=== PATIENT | female | born 1935 | race Caucasian/White ===

== ENCOUNTER 2016-07-22 19:31 | Inpatient (IN) | payer OTHER, MEDICARE ==
[~2016-07-22] VITALS: Ht 160 cm; Wt 103.3 kg
[~2016-07-22 19:31] MED LIST: ALBU1AER9 INH; ALUM-30 PO; APIX1TAB PO; DICL1GEL28 TOP; DONE10TA12 PO; FAMO1CHW PO; FLUO40CA8 PO; LEVO88TA3 PO; LOSA100T65 PO; MULT-190 PO; MULT-513 PO; NEBI10TA2 PO; SIMV20TA2 PO; SYMIN/8045 INH; TRAZ1TAB16 PO
[2016-07-22] MEDS ORDERED: ONDANSETRON INJ 2 MG/ML 2 ML VIAL IV STA (19:53)
[2016-07-22] MEDS ORDERED: FENTANYL CITRATE INJ 50 MCG/1 ML 2 ML VIAL IV PRN (20:00)
--- NOTE | 2016-07-22 20:02 | EMERGENCY ROOM VISIT NOTE ---
History Report prepared by Phillip: Luis Friedman Under the Supervision of: Dr. Bang Martins D.O. First contact with patient: 19:35 Chief Complaint: HEADACHE Stated Complaint: HEADACHE History of Present Illness The patient is an 81 year old female who presents to the Emergency Room with complaints of an constant headache that began a few hours prior to arrival. She places the headache pain in her right eye and directly above the right eye. The patient's [id number] states that the patient has been having headaches and global weakness intermittently since she had a pulmonary embolism and a deep vein thrombosis roughly one year ago. Since these blood clots the patient has also been experiencing depression, and difficulty breathing, and difficulty balancing. She also complains of soreness in her joints and muscles. The patient has been experiencing these symptoms over the past year, but they were significantly worse today. The patient may have missed her dosage of daily medications today, but the family cannot be certain. She has not taken any pain medications for her headache. The family denies any falls recently, or nausea/ vomiting. Source of History: patient, family Onset: A few hours prior to arrival Position: head Timing: constant, other Associated Symptoms: + SOB, + fatigue, + weakness, No nausea, No vomiting Review of Systems See HPI for pertinent positives & negatives. A total of 10 systems reviewed and were otherwise negative. Past Medical & Surgical Medical Problems: (1) Asthma (2) Ataxia (3) Bronchitis (4) CKD (chronic kidney disease), stage III (5) Depression (6) Dyslipidemia (7) History of DVT (deep vein thrombosis) (8) History of pulmonary embolism (9) Hypertension (10) Hypothyroidism (11) Memory loss (12) Pneumonia (13) Type 2 diabetes mellitus Surgical Problems: (1) Status post appendectomy (2) Status post tonsillectomy Family History Heart disease Social History Smoking Status: Never Smoker Alcohol Use: none Drug Use: none Marital Status: Housing Status: lives alone Occupation Status: retired Current/Historical Medications Scheduled Apixaban (Eliquis), 2.5 MG PO BID Donepezil Hydrochloride (Aricept), 10 MG PO HS Fluoxetine (Prozac), 60 MG PO QAM Levothyroxine Sodium (Levothyroxine Sodium), 88 MCG PO QAM Losartan Potassium (Cozaar), 100 MG PO QAM Memantine (Namenda), 10 MG PO BID Nebivolol HCl (Bystolic), 5 MG PO HS Ocuvite Preservision (Ocuvite Preservision), 1 TAB PO DAILY Simvastatin (Zocor), 20 MG PO HS Trazodone Hcl (Desyrel), 50 MG PO UD Scheduled PRN Albuterol Hfa (Ventolin Hfa), 2 PUFFS INH QID PRN for SOB/Wheezing Alum & Mag Hydrox-Simethicone (Mylanta), 15 ML PO QID PRN for indigestion Budesonide/Formoterol Fumarate (Symbicort 80/4.5 Inhaler), 2 PUFFS INH BID PRN for asthma symptoms Allergies Coded Allergies: Codeine (Verified Allergy, Unknown, unk, 07/22/16) Fluticasone (Verified Allergy, Unknown, unk, 07/22/16) Macrolides and Ketolides (Verified Allergy, Unknown, PT UNSURE, 07/22/16) Milk Protein Extract (Verified Allergy, Unknown, unk, 07/22/16) Salmeterol (Verified Allergy, Unknown, unk, 07/22/16) Sulfa Antibiotics (Verified Allergy, Unknown, PT UNSURE, 07/22/16) Troleandomycin (Verified Allergy, Unknown, unk, 07/22/16) Physical Exam Vital Signs Date Time Temp Pulse Resp B/P Pulse Ox O2 Delivery O2 Flow Rate FiO2 07/23/16 02:00 50 20 149/67 96 Nasal Cannula 07/23/16 01:32 56 16 132/56 96 Room Air 2.0 07/23/16 01:00 53 07/23/16 00:25 87 Room Air 07/23/16 00:17 53 16 128/56 93 Room Air 07/22/16 23:01 59 20 147/60 98 Room Air 07/22/16 22:31 52 15 98 07/22/16 22:29 147/62 07/22/16 22:01 52 15 98 07/22/16 21:58 153/62 07/22/16 21:31 94 2.0 07/22/16 21:31 53 17 98 07/22/16 21:29 157/64 07/22/16 21:02 53 07/22/16 21:01 53 21 97 07/22/16 20:59 168/66 1/24/17 20:28 92 Room Air 07/22/16 19:38 36.7 58 18 174/91 95 Room Air Physical Exam GENERAL: Patient is awake, alert, and in no acute distress. Patient is resting comfortably and showing no signs of anxiety EYES: The conjunctivae are clear. The pupils are constricted but reactive. EARS, NOSE, MOUTH AND THROAT: The nose is without any evidence of any deformity. Mucous membranes are moist tongue is midline NECK: The neck is nontender and supple. RESPIRATORY: Normal respiratory effort is noted there is no evidence of wheezing rhonchi or rales CARDIOVASCULAR: Regular rate and rhythm noted there no murmurs rubs or gallops normal S1 normal S2 GASTROINTESTINAL: The abdomen is soft. Bowel sounds are present in all quadrants. Abdomen is nontender MUSCULOSKELETAL/EXTREMITIES: There is no evidence of gross deformity full range of motion is noted in the hips and shoulders SKIN: Trace pedal edema bilaterally. There is no obvious evidence of any rash. There are no petechiae, pallor or cyanosis noted. NEUROLOGIC: Patient is oriented to person place and time. Strength is diminished but equal. No drift noted. Medical Decision & Procedures ER Provider Diagnostic Interpretation: X ray results and stated below per my interpretation and radiology interpretation. Other radiology results per my review and radiologist interpretation: CHEST ONE VIEW PORTABLE CLINICAL HISTORY: Altered mental status. Weakness. COMPARISON STUDY: Chest radiograph April 16, 2016. FINDINGS: Lung volumes are normal. There is no pneumothorax or pleural effusion. Moderate cardiomegaly is unchanged. There is no evidence of pulmonary edema. Mild mediastinal widening is likely due to dilatation of the central pulmonary arteries. This is unchanged. The appearance of the chest is unchanged. IMPRESSION: No acute findings. Stable cardiomegaly. Electronically signed by: Tanner Zambrano M.D. 07/22/2016 8:11 PM Dictated Date/Time: 07/22/2016 8:[address] OF THE HEAD WITHOUT CONTRAST CLINICAL HISTORY: Altered mental status. Weakness. Headache. COMPARISON STUDY: Head CT September 26, 2013. CT DOSE: 537.48 mGy.cm TECHNIQUE: Helical axial images of the head were obtained without IV contrast. Automated exposure control was utilized for the study. FINDINGS: No acute intracranial hemorrhage, midline shift or mass effect is present. Ventricular system is stable. The basilar cisterns are patent. There are no extra-axial collections. Hu-white differentiation is maintained. White matter hypodensity suggests small vessel disease. There are no findings to suggest acute dural sinus thrombosis or acute territorial infarct. There are no significant calvarial abnormalities. There is minimal mucosal thickening of the sinuses. Mastoid air cells are clear. IMPRESSION: No acute intracranial findings. Electronically signed by: Tanner Zambrano M.D. 07/22/2016 8:56 PM Dictated Date/Time: 07/22/2016 8:54 PM Laboratory Results 07/22/16 19:00 Red Blood Count 4.18, Mean Corpuscular Volume 91.4, Mean Corpuscular Hemoglobin 30.6, Mean Corpuscular Hemoglobin Concent 33.5, Mean Platelet Volume 10.0, Neutrophils (%) (Auto) 75.0, Lymphocytes (%) (Auto) 16.8, Monocytes (%) (Auto) 6.3, Eosinophils (%) (Auto) 0.9, Basophils (%) (Auto) 0.3, Neutrophils # (Auto) 5.08, Lymphocytes # (Auto) 1.14, Monocytes # (Auto) 0.43, Eosinophils # (Auto) 0.06, Basophils # (Auto) 0.02 Test 07/22/16 19:00 White Blood Count 6.78 K/uL (4.8-10.8) Red Blood Count 4.18 M/uL (4.2-5.4) Hemoglobin 12.8 g/dL (12.0-16.0) Hematocrit 38.2 % (37-47) Mean Corpuscular Volume 91.4 fL (80-100) Mean Corpuscular Hemoglobin 30.6 pg (25-34) Mean Corpuscular Hemoglobin Concent 33.5 g/dl (32-36) Platelet Count 202 K/uL (130-400) Mean Platelet Volume 10.0 fL (7.4-10.4) Neutrophils (%) (Auto) 75.0 % Lymphocytes (%) (Auto) 16.8 % Monocytes (%) (Auto) 6.3 % Eosinophils (%) (Auto) 0.9 % Basophils (%) (Auto) 0.3 % Neutrophils # (Auto) 5.08 K/uL (1.4-6.5) Lymphocytes # (Auto) 1.14 K/uL (1.2-3.4) Monocytes # (Auto) 0.43 K/uL (0.11-0.59) Eosinophils # (Auto) 0.06 K/uL (0-0.5) Basophils # (Auto) 0.02 K/uL (0-0.2) RDW Standard Deviation 44.8 fL (36.4-46.3) RDW Coefficient of Variation 13.5 % (11.5-14.5) Immature Granulocyte % (Auto) 0.7 % Immature Granulocyte # (Auto) 0.05 K/uL (0.00-0.02) Prothrombin Time 11.8 SECONDS (9.0-12.0) Prothromb Time International Ratio 1.1 (0.9-1.1) Activated Partial Thromboplast Time 27.0 SECONDS (21.0-31.0) Partial Thromboplastin Ratio 1.0 Total Bilirubin 0.4 mg/dl (0.2-1) Direct Bilirubin < 0.1 mg/dl (0-0.2) Aspartate Amino Transf (AST/SGOT) 14 U/L (15-37) Alanine Aminotransferase (ALT/SGPT) 24 U/L (12-78) Alkaline Phosphatase 77 U/L (45-117) Total Creatine Kinase 27 U/L (26-192) Creatine Kinase MB 0.5 ng/ml (0.5-3.6) Creatine Kinase MB Ratio 1.9 (0-3.0) Troponin I < 0.015 ng/ml (0-0.045) Total Protein 6.5 gm/dl (6.4-8.2) Albumin 3.2 gm/dl (3.4-5.0) Lipase 395 U/L (73-393) Thyroid Stimulating Hormone (TSH) 2.240 uIu/ml (0.300-4.500) Free Thyroxine 1.17 ng/dl (0.80-1.60) Laboratory results per my review. Medications Administered Medications (Trade) Dose Ordered Sig/Conor Route Start Time Stop Time Status Last Admin Dose Admin Fentanyl Citrate (Fentanyl Inj) 50 mcg Q1H PRN IV 07/22/16 20:00 07/23/16 04:00 DC 07/22/16 20:39 50 MCG Ondansetron HCl (Zofran Inj) 4 mg NOW STAT IV 07/22/16 19:53 07/22/16 19:56 DC 07/22/16 20:36 4 MG Magnesium Sulfate (Magnesium Sulfate) 1 gm NOW STAT IV 07/22/16 20:56 07/22/16 20:57 DC 07/22/16 21:00 1 GM ECG Indication: weakness Rate (beats per minute): 54 Rhythm: sinus bradycardia Findings: no acute ischemic change, no ectopy Comparison ECG Date: 04/16/2016 Change: no significant change ED Course 1937: The patient was evaluated in room B2. A complete history and physical examination were performed. 1952: Ordered Zofran 4 mg IV. 1999: Ordered Fentanyl 50 mcg IV. 2055: Ordered Magnesium Sulfate 1 gm IV. 6: I reevaluated the patient at this time. She is doing well. 9: I reevaluated the patient at this time, she remains unchanged. 0050: I discussed the [facility], he will evaluate the patient for further treatment. Medical Decision The patient's history was concerning for headache. Differential diagnosis: Etiologies such as migraine headache, meningitis, sinusitis, CO exposure, ICH, SAH, infection, tumor, headache, sinus thrombosis, arterial dissection, as well as others were entertained. Additional history is obtained from the patient's family members. The patient is an 81-year-old female who presented to the emergency department with family members. The patient has been having a decline in her mentation and has been noticing generalized weakness which is been increasing over the last few months. The patient was diagnosed with a pulmonary embolism last year. She is on blood thinners. She's been having increasing weakness and fatigue and has not been as active according to the family members. She also complains of a headache. The patient was treated with IV pain medication IV antiemetics and IV magnesium because of a low magnesium level on laboratory testing and on subsequent reevaluation was feeling much better. I discussed the patient's laboratory and radiographic studies with her. She tried to ambulate with nursing staff but was very difficult with her ambulation. Her family was very concerned and did not feel she was safe to go home. For this reason I discussed her case with the on-call [facility] hospitalist group. They have agreed to evaluate the patient in the emergency department for further management and disposition. I discussed the patient's laboratory and radiographic studies with her and her family members. Consults Time Called: 40 Consulting Physician: Dr. Tiffanie Tierney Hospitalist Returned Call: [phone] I discussed the case with Dr. Tiffanie Tierney Hospitalist, he will evaluate the patient for further treatment. Impression Primary Impression: Headache Additional Impressions: Weakness Hypomagnesemia Memory difficulties Hypoxia Ataxia Scribe Attestation The scribe's documentation has been prepared under my direction and personally reviewed by me in its entirety. I confirm that the note above accurately reflects all work, treatment, procedures, and medical decision making performed by me. Departure Information Dispostion Being Evaluated By Hospitalist Referrals Gatito Monsalve M.D. (PCP) Patient Instructions My [facility] Problem Qualifiers Primary Impression: Headache Intractability: intractable
[2016-07-22 20:04] LABS: BASO % 0.3 %; BASO ABS # 0.02 K/uL (0-0.2); COMPLETE YES; EOS % 0.9 %; HEMATOCRIT 38.2 % (37-47); IG% 0.7 %; LYMPH % 16.8 %; LYMPH ABS # 1.14 K/uL (1.2-3.4); MEAN CELL VOLUME 91.4 fL (80-100); MEAN CORPUSCULAR HEMOGLOBIN 30.6 pg (25-34); MEAN CORPUSCULAR HGB CONC 33.5 g/dl (32-36); MONO % 6.3 %; PLATELET COUNT 202 K/uL (130-400); RED BLOOD COUNT 4.18 M/uL (4.2-5.4); WHITE BLOOD COUNT 6.78 K/uL (4.8-10.8)
--- NOTE | 2016-07-22 20:13 | DIAGNOSTIC IMAGING REPORT ---
CHEST ONE VIEW PORTABLE CLINICAL HISTORY: Altered mental status. Weakness. COMPARISON STUDY: Chest radiograph April 16, 2016. FINDINGS: Lung volumes are normal. There is no pneumothorax or pleural effusion. Moderate cardiomegaly is unchanged. There is no evidence of pulmonary edema. Mild mediastinal widening is likely due to dilatation of the central pulmonary arteries. This is unchanged. The appearance of the chest is unchanged. IMPRESSION: No acute findings. Stable cardiomegaly. Electronically signed by: Tanner Zambrano M.D. 07/22/2016 8:11 PM Dictated Date/Time: 07/22/2016 8:09 PM
[2016-07-22 20:15] LABS: ALT/SGPT 24 U/L (12-78); AST/SGOT 14 U/L (15-37); BLOOD UREA NITROGEN 22 mg/dl (7-18); BUN/CREATININE RATIO 13.9 (10-20); CALCIUM 9.4 mg/dl (8.5-10.1); CARBON DIOXIDE 33 mmol/L (21-32); CHLORIDE 103 mmol/L (98-107); GLUCOSE 173 mg/dl (70-99); MAGNESIUM 1.5 mg/dl (1.8-2.4); POTASSIUM 3.8 mmol/L (3.5-5.1); SODIUM 143 mmol/L (136-145)
[2016-07-22 20:22] LABS: INR 1.1 (0.9-1.1); PROTHROMBIN TIME (PATIENT) 11.8 SECONDS (9.0-12.0)
[2016-07-22 20:23] LABS: ALKALINE PHOSPHATASE 77 U/L (45-117); CKMB/CK RATIO 1.9 (0-3.0)
[2016-07-22] MEDS ORDERED: BYS5 PO (20:27)
[2016-07-22] MEDS ORDERED: VNTHFA/IN INH (20:27)
[2016-07-22] MEDS ORDERED: FLUO20CA35 PO (20:27)
[2016-07-22] MEDS ORDERED: NMN10 PO (20:27)
[2016-07-22] MEDS ORDERED: MAGNESIUM SULFATE 1GM / D5W 1 GM BAG IV STA (20:56)
--- NOTE | 2016-07-22 20:58 | DIAGNOSTIC IMAGING REPORT ---
CT OF THE HEAD WITHOUT CONTRAST CLINICAL HISTORY: Altered mental status. Weakness. Headache. COMPARISON STUDY: Head CT September 26, 2013. CT DOSE: 537.48 mGy.cm TECHNIQUE: Helical axial images of the head were obtained without IV contrast. Automated exposure control was utilized for the study. FINDINGS: No acute intracranial hemorrhage, midline shift or mass effect is present. Ventricular system is stable. The basilar cisterns are patent. There are no extra-axial collections. Hu-white differentiation is maintained. White matter hypodensity suggests small vessel disease. There are no findings to suggest acute dural sinus thrombosis or acute territorial infarct. There are no significant calvarial abnormalities. There is minimal mucosal thickening of the sinuses. Mastoid air cells are clear. IMPRESSION: No acute intracranial findings. Electronically signed by: Tanner Zambrano M.D. 07/22/2016 8:56 PM Dictated Date/Time: 07/22/2016 8:54 PM
[2016-07-22 23:35] LABS: URINE APPEARANCE CLEAR (CLEAR); URINE BILIRUBIN NEG (NEG); URINE COLOR YELLOW; URINE NITRITE NEG (NEG); URINE SPECIFIC GRAVITY 1.016 (1.000-1.030); UROBILINOGEN NEG (NEG)
[2016-07-22 23:45] LABS: MANUAL MICROSCOPIC REQUIRED? NO; REVIEW REQ? NO
[2016-07-23] VITALS (7 sets, daily range): BP systolic 97–130; BP diastolic 50–69; PULSE 51–60; TEMP 36.3–36.9; O2SAT 92–95; BMI 40.8
--- NOTE | 2016-07-23 02:29 | History and Physical ---
History & Physical Date & Time of Service: Jul 23, 2016 at 02:28 . Chief Complaint: headache, weakness, confusion . Primary Care Physician: Gatito Monsalve M.D. . History of Present Illness Source: patient, family, hospital records 81 [address]O female followed by Dr. Monsalve. History of hypertension, pulmonary embolism, and other problems noted below. She is a and lives by herself at [facility]. Family checks on her regularly and Home Health Nursing assists with her care. Admitted with DVT LLE + pulmonary emboli January 2015. Discharged on warfarin and eventually transitioned to apixaban which she continues to take. Has had problems with memory, unsteady gain, and depression since that hospitalization. Takes donepezil and memantine, but family doesn't feel that she has dementia. She was in her usual recent state of health until yesterday. Apparently her home health nurse had made some recommendations regarding her medication administration routine. There were no medications, but the nurse had recommended using a pill box. Her family checked on her yesterday afternoon (07/22) and found her to be confused and weaker / unsteadier than usual. No new specific focal neuro deficits. She complained of a headache. BP was noted to be 200/110. Family noted that she had not take her morning medications. Most of the above history was provided by the patient's family. She repeatedly stated that she did not feel well, but was not able to explain what symptoms she was experiencing. Family has been concerned that her appetite has declined and she has not been eating well. . Past Medical/Surgical History Chronic Medical Problems: (1) Asthma Status: Chronic (2) Ataxia Status: Chronic (3) Bronchitis Status: Resolved (4) CKD (chronic kidney disease), stage III Status: Chronic (5) Depression Status: Chronic (6) Dyslipidemia Status: Chronic (7) History of DVT (deep vein thrombosis) Permanent Comment: LLE 2014 Status: Chronic (8) History of pulmonary embolism Permanent Comment: 2014 Status: Chronic (9) Hypertension Status: Chronic (10) Hypothyroidism Status: Chronic (11) Memory loss Status: Chronic (12) Pneumonia Status: Resolved (13) Type 2 diabetes mellitus Permanent Comment: diet-controlled Status: Chronic Surgical Problems: (1) Status post appendectomy Status: Chronic (2) Status post tonsillectomy Status: Chronic . Family History Heart disease Social History Smoking Status: Never Smoker Alcohol Use: none Drug Use: none Marital Status: Housing status: lives alone Occupational Status: retired Allergies Coded Allergies: Codeine (Verified Allergy, Unknown, unk, 07/22/16) Fluticasone (Verified Allergy, Unknown, unk, 07/22/16) Macrolides and Ketolides (Verified Allergy, Unknown, PT UNSURE, 07/22/16) Milk Protein Extract (Verified Allergy, Unknown, unk, 07/22/16) Salmeterol (Verified Allergy, Unknown, unk, 07/22/16) Sulfa Antibiotics (Verified Allergy, Unknown, PT UNSURE, 07/22/16) Troleandomycin (Verified Allergy, Unknown, unk, 07/22/16) Home Medications Scheduled Apixaban (Eliquis), 2.5 MG PO BID Donepezil Hydrochloride (Aricept), 10 MG PO HS Fluoxetine (Prozac), 60 MG PO QAM Levothyroxine Sodium (Levothyroxine Sodium), 88 MCG PO QAM Losartan Potassium (Cozaar), 100 MG PO QAM Memantine (Namenda), 10 MG PO BID Nebivolol HCl (Bystolic), 5 MG PO HS Ocuvite Preservision (Ocuvite Preservision), 1 TAB PO DAILY Simvastatin (Zocor), 20 MG PO HS Trazodone Hcl (Desyrel), 50 MG PO UD Scheduled PRN Albuterol Hfa (Ventolin Hfa), 2 PUFFS INH QID PRN for SOB/Wheezing Alum & Mag Hydrox-Simethicone (Mylanta), 15 ML PO QID PRN for indigestion Budesonide/Formoterol Fumarate (Symbicort 80/4.5 Inhaler), 2 PUFFS INH BID PRN for asthma symptoms Review of Systems (reliability uncertain because of confusion) . Constitutional: + weakness, No fever, No weight loss Eyes: + worsening of vision (macular degen) ENT: No hearing loss, No sore throat Respiratory: + dyspnea on exertion, No cough, No wheezing Cardiovascular: No chest pain, No edema, No palpitations Abdomen: + constipation, + problem reported (anorexia), No GI bleeding, No diarrhea, No nausea, No pain, No vomiting Musculoskeletal: + joint pain Genitourinary - Female: No dysuria, No hematuria Neurologic: + balance problems, + memory loss, + weakness Psychiatric: + depression symptoms Endocrine: + fatigue, No excessive thirst, No excessive urination Hematologic / Lymphatic: + abnormal bleeding/bruising, No swollen lymph nodes Integumentary: No new/changing skin lesions, No rash Physical Exam Vital Signs Date Time Temp Pulse Resp B/P Pulse Ox O2 Delivery O2 Flow Rate FiO2 07/23/16 02:00 50 20 149/67 96 Nasal Cannula 07/23/16 01:32 56 16 132/56 96 Room Air 2.0 07/23/16 01:00 53 07/23/16 00:25 87 Room Air 07/23/16 00:17 53 16 128/56 93 Room Air 07/22/16 23:01 59 20 147/60 98 Room Air 07/22/16 22:31 52 15 98 07/22/16 22:29 147/62 07/22/16 22:01 52 15 98 07/22/16 21:58 153/62 07/22/16 21:31 94 2.0 07/22/16 21:31 53 17 98 07/22/16 21:29 157/64 07/22/16 21:02 53 07/22/16 21:01 53 21 97 07/22/16 20:59 168/66 07/22/16 20:28 92 Room Air 07/22/16 19:38 36.7 58 18 174/91 95 Room Air General Appearance: WD/WN, no apparent distress, + pertinent finding (upset) Head: normocephalic, atraumatic Eyes: normal inspection, PERRL, EOMI, sclerae normal, + pertinent finding ( conjunctivae pink) ENT: normal ENT inspection, hearing grossly normal, pharynx normal, + pertinent finding (upper and lower dentures) Neck: supple, no adenopathy, thyroid normal, no JVD, no carotid bruits, trachea midline Respiratory/Chest: lungs clear, normal breath sounds, no respiratory distress, no accessory muscle use Cardiovascular: regular rate, rhythm, no edema, no gallop, no JVD, no murmur, + gallop/S4 Abdomen/GI: normal bowel sounds, soft, no organomegaly, no pulsatile mass, + tenderness (?? 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 as tested (PERRL, EOMI, no facial palsy), no motor/sensory deficits, alert, + abnormal reflexes (patellar DTR's hyperreflexic ), + depressed affect, + disoriented (oriented to person, place, month, year, president) Skin: normal color, warm/dry, no rash Lymphatic: no adenopathy Diagnostics Laboratory Results Results Past 24 Hours Test 07/22/16 19:00 07/22/16 23:20 Range/Units White Blood Count 6.78 4.8-10.8 K/uL Red Blood Count 4.18 4.2-5.4 M/uL Hemoglobin 12.8 12.0-16.0 g/dL Hematocrit 38.2 37-47 % Mean Corpuscular Volume 91.4 80-100 fL Mean Corpuscular Hemoglobin 30.6 25-34 pg Mean Corpuscular Hemoglobin Concent 33.5 32-36 g/dl Platelet Count 202 130-400 K/uL Mean Platelet Volume 10.0 7.4-10.4 fL Neutrophils (%) (Auto) 75.0 % Lymphocytes (%) (Auto) 16.8 % Monocytes (%) (Auto) 6.3 % Eosinophils (%) (Auto) 0.9 % Basophils (%) (Auto) 0.3 % Neutrophils # (Auto) 5.08 1.4-6.5 K/uL Lymphocytes # (Auto) 1.14 1.2-3.4 K/uL Monocytes # (Auto) 0.43 0.11-0.59 K/uL Eosinophils # (Auto) 0.06 0-0.5 K/uL Basophils # (Auto) 0.02 0-0.2 K/uL RDW Standard Deviation 44.8 36.4-46.3 fL RDW Coefficient of Variation 13.5 11.5-14.5 % Immature Granulocyte % (Auto) 0.7 % Immature Granulocyte # (Auto) 0.05 0.00-0.02 K/uL Prothrombin Time 11.8 9.0-12.0 SECONDS Prothromb Time International Ratio 1.1 0.9-1.1 Activated Partial Thromboplast Time 27.0 21.0-31.0 SECONDS Partial Thromboplastin Ratio 1.0 Sodium Level 143 136-145 mmol/L Potassium Level 3.8 3.5-5.1 mmol/L Chloride Level 103 98-107 mmol/L Carbon Dioxide Level 33 21-32 mmol/L Anion Gap 7.0 3-11 mmol/L Blood Urea Nitrogen 22 7-18 mg/dl Creatinine 1.60 0.60-1.20 mg/dl Est Creatinine Clear Calc Drug Dose 31.4 ml/min Estimated GFR () 34.4 Estimated GFR (Non- 29.7 BUN/Creatinine Ratio 13.9 10-20 Random Glucose 173 70-99 mg/dl Calcium Level 9.4 8.5-10.1 mg/dl Magnesium Level 1.5 1.8-2.4 mg/dl Total Bilirubin 0.4 0.2-1 mg/dl Direct Bilirubin < 0.1 0-0.2 mg/dl Aspartate Amino Transf (AST/SGOT) 14 15-37 U/L Alanine Aminotransferase (ALT/SGPT) 24 12-78 U/L Alkaline Phosphatase 77 45-117 U/L Total Creatine Kinase 27 26-192 U/L Creatine Kinase MB 0.5 0.5-3.6 ng/ml Creatine Kinase MB Ratio 1.9 0-3.0 Troponin I < 0.015 0-0.045 ng/ml Total Protein 6.5 6.4-8.2 gm/dl Albumin 3.2 3.4-5.0 gm/dl Lipase 395 73-393 U/L Thyroid Stimulating Hormone (TSH) 2.240 0.300-4.500 uIu/ml Free Thyroxine 1.17 0.80-1.60 ng/dl Urine Color YELLOW Urine Appearance CLEAR CLEAR Urine pH 6.0 4.5-7.5 Urine Specific [place] 1.016 1.000-1.030 Urine Protein NEG NEG Urine Glucose (UA) NEG NEG Urine Ketones NEG NEG Urine Occult Blood NEG NEG Urine Nitrite NEG NEG Urine Bilirubin NEG NEG Urine Urobilinogen NEG NEG Urine Leukocyte Esterase TRACE NEG Urine WBC (Auto) 1-5 0-5 /hpf Urine RBC (Auto) 10-30 0-4 /hpf Urine Hyaline Casts (Auto) 1-5 0-5 /lpf Urine Epithelial Cells (Auto) 10-20 0-5 /lpf Urine Bacteria (Auto) NEG NEG Diagnostic Radiology CHEST ONE VIEW PORTABLE IMPRESSION: No acute findings. Stable cardiomegaly. Electronically signed by: Tanner Zambrano M.D. 07/22/2016 8:[address] OF THE HEAD WITHOUT CONTRAST FINDINGS: No acute intracranial hemorrhage, midline shift or mass effect is present. Ventricular system is stable. The basilar cisterns are patent. There are no extra-axial collections. Hu-white differentiation is maintained. White matter hypodensity suggests small vessel disease. There are no findings to suggest acute dural sinus thrombosis or acute territorial infarct. There are no significant calvarial abnormalities. There is minimal mucosal thickening of the sinuses. Mastoid air cells are clear. IMPRESSION: No acute intracranial findings. Electronically signed by: Tanner Zambrano M.D. 07/22/2016 8:56 PM . EKG EKG performed at 20:27 reviewed and demonstrated SB at 54 / minute, poor R-wave progression, inverted T-waves V1-V2, no acute ST changes. . Impression Assessment and Plan ALTERED MENTAL STATUS / ATAXIA Patient presented with worsening confusion and worsening generalized weakness / ataxia (present for more than 1 year, but acutely worse). Apparently did not take her morning meds. BP was significantly elevated. On apixaban for history of VTE. Head CT negative for bleed or other apparent acute event. Altered mental status may have been due to missing her meds or possibly due to elevated BP. Check MRI brain. Consult Neurology re: memory loss + ataxia. PT / OT evals. HYPERTENSION BP 200/110 at home. Continue losartan. Continue nebivolol with caution in light of bradycardia. Consider switching from nebivolol to amlodipine. BRADYCARDIA On nebivolol for hypertension. TSH normal. Monitor on Telemetry Unit. HYPOXIA / SPRAGUE Family has noted SPRAGUE. History of asthma, but appears to be stable. O2 sats noted to be in the 80's with ambulation in ED. Acute PE unlikely in light of chronic anticoagulation. Chest x-ray shows cardiomegaly. EKG - ? old septal infarct. Check echo. Consider CTA chest if creatinine improves with hydration. Consider PFT's. HISTORY PULMONARY EMBOLISM + DVT Continue apixaban. ASTHMA Uses Symbicort and albuterol PRN. Try Symbicort as scheduled med. Consider PFT's. HYPOMAGNESEMIA Mg 1.5. No diarrhea. Not taking diuretics. Probably due to inadequate dietary intake. Received IV replacement in ED. Follow. ANOREXIA / ? ABDOMINAL TENDERNESS / MICROSCOPIC HEMATURIA Family has noted declining appetite. CT 2014 showed small pancreatic lesion. Abdominal exam- ?? diffuse mild tenderness. UA today shows microscopic hematuria. Lipase slightly elevated. LFT's OK. Consider CT abdomen and pelvis, ideally with IV and oral contrast, if creatinine improves (could be done with CTA chest). Check urine cytology. CKD III Serum creatinine at recent baseline of ~ 1.6. Try IV fluids to see if they offer any improvement. DM TYPE 2 Diet controlled. Random blood sugar 173 in ED. Check hemoglobin A1C. Tight control not indicated given patient's advanced age and co-morbidities. Follow. HYPOTHYROIDISM TSH normal. Continue levothyroxine. DYSLIPIDEMIA Continue simvastatin. DEPRESSION Continue fluoxetine and trazodone. MEMORY DEFICITS Patient has been experiencing memory difficulties since her PE in 2014. CT demonstrates small vessel ischemic changes- may have vascular dementia. Mother had history of apparent Alzheimer's disease. ? pseudodementia due to depression. TSH normal on levothyroxine. Check vitamin B12. Continue donepezil and memantine. Consult Neuro. 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 Continue apixaban. RESUSCITATION STATUS Discussed with patient and her family. She has a living will. She would like resuscitation attempted in the event of a cardiopulmonary arrest if there is a reasonable chance of a meaningful recovery, but does not want prolonged extraordinary measures if prognosis is poor. Therefore, code status = "Level 1" (full resuscitation). DISPOSITION Admit to Telemetry Unit. Discharge disposition to be determined. Internal Medicine follow-up with Dr. Monsalve. . VTE Prophylaxis Given or contraindicated: Other Anticoagulation (apixaban) Additional Copies To Gatito Monsalve M.D.
[2016-07-23] MEDS ORDERED: ACETAMINOPHEN 325 MG TAB PO PRN (02:30)
[2016-07-23] MEDS ORDERED: TRAZODONE HCL 50 MG TAB PO SCH (03:00)
[2016-07-23] MEDS ORDERED: POTASSIUM CHLORIDE IV SCH (04:15)
[2016-07-23] MEDS ORDERED: MAG SULFATE IV SCH (04:15)
[2016-07-23] MEDS ORDERED: [UNRECOGNIZED DRUG - OTHER] IV SCH (04:15)
[2016-07-23] MEDS ORDERED: PNEUMOCOCCAL ADMINISTRATION CHARGE ONE (06:15)
[2016-07-23] MEDS ORDERED: PNEUMOCOCCAL POLYSACCHARIDES 25 MCG/0.5 ML VIAL/SYR IM. ONE (06:15)
[2016-07-23] MEDS ORDERED: INFLUENZA ADMINISTRATION CHARGE ONE (06:15)
[2016-07-23] MEDS ORDERED: INFLUENZA VIRUS QUAD VACCINE 0.5 ML SYR IM. ONE (06:15)
[2016-07-23] MEDS ORDERED: ALBUTEROL HFA 8 GM INHALER INH PRN (06:45)
[2016-07-23] MEDS ORDERED: ALUMINUM/MAGNESIUM/SIMETH (MAALOX MAX) 30 ML UDC PO PRN (06:45)
[2016-07-23] MEDS: CEROVITE ADV FORMULA TAB PO SCH (08:34)
[2016-07-23] MEDS: APIXABAN 2.5 MG TAB PO SCH ×2 (08:39→20:43)
[2016-07-23] MEDS: FLUOXETINE HCL 20 MG CAP PO SCH (08:39)
[2016-07-23] MEDS: MEMANTINE 10 MG TAB PO SCH ×2 (08:40→20:50)
[2016-07-23] MEDS ORDERED: LOSARTAN POTASSIUM 50 MG TAB PO SCH (09:00)
--- NOTE | 2016-07-23 09:39 | DIAGNOSTIC IMAGING REPORT ---
MRI OF THE BRAIN WITHOUT CONTRAST CLINICAL HISTORY: Headaches, confusion and ataxia. COMPARISON STUDY: Head CTs September 26, 2013 and July 22, 2016. TECHNIQUE: Utilizing a 1.5 Agata magnet and dedicated coil, multiplanar, multiecho imaging of the brain was performed without IV contrast. FINDINGS: There are no areas of restricted diffusion. No acute intracranial hemorrhage, midline shift or mass effect is present. Ventricular system is unremarkable. The basilar cisterns are patent. There are no extra-axial collections. Moderate white matter T2 hyperintense foci are subcortical and periventricular in distribution. There is minimal mucosal thickening of the sinuses. Calvarium is intact. No intracranial masses identified on this unenhanced exam. IMPRESSION: 1. No acute intracranial findings. 2. Moderate small vessel disease. Electronically signed by: Tanner Zambrano M.D. 07/23/2016 9:37 AM Dictated Date/Time: 07/23/2016 9:26 AM
[2016-07-23 11:48] LABS: BUN/CREATININE RATIO 13.7 (10-20); CALCIUM 8.8 mg/dl (8.5-10.1); CREATININE 1.8 mg/dl (0.60-1.20); MAGNESIUM 2.1 mg/dl (1.8-2.4); POTASSIUM 4.5 mmol/L (3.5-5.1)
[2016-07-23] MEDS ORDERED: BUDESONIDE/FORMOTEROL FUMARATE 80/4.5 60 PUFFS/INHALER INH PRN (12:15)
[2016-07-23] MEDS ORDERED: PERFLUTREN LIPID MICROSPHERE (DEFINITY) IV ONE (15:17)
--- NOTE | 2016-07-23 15:54 | Neurology Consultation ---
Neurology Consultation Date of Consultation: Jul 23, 2016. Attending Physician: Aditi Youssef MD Primary Care Physician: Gatito Monsalve M.D. Reason for Consultation: ataxia progressive History of Present Illness Source: patient Dana is a 81 year old female who has a PMH hypothyroid, depression, PE/DVT , memory loss, asthma. She is a and lives at [facility]. She states she has visiting nursing to help with medications but she takes them herself and not sure if she is taking them right. she is still on apixaban. She states she has had problems with memory, unsteady gain, and depression since that hospitalization for her PE. Unclear why she was started on donepezil and memantine. She denies falls, SOB, CP, one side weakness, numbness, tingling, N, V. She states she doesn't do anything anymore. She did read alot but her glasses need changed and she doesn't have the money to get a new pair. she knows she doesn't eat well because she doesn't cook anymore. Past Medical/Surgical History Medical Problems: (1) Asthma Status: Chronic (2) Ataxia Status: Acute (3) Ataxia Status: Chronic (4) Bradycardia Status: Acute (5) Bronchitis, acute Status: Acute (6) CKD (chronic kidney disease), stage III Status: Chronic (7) Depression Status: Chronic (8) Dyslipidemia Status: Chronic (9) Headache Status: Acute (10) History of DVT (deep vein thrombosis) Permanent Comment: LL2014 Status: Chronic (11) History of pulmonary embolism Permanent Comment: 2014 Status: Chronic (12) Hypertension Status: Chronic (13) Hypomagnesemia Status: Acute (14) Hypothyroidism Status: Chronic (15) Hypoxia Status: Acute (16) Memory loss Status: Chronic (17) Precordial chest pain Status: Acute (18) Type 2 diabetes mellitus Permanent Comment: diet-controlled Status: Chronic (19) Weakness Status: Acute Surgical Problems: (1) Status post appendectomy Status: Chronic (2) Status post tonsillectomy Status: Chronic Social History Smoking Status: Never smoker Alcohol Use: none Drug Use: none Marital Status: Housing Status: lives alone Occupation Status: retired Allergies Coded Allergies: Codeine (Verified Allergy, Unknown, unk, 07/22/16) Fluticasone (Verified Allergy, Unknown, unk, 07/22/16) Macrolides and Ketolides (Verified Allergy, Unknown, PT UNSURE, 07/22/16) Milk Protein Extract (Verified Allergy, Unknown, unk, 07/22/16) Salmeterol (Verified Allergy, Unknown, unk, 07/22/16) Sulfa Antibiotics (Verified Allergy, Unknown, PT UNSURE, 07/22/16) Troleandomycin (Verified Allergy, Unknown, unk, 07/22/16) Current Inpatient Medications Current Inpatient Medications Medications (Trade) Dose Ordered Sig/Conor Route Start Time Stop Time Status Last Admin Dose Admin Acetaminophen (Tylenol Tab) 650 mg Q4H PRN PO 07/23/16 02:30 08/22/16 02:29 Albuterol (Ventolin Hfa Inhaler) 2 puffs QID PRN INH 07/23/16 06:45 08/22/16 06:44 Apixaban (Eliquis Tab) 2.5 mg BID PO 07/23/16 09:00 08/22/16 08:59 07/23/16 08:39 2.5 MG Donepezil HCl (Aricept Tab) 10 mg HS PO 07/23/16 21:00 08/22/16 20:59 Fluoxetine HCl (Prozac Cap) 60 mg QAM PO 07/23/16 09:00 08/22/16 08:59 07/23/16 08:39 60 MG Levothyroxine Sodium (Synthroid Tab) 88 mcg DAILYBB PO 07/24/16 06:30 08/23/16 06:29 Losartan Potassium (coZAAR TAB) 100 mg QAM PO 07/23/16 09:00 08/22/16 08:59 Future Hold 07/23/16 08:38 100 MG Memantine (Namenda Tab) 10 mg BID PO 07/23/16 09:00 08/22/16 08:59 07/23/16 08:40 10 MG Multivitamins/ Minerals (Multivitamin W/ Minerals Tab) 1 tab DAILY PO 07/23/16 09:00 08/22/16 08:59 07/23/16 08:34 1 TAB Simvastatin (Zocor Tab) 20 mg HS PO 07/23/16 21:00 08/22/16 20:59 Trazodone HCl (Desyrel Tab) 50 mg BID@1700,2100 PO 07/23/16 17:00 08/22/16 16:59 Al Hydrox/Mg Hydrox/Simethicone (Maalox Max Susp) 15 ml QID PRN PO 07/23/16 06:45 08/22/16 06:44 Nebivolol (Bystolic Tab) 5 mg HS PO 07/23/16 21:00 08/22/16 20:59 Future Hold Budesonide/ Formoterol Fumarate (Symbicort 80/ 4.5 Inh) 2 puffs BID PRN INH 07/23/16 12:15 08/22/16 12:14 Physical Exam Vital Signs (Past 24 Hrs): Date Time Temp Pulse Resp B/P Pulse Ox O2 Delivery O2 Flow Rate FiO2 07/23/16 12:23 95 Room Air 07/23/16 11:19 36.6 58 18 97/61 95 Room Air 07/23/16 08:00 92 Room Air 07/23/16 07:22 36.5 51 18 103/50 92 Room Air 07/23/16 04:53 36.3 53 16 130/69 Room Air 07/23/16 03:02 51 18 137/59 99 07/23/16 02:00 50 20 149/67 96 Nasal Cannula 07/23/16 01:32 56 16 132/56 96 Room Air 2.0 07/23/16 01:00 53 07/23/16 00:25 87 Room Air 07/23/16 00:17 53 16 128/56 93 Room Air 07/22/16 23:01 59 20 147/60 98 Room Air 07/22/16 22:31 52 15 98 07/22/16 22:29 147/62 07/22/16 22:01 52 15 98 07/22/16 21:58 153/62 07/22/16 21:31 94 2.0 07/22/16 21:31 53 17 98 07/22/16 21:29 157/64 07/22/16 21:02 53 07/22/16 21:01 53 21 97 07/22/16 20:59 168/66 07/22/16 20:28 92 Room Air 07/22/16 19:38 36.7 58 18 174/91 95 Room Air Physical Exam: Constitutional: appearance nourished, healthy and obese Ears, Nose, Mouth and Throat: mucous membranes moist, no injection and skin normal, eyes normal Cardiovascular: normal S-1 and S-2 and regular rate and rhythm Respiratory: clear to auscultation (CTA) and no rales, rhonchi or wheeze Musculoskeletal: no peripheral edema and good distal pulses Skin: no stigmata of neurocutaneous disease noted and normal and intact Eyes: extraocular muscles intact (EOMI) and pupils equal, round and reactive to light (PERRL) NEUROLOGIC EXAMINATION: Mental status: Alert and interactive Oriented to full date and location, president, location, can follow close eye stick out tongue point right hand to ceiling Oriented to person Speech fluent with no evidence of aphasia Cranial Nerves smile eye brow raise symmetric, tongue midline Reflexes: Deep tendon reflexes were symmetrical and graded 2/5. Plantar responses were flexor. Sensory: GT proprioception in tact bilaterally, vibration in tact cool touch decrease mid walters down Coordination: finger to nose without bi pass, essential tremor L> R Gait/Stance: Posture normal. walked from wheel chair to bedside chair with minimal assistance Motor: Negative for pronator drift of out stretched arms with eyes closed. Strength: biceps triceps hand formula mixer 5/5 bilaterally hip flex plantar flex ext bilaterally 5 /5 Laboratory Results Past 24 Hours: 07/22/16 19:00 Red Blood Count 4.18, Mean Corpuscular Volume 91.4, Mean Corpuscular Hemoglobin 30.6, Mean Corpuscular Hemoglobin Concent 33.5, Mean Platelet Volume 10.0, Neutrophils (%) (Auto) 75.0, Lymphocytes (%) (Auto) 16.8, Monocytes (%) (Auto) 6.3, Eosinophils (%) (Auto) 0.9, Basophils (%) (Auto) 0.3, Neutrophils # (Auto) 5.08, Lymphocytes # (Auto) 1.14, Monocytes # (Auto) 0.43, Eosinophils # (Auto) 0.06, Basophils # (Auto) 0.02 07/23/16 11:10 Test 07/22/16 19:00 07/22/16 23:20 07/23/16 11:10 White Blood Count 6.78 K/uL (4.8-10.8) Red Blood Count 4.18 M/uL (4.2-5.4) Hemoglobin 12.8 g/dL (12.0-16.0) Hematocrit 38.2 % (37-47) Mean Corpuscular Volume 91.4 fL (80-100) Mean Corpuscular Hemoglobin 30.6 pg (25-34) Mean Corpuscular Hemoglobin Concent 33.5 g/dl (32-36) Platelet Count 202 K/uL (130-400) Mean Platelet Volume 10.0 fL (7.4-10.4) Neutrophils (%) (Auto) 75.0 % Lymphocytes (%) (Auto) 16.8 % Monocytes (%) (Auto) 6.3 % Eosinophils (%) (Auto) 0.9 % Basophils (%) (Auto) 0.3 % Neutrophils # (Auto) 5.08 K/uL (1.4-6.5) Lymphocytes # (Auto) 1.14 K/uL (1.2-3.4) Monocytes # (Auto) 0.43 K/uL (0.11-0.59) Eosinophils # (Auto) 0.06 K/uL (0-0.5) Basophils # (Auto) 0.02 K/uL (0-0.2) RDW Standard Deviation 44.8 fL (36.4-46.3) RDW Coefficient of Variation 13.5 % (11.5-14.5) Immature Granulocyte % (Auto) 0.7 % Immature Granulocyte # (Auto) 0.05 K/uL (0.00-0.02) Prothrombin Time 11.8 SECONDS (9.0-12.0) Prothromb Time International Ratio 1.1 (0.9-1.1) Activated Partial Thromboplast Time 27.0 SECONDS (21.0-31.0) Partial Thromboplastin Ratio 1.0 Total Bilirubin 0.4 mg/dl (0.2-1) Direct Bilirubin < 0.1 mg/dl (0-0.2) Aspartate Amino Transf (AST/SGOT) 14 U/L (15-37) Alanine Aminotransferase (ALT/SGPT) 24 U/L (12-78) Alkaline Phosphatase 77 U/L (45-117) Total Creatine Kinase 27 U/L (26-192) Creatine Kinase MB 0.5 ng/ml (0.5-3.6) Creatine Kinase MB Ratio 1.9 (0-3.0) Troponin I < 0.015 ng/ml (0-0.045) Total Protein 6.5 gm/dl (6.4-8.2) Albumin 3.2 gm/dl (3.4-5.0) Lipase 395 U/L (73-393) Thyroid Stimulating Hormone (TSH) 2.240 uIu/ml (0.300-4.500) Free Thyroxine 1.17 ng/dl (0.80-1.60) Urine Color YELLOW Urine Appearance CLEAR (CLEAR) Urine pH 6.0 (4.5-7.5) Urine Specific [place] 1.016 (1.000-1.030) Urine Protein NEG (NEG) Urine Glucose (UA) NEG (NEG) Urine Ketones NEG (NEG) Urine Occult Blood NEG (NEG) Urine Nitrite NEG (NEG) Urine Bilirubin NEG (NEG) Urine Urobilinogen NEG (NEG) Urine Leukocyte Esterase TRACE (NEG) Urine WBC (Auto) 1-5 /hpf (0-5) Urine RBC (Auto) 10-30 /hpf (0-4) Urine Hyaline Casts (Auto) 1-5 /lpf (0-5) Urine Epithelial Cells (Auto) 10-20 /lpf (0-5) Urine Bacteria (Auto) NEG (NEG) Anion Gap 7.0 mmol/L (3-11) Est Creatinine Clear Calc Drug Dose 27.9 ml/min Estimated GFR () 29.9 Estimated GFR (Non- 25.8 BUN/Creatinine Ratio 13.7 (10-20) Calcium Level 8.8 mg/dl (8.5-10.1) Magnesium Level 2.1 mg/dl (1.8-2.4) Vitamin B12 Level 382 pg/mL (211-911) Imaging MRI brain without-. No acute intracranial findings. Moderate small vessel disease. CT head- no hemorrhage or acute findings. Impression 81 year old female with progressive ataxia and memory issues Plan 1. PT/OT for discharge needs 2. chronic renal disease and lyte replacement 3. unclear when trazadone was started 4. may need higher level of care 5. not eating and drinking well -nutrition consult 6. as out patient neuropsych consult may be helpful to sort out if this is dementia issues or depression 7. psychiatry while in hospital I have seen and discussed above patient with Dr Mynor Soto, neurology Patient seen and interviewed case discussed with Brigitte Alberto and Aditi Youssef MD Story is vague and complaints are hared to pin down Exam is nonfocal and Imaging is not out of keeping for age I am not sure thet there is a significant dementia here and suspect a chronic depression with more of a pseudodemtia and wonder if aricept and nameda combination are indicated and whether they may be contributing to some of the symptoms ie malaise fatigue and imbalance Agree with above plans particularly the need for psychiatry input we will see tomorrow Mynor Soto MD
--- NOTE | 2016-07-23 17:10 | Progress Note ---
Medicine Progress Note Date & Time of Visit: Jul 23, 2016 at 17:03. Subjective Patient seen and examined. Family present at bedside and updated. Patient feels tired today. Objective Last 8 Hrs Date Time Temp Pulse Resp B/P Pulse Ox O2 Delivery O2 Flow Rate FiO2 07/23/16 12:23 95 Room Air 07/23/16 11:19 36.6 58 18 97/61 95 Room Air Physical Exam: General-awake; alert; NAD; sitting in chair Eyes-EOMI; no scleral icterus Neck-no stridor; trachea midline Lungs-CTA bilaterally; no wheezes/crackles Heart-RRR; no m/r/g Abdomen-soft; NTND; nBS Extremities-no c/c/e; no deformity Neuro-no gross focal deficits Laboratory Results: Last 24 Hours Test 07/22/16 19:00 07/22/16 23:20 07/23/16 11:10 White Blood Count 6.78 K/uL Red Blood Count 4.18 M/uL Hemoglobin 12.8 g/dL Hematocrit 38.2 % Mean Corpuscular Volume 91.4 fL Mean Corpuscular Hemoglobin 30.6 pg Mean Corpuscular Hemoglobin Concent 33.5 g/dl Platelet Count 202 K/uL Mean Platelet Volume 10.0 fL Neutrophils (%) (Auto) 75.0 % Lymphocytes (%) (Auto) 16.8 % Monocytes (%) (Auto) 6.3 % Eosinophils (%) (Auto) 0.9 % Basophils (%) (Auto) 0.3 % Neutrophils # (Auto) 5.08 K/uL Lymphocytes # (Auto) 1.14 K/uL Monocytes # (Auto) 0.43 K/uL Eosinophils # (Auto) 0.06 K/uL Basophils # (Auto) 0.02 K/uL RDW Standard Deviation 44.8 fL RDW Coefficient of Variation 13.5 % Immature Granulocyte % (Auto) 0.7 % Immature Granulocyte # (Auto) 0.05 K/uL Prothrombin Time 11.8 SECONDS Prothromb Time International Ratio 1.1 Activated Partial Thromboplast Time 27.0 SECONDS Partial Thromboplastin Ratio 1.0 Sodium Level 143 mmol/L 143 mmol/L Potassium Level 3.8 mmol/L 4.5 mmol/L Chloride Level 103 mmol/L 103 mmol/L Carbon Dioxide Level 33 mmol/L 33 mmol/L Anion Gap 7.0 mmol/L 7.0 mmol/L Blood Urea Nitrogen 22 mg/dl 25 mg/dl Creatinine 1.60 mg/dl 1.80 mg/dl Est Creatinine Clear Calc Drug Dose 31.4 ml/min 27.9 ml/min Estimated GFR () 34.4 29.9 Estimated GFR (Non- 29.7 25.8 BUN/Creatinine Ratio 13.9 13.7 Random Glucose 173 mg/dl 226 mg/dl Calcium Level 9.4 mg/dl 8.8 mg/dl Magnesium Level 1.5 mg/dl 2.1 mg/dl Total Bilirubin 0.4 mg/dl Direct Bilirubin < 0.1 mg/dl Aspartate Amino Transf (AST/SGOT) 14 U/L Alanine Aminotransferase (ALT/SGPT) 24 U/L Alkaline Phosphatase 77 U/L Total Creatine Kinase 27 U/L Creatine Kinase MB 0.5 ng/ml Creatine Kinase MB Ratio 1.9 Troponin I < 0.015 ng/ml Total Protein 6.5 gm/dl Albumin 3.2 gm/dl Lipase 395 U/L Thyroid Stimulating Hormone (TSH) 2.240 uIu/ml Free Thyroxine 1.17 ng/dl Urine Color YELLOW Urine Appearance CLEAR Urine pH 6.0 Urine Specific [place] 1.016 Urine Protein NEG Urine Glucose (UA) NEG Urine Ketones NEG Urine Occult Blood NEG Urine Nitrite NEG Urine Bilirubin NEG Urine Urobilinogen NEG Urine Leukocyte Esterase TRACE Urine WBC (Auto) 1-5 /hpf Urine RBC (Auto) 10-30 /hpf Urine Hyaline Casts (Auto) 1-5 /lpf Urine Epithelial Cells (Auto) 10-20 /lpf Urine Bacteria (Auto) NEG Vitamin B12 Level 382 pg/mL Assessment & Plan ALTERED MENTAL STATUS / ATAXIA Patient presented with worsening confusion and worsening generalized weakness / ataxia (present for more than 1 year, but acutely worse). BP was significantly elevated on admission. Head CT negative for bleed or other apparent acute event. Altered mental status may have been due to missing her meds or possibly due to elevated BP. MRI brain with moderate small vessel disease. Neurology consulted. PT / OT evals. HYPERTENSION BP 200/110 at home. Received losartan. Will hold losartan and nebivolol for now due to low-normal blood pressures. BRADYCARDIA On nebivolol for hypertension. On hold. TSH normal. Monitor on Telemetry Unit. HYPOXIA / SPRAGUE Family has noted SPRAGUE. History of asthma, but appears to be stable. O2 sats noted to be in the 80's with ambulation in ED. Acute PE unlikely in light of chronic anticoagulation. Chest x-ray shows cardiomegaly. EKG - ? old septal infarct. Echo pending. Two step prior to discharge. DEPRESSION Continue fluoxetine and trazodone. Psychiatry consulted. HISTORY PULMONARY EMBOLISM + DVT Continue apixaban. ASTHMA Uses Symbicort and albuterol PRN. Try Symbicort as scheduled med. Consider outpatient PFT's. HYPOMAGNESEMIA Replaced and resolved. MICROSCOPIC HEMATURIA UA with microscopic hematuria on admission. Will repeat. Patient asymptomatic. CKD III Serum creatinine at recent baseline of ~ 1.6 - 1.9. DM TYPE 2 Diet controlled. Check hemoglobin A1C. HYPOTHYROIDISM TSH normal. Continue levothyroxine. DYSLIPIDEMIA Continue simvastatin. MEMORY DEFICITS Patient has been experiencing memory difficulties since her PE in 2014. CT demonstrates small vessel ischemic changes- may have vascular dementia. Mother had history of apparent Alzheimer's disease. ? pseudodementia due to depression. TSH normal on levothyroxine. Vitamin B12 normal. Continue donepezil and memantine. Consulted Neuro. 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 Continue apixaban. Consultants: Neurology Psychiatry Current Inpatient Medications: Current Inpatient Medications Medications (Trade) Dose Ordered Sig/Conor Route Start Time Stop Time Status Last Admin Dose Admin Acetaminophen (Tylenol Tab) 650 mg Q4H PRN PO 07/23/16 02:30 08/22/16 02:29 Albuterol (Ventolin Hfa Inhaler) 2 puffs QID PRN INH 07/23/16 06:45 08/22/16 06:44 Apixaban (Eliquis Tab) 2.5 mg BID PO 07/23/16 09:00 08/22/16 08:59 07/23/16 08:39 2.5 MG Donepezil HCl (Aricept Tab) 10 mg HS PO 07/23/16 21:00 08/22/16 20:59 Fluoxetine HCl (Prozac Cap) 60 mg QAM PO 07/23/16 09:00 08/22/16 08:59 07/23/16 08:39 60 MG Levothyroxine Sodium (Synthroid Tab) 88 mcg DAILYBB PO 07/24/16 06:30 08/23/16 06:29 Losartan Potassium (coZAAR TAB) 100 mg QAM PO 07/23/16 09:00 08/22/16 08:59 Future Hold 07/23/16 08:38 100 MG Memantine (Namenda Tab) 10 mg BID PO 07/23/16 09:00 08/22/16 08:59 07/23/16 08:40 10 MG Multivitamins/ Minerals (Multivitamin W/ Minerals Tab) 1 tab DAILY PO 07/23/16 09:00 08/22/16 08:59 07/23/16 08:34 1 TAB Simvastatin (Zocor Tab) 20 mg HS PO 07/23/16 21:00 08/22/16 20:59 Trazodone HCl (Desyrel Tab) 50 mg BID@1700,2100 PO 07/23/16 17:00 08/22/16 16:59 Al Hydrox/Mg Hydrox/Simethicone (Maalox Max Susp) 15 ml QID PRN PO 07/23/16 06:45 08/22/16 06:44 Nebivolol (Bystolic Tab) 5 mg HS PO 07/23/16 21:00 08/22/16 20:59 Future Hold Budesonide/ Formoterol Fumarate (Symbicort 80/ 4.5 Inh) 2 puffs BID PRN INH 07/23/16 12:15 08/22/16 12:14
--- NOTE | 2016-07-23 17:12 | PSYCHIATRIC CONSULTATION ---
DATE OF CONSULTATION: 07/23/2016 DATE OF CONSULTATION: 07/23/2016. IDENTIFYING INFORMATION: Dana Ruvalcaba is an 81-year-old female from [place] who has a history of depression, dementia, PE, DVT, hypothyroidism and asthma. She presented to the Emergency Room last evening with headache, weakness and confusion and was admitted to the hospitalist service. Psychiatry was consulted for depression at the patient's request. CHIEF COMPLAINT: "I think I am nuts, its the only thing I can figure out." HISTORY OF PRESENT ILLNESS: According to review of records, the patient presented to the Emergency Room yesterday with a chief complaint of headache. Family reported that she had been having more frequent headaches and intermittent weakness since an episode of PE and DVT about 1 year ago. Since that time she has also developed depression, difficulty breathing and poor balance. She also complained of soreness in her joints and muscles. She is in assisted living and has home nursing to assist with medication, but is not sure if she takes her medications appropriately and reports memory problems. She had been in her usual state of health until the day prior to presentation. Her family saw her that afternoon and she appeared confused and more weak and unsteady than usual. She reported the headache and blood pressure was significantly elevated to 200/110. Her family noted that she had not taken her morning medications. She told them that she did not feel well, but could not explain what symptoms she was experiencing. Chest x-ray and head CT showed no acute findings. An MRI of the brain has been ordered and neurology consulted for memory loss and ataxia as well as PT and OT evaluations. Blood pressure is being monitored on telemetry. Echo has been ordered due to cardiomegaly and recent dyspnea on exertion. She was initially continued on her home doses of fluoxetine and trazodone, and today psychiatry was consulted at her request. Brigitte FRANCO of neurology saw her today as well and recommended PT, OT and nutrition consults, consideration for a higher level of care, and outpatient neuropsych consult to help clarify diagnosis depression versus dementia. On my assessment, the patient is seated in her bedside chair and is quite pleasant and engaged in the interview. She states that she has had multiple medical problems that started acutely after an episode of DVT and PE in January 2015. She states that she has been feeling more depressed recently, although she denies any clear exacerbating factors, and is upset that "I don't have a good reason" for being depressed. She denies that she had any mental health history prior to her medical problems in January 2015. She endorses poor memory and forgetfulness as well as difficulty describing her feelings, saying "I know something is wrong, but I cannot explain it." She does admit to feeling more down lately, stating she is having "more bad days". Motivation is low and she notes she used to be much more active. Energy is low and she is easily fatigued. Sleep is typically good but for the past 2 nights prior to admission, she slept very poorly, and noted a subsequent decrease in her mood. She denies changes in appetite or weight and denies ever having suicidal thoughts. She denies symptoms of christel, psychosis and anxiety, but states she does feel more easily overwhelmed recently than she has in the past. PAST PSYCHIATRIC HISTORY: The patient has never seen a psychiatrist and her psychotropic medications are prescribed by her PCP, Dr. Hallie Monsalve. She initially states she has never been in therapy but then says that she was recently referred to [facility] where she saw somebody named Jac and was placed into group therapy which initially she enjoyed, but then stopped going over the past several weeks as she was not feeling well. She denies ever having a suicide attempt, engaging in self-injurious behavior or violence towards others and denies any history of psychiatric hospitalizations. She does not know if she has ever been on psychotropic meds in the past or how long she has been on the trazodone or fluoxetine. ALLERGIES: CODEINE, FLUTICASONE, MACROLIDES, KETOLIDES, MILK PROTEIN EXTRACT, SALMETEROL, SULFA ANTIBIOTICS. HOME MEDICATIONS: Fluoxetine 60 mg daily, trazodone 50 mg b.i.d. at supper and at bedtime, Zocor 20 mg at bedtime, Ocuvite PreserVision 1 tablet daily, Bystolic 5 mg at bedtime, Namenda 10 mg b.i.d., Cozaar 100 mg q.a.m., levothyroxine 88 mcg q.a.m., Aricept 10 mg at bedtime, Symbicort 80/4.5 inhaler 2 puffs b.i.d. p.r.n. asthma, Eliquis 2.5 mg b.i.d., Mylanta 15 mL q.i.d. p.r.n. indigestion, Ventolin inhaler 2 puffs q.i.d. p.r.n. shortness of breath. PAST MEDICAL HISTORY: PCP is Dr. Hallie Monsalve. 1. Hypertension. 2. 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 3. Hyperlipidemia. 4. Asthma. 5. Chronic ataxia. 6. Chronic kidney disease stage III. 7. Hypothyroidism. 8. Overweight. 9. Diabetes type 2. FAMILY HISTORY: The patient states that a brother had a "nervous breakdown" but she does not know what he was ultimately diagnosed with. She denies any family history of substance abuse or suicides. Medically there is a history of heart disease. SUBSTANCE ABUSE HISTORY: The patient has never used tobacco products, alcohol, or illicit drugs. SOCIAL HISTORY: The patient [place] outside [facility]. She currently lives alone in [place]. She had one marriage and her 23 years ago. She has 4 adult children with whom she has good relationships, but notes she does not like to tell them too much about her stress and mental health issues. REVIEW OF SYSTEMS: Ten systems reviewed and are negative except as stated above. LABORATORY DATA: CBC shows low red blood cells 4.18. PT and INR normal. Metabolic panel shows elevated carbon dioxide of 33, elevated BUN of 22 and elevated creatinine of 1.6, glucose high at 173. Magnesium low at 1.5, AST low at 14, albumin low at 3.2 and lipase elevated at 395. TSH was normal and free T4 was normal. Urinalysis showed trace leukocyte esterase, 10-30 red cells and 10-20 epithelial cells. Drug screen was not performed. Brain MRI showed moderate small vessel disease and no acute intracranial findings. MENTAL STATUS EXAMINATION: This is an overweight white female appearing her stated age. She is seated in a chair next to her bed wearing a hospital gown. Hair is styled and grooming and hygiene are good. She is calm, cooperative and pleasant, making jokes frequently throughout the assessment. She has good eye contact and no abnormal movements. Mood is "okay" and affect is stable, reactive and euthymic. Speech is spontaneous, normal rate, volume and tone. Thoughts are goal directed. She denies suicidality, homicidality, hallucinations, paranoia and delusions. She is alert and oriented to self, place, and time. She reports memory impairment, is unable to give information about her medical and psychiatric history. Language is grossly intact per interview. Level of intelligence estimated to be average. Insight and judgment are fair. FORMULATION: Dana Ruvalcaba is an 81-year-old white female who lives alone in [place] and has a history of depression and dementia managed by her PCP, Dr. Monsalve, and presented with acute on chronic weakness and headaches and was admitted medically. We have been consulted to address her depression. She does report worsening depression recently in the context of poor sleep and multiple medical problems. She is not able to tell me much about her psychiatric history including whether she has been on other antidepressants in the past or how long she has been on Prozac at her current dose. She had recently been referred for therapy but did not like the group setting and is not sure if she will agree to return. She certainly could benefit from outpatient therapy and possibly medication adjustments although I would like to get her outpatient records first to determine how long she has been on her current medication and what her response has been thus far to treatment. DIAGNOSES: 1. Depression, not otherwise specified (rule out depression secondary to a medical condition, i.e., stroke or dementia). 2. Dementia, not otherwise specified. 3. Multiple medical problems as above. RECOMMENDATIONS: 1. Depression: Will request records from her PCP, Dr. Monsalve, in an attempt to determine if she has been on previous psychotropic medications, how long she has been on fluoxetine, and whether or not it has been effective. Agree with outpatient therapy. She is not sure if she is willing to return to group therapy at [facility] where she has only been in treatment very briefly. Will ask the psychiatric liaison nurse to get a release and speak with staff there to determine if there are other options such as individual therapy that might be more to her liking. 2. Dementia: Management per neurology. Thank you for the consult. Please call with questions. MTDD
[2016-07-23] MEDS: TRAZODONE HCL 50 MG TAB PO SCH ×2 (17:44→20:43)
[2016-07-23 19:23] LABS: URINE APPEARANCE CLEAR (CLEAR); URINE BILIRUBIN NEG (NEG); URINE COLOR YELLOW; URINE EPITHELIAL CELL AUTO >30 /lpf (0-5); URINE NITRITE NEG (NEG); URINE SPECIFIC GRAVITY 1.017 (1.000-1.030); UROBILINOGEN NEG (NEG)
[2016-07-23 19:25] LABS: MANUAL MICROSCOPIC REQUIRED? NO; REVIEW REQ? NO
[2016-07-23] MEDS: SIMVASTATIN 20 MG TAB PO SCH (20:50)
[2016-07-23] MEDS ORDERED: NEBIVOLOL HCL 5 MG TAB PO SCH (21:00)
[2016-07-23] MEDS ORDERED: DONEPEZIL HCL 10 MG TAB PO SCH (21:00)
[2016-07-24] VITALS (12 sets, daily range): BP systolic 94–162; BP diastolic 53–87; PULSE 58–84; TEMP 36.6–36.7; O2SAT 91–97; Ht 160 cm; Wt 103.3 kg
[2016-07-24] MEDS: LEVOTHYROXINE 88 MCG TAB PO SCH (06:48)
[2016-07-24 08:32] LABS: ESTIMATED AVERAGE GLUCOSE 194 mg/dl; HA1C FLAG Normal (Normal)
[2016-07-24 08:43] LABS: BUN/CREATININE RATIO 16.1 (10-20); CALCIUM 8.6 mg/dl (8.5-10.1); CREATININE 1.8 mg/dl (0.60-1.20); MAGNESIUM 1.8 mg/dl (1.8-2.4); POTASSIUM 4.3 mmol/L (3.5-5.1)
[2016-07-24] MEDS: MEMANTINE 10 MG TAB PO SCH (09:45)
[2016-07-24] MEDS: CEROVITE ADV FORMULA TAB PO SCH (09:45)
[2016-07-24] MEDS: APIXABAN 2.5 MG TAB PO SCH ×2 (09:46→21:51)
[2016-07-24] MEDS: FLUOXETINE HCL 20 MG CAP PO SCH (09:46)
--- NOTE | 2016-07-24 12:44 | Clinical Documentation Query ---
CLINICAL DOCUMENTATION QUERY Dr. NG, In your clinical opinion is this patient being managed for: ( ) Hypertensive encephalopathy, POA ( X ) Other explanation of clinical findings (Depression) ( ) Unable to determine (Please Define) ( ) Need to Discuss ( ) Not Agree The medical record reflects the following clinical findings, treatment, and risk factors. Clinical Indicators: 81 yo female presenting with constant severe headache and confusion. EMS found pt with BP of 200/110. Family administered dose of bystolic. BP 174/91 upon arrival in ER. Treatment: MRI brain, neuro consult, IV fluids, tele monitoring Risk Factors: age, hypertension, CKD What is it? Hypertensive encephalopathy is a complication of hypertension.; it is a diffuse dysfunction of the brain due to increased intracranial pressure from elevated blood pressure Who's at Risk? Individuals with hypertension; the hypertension may be essential or due to chronic renal disease, acute glomerulonephritis, acute toxemia of , pheochromocytoma, or other causes. What are the Clinical Indicators? In this acute syndrome, severe hypertension is associated with headache, nausea, vomiting, convulsions, confusion, stupor, and eventual coma. Other clinical indicators include vision disturbances, hyperventilation, and epistaxis. Retinal hemorrhages and papilledema may occur; MRI of the brain often reveals a pattern of (reversible) cerebral edema occurring in the occiput and frontal areas of the brain in late or untreated cases. What is the Treatment Regimen? Emergent treatment for the elevated blood pressure i.e.: IV antihypertensives, 02 support, telemetry, CT of the head, neuro checks; lowering the blood pressure reverses the process, but stroke can occur, especially if blood pressure is lowered too rapidly. Please clarify and document your clinical opinion in the progress notes and discharge summary. Terms such as "probable", "suspected", "likely", "questionable", "possible", or "still to be ruled out" are acceptable. IF IN AGREEMENT, YOU MUST DOCUMENT ABOVE DIAGNOSTIC STATEMENT IN DAILY PROGRESS NOTES AND DISCHARGE SUMMARY. This document is not part of the patient's record. Thank You, Laurie Hyatt, RN [phone]
--- NOTE | 2016-07-24 14:27 | ECHOCARDIOGRAM REPORT ---
*NOTICE TO RECEIVING [employer] This information is strictly Confidential and protected under [place] law. [place] law prohibits you from making any further disclosure of this information unless further disclosure is expressly permitted by the written consent of the person to whom it pertains or is authorized by law. A general authorization for the release of medical or other information is not sufficient for this purpose. Hospital accepts no responsibility if the information is made available to any other person, INCLUDING THE PATIENT. Interpretation Summary * Name: CARL HERRERA Study Date: 07/23/2016 02:10 PM BP: 97/61 mmHg * Patient Location: [facility]\S\N278\S\2 HR: 64 * : 1935 (M/d/yyy) Gender: Female Height: 63 in * Age: 81 yrs Ethnicity: CA Weight: 230 lb * Ordering Physician: Mynor Moreno * Referring Physician: Self, Referred * Performed By: Cynthia Goodson RCS * * Reason For Study: CARDIOMEGALY * BSA: 2.1 m2 * The study was technically limited. * Compared to prior study, changes are noted. * -- Conclusions -- * Left ventricular systolic function is normal. * Ejection Fraction = 60-65%. * Grade I diastolic dysfunction, (abnormal relaxation pattern). * There is trace tricuspid regurgitation. * The estimated systolic PAP is 48mmHg. Procedure Details * A complete two-dimensional transthoracic echocardiogram was performed (2D, M-mode, Doppler and color flow Doppler). * A contrast injection of Definity was performed to improve assessment of LV function. * Contrast was injected into an intravenous site in the left arm. * One vial of Definity ultrasound contrast was diluted in normal saline to a total volume of 10 ml. A total of '2' ml of solution was administered during imaging. * Lot # [id number] of Definity utilized for procedure. * Expiration date JUN 14. * The attending nurse who injected the contrast agent was MERVAT SOUSA CPL, RN. Left Ventricle * The left ventricle is normal in size. * There is normal left ventricular wall thickness. * Left ventricular systolic function is normal. * Ejection Fraction = 60-65%. * No regional wall motion abnormalities noted. Right Ventricle * The right ventricular cavity size is normal (basal dimension <4.2 cm in right ventricular apical 4-chamber view). * The right ventricular systolic function is normal as assessed by tricuspid annular plane systolic excursion (TAPSE) (normal >1.5 cm). Atria * The left atrial size is normal. * Right atrial size is normal. * There is no evidence of atrial septal defect, but resolution does not allow assessment for a patent foramen ovale. Mitral Valve * The mitral valve leaflets appear thickened, but open well. * There is no mitral valve stenosis. * Significant mitral regurgitation is absent. Tricuspid Valve * The tricuspid valve is normal. * There is no tricuspid stenosis. * There is trace tricuspid regurgitation. * The estimated systolic PAP is 48mmHg. Aortic Valve * The aortic valve is not well visualized. * Aortic stenosis is absent. * There is no significant aortic regurgitation. Pulmonic Valve * The pulmonary valve is inadequately visualized, but the Doppler data is adequate for interpretation. * There is no pulmonic valvular stenosis. * Trace pulmonic valvular regurgitation. Great Vessels * The aortic root and proximal ascending aorta are normal sized. Pericardium/Pleural * There is no pericardial effusion. Great Vessels * IVC not well visualized. Left Ventricular Diastolic Function * Grade I diastolic dysfunction, (abnormal relaxation pattern). MMode 2D Measurements and Calculations IVSd 1.2 cm IVSs 1.6 cm LVIDd 4.8 cm LVIDs 3.3 cm LVPWd 1.2 cm LVPWs 1.5 cm IVS/LVPW 1.0 FS 30.7 % EDV(Teich) 106.4 ml ESV(Teich) 44.4 ml EF(Teich) 58.2 % EDV(cubed) 109.1 ml ESV(cubed) 36.2 ml EF(cubed) 66.8 % % IVS thick 36.4 % % LVPW thick 25.6 % LV mass(C)d 213.1 grams LV mass(C)dI 103.8 grams/m\S\2 LV mass(C)s 189.7 grams LV mass(C)sI 92.4 grams/m\S\2 SV(Teich) 61.9 ml SI(Teich) 30.2 ml/m\S\2 SV(cubed) 72.8 ml SI(cubed) 35.5 ml/m\S\2 Ao root diam 3.4 cm Ao root area 8.9 cm\S\2 LA dimension 3.0 cm LA/Ao 0.90 LVOT diam 1.9 cm LVOT area 2.8 cm\S\2 LVAd ap4 28.7 cm\S\2 LVLd ap4 7.7 cm EDV(MOD-sp4) 87.2 ml EDV(sp4-el) 91.4 ml LVAs ap4 19.4 cm\S\2 LVLs ap4 6.9 cm ESV(MOD-sp4) 47.0 ml ESV(sp4-el) 46.5 ml EF(MOD-sp4) 46.1 % EF(sp4-el) 49.1 % LVAd ap2 23.2 cm\S\2 LVLd ap2 7.2 cm EDV(MOD-sp2) 61.1 ml EDV(sp2-el) 63.4 ml LVAs ap2 15.7 cm\S\2 LVLs ap2 6.7 cm ESV(MOD-sp2) 33.2 ml ESV(sp2-el) 31.4 ml EF(MOD-sp2) 45.7 % EF(sp2-el) 50.4 % LVLd %diff -6.65 % EDV(MOD-bp) 75.8 ml LVLs %diff -3.17 % ESV(MOD-bp) 39.8 ml EF(MOD-bp) 47.4 % SV(MOD-sp4) 40.2 ml SI(MOD-sp4) 19.6 ml/m\S\2 SV(MOD-sp2) 27.9 ml SI(MOD-sp2) 13.6 ml/m\S\2 SV(MOD-bp) 35.9 ml SI(MOD-bp) 17.5 ml/m\S\2 SV(sp4-el) 44.9 ml SI(sp4-el) 21.9 ml/m\S\2 SV(sp2-el) 32.0 ml SI(sp2-el) 15.6 ml/m\S\2 Doppler Measurements and Calculations MV E max saundra 58.2 cm/sec MV A max saundra 86.9 cm/sec MV E/A 0.67 MV P1/2t max saundra 91.6 cm/sec MV P1/2t 106.2 msec MVA(P1/2t) 2.1 cm\S\2 MV dec slope 252.6 cm/sec\S\2 MV dec time 0.20 sec Ao V2 max 120.1 cm/sec Ao max PG 5.8 mmHg Ao max PG (full) 1.7 mmHg ALONSO(V,A) 2.4 cm\S\2 ALONSO(V,D) 2.4 cm\S\2 LV V1 max PG 4.1 mmHg LV V1 max 100.7 cm/sec PA V2 max 98.9 cm/sec PA max PG 3.9 mmHg TR max saundra 336.6 cm/sec
[2016-07-24] MEDS: TRAZODONE HCL 50 MG TAB PO SCH ×2 (15:28→21:51)
--- NOTE | 2016-07-24 15:30 | Neurology Progress Notes ---
Neurology Progress Note Date of Service Jul 24, 2016. Brenda Cortez is a 81 year old female who has a PMH hypothyroid, depression, PE/DVT , memory loss, asthma. She is a and lives at [facility]. She states she has visiting nursing to help with medications but she takes them herself and not sure if she is taking them right. she is still on apixaban. She states she has had problems with memory, unsteady gain, and depression since that hospitalization for her PE. Unclear why she was started on donepezil and memantine. She denies falls, SOB, CP, one side weakness, numbness, tingling, N, V. She states she doesn't do anything anymore. She did read alot but her glasses need changed and she doesn't have the money to get a new pair. she knows she doesn't eat well because she doesn't cook anymore. Objective Date Time Temp Pulse Resp B/P Pulse Ox O2 Delivery O2 Flow Rate FiO2 07/24/16 15:10 36.7 84 18 103/62 94 Room Air 07/24/16 12:00 94 Room Air 07/24/16 11:34 36.6 70 18 114/64 97 Room Air 07/24/16 10:59 65 96 07/24/16 08:00 93 Room Air 07/24/16 07:09 36.7 78 20 141/84 93 Room Air 07/24/16 04:00 91 Room Air 07/24/16 04:00 36.7 70 18 133/87 91 Room Air 07/24/16 00:00 92 Room Air 07/23/16 23:19 36.9 60 20 120/56 92 Room Air 07/23/16 20:00 Room Air 07/23/16 19:59 36.7 57 20 109/64 95 Room Air 07/23/16 16:00 Room Air Last 24 Hours Test 07/23/16 18:45 07/24/16 07:51 Urine Color YELLOW Urine Appearance CLEAR Urine pH 5.0 Urine Specific [place] 1.017 Urine Protein NEG Urine Glucose (UA) NEG Urine Ketones NEG Urine Occult Blood NEG Urine Nitrite NEG Urine Bilirubin NEG Urine Urobilinogen NEG Urine Leukocyte Esterase SMALL Urine WBC (Auto) 10-30 /hpf Urine RBC (Auto) 0-4 /hpf Urine Hyaline Casts (Auto) 1-5 /lpf Urine Epithelial Cells (Auto) >30 /lpf Urine Bacteria (Auto) NEG Sodium Level 142 mmol/L Potassium Level 4.3 mmol/L Chloride Level 103 mmol/L Carbon Dioxide Level 31 mmol/L Anion Gap 8.0 mmol/L Blood Urea Nitrogen 29 mg/dl Creatinine 1.80 mg/dl Est Creatinine Clear Calc Drug Dose 27.8 ml/min Estimated GFR () 29.9 Estimated GFR (Non- 25.8 BUN/Creatinine Ratio 16.1 Random Glucose 134 mg/dl Estimated Average Glucose 194 mg/dl Hemoglobin A1c 8.4 % Calcium Level 8.6 mg/dl Magnesium Level 1.8 mg/dl Imaging: TTE- Left ventricular systolic function is normal. * Ejection Fraction = 60-65%. * Grade I diastolic dysfunction, (abnormal relaxation pattern). * There is trace tricuspid regurgitation. * The estimated systolic PAP is 48mmHg. no ASD MRI brain- no acute findings Current Inpatient Medications Medications (Trade) Dose Ordered Sig/Conor Route Start Time Stop Time Status Last Admin Dose Admin Acetaminophen (Tylenol Tab) 650 mg Q4H PRN PO 07/23/16 02:30 08/22/16 02:29 Albuterol (Ventolin Hfa Inhaler) 2 puffs QID PRN INH 07/23/16 06:45 08/22/16 06:44 Apixaban (Eliquis Tab) 2.5 mg BID PO 07/23/16 09:00 08/22/16 08:59 07/24/16 09:46 2.5 MG Donepezil HCl (Aricept Tab) 10 mg HS PO 07/23/16 21:00 08/22/16 20:59 07/23/16 20:52 10 MG Fluoxetine HCl (Prozac Cap) 60 mg QAM PO 07/23/16 09:00 08/22/16 08:59 07/24/16 09:46 60 MG Levothyroxine Sodium (Synthroid Tab) 88 mcg DAILYBB PO 07/24/16 06:30 08/23/16 06:29 07/24/16 06:48 88 MCG Losartan Potassium (coZAAR TAB) 100 mg QAM PO 07/23/16 09:00 08/22/16 08:59 Future Hold 07/23/16 08:38 100 MG Memantine (Namenda Tab) 10 mg BID PO 07/23/16 09:00 08/22/16 08:59 07/24/16 09:45 10 MG Multivitamins/ Minerals (Multivitamin W/ Minerals Tab) 1 tab DAILY PO 07/23/16 09:00 08/22/16 08:59 07/24/16 09:45 1 TAB Simvastatin (Zocor Tab) 20 mg HS PO 07/23/16 21:00 08/22/16 20:59 07/23/16 20:50 20 MG Trazodone HCl (Desyrel Tab) 50 mg BID@1700,2100 PO 07/23/16 17:00 08/22/16 16:59 07/23/16 20:43 50 MG Al Hydrox/Mg Hydrox/Simethicone (Maalox Max Susp) 15 ml QID PRN PO 07/23/16 06:45 08/22/16 06:44 Nebivolol (Bystolic Tab) 5 mg HS PO 07/23/16 21:00 08/22/16 20:59 Future Hold Budesonide/ Formoterol Fumarate (Symbicort 80/ 4.5 Inh) 2 puffs BID PRN INH 07/23/16 12:15 08/22/16 12:14 Impression 81 year old female with progressive ataxia and memory issues Plan 1. PT/OT for discharge needs 2. chronic renal disease and lyte replacement 3. unclear when trazadone was started 4. may need higher level of care 5. not eating and drinking well -nutrition consult 6. as out patient neuropsych consult may be helpful to sort out if this is dementia issues or depression 7. psychiatry while in hospital- for medication adjustments for depression 8. would recommend stopping Namenda and Aricept taper of Namenda over 5-6 days to see if some of patient symptoms are medication related 9. will be available for further questions concerns Can see her back in our clinic after discharge from rehab to further evaluate for dementia and medication adjustments or restart if stopped. primary team to discuss the medications with family for their input. I agree with the above the clinical history is difficult to obtain and the patient's demeanor and conversation lead me to suspect a very large component of depression with some pseudodementia and we would be happy to see her in follow up as above outlined Family and patient [facility] and if so referral to the [facility] affiliated Neurology may be geographically more acceptable At this point we will sign off as there are not acute neurological issues that need addressed on an inpatient basis Mynor Soto MD I have seen and discussed above patient with Dr Mynor Soto, neurology Seeabove note Mynor Soto MD
--- NOTE | 2016-07-24 19:24 | Progress Note ---
Medicine Progress Note Date & Time of Visit: Jul 24, 2016 at 19:02. Subjective Patient seen and examined. Patient still feeling depressed today. Objective Last 8 Hrs Date Time Temp Pulse Resp B/P Pulse Ox O2 Delivery O2 Flow Rate FiO2 07/24/16 15:10 36.7 84 18 103/62 94 Room Air 07/24/16 12:00 94 Room Air 07/24/16 11:34 36.6 70 18 114/64 97 Room Air Physical Exam: General-awake; alert; NAD; sitting in chair Eyes-EOMI; no scleral icterus Neck-no stridor; trachea midline Lungs-CTA bilaterally; no wheezes/crackles Heart-RRR; no m/r/g Abdomen-soft; NTND; nBS Extremities-no c/c/e; no deformity Neuro-no gross focal deficits Laboratory Results: Last 24 Hours Test 07/24/16 07:51 Sodium Level 142 mmol/L Potassium Level 4.3 mmol/L Chloride Level 103 mmol/L Carbon Dioxide Level 31 mmol/L Anion Gap 8.0 mmol/L Blood Urea Nitrogen 29 mg/dl Creatinine 1.80 mg/dl Est Creatinine Clear Calc Drug Dose 27.8 ml/min Estimated GFR () 29.9 Estimated GFR (Non- 25.8 BUN/Creatinine Ratio 16.1 Random Glucose 134 mg/dl Estimated Average Glucose 194 mg/dl Hemoglobin A1c 8.4 % Calcium Level 8.6 mg/dl Magnesium Level 1.8 mg/dl Assessment & Plan ALTERED MENTAL STATUS / ATAXIA Patient presented with worsening confusion and worsening generalized weakness / ataxia (present for more than 1 year, but acutely worse). BP was significantly elevated on admission. Head CT negative for bleed or other apparent acute event. Altered mental status may have been due to missing her meds or possibly due to elevated BP. MRI brain with moderate small vessel disease. Neurology consulted. Discontinue Donepezil and wean memantine given no clear diagnosis of dementia; patient may have pseudodementia from depression and may be experiencing more side effects than benefit from these medications. PT / OT evals. Recommending rehab. HYPERTENSION BP 200/110 at home. Received losartan. Will hold losartan and nebivolol for now due to low-normal blood pressures and relative bradycardia. Currently normotensive. BRADYCARDIA On nebivolol for hypertension. On hold. TSH normal. HYPOXIA / SPRAGUE Family has noted SPRAGUE. History of asthma, but appears to be stable. O2 sats noted to be in the 80's with ambulation in ED. Acute PE unlikely in light of chronic anticoagulation. Chest x-ray shows cardiomegaly. EKG - ? old septal infarct. Echo with diastolic dysfunction. Two step prior to discharge. Nocturnal oxygen saturation ordered. Patient's daughter notes that patient used to wear oxygen at nighttime. DEPRESSION Continue fluoxetine and trazodone. Psychiatry consulted. HISTORY PULMONARY EMBOLISM + DVT Continue apixaban. ASTHMA Uses Symbicort and albuterol PRN. Try Symbicort as scheduled med. Consider outpatient PFT's. HYPOMAGNESEMIA - resolved Replaced and resolved. MICROSCOPIC HEMATURIA - resolved UA with microscopic hematuria on admission. Repeat without hematuria. Patient asymptomatic. CKD III - stable Serum creatinine at recent baseline of ~ 1.6 - 1.9. DM TYPE 2 Diet controlled. hemoglobin A1C 8.4. HYPOTHYROIDISM TSH normal. Continue levothyroxine. DYSLIPIDEMIA Continue simvastatin. MEMORY DEFICITS Patient has been experiencing memory difficulties since her PE in 2014. CT demonstrates small vessel ischemic changes- may have vascular dementia. Mother had history of apparent Alzheimer's disease. ? pseudodementia due to depression. TSH normal on levothyroxine. Vitamin B12 normal. Discontinue donepezil and memantine as above. Consulted Neuro. 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 Continue apixaban. Consultants: Neurology Psychiatry Procedures: CT head No acute intracranial findings. MRI brain 1. No acute intracranial findings. 2. Moderate small vessel disease. TTE * Left ventricular systolic function is normal. * Ejection Fraction = 60-65%. * Grade I diastolic dysfunction, (abnormal relaxation pattern). * There is trace tricuspid regurgitation. * The estimated systolic PAP is 48mmHg. Current Inpatient Medications: Current Inpatient Medications Medications (Trade) Dose Ordered Sig/Conor Route Start Time Stop Time Status Last Admin Dose Admin Acetaminophen (Tylenol Tab) 650 mg Q4H PRN PO 07/23/16 02:30 08/22/16 02:29 Albuterol (Ventolin Hfa Inhaler) 2 puffs QID PRN INH 07/23/16 06:45 08/22/16 06:44 Apixaban (Eliquis Tab) 2.5 mg BID PO 07/23/16 09:00 08/22/16 08:59 07/24/16 09:46 2.5 MG Donepezil HCl (Aricept Tab) 10 mg HS PO 07/23/16 21:00 08/22/16 20:59 07/23/16 20:52 10 MG Fluoxetine HCl (Prozac Cap) 60 mg QAM PO 07/23/16 09:00 08/22/16 08:59 07/24/16 09:46 60 MG Levothyroxine Sodium (Synthroid Tab) 88 mcg DAILYBB PO 07/24/16 06:30 08/23/16 06:29 07/24/16 06:48 88 MCG Losartan Potassium (coZAAR TAB) 100 mg QAM PO 07/23/16 09:00 08/22/16 08:59 Future Hold 07/23/16 08:38 100 MG Memantine (Namenda Tab) 10 mg BID PO 07/23/16 09:00 08/22/16 08:59 07/24/16 09:45 10 MG Multivitamins/ Minerals (Multivitamin W/ Minerals Tab) 1 tab DAILY PO 07/23/16 09:00 08/22/16 08:59 07/24/16 09:45 1 TAB Simvastatin (Zocor Tab) 20 mg HS PO 07/23/16 21:00 08/22/16 20:59 07/23/16 20:50 20 MG Trazodone HCl (Desyrel Tab) 50 mg BID@1700,2100 PO 07/23/16 17:00 08/22/16 16:59 07/24/16 15:28 50 MG Al Hydrox/Mg Hydrox/Simethicone (Maalox Max Susp) 15 ml QID PRN PO 07/23/16 06:45 08/22/16 06:44 Nebivolol (Bystolic Tab) 5 mg HS PO 07/23/16 21:00 08/22/16 20:59 Future Hold Budesonide/ Formoterol Fumarate (Symbicort 80/ 4.5 Inh) 2 puffs BID PRN INH 07/23/16 12:15 08/22/16 12:14
[2016-07-24] MEDS: SIMVASTATIN 20 MG TAB PO SCH (21:51)
[2016-07-25] VITALS: O2SAT 92
[2016-07-25 02:55] VITALS: BP 102/55; PULSE 60; TEMP 36.6; O2SAT 93
[2016-07-25 04:00] VITALS: O2SAT 93
[2016-07-25] MEDS: LEVOTHYROXINE 88 MCG TAB PO SCH (05:27)
[2016-07-25 06:58] VITALS: BP 120/72; PULSE 55; TEMP 36.8; O2SAT 93
[2016-07-25] MEDS: CEROVITE ADV FORMULA TAB PO SCH (08:20)
[2016-07-25] MEDS: APIXABAN 2.5 MG TAB PO SCH ×2 (08:21→20:37)
[2016-07-25] MEDS: MEMANTINE 10 MG TAB PO SCH (08:21)
[2016-07-25] MEDS: FLUOXETINE HCL 20 MG CAP PO SCH (08:21)
--- NOTE | 2016-07-25 10:44 | Psychiatric Progress Notes ---
Psychiatric Progress Note Date of Service Jul 25, 2016. Notes ID: Patient reviewed with liaison nurse. Initial consult by Dr. Weir on 07/23, recommended obtaining records to confirm how long on current dose Prozac CC: "I wasn't taking care of myself", seen with granddaughter at bedside HPI: patient states she is physically feeling much better, seems somewhat preoccupied with gaining weight, thankful for her care at [facility]. Records reveal Prozac increased to 60 mg earlier this month ROS: sleep fine, ate breakfast well per her report MSE: alert, cooperative, well groomed sitting in chair, thoughts organized, no SI/HI/lieberman Imp: depression and dementia as per initial consult Plan: agree psychiatrically stable to appropriate level of nursing care would continue Prozac current dose for at least another 2 weeks before considering switch to lexapro or augmentation strategy.
[2016-07-25 15:02] VITALS: BP 118/53; PULSE 75; TEMP 36.9; O2SAT 95
--- NOTE | 2016-07-25 17:31 | Progress Note ---
Medicine Progress Note Date & Time of Visit: Jul 25, 2016 at 17:15. Subjective Patient seen and examined. Family present at bedside and updated. Patient is without complaints. Objective Last 8 Hrs Date Time Temp Pulse Resp B/P Pulse Ox O2 Delivery O2 Flow Rate FiO2 07/25/16 16:17 Room Air 07/25/16 15:02 36.9 75 20 118/53 95 Room Air Physical Exam: General-awake; alert; NAD; sitting in chair Eyes-EOMI; no scleral icterus Neck-no stridor; trachea midline Lungs-CTA bilaterally; no wheezes/crackles Heart-RRR; no m/r/g Abdomen-soft; NTND; nBS Extremities-no c/c/e; no deformity Neuro-no gross focal deficits Assessment & Plan ALTERED MENTAL STATUS / ATAXIA Patient presented with worsening confusion and worsening generalized weakness / ataxia (present for more than 1 year, but acutely worse). BP was significantly elevated on admission. Head CT negative for bleed or other apparent acute event. Altered mental status may have been due to missing her meds or possibly due to elevated BP. MRI brain with moderate small vessel disease. Neurology consulted. Discontinued Donepezil and wean memantine given no clear diagnosis of dementia; patient may have pseudodementia from depression and may be experiencing more side effects than benefit from these medications. PT / OT evals. Recommending rehab. HYPERTENSION BP 200/110 at home. Received losartan. Will hold losartan and nebivolol for now due to low-normal blood pressures and relative bradycardia. Currently normotensive. BRADYCARDIA On nebivolol for hypertension. On hold. TSH normal. Resolved. HYPOXIA / SPRAGUE Family has noted SPRAGUE. History of asthma, but appears to be stable. O2 sats noted to be in the 80's with ambulation in ED. Acute PE unlikely in light of chronic anticoagulation. Chest x-ray shows cardiomegaly. EKG - ? old septal infarct. Echo with diastolic dysfunction. Two step prior to discharge. Nocturnal oxygen saturation ordered - patient requires nighttime oxygen. DEPRESSION Continue fluoxetine and trazodone. Psychiatry consulted. Fluoxetine dose was increased earlier this month from 20mg to 60mg; therefore no additional changes to be made to medication regimen at this time. HISTORY PULMONARY EMBOLISM + DVT Continue apixaban. ASTHMA Uses Symbicort and albuterol PRN. Consider outpatient PFT's. HYPOMAGNESEMIA - resolved Replaced and resolved. MICROSCOPIC HEMATURIA - resolved UA with microscopic hematuria on admission. Repeat without hematuria. Patient asymptomatic. CKD III - stable Serum creatinine at recent baseline of ~ 1.6 - 1.9. DM TYPE 2 Hemoglobin A1C 8.4. Start low dose glimepiride. HYPOTHYROIDISM TSH normal. Continue levothyroxine. DYSLIPIDEMIA Continue simvastatin. MEMORY DEFICITS Patient has been experiencing memory difficulties since her PE in 2014. CT demonstrates small vessel ischemic changes- may have vascular dementia. Mother had history of apparent Alzheimer's disease. Possible pseudodementia due to depression. TSH normal on levothyroxine. Vitamin B12 normal. Discontinue donepezil and memantine as above. Consulted Neuro. 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 Continue apixaban. Consultants: Neurology Psychiatry Procedures: CT head No acute intracranial findings. MRI brain 1. No acute intracranial findings. 2. Moderate small vessel disease. TTE * Left ventricular systolic function is normal. * Ejection Fraction = 60-65%. * Grade I diastolic dysfunction, (abnormal relaxation pattern). * There is trace tricuspid regurgitation. * The estimated systolic PAP is 48mmHg. Current Inpatient Medications: Current Inpatient Medications Medications (Trade) Dose Ordered Sig/Conor Route Start Time Stop Time Status Last Admin Dose Admin Acetaminophen (Tylenol Tab) 650 mg Q4H PRN PO 07/23/16 02:30 08/22/16 02:29 Albuterol (Ventolin Hfa Inhaler) 2 puffs QID PRN INH 07/23/16 06:45 08/22/16 06:44 Apixaban (Eliquis Tab) 2.5 mg BID PO 07/23/16 09:00 08/22/16 08:59 07/25/16 08:21 2.5 MG Fluoxetine HCl (Prozac Cap) 60 mg QAM PO 07/23/16 09:00 08/22/16 08:59 07/25/16 08:21 60 MG Levothyroxine Sodium (Synthroid Tab) 88 mcg DAILYBB PO 07/24/16 06:30 08/23/16 06:29 07/25/16 05:27 88 MCG Losartan Potassium (coZAAR TAB) 100 mg QAM PO 07/23/16 09:00 08/22/16 08:59 Future Hold 07/23/16 08:38 100 MG Multivitamins/ Minerals (Multivitamin W/ Minerals Tab) 1 tab DAILY PO 07/23/16 09:00 08/22/16 08:59 07/25/16 08:20 1 TAB Simvastatin (Zocor Tab) 20 mg HS PO 07/23/16 21:00 08/22/16 20:59 07/24/16 21:51 20 MG Trazodone HCl (Desyrel Tab) 50 mg BID@1700,2100 PO 07/23/16 17:00 08/22/16 16:59 07/24/16 21:51 50 MG Al Hydrox/Mg Hydrox/Simethicone (Maalox Max Susp) 15 ml QID PRN PO 07/23/16 06:45 08/22/16 06:44 Nebivolol (Bystolic Tab) 5 mg HS PO 07/23/16 21:00 08/22/16 20:59 Future Hold Budesonide/ Formoterol Fumarate (Symbicort 80/ 4.5 Inh) 2 puffs BID PRN INH 07/23/16 12:15 08/22/16 12:14 Memantine (Namenda Tab) 10 mg DAILY PO 07/25/16 09:00 08/24/16 08:59 07/25/16 08:21 10 MG
[2016-07-25] MEDS: SIMVASTATIN 20 MG TAB PO SCH (20:37)
[2016-07-25] MEDS ORDERED: TRAZODONE HCL 50 MG TAB PO PRN (21:00)
[2016-07-25 23:52] VITALS: BP 121/76; PULSE 63; TEMP 36.8; O2SAT 97
[2016-07-26] VITALS (8 sets, daily range): BP systolic 93–132; BP diastolic 53–82; PULSE 61–68; TEMP 36.5–36.9; O2SAT 94–99
[2016-07-26] MEDS: LEVOTHYROXINE 88 MCG TAB PO SCH (06:00)
[2016-07-26] MEDS: MEMANTINE 10 MG TAB PO SCH (07:49)
[2016-07-26] MEDS: FLUOXETINE HCL 20 MG CAP PO SCH (07:49)
[2016-07-26] MEDS: CEROVITE ADV FORMULA TAB PO SCH (07:50)
[2016-07-26] MEDS: APIXABAN 2.5 MG TAB PO SCH ×2 (07:50→19:48)
[2016-07-26] MEDS: GLIMEPIRIDE 2 MG TAB PO SCH (07:50)
[2016-07-26] MEDS: SENNA 8.6 MG TAB PO SCH (10:30)
--- NOTE | 2016-07-26 17:17 | Progress Note ---
Medicine Progress Note Date & Time of Visit: Jul 26, 2016 at 17:15. Subjective Patient seen and examined. States that she has been having a very bad day, crying all day. Asking for something to calm her down. Objective Last 8 Hrs Date Time Temp Pulse Resp B/P Pulse Ox O2 Delivery O2 Flow Rate FiO2 07/26/16 16:00 98 Room Air 07/26/16 15:37 36.5 61 15 122/60 98 Room Air 07/26/16 09:51 98 Nasal Cannula 2.0 Physical Exam: General-awake; alert; NAD Eyes-EOMI; no scleral icterus Neck-no stridor; trachea midline Lungs-CTA bilaterally; no wheezes/crackles Heart-RRR; no m/r/g Abdomen-soft; NTND; nBS Extremities-no c/c/e; no deformity Neuro-no gross focal deficits Assessment & Plan ALTERED MENTAL STATUS / ATAXIA Patient presented with worsening confusion and worsening generalized weakness / ataxia (present for more than 1 year, but acutely worse). BP was significantly elevated on admission. Head CT negative for bleed or other apparent acute event. Altered mental status may have been due to missing her meds or possibly due to elevated BP. MRI brain with moderate small vessel disease. Neurology consulted. Discontinued Donepezil and wean memantine given no clear diagnosis of dementia; patient may have pseudodementia from depression and may be experiencing more side effects than benefit from these medications. PT / OT evals. Recommending rehab. HYPERTENSION BP 200/110 at home. Received losartan. Will hold losartan and nebivolol for now due to low-normal blood pressures and relative bradycardia. Currently normotensive. BRADYCARDIA On nebivolol for hypertension. On hold. TSH normal. Resolved. HYPOXIA / SPRAGUE Family has noted SPRAGUE. History of asthma, but appears to be stable. O2 sats noted to be in the 80's with ambulation in ED. Acute PE unlikely in light of chronic anticoagulation. Chest x-ray shows cardiomegaly. EKG - ? old septal infarct. Echo with diastolic dysfunction. Nocturnal oxygen saturation ordered - patient requires nighttime oxygen. DEPRESSION Continue fluoxetine and trazodone. Psychiatry consulted. Fluoxetine dose was increased earlier this month from 20mg to 60mg; therefore no additional changes to be made to medication regimen at this time. HISTORY PULMONARY EMBOLISM + DVT Continue apixaban. ASTHMA Uses Symbicort and albuterol PRN. Consider outpatient PFT's. HYPOMAGNESEMIA - resolved Replaced and resolved. MICROSCOPIC HEMATURIA - resolved UA with microscopic hematuria on admission. Repeat without hematuria. Patient asymptomatic. CKD III - stable Serum creatinine at recent baseline of ~ 1.6 - 1.9. DM TYPE 2 Hemoglobin A1C 8.4. Start low dose glimepiride. HYPOTHYROIDISM TSH normal. Continue levothyroxine. DYSLIPIDEMIA Continue simvastatin. MEMORY DEFICITS Patient has been experiencing memory difficulties since her PE in 2014. CT demonstrates small vessel ischemic changes- may have vascular dementia. Mother had history of apparent Alzheimer's disease. Possible pseudodementia due to depression. TSH normal on levothyroxine. Vitamin B12 normal. Discontinue donepezil and memantine as above. Consulted Neuro. 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 Continue apixaban. Dispo: Pending acceptance to [facility]. Consultants: Neurology Psychiatry Procedures: CT head No acute intracranial findings. MRI brain 1. No acute intracranial findings. 2. Moderate small vessel disease. TTE * Left ventricular systolic function is normal. * Ejection Fraction = 60-65%. * Grade I diastolic dysfunction, (abnormal relaxation pattern). * There is trace tricuspid regurgitation. * The estimated systolic PAP is 48mmHg. Current Inpatient Medications: Current Inpatient Medications Medications (Trade) Dose Ordered Sig/Conor Route Start Time Stop Time Status Last Admin Dose Admin Acetaminophen (Tylenol Tab) 650 mg Q4H PRN PO 07/23/16 02:30 08/22/16 02:29 Albuterol (Ventolin Hfa Inhaler) 2 puffs QID PRN INH 07/23/16 06:45 08/22/16 06:44 Apixaban (Eliquis Tab) 2.5 mg BID PO 07/23/16 09:00 08/22/16 08:59 07/26/16 07:50 2.5 MG Fluoxetine HCl (Prozac Cap) 60 mg QAM PO 07/23/16 09:00 08/22/16 08:59 07/26/16 07:49 60 MG Levothyroxine Sodium (Synthroid Tab) 88 mcg DAILYBB PO 07/24/16 06:30 08/23/16 06:29 07/26/16 06:00 88 MCG Losartan Potassium (coZAAR TAB) 100 mg QAM PO 07/23/16 09:00 08/22/16 08:59 Future Hold 07/23/16 08:38 100 MG Multivitamins/ Minerals (Multivitamin W/ Minerals Tab) 1 tab DAILY PO 07/23/16 09:00 08/22/16 08:59 07/26/16 07:50 1 TAB Simvastatin (Zocor Tab) 20 mg HS PO 07/23/16 21:00 08/22/16 20:59 07/25/16 20:37 20 MG Al Hydrox/Mg Hydrox/Simethicone (Maalox Max Susp) 15 ml QID PRN PO 07/23/16 06:45 08/22/16 06:44 Nebivolol (Bystolic Tab) 5 mg HS PO 07/23/16 21:00 08/22/16 20:59 Future Hold Budesonide/ Formoterol Fumarate (Symbicort 80/ 4.5 Inh) 2 puffs BID PRN INH 07/23/16 12:15 08/22/16 12:14 Memantine (Namenda Tab) 10 mg DAILY PO 07/25/16 09:00 07/28/16 23:55 07/26/16 07:49 10 MG Glimepiride (Amaryl Tab) 2 mg QAM PO 07/26/16 09:00 08/25/16 08:59 07/26/16 07:50 2 MG Trazodone HCl (Desyrel Tab) 50 mg QPM PRN PO 07/25/16 21:00 08/24/16 20:59 Senna (Senokot Tab) 8.6 mg QAM PO 07/26/16 10:30 08/25/16 10:29
[2016-07-26] MEDS: SIMVASTATIN 20 MG TAB PO SCH (19:47)
[2016-07-27] VITALS: O2SAT 98
[2016-07-27] MEDS: LEVOTHYROXINE 88 MCG TAB PO SCH (05:49)
[2016-07-27 07:25] VITALS: BP 139/66; PULSE 63; TEMP 36.6; O2SAT 93
[2016-07-27] MEDS: GLIMEPIRIDE 2 MG TAB PO SCH (07:51)
[2016-07-27] MEDS: SENNA 8.6 MG TAB PO SCH (07:51)
[2016-07-27] MEDS: APIXABAN 2.5 MG TAB PO SCH ×2 (07:52→19:22)
[2016-07-27] MEDS: MEMANTINE 10 MG TAB PO SCH (07:52)
[2016-07-27] MEDS: CEROVITE ADV FORMULA TAB PO SCH (07:52)
[2016-07-27] MEDS: FLUOXETINE HCL 20 MG CAP PO SCH (07:52)
--- NOTE | 2016-07-27 09:32 | Progress Note ---
Medicine Progress Note Date & Time of Visit: Jul 27, 2016 at 09:29. Subjective Patient seen and examined. Notes that she is having a much better day today. Objective Last 8 Hrs Date Time Temp Pulse Resp B/P Pulse Ox O2 Delivery O2 Flow Rate FiO2 07/27/16 07:25 36.6 63 18 139/66 93 Room Air Physical Exam: General-awake; alert; NAD Eyes-EOMI; no scleral icterus Neck-no stridor; trachea midline Lungs-CTA bilaterally; no wheezes/crackles Heart-RRR; no m/r/g Abdomen-soft; NTND; nBS Extremities-no c/c/e; no deformity Neuro-no gross focal deficits Laboratory Results: Last 24 Hours Test 07/26/16 17:22 07/26/16 20:16 07/27/16 07:39 Bedside Glucose 121 mg/dl 166 mg/dl 100 mg/dl Assessment & Plan ALTERED MENTAL STATUS / ATAXIA - improved Patient presented with worsening confusion and worsening generalized weakness / ataxia (present for more than 1 year, but acutely worse). BP was significantly elevated on admission. Head CT negative for bleed or other apparent acute event. MRI brain with moderate small vessel disease. Neurology consulted. Discontinued Donepezil and wean memantine given no clear diagnosis of dementia; patient may have pseudodementia from depression and may be experiencing more side effects than benefit from these medications. PT / OT evals. Recommending rehab. HYPERTENSION BP 200/110 at home. Received losartan. Hold losartan and nebivolol for now due to low-normal blood pressures. Currently normotensive. BRADYCARDIA - resolved On nebivolol for hypertension. On hold. TSH normal. Resolved. HYPOXIA / SPRAGUE - improved Family has noted SPRAGUE. History of asthma, but appears to be stable. O2 sats noted to be in the 80's with ambulation in ED. Acute PE unlikely in light of chronic anticoagulation. Chest x-ray shows cardiomegaly. EKG - ? old septal infarct. Echo with diastolic dysfunction. Appears euvolemic. Nocturnal oxygen saturation ordered - patient requires nighttime oxygen. DEPRESSION Continue fluoxetine and trazodone. Psychiatry consulted. Fluoxetine dose was increased earlier this month from 20mg to 60mg; therefore no additional changes to be made to medication regimen at this time. HISTORY PULMONARY EMBOLISM + DVT Continue apixaban. ASTHMA Uses Symbicort and albuterol PRN. Consider outpatient PFT's. HYPOMAGNESEMIA - resolved Replaced and resolved. MICROSCOPIC HEMATURIA - resolved UA with microscopic hematuria on admission. Repeat without hematuria. Patient asymptomatic. CKD III - stable Serum creatinine at recent baseline of ~ 1.6 - 1.9. DM TYPE 2 Hemoglobin A1C 8.4. Started low dose glimepiride. HYPOTHYROIDISM TSH normal. Continue levothyroxine. DYSLIPIDEMIA Continue simvastatin. MEMORY DEFICITS Patient has been experiencing memory difficulties since her PE in 2014. CT demonstrates small vessel ischemic changes- may have vascular dementia. Mother had history of apparent Alzheimer's disease. Possible pseudodementia due to depression. TSH normal on levothyroxine. Vitamin B12 normal. Discontinued donepezil and memantine as above. Consulted Neuro. 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 Continue apixaban. Dispo: Pending acceptance to [facility]. Consultants: Neurology Psychiatry Procedures: CT head No acute intracranial findings. MRI brain 1. No acute intracranial findings. 2. Moderate small vessel disease. TTE * Left ventricular systolic function is normal. * Ejection Fraction = 60-65%. * Grade I diastolic dysfunction, (abnormal relaxation pattern). * There is trace tricuspid regurgitation. * The estimated systolic PAP is 48mmHg. Current Inpatient Medications: Current Inpatient Medications Medications (Trade) Dose Ordered Sig/Conor Route Start Time Stop Time Status Last Admin Dose Admin Acetaminophen (Tylenol Tab) 650 mg Q4H PRN PO 07/23/16 02:30 08/22/16 02:29 Albuterol (Ventolin Hfa Inhaler) 2 puffs QID PRN INH 07/23/16 06:45 08/22/16 06:44 Apixaban (Eliquis Tab) 2.5 mg BID PO 07/23/16 09:00 08/22/16 08:59 07/27/16 07:52 2.5 MG Fluoxetine HCl (Prozac Cap) 60 mg QAM PO 07/23/16 09:00 08/22/16 08:59 07/27/16 07:52 60 MG Levothyroxine Sodium (Synthroid Tab) 88 mcg DAILYBB PO 07/24/16 06:30 08/23/16 06:29 07/27/16 05:49 88 MCG Losartan Potassium (coZAAR TAB) 100 mg QAM PO 07/23/16 09:00 08/22/16 08:59 Future Hold 07/23/16 08:38 100 MG Multivitamins/ Minerals (Multivitamin W/ Minerals Tab) 1 tab DAILY PO 07/23/16 09:00 08/22/16 08:59 07/27/16 07:52 1 TAB Simvastatin (Zocor Tab) 20 mg HS PO 07/23/16 21:00 08/22/16 20:59 07/26/16 19:47 20 MG Al Hydrox/Mg Hydrox/Simethicone (Maalox Max Susp) 15 ml QID PRN PO 07/23/16 06:45 08/22/16 06:44 Nebivolol (Bystolic Tab) 5 mg HS PO 07/23/16 21:00 08/22/16 20:59 Future Hold Budesonide/ Formoterol Fumarate (Symbicort 80/ 4.5 Inh) 2 puffs BID PRN INH 07/23/16 12:15 08/22/16 12:14 Memantine (Namenda Tab) 10 mg DAILY PO 07/25/16 09:00 07/28/16 23:55 07/27/16 07:52 10 MG Glimepiride (Amaryl Tab) 2 mg QAM PO 07/26/16 09:00 08/25/16 08:59 07/27/16 07:51 2 MG Trazodone HCl (Desyrel Tab) 50 mg QPM PRN PO 07/25/16 21:00 08/24/16 20:59 Senna (Senokot Tab) 8.6 mg QAM PO 07/26/16 10:30 08/25/16 10:29 07/27/16 07:51 8.6 MG
[2016-07-27 15:31] VITALS: BP 111/63; PULSE 77; TEMP 36.7; O2SAT 93
[2016-07-27] MEDS: SIMVASTATIN 20 MG TAB PO SCH (19:22)
[2016-07-27 20:00] VITALS: O2SAT 98
[2016-07-27 23:33] VITALS: BP 135/57; PULSE 63; TEMP 36.7; O2SAT 94
[2016-07-28] MEDS: LEVOTHYROXINE 88 MCG TAB PO SCH (06:08)
[2016-07-28 08:00] VITALS: O2SAT 93
[2016-07-28 08:09] VITALS: BP 101/69; PULSE 70; TEMP 36.6; O2SAT 93
[2016-07-28] MEDS: GLIMEPIRIDE 2 MG TAB PO SCH (08:10)
[2016-07-28] MEDS: CEROVITE ADV FORMULA TAB PO SCH (08:10)
[2016-07-28] MEDS: APIXABAN 2.5 MG TAB PO SCH (08:10)
[2016-07-28] MEDS: MEMANTINE 10 MG TAB PO SCH (08:10)
[2016-07-28] MEDS: FLUOXETINE HCL 20 MG CAP PO SCH (08:11)
[2016-07-28] MEDS: SENNA 8.6 MG TAB PO SCH (08:11)
--- NOTE | 2016-07-28 09:12 | Psychiatric Progress Notes ---
Psychiatric Progress Note Date of Service Jul 28, 2016. Notes ID: Patient reviewed with liaison nurse. Initial consult by Dr. Weir on 07/23, Prozac continued as only increased early Jun 2016. CC: "I have a screw loose", smiling HPI: states she felt some regression last pm, denies confusion but also tries to cover symptoms with humor, she denies anxiety stating "what do I have to worry about, I don't do anything" but clearly more emotional in evenings. ROS: slept poorly, didn't take prn. appetite improved. MSE: alert, cooperative, well groomed sitting in chair, thoughts organized, no SI/HI/lieberman Imp: depression and dementia as per initial consult Plan: patient agreeable to add Buspar 5 BID as a trial for anxiety about her condition though I suspect mild sundowning may be occurring would recommend trazodone as scheduled as patient unlikely to request as stoic. has therapy appt at [facility] per liaison
[2016-07-28 10:26] VITALS: BP 101/69; PULSE 70; TEMP 36.6; O2SAT 93
[2016-07-28] MEDS ORDERED: BSP5 PO (11:24)
[2016-07-28] MEDS ORDERED: AMR2 PO (11:24)
[2016-07-28] MEDS ORDERED: SNK PO (11:24)
--- NOTE | 2016-07-28 11:26 | Discharge Instructions ---
Discharge Instructions Admission Reason for Admission: Bradycardia, Hypoxia Discharge Discharge Diagnosis / Problem: Depression Discharge Goals Goal(s): Improve disease control Activity Recommendations Activity Limitations: resume your previous activity . Instructions / Follow-Up Instructions / Follow-Up Please follow up with Family Medicine Dr. Monsalve within one week of discharge from [facility]. Current Hospital Diet Patient's current hospital diet: AHA Diet (Heart Healthy) Discharge Diet Recommended Diet: AHA Diet (Heart Healthy), Diabetes Type 2 Diet Pending Studies Studies pending at discharge: no Laboratory Results Hemoglobin A1c Test 07/24/16 07:51 Range/Units Estimated Average Glucose 194 mg/dl Hemoglobin A1c 8.4 H 4.5-5.6 % Medical Emergencies . Who to Call and When: Medical Emergencies: If at any time you feel your situation is an emergency, please call 911 immediately. . Non-Emergent Contact Non-Emergency issues call your: Primary Care Provider . . "Provider Documentation" section prepared by Aditi Christian. VTE Core Measure Inpt VTE Proph given/why not?: Other Anticoagulation (apixaban)
[2016-07-28] MEDS ORDERED: OXGN (11:27)
[2016-07-28] MEDS ORDERED: TRAZODONE HCL 50 MG TAB PO SCH (17:00)
--- NOTE | 2016-07-28 19:31 | Discharge Summary ---
Discharge Summary Admission Date: Jul 23, 2016 at 02:32 Discharge Date: Jul 28, 2016 [facility] Principal Diagnosis: Depression Procedures: CT head No acute intracranial findings. MRI brain 1. No acute intracranial findings. 2. Moderate small vessel disease. TTE * Left ventricular systolic function is normal. * Ejection Fraction = 60-65%. * Grade I diastolic dysfunction, (abnormal relaxation pattern). * There is trace tricuspid regurgitation. * The estimated systolic PAP is 48mmHg. Consultations: Neurology Psychiatry Medication Reconciliation New Medications: Oxygen (Oxygen) Gas 2 LITERS NA nighttime for 30 Days Buspirone HCl (Buspirone HCl) 5 Mg Tab 5 MG PO BID17 for 30 Days, #60 TAB Glimepiride (Glimepiride) 2 Mg Tab 2 MG PO QAM for 30 Days, #30 TAB Senna (Senna Lax) 8.6 Mg Tab 8.6 MG PO QAM for 30 Days, #30 TAB Continued Medications: Albuterol Hfa (Ventolin Hfa) 200 Puffs/60436 Mcg Aers 2 PUFFS INH QID PRN for SOB/Wheezing, #1 INHALER Alum & Mag Hydrox-Simethicone (Mylanta) 1 Marta Marta 15 ML PO QID PRN for indigestion Apixaban (Eliquis) 2.5 Mg Tab 2.5 MG PO BID Budesonide/Formoterol Fumarate (Symbicort 80/4.5 Inhaler) Aero 2 PUFFS INH BID PRN for asthma symptoms, INHALER Fluoxetine (Prozac) 20 Mg Cap 60 MG PO QAM, CAP Levothyroxine Sodium (Levothyroxine Sodium) 88 Mcg Tab 88 MCG PO QAM for 90 Days, #90 TAB 3 Refills Ocuvite Preservision (Ocuvite Preservision) 1 Tab Tab 1 TAB PO DAILY, TAB Simvastatin (Zocor) 20 Mg Tab 20 MG PO HS, TAB Trazodone Hcl (Desyrel) 50 Mg Tab 50 MG PO UD, TAB TAKAE 1 TAB AT SUPPER AND 1 TAB AT BEDTIME Discontinued Medications: Donepezil Hydrochloride (Aricept) 10 Mg Tab 10 MG PO HS, TAB Losartan Potassium (Cozaar) 100 Mg Tab 100 MG PO QAM, TAB Memantine (Namenda) 10 Mg Tab 10 MG PO BID, TAB Nebivolol HCl (Bystolic) 5 Mg Tab 5 MG PO HS Admission Information HPI (per Admitting provider): 81 YO female followed by Dr. Monsalve. History of hypertension, pulmonary embolism, and other problems noted below. She is a and lives by herself at [facility]. Family checks on her regularly and Home Health Nursing assists with her care. Admitted with DVT LLE + pulmonary emboli January 2015. Discharged on warfarin and eventually transitioned to apixaban which she continues to take. Has had problems with memory, unsteady gain, and depression since that hospitalization. Takes donepezil and memantine, but family doesn't feel that she has dementia. She was in her usual recent state of health until yesterday. Apparently her home health nurse had made some recommendations regarding her medication administration routine. There were no medications, but the nurse had recommended using a pill box. Her family checked on her yesterday afternoon (07/22) and found her to be confused and weaker / unsteadier than usual. No new specific focal neuro deficits. She complained of a headache. BP was noted to be 200/110. Family noted that she had not take her morning medications. Most of the above history was provided by the patient's family. She repeatedly stated that she did not feel well, but was not able to explain what symptoms she was experiencing. Family has been concerned that her appetite has declined and she has not been eating well. . Physical Exam (per Admitting): General Appearance: WD/WN, no apparent distress, + pertinent finding (upset) Head: normocephalic, atraumatic Eyes: normal inspection, PERRL, EOMI, sclerae normal, + pertinent finding ( conjunctivae pink) ENT: normal ENT inspection, hearing grossly normal, pharynx normal, + pertinent finding (upper and lower dentures) Neck: supple, no adenopathy, thyroid normal, no JVD, no carotid bruits, trachea midline Respiratory/Chest: lungs clear, normal breath sounds, no respiratory distress, no accessory muscle use Cardiovascular: regular rate, rhythm, no edema, no gallop, no JVD, no murmur , + gallop/S4 Abdomen/GI: normal bowel sounds, soft, no organomegaly, no pulsatile mass, + tenderness (?? 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 Workup was unremarkable, with the exception of depression. Neurology was consulted. 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 CT head was negative and MRI showed moderate small vessel disease. Other than an elevated blood pressure on admission, patient remained normotensive off losartan and nebivolol and thus these medications were also not continued upon discharge. Patient was also bradycardic in the 50's on admission and this resolved with cessation of nebivolol. Psychiatry was consulted for patient's depression. She was continued on fluoxetine and trazodone. Buspirone was started for anxiety. She is to follow up with mental health as an outpatient. Patient was noted to have an A1c of 8.4 and was therefore started on glimepiride during this hospitalization. Nocturnal oxygen saturation did show that patient requires oxygen at nighttime. She was continued on her home medications with the exceptions noted above. PT/OT recommended rehab upon discharge and therefore patient was discharged to [facility] in stable condition. PE on discharge: General- awake; alert; NAD Eyes- EOMI; no scleral icterus Neck- no stridor; trachea midline Lungs- CTA bilaterally; no wheezes/crackles Heart- RRR; no m/r/g Abdomen- soft; NTND; nBS Back- no gross abnormalities Extremities- no c/c/e; no deformity Neuro- no gross focal deficits Skin- no appreciable rash . Total time spent on discharge = This includes examination of the patient, discharge planning, medication reconciliation, and communication with other providers. Discharge Instructions Discharge Instructions Admission Reason for Admission: Bradycardia, Hypoxia Discharge Discharge Diagnosis / Problem: Depression Discharge Goals Goal(s): Improve disease control Activity Recommendations Activity Limitations: resume your previous activity . Instructions / Follow-Up Instructions / Follow-Up Please follow up with Family Medicine Dr. Monsalve within one week of discharge from [facility]. Current Hospital Diet Patient's current hospital diet: AHA Diet (Heart Healthy) Discharge Diet Recommended Diet: AHA Diet (Heart Healthy), Diabetes Type 2 Diet Pending Studies Studies pending at discharge: no Laboratory Results Hemoglobin A1c Test 07/24/16 07:51 Range/Units Estimated Average Glucose 194 mg/dl Hemoglobin A1c 8.4 H 4.5-5.6 % Medical Emergencies . Who to Call and When: Medical Emergencies: If at any time you feel your situation is an emergency, please call 911 immediately. . Non-Emergent Contact Non-Emergency issues call your: Primary Care Provider . . "Provider Documentation" section prepared by Aditi Christian. VTE Core Measure Inpt VTE Proph given/why not?: Other Anticoagulation (apixaban) Additional Copies To Gatito Monsalve M.D.
[2016-11-25] MEDS ORDERED: PRED10TA PO (15:32)
[2016-11-25] MEDS ORDERED: DXY100 PO (15:32)
[2016-11-25] MEDS ORDERED: RBTUDL5 PO (15:32)
== END 2016-07-28 14:13 | DRG 948 ==
LOC: ENRESERVDT → ENRESERVTM → EDBD 19:31 → C.EDB 19:32 → C.MED 07-23 02:32
PROVIDERS: ADMIT Hospitalist; ATTEND Internal Medicine
DX: R41.82 Altered mental status, unspecified (principal); Z68.41 Body mass index [BMI] 40.0-44.9, adult; G44.89 Other headache syndrome; F32.9 Major depressive disorder, single episode, unspecified; R00.1 Bradycardia, unspecified; J45.909 Unspecified asthma, uncomplicated; E66.3 Overweight; E83.42 Hypomagnesemia; E78.5 Hyperlipidemia, unspecified; E03.9 Hypothyroidism, unspecified; N18.3 Chronic kidney disease, stage 3 (moderate); F03.90 Unspecified dementia, unspecified severity, without behavioral disturbance, psychotic disturbance, mood disturbance, and anxiety; I25.2 Old myocardial infarction; R09.02 Hypoxemia; F41.9 Anxiety disorder, unspecified; R27.0 Ataxia, unspecified; R41.3 Other amnesia; R06.09 Other forms of dyspnea; I12.9 Hypertensive chronic kidney disease with stage 1 through stage 4 chronic kidney disease, or unspecified chronic kidney disease; E11.22 Type 2 diabetes mellitus with diabetic chronic kidney disease; Z86.718 Personal history of other venous thrombosis and embolism; Z23 Encounter for immunization; Z86.711 Personal history of pulmonary embolism; R63.0 Anorexia; R10.819 Abdominal tenderness, unspecified site; R53.1 Weakness; R31.29 Other microscopic hematuria; Z79.01 Long term (current) use of anticoagulants; Z79.51 Long term (current) use of inhaled steroids; Z79.899 Other long term (current) drug therapy

== ENCOUNTER 2016-11-22 12:54 | Inpatient (IN) | payer OTHER, MEDICARE ==
[~2016-11-22] VITALS: Ht 160 cm; Wt 108.3 kg
[~2016-11-22 12:54] MED LIST changes: -ALBU1AER9 INH; +AMR2 PO; +BSP5 PO; -DICL1GEL28 TOP; -DONE10TA12 PO; -FAMO1CHW PO; +FLUO20CA35 PO; -FLUO40CA8 PO; -LOSA100T65 PO; -MULT-513 PO; -NEBI10TA2 PO; +OXGN; +SNK PO; +TRAZ-119 PO; -TRAZ1TAB16 PO; +VNTHFA/IN INH
[2016-11-22] MEDS ORDERED: ALBUT/IPRATROP 3MG/0.5MG NEB 3 ML VIAL INH STA (13:46)
[2016-11-22 13:58] LABS: BASO % 0.7 %; BASO ABS # 0.05 K/uL (0-0.2); COMPLETE YES; EOS % 6.1 %; HEMATOCRIT 40.2 % (37-47); IG% 0.4 %; LYMPH ABS # 0.92 K/uL (1.2-3.4); MEAN CELL VOLUME 91.4 fL (80-100); MEAN CORPUSCULAR HEMOGLOBIN 29.1 pg (25-34); MEAN CORPUSCULAR HGB CONC 31.8 g/dl (32-36); MEAN PLATELET VOLUME 9.7 fL (7.4-10.4); MONO % 9.9 %; NEUT % 69.9 %; PLATELET COUNT 199 K/uL (130-400); WHITE BLOOD COUNT 7.07 K/uL (4.8-10.8)
[2016-11-22 14:07] LABS: BUN/CREATININE RATIO 8.5 (10-20); CALCIUM 8.8 mg/dl (8.5-10.1); CREATININE 1.6 mg/dl (0.60-1.20); POTASSIUM 4.1 mmol/L (3.5-5.1)
[2016-11-22 14:11] LABS: ALB/GLOB RATIO 0.9 (0.9-2)
--- NOTE | 2016-11-22 14:15 | DIAGNOSTIC IMAGING REPORT ---
TWO VIEW CHEST CLINICAL HISTORY: Dyspnea. Cough. FINDINGS: PA and lateral chest radiographs are compared to study dated 07/22/2016 and correlated with chest CT dated 02/23/2015. The heart is enlarged and there is atherosclerotic calcification of the thoracic aorta. The pulmonary vasculature is noncongested. Chronic interstitial thickening is unchanged. No airspace consolidation or pleural effusion is identified. There is no pneumothorax. The skeletal structures are osteopenic. The bony thorax appears intact. Degenerative change is noted in the thoracic spine and shoulders. IMPRESSION: Cardiomegaly with no acute cardiopulmonary abnormality. Electronically signed by: Stevie Smith M.D. 11/22/2016 2:13 PM Dictated Date/Time: 11/22/2016 2:12 PM
[2016-11-22] MEDS ORDERED: SODIUM CHLORIDE 0.9% 1000ML 1,000 ML IV STA (14:19)
[2016-11-22] MEDS ORDERED: OPTIRAY 320 IV PRN (14:30)
--- NOTE | 2016-11-22 15:06 | DIAGNOSTIC IMAGING REPORT ---
CT ANGIOGRAM OF THE CHEST CLINICAL HISTORY: Dyspnea. COMPARISON STUDY: Chest x-ray dated 11/22/2016. Chest CT dated 02/23/2015. TECHNIQUE: Following the IV administration of 83 cc of Optiray 320, CT angiogram of the chest was performed from the upper abdomen to the thoracic inlet utilizing the pulmonary embolus protocol. Images are reviewed in the axial, sagittal, and coronal planes. 3-D MIPS images are created and assessed. IV contrast was administered without complication. CT DOSE: 532.15 mGy.cm FINDINGS: Thyroid: Atrophic versus surgically absent. Thoracic aorta: There is atherosclerotic calcification of the thoracic aorta, which is normal in caliber and demonstrates standard 3-vessel arch anatomy. No dissection is seen. Pulmonary vasculature: The main pulmonary arteries are mildly dilated suggesting pulmonary artery hypertension. There are no filling defects identified in main, lobar, or segmental pulmonary branches to suggest pulmonary embolus. Heart: The heart is top normal in size and without pericardial effusion. Lungs and pleural spaces: Evaluation of the lung parenchyma is modestly degraded by motion artifact. No airspace consolidation or pleural effusion is identified. There is dependent atelectasis. The trachea and central airways are clear. Mediastinum: There is no mediastinal lymphadenopathy. Nadia: Clear. Axillae: There is no axillary lymphadenopathy. Upper abdomen: There is a tiny hiatal hernia. Partially visualized upper abdominal viscera is otherwise within normal limits. Skeletal structures: The skeletal structures are osteopenic. Mild degenerative change is noted throughout the thoracic spine. No lytic or blastic bony lesions are seen. IMPRESSION: 1. There is no evidence of pulmonary embolus in the main, lobar, or segmental pulmonary arteries. 2. There is no airspace consolidation or pleural effusion. Electronically signed by: Stevie Smith M.D. 11/22/2016 3:05 PM Dictated Date/Time: 11/22/2016 2:58 PM
--- NOTE | 2016-11-22 16:20 | EMERGENCY ROOM VISIT NOTE ---
History Report prepared by Phillip: Antonio Snell Under the Supervision of: Dr. Claudia Escobedo D.O. First contact with patient: 13:03 Stated Complaint: RESPIRATORY DIFFICULTY History of Present Illness The patient is an 81 year old female who presents to the Emergency Room with complaints of constant shortness of breath beginning two days ago. The patient states that she has a productive cough and has lost energy. She reports that when she starts coughing, she cannot stop. The patient states the cannot move without her symptoms increasing. She reports that she was on a nebulizer but was taken off it. She denies having chills. The patient's daughter states the physical therapist read the patient's Pulsox, and it was too low for the patient to complete her therapy. She reports that when she was around the patient she could hear the patient wheezing. The daughter states that she called the patient's PCP and was told to give her Robitussin and Vicks. She reports that before calling the ambulance, the patient had a low-grade fever of 98.4. The daughter states that the patient took her medications this morning. She reports that the patient has a history of pneumonia and blood clots. The patient reports that she has never smoked. The daughter also notes that the patient has a history of depression and went to rehab. She states that she believes the patient's symptoms have improved. Source of History: patient, family Onset: 2 days ago Position: other (global) Quality: other (shortness of breath) Timing: constant Modifying Factors (Worsening): movement Associated Symptoms: + cough (productive), + fevers, No chills Review of Systems See HPI for pertinent positives & negatives. A total of 10 systems reviewed and were otherwise negative. Past Medical & Surgical Medical Problems: (1) Asthma (2) Asthma exacerbation (3) Ataxia (4) Bronchitis (5) CKD (chronic kidney disease), stage III (6) Depression (7) Dyslipidemia (8) History of DVT (deep vein thrombosis) (9) History of pulmonary embolism (10) Hypertension (11) Hypothyroidism (12) Memory loss (13) Pneumonia (14) Type 2 diabetes mellitus Surgical Problems: (1) Status post appendectomy (2) Status post tonsillectomy Family History Alzheimer's disease MOTHER Family history black lung FATHER Social History Smoking Status: Never Smoker Alcohol Use: none Drug Use: none Marital Status: Housing Status: lives alone Occupation Status: retired Current/Historical Medications Scheduled Apixaban (Eliquis), 2.5 MG PO BID Buspirone HCl (Buspirone HCl), 5 MG PO BID17 Fluoxetine (Prozac), 60 MG PO QAM Folic Acid (Folic Acid), 1 MG PO UD Glimepiride (Glimepiride), 2 MG PO QAM Levothyroxine Sodium (Levothyroxine Sodium), 88 MCG PO QAM Ocuvite Preservision (Ocuvite Preservision), 1 TAB PO DAILY Senna (Senna Lax), 8.6 MG PO QAM Simvastatin (Zocor), 20 MG PO HS Trazodone Hcl (Desyrel), 50 MG PO UD Scheduled PRN Albuterol (Ventolin Hfa), 2 PUFFS INH QID PRN for SOB/Wheezing Budesonide/Formoterol Fumarate (Symbicort 80/4.5 Inhaler), 2 PUFFS INH BID PRN for SOB/Wheezing Allergies Coded Allergies: Codeine (Verified Allergy, Unknown, unk, 11/22/16) Fluticasone (Verified Allergy, Unknown, unk, 11/22/16) Macrolides and Ketolides (Verified Allergy, Unknown, PT UNSURE, 11/22/16) Salmeterol (Verified Allergy, Unknown, unk, 11/22/16) Sulfa Antibiotics (Verified Allergy, Unknown, PT UNSURE, 11/22/16) Troleandomycin (Verified Allergy, Unknown, unk, 11/22/16) Physical Exam Vital Signs Date Time Temp Pulse Resp B/P Pulse Ox O2 Delivery O2 Flow Rate FiO2 11/22/16 16:34 96 Nasal Cannula 2.0 11/22/16 15:34 81 24 120/76 96 Nasal Cannula 2.0 11/22/16 15:33 89 Room Air 11/22/16 14:05 92 16 131/57 97 Room Air 11/22/16 13:15 95 Room Air 11/22/16 13:07 37.4 91 23 140/73 92 Room Air 11/22/16 13:07 92 Room Air Physical Exam GENERAL: alert, well appearing, well nourished, no distress, non-toxic EYE EXAM: normal conjunctiva, PERRL and EOM's grossly intact OROPHARYNX: no exudate, no erythema, lips, buccal mucosa, and tongue normal and mucous membranes are moist NECK: supple, no nuchal rigidity, no adenopathy, non-tender LUNGS: Normal chest wall mechanics. Slight bilateral expository wheezing, no strider. HEART: no murmurs, S1 normal and S2 normal ABDOMEN: abdomen soft, non-tender, normo-active bowel sounds, no masses, no rebound or guarding. BACK: Back is symmetrical on inspection and there is no deformity, no midline tenderness, no CVA tenderness. SKIN: no rashes and no bruising UPPER EXTREMITIES: upper extremities are grossly normal. LOWER EXTREMITIES: No pitting edema. NEURO EXAM: Normal sensorium, cranial nerves II-XII [grossly] intact, normal speech, no [gross] weakness of arms, no [gross] weakness of legs. [No drift. Finger to nose intact. Gross sensation intact.] Medical Decision & Procedures ER Provider Diagnostic Interpretation: Radiology results have been interpreted by the radiologist and reviewed by me. TWO VIEW CHEST CLINICAL HISTORY: Dyspnea. Cough. FINDINGS: PA and lateral chest radiographs are compared to study dated 07/22/2016 and correlated with chest CT dated 02/23/2015. The heart is enlarged and there is atherosclerotic calcification of the thoracic aorta. The pulmonary vasculature is noncongested. Chronic interstitial thickening is unchanged. No airspace consolidation or pleural effusion is identified. There is no pneumothorax. The skeletal structures are osteopenic. The bony thorax appears intact. Degenerative change is noted in the thoracic spine and shoulders. IMPRESSION: Cardiomegaly with no acute cardiopulmonary abnormality. Electronically signed by: Stevie Smith M.D. 11/22/2016 2:13 PM Dictated Date/Time: 11/22/2016 2:[address] ANGIOGRAM OF THE CHEST CLINICAL HISTORY: Dyspnea. COMPARISON STUDY: Chest x-ray dated 11/22/2016. Chest CT dated 02/23/2015. TECHNIQUE: Following the IV administration of 83 cc of Optiray 320, CT angiogram of the chest was performed from the upper abdomen to the thoracic inlet utilizing the pulmonary embolus protocol. Images are reviewed in the axial, sagittal, and coronal planes. 3-D MIPS images are created and assessed. IV contrast was administered without complication. CT DOSE: 532.15 mGy.cm FINDINGS: Thyroid: Atrophic versus surgically absent. Thoracic aorta: There is atherosclerotic calcification of the thoracic aorta, which is normal in caliber and demonstrates standard 3-vessel arch anatomy. No dissection is seen. Pulmonary vasculature: The main pulmonary arteries are mildly dilated suggesting pulmonary artery hypertension. There are no filling defects identified in main, lobar, or segmental pulmonary branches to suggest pulmonary embolus. Heart: The heart is top normal in size and without pericardial effusion. Lungs and pleural spaces: Evaluation of the lung parenchyma is modestly degraded by motion artifact. No airspace consolidation or pleural effusion is identified. There is dependent atelectasis. The trachea and central airways are clear. Mediastinum: There is no mediastinal lymphadenopathy. Nadia: Clear. Axillae: There is no axillary lymphadenopathy. Upper abdomen: There is a tiny hiatal hernia. Partially visualized upper abdominal viscera is otherwise within normal limits. Skeletal structures: The skeletal structures are osteopenic. Mild degenerative change is noted throughout the thoracic spine. No lytic or blastic bony lesions are seen. IMPRESSION: 1. There is no evidence of pulmonary embolus in the main, lobar, or segmental pulmonary arteries. 2. There is no airspace consolidation or pleural effusion. Electronically signed by: Stevie Smith M.D. 11/22/2016 3:05 PM Dictated Date/Time: 11/22/2016 2:58 PM Laboratory Results 11/22/16 13:00 Red Blood Count 4.40, Mean Corpuscular Volume 91.4, Mean Corpuscular Hemoglobin 29.1, Mean Corpuscular Hemoglobin Concent 31.8, Mean Platelet Volume 9.7, Neutrophils (%) (Auto) 69.9, Lymphocytes (%) (Auto) 13.0, Monocytes (%) (Auto) 9.9, Eosinophils (%) (Auto) 6.1, Basophils (%) (Auto) 0.7, Neutrophils # (Auto) 4.94, Lymphocytes # (Auto) 0.92, Monocytes # (Auto) 0.70, Eosinophils # (Auto) 0.43, Basophils # (Auto) 0.05 Test 11/22/16 13:00 White Blood Count 7.07 K/uL (4.8-10.8) Red Blood Count 4.40 M/uL (4.2-5.4) Hemoglobin 12.8 g/dL (12.0-16.0) Hematocrit 40.2 % (37-47) Mean Corpuscular Volume 91.4 fL (80-100) Mean Corpuscular Hemoglobin 29.1 pg (25-34) Mean Corpuscular Hemoglobin Concent 31.8 g/dl (32-36) Platelet Count 199 K/uL (130-400) Mean Platelet Volume 9.7 fL (7.4-10.4) Neutrophils (%) (Auto) 69.9 % Lymphocytes (%) (Auto) 13.0 % Monocytes (%) (Auto) 9.9 % Eosinophils (%) (Auto) 6.1 % Basophils (%) (Auto) 0.7 % Neutrophils # (Auto) 4.94 K/uL (1.4-6.5) Lymphocytes # (Auto) 0.92 K/uL (1.2-3.4) Monocytes # (Auto) 0.70 K/uL (0.11-0.59) Eosinophils # (Auto) 0.43 K/uL (0-0.5) Basophils # (Auto) 0.05 K/uL (0-0.2) RDW Standard Deviation 48.7 fL (36.4-46.3) RDW Coefficient of Variation 14.3 % (11.5-14.5) Immature Granulocyte % (Auto) 0.4 % Immature Granulocyte # (Auto) 0.03 K/uL (0.00-0.02) D-Dimer 610 ug/L FEU (0-500) Total Bilirubin 0.5 mg/dl (0.2-1) Aspartate Amino Transf (AST/SGOT) 18 U/L (15-37) Alanine Aminotransferase (ALT/SGPT) 26 U/L (12-78) Alkaline Phosphatase 71 U/L (45-117) Troponin I 0.020 ng/ml (0-0.045) Pro-B-Type Natriuretic Peptide 119 pg/ml (0-1800) Total Protein 6.5 gm/dl (6.4-8.2) Albumin 3.1 gm/dl (3.4-5.0) Globulin 3.4 gm/dl (2.5-4.0) Albumin/Globulin Ratio 0.9 (0.9-2) Laboratory results per my review. Medications Administered Medications (Trade) Dose Ordered Sig/Conor Route Start Time Stop Time Status Last Admin Dose Admin Albuterol/ Ipratropium 3 ml 3 ml NOW STAT INH 11/22/16 13:46 11/22/16 13:47 DC 11/22/16 14:05 3 ML Sodium Chloride (Nss 1000ml) 1,000 ml @ 250 mls/hr Q4H STAT IV 11/22/16 14:19 11/22/16 18:18 DC 11/22/16 14:19 250 MLS/HR ECG Indication: SOB/dyspnea Rate (beats per minute): 106 Rhythm: sinus tachycardia Findings: no acute ischemic change, left axis deviation, no ectopy ED Course 1336: The patient was evaluated in room C10. A complete history and physical exam was performed. 1346: Ordered Duoneb 3ml INH 1407: I reevaluated the patient, and she is resting easy. 1419: Ordered Sodium Chloride 1000 ml @ 250 mls/hr IV 1528: I reevaluated the patient, and she feels slightly better. I updated the patient about her current exam findings. She showed no breathing improvement after a nebulizer treatment. Her breathing showed slight improvement after being placed on Nasal [place] oxygen. The patient is going to try an ambulatory Pulsox. 1533: Per nursing staff, the patient experienced a drop in SaO2 to 89 a few steps into her ambulatory Pulsox. 1549: I updated the patient about her CT results. 1555: I discussed the patient's case with case management and paged Chandrika Marvin [facility] 1605: Upon reevaluation, the patient is resting easy. I discussed the findings and the treatment plan with the patient. She and her family express agreement and understanding. I discussed the patient's case with Chandrika Marvin [facility]. The patient will be evaluated for further management. Medical Decision Differential diagnosis: Etiologies such as infections, reactive airway disease, pneumonia, pneumothorax , COPD, CHF, cardiac ischemia, pulmonary embolism, musculoskeletal, gastrointestinal, as well as others were entertained. Medication Reconciliation: I attest that I have personally reviewed the patient' s current medication list. Blood pressure screening: Patient was found to have normal blood pressure on screening and does not require follow-up. No clear etiology of dyspnea found while in the ER however pt with hypoxia and increased WOB interfering with her ADL's. Pt admitted for additional evaluation. No evidence of chf, pe, doubt acs, no hx of tobacco abuse/copd. Pt denied hx of asthma, but listed in PMHx. No evidence of infection, anemia. Pt agreeable with plan. [place] symptomatically improved with oxygen on. Possible asthma exacerbation despite atypical presentation and lack of hx of asthma exacerbations per pt report. Pt doesn't wear home oxygen. CKD at baseline. Consults Time Called: 1555 Consulting Physician: Chandrika Marvin PA-C, [facility] Specialist Returned Call: [phone] I discussed the patient's case with Chandrika Marvin [facility]. The patient will be evaluated for further management. Impression Primary Impression: Dyspnea Additional Impressions: Hypoxia CKD (chronic kidney disease), stage III Scribe Attestation The scribe's documentation has been prepared under my direction and personally reviewed by me in its entirety. I confirm that the note above accurately reflects all work, treatment, procedures, and medical decision making performed by me. Departure Information Dispostion Being Evaluated By Hospitalist Referrals Gatito Monsalve M.D. (PCP) Problem Qualifiers Primary Impression: Dyspnea Dyspnea type: shortness of breath Qualified Codes: R06.02 - Shortness of breath
[2016-11-22 16:34] VITALS: O2SAT 96; BMI 42.3
[2016-11-22] MEDS ORDERED: BENZONATATE 100MG CAP PO PRN (17:15)
[2016-11-22] MEDS ORDERED: ACETAMINOPHEN 325 MG TAB PO PRN (17:15)
[2016-11-22] MEDS ORDERED: DOXYCYCLINE HYCLATE 100 MG CAP PO ONE (17:15)
[2016-11-22] MEDS ORDERED: ONDANSETRON INJ 2 MG/ML 2 ML VIAL IV PRN (17:15)
[2016-11-22] MEDS ORDERED: METHYLPREDNISOLONE IV 40 MG in SYRINGE 0 ML IV SCH ×2 (17:15→20:00)
[2016-11-22] MEDS ORDERED: DEXTROSE 50% 50 ML SYR IV PRN (17:30)
[2016-11-22] MEDS ORDERED: GLUCOSE 10 TABS/TUBE PO PRN (17:30)
[2016-11-22] MEDS ORDERED: GLUCOSE 40% GEL 15 GM TUBE PO PRN (17:30)
[2016-11-22] MEDS ORDERED: GLUCAGON FOR INJ 1 MG VIAL SQ PRN (17:30)
[2016-11-22] MEDS ORDERED: FLV1 PO (17:39)
[2016-11-22] MEDS ORDERED: PRVHFAIN INH (17:41)
[2016-11-22] MEDS ORDERED: SYMIN/8045 INH (17:41)
[2016-11-22] MEDS ORDERED: TRAZODONE HCL 50 MG TAB PO ONE (17:45)
[2016-11-22] MEDS ORDERED: APIXABAN 2.5 MG TAB PO ONE (17:45)
[2016-11-22 19:48] VITALS: BP 124/81; PULSE 85; TEMP 36.8; O2SAT 93
[2016-11-22] MEDS: ALBUT/IPRATROP 3MG/0.5MG NEB 3 ML VIAL INH SCH (20:00)
[2016-11-22] MEDS: SIMVASTATIN 20 MG TAB PO SCH (20:44)
[2016-11-22] MEDS: TRAZODONE HCL 50 MG TAB PO SCH (20:46)
[2016-11-22] MEDS: BUDESONIDE/FORMOTEROL FUMARATE 80/4.5 60 PUFFS/INHALER INH SCH (20:46)
[2016-11-22] MEDS: INSULIN ASPART 100 UNITS/ML 3 ML PEN SC SCH (20:48)
[2016-11-22] MEDS ORDERED: DOXYCYCLINE HYCLATE 100 MG CAP PO SCH (21:00)
[2016-11-22] MEDS ORDERED: APIXABAN 2.5 MG TAB PO SCH (21:00)
--- NOTE | 2016-11-22 21:05 | History and Physical ---
History & Physical Date & Time of Service: November 22, 2016 at 17:20 Chief Complaint: Respiratory Difficulty Primary Care Physician: Gatito Monsalve M.D. History of Present Illness Source: patient, hospital records This is an 81 y/o female with PMH of asthma, DM 2, HTN, HL, hx PE and DVT on Eliquis, depression, and other problems listed below who presents to the ED with productive cough and dyspnea on exertion. Per daughter at bedside, patient developed cough 3 days ago productive of yellow sputum. Daughter reports associated fatigue and dyspnea/ wheezing with minimal exertion. There is no dyspnea at rest. At baseline she can vacuum half a room before needing to rest. She is chronically cold, but not experiencing chills or fever. She denies itchy watery eyes, sneezing, rhinorrhea, sore throat, ear ache, chest samayoa, orthopnea, N/V/D, dysuria, frequency, increasing edema, weight gain. No sick contact. Not using her inhalers lately. She is not on home oxygen. Patient was hospitalized back in June 2016 for AMS, ataxia, memory deficits, [place] with hypoxia, with workup unremarkable except for depression. Pt was seen by neurology and donepezil and memantine were discontinued. Daughter states memory improved at that time but still has mild forgetfulness. Mood has been stable. Past Medical/Surgical History Medical Problems: (1) Asthma Status: Chronic (2) Ataxia Status: Chronic (3) Bronchitis Status: Resolved (4) CKD (chronic kidney disease), stage III Status: Chronic (5) Depression Status: Chronic (6) Dyslipidemia Status: Chronic (7) History of DVT (deep vein thrombosis) Permanent Comment: LLE 2014 Status: Chronic (8) History of pulmonary embolism Permanent Comment: 2014 Status: Chronic (9) Hypertension Status: Chronic (10) Hypothyroidism Status: Chronic (11) Memory loss Status: Chronic (12) Pneumonia Status: Resolved (13) Type 2 diabetes mellitus Permanent Comment: diet-controlled Status: Chronic Surgical Problems: (1) Status post appendectomy Status: Chronic (2) Status post tonsillectomy Status: Chronic Family History Alzheimer's disease MOTHER Family history black lung FATHER Social History Smoking Status: Never Smoker Alcohol Use: none Marital Status: Housing status: lives alone Occupational Status: retired Allergies Coded Allergies: Codeine (Verified Allergy, Unknown, unk, 11/22/16) Fluticasone (Verified Allergy, Unknown, unk, 11/22/16) Macrolides and Ketolides (Verified Allergy, Unknown, PT UNSURE, 11/22/16) Salmeterol (Verified Allergy, Unknown, unk, 11/22/16) Sulfa Antibiotics (Verified Allergy, Unknown, PT UNSURE, 11/22/16) Troleandomycin (Verified Allergy, Unknown, unk, 11/22/16) Home Medications Scheduled Apixaban (Eliquis), 2.5 MG PO BID Buspirone HCl (Buspirone HCl), 5 MG PO BID17 Fluoxetine (Prozac), 60 MG PO QAM Folic Acid (Folic Acid), 1 MG PO UD Glimepiride (Glimepiride), 2 MG PO QAM Levothyroxine Sodium (Levothyroxine Sodium), 88 MCG PO QAM Ocuvite Preservision (Ocuvite Preservision), 1 TAB PO DAILY Senna (Senna Lax), 8.6 MG PO QAM Simvastatin (Zocor), 20 MG PO HS Trazodone Hcl (Desyrel), 50 MG PO UD Scheduled PRN Albuterol (Ventolin Hfa), 2 PUFFS INH QID PRN for SOB/Wheezing Budesonide/Formoterol Fumarate (Symbicort 80/4.5 Inhaler), 2 PUFFS INH BID PRN for SOB/Wheezing Review of Systems Ten systems reviewed and negative except as noted in HPI. Physical Exam Vital Signs Date Time Temp Pulse Resp B/P Pulse Ox O2 Delivery O2 Flow Rate FiO2 11/22/16 15:34 81 24 120/76 96 Nasal Cannula 2.0 11/22/16 15:33 89 Room Air 11/22/16 14:05 92 16 131/57 97 Room Air 11/22/16 13:15 95 Room Air 11/22/16 13:07 37.4 91 23 140/73 92 Room Air 11/22/16 13:07 92 Room Air General Appearance: no apparent distress, + obese, + pertinent finding ( pleastant alert 81 y/o female, not in distress, daughter and son at bedside) Head: normocephalic, atraumatic Eyes: normal inspection, PERRL, EOMI ENT: normal ENT inspection, hearing grossly normal, TMs normal, pharynx normal , + pertinent finding (no sinus tenderness) Neck: supple, no JVD, trachea midline Respiratory/Chest: no respiratory distress, no accessory muscle use, + wheezing (moderate expiratory wheezing throughout), + pertinent finding (frequent cough. saturating well on 2 liters NC) Cardiovascular: regular rate, rhythm, no murmur Abdomen/GI: normal bowel sounds, non tender, soft Extremities/Musculoskelatal: normal inspection, no calf tenderness, no pedal edema Neurologic/Psych: alert, normal mood/affect, oriented x 3, + pertinent finding (no facial droop. no dysarthria. no focal deficit on gross examination) Skin: normal color, warm/dry Diagnostics Laboratory Results Results Past 24 Hours Test 11/22/16 13:00 Range/Units White Blood Count 7.07 4.8-10.8 K/uL Red Blood Count 4.40 4.2-5.4 M/uL Hemoglobin 12.8 12.0-16.0 g/dL Hematocrit 40.2 37-47 % Mean Corpuscular Volume 91.4 80-100 fL Mean Corpuscular Hemoglobin 29.1 25-34 pg Mean Corpuscular Hemoglobin Concent 31.8 32-36 g/dl Platelet Count 199 130-400 K/uL Mean Platelet Volume 9.7 7.4-10.4 fL Neutrophils (%) (Auto) 69.9 % Lymphocytes (%) (Auto) 13.0 % Monocytes (%) (Auto) 9.9 % Eosinophils (%) (Auto) 6.1 % Basophils (%) (Auto) 0.7 % Neutrophils # (Auto) 4.94 1.4-6.5 K/uL Lymphocytes # (Auto) 0.92 1.2-3.4 K/uL Monocytes # (Auto) 0.70 0.11-0.59 K/uL Eosinophils # (Auto) 0.43 0-0.5 K/uL Basophils # (Auto) 0.05 0-0.2 K/uL RDW Standard Deviation 48.7 36.4-46.3 fL RDW Coefficient of Variation 14.3 11.5-14.5 % Immature Granulocyte % (Auto) 0.4 % Immature Granulocyte # (Auto) 0.03 0.00-0.02 K/uL D-Dimer 610 0-500 ug/L FEU Sodium Level 143 136-145 mmol/L Potassium Level 4.1 3.5-5.1 mmol/L Chloride Level 103 98-107 mmol/L Carbon Dioxide Level 34 21-32 mmol/L Anion Gap 6.0 3-11 mmol/L Blood Urea Nitrogen 14 7-18 mg/dl Creatinine 1.60 0.60-1.20 mg/dl Est Creatinine Clear Calc Drug Dose 32.0 ml/min Estimated GFR () 34.4 Estimated GFR (Non- 29.7 BUN/Creatinine Ratio 8.5 10-20 Random Glucose 157 70-99 mg/dl Calcium Level 8.8 8.5-10.1 mg/dl Total Bilirubin 0.5 0.2-1 mg/dl Aspartate Amino Transf (AST/SGOT) 18 15-37 U/L Alanine Aminotransferase (ALT/SGPT) 26 12-78 U/L Alkaline Phosphatase 71 45-117 U/L Troponin I 0.020 0-0.045 ng/ml Pro-B-Type Natriuretic Peptide 119 0-1800 pg/ml Total Protein 6.5 6.4-8.2 gm/dl Albumin 3.1 3.4-5.0 gm/dl Globulin 3.4 2.5-4.0 gm/dl Albumin/Globulin Ratio 0.9 0.9-2 Diagnostic Radiology TWO VIEW CHEST IMPRESSION: Cardiomegaly with no acute cardiopulmonary abnormality. CT ANGIOGRAM OF THE CHEST IMPRESSION: 1. There is no evidence of pulmonary embolus in the main, lobar, or segmental pulmonary arteries. 2. There is no airspace consolidation or pleural effusion. EKG sinus tachycardia, rate 106, no ST or T wave abnormality Impression Assessment and Plan ASTHMA EXACERBATION Presents with dyspnea/ wheezing on minimal exertion, hypoxic to 89% on RA in ER ; not on home O2 Secondary to acute bronchitis CTA chest- negative for PE, no consolidation Will treat with PO doxycycline, IV Solu-medrol 40 mg q8, Duonebs Resume Symbicort; patient instructed to use scheduled rather than PRN Continue supplemental O2 per protocol HISTORY OF HYPERTENSION BP is controlled Not on antihypertensives HX DIASTOLIC DYSFUNCTION Clinically euvolemic DEPRESSION Stable; continue fluoxetine and trazodone HISTORY PE AND DVT Continue Eliquis CKD STAGE III Creat is 1.6; stable from baseline Monitor renal function Avoid nephrotoxins DM TYPE 2 Hold glimepiride during hospitalization Insulin sliding scale coverage Watch for rising blood sugar on IV steroids Check A1c in AM HYPOTHYROIDISM Continue levothyroxine DYSLIPIDEMIA Continue statin DVT PROPHYLAXIS Continue apixaban CODE STATUS Full code per my discussion with the patient. DISPOSITION Admission to med/ surg Follows with Dr. Monsalve for primary care Lives alone environmental services director consulted for discharge planning Patient seen in collaboration with Dr. Grossman. Please see his addendum. Attending Addendum: The patient was seen and examined Cough with sob worse for the last few days Associated with wheezing No fever,chills O/E No apparent distress HEENT-unremarkable Chest-decreased breath sound with moderate wheezing bilaterally Heart-regular,no murmur Abdomen-benign,no masses,bowel sound present Extremities-trace edema bilaterally Labs and Imaging studies were reviewed Has Asthma Exacerbation ,likely infective Agree with Assessment and plan. Dr Curt Grossman VTE Prophylaxis VTE Risk Assessment Done? Y/N: Yes Risk Level: High Given or contraindicated: Other Anticoagulation
[2016-11-22 23:41] VITALS: BP 145/82; PULSE 72; TEMP 36.5; O2SAT 96
[2016-11-23] MEDS: METHYLPREDNISOLONE IV 40 MG in SYRINGE 0 ML IV SCH ×3 (01:29→17:19)
[2016-11-23] MEDS: LEVOTHYROXINE 88 MCG TAB PO SCH (05:55)
[2016-11-23 06:24] LABS: BUN/CREATININE RATIO 12.8 (10-20); CALCIUM 8.5 mg/dl (8.5-10.1); CREATININE 1.5 mg/dl (0.60-1.20); POTASSIUM 4.6 mmol/L (3.5-5.1)
[2016-11-23 07:22] VITALS: BP 119/70; PULSE 71; TEMP 36.4; O2SAT 96
[2016-11-23] MEDS: ALBUT/IPRATROP 3MG/0.5MG NEB 3 ML VIAL INH SCH ×4 (07:33→18:51)
[2016-11-23 07:36] VITALS: PULSE 71; O2SAT 97
[2016-11-23] MEDS: CEROVITE ADV FORMULA TAB PO SCH (08:45)
[2016-11-23] MEDS: APIXABAN 2.5 MG TAB PO SCH ×2 (08:45→17:17)
[2016-11-23] MEDS: DOXYCYCLINE HYCLATE 100 MG CAP PO SCH ×2 (08:46→20:26)
[2016-11-23] MEDS: BUDESONIDE/FORMOTEROL FUMARATE 80/4.5 60 PUFFS/INHALER INH SCH ×2 (08:47→20:26)
[2016-11-23] MEDS: INSULIN ASPART 100 UNITS/ML 3 ML PEN SC SCH ×4 (08:50→21:25)
[2016-11-23] MEDS: FLUOXETINE HCL 20 MG CAP PO SCH (09:17)
[2016-11-23] MEDS: SENNA 8.6 MG TAB PO SCH (09:17)
[2016-11-23 14:25] VITALS: PULSE 73; O2SAT 96
--- NOTE | 2016-11-23 14:31 | Progress Note ---
Internal Med Progress Note Date of Service: November 23, 2016. Provider Documentation: SUBJECTIVE: The patient was seen and examined A little better today Denies any new symptoms OBJECTIVE: Vital Signs-as noted below Exam: General-No distress at rest Eyes-normal ENT-normal Neck-supple Lungs-Decreased breath sound bilaterally,no more wheezing No0 crackles Heart-Regular,no murmur Abdomen-Benign,no masses,bowel sound present Extremities-trace edema bilaterally Neuro-AAOx3 Lab data as noted below. ASSESSMENT & PLAN: ASTHMA EXACERBATION Likely infective Presents with dyspnea/ wheezing on minimal exertion, hypoxic to 89% on RA in ER ; not on home O2 Secondary to acute bronchitis CTA chest- negative for PE, no consolidation Started on PO doxycycline, IV Solu-medrol 40 mg q8, Duonebs Resume Symbicort; patient instructed to use scheduled rather than PRN Continue supplemental O2 per protocol Will need 2 steps before discharge HISTORY OF HYPERTENSION BP is controlled Not on antihypertensives HX DIASTOLIC DYSFUNCTION Clinically euvolemic ECHO in June 2016-grade 1 Diastolic dysfunction ,EF 60% DEPRESSION Stable; continue fluoxetine and trazodone HISTORY PE AND DVT Continue Eliquis CKD STAGE III Creat is 1.6; stable from baseline Monitor renal function Avoid nephrotoxins Renal function improving DM TYPE 2 Hold glimepiride during hospitalization Insulin sliding scale coverage Watch for rising blood sugar on IV steroids Check A1c in AM-pending HYPOTHYROIDISM Continue levothyroxine DYSLIPIDEMIA Continue statin DVT PROPHYLAXIS Continue apixaban CODE STATUS Full code per my discussion with the patient. DISPOSITION Admission to med/ surg Follows with Dr. Monsalve for primary care Lives alone manager administrative services consulted for discharge planning Vital Signs: Date Time Temp Pulse Resp B/P Pulse Ox O2 Delivery O2 Flow Rate FiO2 11/23/16 08:45 Nasal Cannula 2.0 11/23/16 07:36 71 16 97 Nasal Cannula 2.0 11/23/16 07:22 36.4 71 18 119/70 96 Nasal Cannula 2.0 11/23/16 00:00 Nasal Cannula 2.0 11/22/16 23:41 36.5 72 20 145/82 96 Room Air 11/22/16 19:48 36.8 85 18 124/81 93 Room Air 11/22/16 18:16 103 20 140/59 96 Nasal Cannula 2.0 11/22/16 17:24 75 22 128/68 96 Nasal Cannula 2.0 11/22/16 16:34 96 Nasal Cannula 2.0 11/22/16 15:34 81 24 120/76 96 Nasal Cannula 2.0 11/22/16 15:33 89 Room Air Lab Results: Results Past 24 Hours Test 11/22/16 20:02 11/23/16 05:19 11/23/16 07:31 11/23/16 11:13 Range/Units Bedside Glucose 111 243 285 70-90 mg/dl Sodium Level 141 136-145 mmol/L Potassium Level 4.6 3.5-5.1 mmol/L Chloride Level 104 98-107 mmol/L Carbon Dioxide Level 34 21-32 mmol/L Anion Gap 3.0 3-11 mmol/L Blood Urea Nitrogen 19 7-18 mg/dl Creatinine 1.50 0.60-1.20 mg/dl Est Creatinine Clear Calc Drug Dose 34.1 ml/min Estimated GFR () 37.2 Estimated GFR (Non- 32.1 BUN/Creatinine Ratio 12.8 10-20 Random Glucose 252 70-99 mg/dl Calcium Level 8.5 8.5-10.1 mg/dl
[2016-11-23 14:44] VITALS: BP 113/60; PULSE 80; TEMP 36.7; O2SAT 95
[2016-11-23] MEDS: TRAZODONE HCL 50 MG TAB PO SCH ×2 (17:17→20:26)
[2016-11-23 18:51] VITALS: PULSE 90; O2SAT 96
[2016-11-23] MEDS: SIMVASTATIN 20 MG TAB PO SCH (20:26)
[2016-11-24 00:19] VITALS: BP 124/71; PULSE 77; TEMP 36.5; O2SAT 93
[2016-11-24] MEDS: METHYLPREDNISOLONE IV 40 MG in SYRINGE 0 ML IV SCH ×3 (01:56→17:43)
[2016-11-24] MEDS: LEVOTHYROXINE 88 MCG TAB PO SCH (05:24)
[2016-11-24] MEDS: ALBUT/IPRATROP 3MG/0.5MG NEB 3 ML VIAL INH SCH (07:16)
[2016-11-24 07:31] LABS: ESTIMATED AVERAGE GLUCOSE 148 mg/dl; HA1C FLAG Normal (Normal)
[2016-11-24 07:50] VITALS: BP 127/70; PULSE 74; TEMP 36.5; O2SAT 91
[2016-11-24] MEDS: FLUOXETINE HCL 20 MG CAP PO SCH (08:12)
[2016-11-24] MEDS: CEROVITE ADV FORMULA TAB PO SCH (08:12)
[2016-11-24] MEDS: BUDESONIDE/FORMOTEROL FUMARATE 80/4.5 60 PUFFS/INHALER INH SCH ×2 (08:12→21:54)
[2016-11-24] MEDS: APIXABAN 2.5 MG TAB PO SCH ×2 (08:13→17:45)
[2016-11-24] MEDS: DOXYCYCLINE HYCLATE 100 MG CAP PO SCH ×2 (08:13→21:36)
[2016-11-24] MEDS: SENNA 8.6 MG TAB PO SCH (08:13)
[2016-11-24] MEDS: INSULIN ASPART 100 UNITS/ML 3 ML PEN SC SCH ×4 (08:23→21:54)
[2016-11-24 09:57] VITALS: PULSE 94; O2SAT 96
--- NOTE | 2016-11-24 13:08 | Progress Note ---
Internal Med Progress Note Date of Service: November 24, 2016. Provider Documentation: SUBJECTIVE: The patient was seen and examined Much better today Denies any new symptoms OBJECTIVE: Vital Signs-as noted below Exam: General-No distress at rest Eyes-normal ENT-normal Neck-supple Lungs-Decreased breath sound bilaterally,no more wheezing No crackles Heart-Regular,no murmur Abdomen-Benign,no masses,bowel sound present Extremities-trace edema bilaterally Neuro-AAOx3 Lab data as noted below. ASSESSMENT & PLAN: ASTHMA EXACERBATION Likely infective Presents with dyspnea/ wheezing on minimal exertion, hypoxic to 89% on RA in ER ; not on home O2 Secondary to acute bronchitis CTA chest- negative for PE, no consolidation Started on PO doxycycline, IV Solu-medrol 40 mg q8, Duonebs Resume Symbicort; patient instructed to use scheduled rather than PRN Continue supplemental O2 per protocol Will need 2 steps before discharge Nocturnal pulse Oximetry is negative Clinically much better Getting PT ,PRN cough medicine Likely home tomorrow HISTORY OF HYPERTENSION BP is controlled Not on antihypertensives HX DIASTOLIC DYSFUNCTION Clinically euvolemic ECHO in June 2016-grade 1 Diastolic dysfunction ,EF 60% DEPRESSION Stable; continue fluoxetine and trazodone HISTORY PE AND DVT Continue Eliquis CKD STAGE III Creat is 1.6; stable from baseline Monitor renal function Avoid nephrotoxins Renal function improving DM TYPE 2 Hold glimepiride during hospitalization Insulin sliding scale coverage Watch for rising blood sugar on IV steroids Check A1c in AM-6.8 HYPOTHYROIDISM Continue levothyroxine DYSLIPIDEMIA Continue statin DVT PROPHYLAXIS Continue apixaban CODE STATUS Full code per my discussion with the patient. DISPOSITION Admission to med/ surg Follows with Dr. Monsalve for primary care Lives alone guidance services coordinator consulted for discharge planning Vital Signs: Date Time Temp Pulse Resp B/P Pulse Ox O2 Delivery O2 Flow Rate FiO2 11/24/16 09:57 94 96 11/24/16 08:15 Room Air 11/24/16 07:50 36.5 74 18 127/70 91 Room Air 11/24/16 00:45 Room Air 11/24/16 00:19 36.5 77 18 124/71 93 Room Air 11/23/16 21:35 Room Air 11/23/16 18:51 90 16 96 Nasal Cannula 2.0 11/23/16 15:36 Nasal Cannula 2.0 11/23/16 14:44 36.7 80 18 113/60 95 Nasal Cannula 2.0 11/23/16 14:25 73 16 96 Nasal Cannula 2.0 Lab Results: Results Past 24 Hours Test 11/23/16 16:29 11/23/16 20:15 11/24/16 07:49 11/24/16 11:40 Range/Units Bedside Glucose 375 309 222 255 70-90 mg/dl
[2016-11-24] MEDS: IPRATROPIUM BROMIDE/ALBUTEROL respimat INH INH SCH ×3 (13:49→21:36)
[2016-11-24 14:14] VITALS: Ht 160 cm; Wt 108.3 kg
[2016-11-24 17:13] VITALS: BP 138/69; PULSE 81; TEMP 36.6; O2SAT 92
[2016-11-24] MEDS: TRAZODONE HCL 50 MG TAB PO SCH ×2 (17:44→21:37)
[2016-11-24] MEDS: SIMVASTATIN 20 MG TAB PO SCH (21:38)
[2016-11-25 00:18] VITALS: BP 142/76; PULSE 74; TEMP 36.5; O2SAT 90
[2016-11-25] MEDS: METHYLPREDNISOLONE IV 40 MG in SYRINGE 0 ML IV SCH ×2 (02:20→10:52)
[2016-11-25 05:41] LABS: HEMATOCRIT 36.7 % (37-47); MEAN CELL VOLUME 89.5 fL (80-100); MEAN CORPUSCULAR HEMOGLOBIN 28.5 pg (25-34); MEAN CORPUSCULAR HGB CONC 31.9 g/dl (32-36); MEAN PLATELET VOLUME 9.5 fL (7.4-10.4); PLATELET COUNT 209 K/uL (130-400); WHITE BLOOD COUNT 10.37 K/uL (4.8-10.8)
[2016-11-25 06:11] LABS: BUN/CREATININE RATIO 22.8 (10-20); CALCIUM 8.2 mg/dl (8.5-10.1); CREATININE 1.6 mg/dl (0.60-1.20); POTASSIUM 4.3 mmol/L (3.5-5.1)
[2016-11-25] MEDS: LEVOTHYROXINE 88 MCG TAB PO SCH (06:16)
[2016-11-25 07:23] VITALS: BP 153/78; PULSE 76; TEMP 36.5; O2SAT 94
[2016-11-25] MEDS: APIXABAN 2.5 MG TAB PO SCH (08:27)
[2016-11-25] MEDS: CEROVITE ADV FORMULA TAB PO SCH (08:27)
[2016-11-25] MEDS: FLUOXETINE HCL 20 MG CAP PO SCH (08:27)
[2016-11-25] MEDS: SENNA 8.6 MG TAB PO SCH (08:27)
[2016-11-25] MEDS: DOXYCYCLINE HYCLATE 100 MG CAP PO SCH (08:27)
[2016-11-25] MEDS: BUDESONIDE/FORMOTEROL FUMARATE 80/4.5 60 PUFFS/INHALER INH SCH (08:27)
[2016-11-25] MEDS: IPRATROPIUM BROMIDE/ALBUTEROL respimat INH INH SCH ×2 (08:28→12:35)
[2016-11-25] MEDS: INSULIN ASPART 100 UNITS/ML 3 ML PEN SC SCH ×2 (08:32→12:40)
[2016-11-25] MEDS ORDERED: GUAIFENESIN/CODEINE 200MG/20MG 10ML UDC PO PRN (11:15)
[2016-11-25] MEDS ORDERED: GUAIFENESIN SUGAR FREE 100 MG/5 ML UDC PO PRN (12:15)
--- NOTE | 2016-11-25 13:36 | Progress Note ---
Internal Med Progress Note Date of Service: November 25, 2016. Provider Documentation: SUBJECTIVE: The patient was seen and examined Denies any new symptoms Complains of some cough otherwise much better Ready to be discharged OBJECTIVE: Vital Signs-as noted below Exam: General-No distress at rest Eyes-normal ENT-normal Neck-supple Lungs-Decreased breath sound bilaterally,no more wheezing No crackles Heart-Regular,no murmur Abdomen-Benign,no masses,bowel sound present Extremities-trace edema bilaterally Neuro-AAOx3 Lab data as noted below. ASSESSMENT & PLAN: ASTHMA EXACERBATION Likely infective Presents with dyspnea/ wheezing on minimal exertion, hypoxic to 89% on RA in ER ; not on home O2 Secondary to acute bronchitis CTA chest- negative for PE, no consolidation Started on PO doxycycline, IV Solu-medrol 40 mg q8, Duonebs Resume Symbicort; patient instructed to use scheduled rather than PRN Continue supplemental O2 per protocol Will need 2 steps before discharge Nocturnal pulse Oximetry is negative Getting PT ,PRN cough medicine Will get 2 steps before discharge HISTORY OF HYPERTENSION BP is controlled Not on antihypertensives Minimally high Follow up as an OP to see if she requires any medication HX DIASTOLIC DYSFUNCTION Clinically euvolemic ECHO in June 2016-grade 1 Diastolic dysfunction ,EF 60% No acute issue DEPRESSION Stable; continue fluoxetine and trazodone HISTORY PE AND DVT Continue Eliquis CKD STAGE III Creat is 1.6; stable from baseline Monitor renal function Avoid nephrotoxins Renal function improving DM TYPE 2 Hold glimepiride during hospitalization Insulin sliding scale coverage Watch for rising blood sugar on IV steroids Check A1c in AM-6.8 HYPOTHYROIDISM Continue levothyroxine DYSLIPIDEMIA Continue statin DVT PROPHYLAXIS Continue apixaban CODE STATUS Full code per my discussion with the patient. DISPOSITION Admission to med/ surg Follows with Dr. Monsalve for primary care Lives alone social services analyst consulted for discharge planning Will make follow up appointment by herself Vital Signs: Date Time Temp Pulse Resp B/P Pulse Ox O2 Delivery O2 Flow Rate FiO2 11/25/16 08:30 Room Air 11/25/16 07:23 36.5 76 20 153/78 94 Room Air 11/25/16 00:18 36.5 74 20 142/76 90 Room Air 11/25/16 00:00 Room Air 11/24/16 20:00 Room Air 11/24/16 17:13 36.6 81 18 138/69 92 Room Air 11/24/16 15:33 Room Air Lab Results: Results Past 24 Hours Test 11/24/16 16:48 11/24/16 20:36 11/25/16 05:26 11/25/16 07:35 Range/Units Bedside Glucose 192 263 284 70-90 mg/dl White Blood Count 10.37 4.8-10.8 K/uL Red Blood Count 4.10 4.2-5.4 M/uL Hemoglobin 11.7 12.0-16.0 g/dL Hematocrit 36.7 37-47 % Mean Corpuscular Volume 89.5 80-100 fL Mean Corpuscular Hemoglobin 28.5 25-34 pg Mean Corpuscular Hemoglobin Concent 31.9 32-36 g/dl RDW Standard Deviation 46.5 36.4-46.3 fL RDW Coefficient of Variation 14.1 11.5-14.5 % Platelet Count 209 130-400 K/uL Mean Platelet Volume 9.5 7.4-10.4 fL Sodium Level 142 136-145 mmol/L Potassium Level 4.3 3.5-5.1 mmol/L Chloride Level 104 98-107 mmol/L Carbon Dioxide Level 32 21-32 mmol/L Anion Gap 6.0 3-11 mmol/L Blood Urea Nitrogen 36 7-18 mg/dl Creatinine 1.60 0.60-1.20 mg/dl Est Creatinine Clear Calc Drug Dose 32.0 ml/min Estimated GFR () 34.4 Estimated GFR (Non- 29.7 BUN/Creatinine Ratio 22.8 10-20 Random Glucose 279 70-99 mg/dl Calcium Level 8.2 8.5-10.1 mg/dl Test 11/25/16 11:25 Range/Units Bedside Glucose 296 70-90 mg/dl
[2016-11-25] MEDS ORDERED: PRED10TA PO (15:32)
[2016-11-25] MEDS ORDERED: DXY100 PO (15:32)
[2016-11-25] MEDS ORDERED: RBTUDL5 PO (15:32)
--- NOTE | 2016-11-25 15:34 | Discharge Instructions ---
Discharge Instructions Date of Service November 25, 2016. Admission Reason for Admission: Asthma Exacerbation, Hypoxia Discharge Discharge Diagnosis / Problem: Asthma Exacerbation Discharge Goals Goal(s): Prevent Disease Progression Activity Recommendations Activity Limitations: resume your previous activity . Instructions / Follow-Up Instructions / Follow-Up Please make an appointment with your PCP in 1 week. Current Hospital Diet Patient's current hospital diet: Diabetes Type 2 Diet, AHA Diet (Heart Healthy) Discharge Diet Recommended Diet: AHA Diet (Heart Healthy), Diabetes Type 2 Diet Pending Studies Studies pending at discharge: no Laboratory Results Hemoglobin A1c Test 11/23/16 05:19 Range/Units Estimated Average Glucose 148 mg/dl Hemoglobin A1c 6.8 H 4.5-5.6 % Medical Emergencies . Who to Call and When: Medical Emergencies: If at any time you feel your situation is an emergency, please call 911 immediately. . Non-Emergent Contact Non-Emergency issues call your: Primary Care Provider . Past History Medical & Surgical History: (1) Asthma exacerbation (2) Dyspnea (3) Hypoxia (4) Type 2 diabetes mellitus (5) Hypertension (6) CKD (chronic kidney disease), stage III (7) Hypothyroidism (8) History of pulmonary embolism (9) History of DVT (deep vein thrombosis) (10) Status post appendectomy (11) Status post tonsillectomy . "Provider Documentation" section prepared by Ceferino Grossman. . VTE Core Measure Inpt VTE Proph given/why not?: Other Anticoagulation
[2016-11-25 15:43] VITALS: BP 153/78; PULSE 76; TEMP 36.5; O2SAT 94
--- NOTE | 2016-11-26 07:38 | Discharge Summary ---
Discharge Summary Date of Service November 26, 2016. Discharge Summary Admission Date: November 22, 2016 at 17:02 Discharge Date: November 25, 2016 Discharge Disposition: Home Principal Diagnosis: Asthma Exacerbation Secondary Diagnoses/Problems: Please see H&P and Hospital Progress note Medication Reconciliation New Medications: Prednisone Tab (Prednisone) 10 Mg Tab 10 MG PO UD for 12 Days, #30 TAB 4 po daily for 3 dasy,3 po daily for 3 dasy,2 po daily for 3 days and then 1 po daily for 3 days Doxycycline Hyclate (Doxycycline Hyclate) 100 Mg Cap 100 MG PO BID for 4 Days, #8 CAP Guaifenesin (Robitussin) 100 Mg/5 Ml Sera 100 MG PO Q6H PRN for Cough for 10 Days, #200 ML Continued Medications: Albuterol (Ventolin Hfa) 60 Puffs/5400 Mcg Aers 2 PUFFS INH QID PRN for SOB/Wheezing Apixaban (Eliquis) 2.5 Mg Tab 2.5 MG PO BID Budesonide/Formoterol Fumarate (Symbicort 80/4.5 Inhaler) 120 Puffs/ Aero 2 PUFFS INH BID PRN for SOB/Wheezing, #10.2 GM 5 Refills Buspirone HCl (Buspirone HCl) 5 Mg Tab 5 MG PO BID17 for 30 Days, #60 TAB Fluoxetine (Prozac) 20 Mg Cap 60 MG PO QAM, CAP Folic Acid (Folic Acid) 1 Mg Tab 1 MG PO UD 1 mg by mouth daily at noon Glimepiride (Glimepiride) 2 Mg Tab 2 MG PO QAM for 30 Days, #30 TAB Levothyroxine Sodium (Levothyroxine Sodium) 88 Mcg Tab 88 MCG PO QAM for 90 Days, #90 TAB 3 Refills Ocuvite Preservision (Ocuvite Preservision) 1 Tab Tab 1 TAB PO DAILY, TAB Senna (Senna Lax) 8.6 Mg Tab 8.6 MG PO QAM for 30 Days, #30 TAB Simvastatin (Zocor) 20 Mg Tab 20 MG PO HS, TAB Trazodone Hcl (Desyrel) 50 Mg Tab 50 MG PO UD, TAB TAKE 1 TAB AT SUPPER AND 1 TAB AT BEDTIME Admission Information HPI (per Admitting provider): This is an 81 y/o female with PMH of asthma, DM 2, HTN, HL, hx PE and DVT on Eliquis, depression, and other problems listed below who presents to the ED with productive cough and dyspnea on exertion. Per daughter at bedside, patient developed cough 3 days ago productive of yellow sputum. Daughter reports associated fatigue and dyspnea/ wheezing with minimal exertion. There is no dyspnea at rest. At baseline she can vacuum half a room before needing to rest. She is chronically cold, but not experiencing chills or fever. She denies itchy watery eyes, sneezing, rhinorrhea, sore throat, ear ache, chest samayoa, orthopnea, N/V/D, dysuria, frequency, increasing edema, weight gain. No sick contact. Not using her inhalers lately. She is not on home oxygen. Patient was hospitalized back in June 2016 for AMS, ataxia, memory deficits, [place] with hypoxia, with workup unremarkable except for depression. Pt was seen by neurology and donepezil and memantine were discontinued. Daughter states memory improved at that time but still has mild forgetfulness. Mood has been stable. Past Medical/Surgical History Medical Problems: (1) Asthma Status: Chronic (2) Ataxia Status: Chronic (3) Bronchitis Status: Resolved (4) CKD (chronic kidney disease), stage III Status: Chronic (5) Depression Status: Chronic (6) Dyslipidemia Status: Chronic (7) History of DVT (deep vein thrombosis) Permanent Comment: LL2014 Status: Chronic (8) History of pulmonary embolism Permanent Comment: 2014 Status: Chronic (9) Hypertension Status: Chronic (10) Hypothyroidism Status: Chronic (11) Memory loss Status: Chronic (12) Pneumonia Status: Resolved (13) Type 2 diabetes mellitus Permanent Comment: diet-controlled Status: Chronic Surgical Problems: (1) Status post appendectomy Status: Chronic (2) Status post tonsillectomy Status: Chronic Family History Alzheimer's disease MOTHER Family history black lung FATHER Social History Smoking Status: Never Smoker Alcohol Use: none Marital Status: Housing status: lives alone Occupational Status: retired Allergies Coded Allergies: Codeine (Verified Allergy, Unknown, unk, 11/22/16) Fluticasone (Verified Allergy, Unknown, unk, 11/22/16) Macrolides and Ketolides (Verified Allergy, Unknown, PT UNSURE, 11/22/16) Salmeterol (Verified Allergy, Unknown, unk, 11/22/16) Sulfa Antibiotics (Verified Allergy, Unknown, PT UNSURE, 11/22/16) Troleandomycin (Verified Allergy, Unknown, unk, 11/22/16) Home Medications Scheduled Apixaban (Eliquis), 2.5 MG PO BID Buspirone HCl (Buspirone HCl), 5 MG PO BID17 Fluoxetine (Prozac), 60 MG PO QAM Folic Acid (Folic Acid), 1 MG PO UD Glimepiride (Glimepiride), 2 MG PO QAM Levothyroxine Sodium (Levothyroxine Sodium), 88 MCG PO QAM Ocuvite Preservision (Ocuvite Preservision), 1 TAB PO DAILY Senna (Senna Lax), 8.6 MG PO QAM Simvastatin (Zocor), 20 MG PO HS Trazodone Hcl (Desyrel), 50 MG PO UD Scheduled PRN Albuterol (Ventolin Hfa), 2 PUFFS INH QID PRN for SOB/Wheezing Budesonide/Formoterol Fumarate (Symbicort 80/4.5 Inhaler), 2 PUFFS INH BID PRN for SOB/Wheezing Review of Systems Ten systems reviewed and negative except as noted in HPI. Physical Ex - H&P Physical Exam Vital Signs Date Time Temp Pulse Resp B/P Pulse Ox O2 Delivery O2 Flow Rate FiO2 11/22/16 15:34 81 24 120/76 96 Nasal Cannula 2.0 11/22/16 15:33 89 Room Air 11/22/16 14:05 92 16 131/57 97 Room Air 11/22/16 13:15 95 Room Air 11/22/16 13:07 37.4 91 23 140/73 92 Room Air 11/22/16 13:07 92 Room Air General Appearance: no apparent distress, + obese, + pertinent finding ( pleastant alert 81 y/o female, not in distress, daughter and son at bedside) Head: normocephalic, atraumatic Eyes: normal inspection, PERRL, EOMI ENT: normal ENT inspection, hearing grossly normal, TMs normal, pharynx normal , + pertinent finding (no sinus tenderness) Neck: supple, no JVD, trachea midline Respiratory/Chest: no respiratory distress, no accessory muscle use, + wheezing (moderate expiratory wheezing throughout), + pertinent finding (frequent cough. saturating well on 2 liters NC) Cardiovascular: regular rate, rhythm, no murmur Abdomen/GI: normal bowel sounds, non tender, soft Extremities/Musculoskelatal: normal inspection, no calf tenderness, no pedal edema Neurologic/Psych: alert, normal mood/affect, oriented x 3, + pertinent finding (no facial droop. no dysarthria. no focal deficit on gross examination) Skin: normal color, warm/dry Diagnostics - H&P Diagnostics Laboratory Results Results Past 24 Hours Test 11/22/16 13:00 Range/Units White Blood Count 7.07 4.8-10.8 K/uL Red Blood Count 4.40 4.2-5.4 M/uL Hemoglobin 12.8 12.0-16.0 g/dL Hematocrit 40.2 37-47 % Mean Corpuscular Volume 91.4 80-100 fL Mean Corpuscular Hemoglobin 29.1 25-34 pg Mean Corpuscular Hemoglobin Concent 31.8 32-36 g/dl Platelet Count 199 130-400 K/uL Mean Platelet Volume 9.7 7.4-10.4 fL Neutrophils (%) (Auto) 69.9 % Lymphocytes (%) (Auto) 13.0 % Monocytes (%) (Auto) 9.9 % Eosinophils (%) (Auto) 6.1 % Basophils (%) (Auto) 0.7 % Neutrophils # (Auto) 4.94 1.4-6.5 K/uL Lymphocytes # (Auto) 0.92 1.2-3.4 K/uL Monocytes # (Auto) 0.70 0.11-0.59 K/uL Eosinophils # (Auto) 0.43 0-0.5 K/uL Basophils # (Auto) 0.05 0-0.2 K/uL RDW Standard Deviation 48.7 36.4-46.3 fL RDW Coefficient of Variation 14.3 11.5-14.5 % Immature Granulocyte % (Auto) 0.4 % Immature Granulocyte # (Auto) 0.03 0.00-0.02 K/uL D-Dimer 610 0-500 ug/L FEU Sodium Level 143 136-145 mmol/L Potassium Level 4.1 3.5-5.1 mmol/L Chloride Level 103 98-107 mmol/L Carbon Dioxide Level 34 21-32 mmol/L Anion Gap 6.0 3-11 mmol/L Blood Urea Nitrogen 14 7-18 mg/dl Creatinine 1.60 0.60-1.20 mg/dl Est Creatinine Clear Calc Drug Dose 32.0 ml/min Estimated GFR () 34.4 Estimated GFR (Non- 29.7 BUN/Creatinine Ratio 8.5 10-20 Random Glucose 157 70-99 mg/dl Calcium Level 8.8 8.5-10.1 mg/dl Total Bilirubin 0.5 0.2-1 mg/dl Aspartate Amino Transf (AST/SGOT) 18 15-37 U/L Alanine Aminotransferase (ALT/SGPT) 26 12-78 U/L Alkaline Phosphatase 71 45-117 U/L Troponin I 0.020 0-0.045 ng/ml Pro-B-Type Natriuretic Peptide 119 0-1800 pg/ml Total Protein 6.5 6.4-8.2 gm/dl Albumin 3.1 3.4-5.0 gm/dl Globulin 3.4 2.5-4.0 gm/dl Albumin/Globulin Ratio 0.9 0.9-2 Diagnostic Radiology TWO VIEW CHEST IMPRESSION: Cardiomegaly with no acute cardiopulmonary abnormality. CT ANGIOGRAM OF THE CHEST IMPRESSION: 1. There is no evidence of pulmonary embolus in the main, lobar, or segmental pulmonary arteries. 2. There is no airspace consolidation or pleural effusion. EKG sinus tachycardia, rate 106, no ST or T wave abnormality Impression - H&P Impression Assessment and Plan ASTHMA EXACERBATION Presents with dyspnea/ wheezing on minimal exertion, hypoxic to 89% on RA in ER ; not on home O2 Secondary to acute bronchitis CTA chest- negative for PE, no consolidation Will treat with PO doxycycline, IV Solu-medrol 40 mg q8, Duonebs Resume Symbicort; patient instructed to use scheduled rather than PRN Continue supplemental O2 per protocol HISTORY OF HYPERTENSION BP is controlled Not on antihypertensives HX DIASTOLIC DYSFUNCTION Clinically euvolemic DEPRESSION Stable; continue fluoxetine and trazodone HISTORY PE AND DVT Continue Eliquis CKD STAGE III Creat is 1.6; stable from baseline Monitor renal function Avoid nephrotoxins DM TYPE 2 Hold glimepiride during hospitalization Insulin sliding scale coverage Watch for rising blood sugar on IV steroids Check A1c in AM HYPOTHYROIDISM Continue levothyroxine DYSLIPIDEMIA Continue statin DVT PROPHYLAXIS Continue apixaban CODE STATUS Full code per my discussion with the patient. DISPOSITION Admission to med/ surg Follows with Dr. Monsalve for primary care Lives alone procurement services manager consulted for discharge planning Patient seen in collaboration with Dr. Grossman. Please see his addendum. Attending Addendum: The patient was seen and examined Cough with sob worse for the last few days Associated with wheezing No fever,chills O/E No apparent distress HEENT-unremarkable Chest-decreased breath sound with moderate wheezing bilaterally Heart-regular,no murmur Abdomen-benign,no masses,bowel sound present Extremities-trace edema bilaterally Labs and Imaging studies were reviewed Has Asthma Exacerbation ,likely infective Agree with Assessment and plan. Dr Curt Grossman VTE Prophylaxis VTE Risk Assessment Done? Y/N: Yes Risk Level: High Given or contraindicated: Other Anticoagulation Physical Exam (per Admitting): General Appearance: no apparent distress, + obese, + pertinent finding ( pleastant alert 81 y/o female, not in distress, daughter and son at bedside) Head: normocephalic, atraumatic Eyes: normal inspection, PERRL, EOMI ENT: normal ENT inspection, hearing grossly normal, TMs normal, pharynx normal, + pertinent finding (no sinus tenderness) Neck: supple, no JVD, trachea midline Respiratory/Chest: no respiratory distress, no accessory muscle use, + wheezing (moderate expiratory wheezing throughout), + pertinent finding ( frequent cough. saturating well on 2 liters NC) Cardiovascular: regular rate, rhythm, no murmur Abdomen/GI: normal bowel sounds, non tender, soft Extremities/Musculoskelatal: normal inspection, no calf tenderness, no pedal edema Neurologic/Psych: alert, normal mood/affect, oriented x 3, + pertinent finding (no facial droop. no dysarthria. no focal deficit on gross examination) Skin: normal color, warm/dry Hospital Course ASTHMA EXACERBATION Likely infective Presents with dyspnea/ wheezing on minimal exertion, hypoxic to 89% on RA in ER ; not on home O2 Secondary to acute bronchitis CTA chest- negative for PE, no consolidation Started on PO doxycycline, IV Solu-medrol 40 mg q8, Duonebs Resume Symbicort; patient instructed to use scheduled rather than PRN Continue supplemental O2 per protocol Will need 2 steps before discharge Nocturnal pulse Oximetry is negative Getting PT ,PRN cough medicine Will get 2 steps before discharge HISTORY OF HYPERTENSION BP is controlled Not on antihypertensives Minimally high Follow up as an OP to see if she requires any medication HX DIASTOLIC DYSFUNCTION Clinically euvolemic ECHO in June 2016-grade 1 Diastolic dysfunction ,EF 60% No acute issue DEPRESSION Stable; continue fluoxetine and trazodone HISTORY PE AND DVT Continue Eliquis CKD STAGE III Creat is 1.6; stable from baseline Monitor renal function Avoid nephrotoxins Renal function improving DM TYPE 2 Hold glimepiride during hospitalization Insulin sliding scale coverage Watch for rising blood sugar on IV steroids Check A1c in AM-6.8 HYPOTHYROIDISM Continue levothyroxine DYSLIPIDEMIA Continue statin DVT PROPHYLAXIS Continue apixaban CODE STATUS Full code per my discussion with the patient. DISPOSITION Admission to med/ surg Follows with Dr. Monsalve for primary care Lives alone procurement services manager consulted for discharge planning Will make follow up appointment by herself Total time spent on discharge = 35 minutes This includes examination of the patient, discharge planning, medication reconciliation, and communication with other providers. Discharge Instructions Date of Service November 25, 2016. Admission Reason for Admission: Asthma Exacerbation, Hypoxia Discharge Discharge Diagnosis / Problem: Asthma Exacerbation Discharge Goals Goal(s): Prevent Disease Progression Activity Recommendations Activity Limitations: resume your previous activity . Instructions / Follow-Up Instructions / Follow-Up Please make an appointment with your PCP in 1 week. Current Hospital Diet Patient's current hospital diet: Diabetes Type 2 Diet, AHA Diet (Heart Healthy) Discharge Diet Recommended Diet: AHA Diet (Heart Healthy), Diabetes Type 2 Diet Pending Studies Studies pending at discharge: no Laboratory Results Hemoglobin A1c Test 11/23/16 05:19 Range/Units Estimated Average Glucose 148 mg/dl Hemoglobin A1c 6.8 H 4.5-5.6 % Medical Emergencies . Who to Call and When: Medical Emergencies: If at any time you feel your situation is an emergency, please call 911 immediately. . Non-Emergent Contact Non-Emergency issues call your: Primary Care Provider . Past History Medical & Surgical History: (1) Asthma exacerbation (2) Dyspnea (3) Hypoxia (4) Type 2 diabetes mellitus (5) Hypertension (6) CKD (chronic kidney disease), stage III (7) Hypothyroidism (8) History of pulmonary embolism (9) History of DVT (deep vein thrombosis) (10) Status post appendectomy (11) Status post tonsillectomy . "Provider Documentation" section prepared by Ceferino Grossman. . VTE Core Measure Inpt VTE Proph given/why not?: Other Anticoagulation <Electronically signed by Ceferino Grossman M.D.> Additional Copies To Gatito Monsalve M.D.
== END 2016-11-25 16:25 | disposition home or self-care (01) | DRG 202 ==
LOC: ENRESERVDT → ENRESERVTM → EDBD 12:54 → C.EDC 12:55 → C.4E 17:02
PROVIDERS: ADMIT Internal Medicine; ATTEND Internal Medicine
DX: J20.9 Acute bronchitis, unspecified (principal); J45.901 Unspecified asthma with (acute) exacerbation; N18.3 Chronic kidney disease, stage 3 (moderate); F32.9 Major depressive disorder, single episode, unspecified; E78.5 Hyperlipidemia, unspecified; I12.9 Hypertensive chronic kidney disease with stage 1 through stage 4 chronic kidney disease, or unspecified chronic kidney disease; E03.9 Hypothyroidism, unspecified; E11.9 Type 2 diabetes mellitus without complications; R09.02 Hypoxemia; Z86.711 Personal history of pulmonary embolism; Z87.01 Personal history of pneumonia (recurrent)

== ENCOUNTER → 2016-11-27 | Outpatient (CLI) | payer OTHER, MEDICARE ==
[~2016-11-27] MED LIST changes: -ALUM-30 PO; +DXY100 PO; +FLV1 PO; -OXGN; +PRED10TA PO; +PRVHFAIN INH; +RBTUDL5 PO; -VNTHFA/IN INH
[2016-11-27 17:37] LABS: BLOOD UREA NITROGEN 27 mg/dl (7-18); GLUCOSE 181 mg/dl (70-99)
[2016-11-27 17:38] LABS: ALT/SGPT 53 U/L (12-78); AST/SGOT 39 U/L (15-37); BUN/CREATININE RATIO 17.9 (10-20); CALCIUM 8.5 mg/dl (8.5-10.1); CARBON DIOXIDE 32 mmol/L (21-32); CHLORIDE 104 mmol/L (98-107); POTASSIUM 3.7 mmol/L (3.5-5.1); SODIUM 143 mmol/L (136-145)
[2016-11-27 17:49] LABS: ALKALINE PHOSPHATASE 60 U/L (45-117); CHOLESTEROL 173 mg/dl (0-200); CHOLESTEROL/HDL RATIO 2.4; HDL CHOLESTEROL 71 mg/dl; LDL CHOLESTEROL CALCULATED 74 mg/dl; THYROID STIMULATING HORMONE 0.643 uIu/ml (0.300-4.500); TRIGLYCERIDES 142 mg/dl (0-150); VERY LOW DENSITY LIPOPROT CALC 28 mg/dl
--- NOTE | 2016-12-01 14:07 | CODING QUERY MEDICAL NECESSITY ---
SUPPORTING DIAGNOSIS NEEDED Deven MCCLURE, A supporting diagnosis is required for the test/procedure performed on this patient in order for us to be reimbursed by the patient's insurance. Please provide a supporting diagnosis for the following test/procedure listed below next to the test name along with your signature. *If there is no additional diagnosis for this patient that would support the following test/procedure please document that below next to the test/procedure. Test(s)/Procedure(s) that require a supporting diagnosis: * ([id number]) B12 VITAMIN LEVEL DIAGNOSIS: DATE OF SERVICE: 11/27/16 Provider Signature: Date: Thank you [address] [facility] Information Management Once completed, please kindly fax back to [phone] For questions please call [phone]
== END | disposition home or self-care (01) ==
LOC: C.LABPBG 12:59
PROVIDERS: ATTEND Physician Assistant
DX: Z00.00 Encounter for general adult medical examination without abnormal findings (principal); G31.84 Mild cognitive impairment of uncertain or unknown etiology; I10 Essential (primary) hypertension; Z13.21 Encounter for screening for nutritional disorder

== ENCOUNTER → 2016-12-04 | Outpatient (CLI) | payer OTHER, MEDICARE ==
--- NOTE | 2016-12-04 11:21 | DIAGNOSTIC IMAGING REPORT ---
CHEST 2 VIEWS ROUTINE CLINICAL HISTORY: Shortness of breath and cough. Chronic kidney disease. COMPARISON STUDY: Chest radiograph and chest CT November 22, 2016. FINDINGS: Lung volumes are normal. No consolidation to suggest pneumonia. Mild cardiomegaly is unchanged. There is no evidence of pulmonary edema. The appearance of the chest is unchanged. Left basilar opacity favors atelectasis. IMPRESSION: No acute cardiopulmonary findings. Electronically signed by: Tanner Zambrano M.D. 12/04/2016 11:20 AM Dictated Date/Time: 12/04/2016 11:19 AM
--- NOTE | 2016-12-04 11:34 | DIAGNOSTIC IMAGING REPORT ---
CT SCAN OF THE BRAIN WITHOUT IV CONTRAST CLINICAL HISTORY: Cognitive impairment and memory loss. COMPARISON STUDY: CT of the brain dated 07/22/2016. MRI of the brain dated 07/23/2016. TECHNIQUE: Unenhanced axial CT scan of the brain is performed from the vertex to the skull base. CT DOSE: 580.48 mGy.cm FINDINGS: Brain parenchyma: There are age-related involutional changes noting moderate patchy subcortical and periventricular microangiopathic change. There is no hemorrhage, mass effect, or evidence of acute territorial ischemia by CT criteria. Hu-white matter is preserved. No extra-axial fluid collection is seen. There is mineralization present in the basal ganglia. Ventricles, sulci, cisterns: Prominent secondary to involutional change. Intracranial vasculature: There is atherosclerotic calcification of the cavernous carotid and vertebral arteries. Calvarium: Unremarkable. Sinuses and mastoids: Trace mucosal thickening is seen in the maxillary antra. The remaining visualized paranasal sinuses are clear. The mastoid air cells are well pneumatized. Orbits: The bony orbits are grossly intact. IMPRESSION: Senescent changes as above with no hemorrhage, mass effect, or evidence of acute territorial ischemia by CT criteria. No significant change from studies performed in June of 2016. Electronically signed by: Stevie Smith M.D. 12/04/2016 11:33 AM Dictated Date/Time: 12/04/2016 11:29 AM
== END | disposition home or self-care (01) ==
LOC: C.CTS 10:55
PROVIDERS: ATTEND Physician Assistant
DX: R07.89 Other chest pain (principal); G31.84 Mild cognitive impairment of uncertain or unknown etiology

== ENCOUNTER → 2016-12-12 | Outpatient (CLI) | payer OTHER, MEDICARE ==
[~2016-12-12] MED LIST changes: -PRED10TA PO
[2016-12-12 16:42] LABS: BASO % 0.5 %; BASO ABS # 0.04 K/uL (0-0.2); COMPLETE YES; EOS % 3.6 %; HEMATOCRIT 41.5 % (37-47); IG% 0.5 %; LYMPH % 12.6 %; LYMPH ABS # 0.99 K/uL (1.2-3.4); MEAN CELL VOLUME 90.6 fL (80-100); MEAN CORPUSCULAR HEMOGLOBIN 28.6 pg (25-34); MEAN CORPUSCULAR HGB CONC 31.6 g/dl (32-36); MEAN PLATELET VOLUME 9.6 fL (7.4-10.4); MONO % 9.8 %; PLATELET COUNT 202 K/uL (130-400); RED BLOOD COUNT 4.58 M/uL (4.2-5.4); WHITE BLOOD COUNT 7.83 K/uL (4.8-10.8)
[2016-12-12 16:56] LABS: BLOOD UREA NITROGEN 16 mg/dl (7-18); BUN/CREATININE RATIO 9.9 (10-20); CARBON DIOXIDE 33 mmol/L (21-32); CHLORIDE 104 mmol/L (98-107); GLUCOSE 131 mg/dl (70-99); SODIUM 143 mmol/L (136-145)
[2016-12-12 17:08] LABS: ALKALINE PHOSPHATASE 54 U/L (45-117); ALT/SGPT 36 U/L (12-78); AST/SGOT 21 U/L (15-37)
[2016-12-12 18:06] LABS: CALCIUM 8.9 mg/dl (8.5-10.1)
--- NOTE | 2016-12-17 11:27 | CODING QUERY MEDICAL NECESSITY ---
SUPPORTING DIAGNOSIS NEEDED A supporting diagnosis is required for the test/procedure performed on this patient in order for us to be reimbursed by the patient's insurance. Please provide a supporting diagnosis for the following test/procedure listed below next to the test name along with your signature. *If there is no additional diagnosis for this patient that would support the following test/procedure please document that below next to the test/procedure. Test(s)/Procedure(s) that require a supporting diagnosis: * VITAMIN D, 25-HYDROXY DIAGNOSIS: Provider Signature: Date: Thank you [facility] [employer] Information Management Once completed, please kindly fax back to [phone] For questions please call [phone]
== END | disposition home or self-care (01) ==
LOC: C.LABPBG 12:16
PROVIDERS: ATTEND Physician Assistant
DX: R07.9 Chest pain, unspecified (principal); Z13.21 Encounter for screening for nutritional disorder; R53.83 Other fatigue

== ENCOUNTER → 2017-01-01 | Outpatient (CLI) | payer OTHER, MEDICARE ==
[~2017-01-01] MED LIST changes: +REGADENOSON 0.4 MG/5 ML SYR ONE; -TRAZ-119 PO; +TRAZ1TAB16 PO
--- NOTE | 2017-01-01 18:08 | Myocardial Perfusion Study ---
Myocardial Perfusion Study Rpt Myocardial Perfusion Study Rpt Date of Service 01/01/2017 Myocardial Perfusion Study Rpt ONE DAY NUCLEAR MEDICINE LEXISCAN TECHNETIUM 99M MYOCARDIAL PERFUSION SCAN Indication: Chest Pain, Shortness of breath Baseline ECG: Normal sinus rhythm, no ST abnormalities. Ventricular rate 72. Stress ECG: No Lexiscan induced ST changes. No arrhythmias. HR hayley from 72 to 114 representing 82% MPHR. SBP 134/64 - 140/53 Technique: For the stress portion of the study 32 mCi of Technetium 99m Cardiolite IV was injected at 11:30 am on 01/01/2017. 30 minutes following the injection, imaging of the heart was performed in multiple projections. For the rest portion of the study, 11.3 mCi of Technetium 99m Cardiolite was injected IV at 09:35 am. One hour following the injection, imaging of the hear was performed in the same projections. Findings: Rotating raw images were reviewed in detail. Patient unable to raise arms and imaging performed with arms at her sides. Other potential sources of attenuation include a lateral breast shadow more prominent on stress than rest, and minimal gut uptake impacting the inferior imaging border of the heart. No significant extracardiac pathologic uptake. Short axis, vertical long axis and horizontal long axis images were reviewed in detail. No visual TID. Small, mild, reversible perfusion defect involving the apex, apical lateral and apical anterior sellers. SDS 4. Potentially secondary to more prominent breast attenuation on stress. Small LV cavity. EDV 47 ml. Calculated EF 84%. No regional wall motion abnormalities. SUMMARY: 1. Small, mild reversible perfusion defect involving apex, apical anterior and lateral sellers. Suspect defect represents artifact but less likely could represent a small amount of distal LAD distribution ischemia. No high risk stress test findings for adverse cardiac events. 2. Small LV cavity with normal LV function. LVEF 84% with no regional wall motion abnormalities. 3. Non-diagnostic stress ECG due to inability to reach target HR with Lexiscan.
== END | disposition home or self-care (01) ==
LOC: C.NUCL 08:52
PROVIDERS: ATTEND Physician Assistant
DX: I42.9 Cardiomyopathy, unspecified (principal); R06.02 Shortness of breath; R07.9 Chest pain, unspecified

== ENCOUNTER → 2017-01-20 | Outpatient (CLI) | payer OTHER, MEDICARE ==
[~2017-01-20] MED LIST changes: -REGADENOSON 0.4 MG/5 ML SYR ONE
[2017-01-20 17:41] LABS: BLOOD UREA NITROGEN 19 mg/dl (7-18); BUN/CREATININE RATIO 12.3 (10-20); CALCIUM 9.7 mg/dl (8.5-10.1); CARBON DIOXIDE 32 mmol/L (21-32); CHLORIDE 103 mmol/L (98-107); GLUCOSE 146 mg/dl (70-99); PHOSPHORUS 3.1 mg/dl (2.5-4.9); POTASSIUM 4.3 mmol/L (3.5-5.1); SODIUM 140 mmol/L (136-145)
[2017-01-20 17:44] LABS: URINE APPEARANCE TURBID (CLEAR); URINE BILIRUBIN NEG (NEG); URINE COLOR DK YELLOW; URINE EPITHELIAL CELL AUTO >30 /lpf (0-5); URINE NITRITE NEG (NEG); URINE PH 5.5 (4.5-7.5); URINE SPECIFIC GRAVITY 1.026 (1.000-1.030); UROBILINOGEN NEG (NEG)
[2017-01-20 17:47] LABS: MANUAL MICROSCOPIC REQUIRED? NO; REVIEW REQ? YES
[2017-01-20 18:15] LABS: URINE PROTIEN/CREAT RATIO 0.1 (0-0.2)
== END | disposition home or self-care (01) ==
LOC: C.LABPBG 12:22
PROVIDERS: ATTEND Internal Medicine Nephrology
DX: N18.9 Chronic kidney disease, unspecified (principal); E55.9 Vitamin D deficiency, unspecified

== ENCOUNTER → 2017-01-27 | Outpatient (CLI) | payer OTHER, MEDICARE ==
[2017-01-27 12:33] LABS: ESTIMATED AVERAGE GLUCOSE 148 mg/dl; HA1C FLAG Normal (Normal)
== END | disposition home or self-care (01) ==
LOC: C.LABPBG 11:03
PROVIDERS: ATTEND Nurse Practitioner Family
DX: E11.9 Type 2 diabetes mellitus without complications (principal)

== ENCOUNTER → 2017-05-19 | Outpatient (CLI) | payer OTHER, MEDICARE ==
[~2017-05-19] MED LIST changes: +TRAZ-119 PO; -TRAZ1TAB16 PO
[2017-05-19 12:12] LABS: ESTIMATED AVERAGE GLUCOSE 143 mg/dl; HA1C FLAG Normal (Normal)
[2017-05-19 12:21] LABS: HEMATOCRIT 41.9 % (37-47); MEAN CELL VOLUME 92.5 fL (80-100); MEAN CORPUSCULAR HEMOGLOBIN 29.6 pg (25-34); MEAN PLATELET VOLUME 10.3 fL (7.4-10.4); PLATELET COUNT 288 K/uL (130-400); RED BLOOD COUNT 4.53 M/uL (4.2-5.4); WHITE BLOOD COUNT 10.76 K/uL (4.8-10.8)
[2017-05-19 12:29] LABS: ALT/SGPT 50 U/L (12-78); AST/SGOT 40 U/L (15-37); BLOOD UREA NITROGEN 17 mg/dl (7-18); BUN/CREATININE RATIO 10.6 (10-20); CALCIUM 8.9 mg/dl (8.5-10.1); CARBON DIOXIDE 31 mmol/L (21-32); CHLORIDE 101 mmol/L (98-107); GLUCOSE,FASTING 215 mg/dl (70-99); POTASSIUM 4.1 mmol/L (3.5-5.1); SODIUM 140 mmol/L (136-145)
[2017-05-19 12:41] LABS: ALB/GLOB RATIO 0.9 (0.9-2); ALKALINE PHOSPHATASE 79 U/L (45-117)
== END | disposition home or self-care (01) ==
LOC: C.LABPBG 10:32
PROVIDERS: ATTEND Nurse Practitioner Family
DX: E11.9 Type 2 diabetes mellitus without complications (principal); R77.0 Abnormality of albumin; R53.83 Other fatigue; N18.9 Chronic kidney disease, unspecified; E78.5 Hyperlipidemia, unspecified

== ENCOUNTER → 2017-07-21 | Outpatient (CLI) | payer OTHER, MEDICARE ==
[2017-07-21 19:22] LABS: ALBUMIN 3.2 gm/dl (3.4-5.0); BLOOD UREA NITROGEN 14 mg/dl (7-18); CALCIUM 9.4 mg/dl (8.5-10.1); CARBON DIOXIDE 30 mmol/L (21-32); GLUCOSE 109 mg/dl (70-99); PHOSPHORUS 3.3 mg/dl (2.5-4.9); POTASSIUM 4.3 mmol/L (3.5-5.1); SODIUM 140 mmol/L (136-145)
== END | disposition home or self-care (01) ==
LOC: C.LABPBG 14:36
PROVIDERS: ATTEND Internal Medicine Nephrology
DX: N18.9 Chronic kidney disease, unspecified (principal)

== ENCOUNTER 2017-08-15 15:01 | Inpatient (IN) | payer OTHER, MEDICARE ==
[~2017-08-15] VITALS: Ht 160 cm; Wt 102.5 kg
[2017-08-15] MEDS ORDERED: FENTANYL CITRATE INJ 50 MCG/1 ML 2 ML VIAL IV STA ×2 (15:23→17:13)
--- NOTE | 2017-08-15 15:27 | EMERGENCY ROOM VISIT NOTE ---
History Report prepared by Phillip: Bre Jasmine Under the Supervision of: Dr. Aldair Aguillon M.D. 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 HPI limited by baseline cognitive/memory impairment. The patient notes she was trying to get up using her cane but missed it somehow and fell. She denies any LOC, but does not remember hitting the floor because she reports she has been having trouble with her memory lately. She currently lives alone and came into the ED via EMS. She denies lying down on the floor for hours. 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 HPI limited by baseline cognitive/memory impairment. A total of ten systems were reviewed and were otherwise negative. Past Medical & Surgical Medical Problems: (1) Asthma (2) Asthma exacerbation (3) Ataxia (4) Bronchitis (5) CKD (chronic kidney disease), stage III (6) Depression (7) Dyslipidemia (8) History of DVT (deep vein thrombosis) (9) History of pulmonary embolism (10) Humeral fracture (11) Hypertension (12) Hypothyroidism (13) Left humeral fracture (14) Memory loss (15) Pneumonia (16) Type 2 diabetes mellitus Surgical Problems: (1) Status post appendectomy (2) Status post tonsillectomy Family History Alzheimer's disease MOTHER Family history black lung FATHER Social History Smoking Status: Never Smoker Alcohol Use: none Marital Status: Housing Status: lives alone Occupation Status: retired Current/Historical Medications Scheduled Apixaban (Eliquis), 2.5 MG PO BID Buspirone Hcl (Buspirone Hcl), 10 MG PO BID Fluoxetine (Prozac), 4 CAP PO DAILY Folic Acid (Folvite), 1 MG PO DAILY Glimepiride (Glimepiride), 1 TAB PO DAILY Levothyroxine Sodium (Levothyroxine Sodium), 1 TAB PO DAILY Multiple Vitamins W/ Minerals (Ocuvite Lutein), 1 CAP PO DAILY Simvastatin (Zocor), 20 MG PO QPM Trazodone Hcl (Trazodone), 50 MG PO HS Allergies Coded Allergies: Codeine (Verified Allergy, Unknown, unk, 08/15/17) Fluticasone (Verified Allergy, Unknown, unk, 08/15/17) Macrolides and Ketolides (Verified Allergy, Unknown, PT UNSURE, 08/15/17) Salmeterol (Verified Allergy, Unknown, unk, 08/15/17) Sulfa Antibiotics (Verified Allergy, Unknown, PT UNSURE, 08/15/17) Troleandomycin (Verified Allergy, Unknown, unk, 08/15/17) Physical Exam Vital Signs Date Time Temp Pulse Resp B/P (MAP) Pulse Ox O2 Delivery O2 Flow Rate FiO2 08/15/17 18:25 105 20 158/100 97 Nasal Cannula 2.0 08/15/17 17:24 114 08/15/17 17:02 108 20 188/95 95 Room Air 08/15/17 15:12 36.7 76 20 199/102 97 Room Air Physical Exam GENERAL: Awake, alert, uncomfortable-appearing, in no distress HENT: Normocephalic. Oropharynx unremarkable. Dry mucous membranes. Contusion to the left chin. No hematoma, no malocclusion. EYES: Normal conjunctiva. Sclera non-icteric. NECK: Supple. No nuchal rigidity. FROM. No JVD. RESPIRATORY: Clear to auscultation. CARDIAC: Regular rate, normal rhythm. Extremities warm and well perfused. Pulses equal. ABDOMEN: Soft, non-distended. No tenderness to palpation. No rebound or guarding. No masses. RECTAL: Deferred. MUSCULOSKELETAL: Tenderness to the proximal left lateral aspect of the humerus , pain with passive and active range of motion, axillary nerve intact, distal PMS intact, left anterior chest wall tenderness, no crepitus. LOWER EXTREMITIES: Calves are equal size bilaterally and non-tender. No edema. No discoloration. NEURO: Normal sensorium. No sensory or motor deficits noted. SKIN: No rash or jaundice noted. Medical Decision & Procedures ER Provider Diagnostic Interpretation: Radiology results as stated below per my review and radiologist interpretation: L SHOULDER MIN 2 VIEWS ROUTINE CLINICAL HISTORY: Left shoulder pain following fall. COMPARISON: None FINDINGS: There is an acute impacted left humeral neck fracture. Alignment of the left acromioclavicular and glenohumeral joints is anatomic. Severe arthritis of the left glenohumeral joint is noted. IMPRESSION: Acute impacted left humeral neck fracture. Electronically signed by: Tanner Zambrano M.D. 08/15/2017 4:22 PM Dictated Date/Time: 08/15/2017 4:21 PM L HUMERUS MIN 2 VIEWS ROUTINE CLINICAL HISTORY: Left shoulder pain following fall. COMPARISON: None FINDINGS: There is an acute impacted left humeral neck fracture. Alignment of the left glenohumeral and acromioclavicular joints is anatomic. 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 Alignment of the left elbow is anatomic. IMPRESSION: Acute impacted left humeral neck fracture. Electronically signed by: Tanner Zambrano M.D. 08/15/2017 4:23 PM Dictated Date/Time: 08/15/2017 4:[address] OF THE HEAD WITHOUT CONTRAST CLINICAL HISTORY: Headache following fall. Anticoagulation. COMPARISON STUDY: MRI of the brain July 23, [address] December 04, 2016. TECHNIQUE: Helical axial images of the head were obtained without IV contrast. Automated exposure control was utilized for the study. A dose lowering technique was utilized adhering to the principles of ALARA. FINDINGS: No acute intracranial hemorrhage, midline shift or mass effect is present. Ventricular system is stable. Basilar cisterns are patent. There are no extra-axial collections. White matter hypodensity suggests small vessel disease. Exam is mildly compromised by motion artifact but is diagnostic. There is mild bilateral basal ganglia calcification. There is no calvarial fracture. IMPRESSION: 1. No acute intracranial findings. 2. No calvarial fracture. Electronically signed by: Tanner Zambrano M.D. 08/15/2017 5:20 PM Dictated Date/Time: 08/15/2017 5:18 PM CHEST ONE VIEW PORTABLE CLINICAL HISTORY: Fall. COMPARISON STUDY: Chest CT November 22, 2016 and chest radiograph December 04, 2016. FINDINGS: No pneumothorax or pleural effusion is noted. There is mild left basilar opacity which may reflect epicardial fat pad. Cardiomegaly is unchanged. There is no evidence for pulmonary edema. There is an acute impacted left humeral neck fracture which is better depicted on the left shoulder radiographs. IMPRESSION: 1. No acute cardiopulmonary findings. 2. Acute impacted left humeral neck fracture. Electronically signed by: Tanner Zambrano M.D. 08/15/2017 4:21 PM Dictated Date/Time: 08/15/2017 4:[address] OF THE CHEST WITHOUT IV CONTRAST CLINICAL HISTORY: Left chest wall pain following fall. COMPARISON STUDY: Chest CT November 22, 2016 and chest radiograph performed earlier today. TECHNIQUE: Axial images of the chest were obtained without IV contrast. Images were reviewed in the axial, sagittal, and coronal planes. IV contrast was not administered for this examination. A dose lowering technique was utilized adhering to the principles of ALARA. FINDINGS: Note is made of an impacted acute moderately displaced left humeral neck fracture that extends into the left humeral head. There is anterior subluxation of the left humeral head without dislocation. No pneumothorax or pulmonary contusion is noted although lungs are suboptimally assessed due to respiratory motion. Moderate cardiomegaly is noted. There is no pericardial effusion. Thoracic aorta is suboptimally assessed on this exam but there is no mediastinal hematoma. There is no indirect evidence for traumatic thoracic aortic injury. The abdomen and pelvis will be reported separately. No acute rib or thoracic spine fracture is identified. There is no thoracic lymphadenopathy. IMPRESSION: 1. Acute impacted moderately displaced left humeral neck fracture which extends into the humeral head. Anterior subluxation of the left humeral head without dislocation. 2. No additional traumatic findings within the chest. 3. Moderate cardiomegaly. Electronically signed by: Tanner Zambrano M.D. 08/15/2017 5:30 PM Dictated Date/Time: 08/15/2017 5:[address] OF THE CERVICAL SPINE WITHOUT CONTRAST CLINICAL HISTORY: Neck pain following fall. COMPARISON STUDY: No previous studies for comparison. TECHNIQUE: Helical axial images of the cervical spine were obtained without IV contrast. Sagittal and coronal reconstructions were viewed. A dose lowering technique was utilized adhering to the principles of ALARA. FINDINGS: Alignment of the cervical spine is anatomic. The craniocervical junction is intact. There is no acute cervical spine fracture. There is moderate multilevel degenerative disc disease and facet arthrosis. There is no prevertebral edema. IMPRESSION: No acute cervical spine fracture or subluxation. Electronically signed by: Tanner Zambrano M.D. 08/15/2017 5:23 PM Dictated Date/Time: 08/15/2017 5:[address] OF THE ABDOMEN AND PELVIS WITHOUT CONTRAST CLINICAL HISTORY: Left flank pain following fall. COMPARISON STUDY: CT of the abdomen and pelvis February 23, 2015. TECHNIQUE: Axial images of the abdomen and pelvis were obtained without IV contrast. Images were reviewed in the axial, sagittal, and coronal planes. A dose lowering technique was utilized adhering to the principles of ALARA. FINDINGS: Evaluation of the abdomen and pelvis is suboptimal as unenhanced exam. There is no evidence for traumatic injury to the liver, spleen, adrenal glands, kidneys or pancreas on this unenhanced exam. There are gallstones within the gallbladder. No pericholecystic infiltration. No hemoperitoneum or pneumoperitoneum is present. No acute lumbar spine or pelvic fractures identified on this exam. There is no lymphadenopathy. There is no ascites. IMPRESSION: 1. No acute traumatic findings within the abdomen or pelvis on unenhanced exam. 2. Cholelithiasis. Electronically signed by: Tanner Zambrano M.D. 08/15/2017 5:36 PM Dictated Date/Time: 08/15/2017 5:31 PM Laboratory Results 08/15/17 14:27 Red Blood Count 4.51, Mean Corpuscular Volume 91.1, Mean Corpuscular Hemoglobin 30.4, Mean Corpuscular Hemoglobin Concent 33.3, Mean Platelet Volume 9.8, Neutrophils (%) (Auto) 76.2, Lymphocytes (%) (Auto) 10.2, Monocytes (%) (Auto) 10.1, Eosinophils (%) (Auto) 2.4, Basophils (%) (Auto) 0.4, Neutrophils # (Auto ) 5.66, Lymphocytes # (Auto) 0.76, Monocytes # (Auto) 0.75, Eosinophils # (Auto ) 0.18, Basophils # (Auto) 0.03 08/15/17 14:27 Test 08/15/17 14:27 08/15/17 18:30 White Blood Count 7.43 K/uL (4.8-10.8) Red Blood Count 4.51 M/uL (4.2-5.4) Hemoglobin 13.7 g/dL (12.0-16.0) Hematocrit 41.1 % (37-47) Mean Corpuscular Volume 91.1 fL (80-100) Mean Corpuscular Hemoglobin 30.4 pg (25-34) Mean Corpuscular Hemoglobin Concent 33.3 g/dl (32-36) Platelet Count 253 K/uL (130-400) Mean Platelet Volume 9.8 fL (7.4-10.4) Neutrophils (%) (Auto) 76.2 % Lymphocytes (%) (Auto) 10.2 % Monocytes (%) (Auto) 10.1 % Eosinophils (%) (Auto) 2.4 % Basophils (%) (Auto) 0.4 % Neutrophils # (Auto) 5.66 K/uL (1.4-6.5) Lymphocytes # (Auto) 0.76 K/uL (1.2-3.4) Monocytes # (Auto) 0.75 K/uL (0.11-0.59) Eosinophils # (Auto) 0.18 K/uL (0-0.5) Basophils # (Auto) 0.03 K/uL (0-0.2) RDW Standard Deviation 47.4 fL (36.4-46.3) RDW Coefficient of Variation 14.2 % (11.5-14.5) Immature Granulocyte % (Auto) 0.7 % Immature Granulocyte # (Auto) 0.05 K/uL (0.00-0.02) Prothrombin Time 10.7 SECONDS (9.0-12.0) Prothromb Time International Ratio 1.0 (0.9-1.1) Activated Partial Thromboplast Time 24.5 SECONDS (21.0-31.0) Partial Thromboplastin Ratio 0.9 Anion Gap 7.0 mmol/L (3-11) Est Creatinine Clear Calc Drug Dose 34.8 ml/min Estimated GFR () 40.2 Estimated GFR (Non- 34.7 BUN/Creatinine Ratio 13.0 (10-20) Calcium Level 8.9 mg/dl (8.5-10.1) Total Bilirubin 0.5 mg/dl (0.2-1) Direct Bilirubin 0.1 mg/dl (0-0.2) Aspartate Amino Transf (AST/SGOT) 50 U/L (15-37) Alanine Aminotransferase (ALT/SGPT) 58 U/L (12-78) Alkaline Phosphatase 82 U/L (45-117) Troponin I < 0.015 ng/ml (0-0.045) Pro-B-Type Natriuretic Peptide 150 pg/ml (0-1800) Total Protein 6.7 gm/dl (6.4-8.2) Albumin 3.1 gm/dl (3.4-5.0) Lipase 176 U/L (73-393) Influenza Type A Antigen Neg for Influ A (NEG) Influenza Type B Antigen Neg for Influ B (NEG) Laboratory results reviewed by me Medications Administered Medications (Trade) Dose Ordered Sig/Conor Route Start Time Stop Time Status Last Admin Dose Admin Fentanyl Citrate (Fentanyl Inj) 50 mcg NOW STAT IV 08/15/17 15:23 08/15/17 15:33 DC 08/15/17 16:12 50 MCG Fentanyl Citrate (Fentanyl Inj) 50 mcg NOW STAT IV 08/15/17 17:13 08/15/17 17:14 DC 08/15/17 17:21 50 MCG ECG Per My Interpretation Indication: syncope Rate (beats per minute): 86 Rhythm: normal sinus Findings: no acute ischemic change, left axis deviation ED Course 1512: The patient was evaluated in room B9. A complete history and physical exam was performed. 1829: I discussed the patient with Dr. Fong [facility]. He will evaluate the patient for further treatment. Medical Decision I reviewed the patient's past medical history, medications, and the nursing notes as described above. Differential diagnosis: Etiologies such as fracture, dislocation, intra-abdominal, pneumothorax, intrathoracic , intracranial, neurologic, as well as other traumatic pathologies were entertained. The patient is an 82-year-old woman with a past medical history of cognitive/ memory impairment, CKD, DVT on Eliquis since emergency department after a fall out of her recliner the cause of which the patient cannot remember however she is sure she did not hit her head or pass out per hpi. On arrival, the patient is uncomfortable but no acute distress, afebrile stable vital signs. Patient's main complaint is her left shoulder pain. CT head, cervical spine, CT of the chest and abdomen and pelvis negative for acute findings. Plain films of the left shoulder and humerus demonstrate an impacted proximal humerus fracture with extension into the humeral head. Sling ordered. Labs otherwise unremarkable with WBC wnl. Cr at baseline. Given the proximal humerus fracture , while her only traumatic finding and typically non-operative, it impairs the patient's functional status significantly in this elderly patient with memory impairment. Both the patient and her daughter do not feel she would be safe or able to function at home. We attempted to place the patient directly into rehabilitation however there are no beds available at [facility]. Thus the patient will require admission for pain control and PT evaluation and likely placement. Case was d/w Dr. Wilson, [facility] admitting resident, who will admit the patient for further management. Medication Reconcilliation Current Medication List: was personally reviewed by me Blood Pressure Screening Patient's blood pressure: Elevated blood pressure Blood pressure disposition: Referred to PCP Consults Time Called: 1829 Consulting Physician: Dr. Fong, [facility] Returned Call: [phone] We discussed the patients results. He will further evaluate the patient. Impression Primary Impression: Proximal humerus fracture Scribe Attestation The scribe's documentation has been prepared under my direction and personally reviewed by me in its entirety. I confirm that the note above accurately reflects all work, treatment, procedures, and medical decision making performed by me. Departure Information Dispostion Being Evaluated By Hospitalist Referrals Eve Weaver DO (PCP) Patient Instructions [facility]
[2017-08-15] MEDS ORDERED: TRAZ50TA35 PO (15:40)
[2017-08-15] MEDS ORDERED: APIX1TAB PO (15:40)
[2017-08-15] MEDS ORDERED: BUSP-8 PO (15:40)
[2017-08-15] MEDS ORDERED: MULTCAP31 PO (15:40)
[2017-08-15] MEDS ORDERED: FLUO20CA35 PO (15:40)
[2017-08-15] MEDS ORDERED: GLIM2TAB2 PO (15:40)
[2017-08-15] MEDS ORDERED: LEVO88TA3 PO (15:40)
[2017-08-15] MEDS ORDERED: SIMV20TA2 PO (15:40)
[2017-08-15] MEDS ORDERED: FOLI1TAB8 PO (15:40)
[2017-08-15 15:41] LABS: PTT PATIENT 24.5 SECONDS (21.0-31.0)
[2017-08-15 15:46] LABS: BASO % 0.4 %; BASO ABS # 0.03 K/uL (0-0.2); EOS % 2.4 %; EOS ABS # 0.18 K/uL (0-0.5); HEMATOCRIT 41.1 % (37-47); HEMOGLOBIN 13.7 g/dL (12.0-16.0); IG# 0.05 K/uL (0.00-0.02); LYMPH % 10.2 %; LYMPH ABS # 0.76 K/uL (1.2-3.4); MEAN CELL VOLUME 91.1 fL (80-100); MEAN CORPUSCULAR HEMOGLOBIN 30.4 pg (25-34); MEAN CORPUSCULAR HGB CONC 33.3 g/dl (32-36); MEAN PLATELET VOLUME 9.8 fL (7.4-10.4); MONO % 10.1 %; MONO ABS # 0.75 K/uL (0.11-0.59); NEUT % 76.2 %; NEUT ABS # 5.66 K/uL (1.4-6.5); PLATELET COUNT 253 K/uL (130-400); RED CELL DISTRIBUTION WIDTH CV 14.2 % (11.5-14.5); RED CELL DISTRIBUTION WIDTH SD 47.4 fL (36.4-46.3); WHITE BLOOD COUNT 7.43 K/uL (4.8-10.8)
[2017-08-15 15:58] LABS: ALBUMIN 3.1 gm/dl (3.4-5.0); ALT/SGPT 58 U/L (12-78); AST/SGOT 50 U/L (15-37); BLOOD UREA NITROGEN 18 mg/dl (7-18); CALCIUM 8.9 mg/dl (8.5-10.1); CARBON DIOXIDE 30 mmol/L (21-32); GLUCOSE 169 mg/dl (70-99); LIPASE 176 U/L (73-393); POTASSIUM 4.1 mmol/L (3.5-5.1); SODIUM 139 mmol/L (136-145)
[2017-08-15 16:03] LABS: ALKALINE PHOSPHATASE 82 U/L (45-117); TOTAL PROTEIN 6.7 gm/dl (6.4-8.2)
--- NOTE | 2017-08-15 16:22 | DIAGNOSTIC IMAGING REPORT ---
CHEST ONE VIEW PORTABLE CLINICAL HISTORY: Fall. COMPARISON STUDY: Chest CT November 22, 2016 and chest radiograph December 04, 2016. FINDINGS: No pneumothorax or pleural effusion is noted. There is mild left basilar opacity which may reflect epicardial fat pad. Cardiomegaly is unchanged. There is no evidence for pulmonary edema. There is an acute impacted left humeral neck fracture which is better depicted on the left shoulder radiographs. IMPRESSION: 1. No acute cardiopulmonary findings. 2. Acute impacted left humeral neck fracture. Electronically signed by: Tanner Zambrano M.D. 08/15/2017 4:21 PM Dictated Date/Time: 08/15/2017 4:18 PM
--- NOTE | 2017-08-15 16:23 | DIAGNOSTIC IMAGING REPORT ---
L SHOULDER MIN 2 VIEWS ROUTINE CLINICAL HISTORY: Left shoulder pain following fall. COMPARISON: None FINDINGS: There is an acute impacted left humeral neck fracture. Alignment of the left acromioclavicular and glenohumeral joints is anatomic. Severe arthritis of the left glenohumeral joint is noted. IMPRESSION: Acute impacted left humeral neck fracture. Electronically signed by: Tanner Zambrano M.D. 08/15/2017 4:22 PM Dictated Date/Time: 08/15/2017 4:21 PM
--- NOTE | 2017-08-15 16:24 | DIAGNOSTIC IMAGING REPORT ---
L HUMERUS MIN 2 VIEWS ROUTINE CLINICAL HISTORY: Left shoulder pain following fall. COMPARISON: None FINDINGS: There is an acute impacted left humeral neck fracture. Alignment of the left glenohumeral and acromioclavicular joints is anatomic. 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 Alignment of the left elbow is anatomic. IMPRESSION: Acute impacted left humeral neck fracture. Electronically signed by: Tanner Zambrano M.D. 08/15/2017 4:23 PM Dictated Date/Time: 08/15/2017 4:22 PM
--- NOTE | 2017-08-15 17:21 | DIAGNOSTIC IMAGING REPORT ---
CT OF THE HEAD WITHOUT CONTRAST CLINICAL HISTORY: Headache following fall. Anticoagulation. COMPARISON STUDY: MRI of the brain July 23, [address] December 04, 2016. TECHNIQUE: Helical axial images of the head were obtained without IV contrast. Automated exposure control was utilized for the study. A dose lowering technique was utilized adhering to the principles of ALARA. FINDINGS: No acute intracranial hemorrhage, midline shift or mass effect is present. Ventricular system is stable. Basilar cisterns are patent. There are no extra-axial collections. White matter hypodensity suggests small vessel disease. Exam is mildly compromised by motion artifact but is diagnostic. There is mild bilateral basal ganglia calcification. There is no calvarial fracture. IMPRESSION: 1. No acute intracranial findings. 2. No calvarial fracture. Electronically signed by: Tanner Zambrano M.D. 08/15/2017 5:20 PM Dictated Date/Time: 08/15/2017 5:18 PM
--- NOTE | 2017-08-15 17:24 | DIAGNOSTIC IMAGING REPORT ---
CT OF THE CERVICAL SPINE WITHOUT CONTRAST CLINICAL HISTORY: Neck pain following fall. COMPARISON STUDY: No previous studies for comparison. TECHNIQUE: Helical axial images of the cervical spine were obtained without IV contrast. Sagittal and coronal reconstructions were viewed. A dose lowering technique was utilized adhering to the principles of ALARA. FINDINGS: Alignment of the cervical spine is anatomic. The craniocervical junction is intact. There is no acute cervical spine fracture. There is moderate multilevel degenerative disc disease and facet arthrosis. There is no prevertebral edema. IMPRESSION: No acute cervical spine fracture or subluxation. Electronically signed by: Tanner Zambrano M.D. 08/15/2017 5:23 PM Dictated Date/Time: 08/15/2017 5:21 PM
--- NOTE | 2017-08-15 17:31 | DIAGNOSTIC IMAGING REPORT ---
CT OF THE CHEST WITHOUT IV CONTRAST CLINICAL HISTORY: Left chest wall pain following fall. COMPARISON STUDY: Chest CT November 22, 2016 and chest radiograph performed earlier today. TECHNIQUE: Axial images of the chest were obtained without IV contrast. Images were reviewed in the axial, sagittal, and coronal planes. IV contrast was not administered for this examination. A dose lowering technique was utilized adhering to the principles of ALARA. FINDINGS: Note is made of an impacted acute moderately displaced left humeral neck fracture that extends into the left humeral head. There is anterior subluxation of the left humeral head without dislocation. No pneumothorax or pulmonary contusion is noted although lungs are suboptimally assessed due to respiratory motion. Moderate cardiomegaly is noted. There is no pericardial effusion. Thoracic aorta is suboptimally assessed on this exam but there is no mediastinal hematoma. There is no indirect evidence for traumatic thoracic aortic injury. The abdomen and pelvis will be reported separately. No acute rib or thoracic spine fracture is identified. There is no thoracic lymphadenopathy. IMPRESSION: 1. Acute impacted moderately displaced left humeral neck fracture which extends into the humeral head. Anterior subluxation of the left humeral head without dislocation. 2. No additional traumatic findings within the chest. 3. Moderate cardiomegaly. Electronically signed by: Tanner Zambrano M.D. 08/15/2017 5:30 PM Dictated Date/Time: 08/15/2017 5:23 PM
--- NOTE | 2017-08-15 17:38 | DIAGNOSTIC IMAGING REPORT ---
CT OF THE ABDOMEN AND PELVIS WITHOUT CONTRAST CLINICAL HISTORY: Left flank pain following fall. COMPARISON STUDY: CT of the abdomen and pelvis February 23, 2015. TECHNIQUE: Axial images of the abdomen and pelvis were obtained without IV contrast. Images were reviewed in the axial, sagittal, and coronal planes. A dose lowering technique was utilized adhering to the principles of ALARA. FINDINGS: Evaluation of the abdomen and pelvis is suboptimal as unenhanced exam. There is no evidence for traumatic injury to the liver, spleen, adrenal glands, kidneys or pancreas on this unenhanced exam. There are gallstones within the gallbladder. No pericholecystic infiltration. No hemoperitoneum or pneumoperitoneum is present. No acute lumbar spine or pelvic fractures identified on this exam. There is no lymphadenopathy. There is no ascites. IMPRESSION: 1. No acute traumatic findings within the abdomen or pelvis on unenhanced exam. 2. Cholelithiasis. Electronically signed by: Tanner Zambrano M.D. 08/15/2017 5:36 PM Dictated Date/Time: 08/15/2017 5:31 PM
[2017-08-15 19:26] LABS: INFLUENZA B ANTIGEN Neg for Influ B (NEG)
[2017-08-15] MEDS ORDERED: ALUMINUM/MAGNESIUM/SIMETH (MAALOX MAX) 30 ML UDC PO PRN (20:00)
[2017-08-15] MEDS ORDERED: MAGNESIUM HYDROXIDE SUSP 30 ML UDC PO PRN (20:00)
[2017-08-15] MEDS ORDERED: POLYETHYLENE (MIRALAX) 17 GM PACK PO PRN (20:00)
[2017-08-15] MEDS ORDERED: ONDANSETRON INJ 2 MG/ML 2 ML VIAL IV PRN (20:00)
[2017-08-15] MEDS ORDERED: GLUCOSE 10 TABS/TUBE PO PRN (20:15)
[2017-08-15] MEDS ORDERED: GLUCAGON FOR INJ 1 MG VIAL SQ PRN (20:15)
[2017-08-15] MEDS ORDERED: DEXTROSE 50% 50 ML SYR IV PRN (20:15)
[2017-08-15] MEDS ORDERED: GLUCOSE 40% GEL 15 GM TUBE PO PRN (20:15)
[2017-08-15 20:30] VITALS: BP 154/81; PULSE 92; TEMP 37.6; O2SAT 96
--- NOTE | 2017-08-15 20:33 | History and Physical ---
History & Physical Date & Time of Service: Aug 15, 2017 at 20:17 Chief Complaint: Fall/R-Shoulder Pain Primary Care Physician: Eve Weaver DO History of Present Illness Source: patient, family (daughter) [id number] female, resident of [facility], with a past medical history of type 2 diabetes, CKD 3b, hypothyroidism, depression, DVT/PE on chronic anticoagulation, who presents to the emergency room after a fall earlier today. The patient states that she was getting up from her chair to go to the bathroom , and fell because she felt generally weak. Her daughter who accompanies her today states that she seems to be more weak in general for the past 2-3 days. She states that her her mother is been much more active this past week and wonders if she is warm herself out. The patient denies losing consciousness but did hit her chin and has sustained a small contusion. She denies any chest pain, palpitations, lightheadedness or dizziness prior to falling. She's not had any fevers, chills or sweats. She states that she is been eating and drinking at her baseline. She's not had any voiding issues including dysuria, urinary frequency, diarrhea, melena, or GI bleeding. In the emergency room multiple radiographs were done which did show a minimally displaced fractured left humeral neck with impaction. Given that the patient's baseline is fairly independent living and the degree of limitation but humeral fracture and poses, the decision was made to admit the patient for orthopedic recommendations and determine disposition plan for her. Past Medical/Surgical History Medical Problems: (1) Asthma Status: Chronic (2) Ataxia Status: Chronic (3) Bronchitis Status: Resolved (4) CKD (chronic kidney disease), stage III Status: Chronic (5) Depression Status: Chronic (6) Dyslipidemia Status: Chronic (7) History of DVT (deep vein thrombosis) Permanent Comment: LLE 2014 Status: Chronic (8) History of pulmonary embolism Permanent Comment: 2014 Status: Chronic (9) Hypertension Status: Chronic (10) Hypothyroidism Status: Chronic (11) Memory loss Status: Chronic (12) Pneumonia Status: Resolved (13) Type 2 diabetes mellitus Permanent Comment: diet-controlled Status: Chronic Surgical Problems: (1) Status post appendectomy Status: Chronic (2) Status post tonsillectomy Status: Chronic Family History Alzheimer's disease MOTHER Family history black lung FATHER Coronary artery disease Social History Smoking Status: Never Smoker Smokeless Tobacco Use: No Alcohol Use: none Drug Use: none Marital Status: Housing status: lives alone Occupational Status: retired Allergies Coded Allergies: Codeine (Verified Allergy, Unknown, unk, 08/15/17) Fluticasone (Verified Allergy, Unknown, unk, 08/15/17) Macrolides and Ketolides (Verified Allergy, Unknown, PT UNSURE, 08/15/17) Salmeterol (Verified Allergy, Unknown, unk, 08/15/17) Sulfa Antibiotics (Verified Allergy, Unknown, PT UNSURE, 08/15/17) Troleandomycin (Verified Allergy, Unknown, unk, 08/15/17) Home Medications Scheduled Apixaban (Eliquis), 2.5 MG PO BID Buspirone Hcl (Buspirone Hcl), 10 MG PO BID Fluoxetine (Prozac), 4 CAP PO DAILY Folic Acid (Folvite), 1 MG PO DAILY Glimepiride (Glimepiride), 1 TAB PO DAILY Levothyroxine Sodium (Levothyroxine Sodium), 1 TAB PO DAILY Multiple Vitamins W/ Minerals (Ocuvite Lutein), 1 CAP PO DAILY Simvastatin (Zocor), 20 MG PO QPM Trazodone Hcl (Trazodone), 50 MG PO HS Review of Systems A 10 point review of systems was negative unless stated above. Physical Exam Vital Signs Date Time Temp Pulse Resp B/P (MAP) Pulse Ox O2 Delivery O2 Flow Rate FiO2 08/15/17 20:07 80 20 166/71 99 Room Air 3.0 08/15/17 18:25 105 20 158/100 97 Nasal Cannula 2.0 08/15/17 17:24 114 08/15/17 17:02 108 20 188/95 95 Room Air 08/15/17 15:12 36.7 76 20 199/102 97 Room Air General Appearance: WD/WN, no apparent distress Head: normocephalic, + pertinent finding (contusion with small abrasion on the underside of left chin) ENT: pharynx normal, + pertinent finding (mucous members are moist) Neck: supple, no adenopathy, no JVD Respiratory/Chest: chest non-tender, lungs clear, normal breath sounds Cardiovascular: regular rate, rhythm, no gallop, no murmur Abdomen/GI: normal bowel sounds, non tender, soft Back: no CVA tenderness Extremities/Musculoskelatal: no calf tenderness, no pedal edema Neurologic/Psych: alert, normal mood/affect, oriented x 3 Skin: normal color, warm/dry, no rash Lymphatic: no adenopathy Diagnostics Laboratory Results Results Past 24 Hours Test 08/15/17 14:27 08/15/17 18:30 08/15/17 20:02 Range/Units White Blood Count 7.43 4.8-10.8 K/uL Red Blood Count 4.51 4.2-5.4 M/uL Hemoglobin 13.7 12.0-16.0 g/dL Hematocrit 41.1 37-47 % Mean Corpuscular Volume 91.1 80-100 fL Mean Corpuscular Hemoglobin 30.4 25-34 pg Mean Corpuscular Hemoglobin Concent 33.3 32-36 g/dl Platelet Count 253 130-400 K/uL Mean Platelet Volume 9.8 7.4-10.4 fL Neutrophils (%) (Auto) 76.2 % Lymphocytes (%) (Auto) 10.2 % Monocytes (%) (Auto) 10.1 % Eosinophils (%) (Auto) 2.4 % Basophils (%) (Auto) 0.4 % Neutrophils # (Auto) 5.66 1.4-6.5 K/uL Lymphocytes # (Auto) 0.76 1.2-3.4 K/uL Monocytes # (Auto) 0.75 0.11-0.59 K/uL Eosinophils # (Auto) 0.18 0-0.5 K/uL Basophils # (Auto) 0.03 0-0.2 K/uL RDW Standard Deviation 47.4 36.4-46.3 fL RDW Coefficient of Variation 14.2 11.5-14.5 % Immature Granulocyte % (Auto) 0.7 % Immature Granulocyte # (Auto) 0.05 0.00-0.02 K/uL Prothrombin Time 10.7 9.0-12.0 SECONDS Prothromb Time International Ratio 1.0 0.9-1.1 Activated Partial Thromboplast Time 24.5 21.0-31.0 SECONDS Partial Thromboplastin Ratio 0.9 Sodium Level 139 136-145 mmol/L Potassium Level 4.1 3.5-5.1 mmol/L Chloride Level 102 98-107 mmol/L Carbon Dioxide Level 30 21-32 mmol/L Anion Gap 7.0 3-11 mmol/L Blood Urea Nitrogen 18 7-18 mg/dl Creatinine 1.40 0.60-1.20 mg/dl Est Creatinine Clear Calc Drug Dose 34.8 ml/min Estimated GFR () 40.2 Estimated GFR (Non- 34.7 BUN/Creatinine Ratio 13.0 10-20 Random Glucose 169 70-99 mg/dl Calcium Level 8.9 8.5-10.1 mg/dl Total Bilirubin 0.5 0.2-1 mg/dl Direct Bilirubin 0.1 0-0.2 mg/dl Aspartate Amino Transf (AST/SGOT) 50 15-37 U/L Alanine Aminotransferase (ALT/SGPT) 58 12-78 U/L Alkaline Phosphatase 82 45-117 U/L Troponin I < 0.015 0-0.045 ng/ml Pro-B-Type Natriuretic Peptide 150 0-1800 pg/ml Total Protein 6.7 6.4-8.2 gm/dl Albumin 3.1 3.4-5.0 gm/dl Lipase 176 73-393 U/L Influenza Type A Antigen Neg for Influ A NEG Influenza Type B Antigen Neg for Influ B NEG Diagnostic Radiology L SHOULDER MIN 2 VIEWS ROUTINE CLINICAL HISTORY: Left shoulder pain following fall. COMPARISON: None FINDINGS: There is an acute impacted left humeral neck fracture. Alignment of the left acromioclavicular and glenohumeral joints is anatomic. Severe arthritis of the left glenohumeral joint is noted. IMPRESSION: Acute impacted left humeral neck fracture. Electronically signed by: Tanner Zambrano M.D. 08/15/2017 4:22 PM Dictated Date/Time: 08/15/2017 4:[address] OF THE CHEST WITHOUT IV CONTRAST CLINICAL HISTORY: Left chest wall pain following fall. COMPARISON STUDY: Chest CT November 22, 2016 and chest radiograph performed earlier today. TECHNIQUE: Axial images of the chest were obtained without IV contrast. Images were reviewed in the axial, sagittal, and coronal planes. IV contrast was not administered for this examination. A dose lowering technique was utilized adhering to the principles of ALARA. FINDINGS: Note is made of an impacted acute moderately displaced left humeral neck fracture that extends into the left humeral head. There is anterior subluxation of the left humeral head without dislocation. No pneumothorax or pulmonary contusion is noted although lungs are suboptimally assessed due to respiratory motion. Moderate cardiomegaly is noted. There is no pericardial effusion. Thoracic aorta is suboptimally assessed on this exam but there is no mediastinal hematoma. There is no indirect evidence for traumatic thoracic aortic injury. The abdomen and pelvis will be reported separately. No acute rib or thoracic spine fracture is identified. There is no thoracic lymphadenopathy. IMPRESSION: 1. Acute impacted moderately displaced left humeral neck fracture which extends into the humeral head. Anterior subluxation of the left humeral head without dislocation. 2. No additional traumatic findings within the chest. 3. Moderate cardiomegaly. Electronically signed by: Tanner Zambrano M.D. 08/15/2017 5:30 PM Dictated Date/Time: 08/15/2017 5:23 PM The status of this report is Signed. Draft = Not yet reviewed or approved by Radiologist. Signed = Reviewed and approved by Radiologist. EKG Normal sinus rhythm Impression Assessment and Plan 82-year-old female, with type 2 diabetes, hypothyroidism, depression, CKD 3b, and history of DVT/PE, presents with mechanical fall secondary to weakness resulting in a impacted left humeral fracture. The plan for her is as follows: Left impacted humeral fracture - Given fall from level height this is considered fragility fracture. Will be started on Vit D 800 IU daily + Calcium 1200 mg daily Recommend day to evaluate need for DEXA scanning for osteoporosis - Orthopedic surgery consulted: I spoke with Dr. Sarkis Owens from the [facility] group, who reviewed the images with me. He will evaluate her tomorrow. Until then we will pursue conservative management - Apply shoulder sling -Morphine 4 mg every 4 hours for pain Fall Secondary to Weakness - Rule out infective etiology: Check UA; chest x-ray appears normal - Based on history, the suspicion for cardiogenic etiology for fall. Therefore we will manage her without telemetry monitoring at this time - No evidence of anemia - No evidence of worsening renal function - Will check B12, folate, Vit D, TSH and Mg levels in addition to routine electrolytes with AM labs - OT and PT evaluations pending CKD 3b - Baseline creatinine 1.5-1.7; baseline eGFR 30s - Patient current at baseline - Monitor hydration status; avoid nephrotoxins Type 2 diabetes mellitus hold - Hold glyburide - Before meals and at bedtime Accu-Cheks - Insulin aspart - We'll check a hemoglobin A1c level Hypothyroidism - Continue levothyroxine Depression - Continue buspirone - Continue fluoxetine Insomnia - Continue trazodone History of DVT PE - On a course chronically - At this point there is no plan for operative management; will continue DVT Prophylaxis - SCD Knee, RUSSELL Martinez - Eliquis Code Status - Level I Full Code Disposition - Med/Surg - OT and PT evaluations Resident Physician Supervision Note: Pt evaluated independently. I discussed the case with the resident and agree with the findings and plan as documented in the note. Any exceptions or clarifications are listed here: 82 y/o F Hx DM II, hypothyroidism, depression, CKD III, Hx DVT/PE - suffered a mechanical fall onto her L side sustaining a humeral fracture. Per ortho she is not likely to require surgery. OE AAO x 3 S1,2 R CTAB NT, ND No CCE R arm in sling P: Pt will require rehab as she is unlikely to be able to manage indpendently with her current fracture - ortho, PT/OT to evaluate - agree with Vut D and eventual Dexa Will cont her Eliquis as surgery is not likely Placed on SS insulin coverage Cont Synthroid Documented By: Mal Barr Level of Care Med/Surg Resuscitation Status FULL RESUSCITATION VTE Prophylaxis VTE Risk Assessment Done? Y/N: Yes Risk Level: Moderate Given or contraindicated: Other Anticoagulation (Eliquis)
[2017-08-15] MEDS: INSULIN ASPART 100 UNITS/ML 3 ML PEN SC SCH (21:00)
[2017-08-15] MEDS ORDERED: IV FLUIDS COMPLETED PRN (21:15)
[2017-08-15 21:17] VITALS: BP 128/79; PULSE 78; TEMP 37.8; O2SAT 95
[2017-08-15 21:19] VITALS: BP 128/79; PULSE 78; TEMP 37.8; Ht 160 cm; Wt 102.5 kg
[2017-08-15] MEDS: MoRPHine SULFATE 4 MG/ML 1 ML CARP\\VIAL IV PRN (21:31)
[2017-08-15] MEDS: SIMVASTATIN 20 MG TAB PO SCH (21:56)
[2017-08-15] MEDS: APIXABAN 2.5 MG TAB PO SCH (21:56)
[2017-08-15] MEDS: TRAZODONE HCL 50 MG TAB PO SCH (21:56)
[2017-08-15 23:23] VITALS: BP 112/71; PULSE 86; TEMP 37.7; O2SAT 95
[2017-08-16 00:01] VITALS: TEMP 36.8
[2017-08-16] MEDS: MoRPHine SULFATE 4 MG/ML 1 ML CARP\\VIAL IV PRN ×2 (05:06→11:17)
[2017-08-16 05:42] LABS: HEMATOCRIT 38.3 % (37-47); HEMOGLOBIN 12.5 g/dL (12.0-16.0); MEAN CELL VOLUME 92.7 fL (80-100); MEAN CORPUSCULAR HEMOGLOBIN 30.3 pg (25-34); MEAN CORPUSCULAR HGB CONC 32.6 g/dl (32-36); MEAN PLATELET VOLUME 9.2 fL (7.4-10.4); PLATELET COUNT 218 K/uL (130-400); RED CELL DISTRIBUTION WIDTH CV 14.2 % (11.5-14.5); RED CELL DISTRIBUTION WIDTH SD 48.2 fL (36.4-46.3)
[2017-08-16] MEDS: LEVOTHYROXINE 88 MCG TAB PO SCH (05:53)
[2017-08-16 05:54] LABS: CALCIUM 8.6 mg/dl (8.5-10.1); CREATININE 1.37 mg/dl (0.60-1.20); POTASSIUM 3.9 mmol/L (3.5-5.1)
[2017-08-16 07:13] VITALS: BP 108/69; PULSE 76; TEMP 37.5; O2SAT 95
[2017-08-16] MEDS: APIXABAN 2.5 MG TAB PO SCH ×2 (08:59→21:05)
[2017-08-16] MEDS: CEROVITE ADV FORMULA TAB PO SCH (08:59)
[2017-08-16] MEDS: CALCIUM 600MG + VIT D 400 IU TAB PO SCH ×2 (08:59→21:06)
[2017-08-16] MEDS: FLUOXETINE HCL 20 MG CAP PO SCH (09:00)
[2017-08-16] MEDS: INSULIN ASPART 100 UNITS/ML 3 ML PEN SC SCH ×4 (09:01→21:00)
[2017-08-16] MEDS ORDERED: MAGNESIUM SULFATE 1GM / D5W 1 GM in PREMIXED IN D5W 100 ML IV SCH (09:30)
[2017-08-16] MEDS: ACETAMINOPHEN 325 MG TAB PO PRN (09:50)
--- NOTE | 2017-08-16 10:01 | Family Medicine Progress Note ---
Progress Note Date of Service Aug 16, 2017. Subjective Pt evaluation today including: conversation w/ patient Pain: left arm pain Voiding: no voiding problems Reports pain in the left arm Otherwise doing okay. Fatigued Constitutional: No fever, No chills Eyes: No worsening of vision ENT: No hearing loss Respiratory: No cough, No sputum, No wheezing, No shortness of breath, No dyspnea on exertion Cardiovascular: No chest pain Abdomen: No pain, No nausea, No vomiting, No diarrhea Medications Medications (Trade) Dose Ordered Sig/Conor Route Start Time Stop Time Status Last Admin Dose Admin Fentanyl Citrate (Fentanyl Inj) 50 mcg NOW STAT IV 08/15/17 15:23 08/15/17 15:33 DC 08/15/17 16:12 50 MCG Fentanyl Citrate (Fentanyl Inj) 50 mcg NOW STAT IV 08/15/17 17:13 08/15/17 17:14 DC 08/15/17 17:21 50 MCG Acetaminophen (Tylenol Tab) 650 mg Q4H PRN PO 08/15/17 20:00 09/14/17 19:59 08/16/17 09:50 650 MG Morphine Sulfate (MoRPHine SULFATE INJ) 4 mg Q4H PRN IV 08/15/17 20:00 08/29/17 19:59 08/16/17 05:06 4 MG Apixaban (Eliquis Tab) 2.5 mg BID PO 08/15/17 21:00 09/14/17 20:59 Future Hold 08/16/17 08:59 2.5 MG Fluoxetine HCl (Prozac Cap) 80 mg DAILY PO 08/16/17 09:00 09/15/17 08:59 08/16/17 09:00 80 MG Folic Acid (Folvite Tab) 1 mg DAILY PO 08/16/17 09:00 09/15/17 08:59 08/16/17 08:59 1 MG Levothyroxine Sodium (Synthroid Tab) 88 mcg DAILYBB PO 08/16/17 06:00 09/15/17 06:59 08/16/17 05:53 88 MCG Simvastatin (Zocor Tab) 20 mg QPM PO 08/15/17 21:00 09/14/17 20:59 08/15/17 21:56 20 MG Trazodone HCl (Desyrel Tab) 50 mg HS PO 08/15/17 21:00 09/14/17 20:59 08/15/17 21:56 50 MG Buspirone HCl (Buspar Tab) 10 mg BID PO 08/15/17 21:00 09/14/17 20:59 08/16/17 08:59 10 MG Multivitamins/ Minerals (Multivitamin W/ Minerals Tab) 1 tab QAM PO 08/16/17 09:00 09/15/17 08:59 08/16/17 08:59 1 TAB Insulin Aspart (novoLOG ASPART) SLIDING SCALE G... ACHS SC 08/15/17 21:00 09/14/17 20:59 08/16/17 09:01 3 UNITS Calcium/Vitamin D (Caltrate Plus Tab) 1 tab BID PO 08/16/17 09:00 09/15/17 08:59 08/16/17 08:59 1 TAB Objective Vital Signs Vital Signs Past 12 Hours Date Time Temp Pulse Resp B/P (MAP) Pulse Ox O2 Delivery O2 Flow Rate FiO2 08/16/17 08:27 Nasal Cannula 1.0 08/16/17 07:13 37.5 76 19 108/69 (82) 95 Nasal Cannula 2.0 08/16/17 00:01 36.8 08/15/17 23:45 Room Air 08/15/17 23:23 37.7 86 16 112/71 (85) 95 Nasal Cannula 2.0 Physical Exam General Appearance: no apparent distress, + pertinent finding (bruising noted on chin and under chin) Eyes: PERRL, EOMI ENT: hearing grossly normal Neck: supple, no JVD Respiratory/Chest: lungs clear, normal breath sounds, no respiratory distress, no accessory muscle use Cardiovascular: regular rate, rhythm, no edema Abdomen: normal bowel sounds, non tender, soft Extremities: + pertinent finding (left arm in a sling, limited ROM) Neurologic/Psychiatric: alert, normal mood/affect, oriented x 3, + motor weakness (left arm) Laboratory Results Last 24 Hours Test 08/15/17 14:27 08/15/17 18:30 08/15/17 20:02 08/15/17 21:43 White Blood Count 7.43 K/uL Red Blood Count 4.51 M/uL Hemoglobin 13.7 g/dL Hematocrit 41.1 % Mean Corpuscular Volume 91.1 fL Mean Corpuscular Hemoglobin 30.4 pg Mean Corpuscular Hemoglobin Concent 33.3 g/dl Platelet Count 253 K/uL Mean Platelet Volume 9.8 fL Neutrophils (%) (Auto) 76.2 % Lymphocytes (%) (Auto) 10.2 % Monocytes (%) (Auto) 10.1 % Eosinophils (%) (Auto) 2.4 % Basophils (%) (Auto) 0.4 % Neutrophils # (Auto) 5.66 K/uL Lymphocytes # (Auto) 0.76 K/uL Monocytes # (Auto) 0.75 K/uL Eosinophils # (Auto) 0.18 K/uL Basophils # (Auto) 0.03 K/uL RDW Standard Deviation 47.4 fL RDW Coefficient of Variation 14.2 % Immature Granulocyte % (Auto) 0.7 % Immature Granulocyte # (Auto) 0.05 K/uL Prothrombin Time 10.7 SECONDS Prothromb Time International Ratio 1.0 Activated Partial Thromboplast Time 24.5 SECONDS Partial Thromboplastin Ratio 0.9 Sodium Level 139 mmol/L Potassium Level 4.1 mmol/L Chloride Level 102 mmol/L Carbon Dioxide Level 30 mmol/L Anion Gap 7.0 mmol/L Blood Urea Nitrogen 18 mg/dl Creatinine 1.40 mg/dl Est Creatinine Clear Calc Drug Dose 34.8 ml/min Estimated GFR () 40.2 Estimated GFR (Non- 34.7 BUN/Creatinine Ratio 13.0 Random Glucose 169 mg/dl Calcium Level 8.9 mg/dl Total Bilirubin 0.5 mg/dl Direct Bilirubin 0.1 mg/dl Aspartate Amino Transf (AST/SGOT) 50 U/L Alanine Aminotransferase (ALT/SGPT) 58 U/L Alkaline Phosphatase 82 U/L Troponin I < 0.015 ng/ml Pro-B-Type Natriuretic Peptide 150 pg/ml Total Protein 6.7 gm/dl Albumin 3.1 gm/dl Lipase 176 U/L Influenza Type A Antigen Neg for Influ A Influenza Type B Antigen Neg for Influ B Urine Color YELLOW Urine Appearance CLEAR Urine pH 7.0 Urine Specific [place] 1.018 Urine Protein NEG Urine Glucose (UA) NEG Urine Ketones NEG Urine Occult Blood NEG Urine Nitrite NEG Urine Bilirubin NEG Urine Urobilinogen NEG Urine Leukocyte Esterase NEG Bedside Glucose 172 mg/dl Test 08/16/17 05:20 08/16/17 07:59 White Blood Count 9.50 K/uL Red Blood Count 4.13 M/uL Hemoglobin 12.5 g/dL Hematocrit 38.3 % Mean Corpuscular Volume 92.7 fL Mean Corpuscular Hemoglobin 30.3 pg Mean Corpuscular Hemoglobin Concent 32.6 g/dl RDW Standard Deviation 48.2 fL RDW Coefficient of Variation 14.2 % Platelet Count 218 K/uL Mean Platelet Volume 9.2 fL Sodium Level 138 mmol/L Potassium Level 3.9 mmol/L Chloride Level 103 mmol/L Carbon Dioxide Level 29 mmol/L Anion Gap 6.0 mmol/L Blood Urea Nitrogen 20 mg/dl Creatinine 1.37 mg/dl Est Creatinine Clear Calc Drug Dose 35.6 ml/min Estimated GFR () 41.2 Estimated GFR (Non- 35.6 BUN/Creatinine Ratio 14.3 Random Glucose 176 mg/dl Calcium Level 8.6 mg/dl Magnesium Level 1.6 mg/dl Vitamin B12 Level 475 pg/mL 25-Hydroxy Vitamin D Total 28.8 ng/ml Folate 20.51 ng/mL Thyroid Stimulating Hormone (TSH) 1.120 uIu/ml Bedside Glucose 149 mg/dl Assessment and Plan 82-year-old female, with type 2 diabetes, hypothyroidism, depression, CKD 3b, and history of DVT/PE, presents with mechanical fall secondary to weakness resulting in a impacted left humeral fracture. The plan for her is as follows: Left impacted humeral fracture - Given fall from level height this is considered fragility fracture. Will be started on Vit D 800 IU daily + Calcium 1200 mg daily DEXA scan outpatient - Orthopedic surgery consulted: - Conservative management until further reccs from ortho - Apply shoulder sling -Morphine 4 mg every 4 hours for pain, tylenol Fall Secondary to Weakness - No evidence of infectious etiology - Based on history, the suspicion is low for cardiogenic etiology for fall. - No evidence of anemia - No evidence of worsening renal function - Low Vitamin D, Normal B12/folate and tsh - Hypomag- replaced - OT and PT evaluations pending CKD 3b - Baseline creatinine 1.5-1.7; baseline eGFR 30s - Patient current at baseline - Slightly dehydrated- will start maintenance IV fluids Type 2 diabetes mellitus - Hold glyburide - Before meals and at bedtime Accu-Cheks - Insulin aspart - We'll check a hemoglobin A1c level Hypothyroidism - Continue levothyroxine Depression - Continue buspirone - Continue fluoxetine Insomnia - Continue trazodone History of DVT PE - On elaquis chronically- hold DVT Prophylaxis - SCD Knee, RUSSELL Martinez - Eliquis held Code Status - Level I Full Code Disposition - Med/Surg - OT and PT evaluations - will need placement at SNF
--- NOTE | 2017-08-16 11:14 | Medical Consult ---
Consultation Note Date of Service Aug 16, 2017. Consultation Note Consult called by: Dr. Wilson & Dr. Pérez. CHIEF COMPLAINT: Left proximal humerus fracture. HISTORY OF PRESENT ILLNESS: The patient is a pleasant 82-year-old female, right- hand-dominant, from within the [facility] independently living who presented to the emergency room last evening after a fall. She is a poor historian due to previous blood clots. Much of her information is gathered from the medical record. She is having pain in the left shoulder that will radiate down the arm and up her neck. She has been placed in a sling. Past medical history: Hypothyroidism, type 2 diabetes, depression, DVT/PE on chronic anticoagulation, CKD IIIB, asthma, ataxia, HTN, dyslipidemia, pneumonia , memory loss. Past surgical history: Appendectomy and tonsillectomy. MEDICATIONS: Obtained from her H&P. Scheduled Apixaban (Eliquis), 2.5 MG PO BID Buspirone Hcl (Buspirone Hcl), 10 MG PO BID Fluoxetine (Prozac), 4 CAP PO DAILY Folic Acid (Folvite), 1 MG PO DAILY Glimepiride (Glimepiride), 1 TAB PO DAILY Levothyroxine Sodium (Levothyroxine Sodium), 1 TAB PO DAILY Multiple Vitamins W/ Minerals (Ocuvite Lutein), 1 CAP PO DAILY Simvastatin (Zocor), 20 MG PO QPM Trazodone Hcl (Trazodone), 50 MG PO HS. ALLERGIES: Obtained from her H&P Codeine (Verified Allergy, Unknown, unk, 08/15/17) Fluticasone (Verified Allergy, Unknown, unk, 08/15/17) Macrolides and Ketolides (Verified Allergy, Unknown, PT UNSURE, 08/15/17) Salmeterol (Verified Allergy, Unknown, unk, 08/15/17) Sulfa Antibiotics (Verified Allergy, Unknown, PT UNSURE, 08/15/17) Troleandomycin (Verified Allergy, Unknown, unk, 08/15/17). FAMILY HISTORY: Alzheimer's, black long, CAD. SOCIAL HISTORY: Denies smoking, alcohol, and chemical dependency. She lives alone. She is and is retired. REVIEW OF SYSTEMS: A 10-point review of systems is noted in the shared emergency room medical record. PHYSICAL EXAM: Patient is in no acute distress breathing easily at 20 breaths per minute in her hospital bed. They have an appropriate mood and affect. She admits to having difficulty recalling many facts. They weigh 102.5 kg and are 160 cm tall. Focusing on her left upper extremity: She has 2+ radial pulse. Her sensation to light touch is intact distally. Her motor to her median, radial, ulnar, AIN , and PIN are intact. She does have swelling about the shoulder. She is tender to palpation about the proximal humerus. RADIOGRAPHS: Nondisplaced fracture of the proximal humerus. Evidence of mild degenerative changes in the glenohumeral and AC joint's. CT chest: Focusing on the left proximal humerus, there is only a few cuts, shows a valgus impacted fracture. IMPRESSION: Nondisplaced left proximal humerus fracture, closed, initial visit in the hospital. PLAN: After lengthy discussion with the patient today regarding my above clinical findings, as well as reviewing her imaging, she will be treated conservatively with a sling while out of bed. Pain control will utilize pain medicine and ice. She may work on range of motion of her elbow forearm and wrist. In 2 weeks, gradual work on range of motion of the shoulder with pendulums will be started. She will need to be evaluated by occupational therapy and physical therapy to determine a safe disposition. She will follow- up as an outpatient with Dr. Sarkis Owens at [facility] medicine in 2 weeks. Please call [phone] to schedule an appointment. Thank you for allowing me to participate in this patient's care.
[2017-08-16] MEDS: SODIUM CHLORIDE 0.9% 1000ML 1,000 ML IV SCH ×2 (11:16→23:42)
[2017-08-16 15:14] VITALS: BP 102/66; PULSE 62; TEMP 36.9; O2SAT 92
[2017-08-16] MEDS ORDERED: PNEUMOCOCCAL ADMINISTRATION CHARGE ONE (16:45)
[2017-08-16] MEDS ORDERED: PNEUMOCOCCAL POLYSACCHARIDES 25 MCG/0.5 ML VIAL/SYR IM. ONE (16:45)
[2017-08-16] MEDS ORDERED: INFLUENZA ADMINISTRATION CHARGE ONE (17:00)
[2017-08-16] MEDS ORDERED: INFLUENZA VIRUS QUAD VACCINE 0.5 ML SYR IM. ONE (17:00)
[2017-08-16] MEDS ORDERED: OXYCODONE/ACETAMINOPHEN 5-325 TAB PO PRN (19:00)
[2017-08-16] MEDS: DOCUSATE SODIUM 100 MG CAP PO SCH (21:04)
[2017-08-16] MEDS: TRAZODONE HCL 50 MG TAB PO SCH (21:05)
[2017-08-16] MEDS: SIMVASTATIN 20 MG TAB PO SCH (21:07)
[2017-08-17 00:01] VITALS: BP 126/73; PULSE 70; TEMP 36.8; O2SAT 96
[2017-08-17] MEDS: LEVOTHYROXINE 88 MCG TAB PO SCH (05:42)
[2017-08-17 06:47] LABS: HEMATOCRIT 33.7 % (37-47); HEMOGLOBIN 11.1 g/dL (12.0-16.0); MEAN CELL VOLUME 93.4 fL (80-100); MEAN CORPUSCULAR HEMOGLOBIN 30.7 pg (25-34); MEAN CORPUSCULAR HGB CONC 32.9 g/dl (32-36); PLATELET COUNT 157 K/uL (130-400); WHITE BLOOD COUNT 7.19 K/uL (4.8-10.8)
[2017-08-17 07:19] LABS: CALCIUM 8.6 mg/dl (8.5-10.1); CREATININE 1.42 mg/dl (0.60-1.20); POTASSIUM 3.9 mmol/L (3.5-5.1)
[2017-08-17 07:20] VITALS: BP 128/53; PULSE 63; TEMP 37; O2SAT 98
[2017-08-17 08:00] LABS: HEMOGLOBIN A1C 6.5 % (4.5-5.6)
--- NOTE | 2017-08-17 08:38 | Orthopedic Progress Note ---
Orthopedic Progress Note Date of Service Aug 17, 2017. Subjective Additional Notes: Doing okay, sitting out of bed in chair. Sling on left arm. Objective A&O x3 Sling on left arm. No distal edema, tolerates gentle ROM of left hand, fingers , wrist and forearm. Distal pulses 1+, distal sensation normal Date Time Temp Pulse Resp B/P (MAP) Pulse Ox O2 Delivery O2 Flow Rate FiO2 08/17/17 07:20 98 Nasal Cannula 2.0 08/17/17 07:20 37.0 63 19 128/53 (78) 98 Nasal Cannula 2.0 08/17/17 00:01 36.8 70 16 126/73 (90) 96 Nasal Cannula 1.0 08/17/17 00:00 Nasal Cannula 1.0 08/16/17 16:00 Nasal Cannula 1.0 08/16/17 15:14 36.9 62 18 102/66 (78) 92 Nasal Cannula 1.0 Laboratory Results 24 Hours: Test 08/17/17 06:31 Hematocrit 33.7 % Hemoglobin 11.1 g/dL Assessment & Plan Assessment: nondisplaced left humerus fracture - closed Plan: Treat fracture conservatively. Treat in sling. Keep on when out of bed. NWB LUE Gentle ROM left hand, fingers, wrist as tolerated. Sleep in upright position for comfort. Ice to left shoulder as needed for pain/swelling. Findings discussed with Dr. Owens. Will sign off. Follow up with Dr. Owens in 2 weeks as scheduled.
[2017-08-17] MEDS: FLUOXETINE HCL 20 MG CAP PO SCH (08:41)
[2017-08-17] MEDS: APIXABAN 2.5 MG TAB PO SCH ×2 (08:41→21:23)
[2017-08-17] MEDS: CEROVITE ADV FORMULA TAB PO SCH (08:42)
[2017-08-17] MEDS: CALCIUM 600MG + VIT D 400 IU TAB PO SCH ×2 (08:42→21:22)
[2017-08-17] MEDS: DOCUSATE SODIUM 100 MG CAP PO SCH ×2 (08:42→21:23)
[2017-08-17] MEDS: INSULIN ASPART 100 UNITS/ML 3 ML PEN SC SCH ×4 (08:46→21:39)
[2017-08-17 09:43] VITALS: BP 134/63; PULSE 76; O2SAT 91
--- NOTE | 2017-08-17 10:53 | Consultant Recommendations ---
Training Officer Recommendations Date of Service Aug 17, 2017. Training Officer Recommendations Ice to left shoulder as needed for pain and swelling Sling left arm when out of bed/ambulating. May remove when in bed and sitting in chair for comfort. May do range of motion left hand, fingers, wrist and forearm as tolerated to prevent stiffness. Non weight bearing left shoulder No movement of left shoulder, can work on elbow, forearm, wrist, and hand range of motion. No lifting more than cup of coffee. Elevate head of bed/sleep upright for comfort. Follow up with Dr. Owens/Chandrika Li on 08/31/17 at 11:00 AM. Please call [phone] with any questions, concerns or need to reschedule appointment.
[2017-08-17] MEDS: ACETAMINOPHEN 325 MG TAB PO PRN ×3 (11:07→19:40)
--- NOTE | 2017-08-17 11:45 | Hospitalist Progress Note ---
Hospitalist Progress Note Date of Service Aug 17, 2017. (Blanca Haley PA-C) Subjective Pt evaluation today including: conversation w/ patient, physical exam, chart review, lab review, review of studies, review of inpatient medication list Patient seen and evaluated. No acute events overnight. Is a little forgetful. States pain is largely controlled but does flair up with movement. No numbness or tingling. Can wiggle fingers. States she has been eating and drinking ok. Awaiting rehab. Constitutional: No fever, No chills Respiratory: No cough Cardiovascular: No chest pain Abdomen: No pain, No nausea, No vomiting, No diarrhea, No constipation Musculoskeletal: + joint pain (L shoulder), No swelling, No calf pain Neurologic: No numbness/tingling Heme: No abnormal bleeding/bruising Skin: + problem reported (chin/neck ecchymosis), No rash (Blanca Haley , CHRISTIANC) Medications Current Inpatient Medications Medications (Trade) Dose Ordered Sig/Conor Route Start Time Stop Time Status Last Admin Dose Admin Acetaminophen (Tylenol Tab) 650 mg Q4H PRN PO 08/15/17 20:00 09/14/17 19:59 08/17/17 11:07 650 MG Al Hydrox/Mg Hydrox/Simethicone (Maalox Max Susp) 15 ml Q4H PRN PO 08/15/17 20:00 09/14/17 19:59 Magnesium Hydroxide (Milk Of Magnesia Susp) 30 ml Q6H PRN PO 08/15/17 20:00 09/14/17 19:59 Polyethylene (Miralax Powder Packet) 17 gm DAILY PRN PO 08/15/17 20:00 09/14/17 19:59 Ondansetron HCl (Zofran Inj) 4 mg Q6H PRN IV 08/15/17 20:00 09/14/17 19:59 Morphine Sulfate (MoRPHine SULFATE INJ) 4 mg Q4H PRN IV 08/15/17 20:00 08/29/17 19:59 08/16/17 11:17 4 MG Apixaban (Eliquis Tab) 2.5 mg BID PO 08/15/17 21:00 09/14/17 20:59 Future hold 08/17/17 08:41 2.5 MG Fluoxetine HCl (Prozac Cap) 80 mg DAILY PO 08/16/17 09:00 09/15/17 08:59 08/17/17 08:41 80 MG Folic Acid (Folvite Tab) 1 mg DAILY PO 08/16/17 09:00 09/15/17 08:59 08/17/17 08:42 1 MG Levothyroxine Sodium (Synthroid Tab) 88 mcg DAILYBB PO 08/16/17 06:00 09/15/17 06:59 08/17/17 05:42 88 MCG Simvastatin (Zocor Tab) 20 mg QPM PO 08/15/17 21:00 09/14/17 20:59 08/16/17 21:07 20 MG Trazodone HCl (Desyrel Tab) 50 mg HS PO 08/15/17 21:00 09/14/17 20:59 08/16/17 21:05 50 MG Buspirone HCl (Buspar Tab) 10 mg BID PO 08/15/17 21:00 09/14/17 20:59 08/17/17 08:42 10 MG Multivitamins/ Minerals (Multivitamin W/ Minerals Tab) 1 tab QAM PO 08/16/17 09:00 09/15/17 08:59 08/17/17 08:42 1 TAB Insulin Aspart (novoLOG ASPART) SLIDING SCALE G... ACHS SC 08/15/17 21:00 09/14/17 20:59 08/17/17 08:46 4 UNITS Glucose (Glucose 40% Gel) 15-30 GRAMS 15 GRAMS... UD PRN PO 08/15/17 20:15 09/14/17 20:14 Glucose (Glucose Chew Tab) 4-8 Tablets 4 Tabl... UD PRN PO 08/15/17 20:15 09/14/17 20:14 Dextrose (Dextrose 50% 50ML Syringe) 25-50ML OF 50% DW IV FOR... UD PRN IV 08/15/17 20:15 09/14/17 20:14 Glucagon (Glucagon Inj) 1 mg UD PRN SQ 08/15/17 20:15 09/14/17 20:14 Calcium/Vitamin D (Caltrate Plus Tab) 1 tab BID PO 08/16/17 09:00 09/15/17 08:59 08/17/17 08:42 1 TAB Miscellaneous (Iv Fluids Completed) 1 ea PRN PRN N/A 08/15/17 21:15 08/15/18 21:14 Sodium Chloride 1,000 ml @ 75 mls/hr [id number] IV 08/16/17 09:30 09/15/17 09:29 08/16/17 23:42 75 MLS/HR Oxycodone/ Acetaminophen (Percocet 5-325mg Tab) 1 tab Q6H PRN PO 08/16/17 19:00 08/30/17 18:59 08/16/17 21:12 1 TAB Docusate Sodium (coLACE CAP) 100 mg BID PO 08/16/17 21:00 09/15/17 20:59 08/17/17 08:42 100 MG (Blanca Haley, SALVADOR-C) Objective Vital Signs Date Time Temp Pulse Resp B/P (MAP) Pulse Ox O2 Delivery O2 Flow Rate FiO2 08/17/17 07:20 98 Nasal Cannula 2.0 08/17/17 07:20 37.0 63 19 128/53 (78) 98 Nasal Cannula 2.0 08/17/17 00:01 36.8 70 16 126/73 (90) 96 Nasal Cannula 1.0 08/17/17 00:00 Nasal Cannula 1.0 08/16/17 16:00 Nasal Cannula 1.0 08/16/17 15:14 36.9 62 18 102/66 (78) 92 Nasal Cannula 1.0 (Blanca Haley, PA-C) Physical Exam General Appearance: WD/WN, no apparent distress Eyes: sclerae normal ENT: hearing grossly normal Neck: supple, no JVD, trachea midline Respiratory/Chest: lungs clear, normal breath sounds, no respiratory distress, no accessory muscle use Cardiovascular: regular rate, rhythm, no gallop, no murmur Abdomen: normal bowel sounds, non tender, soft Extremities: + pertinent finding (immediate cap refill of LUE; no ecchymosis of shoulder; LUE in sling) Neurologic/Psychiatric: alert Skin: normal color, + pertinent finding (ecchymosis of chin and neck) (Blanca Haley, PA-C) Laboratory Results Last 24 Hours Test 08/16/17 11:54 08/16/17 16:45 08/16/17 20:11 2/19/18 06:31 Bedside Glucose 173 mg/dl 130 mg/dl 122 mg/dl White Blood Count 7.19 K/uL Red Blood Count 3.61 M/uL Hemoglobin 11.1 g/dL Hematocrit 33.7 % Mean Corpuscular Volume 93.4 fL Mean Corpuscular Hemoglobin 30.7 pg Mean Corpuscular Hemoglobin Concent 32.9 g/dl RDW Standard Deviation 48.0 fL RDW Coefficient of Variation 14.0 % Platelet Count 157 K/uL Mean Platelet Volume 9.0 fL Sodium Level 138 mmol/L Potassium Level 3.9 mmol/L Chloride Level 102 mmol/L Carbon Dioxide Level 30 mmol/L Anion Gap 6.0 mmol/L Blood Urea Nitrogen 22 mg/dl Creatinine 1.42 mg/dl Est Creatinine Clear Calc Drug Dose 34.3 ml/min Estimated GFR () 39.5 Estimated GFR (Non- 34.1 BUN/Creatinine Ratio 15.4 Random Glucose 111 mg/dl Calcium Level 8.6 mg/dl Test 08/17/17 07:54 Bedside Glucose 123 mg/dl (Blanca Haley, PA-C) Assessment and Plan 82-year-old female, with type 2 diabetes, hypothyroidism, depression, CKD 3b, and history of DVT/PE, presents with mechanical fall secondary to weakness resulting in a impacted left humeral fracture. L Impacted Humeral Fracture with Suspicion of Osteopenia/Osteoporosis - Fall from height level - recommend outpatient DEXA - Vitamin D and Calcium supplementation - Lidocaine patch, Percocet and Morphine - recommend oral medications - Orthopedics following - recommending conservative measures; utilize sling Fall 2/2 Generalized Weakness: - Recommendations for SNF on D/C - no infectious/cardiogenic sources found CKD Stage III: STABLE - Baseline around 1.6 - currently at 1.42 - continue to monitor and avoid nephrotoxins T2DM: A1c 6.5 - Holding Glyburide and covering with SSI Hypothyroidism - Levothyroxine 88 mcg daily H/O DVT/PE - Chronic Eliquis - continue at 2.5 mg BID Depression: STABLE - Buspar 10 mg BID and Prozac 80 mg daily DVT Prophylaxis: Eliquis Code Status: FULL RESUSCITATION Disposition: - SNF at [facility] needs two more midnights - F/U with Dr. Owens in 2 weeks Continued [facility] stay due to: ambulation difficulties Discharge planning: correction facility (Blanca Haley, KAMI) Reviewed: Pt Seen/Exam by Me (Yue Keller MD) History Physician Emergency Services Director supervision Note: I interviewed and examined the patient. Discussed with SALVADOR Haley and agree with findings and plan as documented in the note. Any exceptions or clarifications are listed here: Patient is confused and does not know where she is or how she got here. When I reminded her, then she remembers. Nursing reports she has been intermittently confused during the day and tends to sundown in the evenings. I asked the patient if she feels confused, she says yes. She is able to tell me the correct month, date, day of the week, and year. Vitals reviewed Gen: AAOx3, NAD, but confused HEENT: anicteric sclerae, EOMI CV: RRR no mgr nl S1S2 Pulm: CTAB no wcr Abd: +BS soft NT ND no masses or hernias Ext: no edema, or tenderness to palpation over left proximal humerus Skin: no rashes, warm/dry Patient is an 82-year-old female with a history of type 2 diabetes, hypothyroidism, depression, CKD 3b, and history of DVT/PE on Eliquis, presents with mechanical fall secondary to weakness resulting in an impacted left humeral fracture. Acute hospital and opioid induced delirium most likely -Awaiting placement at SNF after 3 midnight stay -Would avoid all opioids which we are now doing, redirection and supportive care -expect delirium to resolve by tomorrow as far as the opioid induced portion -Renal function is pretty much at her baseline -Eliquis for DVT prevention and is appropriately renally dosed Documented By: Yue Keller (Yue Keller MD)
[2017-08-17] MEDS ORDERED: LIDODERM (LIDOCAINE) PATCH 5% TD ONE (12:15)
[2017-08-17] MEDS ORDERED: OXYCODONE HCL IR 5 MG TAB (IMMEDIATE RELEASE) PO PRN (14:00)
[2017-08-17] MEDS ORDERED: NURSING DECISION MEDICATION ORDER SCH (15:15)
[2017-08-17] MEDS ORDERED: MICONAZOLE NITRATE POWDER 43 GM EXT PRN (15:15)
[2017-08-17 15:24] VITALS: BP 139/78; PULSE 65; TEMP 36.9; O2SAT 95
[2017-08-17] MEDS: TRAZODONE HCL 50 MG TAB PO SCH (21:23)
[2017-08-17] MEDS: SIMVASTATIN 20 MG TAB PO SCH (21:23)
[2017-08-17 23:19] VITALS: BP 172/80; PULSE 72; TEMP 36.9; O2SAT 94
[2017-08-17 23:39] VITALS: BP 155/72
[2017-08-18] MEDS: LEVOTHYROXINE 88 MCG TAB PO SCH (05:18)
[2017-08-18 07:02] LABS: HEMATOCRIT 36.3 % (37-47); HEMOGLOBIN 11.9 g/dL (12.0-16.0); MEAN CORPUSCULAR HEMOGLOBIN 29.8 pg (25-34); MEAN CORPUSCULAR HGB CONC 32.8 g/dl (32-36); MEAN PLATELET VOLUME 9.4 fL (7.4-10.4); PLATELET COUNT 200 K/uL (130-400); RED CELL DISTRIBUTION WIDTH CV 13.4 % (11.5-14.5); RED CELL DISTRIBUTION WIDTH SD 44.6 fL (36.4-46.3); WHITE BLOOD COUNT 8.49 K/uL (4.8-10.8)
[2017-08-18 07:34] LABS: CALCIUM 9.2 mg/dl (8.5-10.1); CREATININE 1.41 mg/dl (0.60-1.20); POTASSIUM 3.6 mmol/L (3.5-5.1)
[2017-08-18 07:45] VITALS: BP 170/88; PULSE 93; TEMP 37.3; O2SAT 92
[2017-08-18] MEDS: CALCIUM 600MG + VIT D 400 IU TAB PO SCH ×2 (08:57→21:23)
[2017-08-18] MEDS: DOCUSATE SODIUM 100 MG CAP PO SCH ×2 (08:57→21:23)
[2017-08-18] MEDS: CEROVITE ADV FORMULA TAB PO SCH (08:57)
[2017-08-18] MEDS: APIXABAN 2.5 MG TAB PO SCH ×2 (08:57→21:23)
[2017-08-18] MEDS: FLUOXETINE HCL 20 MG CAP PO SCH (08:58)
[2017-08-18] MEDS: LIDODERM (LIDOCAINE) PATCH 5% TD SCH (09:01)
[2017-08-18] MEDS: INSULIN ASPART 100 UNITS/ML 3 ML PEN SC SCH ×4 (09:04→21:39)
--- NOTE | 2017-08-18 14:04 | Hospitalist Progress Note ---
Hospitalist Progress Note Date of Service Aug 18, 2017. (Blanca Haley PA-C) Subjective Pt evaluation today including: conversation w/ patient, physical exam, chart review Patient seen and evaluated. No acute events. Is intermittently confused. Seems to continue to forget she has a broken arm but seems to remember she needs a 3 midnight stay Spoke with son who states she had underlying forgetfulness so this is likely some hospital delirium. Does report some incontinence but no other urinary symptoms but will R/O UTI Constitutional: No fever, No chills Respiratory: No cough, No shortness of breath Cardiovascular: No chest pain Abdomen: No pain, No nausea, No vomiting, No diarrhea, No constipation Musculoskeletal: + joint pain (L shoulder with movement) Neurologic: No numbness/tingling Heme: No abnormal bleeding/bruising Skin: No rash (Blanca Haley, CHRISTIANC) Medications Current Inpatient Medications Medications (Trade) Dose Ordered Sig/Conor Route Start Time Stop Time Status Last Admin Dose Admin Acetaminophen (Tylenol Tab) 650 mg Q4H PRN PO 08/15/17 20:00 09/14/17 19:59 08/17/17 19:40 650 MG Al Hydrox/Mg Hydrox/Simethicone (Maalox Max Susp) 15 ml Q4H PRN PO 08/15/17 20:00 09/14/17 19:59 Magnesium Hydroxide (Milk Of Magnesia Susp) 30 ml Q6H PRN PO 08/15/17 20:00 09/14/17 19:59 Polyethylene (Miralax Powder Packet) 17 gm DAILY PRN PO 08/15/17 20:00 09/14/17 19:59 Ondansetron HCl (Zofran Inj) 4 mg Q6H PRN IV 08/15/17 20:00 09/14/17 19:59 Apixaban (Eliquis Tab) 2.5 mg BID PO 08/15/17 21:00 09/14/17 20:59 Future hold 08/18/17 08:57 2.5 MG Fluoxetine HCl (Prozac Cap) 80 mg DAILY PO 08/16/17 09:00 09/15/17 08:59 08/18/17 08:58 80 MG Folic Acid (Folvite Tab) 1 mg DAILY PO 08/16/17 09:00 09/15/17 08:59 2/20/18 08:57 1 MG Levothyroxine Sodium (Synthroid Tab) 88 mcg DAILYBB PO 08/16/17 06:00 09/15/17 06:59 08/18/17 05:18 88 MCG Simvastatin (Zocor Tab) 20 mg QPM PO 08/15/17 21:00 09/14/17 20:59 08/17/17 21:23 20 MG Trazodone HCl (Desyrel Tab) 50 mg HS PO 08/15/17 21:00 09/14/17 20:59 08/17/17 21:23 50 MG Buspirone HCl (Buspar Tab) 10 mg BID PO 08/15/17 21:00 09/14/17 20:59 08/18/17 08:57 10 MG Multivitamins/ Minerals (Multivitamin W/ Minerals Tab) 1 tab QAM PO 08/16/17 09:00 09/15/17 08:59 08/18/17 08:57 1 TAB Insulin Aspart (novoLOG ASPART) SLIDING SCALE G... ACHS SC 08/15/17 21:00 09/14/17 20:59 08/18/17 12:55 4 UNITS Glucose (Glucose 40% Gel) 15-30 GRAMS 15 GRAMS... UD PRN PO 08/15/17 20:15 09/14/17 20:14 Glucose (Glucose Chew Tab) 4-8 Tablets 4 Tabl... UD PRN PO 08/15/17 20:15 09/14/17 20:14 Dextrose (Dextrose 50% 50ML Syringe) 25-50ML OF 50% DW IV FOR... UD PRN IV 08/15/17 20:15 09/14/17 20:14 Glucagon (Glucagon Inj) 1 mg UD PRN SQ 08/15/17 20:15 09/14/17 20:14 Calcium/Vitamin D (Caltrate Plus Tab) 1 tab BID PO 08/16/17 09:00 09/15/17 08:59 08/18/17 08:57 1 TAB Miscellaneous (Iv Fluids Completed) 1 ea PRN PRN N/A 08/15/17 21:15 08/15/18 21:14 Docusate Sodium (coLACE CAP) 100 mg BID PO 08/16/17 21:00 09/15/17 20:59 08/18/17 08:57 100 MG Lidocaine (Lidoderm Patch 5%) 1 patch QAM TD 08/18/17 09:00 09/17/17 08:59 08/18/17 09:01 1 PATCH Miscellaneous (Remove Lidoderm Patch) 1 ea DAILY@21 N/A 08/17/17 21:00 09/16/17 20:59 08/17/17 21:22 1 EA Miconazole Nitrate (Desenex Powder) 1 appln PRN PRN EXT 08/17/17 15:15 09/16/17 15:14 08/17/17 21:29 1 APPLN (Blanca Haley PA-C) Objective Vital Signs Date Time Temp Pulse Resp B/P (MAP) Pulse Ox O2 Delivery O2 Flow Rate FiO2 08/18/17 08:21 Room Air 08/18/17 07:45 37.3 93 17 170/88 (115) 92 Room Air 08/17/17 23:39 155/72 (99) 08/17/17 23:25 Room Air 08/17/17 23:19 36.9 72 18 172/80 (110) 94 Room Air 08/17/17 15:45 Room Air 08/17/17 15:24 36.9 65 18 139/78 (98) 95 Room Air (Blanca Haley PA-C) Physical Exam General Appearance: WD/WN, no apparent distress Eyes: sclerae normal Neck: supple, no JVD, trachea midline Respiratory/Chest: lungs clear, normal breath sounds, no respiratory distress, no accessory muscle use Cardiovascular: regular rate, rhythm, no gallop, no murmur Abdomen: normal bowel sounds, non tender, soft Extremities: no pedal edema Neurologic/Psychiatric: alert, + pertinent finding (intermittently forgetful) Skin: normal color, + pertinent finding (ecchymosis improving on chin and neck) (Blanca Haley PA-C) Laboratory Results Last 24 Hours Test 08/17/17 16:53 08/17/17 20:28 08/18/17 06:47 08/18/17 08:16 Bedside Glucose 150 mg/dl 220 mg/dl 155 mg/dl White Blood Count 8.49 K/uL Red Blood Count 3.99 M/uL Hemoglobin 11.9 g/dL Hematocrit 36.3 % Mean Corpuscular Volume 91.0 fL Mean Corpuscular Hemoglobin 29.8 pg Mean Corpuscular Hemoglobin Concent 32.8 g/dl RDW Standard Deviation 44.6 fL RDW Coefficient of Variation 13.4 % Platelet Count 200 K/uL Mean Platelet Volume 9.4 fL Sodium Level 138 mmol/L Potassium Level 3.6 mmol/L Chloride Level 102 mmol/L Carbon Dioxide Level 30 mmol/L Anion Gap 6.0 mmol/L Blood Urea Nitrogen 22 mg/dl Creatinine 1.41 mg/dl Est Creatinine Clear Calc Drug Dose 34.6 ml/min Estimated GFR () 39.8 Estimated GFR (Non- 34.4 BUN/Creatinine Ratio 15.9 Random Glucose 142 mg/dl Calcium Level 9.2 mg/dl Test 08/18/17 12:04 Bedside Glucose 183 mg/dl (Blanca Haley, PA-C) Assessment and Plan 82-year-old female, with type 2 diabetes, hypothyroidism, depression, CKD 3b, and history of DVT/PE, presents with mechanical fall secondary to weakness resulting in a impacted left humeral fracture. L Impacted Humeral Fracture with Suspicion of Osteopenia/Osteoporosis - Fall from height level - recommend outpatient DEXA - Vitamin D and Calcium supplementation - Lidocaine patch and Tylenol - will try to avoid opiates due to confusion - Orthopedics following - recommending conservative measures; utilize sling Fall 2/2 Generalized Weakness: - Recommendations for SNF on D/C - no infectious/cardiogenic sources found Delirium superimposed on Chronic Forgetfulness: - Per son, she is more confused than baseline but forgetfulness is chronically progressive - Will obtain UA to R/O UTI CKD Stage III: STABLE - Baseline around 1.6 - currently at 1.41 - continue to monitor and avoid nephrotoxins T2DM: A1c 6.5 - Holding Glyburide and covering with SSI Hypothyroidism - Levothyroxine 88 mcg daily H/O DVT/PE - Chronic Eliquis - continue at 2.5 mg BID Depression: STABLE - Buspar 10 mg BID and Prozac 80 mg daily DVT Prophylaxis: Eliquis Code Status: FULL RESUSCITATION Disposition: - SNF at [facility] - if clinical course remains the same she should be optimal for D/C tomorrow - F/U with Dr. Owens in 2 weeks Continued [facility] stay due to: ambulation difficulties Discharge planning: long term facility (Blanca Haley, KAMI) Reviewed: Pt Seen/Exam by Me (Yue Keller MD) History Physician Outcomes Manager supervision Note: I interviewed and examined the patient. Discussed with SALVADOR Haley and agree with findings and plan as documented in the note. Any exceptions or clarifications are listed here: Patient does remember me from yesterday by saying "oh you're back!"However, then she is asking when the kids are coming back into night and saying that she is in [facility]. She recognizes that she is confused. She has some pain in the left shoulder, but no other complaints. Vitals reviewed Gen: AAOx2, NAD, but confused HEENT: anicteric sclerae, EOMI CV: RRR no mgr nl S1S2 Pulm: CTAB no wcr Abd: +BS soft NT ND no masses or hernias Ext: no edema, positive tenderness to palpation over left proximal humerus Skin: no rashes, warm/dry, ecchymosis on chin and anterior neck Patient is an 82-year-old female with a history of type 2 diabetes, hypothyroidism, depression, CKD 3b, and history of DVT/PE on Eliquis, presents with mechanical fall secondary to weakness resulting in an impacted left humeral fracture. Acute hospital delirium most likely superimposed on possible pre-existing MCI- perhaps slightly improved today -Awaiting placement at SNF after 3 midnight stay-placement for tomorrow -Would avoid all opioids which we are now doing, redirection and supportive care -expect delirium to resolve after discharge -Renal function is pretty much at her baseline -Eliquis for DVT prevention and is appropriately renally dosed Documented By: Yue Keller (Yue Keller MD)
[2017-08-18 15:09] VITALS: BP 169/82; PULSE 86; TEMP 37.1; O2SAT 94
[2017-08-18] MEDS: SIMVASTATIN 20 MG TAB PO SCH (21:23)
[2017-08-18] MEDS: TRAZODONE HCL 50 MG TAB PO SCH (21:23)
[2017-08-18] MEDS: ACETAMINOPHEN 325 MG TAB PO PRN (23:03)
[2017-08-18 23:21] VITALS: BP 156/71; PULSE 83; TEMP 37.2; O2SAT 95
[2017-08-19] MEDS: LEVOTHYROXINE 88 MCG TAB PO SCH (05:39)
[2017-08-19 08:11] VITALS: BP 149/86; PULSE 80; TEMP 37; O2SAT 93
[2017-08-19 08:26] VITALS: O2SAT 93
[2017-08-19] MEDS: CALCIUM 600MG + VIT D 400 IU TAB PO SCH (08:47)
[2017-08-19] MEDS: DOCUSATE SODIUM 100 MG CAP PO SCH (08:48)
[2017-08-19] MEDS: APIXABAN 2.5 MG TAB PO SCH (08:49)
[2017-08-19] MEDS: CEROVITE ADV FORMULA TAB PO SCH (08:50)
[2017-08-19] MEDS: FLUOXETINE HCL 20 MG CAP PO SCH (08:51)
[2017-08-19] MEDS: LIDODERM (LIDOCAINE) PATCH 5% TD SCH (08:53)
[2017-08-19] MEDS: INSULIN ASPART 100 UNITS/ML 3 ML PEN SC SCH ×2 (09:17→13:29)
[2017-08-19 09:52] VITALS: BP 149/86; PULSE 80; TEMP 37; O2SAT 93
[2017-08-19] MEDS ORDERED: LDDP5 TD (10:59)
[2017-08-19] MEDS ORDERED: CLC100 PO (10:59)
[2017-08-19] MEDS ORDERED: ACET-1047 PO (10:59)
[2017-08-19] MEDS ORDERED: MCTP EXT (10:59)
[2017-08-19] MEDS ORDERED: CALCTAB7 PO (10:59)
[2017-08-19] MEDS ORDERED: CEPHALEXIN MONOHYDRATE 250 MG CAP PO ONE (11:05)
--- NOTE | 2017-08-19 11:05 | Discharge Instructions ---
Discharge Instructions Date of Service Aug 19, 2017. Admission Reason for Admission: L Humeral Fracture Discharge Discharge Diagnosis / Problem: L Humeral Fx Discharge Goals Goal(s): Decrease discomfort, Improve function, Increase independence Activity Recommendations Activity Level: Assistance Required Therapies: Physical Therapy, Occupational Therapy . Additional Information Patient informed of condition: Yes Advance Directives: No DNR: No Level of Care: Skilled Communicable Disease: No Prognosis: Stable Instructions / Follow-Up Instructions / Follow-Up 82-year-old female, with type 2 diabetes, hypothyroidism, depression, CKD 3b, and history of DVT/PE, presents with mechanical fall secondary to weakness resulting in a impacted left humeral fracture. L Impacted Humeral Fracture with Suspicion of Osteopenia/Osteoporosis - Fall from height level - recommend outpatient DEXA - Vitamin D and Calcium supplementation - Lidocaine patch and Tylenol - has had good pain control with this alone - had a lot of confusion with opiates but can consider low dose addition if pain does not stay controlled with therapy - Orthopedics Recommendations Ice to left shoulder as needed for pain and swelling Sling left arm when out of bed/ambulating. May remove when in bed and sitting in chair for comfort. May do range of motion left hand, fingers, wrist and forearm as tolerated to prevent stiffness. Non weight bearing left shoulder No movement of left shoulder, can work on elbow, forearm, wrist, and hand range of motion. No lifting more than cup of coffee. Elevate head of bed/sleep upright for comfort. Follow up with Dr. Owens/Chandrika Li on 08/31/17 at 11:00 AM. Please call [phone] with any questions, concerns or need to reschedule appointment. Delirium superimposed on Chronic Forgetfulness: - Per son, she is more confused than baseline but forgetfulness is chronically progressive - Gram neg bacilli growing on culture - will treat with Keflex 250 mg BID ( renal dosing) to complete 7 day course. Had dose this AM and only needs the evening dose on 08/19 then resume twice a day CKD Stage III: STABLE - Baseline around 1.6 - currently at 1.41 - continue to monitor and avoid nephrotoxins T2DM: A1c 6.5 - Continue oral anti-diabetics Hypothyroidism - Levothyroxine 88 mcg daily H/O DVT/PE - Chronic Eliquis - continue at 2.5 mg BID for renal dosing Depression: STABLE - Buspar 10 mg BID and Prozac 80 mg daily DVT Prophylaxis: Eliquis Code Status: FULL RESUSCITATION Disposition: - F/U with Dr. Owens in 2 weeks Current Hospital Diet Patient's current hospital diet: Diabetes Type 2 Diet Discharge Diet Recommended Diet: Diabetes Type 2 Diet Pending Studies Studies pending at discharge: yes List of pending studies: Urine Cx - will follow and call if Keflex would not be a suitable option - patient is afebrile, without leukocytosis, and asymptomatic Physician Orders On Transfer POLST Discussion: Not Applicable Laboratory Results Hemoglobin A1c Test 08/16/17 05:20 Range/Units Estimated Average Glucose 140 mg/dl Hemoglobin A1c 6.5 H 4.5-5.6 % Medical Emergencies . Who to Call and When: Medical Emergencies: If at any time you feel your situation is an emergency, please call 911 immediately. . Non-Emergent Contact Non-Emergency issues call your: Primary Care Provider Call Non-Emergent contact if: you have a fever, your pain is concerning you, you have any medication questions . . "Provider Documentation" section prepared by Blanca Haley. . Mixed Crop Farmer Recommendations Mixed Crop Farmer Recommendations: Ice to left shoulder as needed for pain and swelling Sling left arm when out of bed/ambulating. May remove when in bed and sitting in chair for comfort. May do range of motion left hand, fingers, wrist and forearm as tolerated to prevent stiffness. Non weight bearing left shoulder No movement of left shoulder, can work on elbow, forearm, wrist, and hand range of motion. No lifting more than cup of coffee. Elevate head of bed/sleep upright for comfort. Follow up with Dr. Owens/Chandrika Li on 08/31/17 at 11:00 AM. Please call [phone] with any questions, concerns or need to reschedule appointment. Core Measure Problem Core Measures: None
[2017-08-19] MEDS ORDERED: CEPH-571 PO (11:07)
[2017-08-19] MEDS ORDERED: CEPHALEXIN MONOHYDRATE 250 MG CAP PO SCH (21:00)
--- NOTE | 2017-08-19 22:16 | Discharge Summary ---
Discharge Summary Date of Service Aug 19, 2017. Discharge Summary Admission Date: Aug 16, 2017 at 09:55 Discharge Date: Aug 19, 2017 [facility] Principal Diagnosis: L Humerus Fx Problems/Secondary Diagnoses: Medical Problems: (1) Asthma (2) Asthma exacerbation (3) Ataxia (4) Bronchitis (5) CKD (chronic kidney disease), stage III (6) Depression (7) Dyslipidemia (8) History of DVT (deep vein thrombosis) (9) History of pulmonary embolism (10) Humeral fracture (11) Hypertension (12) Hypothyroidism (13) Left humeral fracture (14) Memory loss (15) Pneumonia (16) Type 2 diabetes mellitus Surgical Problems: (1) Status post appendectomy (2) Status post tonsillectomy Procedures: L HUMERUS MIN 2 VIEWS ROUTINE FINDINGS: There is an acute impacted left humeral neck fracture. Alignment of the left glenohumeral and acromioclavicular joints is anatomic. 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 Alignment of the left elbow is anatomic. IMPRESSION: Acute impacted left humeral neck fracture. Consultations: 1. Orthopedics 2. PT/OT Medication Reconciliation New Medications: Cephalexin (Keflex) 500 Mg Cap 250 MG PO BID, #13 CAP take one dose evening of 08/19 then resume twice a day on 08/20 Acetaminophen (Mapap) 325 Mg Tab 650 MG PO Q4H PRN for Pain or Fever for 30 Days, #240 TAB Calcium Carbonate-Vitamin D W/ (Caltrate 600 Plus) 1 Tab Tab 1 TAB PO BID for 30 Days, #60 TAB Docusate Sodium (Docusate Sodium) 100 Mg Cap 100 MG PO BID for 30 Days, #60 CAP Lidocaine (Lidocaine) 1 Patch Tdsy 1 PATCH TD QAM for 14 Days, #14 PATCH Miconazole Nitrate (Desenex Shake Powder) 43 Appln/43 Gm Powd 1 APPLN EXT PRN PRN for Affected Skin Folds for 14 Days, #1 BTL Continued Medications: Apixaban (Eliquis) 2.5 Mg Tab 2.5 MG PO BID, TAB Buspirone Hcl (Buspirone Hcl) 10 Mg Tab 10 MG PO BID, TAB Fluoxetine (Prozac) 20 Mg Cap 4 CAP PO DAILY, CAP Folic Acid (Folvite) 1 Mg Tab 1 MG PO DAILY, TAB Glimepiride (Glimepiride) 2 Mg Tab 1 TAB PO DAILY, TAB Levothyroxine Sodium (Levothyroxine Sodium) 88 Mcg Tab 1 TAB PO DAILY, TAB Multiple Vitamins W/ Minerals (Ocuvite Lutein) 1 Cap Cap 1 CAP PO DAILY Simvastatin (Zocor) 20 Mg Tab 20 MG PO QPM, TAB Trazodone Hcl (Trazodone) 50 Mg Tab 50 MG PO HS, TAB Discharge Exam Review of Systems: Constitutional: No fever, No chills ENT: No nasal symptoms, No sore throat Respiratory: No cough, No shortness of breath Cardiovascular: No chest pain Abdomen: No pain, No nausea, No vomiting, No diarrhea, No constipation Musculoskeletal: + joint pain (L shoulder with movement), No swelling, No calf pain Genitourinary - Female: No dysuria Neurologic: No numbness/tingling Hematologic / Lymphatic: No abnormal bleeding/bruising Physical Exam: General Appearance: WD/WN, no apparent distress Eyes: sclerae normal Neck: supple, no JVD, trachea midline Respiratory/Chest: lungs clear, normal breath sounds, no respiratory distress, no accessory muscle use Cardiovascular: regular rate, rhythm Abdomen / GI: normal bowel sounds, non tender, soft Extremities: no calf tenderness, no pedal edema, + pertinent finding (sling placed to LUE with immediate cap refill and motor function intact to fingers; no edema or cyanosis) Neurologic/Psychiatric: alert, oriented x 3, + pertinent finding ( intermittently forgetful) Skin: normal color Hospital Course ADMISSION: 82-year-old female, resident of [facility], with a past medical history of type 2 diabetes, CKD 3b, hypothyroidism, depression, DVT/PE on chronic anticoagulation, who presents to the emergency room after a fall earlier today. The patient states that she was getting up from her chair to go to the bathroom , and fell because she felt generally weak. Her daughter who accompanies her today states that she seems to be more weak in general for the past 2-3 days. She states that her her mother is been much more active this past week and wonders if she is warm herself out. The patient denies losing consciousness but did hit her chin and has sustained a small contusion. She denies any chest pain, palpitations, lightheadedness or dizziness prior to falling. She's not had any fevers, chills or sweats. She states that she is been eating and drinking at her baseline. She's not had any voiding issues including dysuria, urinary frequency, diarrhea, melena, or GI bleeding. In the emergency room multiple radiographs were done which did show a minimally displaced fractured left humeral neck with impaction. Given that the patient's baseline is fairly independent living and the degree of limitation but humeral fracture and poses, the decision was made to admit the patient for orthopedic recommendations and determine disposition plan for her. HOSPITAL COURSE: Ms. Ruvalcaba was admitted for a L Impacted Humeral Fx with non- surgical management. Returned to [facility]. L Impacted Humeral Fracture with Suspicion of Osteopenia/Osteoporosis - Fall from height level - recommend outpatient DEXA - Vitamin D and Calcium supplementation prescribed - Lidocaine patch and Tylenol - has had good pain control with this alone - had a lot of confusion with opiates but can consider low dose addition if pain does not stay controlled - Orthopedics Recommendations Ice to left shoulder as needed for pain and swelling Sling left arm when out of bed/ambulating. May remove when in bed and sitting in chair for comfort. May do range of motion left hand, fingers, wrist and forearm as tolerated to prevent stiffness. Non weight bearing left shoulder No movement of left shoulder, can work on elbow, forearm, wrist, and hand range of motion. No lifting more than cup of coffee. Elevate head of bed/sleep upright for comfort. Follow up with Dr. Owens/Chandrika Li on 08/31/17 at 11:00 AM. Please call [phone] with any questions, concerns or need to reschedule appointment. Delirium superimposed on Chronic Forgetfulness: - Per son, she is more confused than baseline but forgetfulness is chronically progressive - could be element of hospital delirium vs UTI - Gram neg bacilli growing on culture - will treat with Keflex 250 mg BID ( renal dosing) to complete 7 day course. Will follow cx in case Keflex would not be a good choice - asymptomatic from a urinary standpoint CKD Stage III: STABLE - Baseline around 1.6 - currently at 1.41 H/O DVT/PE - Chronic Eliquis - continue at 2.5 mg BID for renal dosing Disposition: - F/U with Dr. Owens in 2 weeks Attending Attestation & Discharge Note - Pt seen/examined, chart reviewed, and discharge care plan d/w SALVADOR Haley. I agree w/ the meyers components of her discharge summary. 82yo female with h/o asthma, CKD stage 3, prior DVT/PE, T2DM - presented with a left humerus fracture after suffering a fall. She was treated nonoperatively. She was seen in consult by orthopedics who recommended a sling and close follow- up in the orthopedic office in early August. During her stay the patient was mildly confused. This was felt to be due to either hospital psychosis or from toxic effects of narcotics. Family reported that at baseline she has cognitive dysfunction suggestive of mild cognitive impairment. There was a questionable UTI during her stay and she was d/c to the SNF with several more days of keflex. All other medical problems remained stable while here. Discharge exam - gen - NAD, obese heart - RRR lungs - CTA b/l abd - soft, NT, ND, BS+ ext - no edema musculo - left shoulder in a sling; mild-moderate swelling about the left shoulder neuro - strength handgrip on left 10/31 vascular - cap refill <2 sec - left hand Stephane Arizmendi MD Total Time Spent: Greater than 30 minutes This includes examination of the patient, discharge planning, medication reconciliation, and communication with other providers. Discharge Instructions Please refer to the electronic Patient Visit Report (Discharge Instructions) for additional information. Follow-Up Dr. Owens/Chandrika Li on 08/31/17 at 11:00 AM. Additional Copies To Sarkis Owens MD; Eve Weaver DO
--- NOTE | 2017-08-24 05:58 | EDITING REQUIRED CODING QUERY ---
CODING QUERY To promote full compliance with coding requirements relating to patient care, provider participation is requested in all cases of him director uncertainty. Please assist us with the question(s) below: Coding Question(s): There is documentation on the H&P of fragility fracture and there is documentation in the Progress Notes and Discharge Summary of L Impacted Humeral Fracture with Suspicion of Osteopenia/Osteoporosis and a Fall from height level. Please clarify below, in your clinical opinion. ( x ) Left Humeral Fracture is Osteoporotic Fracture ( ) Left Humeral Fracture is a Traumatic Fracture Physician's Response(s): Thank you Cecilia Hendricks Principal Diagnosis: "_that condition established after study, to be chiefly responsible for occasioning the admission of the patient to the hospital for care." Co-Existing Principal Diagnosis: "_when two or more diagnoses equally meet the criteria for principal diagnosis as determined by the circumstances of admission, diagnostic work up, and/or therapy provided, and the Alphabetic Index, Tabular List, or another coding guideline does not provide sequencing direction, any one of the diagnoses may be sequenced first." "When the physician has documented what appears to be a current diagnosis in the body of the record, but has not included the diagnosis in the final diagnostic statement, the physician should be asked whether the diagnosis should be added." (Source Coding [facility] 2 QTR90. p3-4)
== END 2017-08-19 14:22 | DRG 543 ==
LOC: EDBD 15:01 → C.EDB 15:02 → C.3E 19:59 → ENRESERV 20:21 → CANRESERV 20:21 → ENRESERV 20:33 → OBSVTOIN 08-16 09:55
PROVIDERS: ADMIT Student in an Organized Health Care Education/Training Program; ATTEND Internal Medicine
DX: M80.022A Age-related osteoporosis with current pathological fracture, left humerus, initial encounter for fracture (principal); N39.0 Urinary tract infection, site not specified; B96.89 Other specified bacterial agents as the cause of diseases classified elsewhere; R41.0 Disorientation, unspecified; T40.2X5A Adverse effect of other opioids, initial encounter; G31.84 Mild cognitive impairment of uncertain or unknown etiology; N18.3 Chronic kidney disease, stage 3 (moderate); E11.22 Type 2 diabetes mellitus with diabetic chronic kidney disease; I12.9 Hypertensive chronic kidney disease with stage 1 through stage 4 chronic kidney disease, or unspecified chronic kidney disease; E03.9 Hypothyroidism, unspecified; E78.5 Hyperlipidemia, unspecified; F32.9 Major depressive disorder, single episode, unspecified; G47.00 Insomnia, unspecified; Z79.899 Other long term (current) drug therapy; Z79.01 Long term (current) use of anticoagulants; Z79.84 Long term (current) use of oral hypoglycemic drugs; J45.909 Unspecified asthma, uncomplicated; Z86.718 Personal history of other venous thrombosis and embolism; Z86.711 Personal history of pulmonary embolism; Z88.5 Allergy status to narcotic agent; Z88.8 Allergy status to other drugs, medicaments and biological substances; Z88.1 Allergy status to other antibiotic agents; Z88.2 Allergy status to sulfonamides; Z83.6 Family history of other diseases of the respiratory system; Z82.0 Family history of epilepsy and other diseases of the nervous system; Z82.49 Family history of ischemic heart disease and other diseases of the circulatory system; W07.XXXA Fall from chair, initial encounter; Y92.199 Unspecified place in other specified residential institution as the place of occurrence of the external cause; Y99.8 Other external cause status

== ENCOUNTER → 2017-08-31 | Outpatient (CLI) | payer OTHER, MEDICARE ==
[~2017-08-31] MED LIST changes: +ACET-1047 PO; -AMR2 PO; -BSP5 PO; +BUSP-8 PO; +CALCTAB7 PO; +CEPH-571 PO; +CLC100 PO; -DXY100 PO; -FLV1 PO; +FOLI1TAB8 PO; +GLIM2TAB2 PO; +LDDP5 TD; +MCTP EXT; -MULT-190 PO; +MULTCAP31 PO; -PRVHFAIN INH; -RBTUDL5 PO; -SNK PO; -SYMIN/8045 INH; -TRAZ-119 PO; +TRAZ50TA35 PO
--- NOTE | 2017-08-31 11:56 | DIAGNOSTIC IMAGING REPORT ---
L SHOULDER MIN 2 VIEWS CLINICAL HISTORY: 82 years-old Female presenting with CLOSED FX OF LEFT PROXIMAL HUMERUS. TECHNIQUE: Frontal and transscapular Y views of the left shoulder were obtained. COMPARISON: 08/15/2017. FINDINGS: Redemonstration of the now subacute impacted fracture of the surgical neck of the left humerus. Impaction has increased from prior exam. Partial bridging callus formation noted. The humeral head remains congruent with the glenoid. Slight increased anterior displacement of the distal fracture fragment relative to the humeral head may also be present in comparison to prior. Osteopenia. IMPRESSION: Slight increased impaction and anterior displacement of the distal fracture fragment at the now subacute surgical neck fracture of the left humerus. Electronically signed by: Carlos Foy M.D. 08/31/2017 11:54 AM Dictated Date/Time: 08/31/2017 11:52 AM
== END | disposition home or self-care (01) ==
LOC: C.RDSM 17:08
PROVIDERS: ATTEND Physician Assistant
DX: S42.202A Unspecified fracture of upper end of left humerus, initial encounter for closed fracture (principal); X58.XXXA Exposure to other specified factors, initial encounter

== ENCOUNTER → 2017-09-22 | Outpatient (CLI) | payer OTHER, MEDICARE | END | disposition home or self-care (01) | LOC: C.RDSM 15:03 | PROVIDERS: ATTEND Orthopaedic Surgery Sports Medicine | DX: S42.209A Unspecified fracture of upper end of unspecified humerus, initial encounter for closed fracture (principal); X58.XXXA Exposure to other specified factors, initial encounter ==

== ENCOUNTER → 2017-10-21 | Outpatient (CLI) | payer OTHER, MEDICARE | END | disposition home or self-care (01) | LOC: C.RDSM 14:30 | PROVIDERS: ATTEND Orthopaedic Surgery Sports Medicine | DX: S42.209A Unspecified fracture of upper end of unspecified humerus, initial encounter for closed fracture (principal); X58.XXXA Exposure to other specified factors, initial encounter ==

== ENCOUNTER → 2018-02-18 | Outpatient (CLI) | payer OTHER, MEDICARE ==
[2018-02-18 16:51] LABS: BLOOD UREA NITROGEN 24 mg/dl (7-18); CALCIUM 9.7 mg/dl (8.5-10.1); CARBON DIOXIDE 33 mmol/L (21-32); CREATININE 1.54 mg/dl (0.60-1.20); GLUCOSE 135 mg/dl (70-99); PHOSPHORUS 2.9 mg/dl (2.5-4.9); SODIUM 139 mmol/L (136-145)
== END | disposition home or self-care (01) ==
LOC: C.LABPBG 15:28
PROVIDERS: ATTEND Internal Medicine Nephrology
DX: N18.9 Chronic kidney disease, unspecified (principal); R03.0 Elevated blood-pressure reading, without diagnosis of hypertension; I12.9 Hypertensive chronic kidney disease with stage 1 through stage 4 chronic kidney disease, or unspecified chronic kidney disease

== ENCOUNTER 2019-06-03 21:53 | Inpatient (IN) ==
[2019-06-03] MEDS ORDERED: SODIUM CHLORIDE 0.9% 500 ML IV SCH (22:45)
--- NOTE | 2019-06-03 22:47 | Emergency Department Note ---
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 The patient states she thinks she was trying to get into her bed but states she does not really remember. She notes she was laying on the floor yelling for help. She states she thinks she did not pass out. She notes she fell and hit the back of her head. The patient states she feels tired. The patient's daughter notes the patient does not wear oxygen at home. The patient states she coughs once in a while. The daughter states the patient gets treated for a bad cough and this has been getting managed. The daughter notes the patient was put on doxycycline previously and after that the patient started to get a rash. The daughter states the patient's physician thinks the rash is from an allergic reaction and so the patient was started on a steroid and Benadryl. The patient denies headaches, leg pain, hip pain, chest pain, and trouble breathing. The daughter notes the patient is on blood thinners because the patient had blood clots in her legs and lungs. Home Medications Home Medications Medication Instructions Recorded Confirmed Type escitalopram oxalate 10 mg PO QAM 08/04/18 06/04/19 History folic acid 1 mg PO QAM 08/04/18 06/04/19 History latanoprost [Xalatan] 1 drp OPHTHALMIC (EYE) 08/04/18 06/04/19 History levothyroxine 88 mcg PO QAM 08/04/18 06/04/19 History losartan 25 mg PO QAM 08/04/18 06/04/19 History simvastatin 20 mg PO HS 08/04/18 06/04/19 History trazodone 50 mg PO HS 08/04/18 06/04/19 History buspirone 30 mg PO BID 12/12/18 06/03/19 History ipratropium-albuterol 3 ml INHALATION Q4H PRN 12/12/18 06/04/19 History acetaminophen 500 mg tablet 500 mg PO TID 12/16/18 06/03/19 History calcium 600 mg-D3 800 unit-mag11 1 tab PO BID tab 02/10/19 06/03/19 History 50 cz-gcwo-bmfqke-cristofer-s.borat tablet insulin lispro 100) 100 unit/mL 1 sliding scale dose SUBCUT AC ml 02/10/19 06/04/19 History subcutaneous solution apixaban [Eliquis] 2.5 mg PO BID 03/13/19 06/03/19 History cetirizine 5 mg tablet 2.5 mg PO QAM PRN tab 03/23/19 06/03/19 History insulin glargine 100) 100 unit/mL 28 units SUBCUT QAM ml 03/23/19 06/04/19 History subcutaneous solution nystatin 100,000 unit/gram topical 1 appln TOP BID 03/23/19 06/04/19 History powder benzonatate 100 mg capsule 100 mg PO TID PRN #30 cap 05/09/19 06/03/19 Rx methylprednisolone 4 mg tablets in See Rx Instructions .ROUTE 06/02/19 06/04/19 Rx a dose pack .COMPLEX #21 ea acetaminophen [Tylenol] 650 mg PO Q4H PRN MDD 3G 06/04/19 06/04/19 History carboxymethylcellulose sodium 1 drp OPHTHALMIC (EYE) QID 06/04/19 06/04/19 History [Artificial Tears ([facility])] diphenhydramine HCl 25 mg PO Q8H PRN 06/04/19 06/04/19 History ipratropium-albuterol 3 ml INHALATION TID 06/04/19 06/04/19 History Allergies Allergy/AdvReac Type Severity Reaction Status Date / Time codeine Allergy Unknown CAN'T Verified 06/02/19 14:03 REMEMBER fluticasone Allergy Unknown CAN'T Verified 06/02/19 14:03 REMEMBER Macrolide Antibiotics Allergy Unknown PT UNSURE Verified 06/02/19 14:03 salmeterol Allergy Unknown CAN'T Verified 06/02/19 14:03 REMEMBER Sulfa (Sulfonamide Allergy Unknown PT UNSURE Verified 06/02/19 14:03 Antibiotics) troleandomycin Allergy Unknown CAN'T Verified 06/02/19 14:03 REMEMBER Past Med/Surg History Medical History Allergic rhinitis Anxiety and depression Arthritis Asthma Cardiomyopathy (Chronic) CKD (chronic kidney disease), stage III Dementia Dyslipidemia Endometrioid adenocarcinoma of uterus History of DVT (deep vein thrombosis) "LLE 2014" History of pulmonary embolism (2014) "2014" Hypertension Hypothyroidism Hypothyroidism Type 2 diabetes mellitus (Chronic) Urinary incontinence Vertigo Vitamin D deficiency Surgical History History of robot-assisted laparoscopic hysterectomy (Resolved 10/2018) 11/10/18 - with BSO with B/L SLN Biopsy and Right pelvic lymph node dissection and cystoscopy (Dr. Buffy Mayo in [place]) S/P appendectomy as a child S/P tonsillectomy as a child Family History Mother , Passed in 80s/90's of old age No problems noted. Father , Passed in 70's of black lung complications ([place]) No problems noted. Sister , Passed in 80's of unknown No problems noted. Sister , Passed in 60's of unknown No problems noted. Brother , Passed in 60's of unknown (alcoholic) No problems noted. Brother , Passed in late 70's of unknown No problems noted. Daughter No problems noted. Son No problems noted. Son No problems noted. Son No problems noted. 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 Other Information That Helps Us Care for You: No Feels Safe at Home: Yes Safety Concerns: Feels Safe At This Time Smoking Status: Never smoker Do You Dip or Chew Tobacco: No ; Second Hand Exposure: Yes ( smoked) ; Tobacco Cessation Education Requested by Patient: No Hx Alcohol Use: No Hx Substance Use: No Childhood Exposure to Second-Hand Smoke: No Other Diet Comment: well balanced diet caffeine: No during the past year weight has: increased > 10 lbs Dental Care, Regularly: No Physical Activity Frequency: Does not Exercise Seatbelt Use: always Sunscreen Use: No Review of Systems See HPI for pertinent positives & negatives. and A total of 10 systems reviewed and were otherwise negative Physical Exam Vital Signs Vital Signs - 24 hr 06/03/19 21:55 06/03/19 22:19 06/03/19 22:39 Temperature 36.9 C Temperature Source Oral Pulse Rate 87 Pulse Rate [Finger] Respiratory Rate 22 Respiratory Effort / Characteristics Non-Labored Spontaneous Respiratory Depth Normal Blood Pressure 129/73 Blood Pressure [Right Arm] Blood Pressure Mean 91 Blood Pressure Mean [Right Arm] Pulse Oximetry 88 L 88 L 96 Oxygen Delivery Method Room Air Nasal Cannula Oxygen Flow Rate 2 Sepsis Action Taken by Nursing No Action Required Oxygen Flow Rate - Titration 2 Pulse Oximetry Post Tiitration 95 06/03/19 23:30 06/04/19 00:55 Temperature Temperature Source Pulse Rate Pulse Rate [Finger] 76 75 Respiratory Rate 18 18 Respiratory Effort / Characteristics Respiratory Depth Blood Pressure Blood Pressure [Right Arm] 130/59 L 133/58 L Blood Pressure Mean Blood Pressure Mean [Right Arm] 82 83 Pulse Oximetry 92 97 Oxygen Delivery Method Nasal Cannula Nasal Cannula Oxygen Flow Rate 2 2 Sepsis Action Taken by Nursing Oxygen Flow Rate - Titration Pulse Oximetry Post Tiitration GENERAL: Patient is awake alert in no acute distress patient is resting comfortably and showing no signs of anxiety EYES: The conjunctivae are clear. The pupils are round and reactive. EARS, NOSE, MOUTH AND THROAT: The nose is without any evidence of any deformity. Mucous membranes are moist. Tongue is midline. NECK: The neck is nontender and supple. RESPIRATORY: Normal respiratory effort is noted there is no evidence of wheezing rhonchi or rales CARDIOVASCULAR: Regular rate and rhythm noted there no murmurs rubs or gallops normal S1 normal S2. GASTROINTESTINAL: The abdomen is soft. Abdomen is nontender. BACK: No midline tenderness or or step-off noted range of motion in flexion extension as well as rotation no signs of muscle spasm noted MUSCULOSKELETAL/EXTREMITIES: There is no evidence of gross deformity full range of motion is noted in the hips and shoulders. SKIN: Diffuse urticarial rash was noted. There is pedal edema bilaterally. NEUROLOGIC: Patient is awake alert and oriented x3. Strength was symmetric. Course Course 2232: The patient was evaluated in room C4, and a complete history and physical examination were performed. 2356: I discussed the patient's case with Dr. Schulte - [facility] Hospitalist. He will evaluate the patient for further management Administered Medications Albuterol (Duoneb) 3 ml INH TIDR LAYO Stop: 07/04/19 06:59 Last Admin: 06/04/19 13:15 Dose: 3 ml Documented by: [id number] Admin: 06/04/19 07:31 Dose: 3 ml Documented by: [id number] Apixaban (Eliquis) 2.5 mg PO BID LAYO Stop: 07/04/19 08:59 Last Admin: 06/04/19 08:08 Dose: 2.5 mg Documented by: [id number] Artificial Tears (Artificial Tears) 1 drops OP QID LAYO Stop: 07/04/19 08:59 Last Admin: 06/04/19 14:31 Dose: 1 ea Documented by: [id number] Admin: 06/04/19 08:37 Dose: Not Given Documented by: [id number] Buspirone HCl (Buspar) 30 mg PO BID LAYO Stop: 07/04/19 08:59 Last Admin: 06/04/19 08:07 Dose: 30 mg Documented by: [id number] Diphenhydramine HCl (Benadryl) 25 mg IV QID [facility] Stop: 06/05/19 08:59 Last Admin: 06/04/19 14:30 Dose: 25 mg Documented by: [id number] Admin: 06/04/19 08:02 Dose: 25 mg Documented by: [id number] Escitalopram Oxalate (Lexapro Tab) 10 mg PO QAM LAYO Stop: 07/04/19 08:59 Last Admin: 06/04/19 08:07 Dose: 10 mg Documented by: [id number] Famotidine (Pepcid) 20 mg PO BID LAYO Stop: 07/04/19 08:59 Last Admin: 06/04/19 08:07 Dose: 20 mg Documented by: [id number] Methylprednisolone 40 mg/ (Syringe) 0.64 mls @ 1.5 mls/min IV Q8H LAYO Stop: 07/04/19 05:59 Last Admin: 06/04/19 14:32 Dose: 1.5 mls/min Documented by: [id number] Admin: 06/04/19 05:50 Dose: 1.5 mls/min Documented by: [id number] Insulin Aspart (Novolog Flexpen) 0 units SC ACHS [facility] Stop: 07/04/19 07:29 Last Admin: 06/04/19 12:30 Dose: 15 units Documented by: [id number] Cosigned by: [id number] Admin: 06/04/19 08:04 Dose: 8 units Documented by: [id number] Cosigned by: [id number] Insulin Glargine (Lantus Solostar Pen) 28 units SC QAM LAYO Stop: 07/04/19 08:59 Last Admin: 06/04/19 08:05 Dose: 28 units Documented by: [id number] Cosigned by: [id number] Levothyroxine Sodium (Synthroid) 88 mcg PO DAILYBB [facility] Stop: 07/04/19 06:29 Last Admin: 06/04/19 05:50 Dose: 88 mcg Documented by: [id number] Multivitamins/Minerals (Caltrate Plus) 1 tab PO BID [facility] Stop: 07/04/19 08:59 Last Admin: 06/04/19 08:07 Dose: 1 tab Documented by: [id number] Nystatin (Mycostatin) 1 appln EXT BID [facility] Stop: 07/04/19 08:59 Last Admin: 06/04/19 08:07 Dose: 1 appln Documented by: [id number] Trazodone HCl (Desyrel) 50 mg PO HS [facility] Stop: 07/04/19 02:18 Last Admin: 06/04/19 03:09 Dose: 50 mg Documented by: [id number] Discontinued Medications Sodium Chloride (Nss) 500 mls @ 999 mls/hr IV .Q31M LAYO Stop: 06/03/19 23:15 Last Infusion: 06/03/19 23:23 Dose: 0 mls/hr Documented by: [id number] Admin: 06/03/19 22:45 Dose: 999 mls/hr Documented by: [id number] Magnesium Sulfate/Dextrose (Magnesium Sulfate / D5w) 1 gm in 100 mls @ 100 mls/hr IV Q1H [facility]AYO Stop: 06/04/19 01:14 Last Infusion: 06/04/19 01:57 Dose: 0 mls/hr Documented by: [id number] Admin: 06/04/19 00:54 Dose: 100 mls/hr Documented by: [id number] Infusion: 06/04/19 00:53 Dose: 0 mls/hr Documented by: [id number] Admin: 06/03/19 23:25 Dose: 100 mls/hr Documented by: [id number] Sodium Chloride (Nss 1000ml) 500 mls @ 999 mls/hr IV .Q31M ONE Stop: 06/04/19 00:29 Last Infusion: 06/04/19 00:53 Dose: 0 mls/hr Documented by: [id number] Admin: 06/04/19 00:11 Dose: 999 mls/hr Documented by: [id number] Levofloxacin/Dextrose (Levaquin/D5w) 500 mg in 100 mls @ 100 mls/hr IV ONE ONE Stop: 06/04/19 03:44 Last Infusion: 06/04/19 04:08 Dose: 0 mls/hr Documented by: [id number] Admin: 06/04/19 03:08 Dose: 100 mls/hr Documented by: [id number] Magnesium Sulfate/Dextrose (Magnesium Sulfate / D5w) 1 gm in 100 mls @ 100 mls/hr IV Q1H LAYO Stop: 06/04/19 12:59 Last Infusion: 06/04/19 14:10 Dose: 0 mls/hr Documented by: [id number] Admin: 06/04/19 12:59 Dose: 100 mls/hr Documented by: [id number] Infusion: 06/04/19 12:59 Dose: 100 mls/hr Documented by: [id number] Admin: 06/04/19 12:04 Dose: 100 mls/hr Documented by: [id number] Medical Decision Making Differential Diagnosis Differential diagnosis includes etiologies such as vasovagal event, infection, hypoglycemia, electrolyte abnormalities, cardiac sources, intracerebral event, toxicologic, neurologic, as well as others were entertained. Medical Records Attestation: I reviewed the patient's medical records. Home Medications Current Medication List: was personally reviewed by me Laboratory Data Attestation: I reviewed the patient's lab results. Result diagrams: 06/03/19 22:12 06/04/19 07:38 Lab Results 06/03/19 06/03/19 06/03/19 Range/Units 22:12 22:12 22:12 WBC 7.92 (4.8-10.8) K/uL RBC 4.22 (4.2-5.4) M/uL Hgb 12.4 (12.0-16.0) g/dL Hct 39.1 (37-47) % MCV 92.7 (80-100) fL MCH 29.4 (25-34) pg MCHC 31.7 L (32-36) g/dL RDW Std Deviation 47.2 H (36.4-46.3) fL RDW Coeff of Beverley 14.1 (11.5-14.5) % Plt Count 208 (130-400) K/uL MPV 10.1 (7.4-10.4) fL Immature Gran % (Auto) 1.1 % Neut % (Auto) 73.9 % Lymph % (Auto) 10.9 % [place] % (Auto) 7.2 % Eos % (Auto) 6.8 % Baso % (Auto) 0.1 % Immature Gran # (Auto) 0.09 H (0.00-0.02) K/uL Neut # (Auto) 5.85 (1.4-6.5) K/uL Lymph # (Auto) 0.86 L (1.2-3.4) K/uL [place] # (Auto) 0.57 (0.11-0.59) K/uL Eos # (Auto) 0.54 H (0-0.5) K/uL Baso # (Auto) 0.01 (0-0.2) K/uL PT 11.2 (9.0-12.0) Seconds INR 1.1 (0.9-1.1) APTT 25.6 (21.0-31.0) Seconds PTT Ratio 0.9 Sodium 139 (136-145) mmol/L Potassium 4.2 (3.5-5.1) mmol/L Chloride 102 (98-107) mmol/L Carbon Dioxide 33 H (21-32) mmol/L Anion Gap 4.0 (3-11) BUN 25 H (7-18) mg/dl Creatinine 1.89 H (0.6-1.2) mg/dl Est Cr Clr Drug Dosing 26.5 ml/min Est GFR ( Amer) 27.8 Est GFR (Non-Af Amer) 23.9 BUN/Creatinine Ratio 13.3 (10-20) Glucose 205 H (70-99) mg/dl Calcium 9.9 (8.5-10.1) mg/dl Magnesium 1.2 L (1.8-2.4) mg/dl Total Bilirubin 0.4 (0.2-1) mg/dl AST 17 (15-37) U/L ALT 25 (12-78) U/L Alkaline Phosphatase 60 (45-117) U/L Troponin I < 0.015 (0-0.045) ng/ml Total Protein 6.0 L (6.4-8.2) gm/dl Albumin 2.7 L (3.4-5.0) gm/dl Globulin 3.3 (2.5-4.0) gm/dl Albumin/Globulin Ratio 0.8 L (0.9-2) TSH 1.700 (0.300-4.500) uIu/ml Urine Color Urine Appearance (Clear) Urine pH (4.5-7.5) Ur Specific [place] (1.000-1.030) Urine Protein (Negative) Urine Glucose (UA) (Negative) Urine Ketones (Negative) Urine Blood (Negative) Urine Nitrite (Negative) Urine Bilirubin (Negative) Urine Urobilinogen (Negative) Ur Leukocyte Esterase (Negative) 06/04/19 Range/Units 00:04 WBC (4.8-10.8) K/uL RBC (4.2-5.4) M/uL Hgb (12.0-16.0) g/dL Hct (37-47) % MCV (80-100) fL MCH (25-34) pg MCHC (32-36) g/dL RDW Std Deviation (36.4-46.3) fL RDW Coeff of Beverley (11.5-14.5) % Plt Count (130-400) K/uL MPV (7.4-10.4) fL Immature Gran % (Auto) % Neut % (Auto) % Lymph % (Auto) % [place] % (Auto) % Eos % (Auto) % Baso % (Auto) % Immature Gran # (Auto) (0.00-0.02) K/uL Neut # (Auto) (1.4-6.5) K/uL Lymph # (Auto) (1.2-3.4) K/uL [place] # (Auto) (0.11-0.59) K/uL Eos # (Auto) (0-0.5) K/uL Baso # (Auto) (0-0.2) K/uL PT (9.0-12.0) Seconds INR (0.9-1.1) APTT (21.0-31.0) Seconds PTT Ratio Sodium (136-145) mmol/L Potassium (3.5-5.1) mmol/L Chloride (98-107) mmol/L Carbon Dioxide (21-32) mmol/L Anion Gap (3-11) BUN (7-18) mg/dl Creatinine (0.6-1.2) mg/dl Est Cr Clr Drug Dosing ml/min Est GFR ( Amer) Est GFR (Non-Af Amer) BUN/Creatinine Ratio (10-20) Glucose (70-99) mg/dl Calcium (8.5-10.1) mg/dl Magnesium (1.8-2.4) mg/dl Total Bilirubin (0.2-1) mg/dl AST (15-37) U/L ALT (12-78) U/L Alkaline Phosphatase (45-117) U/L Troponin I (0-0.045) ng/ml Total Protein (6.4-8.2) gm/dl Albumin (3.4-5.0) gm/dl Globulin (2.5-4.0) gm/dl Albumin/Globulin Ratio (0.9-2) TSH (0.300-4.500) uIu/ml Urine Color Yellow Urine Appearance Clear (Clear) Urine pH 6.0 (4.5-7.5) Ur Specific [place] 1.013 (1.000-1.030) Urine Protein Negative (Negative) Urine Glucose (UA) Negative (Negative) Urine Ketones Negative (Negative) Urine Blood Negative (Negative) Urine Nitrite Negative (Negative) Urine Bilirubin Negative (Negative) Urine Urobilinogen Negative (Negative) Ur Leukocyte Esterase Negative (Negative) Imaging Data Radiologist's Impression: Radiology results as stated below per my review and the radiologist's interpretation: XR chest 1V portable HISTORY: weakness COMPARISON: Chest 03/13/2019. FINDINGS: There are low lung volumes. The heart is enlarged. Patchy bibasilar densities. No evidence for pulmonary edema. No pneumothorax. No pleural effusions. Emphysema. Advanced degenerative changes within the left shoulder. IMPRESSION: 1. Patchy bibasilar densities. This may represent atelectasis or pneumonia. 2. Stable mild cardiomegaly. Electronically signed by: Ciro Lopze M.D. 06/03/2019 11:00 PM Preliminary Findings Only See Final Report For Complete Findings CT C SPINE: FINDINGS: No fracture or subluxations are noted. The vertebral body heights and alignment are preserved. No prevertebral soft tissue swelling. Note is made of multilevel cervical spondylosis with varying degrees of central canal and foramina stenoses. Straightening of the normal cervical lordosis with disc space narrowing at C4-5, C5-6 and C6-7. Right greater than left uncovertebral joint space narrowing noted on the frontal view C4-5, bilaterally at C5-6. Lung apices are normal. IMPRESSION: 1. No cervical fractures. 2. Cervical spondylosis with varying degrees of central canal and foramina stenoses. Radiologist: Kareem Bingham MD Study ready at 23:10 and initial results transmitted at 23:33 Preliminary Findings Only See Final Report For Complete Findings CT HEAD: Comparison: 03/13/2019 FINDINGS: No intracranial hemorrhage, abnormal intra- or extra-axial collections or parenchymal lesions are seen. There are involutional changes with prominence of the sulci, basal cisterns and ventricles. Scattered white matter hypoattenuations are present, likely from small vessel disease. The carlos-white differentiation is preserved. No evidence of mass effect, midline shift, or edema. The osseous structures are unremarkable. The visualized portions of the paranasa l sinuses are clear. IMPRESSION: 1. No acute intracranial process. 2. Involutional changes with small vessel disease. Radiologist: Kareem Bingham MD Study ready at 23:10 and initial results transmitted at 23:29 Blood Pressure Blood Pressure Findings: Elevated blood pressure Blood Pressure Disposition: Referred to patients primary care provider MDM Narrative The patient is an 83-year-old female who presented to the emergency department after a fall. The patient had a syncopal episode. She has had problems with cough as well as a rash recently. She has diffuse urticaria and I wonder if this is part of the cause of the patient's syncope. She is also been taking Benadryl for this rash. I discussed patient's laboratory and radiographic studies with her and her daughter. She was found to have signs of pneumonia. I was very concerned about the patient's overall condition given that she lives in a personal residential. For this reason I discussed her case with the on-call [facility] hospitalist group. They have agreed to evaluate the patient in the emergency department for further management disposition. Impression & Plan Syncope, Head injury, Urticaria, Hypomagnesemia, Hypoxia, Pneumonia Discharge Plan Visit Data *Final* Discharge Date/Time: 06/04/19 02:02 Chief Complaint: Fall Stated Complaint: FALL, HIT HEAD, PAINFUL RASH POSS ALLERGIC REACTIO ED Provider: Bang Martins Discharge Problem: Syncope, Head injury, Urticaria, Hypomagnesemia, Hypoxia, Pneumonia Patient Disposition: Admitted As Inpatient Discharge Instructions Interventions: ED Discharge Assessment Last Done: 06/04/19 02:02 Discharge Problem: Syncope Qualifiers: Syncope type: unspecified Qualified Code(s): R55 - Syncope and collapse Head injury Qualifiers: Encounter type: initial encounter Qualified Code(s): S09.90XA - Unspecified injury of head, initial encounter Pneumonia Qualifiers: Pneumonia type: due to unspecified organism Laterality: unspecified laterality Lung location: unspecified part of lung Qualified Code(s): J18.9 - Pneumonia, unspecified organism The scribe's documentation has been prepared under my direction and personally reviewed by me in its entirety. I confirm that the note above accurately reflects all work, treatment, procedures, and medical decision making performed by me.
[2019-06-03 22:53] LABS: Basophils # (auto) 0.01 K/uL (0-0.2); Basophils % (auto) 0.1 %; Eosinophils # (auto) 0.54 K/uL (0-0.5); Eosinophils % (auto) 6.8 %; Hematocrit (blood only) 39.1 % (37-47); Hemoglobin 12.4 g/dL (12.0-16.0); Immature Granulocytes # (auto) 0.09 K/uL (0.00-0.02); Immature Granulocytes % (auto) 1.1 %; Lymphocytes # (auto) 0.86 K/uL (1.2-3.4); Lymphocytes % (auto) 10.9 %; Mean Corpuscular Hemoglobin 29.4 pg (25-34); Mean Corpuscular Hgb Conc 31.7 g/dL (32-36); Mean Corpuscular Volume 92.7 fL (80-100); Mean Platelet Volume 10.1 fL (7.4-10.4); Monocytes # (auto) 0.57 K/uL (0.11-0.59); Monocytes % (auto) 7.2 %; Neutrophils # (auto) 5.85 K/uL (1.4-6.5); Neutrophils % (auto) 73.9 %; Platelet Count 208 K/uL (130-400); RDW Coefficient of Variation 14.1 % (11.5-14.5); RDW Standard Deviation 47.2 fL (36.4-46.3); Red Blood Count 4.22 M/uL (4.2-5.4); White Blood Count 7.92 K/uL (4.8-10.8)
[2019-06-03 22:57] LABS: INR 1.1 (0.9-1.1); Partial Thromboplastin Ratio 0.9; Partial Thromboplastin Time 25.6 Seconds (21.0-31.0); Prothrombin Time 11.2 Seconds (9.0-12.0)
[2019-06-03 22:59] LABS: Alanine Aminotransferase 25 U/L (12-78); Albumin Level 2.7 gm/dl (3.4-5.0); Aspartate Aminotransferase 17 U/L (15-37); BUN Creatinine Ratio 13.3 (10-20); Blood Urea Nitrogen 25 mg/dl (7-18); Calcium 9.9 mg/dl (8.5-10.1); Carbon Dioxide 33 mmol/L (21-32); Chloride 102 mmol/L (98-107); Creatinine Clr Calc Pharmacy 26.5 ml/min; Est GFR (African American) 27.8; Est GFR (Non-African American) 23.9; Glucose 205 mg/dl (70-99); Magnesium 1.2 mg/dl (1.8-2.4); Potassium 4.2 mmol/L (3.5-5.1); Sodium 139 mmol/L (136-145)
--- NOTE | 2019-06-03 23:01 | XRay Report ---
XR chest 1V portable HISTORY: weakness COMPARISON: Chest 03/13/2019. FINDINGS: There are low lung volumes. The heart is enlarged. Patchy bibasilar densities. No evidence for pulmonary edema. No pneumothorax. No pleural effusions. Emphysema. Advanced degenerative changes within the left shoulder. IMPRESSION: 1. Patchy bibasilar densities. This may represent atelectasis or pneumonia. 2. Stable mild cardiomegaly. Electronically signed by: Ciro Lopez M.D. 06/03/2019 11:00 PM
[2019-06-03 23:10] LABS: Albumin Globulin Ratio 0.8 (0.9-2); Alkaline Phosphatase 60 U/L (45-117); Bilirubin,Total 0.4 mg/dl (0.2-1); Globulin 3.3 gm/dl (2.5-4.0); Troponin I < 0.015 ng/ml (0-0.045)
[2019-06-03] MEDS: MAGNESIUM SULFATE / D5W 1 GM/100 ML BAG IV SCH (23:25)
[2019-06-03] MEDS ORDERED: SODIUM CHLORIDE 0.9% 1000ML 500 ML IV ONE (23:59)
--- NOTE | 2019-06-04 00:20 | History & Physical Report ---
Date of Service June 04, 2019 Assessment & Plan (1) Hypoxia: This is an 83 yo F who presents from [facility] with daughter who provides most of history - with cough x 1 week, treated initially with doxycycline x 4 days. At that same PCP visit had been started on oxybutinin due to inconti nence. Pt developed diffuse rash and pruritus. Doxycycline as well as the oxybutinin was stopped, and benadryl and medrol dose mari was begun. Then pt fell in her room at , does not have good recollection of the event and was sent to ED for evaluation. Fall at [facility] -appears to be a mechanical fall - no focal findings on exam or imaging -Labs significant for moderate increase in her creatinine to 1.89, mildly low magnesium and this was replaced, no fever, no leukocytosis. no anemia. Urinalysis within normal limits. -mentation is at baseline acc to daughter -CT head/neck normal -recent use of benadryl could be contributory to risk of fall. -fall precautions ordered, pt/ot as well. Acute hypoxic respiratory failure -In ED - Pt was found to be hypoxic to high 80s and begun on 2L NC. CXR suggests possible pneumonia. -Pt reportedly has history of recurrent bronchitis/pneumonia. -with recent adverse reaction to doxycycline and oxybutinin (pt's daughter states she has had doxy before, so she doesn't think that is the culprit) nonetheless will treat with levaquin. Pt did actually receive about 4 days worth of doxycycline so clinically to assess for improvement, perhaps only needs 2-3 days more of levaquin -levaquin renally dosed. 500mg x 1, then 250mg daily. -duonebs sched and prn -O2 as needed, wean as tolerated Uritcaria -appears to be 2/2 adv drug reaction - possibly due to oxybutinin, +/- doxycycline -IV benadryl -- discussed at length the risks of antihistamines in the elderly and demented - is a risk pt and family willing to take given the extent of her rash -add PO H2 miah for added antihistamine effect -cont IV steroids -add calamine/cold compress/supportive care Elev creatinine -pt has known CKD III, baseline 1.4 - 1.6 -may be due to acute illness vs po steroids -will add maintenance fluids to run for 24 hours -follow bmp -renally dose all meds -HOLD losartan temporarily Other ongoing medical problems: 1. Atopy - takes cetirizine PRN. Will hold while on benadryl so as not to compound sedative/delirium side effects. 2. Anxiety and depression - cont home escitalopram, buspar, trazadone 3. Arthritis - tylenol prn 4. Cardiomyopathy (Chronic) 5. CKD (chronic kidney disease), stage III -- with mild elev in creatinine on labs here. As above. 6. Dementia - redirection. One to one as needed. 7. 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 - no acute issues 9. History of DVT (deep vein thrombosis) - cont home eliquis 10. Hypertension - normally on losartan - HELD in setting of elev creatinine. Ok to resume once resolves. 11. Hypothyroidism - cont home levothyroxine 12. Type 2 diabetes mellitus (Chronic) - insulin dependent - on ISS and T2DM diet here. FEN/GI: T2DM diet. Received 1.5 L NSS bolus in ED. Will hold off on further fluids at this time. DVT ppx: on home eliquis CODE STATUS: FULL as d/w pt and daughter, but pt would not want prolonged intubation. DISPO: med/tele. PT/OT ordered, CM to help with discharge back to [facility] when appropriate. (2) Urticaria: (3) Pneumonia: (4) Type 2 diabetes mellitus: (5) Anxiety and depression: (6) Arthritis: (7) Allergic rhinitis: (8) Dementia: (9) Hypertension: (10) CKD (chronic kidney disease), stage III: History of Present Illness Chief Complaint: cough, hypoxia, severe dermatitis Primary Care Provider: Eve Weaver DO This is an 83 yo F who presents from [facility] with daughter who provides most of history - with cough x 1 week, treated initially with doxycycline x 4 days. At that same PCP visit had been started on oxybutinin due to incontinence. Pt developed diffuse rash and pruritus. Doxycycline as well as the oxybutinin was stopped, and benadryl and medrol dose mari was begun. Then pt fell in her room at , does not have good recollection of the event and was sent to ED for evalu ation. In the ED, CT head and cervical spine with no acute changes. Pt was found to be hypoxic to high 80s and begun on 2L NC. CXR suggests possible pneumonia. Pt reportedly has history of recurrent bronchitis/pneumonia. Labs significant for moderate increase in her creatinine to 1.89, mildly low magnesium and this was replaced, no fever, no leukocytosis. no anemia. Urinalysis within normal limits. PMH 1. Atopy - takes cetirizine PRN. Asthma, frequent bronchitis/PNAs. 2. Anxiety and depression - on escitalopram, buspar, trazadone 3. Arthritis - tylenol prn 4. Cardiomyopathy (Chronic) 5. CKD (chronic kidney disease), stage III 6. Dementia 7. 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 9. History of DVT (deep vein thrombosis) - on eliquis 10. Hypertension - controlled on losartan 11. Hypothyroidism - controlled on levothyroxine 12. 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 H/o BSO with B/L SLN Biopsy and Right pelvic lymph node dissection and cystoscopy (Dr. Buffy Mayo in [place]) 2. S/P appendectomy 3. S/P tonsillectomy SH: lives at [facility]. Daughter is involved in her care and advocates for her. Allergies Allergy/AdvReac Type Severity Reaction Status Date / Time codeine Allergy Unknown CAN'T Verified 06/02/19 14:03 REMEMBER fluticasone Allergy Unknown CAN'T Verified 06/02/19 14:03 REMEMBER Macrolide Antibiotics Allergy Unknown PT UNSURE Verified 06/02/19 14:03 salmeterol Allergy Unknown CAN'T Verified 06/02/19 14:03 REMEMBER Sulfa (Sulfonamide Allergy Unknown PT UNSURE Verified 06/02/19 14:03 Antibiotics) troleandomycin Allergy Unknown CAN'T Verified 06/02/19 14:03 REMEMBER Home Medications Home Medications Medication Instructions Recorded Confirmed Type escitalopram oxalate 10 mg PO QAM 08/04/18 06/04/19 History folic acid 1 mg PO QAM 08/04/18 06/04/19 History latanoprost [Xalatan] 1 drp OPHTHALMIC (EYE) HS 08/04/18 06/04/19 History levothyroxine 88 mcg PO QAM 08/04/18 06/04/19 History losartan 25 mg PO QAM 08/04/18 06/04/19 History simvastatin 20 mg PO HS 08/04/18 06/04/19 History trazodone 50 mg PO HS 08/04/18 06/04/19 History buspirone 30 mg PO BID 12/12/18 06/03/19 History ipratropium-albuterol 3 ml INHALATION Q4H PRN 12/12/18 06/04/19 History acetaminophen 500 mg tablet 500 mg PO TID 12/16/18 06/03/19 History calcium 600 mg-D3 800 unit-mag11 1 tab PO BID tab 02/10/19 06/03/19 History 50 oo-ovjk-nulknq-cristofer-s.borat tablet insulin lispro 100) 100 unit/mL 1 sliding scale dose SUBCUT AC ml 02/10/19 06/04/19 History subcutaneous solution apixaban [Eliquis] 2.5 mg PO BID 03/13/19 06/03/19 History cetirizine 5 mg tablet 2.5 mg PO QAM PRN tab 03/23/19 06/03/19 History insulin glargine 100) 100 unit/mL 28 units SUBCUT QAM ml 03/23/19 06/04/19 History subcutaneous solution nystatin 100,000 unit/gram topical 1 appln TOP BID 03/23/19 06/04/19 History powder benzonatate 100 mg capsule 100 mg PO TID PRN #30 cap 05/09/19 06/03/19 Rx methylprednisolone 4 mg tablets in See Rx Instructions .ROUTE 06/02/19 06/04/19 Rx a dose pack .COMPLEX #21 ea acetaminophen [Tylenol] 650 mg PO Q4H PRN MDD 3G 06/04/19 06/04/19 History carboxymethylcellulose sodium 1 drp OPHTHALMIC (EYE) QID 06/04/19 06/04/19 History [Artificial Tears ([facility])] diphenhydramine HCl 25 mg PO Q8H PRN 06/04/19 06/04/19 History ipratropium-albuterol 3 ml INHALATION TID 06/04/19 06/04/19 History Past Med/Surg History Medical History Allergic rhinitis Anxiety and depression Arthritis Asthma Cardiomyopathy (Chronic) CKD (chronic kidney disease), stage III Dementia Dyslipidemia Endometrioid adenocarcinoma of uterus History of DVT (deep vein thrombosis) "LLE 2014" History of pulmonary embolism (2015) "2014" Hypertension Hypothyroidism Hypothyroidism Type 2 diabetes mellitus (Chronic) Urinary incontinence Vertigo Vitamin D deficiency Surgical History History of robot-assisted laparoscopic hysterectomy (Resolved 10/2018) 11/10/18 - with BSO with B/L SLN Biopsy and Right pelvic lymph node dissection and cystoscopy (Dr. Buffy Mayo in [place]) S/P appendectomy as a child S/P tonsillectomy as a child Family History Mother , Passed in 80s/90's of old age No problems noted. Father , Passed in 70's of black lung complications ([place]) No problems noted. Sister , Passed in 80's of unknown No problems noted. Sister , Passed in 60's of unknown No problems noted. Brother , Passed in 60's of unknown (alcoholic) No problems noted. Brother , Passed in late 70's of unknown No problems noted. Daughter No problems noted. Son No problems noted. Son No problems noted. Son No problems noted. 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 Other Information That Helps Us Care for You: No Feels Safe at Home: Yes Safety Concerns: Feels Safe At This Time Smoking Status: Never smoker Do You Dip or Chew Tobacco: No ; Second Hand Exposure: Yes ( smoked) ; Tobacco Cessation Education Requested by Patient: No Hx Alcohol Use: No Hx Substance Use: No Childhood Exposure to Second-Hand Smoke: No Other Diet Comment: well balanced diet caffeine: No during the past year weight has: increased > 10 lbs Dental Care, Regularly: No Physical Activity Frequency: Does not Exercise Seatbelt Use: always Sunscreen Use: No Physical Exam Physical Exam: Vitals noted and within normal limits GENERAL: Awake, alert to person, place, and time, nontoxic-appearing, in no distress. Long and short term memory appear to be impaired. HENT: Normocephalic, atraumatic. Nasal cannula in place. Mucus membranes appear moist. EYES: Normal conjunctiva. Sclera non-icteric. EOMI. NECK: Supple. Full range of motion. No JVD. RESPIRATORY: Faint wheeze bilaterally, slightly diminished. No rhonchi or rales. Normal work of breathing. CARDIAC: Regular rate, normal rhythm. Extremities warm and well perfused, 2+ radial pulses bilaterally; ABDOMEN: Soft, non-distended. No tenderness to palpation in all four quadrants. No rebound or guarding. No masses. Bowel sounds are normal. LOWER EXTREMITIES: Inspection of calves reveal equal size bilaterally. They are non-tender. No edema. NEURO: No gross focal motor deficits noted. Sensation in tact. CN II-XII grossly in tact. . SKIN: Diffuse lacy rash and pruritus present on trunk and extremities. No signs of cellulitis, small area of scab on left forearm. No jaundice noted. PSYCH: Appropriate mood and affect. Cooperative. Pt's daughter is present at the bedside for my exam. Exam as done by Celia Daugherty MD, [facility]. Results & Data Vital Signs (Past 12 Hours) Vital Signs Temp Pulse Pulse Resp BP BP Pulse Ox 06/03/19 23:30 76 18 130/59 L 92 06/03/19 22:39 96 06/03/19 22:19 88 L 06/03/19 21:55 36.9 C 87 22 129/73 88 L Laboratory Results 06/04/19 06/03/19 06/03/19 Range/Units 00:04 22:12 22:12 WBC (4.8-10.8) K/uL RBC (4.2-5.4) M/uL Hgb (12.0-16.0) g/dL Hct (37-47) % MCV (80-100) fL MCH (25-34) pg MCHC (32-36) g/dL RDW Std Deviation (36.4-46.3) fL RDW Coeff of Beverley (11.5-14.5) % Plt Count (130-400) K/uL MPV (7.4-10.4) fL Immature Gran % (Auto) % Neut % (Auto) % Lymph % (Auto) % [place] % (Auto) % Eos % (Auto) % Baso % (Auto) % Immature Gran # (Auto) (0.00-0.02) K/uL Neut # (Auto) (1.4-6.5) K/uL Lymph # (Auto) (1.2-3.4) K/uL [place] # (Auto) (0.11-0.59) K/uL Eos # (Auto) (0-0.5) K/uL Baso # (Auto) (0-0.2) K/uL PT 11.2 (9.0-12.0) Seconds INR 1.1 (0.9-1.1) APTT 25.6 (21.0-31.0) Seconds PTT Ratio 0.9 Sodium 139 (136-145) mmol/L Potassium 4.2 (3.5-5.1) mmol/L Chloride 102 (98-107) mmol/L Carbon Dioxide 33 H (21-32) mmol/L Anion Gap 4.0 (3-11) BUN 25 H (7-18) mg/dl Creatinine 1.89 H (0.6-1.2) mg/dl Est Cr Clr Drug Dosing 26.5 ml/min Est GFR ( Amer) 27.8 Est GFR (Non-Af Amer) 23.9 BUN/Creatinine Ratio 13.3 (10-20) Glucose 205 H (70-99) mg/dl Calcium 9.9 (8.5-10.1) mg/dl Magnesium 1.2 L (1.8-2.4) mg/dl Total Bilirubin 0.4 (0.2-1) mg/dl AST 17 (15-37) U/L ALT 25 (12-78) U/L Alkaline Phosphatase 60 (45-117) U/L Troponin I < 0.015 (0-0.045) ng/ml Total Protein 6.0 L (6.4-8.2) gm/dl Albumin 2.7 L (3.4-5.0) gm/dl Globulin 3.3 (2.5-4.0) gm/dl Albumin/Globulin Ratio 0.8 L (0.9-2) TSH 1.700 (0.300-4.500) uIu/ml Urine Color Yellow Urine Appearance Clear (Clear) Urine pH 6.0 (4.5-7.5) Ur Specific [place] 1.013 (1.000-1.030) Urine Protein Negative (Negative) Urine Glucose (UA) Negative (Negative) Urine Ketones Negative (Negative) Urine Blood Negative (Negative) Urine Nitrite Negative (Negative) Urine Bilirubin Negative (Negative) Urine Urobilinogen Negative (Negative) Ur Leukocyte Esterase Negative (Negative) 06/03/19 Range/Units 22:12 WBC 7.92 (4.8-10.8) K/uL RBC 4.22 (4.2-5.4) M/uL Hgb 12.4 (12.0-16.0) g/dL Hct 39.1 (37-47) % MCV 92.7 (80-100) fL MCH 29.4 (25-34) pg MCHC 31.7 L (32-36) g/dL RDW Std Deviation 47.2 H (36.4-46.3) fL RDW Coeff of Beverley 14.1 (11.5-14.5) % Plt Count 208 (130-400) K/uL MPV 10.1 (7.4-10.4) fL Immature Gran % (Auto) 1.1 % Neut % (Auto) 73.9 % Lymph % (Auto) 10.9 % [place] % (Auto) 7.2 % Eos % (Auto) 6.8 % Baso % (Auto) 0.1 % Immature Gran # (Auto) 0.09 H (0.00-0.02) K/uL Neut # (Auto) 5.85 (1.4-6.5) K/uL Lymph # (Auto) 0.86 L (1.2-3.4) K/uL [place] # (Auto) 0.57 (0.11-0.59) K/uL Eos # (Auto) 0.54 H (0-0.5) K/uL Baso # (Auto) 0.01 (0-0.2) K/uL PT (9.0-12.0) Seconds INR (0.9-1.1) APTT (21.0-31.0) Seconds PTT Ratio Sodium (136-145) mmol/L Potassium (3.5-5.1) mmol/L Chloride (98-107) mmol/L Carbon Dioxide (21-32) mmol/L Anion Gap (3-11) BUN (7-18) mg/dl Creatinine (0.6-1.2) mg/dl Est Cr Clr Drug Dosing ml/min Est GFR ( Amer) Est GFR (Non-Af Amer) BUN/Creatinine Ratio (10-20) Glucose (70-99) mg/dl Calcium (8.5-10.1) mg/dl Magnesium (1.8-2.4) mg/dl Total Bilirubin (0.2-1) mg/dl AST (15-37) U/L ALT (12-78) U/L Alkaline Phosphatase (45-117) U/L Troponin I (0-0.045) ng/ml Total Protein (6.4-8.2) gm/dl Albumin (3.4-5.0) gm/dl Globulin (2.5-4.0) gm/dl Albumin/Globulin Ratio (0.9-2) TSH (0.300-4.500) uIu/ml Urine Color Urine Appearance (Clear) Urine pH (4.5-7.5) Ur Specific [place] (1.000-1.030) Urine Protein (Negative) Urine Glucose (UA) (Negative) Urine Ketones (Negative) Urine Blood (Negative) Urine Nitrite (Negative) Urine Bilirubin (Negative) Urine Urobilinogen (Negative) Ur Leukocyte Esterase (Negative) Supervising Physician Co-Signing Physician Notes Patient was seen and examined by me personally. I reviewed the chart, the orders and discussed the case in detail with Dr. Celia Daugherty MD . I read this H&P and agree with its contents to entirety. Resident Activity Tracking Resident Involvement: Resident Care Provided Care Provided: Adult Hospital Medicine (1) Pneumonia Laterality: unspecified laterality Lung location: unspecified part of lung Pneumonia type: due to unspecified organism Qualified Code(s): J18.9 - Pneumonia, unspecified organism
[2019-06-04 00:22] LABS: Appearance Urine Clear (Clear); Bilirubin Urine Negative (Negative); Blood Urine Negative (Negative); Color Urine Yellow; Glucose Urine UA Negative (Negative); Ketones Urine Negative (Negative); Leukocyte Esterase Urine Negative (Negative); Nitrite Urine Negative (Negative); Protein Urine Negative (Negative); Specific Gravity Urine 1.013 (1.000-1.030); Urobilinogen Urine Negative (Negative)
[2019-06-04] MEDS: MAGNESIUM SULFATE / D5W 1 GM/100 ML BAG IV SCH ×3 (00:54→12:59)
[2019-06-04] MEDS ORDERED: ALUMINUM/MAGNESIUM SUSP 30 ML UDC PO PRN (02:19)
[2019-06-04] MEDS ORDERED: ONDANSETRON INJ 2 MG/ML 2 ML VIAL IV PRN (02:19)
[2019-06-04] MEDS ORDERED: ALBUT/IPRATROP 3MG/0.5MG NEB 3 ML VIAL INH PRN (02:19)
[2019-06-04] MEDS ORDERED: ZOLPIDEM TARTRATE 5 MG TAB PO PRN (02:19)
[2019-06-04] MEDS ORDERED: GLUCOSE 10 TABS/TUBE PO PRN (02:19)
[2019-06-04] MEDS ORDERED: ACETAMINOPHEN 325 MG TAB PO PRN (02:19)
[2019-06-04] MEDS ORDERED: DEXTROSE 50% 50 ML SYRINGE IV PRN (02:19)
[2019-06-04] MEDS ORDERED: CARBOHYDRATES FOR HYPOGLYCEMIA PO PRN (02:19)
[2019-06-04] MEDS ORDERED: GLUCAGON FOR INJ 1 MG VIAL SQ PRN (02:19)
[2019-06-04] MEDS ORDERED: GLUCOSE 40% GEL 15 GM TUBE PO PRN (02:19)
[2019-06-04] MEDS ORDERED: MAGNESIUM HYDROXIDE SUSP 30 ML UDC PO PRN (02:19)
[2019-06-04] MEDS ORDERED: CALAMINE/PRAMOXINE LOTION 180 APPLN/180 ML BTL EXT PRN (02:19)
[2019-06-04] MEDS ORDERED: BENZONATATE 100 MG CAPSULE PO PRN (02:19)
[2019-06-04] MEDS ORDERED: POLYETHYLENE (MIRALAX) 17 GM PACK PO PRN (02:19)
[2019-06-04] MEDS ORDERED: LEVOFLOXACIN/D5W 500 MG/100 ML BAG IV ONE (02:45)
[2019-06-04] MEDS: TRAZODONE HCL 50 MG TAB PO SCH ×2 (03:09→21:19)
--- NOTE | 2019-06-04 03:41 | Billing Data ---
Coding Level of Care Code 31016 Initial Inpt Care Lvl 3
[2019-06-04] MEDS: methylPREDNISolone 40 MG in SYRINGE 0 ML IV SCH ×3 (05:50→21:10)
[2019-06-04] MEDS: LEVOTHYROXINE SODIUM 88 MCG TABLET PO SCH (05:50)
--- NOTE | 2019-06-04 06:53 | CT Scan Report ---
HEAD CT NONCONTRAST CT DOSE: 1004.30 mGy.cm HISTORY: fall TECHNIQUE: Multiaxial CT images of the head were performed without the use of intravenous contrast. A utomated exposure control was utilized for this study. A dose lowering technique was utilized adheri ng to the principles of ALARA. Comparison: Head CT 03/13/2019. Findings: The paranasal sinuses and mastoid air cells are clear. The calvarium and skull base are int act. There is no mass, hematoma, midline shift, acute infarct. White matter hypodensity is nonspecifi c but suggestive of microvascular ischemic change. The ventricles and sulci demonstrate mild age-rela antonio involutional changes. Impression: No acute intracranial abnormality. Atrophy and microvascular ischemic changes. Electronically signed by: Ciro Lopez M.D. 06/04/2019 6:52 AM
[2019-06-04] MEDS: ALBUT/IPRATROP 3MG/0.5MG NEB 3 ML VIAL INH SCH ×3 (07:31→18:56)
--- NOTE | 2019-06-04 07:32 | CT Scan Report ---
CERVICAL SPINE CT CT DOSE: HISTORY: fall TECHNIQUE: Multiaxial CT images of the cervical spine were performed and reformatted in the sagittal and coronal plane without the use of contrast. A dose lowering technique was utilized adhering to th e principles of ALARA. COMPARISON: None. FINDINGS: No fractures. No subluxation. Prevertebral soft tissues and the C1-C2 interval are intact. No pneumothorax. Straightening of the cervical spine. Moderate disc space narrowing at C4-C5, C5-C6, and C6-C7. IMPRESSION: No fractures within the cervical spine. Electronically signed by: Ciro Lopez M.D. 06/04/2019 7:31 AM
[2019-06-04] MEDS: DiphenhydrAMINE HCL 50 MG/ML VIAL IV SCH ×4 (08:02→21:11)
[2019-06-04] MEDS: INSULIN ASPART 100 UNITS/ML 3 ML PEN SC SCH ×4 (08:04→21:15)
[2019-06-04] MEDS: INSULIN GLARGINE SOLOSTAR 100 UNITS/ML 3 ML PEN SC SCH (08:05)
[2019-06-04] MEDS: BusPIRone 15 MG TAB PO SCH ×2 (08:07→21:13)
[2019-06-04] MEDS: NYSTATIN POWDER 15GM BTL EXT SCH ×2 (08:07→21:13)
[2019-06-04] MEDS: ESCITALOPRAM OXALATE 10 MG TAB PO SCH (08:07)
[2019-06-04] MEDS: FAMOTIDINE 20 MG TAB PO SCH ×2 (08:07→21:14)
[2019-06-04] MEDS: CALCIUM 600MG + VIT D 400 IU TAB PO SCH ×2 (08:07→21:13)
[2019-06-04] MEDS: APIXABAN 2.5 MG TAB PO SCH ×2 (08:08→21:13)
[2019-06-04 08:30] LABS: BUN Creatinine Ratio 13.2 (10-20); Calcium 9.8 mg/dl (8.5-10.1); Creatinine Clr Calc Pharmacy 30.8 ml/min; Est GFR (African American) 34.7; Potassium 4.1 mmol/L (3.5-5.1)
[2019-06-04 08:35] LABS: Estimated Average Glucose 203 mg/dl; Hemoglobin A1C 8.7 % (4.5-5.6)
[2019-06-04] MEDS: ARTIFICIAL TEARS OP SCH ×4 (08:37→21:11)
--- NOTE | 2019-06-04 18:38 | Hospitalist Progress Note ---
Date of Service June 04, 2019 Assessment & Plan (1) Fall: * mechanical fall - no focal findings on exam or imaging * Labs significant for moderate increase in her creatinine to 1.89, mildly low magnesium and this was replaced, no fever, no leukocytosis. no anemia. Urinalysis within normal limits. * mentation is at baseline acc to daughter on admission * CT head/neck normal * recent use of benadryl could be contributory to risk of fall as well as oxybuytnin * fall precautions ordered, pt/ot as well. (2) Acute and chronic respiratory failure with hypoxia: * In ED - Pt was found to be hypoxic to high 80s and begun on 2L NC. CXR suggests possible pneumonia. * Pt reportedly has history of recurrent bronchitis/pneumonia. * with recent adverse reaction to doxycycline and oxybutinin (pt's daughter states she has had doxy before, so she doesn't think that is the culprit) nonetheless will treat with levaquin. Pt did actually receive about 4 days worth of doxycycline so clinically to assess for improvement, perhaps only needs 2-3 days more of levaquin * levaquin renally dosed. 500mg x 1, then 250mg daily. * duonebs sched and prn * O2 as needed, wean as tolerated (3) Urticaria: * appears to be 2/2 adv drug reaction - possibly due to oxybutinin, +/- doxycycline * IV benadryl -- discussed at length the risks of antihistamines in the elderly and demented - is a risk pt and family willing to take given the extent of her rash * add PO H2 miah for added antihistamine effect * cont IV steroids * add calamine/cold compress/supportive care (4) Pneumonia: * As above * Levaquin (5) Type 2 diabetes mellitus: * Insulin dependent - on ISS and T2DM diet here. (6) Anxiety and depression: * cont home escitalopram, buspar, trazadone (7) Arthritis: * tylenol prn (8) Allergic rhinitis: * Hx atopy * takes cetirizine PRN. * Will hold while on benadryl so as not to compound sedative/delirium side effects. (9) Dementia: * redirection. One to one as needed. (10) Hypertension: * normally on losartan - HELD in setting of elev creatinine. Ok to resume once resolves. (11) CKD (chronic kidney disease), stage III: * pt has known CKD III, baseline 1.4 - 1.6 * may be due to acute illness vs po steroids * will add maintenance fluids to run for 24 hours * follow bmp * renally dose all meds * HOLD losartan temporarily (12) Dyslipidemia: * cont home simvastatin (13) Hypothyroidism: * Stable. TSH 1.7 * Continue home levothyroxine (14) History of pulmonary embolism: * In 2014. Also, DVT. 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 October 2018 and completed 5 rounds of radiation on 01/03/19 * In remission - no acute issues (16) Hypomagnesemia: * Mag 1.2 on admission. Given 1gm IV * Mag on repeat 1.6 -- supplemented with IV mag * Will repeat lab in AM (17) DVT prophylaxis: * Continue home eliquis Dispo: possible discharge Thursday Subjective Bridge Note: Patient admitted this morning. Upon re-evaluation, patient's main complaint is that of continued pruritic rash that has been present for several days and occurred after starting doxycycline and oxybutunin. She states her breathing isn't bad unless she exerts herself. She states she does not chronically use oxygen at home. Continues to have congestion, productive of yellow sputum. States she is prone to chest infections and coughed up "a chunk of darkened yellow/brownish" sputum. She states she does feel like she has some abdominal fullness but denies any pain or conspitation. She admits to falling yesterday while attempting to get into bed and states she lost her balance. She believes she did hit her head, but states that she is unable to remember a lot of things, especially which medications she takes. She states her daughter Connie knows her medications and the patient lives at [facility]. Physical Exam Respiratory: able to speak in complete sentences; no respiratory distress and no labored breathing Auscultation: + diminished lung sounds and + crackles Cardiovascular: RRR, no murmur, no edema Gastrointestinal (Abdomen): normal bowel sounds, soft, nontender, no hepatosplenomegaly Skin: diffuse -- erythematous maculopapular rash across abdomen, back, bilateral thighs to knees as well as bilateral upper arms Results & Data Vital Signs (Past 12 Hours) Vital Signs Temp Pulse Pulse Resp BP Pulse Ox 06/04/19 16:52 70 06/04/19 14:53 36.7 C 88 20 123/70 93 06/04/19 13:17 72 16 91 06/04/19 11:00 36.8 C 74 20 130/74 91 06/04/19 08:15 71 06/04/19 08:00 36.8 C 75 20 101/55 L 92 06/04/19 07:32 92 H 16 94 Laboratory Results 06/04/19 06/04/19 06/04/19 Range/Units 16:41 11:48 07:41 WBC (4.8-10.8) K/uL RBC (4.2-5.4) M/uL Hgb (12.0-16.0) g/dL Hct (37-47) % MCV (80-100) fL MCH (25-34) pg MCHC (32-36) g/dL RDW Std Deviation (36.4-46.3) fL RDW Coeff of [place] (11.5-14.5) % Plt Count (130-400) K/uL MPV (7.4-10.4) fL Immature Gran % (Auto) % Neut % (Auto) % Lymph % (Auto) % [place] % (Auto) % Eos % (Auto) % Baso % (Auto) % Immature Gran # (Auto) (0.00-0.02) K/uL Neut # (Auto) (1.4-6.5) K/uL Lymph # (Auto) (1.2-3.4) K/uL [place] # (Auto) (0.11-0.59) K/uL Eos # (Auto) (0-0.5) K/uL Baso # (Auto) (0-0.2) K/uL PT (9.0-12.0) Seconds INR (0.9-1.1) APTT (21.0-31.0) Seconds PTT Ratio Sodium (136-145) mmol/L Potassium (3.5-5.1) mmol/L Chloride (98-107) mmol/L Carbon Dioxide (21-32) mmol/L Anion Gap (3-11) BUN (7-18) mg/dl Creatinine (0.6-1.2) mg/dl Est Cr Clr Drug Dosing ml/min Est GFR ( Amer) Est GFR (Non-Af Amer) BUN/Creatinine Ratio (10-20) Glucose (70-99) mg/dl POC Glucose 255 H 282 H 200 H (70-99) Estimat Average Glucose mg/dl Hemoglobin A1c (4.5-5.6) % Calcium (8.5-10.1) mg/dl Magnesium (1.8-2.4) mg/dl Total Bilirubin (0.2-1) mg/dl AST (15-37) U/L ALT (12-78) U/L Alkaline Phosphatase (45-117) U/L Troponin I (0-0.045) ng/ml Total Protein (6.4-8.2) gm/dl Albumin (3.4-5.0) gm/dl Globulin (2.5-4.0) gm/dl Albumin/Globulin Ratio (0.9-2) TSH (0.300-4.500) uIu/ml Urine Color Urine Appearance (Clear) Urine pH (4.5-7.5) Ur Specific [place] (1.000-1.030) Urine Protein (Negative) Urine Glucose (UA) (Negative) Urine Ketones (Negative) Urine Blood (Negative) Urine Nitrite (Negative) Urine Bilirubin (Negative) Urine Urobilinogen (Negative) Ur Leukocyte Esterase (Negative) Nasal Screen MRSA (PCR) (Negative) 06/04/19 06/04/19 06/04/19 Range/Units 07:38 07:38 07:38 WBC (4.8-10.8) K/uL RBC (4.2-5.4) M/uL Hgb (12.0-16.0) g/dL Hct (37-47) % MCV (80-100) fL MCH (25-34) pg MCHC (32-36) g/dL RDW Std Deviation (36.4-46.3) fL RDW Coeff of Beverley (11.5-14.5) % Plt Count (130-400) K/uL MPV (7.4-10.4) fL Immature Gran % (Auto) % Neut % (Auto) % Lymph % (Auto) % [place] % (Auto) % Eos % (Auto) % Baso % (Auto) % Immature Gran # (Auto) (0.00-0.02) K/uL Neut # (Auto) (1.4-6.5) K/uL Lymph # (Auto) (1.2-3.4) K/uL [place] # (Auto) (0.11-0.59) K/uL Eos # (Auto) (0-0.5) K/uL Baso # (Auto) (0-0.2) K/uL PT (9.0-12.0) Seconds INR (0.9-1.1) APTT (21.0-31.0) Seconds PTT Ratio Sodium 141 (136-145) mmol/L Potassium 4.1 (3.5-5.1) mmol/L Chloride 105 (98-107) mmol/L Carbon Dioxide 31 (21-32) mmol/L Anion Gap 5.0 (3-11) BUN 21 H (7-18) mg/dl Creatinine 1.57 H D (0.6-1.2) mg/dl Est Cr Clr Drug Dosing 30.8 ml/min Est GFR ( Amer) 34.7 Est GFR (Non-Af Amer) 30.0 BUN/Creatinine Ratio 13.2 (10-20) Glucose 193 H (70-99) mg/dl POC Glucose (70-99) Estimat Average Glucose 203 mg/dl Hemoglobin A1c 8.7 H (4.5-5.6) % Calcium 9.8 (8.5-10.1) mg/dl Magnesium 1.6 L (1.8-2.4) mg/dl Total Bilirubin (0.2-1) mg/dl AST (15-37) U/L ALT (12-78) U/L Alkaline Phosphatase (45-117) U/L Troponin I (0-0.045) ng/ml Total Protein (6.4-8.2) gm/dl Albumin (3.4-5.0) gm/dl Globulin (2.5-4.0) gm/dl Albumin/Globulin Ratio (0.9-2) TSH (0.300-4.500) uIu/ml Urine Color Urine Appearance (Clear) Urine pH (4.5-7.5) Ur Specific [place] (1.000-1.030) Urine Protein (Negative) Urine Glucose (UA) (Negative) Urine Ketones (Negative) Urine Blood (Negative) Urine Nitrite (Negative) Urine Bilirubin (Negative) Urine Urobilinogen (Negative) Ur Leukocyte Esterase (Negative) Nasal Screen MRSA (PCR) (Negative) 06/04/19 06/04/19 06/04/19 Range/Units 05:45 02:32 00:04 WBC (4.8-10.8) K/uL RBC (4.2-5.4) M/uL Hgb (12.0-16.0) g/dL Hct (37-47) % MCV (80-100) fL MCH (25-34) pg MCHC (32-36) g/dL RDW Std Deviation (36.4-46.3) fL RDW Coeff of Beverley (11.5-14.5) % Plt Count (130-400) K/uL MPV (7.4-10.4) fL Immature Gran % (Auto) % Neut % (Auto) % Lymph % (Auto) % [place] % (Auto) % Eos % (Auto) % Baso % (Auto) % Immature Gran # (Auto) (0.00-0.02) K/uL Neut # (Auto) (1.4-6.5) K/uL Lymph # (Auto) (1.2-3.4) K/uL [place] # (Auto) (0.11-0.59) K/uL Eos # (Auto) (0-0.5) K/uL Baso # (Auto) (0-0.2) K/uL PT (9.0-12.0) Seconds INR (0.9-1.1) APTT (21.0-31.0) Seconds PTT Ratio Sodium (136-145) mmol/L Potassium (3.5-5.1) mmol/L Chloride (98-107) mmol/L Carbon Dioxide (21-32) mmol/L Anion Gap (3-11) BUN (7-18) mg/dl Creatinine (0.6-1.2) mg/dl Est Cr Clr Drug Dosing ml/min Est GFR ( Amer) Est GFR (Non-Af Amer) BUN/Creatinine Ratio (10-20) Glucose (70-99) mg/dl POC Glucose 192 H (70-99) Estimat Average Glucose mg/dl Hemoglobin A1c (4.5-5.6) % Calcium (8.5-10.1) mg/dl Magnesium (1.8-2.4) mg/dl Total Bilirubin (0.2-1) mg/dl AST (15-37) U/L ALT (12-78) U/L Alkaline Phosphatase (45-117) U/L Troponin I (0-0.045) ng/ml Total Protein (6.4-8.2) gm/dl Albumin (3.4-5.0) gm/dl Globulin (2.5-4.0) gm/dl Albumin/Globulin Ratio (0.9-2) TSH (0.300-4.500) uIu/ml Urine Color Yellow Urine Appearance Clear (Clear) Urine pH 6.0 (4.5-7.5) Ur Specific [place] 1.013 (1.000-1.030) Urine Protein Negative (Negative) Urine Glucose (UA) Negative (Negative) Urine Ketones Negative (Negative) Urine Blood Negative (Negative) Urine Nitrite Negative (Negative) Urine Bilirubin Negative (Negative) Urine Urobilinogen Negative (Negative) Ur Leukocyte Esterase Negative (Negative) Nasal Screen MRSA (PCR) Negative (Negative) 06/03/19 06/03/19 06/03/19 Range/Units 22:12 22:12 22:12 WBC 7.92 (4.8-10.8) K/uL RBC 4.22 (4.2-5.4) M/uL Hgb 12.4 (12.0-16.0) g/dL Hct 39.1 (37-47) % MCV 92.7 (80-100) fL MCH 29.4 (25-34) pg MCHC 31.7 L (32-36) g/dL RDW Std Deviation 47.2 H (36.4-46.3) fL RDW Coeff of Beverley 14.1 (11.5-14.5) % Plt Count 208 (130-400) K/uL MPV 10.1 (7.4-10.4) fL Immature Gran % (Auto) 1.1 % Neut % (Auto) 73.9 % Lymph % (Auto) 10.9 % [place] % (Auto) 7.2 % Eos % (Auto) 6.8 % Baso % (Auto) 0.1 % Immature Gran # (Auto) 0.09 H (0.00-0.02) K/uL Neut # (Auto) 5.85 (1.4-6.5) K/uL Lymph # (Auto) 0.86 L (1.2-3.4) K/uL [place] # (Auto) 0.57 (0.11-0.59) K/uL Eos # (Auto) 0.54 H (0-0.5) K/uL Baso # (Auto) 0.01 (0-0.2) K/uL PT 11.2 (9.0-12.0) Seconds INR 1.1 (0.9-1.1) APTT 25.6 (21.0-31.0) Seconds PTT Ratio 0.9 Sodium 139 (136-145) mmol/L Potassium 4.2 (3.5-5.1) mmol/L Chloride 102 (98-107) mmol/L Carbon Dioxide 33 H (21-32) mmol/L Anion Gap 4.0 (3-11) BUN 25 H (7-18) mg/dl Creatinine 1.89 H (0.6-1.2) mg/dl Est Cr Clr Drug Dosing 26.5 ml/min Est GFR ( Amer) 27.8 Est GFR (Non-Af Amer) 23.9 BUN/Creatinine Ratio 13.3 (10-20) Glucose 205 H (70-99) mg/dl POC Glucose (70-99) Estimat Average Glucose mg/dl Hemoglobin A1c (4.5-5.6) % Calcium 9.9 (8.5-10.1) mg/dl Magnesium 1.2 L (1.8-2.4) mg/dl Total Bilirubin 0.4 (0.2-1) mg/dl AST 17 (15-37) U/L ALT 25 (12-78) U/L Alkaline Phosphatase 60 (45-117) U/L Troponin I < 0.015 (0-0.045) ng/ml Total Protein 6.0 L (6.4-8.2) gm/dl Albumin 2.7 L (3.4-5.0) gm/dl Globulin 3.3 (2.5-4.0) gm/dl Albumin/Globulin Ratio 0.8 L (0.9-2) TSH 1.700 (0.300-4.500) uIu/ml Urine Color Urine Appearance (Clear) Urine pH (4.5-7.5) Ur Specific [place] (1.000-1.030) Urine Protein (Negative) Urine Glucose (UA) (Negative) Urine Ketones (Negative) Urine Blood (Negative) Urine Nitrite (Negative) Urine Bilirubin (Negative) Urine Urobilinogen (Negative) Ur Leukocyte Esterase (Negative) Nasal Screen MRSA (PCR) (Negative) PG Care Time/CCT Total # of Minutes Spent Total Time Spent with Patient: Total time spent is greater than 50% in coordination of care (as documented) at patient's floor/unit and/or counseling patient: (1) Pneumonia Laterality: unspecified laterality Lung location: unspecified part of lung Pneumonia type: due to unspecified organism Qualified Code(s): J18.9 - Pneumonia, unspecified organism
[2019-06-04] MEDS: SIMVASTATIN 20 MG TAB PO SCH (21:14)
[2019-06-04] MEDS: LATANOPROST 0.005% OP SOLN 2.5 ML BTL OP SCH (21:14)
[2019-06-05] MEDS: methylPREDNISolone 40 MG in SYRINGE 0 ML IV SCH ×4 (05:51→21:29)
[2019-06-05] MEDS: LEVOTHYROXINE SODIUM 88 MCG TABLET PO SCH (05:51)
[2019-06-05 07:17] LABS: Hematocrit (blood only) 35.2 % (37-47); Hemoglobin 11.2 g/dL (12.0-16.0); Mean Corpuscular Hemoglobin 29.6 pg (25-34); Mean Corpuscular Hgb Conc 31.8 g/dL (32-36); Mean Corpuscular Volume 93.1 fL (80-100); Mean Platelet Volume 10.1 fL (7.4-10.4); Platelet Count 136 K/uL (130-400); RDW Coefficient of Variation 13.8 % (11.5-14.5); RDW Standard Deviation 46.7 fL (36.4-46.3); Red Blood Count 3.78 M/uL (4.2-5.4); White Blood Count 9.09 K/uL (4.8-10.8)
[2019-06-05] MEDS: ALBUT/IPRATROP 3MG/0.5MG NEB 3 ML VIAL INH SCH ×3 (07:37→18:55)
[2019-06-05 07:44] LABS: BUN Creatinine Ratio 15.9 (10-20); Calcium 9.1 mg/dl (8.5-10.1); Creatinine Clr Calc Pharmacy 29.7 ml/min; Est GFR (African American) 33.2; Est GFR (Non-African American) 28.6; Magnesium 1.8 mg/dl (1.8-2.4); Potassium 4.5 mmol/L (3.5-5.1)
[2019-06-05] MEDS: FAMOTIDINE 20 MG TAB PO SCH ×2 (08:00→20:09)
[2019-06-05] MEDS: BusPIRone 15 MG TAB PO SCH ×2 (08:00→20:07)
[2019-06-05] MEDS: ESCITALOPRAM OXALATE 10 MG TAB PO SCH (08:00)
[2019-06-05] MEDS: APIXABAN 2.5 MG TAB PO SCH ×2 (08:01→20:08)
[2019-06-05] MEDS: CALCIUM 600MG + VIT D 400 IU TAB PO SCH ×2 (08:01→20:09)
[2019-06-05] MEDS: NYSTATIN POWDER 15GM BTL EXT SCH ×2 (08:01→20:08)
[2019-06-05] MEDS: ARTIFICIAL TEARS OP SCH ×4 (08:02→20:12)
[2019-06-05] MEDS: INSULIN GLARGINE SOLOSTAR 100 UNITS/ML 3 ML PEN SC SCH (08:03)
[2019-06-05] MEDS: INSULIN ASPART 100 UNITS/ML 3 ML PEN SC SCH ×4 (08:04→20:12)
[2019-06-05] MEDS ORDERED: COUGH DROP (SUGAR FREE) LOZ 24 LOZ/1 BOX BUCCAL PRN (11:14)
[2019-06-05] MEDS: levoFLOXacin 250 MG TABLET PO SCH (12:19)
--- NOTE | 2019-06-05 13:11 | Hospitalist Progress Note ---
Date of Service June 05, 2019 Assessment & Plan (1) Fall: * mechanical fall - no focal findings on exam or imaging * Labs significant for moderate increase in her creatinine to 1.89, mildly low magnesium and this was replaced, no fever, no leukocytosis. no anemia. Urinalysis within normal limits. * mentation is at baseline acc to daughter on admission * CT head/neck normal * recent use of benadryl could be contributory to risk of fall as well as oxybuytnin * fall precautions ordered, pt/ot as well. * B1 level pending * Thiamine supplementation (2) Acute and chronic respiratory failure with hypoxia: * STABLE -- currently 97% on RA * In ED - Pt was found to be hypoxic to high 80s and begun on 2L NC. CXR suggests possible pneumonia. * Pt reportedly has history of recurrent bronchitis/pneumonia. * with recent adverse reaction to doxycycline and oxybutinin (pt's daughter states she has had doxy before, so she doesn't think that is the culprit) nonetheless will treat with levaquin --> Pt did actually receive about 4 days worth of doxycycline so clinically to assess for improvement, given 500mg Levaquin, then 250mg daily to be completed 06/07 * Duonebs sched and prn * O2 as needed, wean as tolerated (3) Urticaria: * Improving * Appears to be 2/2 adv drug reaction - possibly due to oxybutinin, +/- doxycycline * IV Benadryl -- discussed at length the risks of antihistamines in the elderly and demented - is a risk pt and family willing to take given the extent of her rash * Pepcid added for H2 antihistamine effect * Cont IV steroids * add calamine/cold compress/supportive care (4) Pneumonia: * As above- Levaquin (5) Type 2 diabetes mellitus: * Insulin dependent - on ISS and T2DM diet here. * Adjustments to CR/CF due to elevated sugars * Continue to monitor (6) Anxiety and depression: * cont home escitalopram, buspar, trazadone (7) Arthritis: * tylenol prn (8) Allergic rhinitis: * Hx atopy * takes cetirizine PRN. * Will hold while on benadryl so as not to compound sedative/delirium side effects. (9) Dementia: * Redirection. One to one as needed. (10) Hypertension: * STABLE * BP currently 132/77 * Normally on losartan - HELD in setting of elev creatinine * As Creat 1.63 today, will continue to hold -- restart when improved (11) CKD (chronic kidney disease), stage III: * Pt has known CKD III, baseline 1.4 - 1.6. Creat 1.89 on admission. * Initially given maintenance fluids, with improvement to 1.57. * Currently slightly elevated from baseline, but stable -- > 1.63 -- losartan on hold, however BP stable as above. Will given additional IVF @ 80mL for 500mL total * Renally dose medications when appropriate * BMP in AM (12) Dyslipidemia: * cont home simvastatin (13) Hypothyroidism: * Stable. TSH 1.7 * Continue home levothyroxine (14) History of pulmonary embolism: * In 2014. Also, DVT. 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 Given 1gm IV and PO. Mag 1.6 yesterday and given 2gm IV * Stable at 1.8 today (17) DVT prophylaxis: * Continue home eliquis Dispo: possible discharge Thursday Subjective Patient evaluated this morning. She was resting peacefully without oxygen when I entered the room. O2 saturation 90% on RA. Upon awakening, patient states she had a nice nap, had slept well through the night. She states her itchiness has improved and she hasn't noticed it bothering her as much. Only complaint currently is that of dry mouth. She states she had cough drops in her pocket but she doesn't know where they went. She states her cough is improved. Denies history of sleep apnea. Review of Systems Review of Systems: All systems reviewed & are unremarkable except as noted in HPI & below Constitutional: no fever and no chills generalized malaise, but improved from yesterday Ear, Nose, Mouth, Throat: no sore throat dry mouth Respiratory: + cough and + dyspnea on exertion; no wheezing Cardiovascular: no chest pain, no palpitations and no edema Gastrointestinal: no abdominal pain, no nausea, no vomiting and no constipation Genitourinary: + urinary incontinence; no dysuria Neurologic: + memory loss Physical Exam Eyes: + anicteric sclerae and PERRL Neck: trachea midline, no thyromegaly Respiratory: able to speak in complete sentences; no respiratory distress and no labored breathing Auscultation: + diminished lung sounds and + crackles Cardiovascular: RRR, no murmur, no edema Gastrointestinal (Abdomen): normal bowel sounds, soft, nontender, no hepatosplenomegaly Skin: diffuse, but improved -- erythematous maculopapular rash across abdomen, back, bilateral thighs to knees as well as bilateral upper arms and around neck Results & Data Vital Signs (Past 12 Hours) Vital Signs Temp Pulse Resp BP BP Pulse Ox Pulse Ox 06/05/19 12:00 36.7 C 71 20 132/77 93 06/05/19 10:36 95 06/05/19 07:37 65 16 90 06/05/19 07:00 36.6 C 77 20 143/74 H 90 06/05/19 02:40 36.3 C L 89 18 162/71 H 92 Laboratory Results 06/05/19 06/05/19 06/05/19 Range/Units 11:54 11:53 07:53 WBC (4.8-10.8) K/uL RBC (4.2-5.4) M/uL Hgb (12.0-16.0) g/dL Hct (37-47) % MCV (80-100) fL MCH (25-34) pg MCHC (32-36) g/dL RDW Std Deviation (36.4-46.3) fL RDW Coeff of [place] (11.5-14.5) % Plt Count (130-400) K/uL MPV (7.4-10.4) fL Sodium (136-145) mmol/L Potassium (3.5-5.1) mmol/L Chloride (98-107) mmol/L Carbon Dioxide (21-32) mmol/L Anion Gap (3-11) BUN (7-18) mg/dl Creatinine (0.6-1.2) mg/dl Est Cr Clr Drug Dosing ml/min Est GFR ( Amer) Est GFR (Non-Af Amer) BUN/Creatinine Ratio (10-20) Glucose (70-99) mg/dl POC Glucose 311 H* 324 H* 257 H (70-99) Calcium (8.5-10.1) mg/dl Magnesium (1.8-2.4) mg/dl 06/05/19 06/05/19 06/04/19 Range/Units 06:51 06:51 20:12 WBC 9.09 (4.8-10.8) K/uL RBC 3.78 L (4.2-5.4) M/uL Hgb 11.2 L (12.0-16.0) g/dL Hct 35.2 L (37-47) % MCV 93.1 (80-100) fL MCH 29.6 (25-34) pg MCHC 31.8 L (32-36) g/dL RDW Std Deviation 46.7 H (36.4-46.3) fL RDW Coeff of [place] 13.8 (11.5-14.5) % Plt Count 136 (130-400) K/uL MPV 10.1 (7.4-10.4) fL Sodium 140 (136-145) mmol/L Potassium 4.5 (3.5-5.1) mmol/L Chloride 106 (98-107) mmol/L Carbon Dioxide 30 (21-32) mmol/L Anion Gap 4.0 (3-11) BUN 26 H (7-18) mg/dl Creatinine 1.63 H (0.6-1.2) mg/dl Est Cr Clr Drug Dosing 29.7 ml/min Est GFR ( Amer) 33.2 Est GFR (Non-Af Amer) 28.6 BUN/Creatinine Ratio 15.9 (10-20) Glucose 300 H (70-99) mg/dl POC Glucose 265 H (70-99) Calcium 9.1 (8.5-10.1) mg/dl Magnesium 1.8 (1.8-2.4) mg/dl 06/04/19 Range/Units 16:41 WBC (4.8-10.8) K/uL RBC (4.2-5.4) M/uL Hgb (12.0-16.0) g/dL Hct (37-47) % MCV (80-100) fL MCH (25-34) pg MCHC (32-36) g/dL RDW Std Deviation (36.4-46.3) fL RDW Coeff of [place] (11.5-14.5) % Plt Count (130-400) K/uL MPV (7.4-10.4) fL Sodium (136-145) mmol/L Potassium (3.5-5.1) mmol/L Chloride (98-107) mmol/L Carbon Dioxide (21-32) mmol/L Anion Gap (3-11) BUN (7-18) mg/dl Creatinine (0.6-1.2) mg/dl Est Cr Clr Drug Dosing ml/min Est GFR ( Amer) Est GFR (Non-Af Amer) BUN/Creatinine Ratio (10-20) Glucose (70-99) mg/dl POC Glucose 255 H (70-99) Calcium (8.5-10.1) mg/dl Magnesium (1.8-2.4) mg/dl PG Care Time/CCT Total # of Minutes Spent Total Time Spent with Patient: Total time spent is greater than 50% in coordination of care (as documented) at patient's floor/unit and/or counseling patient: (1) Pneumonia Laterality: unspecified laterality Lung location: unspecified part of lung Pneumonia type: due to unspecified organism Qualified Code(s): J18.9 - Pneumonia, unspecified organism
[2019-06-05] MEDS: THIAMINE HCL 50 MG TABLET PO SCH (13:54)
[2019-06-05] MEDS: SODIUM CHLORIDE 0.9% 1000ML 1,000 ML IV SCH (13:54)
[2019-06-05] MEDS ORDERED: INSULIN ASPART 100 UNITS/ML 3 ML PEN SC ONE (16:52)
[2019-06-05] MEDS: SIMVASTATIN 20 MG TAB PO SCH (20:06)
[2019-06-05] MEDS: LATANOPROST 0.005% OP SOLN 2.5 ML BTL OP SCH (20:07)
[2019-06-05] MEDS: TRAZODONE HCL 50 MG TAB PO SCH (20:09)
[2019-06-06] MEDS: SODIUM CHLORIDE 0.9% 1000ML 1,000 ML IV SCH ×2 (05:13→16:46)
[2019-06-06] MEDS: methylPREDNISolone 40 MG in SYRINGE 0 ML IV SCH (05:14)
[2019-06-06] MEDS: LEVOTHYROXINE SODIUM 88 MCG TABLET PO SCH (05:16)
[2019-06-06] MEDS: ALBUT/IPRATROP 3MG/0.5MG NEB 3 ML VIAL INH SCH ×3 (07:08→19:22)
[2019-06-06] MEDS: FAMOTIDINE 20 MG TAB PO SCH ×2 (07:34→21:19)
[2019-06-06] MEDS: CALCIUM 600MG + VIT D 400 IU TAB PO SCH ×2 (07:34→21:17)
[2019-06-06] MEDS: THIAMINE HCL 50 MG TABLET PO SCH (07:34)
[2019-06-06] MEDS: APIXABAN 2.5 MG TAB PO SCH ×2 (07:35→21:18)
[2019-06-06] MEDS: ESCITALOPRAM OXALATE 10 MG TAB PO SCH (07:35)
[2019-06-06] MEDS: NYSTATIN POWDER 15GM BTL EXT SCH ×2 (07:36→21:18)
[2019-06-06] MEDS: BusPIRone 15 MG TAB PO SCH ×2 (07:36→21:17)
[2019-06-06] MEDS: ARTIFICIAL TEARS OP SCH ×4 (07:37→21:17)
[2019-06-06] MEDS: INSULIN GLARGINE SOLOSTAR 100 UNITS/ML 3 ML PEN SC SCH (09:02)
[2019-06-06] MEDS: INSULIN ASPART 100 UNITS/ML 3 ML PEN SC SCH ×4 (09:03→21:19)
[2019-06-06] MEDS: levoFLOXacin 250 MG TABLET PO SCH (12:17)
[2019-06-06] MEDS ORDERED: HALOPERIDOL LACTATE 5 MG/ML 1 ML VIAL IM STA (14:49)
[2019-06-06] MEDS ORDERED: HALOPERIDOL LACTATE 5 MG/ML 1 ML VIAL ONE (18:33)
--- NOTE | 2019-06-06 19:43 | Hospitalist Progress Note ---
Date of Service June 06, 2019 Assessment & Plan (1) Fall: -Mechanical fall -no acute focal findings -reports chronic issues with dizziness especially with position changes -PT/OT -consideration for SNF prior to return to personal care; resides at [facility] (2) Acute and chronic respiratory failure with hypoxia: -Has remained on room air throughout the day -earlier in the day denied shortness of breath and even in confused states respiratory status remained stable without distress -In ED patient noted to be hypoxic in high 80s; CXR with possible pneumonia versus atelectasis; has history of recurrent bronchitis/pneumonia --Recently started on doxycycline and received approximately 4 days of dosing -Started on Levaquin during admission however due to confusion this could possibly contribute and therefore will convert to Cefdinir with renal adjustments -Continue nebulizers; Tessalon Perles as needed; supplemental oxygen as needed -Overnight pulse oximetry testing reveals no significant desaturations that would qualify for nighttime oxygen use (3) Pneumonia: -Treatment as above (4) Urticaria: -Improving and denies pruritus -Possibility of relation to drug reaction whether oxybutynin versus doxycycline -Initially given Benadryl and IV steroids -due to increasing confusion and hyperglycemia these have been removed -Continue supportive measures with calamine/cold compress (5) Type 2 diabetes mellitus: -Currently with hyperglycemia -this is likely secondary to IV steroids -Continue Lantus 32 units daily and will slightly loosen range of sliding scale due to cessation of steroids and continue to monitor for further adjustments - did discuss with pharmacy today (6) Encephalopathy: -Suspect this could be related to multiple medications known to cause confusion in elderly population superimposed on known memory deficits -Patient was a code oconnor on 06/06 around 1800 as she wanted to leave the hospital and stated she would walk home and she was difficult to redirect and reorient -Utilized Haldol x2 dosing this afternoon due to significant agitation and concern for safety due to quickly ambulating with known history of falls -Suspect possibility of hyperglycemia, IV steroids, Benadryl, and possibly even Levaquin as all contributors to causing confusion in elderly patients -will hold further steroids and will continue to manage hyperglycemia, will convert Levaquin to Cefdinir -Continue one-on-one observation; Ativan IV as needed for further agitation -we will try to avoid use as this can increase confusion however will try to avoid further Haldol usage through the night (7) Dementia: -Baseline dementia and was baseline in AM on 06/06 but developed further confusion throughout the afternoon as managed above (8) Hypertension: -Stable -Losartan on hold due to creatinine (9) CKD (chronic kidney disease), stage III: -Baseline creatinine 1.4-1.6 -slightly elevated at 1.89 on admission but currently at 1.63 -Continue to monitor with labs (10) Dyslipidemia: -Simvastatin 20 mg nightly (11) Hypothyroidism: -Stable -TSH 1.7 -Continue levothyroxine 88 mcg daily (12) History of pulmonary embolism: -2014; history of DVT -Continue Eliquis 2.5 mg twice a day for renal adjustment (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 Subjective Patient assessed on multiple occasions today. In the a.m. patient was slightly confused but pleasant and cooperative. She stated today she felt better than she had. She denied any breathing issues and saturating appropriately on room air. Overnight and into the a.m. her BSGs are noted to be elevated. She began getting more confused. She could not remember me visiting her this morning. She kept reiterating that she came here for testing and has yet to get results. She also fixated on concerns that she would get her granddaughters in trouble. She continue to get up from her chair and walk within the room without her walker. She states she did have some dizziness on a couple of these occasions. She would easily directed back to the chair. However then fixated on the fact that her clothes were locked away. Due to increasing agitation and continuously getting out of bed and further difficulty redirecting Haldol 2.5 mg IM given which did seem to calm her down. Around 1800, patient was a code oconnor as she exited her room and was heading towards the elevators. Upon entering the floor, patient was seated in the second floor waiting room. She reports that she wants to go home and she plans to walk home. She occasionally thinks she is in [facility] but then thought she was in [place]. Earlier in the day, she did call the [facility] police due to being kept here against her will. She states she feels she is being locked-in like her close that have been locked away. She was given her nightgown which was in a bag she had with her. She did not want to return to her room. She stated she just wanted to go home. Tried to talk to her that it is cold outside and we cannot let her walk to [place]. This did cause some further verbal agitation. Myself and a security operations manager sat with her to discuss her concerns. She would intermittently joke with us and laugh. However quickly would return to wanting to walk home. She continued to refuse to return to her assigned room. She accused visitors passing by of insulting her. Ultimately had to place her in a wheelchair and take her to her room. An additional Haldol IM given. One-on-one at bedside who was conversing with patient earlier in the day seem to help calm her further down this evening. Spoke to daughter and granddaughter Blanca earlier in the day. Did attempt to call Blanca to let her know of room change as she plans to visit with patient tomorrow morning. Updated daughter Margret about the repeat episode of confusion this evening and room change. Review of Systems Constitutional: no fever and no chills Respiratory: + cough; no dyspnea Cardiovascular: + lightheadedness (Intermittently while walking); no chest pain Gastrointestinal: no abdominal pain, no nausea and no vomiting Integumentary: + rash; no pruritus Neurologic: + falls Psychiatric: + confusion Physical Exam Constitutional: well developed and well nourished; no acute distress Eyes: + anicteric sclerae Neck: trachea midline Respiratory: normal respiratory effort Auscultation: + diminished lung sounds Cardiovascular: RRR, no murmur, no edema Gastrointestinal (Abdomen): Inspection/Auscultation: normal bowel sounds Percussion/Palpation: abdomen soft; abdomen nontender Musculoskeletal: Head/Neck/Chest: normocephalic and head atraumatic Skin: + rash Neurologic: moves all extremities and + confused Psychiatric: Orientation: alert and oriented to person; + not oriented to place, + not oriented to time and + uncooperative Affect: + labile affect Mood: + anxious mood and + irritable mood Thought Content: + preoccupation Insight: + limited insight Judgement: + poor judgement Results & Data Vital Signs (Past 12 Hours) Vital Signs Temp Pulse Pulse Resp BP Pulse Ox 06/06/19 15:47 95 H 20 154/84 H 94 06/06/19 13:25 84 18 94 06/06/19 11:08 36.8 C 74 16 123/74 94 06/06/19 10:57 93 PG Care Time/CCT Total # of Minutes Spent Total Time Spent with Patient: Total time spent is greater than 50% in coordination of care (as documented) at patient's floor/unit and/or counseling patient: (1) Pneumonia Laterality: unspecified laterality Lung location: unspecified part of lung Pneumonia type: due to unspecified organism Qualified Code(s): J18.9 - Pneumonia, unspecified organism
[2019-06-06] MEDS ORDERED: LORazepam 0.5 MG/1 ML VIAL IV PRN (20:05)
[2019-06-06] MEDS: TRAZODONE HCL 50 MG TAB PO SCH (21:17)
[2019-06-06] MEDS: LATANOPROST 0.005% OP SOLN 2.5 ML BTL OP SCH (21:19)
[2019-06-06] MEDS: SIMVASTATIN 20 MG TAB PO SCH (21:19)
[2019-06-07] MEDS: LEVOTHYROXINE SODIUM 88 MCG TABLET PO SCH (06:39)
[2019-06-07] MEDS: ALBUT/IPRATROP 3MG/0.5MG NEB 3 ML VIAL INH SCH ×3 (07:35→19:54)
[2019-06-07 07:37] LABS: Creatinine Clr Calc Pharmacy 31.1 ml/min; Est GFR (African American) 34.7
[2019-06-07] MEDS: INSULIN ASPART 100 UNITS/ML 3 ML PEN SC SCH ×4 (08:30→21:15)
[2019-06-07] MEDS: CEFDINIR 300 MG CAP PO SCH ×2 (08:35→20:20)
[2019-06-07] MEDS: FAMOTIDINE 20 MG TAB PO SCH ×2 (08:38→20:21)
[2019-06-07] MEDS: THIAMINE HCL 50 MG TABLET PO SCH (08:38)
[2019-06-07] MEDS: BusPIRone 15 MG TAB PO SCH ×2 (08:39→20:17)
[2019-06-07] MEDS: APIXABAN 2.5 MG TAB PO SCH ×2 (08:39→20:19)
[2019-06-07] MEDS: CALCIUM 600MG + VIT D 400 IU TAB PO SCH ×2 (08:39→20:17)
[2019-06-07] MEDS: ESCITALOPRAM OXALATE 10 MG TAB PO SCH (08:39)
[2019-06-07] MEDS: NYSTATIN POWDER 15GM BTL EXT SCH ×2 (08:40→20:19)
[2019-06-07] MEDS: INSULIN GLARGINE SOLOSTAR 100 UNITS/ML 3 ML PEN SC SCH (08:40)
[2019-06-07] MEDS ORDERED: predniSONE 20 MG TAB PO SCH (09:00)
[2019-06-07] MEDS: ARTIFICIAL TEARS OP SCH ×4 (09:00→21:14)
[2019-06-07] MEDS: TRAZODONE HCL 50 MG TAB PO SCH (20:17)
[2019-06-07] MEDS: LATANOPROST 0.005% OP SOLN 2.5 ML BTL OP SCH (20:21)
[2019-06-07] MEDS: SIMVASTATIN 20 MG TAB PO SCH (20:22)
--- NOTE | 2019-06-07 21:48 | Hospitalist Progress Note ---
Date of Service June 07, 2019 Assessment & Plan (1) Fall: -Mechanical fall -no acute focal findings -reports chronic issues with dizziness especially with position changes but not occurring today per patient report -PT/OT -consideration for SNF prior to return to personal care; resides at [facility] (2) Acute and chronic respiratory failure with hypoxia: -Has remained on room air -In ED patient noted to be hypoxic in high 80s; CXR with possible pneumonia versus atelectasis; has history of recurrent bronchitis/pneumonia --Recently started on doxycycline and received approximately 4 days of dosing -Started on Levaquin during admission however due to confusion this could possibly contribute and therefore will convert to Cefdinir to complete course -Continue nebulizers; Tessalon Perles as needed; supplemental oxygen as needed -Overnight pulse oximetry testing reveals no significant desaturations that would qualify for nighttime oxygen use (3) Pneumonia: -Treatment as above (4) Urticaria: -Improving and denies pruritus -Possibility of relation to drug reaction whether oxybutynin versus doxycycline -Initially given Benadryl and IV steroids -due to increasing confusion and hyperglycemia these have been removed -Continue supportive measures with calamine/cold compress (5) Type 2 diabetes mellitus: -Hyperglycemia resolved and this was likely secondary to IV steroids -Continue Lantus 32 units daily and will slightly loosen range of sliding scale due to cessation of steroids and continue to monitor for further adjustments - did discuss with pharmacy today (6) Encephalopathy: -Suspect this could be related to multiple medications known to cause co nfusion in elderly population superimposed on known memory deficits -Patient was a code oconnor on 06/06 around 1800 as she wanted to leave the hospital and stated she would walk home and she was difficult to redirect and reorient -Utilized Haldol x2 dosings due to significant agitation and concern for safety due to quickly ambulating with known history of falls -Suspect possibility of hyperglycemia, IV steroids, Benadryl, and possibly even Levaquin as all contributors to causing confusion in elderly patients -will hold further steroids and will continue to manage hyperglycemia, will convert Leva margarita to Cefdinir -No need for one-on-one today; Ativan IV as needed for further agitation if it would be needed but would avoid given this could increase confusion (7) Dementia: -Baseline dementia - appears to be at baseline today (8) Hypertension: -Stable -Resume Losartan 25 mg daily (9) CKD (chronic kidney disease), stage III: -Baseline creatinine 1.4-1.6 -slightly elevated at 1.89 on admission but currently at baseline -Continue to monitor with labs (10) Dyslipidemia: -Simvastatin 20 mg nightly (11) Hypothyroidism: -Stable -TSH 1.7 -Continue levothyroxine 88 mcg daily (12) History of pulmonary embolism: -2014; history of DVT -Continue Eliquis 2.5 mg twice a day for renal adjustment (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 Visited her on multiple occasions today. This AM her granddaughter Blanca was present and we assisted patient to bathroom. Patient states on multiple walks she has not had any dizziness. She does have intermittent confusion/forgetfulness but mentation is much improved from yesterday's code carlos. BSGs are improving and removed agents that could be contributing to confusion. Breathing remains stable and remaining on RA. Planning on returning to SNF at [facility] prior to personal care Review of Systems Constitutional: no fever and no chills Respiratory: + cough; no dyspnea Cardiovascular: no chest pain and no lightheadedness Gastrointestinal: no abdominal pain, no nausea, no vomiting, no constipation and no diarrhea/loose stools Genitourinary: no dysuria Integumentary: + rash (improving); no pruritus Neurologic: + falls Psychiatric: + confusion (intermittent - more forgetful then anything) Physical Exam Constitutional: well developed and well nourished; no acute distress Eyes: + anicteric sclerae Neck: trachea midline Respiratory: normal respiratory effort Auscultation: + diminished lung sounds Cardiovascular: RRR, no murmur, no edema Gastrointestinal (Abdomen): Inspection/Auscultation: normal bowel sounds Percussion/Palpation: abdomen soft; abdomen nontender Musculoskeletal: Head/Neck/Chest: normocephalic and head atraumatic Skin: mild rash pale pink but still present on back/arms Neurologic: moves all extremities Psychiatric: Orientation: alert, oriented to person and cooperative; + not oriented to place and + not oriented to time Eye Contact: good eye contact Affect: euthymic affect Results & Data Vital Signs (Past 12 Hours) Vital Signs Temp Pulse Resp BP Pulse Ox 06/07/19 19:54 78 16 96 06/07/19 19:00 36.7 C 76 18 121/70 94 06/07/19 15:37 36.8 C 73 20 131/67 96 06/07/19 11:00 36.8 C 70 20 145/71 H 96 PG Care Time/CCT Total # of Minutes Spent Total Time Spent with Patient: Total time spent is greater than 50% in coordination of care (as documented) at patient's floor/unit and/or counseling patient: (1) Pneumonia Laterality: unspecified laterality Lung location: unspecified part of lung Pneumonia type: due to unspecified organism Qualified Code(s): J18.9 - Pneumonia, unspecified organism
[2019-06-08] MEDS: LEVOTHYROXINE SODIUM 88 MCG TABLET PO SCH (06:39)
[2019-06-08] MEDS: ALBUT/IPRATROP 3MG/0.5MG NEB 3 ML VIAL INH SCH ×2 (06:53→13:30)
[2019-06-08] MEDS: THIAMINE HCL 50 MG TABLET PO SCH (08:36)
[2019-06-08] MEDS: INSULIN ASPART 100 UNITS/ML 3 ML PEN SC SCH ×2 (08:36→12:34)
[2019-06-08] MEDS: ARTIFICIAL TEARS OP SCH ×2 (08:36→12:34)
[2019-06-08] MEDS: CEFDINIR 300 MG CAP PO SCH (08:36)
[2019-06-08] MEDS: CALCIUM 600MG + VIT D 400 IU TAB PO SCH (08:37)
[2019-06-08] MEDS: BusPIRone 15 MG TAB PO SCH (08:37)
[2019-06-08] MEDS: APIXABAN 2.5 MG TAB PO SCH (08:37)
[2019-06-08] MEDS: FAMOTIDINE 20 MG TAB PO SCH (08:37)
[2019-06-08] MEDS: ESCITALOPRAM OXALATE 10 MG TAB PO SCH (08:37)
[2019-06-08] MEDS: NYSTATIN POWDER 15GM BTL EXT SCH (08:38)
[2019-06-08] MEDS ORDERED: INSULIN GLARGINE SOLOSTAR 100 UNITS/ML 3 ML PEN SC SCH (09:00)
[2019-06-08] MEDS ORDERED: LOSARTAN POTASSIUM 25 MG TAB PO SCH (09:00)
[2019-06-08 11:27] VITALS: BP 137/72; PULSE 88; TEMP 98.4; O2SAT 94
--- NOTE | 2019-06-08 13:55 | Discharge Summary ---
Date of Service June 08, 2019 Admission HPI Per Admitting Provider This is an 83 yo F who presents from [facility] with daughter who provides most of history - with cough x 1 week, treated initially with doxycycline x 4 days. At that same PCP visit had been started on oxybutinin due to incontinence. Pt developed diffuse rash and pruritus. Doxycycline as well as the oxybutinin was stopped, and benadryl and medrol dose raheem was begun. Then pt fell in her room at , does not have good recollection of the event and was sent to ED for evaluation. In the ED, CT head and cervical spine with no acute changes. Pt was found to be hypoxic to high 80s and begun on 2L NC. CXR suggests possible pneumonia. Pt reportedly has history of recurrent bronchitis/pneumonia. Labs significant for moderate increase in her creatinine to 1.89, mildly low magnesium and this was replaced, no fever, no leukocytosis. no anemia. Urinalysis within normal limits. PMH 1. Atopy - takes cetirizine PRN. Asthma, frequent bronchitis/PNAs. 2. Anxiety and depression - on escitalopram, buspar, trazadone 3. Arthritis - tylenol prn 4. Cardiomyopathy (Chronic) 5. CKD (chronic kidney disease), stage III 6. Dementia 7. 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 9. History of DVT (deep vein thrombosis) - on eliquis 10. Hypertension - controlled on losartan 11. Hypothyroidism - controlled on levothyroxine 12. 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 H/o BSO with B/L SLN Biopsy and Right pelvic lymph node dissection and cystoscopy (Dr. Buffy Mayo in [place]) 2. S/P appendectomy 3. S/P tonsillectomy SH: lives at [facility]. Daughter is involved in her care and advocates for her. Principal Diagnosis Community Acquired Pneumonia Discharge Exam Constitutional well developed and well nourished; no acute distress Eyes + anicteric sclerae Neck trachea midline Respiratory normal respiratory effort Auscultation: + diminished lung sounds Cardiovascular RRR, no murmur, no edema Gastrointestinal (Abdomen) Inspection/Auscultation: normal bowel sounds Percussion/Palpation: abdomen soft; abdomen nontender Musculoskeletal Head/Neck/Chest: normocephalic and head atraumatic Skin + rash (minimal) Neurologic moves all extremities Psychiatric Orientation: alert, oriented to person and cooperative; + not oriented to place and + not oriented to time Eye Contact: good eye contact Affect: euthymic affect Discharge Data Allergies Allergy/AdvReac Type Severity Reaction Status Date / Time codeine Allergy Unknown CAN'T Verified 06/02/19 14:03 REMEMBER fluticasone Allergy Unknown CAN'T Verified 06/02/19 14:03 REMEMBER Macrolide Antibiotics Allergy Unknown PT UNSURE Verified 06/02/19 14:03 salmeterol Allergy Unknown CAN'T Verified 06/02/19 14:03 REMEMBER Sulfa (Sulfonamide Allergy Unknown PT UNSURE Verified 06/02/19 14:03 Antibiotics) troleandomycin Allergy Unknown CAN'T Verified 06/02/19 14:03 REMEMBER Consultations 06/03/19 23:51 ED Decision to Admit Stat 06/04/19 02:19 Consult Case Management - Discharge Planning Routine Ordered Studies 06/03/19 22:36 CT cervical spine wo con Urgent CT head/brain wo con Urgent Hospital Course (1) Fall: -Mechanical fall -no acute focal findings -reports chronic issues with dizziness especially with position changes but not occurring x 2 days per patient -PT/OT -consideration for SNF prior to return to personal care; resides at [facility] (2) Acute and chronic respiratory failure with hypoxia: -Has remained on room air -In ED patient noted to be hypoxic in high 80s; CXR with possible pneumonia versus atelectasis; has history of recurrent bronchitis/pneumonia --Recently started on doxycycline and received approximately 4 days of dosing -Started on Levaquin during admission however due to confusion this could possibly contribute and therefore will convert to Cefdinir to complete course - needs one dose evening of 06/08 to complete -Continue nebulizers/inhalers -Overnight pulse oximetry testing reveals no significant desaturations that would qualify for nighttime oxygen use (3) Pneumonia: -Treatment as above (4) Urticaria: -Improving and denies pruritus -Possibility of relation to drug reaction whether oxybutynin versus doxycycline -Initially given Benadryl and IV steroids -due to increasing confusion and hyperglycemia these have been removed -Continue supportive measures with calamine/cold compress (5) Type 2 diabetes mellitus: -Hyperglycemia resolved and this was likely secondary to IV steroids -Continue home dosing of Lantus and SSI (6) Encephalopathy: -Suspect this could be related to multiple medications known to cause confusion in elderly population superimposed on known memory deficits -Patient was a code oconnor on 06/06 around 1800 as she wanted to leave the hospital and stated she would walk home and she was difficult to redirect and reorient -Utilized Haldol x2 dosings due to significant agitation and concern for safety due to quickly ambulating with known history of falls -Suspect possibility of hyperglycemia, IV steroids, Benadryl, and possibly even Levaquin as all contributors to causing confusion in elderly patients -held further steroids and will continue to manage hyperglycemia, converted Levaquin to Cefdinir -No need for one-on-one x 2 days (7) Dementia: -Baseline dementia - appears to be at baseline today (8) Hypertension: -Stable -Resume Losartan 25 mg daily (9) CKD (chronic kidney disease), stage III: -Baseline creatinine 1.4-1.6 -slightly elevated at 1.89 on admission but currently at baseline (10) Dyslipidemia: -Simvastatin 20 mg nightly (11) Hypothyroidism: -Stable -TSH 1.7 -Continue levothyroxine 88 mcg daily (12) History of pulmonary embolism: -2014; history of DVT -Continue Eliquis 2.5 mg twice a day for renal adjustment (13) Endometrioid adenocarcinoma of uterus: - S/P resection October 2018 -performed at [facility] -completed radiation x5 rounds on 01/03/2019 -Currently in remission-no acute issues (14) Anxiety and depression: -Continue BuSpar 30 mg twice daily, escitalopram 10 mg daily, and trazodone nightly (15) DVT prophylaxis: - Eliquis Disposition: Mentation drastically improved and appearing at baseline; plan for SNF prior to returning to [facility] care at [facility] Total Time Total Time Spent Total Time Spent (In Minutes): Greater than 30 minutes Discharge Plan Discharge Items Patient Disposition: Transfer Snf Fac Reason For Visit: CAP Discharge Diagnosis: Pneumonia Activity: Resume your previous activity Non-emergency contact: Primary Care Provider Call non-emergency contact if: you have any medication questions, your symptoms worsen and you have a fever Follow-up/Referrals: Eve Weaver DO [Primary Care Provider] - Diet: Carb Consistent or DM2 Addtl Attending Provider Instructions: Fall: -Mechanical fall -no acute focal findings -reports chronic issues with dizziness especially with position changes but not occurring yesterday or today per patient report -PT/OT -consideration for SNF prior to return to personal care - B1 level pending and this can be low in older individuals. The lab is still pending since it is a send out lab. Did use Thiamine supplementation which is safe to continue Hypoxia: -Has remained on room air -In ED patient noted to be hypoxic in high 80s; CXR with possible pneumonia versus atelectasis; has history of recurrent bronchitis/pneumonia --Recently started on doxycycline and received approximately 4 days of dosing prior to admission -Started on Levaquin during admission however due to confusion ( this could possibly contributed) and therefore converted to Cefdinir and course would finish today with one more pill -Overnight pulse oximetry testing reveals no significant desaturations that would qualify for nighttime oxygen use Pneumonia: -Treatment as above Urticaria: -Improving and denies pruritus -Possibility of relation to drug reaction whether oxybutynin versus doxycycline -Initially given Benadryl and IV steroids -due to increasing confusion and hyperglycemia these have been removed -Continue supportive measures with calamine/cold compress Type 2 diabetes mellitus: -Hyperglycemia resolved and this was likely secondary to IV steroids -Continue home dosing of insulins and monitor for needs for adjustments - Lantus 28 units daily in AM and Insulin Lispro sliding scale as used by personal care side. Our records state this is the scale they use. If needed please coordinate with personal care side for further adjustments SLIDING SCALE: BLOOD SUGAR <150 NO ADDITIONAL INSULIN, 150-190 = 1 UNITS 191-230 = 2 UNITS 231-270 = 3 UNITS 271-310 = 4 UNITS 311-350 = 5 UNITS 351-390 = 6 UNITS 391-430 = 7 UNITS 431-470 = 8 UNITS >470 = 9 UNITS GIVE 15 MINS PRIOR TO EACH MEAL Encephalopathy/Confusion: -Suspect this could be related to multiple medications known to cause confusion in elderly superimposed on known forgetfulness -Patient was a code oconnor on 06/06 around 1800 as she wanted to leave the hospital and stated she would walk home and she was difficult to redirect and reorient -Utilized Haldol x2 dosing due to significant agitation and concern for safety due to quickly ambulating with known history of falls -Suspect possibility of hyperglycemia, IV steroids, Benadryl, and possibly even Levaquin as all contributors to causing confusion in her - since removing these medications she has been pleasant and at baseline mentation -She uses Benadryl as outpatient and this could be used if necessary but be mindful it can increase confusion in the aging population but if she does commonly use this at home this confusion was likely a multifactorial cause Dementia: -Baseline dementia - appears to be at baseline today Hypertension: -Stable -Resume Losartan 25 mg daily CKD (chronic kidney disease), stage III: -Baseline creatinine 1.4-1.6 -slightly elevated at 1.89 on admission but currently at baseline Dyslipidemia: -Simvastatin 20 mg nightly Hypothyroidism: -Stable -TSH 1.7 -Continue levothyroxine 88 mcg daily History of pulmonary embolism: -2014; history of DVT -Continue Eliquis 2.5 mg twice a day for renal adjustment Endometrioid adenocarcinoma of uterus: - S/P resection October 2018 -performed at [facility] -completed radiation x5 rounds on 01/03/2019 -Currently in remission-no acute issues Anxiety and depression: -Continue BuSpar 30 mg twice daily, escitalopram 10 mg daily, and trazodone nightly Pending Studies at Discharge: No Stand-Alone Forms: My [facility] Skilled Items Patient informed of condition?: Yes DNR: No Discharge Level of Care: Skilled Communicable Disease: No Discharge Prognosis: Stable Lines: None Urinary Catheter: No Medications and DC Order Prescriptions: New cefdinir 300 mg Capsule 300 mg PO BID Qty: 1 RF: 0 thiamine HCl (vitamin B1) [Vitamin B-1] 50 mg Tablet 50 mg PO QAM 30 Days Qty: 30 RF: 0 Continued Lantus U-100 Insulin 100 unit/mL solution 28 units subcut QAM RF: 0 benzonatate [Tessalon Perles] 100 mg capsule 100 mg PO TID PRN (Reason: cough) Qty: 30 RF: 0 Caltrate 600-D Plus Minerals 600 mg calcium- 800 unit-50 mg tablet 1 tab PO BID RF: 0 cetirizine 5 mg tablet 2.5 mg PO QAM PRN (Reason: Allergic Symptoms) RF: 0 nystatin 100,000 unit/gram powder 1 appln TOP BID RF: 0 latanoprost [Xalatan] 0.005 % Drops 1 drp OPHTHALMIC (EYE) HS RF: 0 trazodone 50 mg Tablet 50 mg PO HS RF: 0 levothyroxine 88 mcg Tablet 88 mcg PO QAM RF: 0 simvastatin 20 mg Tablet 20 mg PO HS RF: 0 losartan 25 mg Tablet 25 mg PO QAM RF: 0 folic acid 1 mg Tablet 1 mg PO QAM RF: 0 escitalopram oxalate 10 mg Tablet 10 mg PO QAM RF: 0 acetaminophen [Tylenol Extra Strength] 500 mg tablet 500 mg PO TID RF: 0 Eliquis 2.5 mg Tablet 2.5 mg PO BID RF: 0 ipratropium-albuterol 0.5 mg-3 mg(2.5 mg base)/3 mL Solution For Nebulization 3 ml INHALATION TID RF: 0 Artificial Tears (cmc) 1 % Drops 1 drp OPHTHALMIC (EYE) QID RF: 0 diphenhydramine HCl 25 mg Capsule 25 mg PO Q8H PRN (Reason: Itching) RF: 0 acetaminophen [Tylenol] 325 mg Tablet 650 mg PO Q4H MDD 3G PRN (Reason: .MILD PAIN) RF: 0 buspirone 30 mg tablet 30 mg PO BID RF: 0 ipratropium-albuterol 0.5 mg-3 mg(2.5 mg base)/3 mL solution for nebulization 3 ml inhalation Q4H PRN (Reason: Shortness Of Breath Or Wheezing) RF: 0 insulin lispro [Humalog U-100 Insulin] 100 unit/mL solution 1 sliding scale dose subcut AC RF: 0 Discontinued methylprednisolone [Medrol (Raheem)] 4 mg tablets,dose pack See Rx Instructions .Route .COMPLEX Qty: 21 RF: 0 Discharge Orders: Discharge Order (Routine); Ordered 06/08/19 Ordered By: Blanca Haley Admission Data Admit Date/Time: 06/04/19 01:23 Attending Provider: Clyde Donnelly Admit Provider: Celia Daugherty Primary Care Provider: Eve Weaver Other Providers: Humphrey Schulte ; Shruthi [place] Other Interventions: Discharge Summary Assessment (RN) Last Done: 06/08/19 12:10 DC Date/Time DO NOT enter until pt leaves facility: 06/08/19 13:40 Supervising Physician Co-Signing Physician Notes Attending note: patient seen and examined with Blanca Haley PA-C. I agree with her discharge summary. I personally reviewed the labs and imaging findings. patient doing better today, breathing comfortably, mentation appears to be at baseline eating her meals - Fall and weakness: improving slowly with therapy but needs SNF rehab prior to returning to personal care - Pneumonia: complete full course of antibiotics on 06/08, no fever/chills, WBC normal - Metabolic encephalopathy: multi-factorial, improved with treatment of infection and frequent re-orientation stable for d/c at this time
== END 2019-06-08 13:40 | DRG 193 ==
LOC: ED 21:53 → 2W 06-04 01:23 → SUATTDRO 06-04 01:23 → 2W 06-04 02:02

== ENCOUNTER 2019-10-25 19:32 | Inpatient (IN) ==
--- NOTE | 2019-10-25 19:51 | Emergency Department Note ---
History of Present Illness General Chief complaint: Altered Mental Status Stated complaint: AMS, CONFUSION Time Seen by Provider: 10/25/19 19:34 Source: patient and EMS Mode of arrival: EMS Limitations: altered mental status History of Present Illness Provider complaint: Confusion Onset (ago): hour(s) Location: head Severity: moderate Quality: + other (Cannot think straight) Relieved By: + none Associated symptoms: + cough; no chest pain, no fever/chills, no headaches, no nausea/vomiting and no shortness of breath This is a 89-year-old female with a history of dementia presenting with increased confusion starting this morning. The patient states that she slipped out of bed this morning. She did not fall hard or hit her head but she states that she slid down on her side. She denies any headache, chest pain, shortness of breath, abdominal pain, hip pain, recent travel or known exposure to COVID- 19. She does state that she has some low back pain. She has had a nonp roductive cough today but states she is not coughing now. She feels like she cannot think straight and is confused. She is on Eliquis for history of DVT. Home Medications Home Medications Medication Instructions Recorded Confirmed Type escitalopram oxalate 10 mg PO QAM 08/04/18 10/25/19 History folic acid 1 mg PO QAM 08/04/18 10/25/19 History latanoprost [Xalatan] 1 drp OPB HS 08/04/18 10/25/19 History levothyroxine 88 mcg PO QAM 08/04/18 10/25/19 History simvastatin 20 mg PO HS 08/04/18 10/25/19 History trazodone 50 mg PO HS 08/04/18 10/25/19 History buspirone 30 mg PO BID 12/12/18 10/25/19 History acetaminophen 500 mg tablet 500 mg PO TID 12/16/18 10/25/19 History calcium 600 mg-D3 800 unit-mag11 1 tab PO BID tab 02/10/19 10/25/19 History 50 jf-fywg-qnokrc-cristofer-s.borat tablet insulin lispro 100 unit/mL 1 sliding scale dose SUBCUT AC ml 02/10/19 10/25/19 History subcutaneous solution Eliquis 2.5 mg PO BID 03/13/19 10/25/19 History insulin glargine 100 unit/mL 28 units SUBCUT QAM ml 03/23/19 10/25/19 History subcutaneous solution Artificial Tears (cmc) 1 drp OPB QID 06/04/19 10/25/19 History ipratropium-albuterol 3 ml INHALATION TID 06/04/19 10/25/19 History thiamine HCl (vitamin B1) 50 mg 50 mg PO QAM 08/03/19 10/25/19 History tablet losartan 25 mg tablet 25 mg PO QAM 08/10/19 10/25/19 History benzonatate [Tessalon Perles] 100 mg PO TID PRN 10/25/19 10/25/19 History cetirizine 5 mg PO DAILY 10/25/19 10/25/19 History diphenhydramine HCl 25 mg PO Q6H PRN 10/25/19 10/25/19 History Allergies Allergy/AdvReac Type Severity Reaction Status Date / Time doxycycline Allergy Mild Rash Verified 10/25/19 20:45 oxybutynin Allergy Mild Rash Verified 08/10/19 10:16 codeine Allergy Unknown Unknown Verified 10/25/19 20:42 fluticasone Allergy Unknown Unknown Verified 10/25/19 20:42 Macrolide Antibiotics Allergy Unknown Unknown Verified 10/25/19 20:42 salmeterol Allergy Unknown Unknown Verified 10/25/19 20:42 Sulfa (Sulfonamide Allergy Unknown Unknown Verified 10/25/19 20:42 Antibiotics) troleandomycin Allergy Unknown Unknown Verified 10/25/19 20:42 Past Med/Surg History Medical History Allergic rhinitis Anxiety and depression Arthritis Asthma Cardiomyopathy (Chronic) CKD (chronic kidney disease), stage III Dementia Dyslipidemia Endometrioid adenocarcinoma of uterus (Chronic) History of DVT (deep vein thrombosis) (2014) "LLE 2014" History of pulmonary embolism (2014) "2014" Hypertension Hypothyroidism Hypothyroidism Type 2 diabetes mellitus (Chronic) Urinary incontinence Vertigo Vitamin D deficiency Surgical History H/O cataract extraction History of robot-assisted laparoscopic hysterectomy (Resolved 10/2018) 11/10/18 - with BSO with B/L SLN Biopsy and Right pelvic lymph node dissection and cystoscopy (Dr. Buffy Mayo in [place]) S/P appendectomy as a child S/P foot surgery (2004) S/P tonsillectomy and adenoidectomy Family History Mother , Passed in 80s/90's of old age No problems noted. Father , Passed in 70's of black lung complications ([facility]bert [facility]) Lung disease Sister , Passed in 80's of unknown No problems noted. Sister , Passed in 60's of unknown No problems noted. Brother , Passed in 60's of unknown (alcoholic) Hypertension Brother , Passed in late 70's of unknown Lung disease Daughter No problems noted. Son No problems noted. Son No problems noted. Son No problems noted. 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 and A total of 10 systems reviewed and were otherwise negative Physical Exam Vital Signs Vital Signs - 24 hr 10/25/19 19:32 10/25/19 19:47 10/25/19 20:40 Temperature 37.6 C H Temperature Source Rectal Pulse Rate 86 78 Pulse Rate [Finger] Respiratory Rate 20 23 Respiratory Effort / Characteristics Non-Labored Spontaneous Respiratory Depth Normal Blood Pressure 172/82 H 167/82 H Blood Pressure [Right Arm] Blood Pressure Mean 112 116 Blood Pressure Mean [Right Arm] Pulse Oximetry 94 95 93 Oxygen Delivery Method Room Air Room Air Sepsis Action Taken by Nursing No Action Required 10/25/19 21:00 10/25/19 21:39 Temperature Temperature Source Pulse Rate Pulse Rate [Finger] 74 89 Respiratory Rate 20 22 Respiratory Effort / Characteristics Non-Labored Spontaneous Non-Labored Spontaneous Respiratory Depth Normal Normal Blood Pressure Blood Pressure [Right Arm] 168/94 H 145/72 H Blood Pressure Mean Blood Pressure Mean [Right Arm] 118 96 Pulse Oximetry 93 95 Oxygen Delivery Method Room Air Room Air Sepsis Action Taken by Nursing Constitutional: Vital signs reviewed. Eyes: Pupils are equal round reactive to light. Conjunctiva are noninjected. ENT: Pharynx is clear without erythema or exudate. Mucous membranes are moist. Neck supple without meningeal signs. No midline tenderness to the cervical spi ne. Respiratory: Clear to auscultation bilaterally. Breath sounds are equal bilaterally. Cardiovascular: Regular rate and rhythm. No rubs or gallops. GI: Soft, nondistended and nontender. Bowel sounds are present. Musculoskeletal: No peripheral edema. No lower extremity tenderness. No hip tenderness. Integumentary: No cyanosis. or jaundice. Neurological: The patient is awake and alert. No focal deficits. Easily conversant. Psychiatric: Slightly anxious. Course Administered Medications Discontinued Medications Ceftriaxone Sodium (Rocephin) 2,000 mg in 70 mls @ 140 mls/hr IV NOW STA Stop: 10/25/19 21:51 Last Infusion: 10/25/19 22:12 Dose: 0 mls/hr Documented by: [id number] Admin: 10/25/19 21:37 Dose: 140 mls/hr Documented by: [id number] Medical Decision Making Differential Diagnosis Infection, UTI, pneumonia, ICH, metabolic derangement, dementia Medical Records Attestation: I reviewed the patient's medical records. I did perform a limited focused review of portions of the patient's old chart on the electronic medical record. The patient was admitted to the hospital in May of last year for community-acquired pneumonia. Home Medications Current Medication List: was personally reviewed by me Laboratory Data Attestation: I reviewed the patient's lab results. Result diagrams: 10/25/19 19:54 10/25/19 19:54 Lab Results 10/25/19 10/25/19 10/25/19 Range/Units 19:50 19:50 19:51 WBC (4.8-10.8) K/uL RBC (4.2-5.4) M/uL Hgb (12.0-16.0) g/dL Hct (37-47) % MCV (80-100) fL MCH (25-34) pg MCHC (32-36) g/dL RDW Std Deviation (36.4-46.3) fL RDW Coeff of Beverley (11.5-14.5) % Plt Count (130-400) K/uL MPV (7.4-10.4) fL Immature Gran % (Auto) % Neut % (Auto) % Lymph % (Auto) % Wagoner % (Auto) % Eos % (Auto) % Baso % (Auto) % Immature Gran # (Auto) (0.00-0.02) K/uL Neut # (Auto) (1.4-6.5) K/uL Lymph # (Auto) (1.2-3.4) K/uL Wagoner # (Auto) (0.11-0.59) K/uL Eos # (Auto) (0-0.5) K/uL Baso # (Auto) (0-0.2) K/uL PT (9.0-12.0) Seconds INR (0.9-1.1) APTT (21.0-31.0) Seconds PTT Ratio Sodium (136-145) mmol/L Potassium (3.5-5.1) mmol/L Chloride (98-107) mmol/L Carbon Dioxide (21-32) mmol/L Anion Gap (3-11) BUN (7-18) mg/dl Creatinine (0.6-1.2) mg/dl Est Cr Clr Drug Dosing ml/min Est GFR ( Amer) Est GFR (Non-Af Amer) BUN/Creatinine Ratio (10-20) Glucose (70-99) mg/dl POC Glucose 186 H (70-99) mg/dl Lactate (0.4-2.0) mmol/L Calcium (8.5-10.1) mg/dl Magnesium (1.8-2.4) mg/dl Total Bilirubin (0.2-1) mg/dl AST (15-37) U/L ALT (12-78) U/L Alkaline Phosphatase (45-117) U/L Troponin I (0-0.045) ng/ml Total Protein (6.4-8.2) gm/dl Albumin (3.4-5.0) gm/dl Globulin (2.5-4.0) gm/dl Albumin/Globulin Ratio (0.9-2) Urine Color Yellow Urine Appearance Clear (Clear) Urine pH 6.0 (4.5-7.5) Ur Specific [place] 1.026 (1.000-1.030) Urine Protein Trace H (Negative) Urine Glucose (UA) 1+ H (Negative) Urine Ketones Negative (Negative) Urine Blood Negative (Negative) Urine Nitrite Positive A (Negative) Urine Bilirubin Negative (Negative) Urine Urobilinogen Negative (Negative) Ur Leukocyte Esterase Trace H (Negative) Urine WBC (Auto) 5-10 H (0-5) /hpf Urine RBC (Auto) 0-4 (0-4) /hpf U Hyaline Cast (Auto) 1-5 (0-5) /lpf U Epithel Cells (Auto) 5-10 H (0-5) /lpf Urine Bacteria (Auto) 4+ H (Negative) Influenza Type A (PCR) Neg for Influ A (Neg) Influenza Type B (PCR) Neg for Influ B (Neg) 10/25/19 10/25/19 10/25/19 Range/Units 19:54 19:54 19:54 WBC 7.32 (4.8-10.8) K/uL RBC 4.22 (4.2-5.4) M/uL Hgb 12.0 (12.0-16.0) g/dL Hct 37.7 (37-47) % MCV 89.3 (80-100) fL MCH 28.4 (25-34) pg MCHC 31.8 L (32-36) g/dL RDW Std Deviation 45.4 (36.4-46.3) fL RDW Coeff of Beverley 13.9 (11.5-14.5) % Plt Count 231 (130-400) K/uL MPV 10.1 (7.4-10.4) fL Immature Gran % (Auto) 0.4 % Neut % (Auto) 75.9 % Lymph % (Auto) 10.1 % Wagoner % (Auto) 10.7 % Eos % (Auto) 2.6 % Baso % (Auto) 0.3 % Immature Gran # (Auto) 0.03 H (0.00-0.02) K/uL Neut # (Auto) 5.56 (1.4-6.5) K/uL Lymph # (Auto) 0.74 L (1.2-3.4) K/uL Wagoner # (Auto) 0.78 H (0.11-0.59) K/uL Eos # (Auto) 0.19 (0-0.5) K/uL Baso # (Auto) 0.02 (0-0.2) K/uL PT (9.0-12.0) Seconds INR (0.9-1.1) APTT (21.0-31.0) Seconds PTT Ratio Sodium 139 (136-145) mmol/L Potassium 3.8 (3.5-5.1) mmol/L Chloride 101 (98-107) mmol/L Carbon Dioxide 32 (21-32) mmol/L Anion Gap 7.0 (3-11) BUN 24 H (7-18) mg/dl Creatinine 1.65 H (0.6-1.2) mg/dl Est Cr Clr Drug Dosing 30.3 ml/min Est GFR ( Amer) 32.5 Est GFR (Non-Af Amer) 28.0 BUN/Creatinine Ratio 14.3 (10-20) Glucose 207 H (70-99) mg/dl POC Glucose (70-99) mg/dl Lactate 2.5 H* (0.4-2.0) mmol/L Calcium 9.3 (8.5-10.1) mg/dl Magnesium (1.8-2.4) mg/dl Total Bilirubin 0.3 (0.2-1) mg/dl AST 14 L (15-37) U/L ALT 20 (12-78) U/L Alkaline Phosphatase 79 (45-117) U/L Troponin I (0-0.045) ng/ml Total Protein 6.5 (6.4-8.2) gm/dl Albumin 3.1 L (3.4-5.0) gm/dl Globulin 3.4 (2.5-4.0) gm/dl Albumin/Globulin Ratio 0.9 (0.9-2) Urine Color Urine Appearance (Clear) Urine pH (4.5-7.5) Ur Specific [place] (1.000-1.030) Urine Protein (Negative) Urine Glucose (UA) (Negative) Urine Ketones (Negative) Urine Blood (Negative) Urine Nitrite (Negative) Urine Bilirubin (Negative) Urine Urobilinogen (Negative) Ur Leukocyte Esterase (Negative) Urine WBC (Auto) (0-5) /hpf Urine RBC (Auto) (0-4) /hpf U Hyaline Cast (Auto) (0-5) /lpf U Epithel Cells (Auto) (0-5) /lpf Urine Bacteria (Auto) (Negative) Influenza Type A (PCR) (Neg) Influenza Type B (PCR) (Neg) 10/25/19 10/25/19 Range/Units 19:54 19:54 WBC (4.8-10.8) K/uL RBC (4.2-5.4) M/uL Hgb (12.0-16.0) g/dL Hct (37-47) % MCV (80-100) fL MCH (25-34) pg MCHC (32-36) g/dL RDW Std Deviation (36.4-46.3) fL RDW Coeff of Beverley (11.5-14.5) % Plt Count (130-400) K/uL MPV (7.4-10.4) fL Immature Gran % (Auto) % Neut % (Auto) % Lymph % (Auto) % Wagoner % (Auto) % Eos % (Auto) % Baso % (Auto) % Immature Gran # (Auto) (0.00-0.02) K/uL Neut # (Auto) (1.4-6.5) K/uL Lymph # (Auto) (1.2-3.4) K/uL Wagoner # (Auto) (0.11-0.59) K/uL Eos # (Auto) (0-0.5) K/uL Baso # (Auto) (0-0.2) K/uL PT 11.9 (9.0-12.0) Seconds INR 1.1 (0.9-1.1) APTT 27.3 (21.0-31.0) Seconds PTT Ratio 1.0 Sodium (136-145) mmol/L Potassium (3.5-5.1) mmol/L Chloride (98-107) mmol/L Carbon Dioxide (21-32) mmol/L Anion Gap (3-11) BUN (7-18) mg/dl Creatinine (0.6-1.2) mg/dl Est Cr Clr Drug Dosing ml/min Est GFR ( Amer) Est GFR (Non-Af Amer) BUN/Creatinine Ratio (10-20) Glucose (70-99) mg/dl POC Glucose (70-99) mg/dl Lactate (0.4-2.0) mmol/L Calcium (8.5-10.1) mg/dl Magnesium 1.4 L (1.8-2.4) mg/dl Total Bilirubin (0.2-1) mg/dl AST (15-37) U/L ALT (12-78) U/L Alkaline Phosphatase (45-117) U/L Troponin I < 0.015 (0-0.045) ng/ml Total Protein (6.4-8.2) gm/dl Albumin (3.4-5.0) gm/dl Globulin (2.5-4.0) gm/dl Albumin/Globulin Ratio (0.9-2) Urine Color Urine Appearance (Clear) Urine pH (4.5-7.5) Ur Specific [place] (1.000-1.030) Urine Protein (Negative) Urine Glucose (UA) (Negative) Urine Ketones (Negative) Urine Blood (Negative) Urine Nitrite (Negative) Urine Bilirubin (Negative) Urine Urobilinogen (Negative) Ur Leukocyte Esterase (Negative) Urine WBC (Auto) (0-5) /hpf Urine RBC (Auto) (0-4) /hpf U Hyaline Cast (Auto) (0-5) /lpf U Epithel Cells (Auto) (0-5) /lpf Urine Bacteria (Auto) (Negative) Influenza Type A (PCR) (Neg) Influenza Type B (PCR) (Neg) Imaging Data Radiologist's Impression: XR pelvis 1-2V routine CLINICAL HISTORY: fall eval for injury trauma COMPARISON: None. DISCUSSION: The bones and joint spaces appear intact. There is no evidence of fracture, dislocation or bony disease. There is no evidence for soft tissue swelling. Moderate degenerative change of the hips as well as degenerative change of the low lumbar spine IMPRESSION: Degenerative change. No acute process. ACT 112: Negative or not required by law. The above report was generated using voice recognition software. It may contain grammatical, syntax or spelling errors. Electronically signed by: North Easton M.D. 10/25/2019 8:37 PM R lumbar spine 2-3V CLINICAL HISTORY: fall eval for injury trauma COMPARISON STUDY: No previous studies for comparison. FINDINGS: Considerable degenerative disc change at the entire lumbar region. Vertebral body stature is normal. No evidence for compression deformity. Osteopenia. Probable gallstones. IMPRESSION: Severe degenerative disc changes at the entire lumbar region. No acute process. Osteopenia. ACT 112: Negative or not required by law. The above report was generated using voice recognition software. It may contain grammatical, syntax or spelling errors. Electronically signed by: North Easton M.D. 10/25/2019 8:[address] head/brain wo con CT DOSE: 638.56 mGycm HISTORY: Mental status change fall eval for bleed TECHNIQUE: Multiaxial CT images of the head were performed without the use of intravenous contrast. A dose lowering technique was utilized adhering to the principles of ALARA. Comparison: 06/03/2018 Findings: The paranasal sinuses and mastoid air cells are clear. The calvarium and skull base are intact. The ventricles and sulci are within normal limits. There is no mass, hematoma, midline shift, or acute infarct. Impression: No acute intracranial abnormality. Age-related atrophy and chronic small vessel change. ACT 112: Negative or not required by law. The above report was generated using voice recognition software. It may contain grammatical, syntax or spelling errors. Electronically signed by: North Easton M.D. 10/25/2019 8:23 PM XR chest 1V portable CLINICAL HISTORY: SEPSIS dyspnea COMPARISON STUDY: 06/03/2019 FINDINGS: Moderate cardiomegaly. Slight fullness of the pulmonary vasculature. Minimal infiltrate left base. IMPRESSION: Small parenchymal infiltrate left base. Cardiomegaly. ACT 112: Negative or not required by law. The above report was generated using voice recognition software. It may contain grammatical, syntax or spelling errors. Electronically signed by: North Easton M.D. 10/25/2019 8:36 PM ECG Data Attestation: I personally reviewed and interpreted this ECG as follows: Indication: + other (Altered mental status) Rate (beats per minute): 91 Rhythm: + normal sinus ECG Intervals/blocks: + Normal QRS ECG ST segments: no ST elevation ECG Findings: no PVCs Blood Pressure Blood Pressure Findings: Elevated blood pressure Blood Pressure Disposition: Referred to patients primary care provider MDM Narrative I did evaluate the patient as noted above. The patient is presenting with confusion. I did obtain history from the patient as well as EMS who brought her in. She does have a low-grade temperature here. IV access was established. I did order and personally review the patient's 12-lead EKG as described above. I did order and personally reviewed the images of the patient's chest, pelvis and lumbar spine x-rays as described above. Patient has no signs of fracture or dislocation. She does have a left lower lobe infiltrate. I did order a catheterized urine analysis. She does have a UTI. Blood cultures were ordered. I did order and review the patient's blood work as noted in the electronic med ical record. CBC does not show leukocytosis or anemia. Her lactic acid is elevated but she does not appear septic. Creatinine is at baseline. I did order a CT of the head. I did review the images myself as well as the radiology report as described above. There is no evidence of acute abnormality. I did discuss the test results with the patient and her daughter who is now at the bedside. Patient's daughter states that the patient lives at [facility] and there have been no cases of COVID-19 there. She also mentions that when she was given antibiotics in May she developed a rash and itching and so they had to give her steroids which made her very confused and agitated. L mjoking at the old chart she was given Levaquin and so I avoided Levaquin and gave her ceftriaxone 2 g IV. The patient has a curb 65 score of 3 and will require hospitalization. I did discuss the case with the hospitalist and classification case manager. Impression & Plan Left lower lobe pneumonia, Acute UTI, Acute alteration in mental status, Fall, Anticoagulated Discharge Plan Visit Data Chief Complaint: Altered Mental Status Stated Complaint: AMS, CONFUSION ED Provider: Andrzej Mueller Discharge Problem: Left lower lobe pneumonia, Acute UTI, Acute alteration in mental status, Fall, Anticoagulated Patient Disposition: Being Evaluated by Hospitalist Condition: Good Forms Stand Alone Forms: My [employer] Prescriptions Prescriptions: No Action thiamine HCl (vitamin B1) [Vitamin B-1] 50 mg tablet 50 mg PO QAM RF: 0 Lantus U-100 Insulin 100 unit/mL solution 28 units subcut QAM RF: 0 losartan 25 mg tablet 25 mg PO QAM RF: 0 Caltrate 600-D Plus Minerals 600 mg calcium- 800 unit-50 mg tablet 1 tab PO BID RF: 0 latanoprost [Xalatan] 0.005 % Drops 1 drp OPB HS RF: 0 trazodone 50 mg Tablet 50 mg PO HS RF: 0 levothyroxine 88 mcg Tablet 88 mcg PO QAM RF: 0 simvastatin 20 mg Tablet 20 mg PO HS RF: 0 folic acid 1 mg Tablet 1 mg PO QAM RF: 0 escitalopram oxalate 10 mg Tablet 10 mg PO QAM RF: 0 acetaminophen [Tylenol Extra Strength] 500 mg tablet 500 mg PO TID RF: 0 Eliquis 2.5 mg Tablet 2.5 mg PO BID RF: 0 ipratropium-albuterol 0.5 mg-3 mg(2.5 mg base)/3 mL Solution For Nebulization 3 ml INHALATION TID RF: 0 Artificial Tears (cmc) 1 % Drops 1 drp OPB QID RF: 0 buspirone 30 mg tablet 30 mg PO BID RF: 0 insulin lispro [Humalog U-100 Insulin] 100 unit/mL solution 1 sliding scale dose subcut AC RF: 0 cetirizine 10 mg Tablet 5 mg PO DAILY RF: 0 diphenhydramine HCl 25 mg Tablet 25 mg PO Q6H PRN (Reason: Itching) RF: 0 benzonatate [Tessalon Perles] 100 mg capsule 100 mg PO TID PRN (Reason: Cough) RF: 0 Referrals Referrals: Eve Weaver DO [Primary Care Provider] - Discharge Problem: Left lower lobe pneumonia Qualifiers: Pneumonia type: due to unspecified organism Qualified Code(s): J18.9 - Pneumonia, unspecified organism Fall Qualifiers: Encounter type: initial encounter Qualified Code(s): W19.XXXA - Unspecified fall, initial encounter
[2019-10-25 20:23] LABS: Basophils # (auto) 0.02 K/uL (0-0.2); Basophils % (auto) 0.3 %; Eosinophils # (auto) 0.19 K/uL (0-0.5); Eosinophils % (auto) 2.6 %; Hematocrit (blood only) 37.7 % (37-47); Immature Granulocytes # (auto) 0.03 K/uL (0.00-0.02); Immature Granulocytes % (auto) 0.4 %; Lymphocytes # (auto) 0.74 K/uL (1.2-3.4); Lymphocytes % (auto) 10.1 %; Mean Corpuscular Hemoglobin 28.4 pg (25-34); Mean Corpuscular Hgb Conc 31.8 g/dL (32-36); Mean Corpuscular Volume 89.3 fL (80-100); Mean Platelet Volume 10.1 fL (7.4-10.4); Monocytes # (auto) 0.78 K/uL (0.11-0.59); Monocytes % (auto) 10.7 %; Neutrophils # (auto) 5.56 K/uL (1.4-6.5); Neutrophils % (auto) 75.9 %; Platelet Count 231 K/uL (130-400); RDW Coefficient of Variation 13.9 % (11.5-14.5); RDW Standard Deviation 45.4 fL (36.4-46.3); Red Blood Count 4.22 M/uL (4.2-5.4); White Blood Count 7.32 K/uL (4.8-10.8)
--- NOTE | 2019-10-25 20:24 | CT Scan Report ---
CT head/brain wo con CT DOSE: 638.56 mGycm HISTORY: Mental status change fall eval for bleed TECHNIQUE: Multiaxial CT images of the head were performed without the use of intravenous contrast. A dose lowering technique was utilized adhering to the principles of ALARA. Comparison: 06/03/2018 Findings: The paranasal sinuses and mastoid air cells are clear. The calvarium and skull base are int act. The ventricles and sulci are within normal limits. There is no mass, hematoma, midline shift, or acute infarct. Impression: No acute intracranial abnormality. Age-related atrophy and chronic small vessel change. ACT 112: Negative or not required by law. The above report was generated using voice recognition software. It may contain grammatical, syntax or spelling errors. Electronically signed by: North Easton M.D. 10/25/2019 8:23 PM
--- NOTE | 2019-10-25 20:37 | XRay Report ---
XR chest 1V portable CLINICAL HISTORY: SEPSIS dyspnea COMPARISON STUDY: 06/03/2019 FINDINGS: Moderate cardiomegaly. Slight fullness of the pulmonary vasculature. Minimal infiltrate left base. IMPRESSION: Small parenchymal infiltrate left base. Cardiomegaly. ACT 112: Negative or not required by law. The above report was generated using voice recognition software. It may contain grammatical, syntax or spelling errors. Electronically signed by: North Easton M.D. 10/25/2019 8:36 PM
--- NOTE | 2019-10-25 20:38 | XRay Report ---
XR pelvis 1-2V routine CLINICAL HISTORY: fall eval for injury trauma COMPARISON: None. DISCUSSION: The bones and joint spaces appear intact. There is no evidence of fracture, dislocation o r bony disease. There is no evidence for soft tissue swelling. Moderate degenerative change of the hi ps as well as degenerative change of the low lumbar spine IMPRESSION: Degenerative change. No acute process. ACT 112: Negative or not required by law. The above report was generated using voice recognition software. It may contain grammatical, syntax or spelling errors. Electronically signed by: North Easton M.D. 10/25/2019 8:37 PM
--- NOTE | 2019-10-25 20:39 | XRay Report ---
XR lumbar spine 2-3V CLINICAL HISTORY: fall eval for injury trauma COMPARISON STUDY: No previous studies for comparison. FINDINGS: Considerable degenerative disc change at the entire lumbar region. Vertebral body stature i s normal. No evidence for compression deformity. Osteopenia. Probable gallstones. IMPRESSION: Severe degenerative disc changes at the entire lumbar region. No acute process. Osteopen ia. ACT 112: Negative or not required by law. The above report was generated using voice recognition software. It may contain grammatical, syntax or spelling errors. Electronically signed by: North Easton M.D. 10/25/2019 8:38 PM
[2019-10-25 20:40] LABS: INR 1.1 (0.9-1.1); Partial Thromboplastin Time 27.3 Seconds (21.0-31.0); Prothrombin Time 11.9 Seconds (9.0-12.0)
[2019-10-25 20:44] LABS: Magnesium 1.4 mg/dl (1.8-2.4); Troponin I < 0.015 ng/ml (0-0.045)
[2019-10-25 20:45] LABS: Albumin Level 3.1 gm/dl (3.4-5.0); BUN Creatinine Ratio 14.3 (10-20); Calcium 9.3 mg/dl (8.5-10.1); Creatinine Clr Calc Pharmacy 30.3 ml/min; Est GFR (African American) 32.5; Potassium 3.8 mmol/L (3.5-5.1)
[2019-10-25 20:48] LABS: Albumin Globulin Ratio 0.9 (0.9-2); Bilirubin,Total 0.3 mg/dl (0.2-1); Globulin 3.4 gm/dl (2.5-4.0); Total Protein 6.5 gm/dl (6.4-8.2)
[2019-10-25 20:54] LABS: Appearance Urine Clear (Clear); Bacteria Urine Automated 4+ (Negative); Bilirubin Urine Negative (Negative); Blood Urine Negative (Negative); Color Urine Yellow; Glucose Urine UA 1+ (Negative); Influenza A virus by PCR Neg for Influ A (Neg); Influenza B virus by PCR Neg for Influ B (Neg); Ketones Urine Negative (Negative); Leukocyte Esterase Urine Trace (Negative); Nitrite Urine Positive (Negative); Protein Urine Trace (Negative); RBC Urine Automated 0-4 /hpf (0-4); Specific Gravity Urine 1.026 (1.000-1.030); Urobilinogen Urine Negative (Negative)
[2019-10-25] MEDS ORDERED: cefTRIAXone SODIUM 2,000 MG/70 ML BAG IV STA (21:22)
--- NOTE | 2019-10-25 23:32 | History & Physical Report ---
Date of Service October 25, 2019 Assessment & Plan (1) Left lower lobe pneumonia: Dana is an 84-year-old female with a past medical history of type 2 diabetes, anxiety and depression, hypothyroidism, arthritis, dementia, asthma, hypertension, CKD 3, and DVT with PE in 2014 on chronic Eliquis therapy who presents with increased confusion and concerns for acute weakness while getting out of bed for 1 day. Increased weakness with fall and confusion 2/2 suspected pneumonia On admission lactate of 2.5, chest x-ray shows left parenchymal infiltrate and slight cardiomegaly CThead with no acute findings, signs of small vessel disease - X-ray pelvis: No acute findings X-ray lumbar: Degenerative joint disease, no acute findings Repeat lactate normalized Continue Rocephin 1 g daily BC pending. UA as below NAN on CKD versus prerenal azotemia Creatinine acutely elevated to 1.65 from baseline of 1.31.57 IV FM as below, BMP daily Hold losartan UTI versus asymptomatic bacteriuria UA infected appearing, but patient without urinary symptoms Rocephin as above will also cover for UTI Follow for culture CBC daily Type II DM Patient on Lantus 28 units every morning and sliding scale Humalog prior to admission Convert to Lantus/SSI during admission, adjust for decreased kidney function - Lantus 10u BID + CF 30, Ratio 1:10 Glucose checks AC at bedtime Bilateral lower leg swelling Patient reports chronic, although bilaterally mildly increased On anticoagulation for DVT as below No history of heart failure, no echo available. Patient denies positional dyspnea BNP added to a.m. labs History of DVT with PE in 2004 Continue Eliquis 2.5 mg p.o. twice daily Hypothyroidism Continue Synthroid 88 mcg daily COPD Continue duo nebs 3 times daily as needed Patient without increased shortness of breath Anxiety/depression Continue escitalopram 10 mg daily Continue trazodone 50 mg nightly as needed Continue buspirone 30 mg twice daily DVT prophylaxis: On Eliquis as above IV FM: NSS 100 cc/h Disposition: Medical surgical (2) Acute UTI: (3) Acute alteration in mental status: (4) Fall: (5) Anticoagulated: (6) Vertigo: (7) Type 2 diabetes mellitus: (8) Anxiety and depression: (9) Arthritis: (10) Dementia: (11) CKD (chronic kidney disease), stage III: (12) History of pulmonary embolism: History of Present Illness Chief Complaint: Increased confusion Primary Care Provider: Eve Weaver DO Dana is an 84-year-old female with a past medical history of type 2 diabetes, anxiety and depression, arthritis, dementia, asthma, hypertension, CKD 3, and DVT with PE in 2015 on chronic Eliquis therapy who presents with increased confusion and concerns for acute weakness while getting out of bed for 1 day. Dana is a resident of [facility]. She seen at the bedside with her daughter. She reportedly was going to get out of bed this morning when she was very weak and slipped, falling to the floor. She does not remember her fall, but reports she did not hit her head. Her daughter reports that she seems to have increased confusion, her dementia is acutely worse, and she was confused trying to leave the facility. [facility] has been under quarantine with no visitors, Dana has not been around any sick contacts and has not had any recent travel. She endorses that she gets an intermittent cough productive for clear mucus the size of her pinky tip, but denies acute chest pain, chest pressure, shortness of breath, syncope, presyncope, fever, chills, nausea, vomiting, diarrhea, constipation. She reports her appetite is good. She denies urinary symptoms including polyuria, dysuria, and increased urgency. She denies belly pain. She has had UTIs and pneumonia in the past, notes that she has several antibiotic allergies but does not remember what happens. Review shows allergies to macrolides, sulfa, Doxy, oxybutynin, codeine, Flonase, salmeterol, troleandomycin Medical history: Reviewed in EMR Medications: Reviewed in EMR and on transfer paperwork. Medications include buspirone 30 mg twice daily, Caltrate twice daily, cetirizine 5 mg daily, Eliquis 2.5 mg twice daily, escitalopram 10 mg daily, folic acid daily, Humalog sliding scale, duo nebs, Lantus 28 units in the morning, Synthroid 88 mcg daily, losartan 25 mg daily, simvastatin 20 mg nightly, trazodone 50 mg nightly as needed Surgical history: Reviewed in EMR, patient a poor historian Allergies: As noted above, reviewed in EMR Social: [facility]. Denies alcohol, tobacco, and recreational drug use CODE STATUS: Full code, discussed with patient and her daughter present Allergies Allergy/AdvReac Type Severity Reaction Status Date / Time doxycycline Allergy Mild Rash Verified 10/25/19 20:45 oxybutynin Allergy Mild Rash Verified 08/10/19 10:16 codeine Allergy Unknown Unknown Verified 10/25/19 20:42 fluticasone Allergy Unknown Unknown Verified 10/25/19 20:42 Macrolide Antibiotics Allergy Unknown Unknown Verified 10/25/19 20:42 salmeterol Allergy Unknown Unknown Verified 10/25/19 20:42 Sulfa (Sulfonamide Allergy Unknown Unknown Verified 10/25/19 20:42 Antibiotics) troleandomycin Allergy Unknown Unknown Verified 10/25/19 20:42 Home Medications Home Medications Medication Instructions Recorded Confirmed Type escitalopram oxalate 10 mg PO QAM 08/04/18 10/25/19 History folic acid 1 mg PO QAM 08/04/18 10/25/19 History latanoprost [Xalatan] 1 drp OPB HS 08/04/18 10/25/19 History levothyroxine 88 mcg PO QAM 08/04/18 10/25/19 History simvastatin 20 mg PO HS 08/04/18 10/25/19 History trazodone 50 mg PO HS 08/04/18 10/25/19 History buspirone 30 mg PO BID 12/12/18 10/25/19 History acetaminophen 500 mg tablet 500 mg PO TID 12/16/18 10/25/19 History calcium 600 mg-D3 800 unit-mag11 1 tab PO BID tab 02/10/19 10/25/19 History 50 tn-ekag-tsttjh-cristofer-s.borat tablet insulin lispro 100 unit/mL 1 sliding scale dose SUBCUT AC ml 02/10/19 10/25/19 History subcutaneous solution Eliquis 2.5 mg PO BID 03/13/19 10/25/19 History insulin glargine 100 unit/mL 28 units SUBCUT QAM ml 03/23/19 10/25/19 History subcutaneous solution Artificial Tears (cmc) 1 drp OPB QID 06/04/19 10/25/19 History ipratropium-albuterol 3 ml INHALATION TID 06/04/19 10/25/19 History thiamine HCl (vitamin B1) 50 mg 50 mg PO QAM 08/03/19 10/25/19 History tablet losartan 25 mg tablet 25 mg PO QAM 08/10/19 10/25/19 History benzonatate [Tessalon Perles] 100 mg PO TID PRN 10/25/19 10/25/19 History cetirizine 5 mg PO DAILY 10/25/19 10/25/19 History diphenhydramine HCl 25 mg PO Q6H PRN 10/25/19 10/25/19 History Past Med/Surg History Medical History Allergic rhinitis Anxiety and depression Arthritis Asthma Cardiomyopathy (Chronic) CKD (chronic kidney disease), stage III Dementia Dyslipidemia Endometrioid adenocarcinoma of uterus (Chronic) History of DVT (deep vein thrombosis) (2014) "LLE 2014" History of pulmonary embolism (2014) "2014" Hypertension Hypothyroidism Hypothyroidism Type 2 diabetes mellitus (Chronic) Urinary incontinence Vertigo Vitamin D deficiency Surgical History H/O cataract extraction History of robot-assisted laparoscopic hysterectomy (Resolved 10/2018) 11/10/18 - with BSO with B/L SLN Biopsy and Right pelvic lymph node dissection and cystoscopy (Dr. Buffy Mayo in [place]) S/P appendectomy as a child S/P foot surgery (2004) S/P tonsillectomy and adenoidectomy Family History Mother , Passed in 80s/90's of old age No problems noted. Father , Passed in 70's of black lung complications ([place]) Lung disease Sister , Passed in 80's of unknown No problems noted. Sister , Passed in 60's of unknown No problems noted. Brother , Passed in 60's of unknown (alcoholic) Hypertension Brother , Passed in late 70's of unknown Lung disease Daughter No problems noted. Son No problems noted. Son No problems noted. Son No problems noted. 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 Other Information That Helps Us Care for You: No Feels Safe at Home: Yes Safety Concerns: Feels Safe At This Time Smoking Status: Never smoker Do You Dip or Chew Tobacco: No ; Second Hand Exposure: No ; Hx Alcohol Use: No Hx Substance Use: No Childhood Exposure to Second-Hand Smoke: No Diet Comment: well balanced diet caffeine: No during the past year weight has: increased > 10 lbs Dental Care, Regularly: No Physical Activity Frequency: Does not Exercise Seatbelt Use: always Sunscreen Use: No Review of Systems Review of Systems: Constitutional: Denies fever, chills, malaise, weight change Eyes: Denies double vision, vision change, eye pain ENT: Denies ear pain, sore throat, sinus pain Cardiovascular: Denies Chest pain, chest pressure, palpitations, extremity swelling Respiratory: Denies shortness of breath, difficulty breathing. Intermittent baseline cough/sputum production as noted in HPI Gastrointestinal: Denies abdominal pain, nausea, vomiting, constipation, diarrhea Genitourinary: Denies pain with urination, urinary urgency, urinary frequency Musculoskeletal: Denies new muscle aches/pain, joint aches/pain. Endorses mild global weakness. Integumentary:Denies rash, lesions, bruising Neurological: Denies headache, numbness, tingling, focal weakness Physical Exam Physical Exam: General: Alert and oriented to name and place. NAD. Cooperative. HEENT: Atraumatic, normocephalic. Peoples equal and reactive to light and accommodation. Phonation normal. No facial asymmetry. Pulm: High-pitched and expiratory wheeze in left midlung field posteriorly. Symmetrical chest rise, no increase work of breathing. No respiratory distress. Cardiac: RRR, -mrg. Radial pulses intact and symmetrical. Abdominal: softly distended, nontender. BS present. Extremities: Moving all extremities equally. Sensation intact in fingertips and toes bilaterally without asymmetry. Radial pulse and PT pulse intact bilaterally and symmetrical. Trace edema of the legs bilaterally. Results & Data Results [facility] Data ([facility]) Vital Signs (Past 12 Hours) Vital Signs Temp Pulse Pulse Resp BP BP Pulse Ox 10/25/19 22:53 94 H 20 150/91 H 93 10/25/19 22:30 78 20 162/76 H 94 10/25/19 21:39 89 22 145/72 H 95 10/25/19 21:00 74 20 168/94 H 93 10/25/19 20:40 78 23 167/82 H 93 10/25/19 19:47 95 10/25/19 19:32 37.6 C H 86 20 172/82 H 94 Supervising Physician Co-Signing Physician Notes Attending addendum: I have physically seen this patient, have supervised the medical residents activities, and agree with the H&P unless as otherwise noted. Assessment and Plan: Left lower lobe/retrocardiac pneumonia/COPD- Ceftriaxone 1 g IV daily. Avoiding levofloxacin due to history of atypical reaction Guaifenesin extended release 600 mg p.o. twice daily. Duonebs every 4 hours while awake and every 2 hours when necessary. Follow sputum Gram stain and culture. UTI- Follow urine culture and sensitivities. Ceftriaxone IV as noted above. Pulmonary embolism/DVT history- Continue chronic Eliquis 2.5 mg p.o. twice daily Remainder of orders and notations as noted. Resident Activity Tracking Resident Involvement: Resident Care Provided Care Provided: Adult Hospital Medicine (1) Left lower lobe pneumonia Pneumonia type: due to unspecified organism Qualified Code(s): J18.9 - Pneumonia, unspecified organism (2) Fall Encounter type: initial encounter Qualified Code(s): W19.XXXA - Unspecified fall, initial encounter
[2019-10-26] MEDS ORDERED: GLUCOSE 10 TABS/TUBE PO PRN (00:57)
[2019-10-26] MEDS ORDERED: CARBOHYDRATES FOR HYPOGLYCEMIA PO PRN (00:57)
[2019-10-26] MEDS ORDERED: ALBUT/IPRATROP 3MG/0.5MG NEB 3 ML VIAL INH PRN (00:57)
[2019-10-26] MEDS ORDERED: GLUCOSE 40% GEL 15 GM TUBE PO PRN (00:57)
[2019-10-26] MEDS ORDERED: DEXTROSE 50% 50 ML SYRINGE IV PRN (00:57)
[2019-10-26] MEDS ORDERED: GLUCAGON FOR INJ 1 MG VIAL SQ PRN (00:57)
[2019-10-26] MEDS: SODIUM CHLORIDE 0.9% 1000ML 1,000 ML IV SCH ×2 (01:30→11:00)
[2019-10-26] MEDS ORDERED: PNEUMOCOCCAL ADMINISTRATION CHARGE ONE (02:17)
[2019-10-26] MEDS ORDERED: INFLUENZA ADMINISTRATION CHARGE ONE (02:17)
[2019-10-26] MEDS ORDERED: PNEUMOCOCCAL POLYSACCHARIDES 25 MCG/0.5 ML VIAL/SYR IM ONE (02:17)
[2019-10-26] MEDS ORDERED: INFLUENZA VACCINE HIGH DOSE 65+ 0.5 ML SYR IM ONE (02:17)
[2019-10-26] MEDS ORDERED: MAGNESIUM OXIDE 400 MG TAB PO ONE (05:09)
[2019-10-26] MEDS: LEVOTHYROXINE SODIUM 88 MCG TABLET PO SCH (06:21)
[2019-10-26 07:19] LABS: Basophils # (auto) 0.02 K/uL (0-0.2); Basophils % (auto) 0.3 %; Eosinophils # (auto) 0.35 K/uL (0-0.5); Eosinophils % (auto) 5.1 %; Hematocrit (blood only) 35.8 % (37-47); Hemoglobin 11.3 g/dL (12.0-16.0); Immature Granulocytes # (auto) 0.03 K/uL (0.00-0.02); Immature Granulocytes % (auto) 0.4 %; Lymphocytes # (auto) 1.14 K/uL (1.2-3.4); Lymphocytes % (auto) 16.6 %; Mean Corpuscular Hgb Conc 31.6 g/dL (32-36); Mean Corpuscular Volume 88.6 fL (80-100); Monocytes # (auto) 0.57 K/uL (0.11-0.59); Monocytes % (auto) 8.3 %; Neutrophils # (auto) 4.75 K/uL (1.4-6.5); Neutrophils % (auto) 69.3 %; Platelet Count 180 K/uL (130-400); RDW Coefficient of Variation 13.8 % (11.5-14.5); Red Blood Count 4.04 M/uL (4.2-5.4); White Blood Count 6.86 K/uL (4.8-10.8)
[2019-10-26 07:48] LABS: BUN Creatinine Ratio 13.7 (10-20); Calcium 8.4 mg/dl (8.5-10.1); Est GFR (African American) 40.3; Est GFR (Non-African American) 34.8; Potassium 3.5 mmol/L (3.5-5.1)
[2019-10-26] MEDS: BusPIRone 15 MG TAB PO SCH ×2 (08:30→20:14)
[2019-10-26] MEDS: MAGNESIUM OXIDE 400 MG TAB PO SCH ×2 (08:30→20:15)
[2019-10-26] MEDS: CETIRIZINE HCL 10 MG TABLET PO SCH (08:30)
[2019-10-26] MEDS: CALCIUM 600MG + VIT D 400 IU TAB PO SCH ×2 (08:30→20:15)
[2019-10-26] MEDS: ESCITALOPRAM OXALATE 10 MG TAB PO SCH (08:31)
[2019-10-26] MEDS: FOLIC ACID 1 MG TAB PO SCH (08:31)
[2019-10-26] MEDS: APIXABAN 2.5 MG TAB PO SCH ×2 (08:32→20:16)
[2019-10-26] MEDS: INSULIN ASPART 100 UNITS/ML 3 ML PEN SC SCH ×4 (08:33→20:13)
[2019-10-26] MEDS: INSULIN GLARGINE SOLOSTAR 100 UNITS/ML 3 ML PEN SC SCH ×2 (08:33→20:13)
[2019-10-26] MEDS ORDERED: MICONAZOLE NITRATE POWDER 43 GM EXT PRN (12:57)
--- NOTE | 2019-10-26 13:10 | Hospitalist Progress Note ---
Date of Service October 26, 2019 Assessment & Plan (1) Acute alteration in mental status: Per daughter, was just lethargic and had worsening responsiveness. Presently appears near baseline with pleasant conversation, AAOx1 (unclear on year and where she was). - Continue abx for possible pneumonia vs. UTI - Asked daughter to call in and see how her mother's mentation was (2) Left lower lobe pneumonia: CXR on 10/24 showed small parenchymal infiltrate left base. - Continue ceftriaxone for CAP - No present symptoms (3) Acute UTI: Urine culture growing Gram(-) bacilli. Unclear if this is an active UTI v s. asymptomatic bacteruria. - Continue ceftriaxone as above - Follow culture (4) Type 2 diabetes mellitus: A1c was 8.7% in 05/2019. - Continue Lantus 10 units SQ BID - Sliding scale insulin - Will consult glycemic pharmacist if sugars going too high - Repeat A1c (5) Hypertension: BP presently 140/80 which is fine for age and comorbidities. - Continue to monitor; not on any home meds (6) CKD (chronic kidney disease), stage III: Baseline Cr. 1.4, eGFR ~35. - At baseline presently. - Avoid nephrotoxic meds as able (7) Anxiety and depression: Per prior neurology note, she has a history of depression. - Continue home buspirone, escitalopram, & trazodone (8) Dementia: Possibly Alzheimer's-type dementia, though neuropsychiatric testing was ordered in July and unsure if it was completed given coronavirus. - Had adverse reaction to steroids during the prior admission. Avoid if possible. - Monitor (9) Hypothyroidism: TSH was 1.7 in 05/2019. - Continue home Synthroid 88 mcg - Repeat TSH (10) History of pulmonary embolism: In 2014 with DVT as well. - Continue apixaban Admission and Anticipated Discharge Date Admission Date: October 25, 2019 Subjective Doing well. Overall denies any shortness of breath. No cough. Reports no fevers/chills, chest pain, shortness of breath, abdominal pain, nausea, or vomiting. Physical Exam Constitutional: WD/WN, vitals as above Eyes: EOM intact bilaterally; no conjunctival abnormality ENMT: external ear and nose normal, oropharynx normal Neck: trachea midline, no thyromegaly normal visual inspection Respiratory: normal respiratory effort, lungs clear to auscultation no respiratory distress Cardiovascular: RRR, no murmur, no edema Gastrointestinal (Abdomen): Inspection/Auscultation: abdomen normal to inspection; abdomen not distended Musculoskeletal: no cyanosis or clubbing, extremities motor strength 5/5 Skin: no rashes, warm and dry Neurologic: moves all extremities and awake Psychiatric: Orientation: alert, oriented to person and cooperative; + not oriented to place Results & Data Results & Data ([facility]) Vital Signs (Past 12 Hours) Vital Signs Temp Pulse Resp BP Pulse Ox 10/26/19 07:19 36.7 C 91 H 18 142/79 H 94 10/26/19 03:56 86 10/26/19 03:54 36.6 C 120 H 18 136/82 95 10/26/19 01:00 37.0 C 97 H 18 167/80 H 96 PG Care Time/CCT Total # of Minutes Spent Total Time Spent with Patient: Total time spent is greater than 50% in coordination of care (as documented) at patient's floor/unit and/or counseling patient: Coding Level of Care Code 95901 Subseq Hosp Care Lvl 3 Diagnoses Acute alteration in mental status R41.82 Left lower lobe pneumonia J18.9 Pneumonia type: due to unspecified organism Acute UTI N39.0 Type 2 diabetes mellitus E11.9 Hypertension I10 CKD (chronic kidney disease), stage III N18.3 Anxiety and depression F41.9; F32.9 Dementia F03.90 Hypothyroidism E03.9 History of pulmonary embolism Z86.711 (1) Left lower lobe pneumonia Pneumonia type: due to unspecified organism Qualified Code(s): J18.9 - Pneumonia, unspecified organism
--- NOTE | 2019-10-26 13:22 | Electrocardiogram Report ---
Test Reason : Blood Pressure : / mmHG Vent. Rate : 091 BPM Atrial Rate : 091 BPM P-R Int : 178 ms QRS Dur : 090 ms QT Int : 376 ms P-R-T Axes : 043 -52 060 degrees QTc Int : 462 ms Normal sinus rhythm with sinus arrhythmia Left axis deviation Poor R wave progression, consider anterior DE vs. lead placement vs. LVH Abnormal ECG When compared with ECG of 03-JUN-2019 22:01, No significant change was found Confirmed by Bang Chahal ([id number]) on 10/26/2019 1:21:48 PM Referred By: [facility] Confirmed By:Bang Chahal
[2019-10-26] MEDS: TRAZODONE HCL 50 MG TAB PO SCH (20:14)
[2019-10-26] MEDS: LATANOPROST 0.005% OP SOLN 2.5 ML BTL OPB SCH (20:15)
[2019-10-26] MEDS: SIMVASTATIN 20 MG TAB PO SCH (20:16)
[2019-10-26] MEDS: cefTRIAXone SODIUM 2,000 MG in DEXTROSE 5% 50 ML IV SCH (20:20)
--- NOTE | 2019-10-27 00:06 | Billing Data ---
Date of Service October 27, 2019 Coding Level of Care Code 76827 Initial Inpt Care Lvl 3
[2019-10-27] MEDS: LEVOTHYROXINE SODIUM 88 MCG TABLET PO SCH (05:10)
[2019-10-27 06:31] LABS: Hematocrit (blood only) 35.3 % (37-47); Hemoglobin 11.1 g/dL (12.0-16.0); Mean Corpuscular Hgb Conc 31.4 g/dL (32-36); Mean Corpuscular Volume 88.9 fL (80-100); Platelet Count 201 K/uL (130-400); RDW Standard Deviation 45.8 fL (36.4-46.3); Red Blood Count 3.97 M/uL (4.2-5.4); White Blood Count 6.31 K/uL (4.8-10.8)
[2019-10-27 07:00] LABS: BUN Creatinine Ratio 15.7 (10-20); Calcium 8.4 mg/dl (8.5-10.1); Creatinine Clr Calc Pharmacy 35.3 ml/min; Est GFR (African American) 40.7; Est GFR (Non-African American) 35.1; Potassium 3.8 mmol/L (3.5-5.1)
[2019-10-27 07:10] LABS: Thyroid Stimulating Hormone 3.92 uIu/ml (0.300-4.500)
[2019-10-27] MEDS: INSULIN ASPART 100 UNITS/ML 3 ML PEN SC SCH ×4 (08:36→21:36)
[2019-10-27] MEDS: INSULIN GLARGINE SOLOSTAR 100 UNITS/ML 3 ML PEN SC SCH ×2 (08:36→21:35)
[2019-10-27] MEDS: APIXABAN 2.5 MG TAB PO SCH ×2 (08:37→21:34)
[2019-10-27] MEDS: CALCIUM 600MG + VIT D 400 IU TAB PO SCH ×2 (08:37→21:33)
[2019-10-27] MEDS: BusPIRone 15 MG TAB PO SCH ×2 (08:37→21:33)
[2019-10-27] MEDS: FOLIC ACID 1 MG TAB PO SCH (08:38)
[2019-10-27] MEDS: ESCITALOPRAM OXALATE 10 MG TAB PO SCH (08:38)
[2019-10-27] MEDS: CETIRIZINE HCL 10 MG TABLET PO SCH (08:39)
[2019-10-27] MEDS: MAGNESIUM OXIDE 400 MG TAB PO SCH ×2 (08:39→21:35)
[2019-10-27 08:46] LABS: Estimated Average Glucose 206 mg/dl; Hemoglobin A1C 8.8 % (4.5-5.6)
--- NOTE | 2019-10-27 14:53 | Hospitalist Progress Note ---
Date of Service October 27, 2019 Assessment & Plan (1) Acute alteration in mental status: Per daughter, was just lethargic and had worsening responsiveness. Presently appears near baseline with pleasant conversation, AAOx1 (unclear on year and where she was). - Continue abx for possible pneumonia - Asked daughter to call in and see how her mother's mentation was -> Daughter feels mother is clearing, but not quite at baseline. (2) Left lower lobe pneumonia: CXR on 10/24 showed small parenchymal infiltrate left base. - Continue ceftriaxone for CAP - Mild cough, but otherwise no shortness of breath today. (3) Asymptomatic bacteriuria: Urine culture growing ESBL E. coli. Given her improvement with no coverage of this bug, likely asymptomatic bacteruria. - No further needs (4) Type 2 diabetes mellitus: A1c was 8.7% in 05/2019 & 8.8% this admission. - Continue Lantus 10 units SQ BID - Sliding scale insulin - Sugars acceptable today. Highest has been 230. (5) Hypertension: BP presently 120/60 which is great for age and comorbidities. - Continue to monitor; not on any home meds (6) CKD (chronic kidney disease), stage III: Baseline Cr. 1.4, eGFR ~35. - At baseline presently. - Avoid nephrotoxic meds as able (7) Anxiety and depression: Per prior neurology note, she has a history of depression. - Continue home buspirone, escitalopram, & trazodone (8) Dementia: Possibly Alzheimer's-type dementia, though neuropsychiatric testing was ordered in July and unsure if it was completed given coronavirus. - Had adverse reaction to steroids during the prior admission. Avoid if possible. - Monitor (9) Hypothyroidism: TSH was 3.9 this admission. - Continue home Synthroid 88 mcg (10) History of pulmonary embolism: In 2014 with DVT as well. - Continue apixaban Admission and Anticipated Discharge Date Admission Date: October 25, 2019 Subjective Pleasant, alert. Reports memory issues. Reports no fevers/chills, chest pain, shortness of breath, abdominal pain, nausea, or vomiting. Physical Exam Constitutional: WD/WN, vitals as above Eyes: EOM intact bilaterally; no conjunctival abnormality ENMT: external ear and nose normal, oropharynx normal Neck: trachea midline, no thyromegaly normal visual inspection Respiratory: normal respiratory effort, lungs clear to auscultation no respiratory distress Cardiovascular: RRR, no murmur, no edema Gastrointestinal (Abdomen): Inspection/Auscultation: abdomen normal to inspection; abdomen not distended Musculoskeletal: no cyanosis or clubbing, extremities motor strength 5/5 Skin: no rashes, warm and dry Neurologic: moves all extremities and awake Psychiatric: Orientation: alert, oriented to person and cooperative; + not oriented to place Results & Data Results [facility] ([facility]) Vital Signs (Past 12 Hours) Vital Signs Temp Pulse Resp BP Pulse Ox 10/27/19 06:46 36.7 C 87 18 121/60 94 PG Care Time/CCT Total # of Minutes Spent Total Time Spent with Patient: Total time spent is greater than 50% in coordination of care (as documented) at patient's floor/unit and/or counseling patient: Coding Level of Care Code 49799 Subseq Hosp Care Lvl 3 Diagnoses Acute alteration in mental status R41.82 Left lower lobe pneumonia J18.9 Pneumonia type: due to unspecified organism Asymptomatic bacteriuria R82.71 Type 2 diabetes mellitus E11.9 Hypertension I10 CKD (chronic kidney disease), stage III N18.3 Anxiety and depression F41.9; F32.9 Dementia F03.90 Hypothyroidism E03.9 History of pulmonary embolism Z86.711 (1) Left lower lobe pneumonia Pneumonia type: due to unspecified organism Qualified Code(s): J18.9 - Pneumonia, unspecified organism
[2019-10-27] MEDS: cefTRIAXone SODIUM 2,000 MG in DEXTROSE 5% 50 ML IV SCH (21:32)
[2019-10-27] MEDS: TRAZODONE HCL 50 MG TAB PO SCH (21:34)
[2019-10-27] MEDS: SIMVASTATIN 20 MG TAB PO SCH (21:37)
[2019-10-27] MEDS: LATANOPROST 0.005% OP SOLN 2.5 ML BTL OPB SCH (21:37)
[2019-10-28 05:51] LABS: Hematocrit (blood only) 35.4 % (37-47); Hemoglobin 11.1 g/dL (12.0-16.0); Mean Corpuscular Hemoglobin 28.2 pg (25-34); Mean Corpuscular Hgb Conc 31.4 g/dL (32-36); Mean Corpuscular Volume 89.8 fL (80-100); Mean Platelet Volume 9.9 fL (7.4-10.4); Platelet Count 196 K/uL (130-400); RDW Coefficient of Variation 13.8 % (11.5-14.5); RDW Standard Deviation 45.6 fL (36.4-46.3); Red Blood Count 3.94 M/uL (4.2-5.4); White Blood Count 6.53 K/uL (4.8-10.8)
[2019-10-28] MEDS: LEVOTHYROXINE SODIUM 88 MCG TABLET PO SCH (05:57)
[2019-10-28 06:20] LABS: BUN Creatinine Ratio 14.9 (10-20); Calcium 8.7 mg/dl (8.5-10.1); Creatinine Clr Calc Pharmacy 30.8 ml/min; Est GFR (African American) 34.5; Est GFR (Non-African American) 29.8; Magnesium 1.7 mg/dl (1.8-2.4); Potassium 3.9 mmol/L (3.5-5.1)
[2019-10-28] MEDS: ESCITALOPRAM OXALATE 10 MG TAB PO SCH (07:38)
[2019-10-28] MEDS: CETIRIZINE HCL 10 MG TABLET PO SCH (07:38)
[2019-10-28] MEDS: FOLIC ACID 1 MG TAB PO SCH (07:38)
[2019-10-28] MEDS: CALCIUM 600MG + VIT D 400 IU TAB PO SCH ×2 (07:39→22:28)
[2019-10-28] MEDS: MAGNESIUM OXIDE 400 MG TAB PO SCH ×2 (07:39→22:28)
[2019-10-28] MEDS: BusPIRone 15 MG TAB PO SCH ×2 (07:40→22:25)
[2019-10-28] MEDS: APIXABAN 2.5 MG TAB PO SCH ×2 (07:40→22:21)
[2019-10-28] MEDS: INSULIN ASPART 100 UNITS/ML 3 ML PEN SC SCH ×4 (08:30→21:35)
[2019-10-28] MEDS: INSULIN GLARGINE SOLOSTAR 100 UNITS/ML 3 ML PEN SC SCH ×2 (08:30→22:37)
--- NOTE | 2019-10-28 12:24 | XRay Report ---
XR chest 2V PA/lateral HISTORY: 84 years-old Female Pneumonia acute shortness of breath with pneumonia COMPARISON: Chest radiograph 10/25/2019 TECHNIQUE: PA and lateral views of the chest FINDINGS: Cardiac silhouette is enlarged, unchanged. Calcific plaque of the thoracic aorta arch. Mild pulmonary vascular congestion. No overt pulmonary edema. There is suggestion of a trace left pleural effusion. No pneumothorax. Mildly progressed right infrahilar and medial right lung base opacities. Additional ill-defined opacities are noted within the right midlung and left lung base. Degenerative changes of the shoulders and spine. IMPRESSION: 1. Mildly worsened opacities of the right infrahilar distribution and medial right lung base with add itional ill-defined densities of the right midlung and left lung base. Findings are suspicious for an infectious or inflammatory pneumonitis. 2. Cardiomegaly without overt pulmonary edema. 3. Probable trace left pleural effusion. ACT 112: Negative or not required by law. The above report was generated using voice recognition software. It may contain grammatical, syntax o r spelling errors. Electronically signed by: Edilberto Youngblood M.D. 10/28/2019 12:22 PM
[2019-10-28] MEDS ORDERED: AZITHROMYCIN 250 MG TAB PO STA (13:32)
[2019-10-28 15:02] LABS: Adenovirus PCR Not Detected (NotDetected); Bordetella parapertussis PCR Not Detected (NotDetected); Bordetella pertussis PCR Not Detected (NotDetected); Chlamydia pneumoniae PCR Not Detected (NotDetected); Coronavirus 229E PCR Not Detected (NotDetected); Coronavirus HKU1 PCR Not Detected (NotDetected); Coronavirus NL63 PCR Not Detected (NotDetected); Coronavirus OC43PCR Not Detected (NotDetected); Human Metapneumovirus PCR Not Detected (NotDetected); Influenza A PCR Not Detected (NotDetected); Influenza B PCR Not Detected (NotDetected); Mycoplasma pneumoniae PCR Not Detected (NotDetected); Parainfluenza Virus 1 PCR Not Detected (NotDetected); Parainfluenza Virus 2 PCR Not Detected (NotDetected); Parainfluenza Virus 3 PCR Not Detected (NotDetected); Parainfluenza Virus 4 PCR Not Detected (NotDetected); Respiratory Syncytial VirusPCR Not Detected (NotDetected); Rhinovirus/Enterovirus PCR Not Detected (NotDetected)
--- NOTE | 2019-10-28 16:02 | Hospitalist Progress Note ---
Date of Service October 28, 2019 Assessment & Plan (1) Left lower lobe pneumonia: CXR on 10/24 showed small parenchymal infiltrate left base. - Continue ceftriaxone for CAP - Worse CXR today. Will add azithromycin after confirming with daughter that she is not really allergic. BioFire negative. MRSA swab negative. Covid testing sent. - Would consider broadening to Unasyn for more anaerobic coverage if she decompensates. (2) Acute alteration in mental status: Per daughter, was just lethargic and had worsening responsiveness. Presently appears near baseline with pleasant conversation, AAOx1 (unclear on year and where she was). - Continue abx for possible pneumonia (3) Asymptomatic bacteriuria: Urine culture growing ESBL E. coli. Given her improvement with no coverage of this bug, likely asymptomatic bacteruria. - No further needs (4) Type 2 diabetes mellitus: A1c was 8.7% in 05/2019 & 8.8% this admission. - Continue Lantus 10 units SQ BID - Sliding scale insulin - Sugars a bit high today; highest has been 290. Tighten coverage ratio. (5) Hypertension: BP presently 115/80 which is great for age and comorbidities. - Continue to monitor; not on any home meds (6) CKD (chronic kidney disease), stage III: Baseline Cr. 1.4, eGFR ~35. - At baseline presently. - Avoid nephrotoxic meds as able (7) Anxiety and depression: Per prior neurology note, she has a history of depression. - Continue home buspirone, escitalopram, & trazodone (8) Dementia: Possibly Alzheimer's-type dementia, though neuropsychiatric testing was ordered in July and unsure if it was completed given coronavirus. - Had adverse reaction to steroids during the prior admission. Avoid if possible. - Monitor (9) Hypothyroidism: TSH was 3.9 this admission. - Continue home Synthroid 88 mcg (10) History of pulmonary embolism: In 2014 with DVT as well. - Continue apixaban Admission and Anticipated Discharge Date Admission Date: October 25, 2019 Subjective Stable today. Somewhat more cough. Reports no fevers/chills, chest pain, shortness of breath, abdominal pain, nausea, or vomiting. Physical Exam Constitutional: WD/WN, vitals as above Eyes: EOM intact bilaterally; no conjunctival abnormality ENMT: external ear and nose normal, oropharynx normal Neck: trachea midline, no thyromegaly normal visual inspection Respiratory: normal respiratory effort, lungs clear to auscultation no respiratory distress Cardiovascular: RRR, no murmur, no edema Gastrointestinal (Abdomen): Inspection/Auscultation: abdomen normal to inspection; abdomen not distended Musculoskeletal: no cyanosis or clubbing, extremities motor strength 5/5 Skin: no rashes, warm and dry Neurologic: moves all extremities and awake Psychiatric: Orientation: alert, oriented to person and cooperative; + not oriented to place Results & Data Results & Data ([facility]) Vital Signs (Past 12 Hours) Vital Signs Temp Pulse Resp BP BP Pulse Ox 10/28/19 14:20 36.8 C 83 18 114/78 96 10/28/19 07:10 37.1 C 98 H 18 142/84 H 91 PG Care Time/CCT Total # of Minutes Spent Total Time Spent with Patient: Total time spent is greater than 50% in coordination of care (as documented) at patient's floor/unit and/or counseling patient: Coding Level of Care Code 09197 Subseq Hosp Care Lvl 3 Diagnoses Left lower lobe pneumonia J18.9 Pneumonia type: due to unspecified organism Acute alteration in mental status R41.82 Asymptomatic bacteriuria R82.71 Type 2 diabetes mellitus E11.9 Hypertension I10 CKD (chronic kidney disease), stage III N18.3 Anxiety and depression F41.9; F32.9 Dementia F03.90 Hypothyroidism E03.9 History of pulmonary embolism Z86.711 (1) Left lower lobe pneumonia Pneumonia type: due to unspecified organism Qualified Code(s): J18.9 - Pneumonia, unspecified organism
[2019-10-28] MEDS ORDERED: LORazepam 1 MG/2 ML VIAL IV STA (19:43)
[2019-10-28] MEDS ORDERED: LORazepam 2 MG/4 ML VIAL ONE (19:48)
[2019-10-28] MEDS: cefTRIAXone SODIUM 2,000 MG in DEXTROSE 5% 50 ML IV SCH (21:48)
[2019-10-28] MEDS: LATANOPROST 0.005% OP SOLN 2.5 ML BTL OPB SCH (22:15)
[2019-10-28] MEDS: TRAZODONE HCL 50 MG TAB PO SCH (22:22)
[2019-10-28] MEDS: SIMVASTATIN 20 MG TAB PO SCH (22:28)
[2019-10-29] MEDS: MAGNESIUM OXIDE 400 MG TAB PO SCH ×2 (07:50→19:08)
[2019-10-29] MEDS: CETIRIZINE HCL 10 MG TABLET PO SCH (07:51)
[2019-10-29] MEDS: CALCIUM 600MG + VIT D 400 IU TAB PO SCH ×2 (07:51→19:05)
[2019-10-29] MEDS: APIXABAN 2.5 MG TAB PO SCH ×2 (07:51→19:07)
--- NOTE | 2019-10-29 07:51 | Electrocardiogram Report ---
Test Reason : Blood Pressure : / mmHG Vent. Rate : 072 BPM Atrial Rate : 072 BPM P-R Int : 184 ms QRS Dur : 084 ms QT Int : 402 ms P-R-T Axes : 052 -58 069 degrees QTc Int : 440 ms Normal sinus rhythm with sinus arrhythmia Left axis deviation Abnormal ECG When compared with ECG of 25-OCT-2019 19:35, No significant change was found Confirmed by Demetrio Motley ([id number]) on 10/29/2019 7:50:58 AM Referred By: Shiv Sarabia Confirmed By:Demetrio Motley
[2019-10-29] MEDS: BusPIRone 15 MG TAB PO SCH ×2 (07:53→19:05)
[2019-10-29] MEDS: LEVOTHYROXINE SODIUM 88 MCG TABLET PO SCH (07:53)
[2019-10-29] MEDS: ESCITALOPRAM OXALATE 10 MG TAB PO SCH (07:53)
[2019-10-29] MEDS: FOLIC ACID 1 MG TAB PO SCH (07:54)
[2019-10-29 08:05] LABS: BUN Creatinine Ratio 14.3 (10-20); Calcium 8.6 mg/dl (8.5-10.1); Creatinine Clr Calc Pharmacy 32.6 ml/min; Est GFR (African American) 36.7; Est GFR (Non-African American) 31.7; Magnesium 1.8 mg/dl (1.8-2.4); Potassium 4.3 mmol/L (3.5-5.1)
[2019-10-29] MEDS: INSULIN ASPART 100 UNITS/ML 3 ML PEN SC SCH ×3 (08:24→17:49)
[2019-10-29] MEDS: INSULIN GLARGINE SOLOSTAR 100 UNITS/ML 3 ML PEN SC SCH (08:25)
[2019-10-29] MEDS: AZITHROMYCIN 500 MG in DEXTROSE 5% 250 ML IV SCH (13:43)
--- NOTE | 2019-10-29 14:32 | Hospitalist Progress Note ---
Date of Service October 29, 2019 Assessment & Plan (1) Left lower lobe pneumonia: CXR on 10/24 showed small parenchymal infiltrate left base. - Continue ceftriaxone for CAP - Worse CXR on 10/27. Added azithromycin after confirming with daughter that she is not really allergic. BioFire negative. MRSA swab negative. Covid testing sent. - Given her worsening status, will broaden to Unasyn to better cover anaerobic bacteria. Unsure of cause of decline, but will get VBG, BNP, blood cultures, and lactate. (2) Acute alteration in mental status: Per daughter, was just lethargic and had worsening responsiveness. Presently appears near baseline with pleasant conversation, AAOx1 (unclear on year and where she was). - Continue abx for possible pneumonia (3) Asymptomatic bacteriuria: Urine culture growing ESBL E. coli. Given her improvement with no coverage of this bug, likely asymptomatic bacteruria. - No further needs (4) Type 2 diabetes mellitus: A1c was 8.7% in 05/2019 & 8.8% this admission. - Continue Lantus 10 units SQ BID - Sliding scale insulin - Sugars better today with highest of 240. (5) Hypertension: BP presently 115/80 which is great for age and comorbidities. - Continue to monitor; not on any home meds (6) CKD (chronic kidney disease), stage III: Baseline Cr. 1.4, eGFR ~35. - At baseline presently. - Avoid nephrotoxic meds as able (7) Anxiety and depression: Per prior neurology note, she has a history of depression. - Continue home buspirone & escitalopram - Will hold trazodone for now given her fatigue. (8) Dementia: Possibly Alzheimer's-type dementia, though neuropsychiatric testing was ordered in July and unsure if it was completed given coronavirus. - Had adverse reaction to steroids during the prior admission. Avoid if possible. - Monitor (9) Hypothyroidism: TSH was 3.9 this admission. - Continue home Synthroid 88 mcg (10) History of pulmonary embolism: In 2014 with DVT as well. - Continue apixaban Admission and Anticipated Discharge Date Admission Date: October 25, 2019 Subjective More sleepy today. She does wake up to answer a few questions, but keeps her eyes closed. Reports no fevers/chills, chest pain, shortness of breath, abdominal pain, nausea, or vomiting. Physical Exam Constitutional: WD/WN, vitals as above Eyes: EOM intact bilaterally; no conjunctival abnormality ENMT: external ear and nose normal, oropharynx normal Neck: trachea midline, no thyromegaly normal visual inspection Respiratory: normal respiratory effort, lungs clear to auscultation no respiratory distress Cardiovascular: RRR, no murmur, no edema Gastrointestinal (Abdomen): Inspection/Auscultation: abdomen normal to inspection; abdomen not distended Musculoskeletal: no cyanosis or clubbing, extremities motor strength 5/5 Skin: no rashes, warm and dry Neurologic: moves all extremities and + confused Psychiatric: Orientation: oriented to person and cooperative; + not alert and + not oriented to place Results & Data Results & Data ([facility]) Vital Signs (Past 12 Hours) Vital Signs Temp Pulse Resp BP Pulse Ox 10/29/19 08:02 36.6 C 100 H 20 166/76 H 96 PG Care Time/CCT Total # of Minutes Spent Total Time Spent with Patient: Total time spent is greater than 50% in coordination of care (as documented) at patient's floor/unit and/or counseling patient: Coding Level of Care Code 57076 Subseq Hosp Care Lvl 3 Diagnoses Left lower lobe pneumonia J18.9 Pneumonia type: due to unspecified organism Acute alteration in mental status R41.82 Asymptomatic bacteriuria R82.71 Type 2 diabetes mellitus E11.9 Hypertension I10 CKD (chronic kidney disease), stage III N18.3 Anxiety and depression F41.9; F32.9 Dementia F03.90 Hypothyroidism E03.9 History of pulmonary embolism Z86.711 (1) Left lower lobe pneumonia Pneumonia type: due to unspecified organism Qualified Code(s): J18.9 - Pneumonia, unspecified organism
[2019-10-29 15:09] LABS: Base Excess VBG 8.7 mEq/L; Oxygen Saturation VBG 72.1 %; pH VBG 7.42 (7.36-7.41)
--- NOTE | 2019-10-29 16:13 | XRay Report ---
XR chest 1V portable CLINICAL HISTORY: Pneumonia. Difficulty breathing. COMPARISON STUDY: October 28, 2019 FINDINGS: The heart is mildly enlarged. There is stable hilar prominence likely vascular. There is no lobar consolidation. There is basilar interstitial thickening, atelectatic versus pneumonia.[There a re no significant pleural effusions. IMPRESSION: Persistent basilar opacities, atelectatic versus infectious/inflammatory. ACT 112: Negative or not required by law. Electronically signed by: Deuce Hanson M.D. 10/29/2019 4:12 PM
[2019-10-29] MEDS: AMPICILLIN/SULBACTAM SOD 3,000 MG in 0.9 % SODIUM CHLORIDE 100 ML IV SCH (16:39)
[2019-10-29] MEDS: SIMVASTATIN 20 MG TAB PO SCH (19:08)
[2019-10-29] MEDS ORDERED: LORazepam 2 MG/4 ML VIAL IV PRN (20:47)
[2019-10-29] MEDS: HALOPERIDOL LACTATE 5 MG/ML 1 ML VIAL IM PRN (20:50)
[2019-10-29] MEDS ORDERED: LORazepam 2 MG/4 ML VIAL ONE (20:52)
[2019-10-29] MEDS: LATANOPROST 0.005% OP SOLN 2.5 ML BTL OPB SCH (21:06)
[2019-10-30] MEDS: TRAZODONE HCL 50 MG TAB PO SCH ×2 (00:20→21:54)
[2019-10-30] MEDS: INSULIN ASPART 100 UNITS/ML 3 ML PEN SC SCH ×5 (00:21→22:01)
[2019-10-30] MEDS: INSULIN GLARGINE SOLOSTAR 100 UNITS/ML 3 ML PEN SC SCH ×3 (00:21→20:36)
[2019-10-30] MEDS: AMPICILLIN/SULBACTAM SOD 3,000 MG in 0.9 % SODIUM CHLORIDE 100 ML IV SCH ×3 (00:22→08:58)
[2019-10-30] MEDS: BusPIRone 15 MG TAB PO SCH ×3 (00:24→21:54)
[2019-10-30] MEDS: APIXABAN 2.5 MG TAB PO SCH ×3 (00:27→21:54)
[2019-10-30] MEDS: SIMVASTATIN 20 MG TAB PO SCH ×2 (00:27→21:55)
[2019-10-30] MEDS: CALCIUM 600MG + VIT D 400 IU TAB PO SCH ×3 (00:27→21:55)
[2019-10-30] MEDS: MAGNESIUM OXIDE 400 MG TAB PO SCH ×3 (00:27→21:56)
[2019-10-30] MEDS: ESCITALOPRAM OXALATE 10 MG TAB PO SCH (08:54)
[2019-10-30] MEDS: CETIRIZINE HCL 10 MG TABLET PO SCH (08:54)
[2019-10-30] MEDS: LEVOTHYROXINE SODIUM 88 MCG TABLET PO SCH (08:54)
[2019-10-30] MEDS: FOLIC ACID 1 MG TAB PO SCH (08:56)
[2019-10-30] MEDS: AZITHROMYCIN 500 MG in DEXTROSE 5% 250 ML IV SCH (09:47)
--- NOTE | 2019-10-30 13:22 | Hospitalist Progress Note ---
Date of Service October 30, 2019 Assessment & Plan (1) Left lower lobe pneumonia: CXR on 10/24 showed small parenchymal infiltrate left base. - Worse CXR on 10/27. Added azithromycin after confirming with daughter that she is not really allergic. BioFire negative. MRSA swab negative. Covid testing sent. - On 10/28, broadened to Unasyn to better cover anaerobic bacteria. - Today, she is clinically stable. Breathing stable, O2 sat is good on room air. HR faster, but is also agitated much of the day. Mental status has declined with more confusion and agitation. Has required Haldol the last 2 nights. (2) Acute alteration in mental status: Per daughter, was just lethargic and had worsening responsiveness. Presently appears near baseline with pleasant conversation, AAOx1 (unclear on year and where she was). - Continue abx as above for possible pneumonia (3) Asymptomatic bacteriuria: Urine culture growing ESBL E. coli. Given her improvement with no coverage of this bug, I initially thought it was asymptomatic bacteruria. - However, she has declined in the last 2 days, so will switch abx to Zosyn to cover aspiration pneumonia as well as the urine bacteria. (4) Type 2 diabetes mellitus: A1c was 8.7% in 05/2019 & 8.8% this admission. - Continue Lantus 10 units SQ BID - Sliding scale insulin - Sugars better today with highest of 190. (5) Hypertension: BP presently 135/80 which is great for age and comorbidities. - Continue to monitor; not on any home meds (6) CKD (chronic kidney disease), stage III: Baseline Cr. 1.4, eGFR ~35. - At baseline presently. - Avoid nephrotoxic meds as able -> Refused labs this morning. (7) Anxiety and depression: Per prior neurology note, she has a history of depression. - Continue home buspirone, trazodone, & escitalopram (8) Dementia: Possibly Alzheimer's-type dementia, though neuropsychiatric testing was ordered in July and unsure if it was completed given coronavirus. - Had adverse reaction to steroids during the prior admission. Avoid if possible. - Monitor -> Appears she is having a very similar course to prior admission where she became fairly agitated and even aggressive during middle portion of her admission. (9) Hypothyroidism: TSH was 3.9 this admission. - Continue home Synthroid 88 mcg (10) History of pulmonary embolism: In 2015 with DVT as well. - Continue apixaban Admission and Anticipated Discharge Date Admission Date: October 25, 2019 Subjective Denies any major symptoms, but also not really willing to participate. Reports no fevers/chills, chest pain, shortness of breath, abdominal pain, nausea, or vomiting. Physical Exam Constitutional: WD/WN, vitals as above Eyes: EOM intact bilaterally; no conjunctival abnormality ENMT: external ear and nose normal, oropharynx normal Neck: trachea midline, no thyromegaly normal visual inspection Respiratory: normal respiratory effort, lungs clear to auscultation no respiratory distress Cardiovascular: RRR, no murmur, no edema Gastrointestinal (Abdomen): Inspection/Auscultation: abdomen normal to inspection; abdomen not distended Musculoskeletal: no cyanosis or clubbing, extremities motor strength 5/5 Skin: no rashes, warm and dry Neurologic: moves all extremities and + confused Psychiatric: Orientation: alert and oriented to person; + not oriented to place and + uncooperative Results & Data Results & Data ([facility]) Vital Signs (Past 12 Hours) Vital Signs Temp Pulse Resp BP Pulse Ox 10/30/19 08:16 36.6 C 115 H 20 133/84 94 PG Care Time/CCT Total # of Minutes Spent Total Time Spent with Patient: Total time spent is greater than 50% in coordination of care (as documented) at patient's floor/unit and/or counseling patient: Coding Level of Care Code 26617 Subseq Hosp Care Lvl 3 Diagnoses Left lower lobe pneumonia J18.9 Pneumonia type: due to unspecified organism Acute alteration in mental status R41.82 Asymptomatic bacteriuria R82.71 Type 2 diabetes mellitus E11.9 Hypertension I10 CKD (chronic kidney disease), stage III N18.3 Anxiety and depression F41.9; F32.9 Dementia F03.90 Hypothyroidism E03.9 History of pulmonary embolism Z86.711 (1) Left lower lobe pneumonia Pneumonia type: due to unspecified organism Qualified Code(s): J18.9 - Pneumonia, unspecified organism
[2019-10-30] MEDS ORDERED: PIPERACILL/TAZOBAC CONSULT ACTIVE PRN (13:31)
[2019-10-30] MEDS ORDERED: PIPERACILLIN/TAZOBACTAM 4.5 GM in DEXTROSE 5% 100 ML IV STA (13:42)
[2019-10-30] MEDS: HALOPERIDOL LACTATE 5 MG/ML 1 ML VIAL IM PRN (15:03)
[2019-10-30 17:22] LABS: Hematocrit (blood only) 35.6 % (37-47); Hemoglobin 11.3 g/dL (12.0-16.0); Mean Corpuscular Hemoglobin 28.3 pg (25-34); Mean Corpuscular Hgb Conc 31.7 g/dL (32-36); Mean Platelet Volume 9.6 fL (7.4-10.4); Platelet Count 200 K/uL (130-400); RDW Coefficient of Variation 13.9 % (11.5-14.5); RDW Standard Deviation 45.3 fL (36.4-46.3); White Blood Count 7.04 K/uL (4.8-10.8)
[2019-10-30 17:23] LABS: Oxygen Saturation VBG 81.7 %; pH VBG 7.44 (7.36-7.41)
[2019-10-30 17:39] LABS: BUN Creatinine Ratio 13.3 (10-20); Calcium 8.8 mg/dl (8.5-10.1); Creatinine Clr Calc Pharmacy 36.3 ml/min; Est GFR (African American) 42.1; Est GFR (Non-African American) 36.4; Magnesium 1.6 mg/dl (1.8-2.4); Phosphorus 3.1 mg/dl (2.5-4.9); Potassium 3.9 mmol/L (3.5-5.1)
[2019-10-30] MEDS: PIPERACILLIN/TAZOBACTAM 4.5 GM in DEXTROSE 5% 100 ML IV SCH (19:27)
[2019-10-30] MEDS: QUETIAPINE FUMARATE 25 MG TABLET PO SCH (21:55)
[2019-10-30] MEDS: LATANOPROST 0.005% OP SOLN 2.5 ML BTL OPB SCH (21:55)
[2019-10-31] MEDS: PIPERACILLIN/TAZOBACTAM 4.5 GM in DEXTROSE 5% 100 ML IV SCH ×4 (03:50→21:52)
[2019-10-31] MEDS: LEVOTHYROXINE SODIUM 88 MCG TABLET PO SCH (05:44)
[2019-10-31] MEDS: INSULIN ASPART 100 UNITS/ML 3 ML PEN SC SCH ×5 (05:46→21:49)
[2019-10-31] MEDS: AZITHROMYCIN 250 MG TAB PO SCH (08:22)
[2019-10-31] MEDS: ESCITALOPRAM OXALATE 10 MG TAB PO SCH (08:23)
[2019-10-31] MEDS: CETIRIZINE HCL 10 MG TABLET PO SCH (08:23)
[2019-10-31] MEDS: FOLIC ACID 1 MG TAB PO SCH (08:23)
[2019-10-31] MEDS: CALCIUM 600MG + VIT D 400 IU TAB PO SCH ×2 (08:23→21:18)
[2019-10-31] MEDS: MAGNESIUM OXIDE 400 MG TAB PO SCH ×2 (08:24→21:18)
[2019-10-31] MEDS: APIXABAN 2.5 MG TAB PO SCH ×2 (08:24→21:17)
[2019-10-31] MEDS: BusPIRone 15 MG TAB PO SCH ×2 (08:24→21:17)
[2019-10-31] MEDS: INSULIN GLARGINE SOLOSTAR 100 UNITS/ML 3 ML PEN SC SCH ×2 (08:49→21:49)
[2019-10-31] MEDS: SIMVASTATIN 20 MG TAB PO SCH (21:17)
[2019-10-31] MEDS: TRAZODONE HCL 50 MG TAB PO SCH (21:17)
[2019-10-31] MEDS: QUETIAPINE FUMARATE 25 MG TABLET PO SCH (21:17)
[2019-10-31] MEDS: LATANOPROST 0.005% OP SOLN 2.5 ML BTL OPB SCH ×2 (21:19→21:51)
--- NOTE | 2019-10-31 23:00 | Hospitalist Progress Note ---
Date of Service October 31, 2019 Assessment & Plan (1) Left lower lobe pneumonia: CXR on 10/24 showed small parenchymal infiltrate left base. - Worse CXR on 10/27. Added azithromycin after confirming with daughter that she is not really allergic. BioFire negative. MRSA swab negative. Covid testing sent. Stilllpending on 10/31/19 - On 10/28, broadened to Unasyn to better cover anaerobic bacteria. - Today, she is clinically stable. Breathing stable, O2 sat is good on room air. - Mental status appears to have improved as well. (2) Acute alteration in mental status: Per daughter, was just lethargic and had worsening responsiveness. Presently appears near baseline with pleasant conversation, AAOx1 (unclear on year and where she was). - Continue abx as above for possible pneumonia (3) Asymptomatic bacteriuria: Urine culture growing ESBL E. coli. Given her improvement with no coverage of this bug, I initially thought it was asymptomatic bacteruria. - However, she has declined in the last 2 days, so will switch abx to Zosyn to cover aspiration pneumonia as well as the urine bacteria. (4) Type 2 diabetes mellitus: A1c was 8.7% in 05/2019 & 8.8% this admission. - Continue Lantus 10 units SQ BID - Sliding scale insulin - Sugars better today with highest of 190. (5) Hypertension: BP presently 135/80 which is great for age and comorbidities. - Continue to monitor; not on any home meds (6) CKD (chronic kidney disease), stage III: Baseline Cr. 1.4, eGFR ~35. - At baseline presently. - Avoid nephrotoxic meds as able -> Refused labs this morning. (7) Anxiety and depression: Per prior neurology note, she has a history of depression. - Continue home buspirone, trazodone, & escitalopram (8) Dementia: Possibly Alzheimer's-type dementia, though neuropsychiatric testing was ordered in July and unsure if it was completed given coronavirus. - Had adverse reaction to steroids during the prior admission. Avoid if possible. - Monitor -> Appears she is having a very similar course to prior admission where she became fairly agitated and even aggressive during middle portion of her admission. (9) Hypothyroidism: TSH was 3.9 this admission. - Continue home Synthroid 88 mcg (10) History of pulmonary embolism: In 2014 with DVT as well. - Continue apixaban Admission and Anticipated Discharge Date Admission Date: October 25, 2019 Subjective 84 yo female reports feeling well. She is more awake and talkative as compared to prior days (from chart reviewing). Patient reorts her coughing has improved and her breathing is better. Patient denies any nausea, vomiting, diarrhea. Review of Systems Review of Systems: All systems reviewed & are unremarkable except as noted in HPI & below Physical Exam Physical Exam: Constitutional: WD/WN, vitals as above Eyes: EOM intact bilaterally; no conjunctival abnormality ENMT: external ear and nose normal, oropharynx normal Neck: trachea midline, no thyromegaly normal visual inspection Respiratory: normal respiratory effort, lungs clear to auscultation no respiratory distress Cardiovascular: RRR, no murmur, no edema Gastrointestinal (Abdomen): Inspection/Auscultation: abdomen normal to inspection; abdomen not distended Musculoskeletal: no cyanosis or clubbing, extremities motor strength 5/5 Skin: no rashes, warm and dry Neurologic: moves all extremities Psychiatric: Orientation: alert and oriented to person; Results & Data Results & Data ([facility]) Vital Signs (Past 12 Hours) Vital Signs Temp Pulse Resp BP Pulse Ox 10/31/19 15:12 37.1 C 83 20 131/68 94 PG Care Time/CCT Total # of Minutes Spent Total Time Spent with Patient: Total time spent is greater than 50% in coordination of care (as documented) at patient's floor/unit and/or counseling patient: Coding Level of Care Code 08115 Subseq Hosp Care Lvl 3 Diagnoses Left lower lobe pneumonia J18.9 Pneumonia type: due to unspecified organism Acute alteration in mental status R41.82 Asymptomatic bacteriuria R82.71 Type 2 diabetes mellitus E11.9 Hypertension I10 CKD (chronic kidney disease), stage III N18.3 Anxiety and depression F41.9; F32.9 Dementia F03.90 Hypothyroidism E03.9 History of pulmonary embolism Z86.711 Time Spent (min) 35 (1) Left lower lobe pneumonia Pneumonia type: due to unspecified organism Qualified Code(s): J18.9 - Pneumonia, unspecified organism
[2019-11-01 00:50] LABS: SARS CoV2 RNA (COVID-19) Not Detected (Not Detected)
[2019-11-01] MEDS: PIPERACILLIN/TAZOBACTAM 4.5 GM in DEXTROSE 5% 100 ML IV SCH ×3 (03:11→20:13)
[2019-11-01] MEDS: LEVOTHYROXINE SODIUM 88 MCG TABLET PO SCH (05:34)
[2019-11-01] MEDS: INSULIN ASPART 100 UNITS/ML 3 ML PEN SC SCH ×4 (09:00→20:15)
[2019-11-01] MEDS: INSULIN GLARGINE SOLOSTAR 100 UNITS/ML 3 ML PEN SC SCH ×2 (09:01→20:16)
[2019-11-01] MEDS: CALCIUM 600MG + VIT D 400 IU TAB PO SCH ×2 (09:35→20:13)
[2019-11-01] MEDS: APIXABAN 2.5 MG TAB PO SCH ×2 (09:35→20:13)
[2019-11-01] MEDS: AZITHROMYCIN 250 MG TAB PO SCH (09:36)
[2019-11-01] MEDS: MAGNESIUM OXIDE 400 MG TAB PO SCH ×2 (09:36→20:13)
[2019-11-01] MEDS: FOLIC ACID 1 MG TAB PO SCH (09:36)
[2019-11-01] MEDS: CETIRIZINE HCL 10 MG TABLET PO SCH (09:36)
[2019-11-01] MEDS: ESCITALOPRAM OXALATE 10 MG TAB PO SCH (09:36)
[2019-11-01] MEDS: BusPIRone 15 MG TAB PO SCH ×2 (09:37→20:14)
[2019-11-01 13:25] LABS: Basophils # (auto) 0.02 K/uL (0-0.2); Basophils % (auto) 0.3 %; Eosinophils # (auto) 0.31 K/uL (0-0.5); Hematocrit (blood only) 36.5 % (37-47); Hemoglobin 11.6 g/dL (12.0-16.0); Immature Granulocytes # (auto) 0.03 K/uL (0.00-0.02); Immature Granulocytes % (auto) 0.5 %; Lymphocytes # (auto) 0.81 K/uL (1.2-3.4); Lymphocytes % (auto) 13.1 %; Mean Corpuscular Hemoglobin 28.7 pg (25-34); Mean Corpuscular Hgb Conc 31.8 g/dL (32-36); Mean Corpuscular Volume 90.3 fL (80-100); Mean Platelet Volume 9.5 fL (7.4-10.4); Monocytes # (auto) 0.63 K/uL (0.11-0.59); Monocytes % (auto) 10.2 %; Neutrophils # (auto) 4.39 K/uL (1.4-6.5); Neutrophils % (auto) 70.9 %; Platelet Count 211 K/uL (130-400); RDW Coefficient of Variation 14.3 % (11.5-14.5); RDW Standard Deviation 46.9 fL (36.4-46.3); Red Blood Count 4.04 M/uL (4.2-5.4); White Blood Count 6.19 K/uL (4.8-10.8)
[2019-11-01 13:43] LABS: Calcium 8.7 mg/dl (8.5-10.1); Creatinine Clr Calc Pharmacy 27.1 ml/min; Est GFR (African American) 29.4; Est GFR (Non-African American) 25.4; Potassium 3.9 mmol/L (3.5-5.1)
[2019-11-01] MEDS ORDERED: LACTATED RINGER'S 1,000 ML IV SCH (15:45)
[2019-11-01] MEDS: TRAZODONE HCL 50 MG TAB PO SCH (20:14)
[2019-11-01] MEDS: SIMVASTATIN 20 MG TAB PO SCH (20:14)
[2019-11-01] MEDS: QUETIAPINE FUMARATE 25 MG TABLET PO SCH (20:14)
[2019-11-01] MEDS: LATANOPROST 0.005% OP SOLN 2.5 ML BTL OPB SCH (20:15)
--- NOTE | 2019-11-01 22:37 | Hospitalist Progress Note ---
Date of Service November 01, 2019 Assessment & Plan (1) Left lower lobe pneumonia: CXR on 10/24 showed small parenchymal infiltrate left base. - Worse CXR on 10/27. Added azithromycin after confirming with daughter that she is not really allergic. BioFire negative. MRSA swab negative.Covid is negative. - On 10/28, broadened to Unasyn to better cover anaerobic bacteria. -Switched to zosyn to cover aspiration pneumonia as well as urine bacteria. - Today, she is clinically stable. -Breathing stable, O2 sat is good on room air. - Mental status appears to have improved as well anticipate discharge tomorrow as vital signs normal, procal is undetectable. (2) Acute alteration in mental status: Per daughter, was just lethargic and had worsening responsiveness. Presently appears near baseline with pleasant conversation, AADeanna (unclear on year and where she was). - Continue abx as above for possible pneumonia (3) Asymptomatic bacteriuria: Urine culture growing ESBL E. coli. Given her improvement with no coverage of this bug, I initially thought it was asymptomatic bacteruria. - However, she has declined in the last 2 days, so will switch abx to Zosyn to cover aspiration pneumonia as well as the urine bacteria. (4) Type 2 diabetes mellitus: A1c was 8.7% in 05/2019 & 8.8% this admission. - Continue Lantus 10 units SQ BID - Sliding scale insulin - Sugars better today with highest of 190. (5) Hypertension: BP presently 135/80 which is great for age and comorbidities. - Continue to monitor; not on any home meds (6) CKD (chronic kidney disease), stage III: Baseline Cr. 1.4, eGFR ~35. - At baseline presently. - Avoid nephrotoxic meds as able -> Refused labs this morning. (7) Anxiety and depression: Per prior neurology note, she has a history of depression. - Continue home buspirone, trazodone, & escitalopram (8) Dementia: Possibly Alzheimer's-type dementia, though neuropsychiatric testing was ordered in July and unsure if it was completed given coronavirus. - Had adverse reaction to steroids during the prior admission. Avoid if possible. - Monitor -> Appears she is having a very similar course to prior admission where she became fairly agitated and even aggressive during middle portion of her admission. (9) Hypothyroidism: TSH was 3.9 this admission. - Continue home Synthroid 88 mcg (10) History of pulmonary embolism: In 2014 with DVT as well. - Continue apixaban UPDATED DAUGHTER Admission and Anticipated Discharge Date Admission Date: October 25, 2019 Subjective 84 yo female reports feeling more awake. She states she is breathing better, her cough has improved as well. Review of Systems Review of Systems: All systems reviewed & are unremarkable except as noted in HPI & below Physical Exam Physical Exam: Constitutional: WD/WN, vitals as above Eyes: EOM intact bilaterally; no conjunctival abnormality ENMT: external ear and nose normal, oropharynx normal Neck: trachea midline, no thyromegaly normal visual inspection Respiratory: normal respiratory effort, lungs clear to auscultation no respiratory distress Cardiovascular: RRR, no murmur, no edema Gastrointestinal (Abdomen): Inspection/Auscultation: abdomen normal to inspection; abdomen not distended Musculoskeletal: no cyanosis or clubbing, extremities motor strength 5/5 Skin: no rashes, warm and dry Neurologic: moves all extremities Psychiatric: Orientation: alert and oriented to person; Results & Data Results & Data ([facility]) Vital Signs (Past 12 Hours) Vital Signs Temp Pulse Pulse Resp BP Pulse Ox 11/01/19 22:36 36.7 C 85 19 98/63 L 94 11/01/19 15:35 36.7 C 109 H 16 103/68 93 11/01/19 11:24 36.6 C 76 20 126/75 94 PG Care Time/CCT Total # of Minutes Spent Total Time Spent with Patient: Total time spent is greater than 50% in coordination of care (as documented) at patient's floor/unit and/or counseling patient: Coding Level of Care Code 14600 Subseq Hosp Care Lvl 3 Diagnoses Left lower lobe pneumonia J18.9 Pneumonia type: due to unspecified organism Acute alteration in mental status R41.82 Asymptomatic bacteriuria R82.71 Type 2 diabetes mellitus E11.9 Hypertension I10 CKD (chronic kidney disease), stage III N18.3 Anxiety and depression F41.9; F32.9 Dementia F03.90 Hypothyroidism E03.9 History of pulmonary embolism Z86.711 Time Spent (min) 35 (1) Left lower lobe pneumonia Pneumonia type: due to unspecified organism Qualified Code(s): J18.9 - Pneumonia, unspecified organism
[2019-11-02] MEDS: PIPERACILLIN/TAZOBACTAM 4.5 GM in DEXTROSE 5% 100 ML IV SCH ×2 (03:20→12:40)
[2019-11-02] MEDS: LEVOTHYROXINE SODIUM 88 MCG TABLET PO SCH (05:40)
[2019-11-02] MEDS: FOLIC ACID 1 MG TAB PO SCH (07:35)
[2019-11-02] MEDS: CETIRIZINE HCL 10 MG TABLET PO SCH (07:35)
[2019-11-02] MEDS: CALCIUM 600MG + VIT D 400 IU TAB PO SCH (07:35)
[2019-11-02] MEDS: AZITHROMYCIN 250 MG TAB PO SCH (07:35)
[2019-11-02] MEDS: BusPIRone 15 MG TAB PO SCH (07:36)
[2019-11-02] MEDS: MAGNESIUM OXIDE 400 MG TAB PO SCH (07:36)
[2019-11-02] MEDS: ESCITALOPRAM OXALATE 10 MG TAB PO SCH (07:36)
[2019-11-02] MEDS: APIXABAN 2.5 MG TAB PO SCH (07:36)
--- NOTE | 2019-11-02 08:34 | XRay Report ---
XR chest 2V PA/lateral CLINICAL HISTORY: Shortness of breath. Pneumonia. COMPARISON STUDY: Chest radiograph October 29, 2019. FINDINGS: Incidental note is made of an old proximal left humeral fracture. Is no pneumothorax or ple ural effusion. There is no evidence for pulmonary edema. Moderate cardiomegaly is unchanged. There is mild left basilar opacity. IMPRESSION: 1. Mild left basilar opacity. Atelectasis is favored although an infectious process could appear kelly lar. 2. Moderate cardiomegaly without evidence for pulmonary edema. ACT 112: Negative or not required by law. Electronically signed by: Tanner Zambrano M.D. 11/02/2019 8:33 AM
[2019-11-02] MEDS: INSULIN ASPART 100 UNITS/ML 3 ML PEN SC SCH ×2 (08:57→12:42)
[2019-11-02] MEDS: INSULIN GLARGINE SOLOSTAR 100 UNITS/ML 3 ML PEN SC SCH (08:58)
[2019-11-02 10:13] LABS: BUN Creatinine Ratio 13.3 (10-20); Calcium 9.2 mg/dl (8.5-10.1); Creatinine Clr Calc Pharmacy 27.4 ml/min; Est GFR (African American) 29.8; Est GFR (Non-African American) 25.7; Potassium 3.8 mmol/L (3.5-5.1)
[2019-11-02 15:29] VITALS: BP 129/71; PULSE 83; TEMP 98.1; O2SAT 93
--- NOTE | 2019-11-08 00:32 | Discharge Summary ---
Date of Service November 02, 2019 Admission HPI Per Admitting Provider Dana is an 84-year-old female with a past medical history of type 2 diabetes, anxiety and depression, arthritis, dementia, asthma, hypertension, CKD 3, and DVT with PE in 2015 on chronic Eliquis therapy who presents with increased confusion and concerns for acute weakness while getting out of bed for 1 day. Dana is a resident of [facility]. She seen at the bedside with her daughter. She reportedly was going to get out of bed this morning when she was very weak and slipped, falling to the floor. She does not remember her fall, but reports she did not hit her head. Her daughter reports that she seems to have increased confusion, her dementia is acutely worse, and she was confused trying to leave the facility. [facility] has been under quarantine with no visitors, Dana has not been around any sick contacts and has not had any recent travel. She endorses that she gets an intermittent cough productive for clear mucus the size of her pinky tip, but denies acute chest mile n, chest pressure, shortness of breath, syncope, presyncope, fever, chills, nausea, vomiting, diarrhea, constipation. She reports her appetite is good. She denies urinary symptoms including polyuria, dysuria, and increased urgency. She denies belly pain. She has had UTIs and pneumonia in the past, notes that she has several antibiotic allergies but does not remember what happens. Review shows allergies to macrolides, sulfa, Doxy, oxybutynin, codeine, Flonase, salmeterol, troleandomycin Medical history: Reviewed in EMR Medications: Reviewed in EMR and on transfer paperwork. Medications include buspirone 30 mg twice daily, Caltrate twice daily, cetirizine 5 mg daily, Eliquis 2.5 mg twice daily, escitalopram 10 mg daily, folic acid daily, Humalog sliding scale, duo nebs, Lantus 28 units in the morning, Synthroid 88 mcg daily, losartan 25 mg daily, simvastatin 20 mg nightly, trazodone 50 mg nightly as needed Surgical history: Reviewed in EMR, patient a poor historian Allergies: As noted above, reviewed in EMR Social: [facility]. Denies alcohol, tobacco, and recreational drug use CODE STATUS: Full code, discussed with patient and her daughter present Principal Diagnosis Pneumonia Discharge Exam Constitutional: WD/WN, vitals as above Eyes: EOM intact bilaterally; no conjunctival abnormality ENMT: external ear and nose normal, oropharynx normal Neck: trachea midline, no thyromegaly normal visual inspection Respiratory: normal respiratory effort, lungs clear to auscultation no respiratory distress Cardiovascular: RRR, no murmur, no edema Gastrointestinal (Abdomen): Inspection/Auscultation: abdomen normal to inspection; abdomen not distended Musculoskeletal: no cyanosis or clubbing, extremities motor strength 5/5 Skin: no rashes, warm and dry Neurologic: moves all extremities Psychiatric: Orientation: alert and oriented to person; Discharge Data Allergies Allergy/AdvReac Type Severity Reaction Status Date / Time doxycycline Allergy Mild Rash Verified 11/04/19 22:15 oxybutynin Allergy Mild Rash Verified 11/04/19 22:15 codeine Allergy Unknown Unknown Verified 11/04/19 22:15 fluticasone Allergy Unknown Unknown Verified 11/04/19 22:15 salmeterol Allergy Unknown Unknown Verified 11/04/19 22:15 Sulfa (Sulfonamide Allergy Unknown Unknown Verified 11/04/19 22:15 Antibiotics) troleandomycin Allergy Unknown Unknown Verified 11/04/19 22:15 Macrolide Antibiotics Allergy Unknown Verified 11/04/19 22:15 milk Allergy noted as Verified 11/05/19 02:13 "milk protein extract" allergy Consultations 10/25/19 21:22 ED Decision to Admit Stat Ordered Studies 10/25/19 19:41 CT head/brain wo con Stat Hospital Course (1) Left lower lobe pneumonia: CXR on 10/24 showed small parenchymal infiltrate left base. - Worse CXR on 10/27. Added azithromycin after confirming with daughter that she is not really allergic. BioFire negative. MRSA swab negative.Covid is negative. - On 10/28, broadened to Unasyn to better cover anaerobic bacteria. -Switched to zosyn to cover aspiration pneumonia as well as urine bacteria. - Today, she is clinically stable. -Breathing stable, O2 sat is good on room air. - Mental status appears to have improved as well, procal is undetectable. will stop antibiotics on discharge for pneumonia .updated daughter on the phone will continue on nitrofurantoin for possible UTI. (2) Acute alteration in mental status: Per daughter, was just lethargic and had worsening responsiveness. Presently appears near baseline with pleasant conversation, AAOx1 (unclear on year and where she was). (3) Asymptomatic bacteriuria: Unsure if aymsptomatic vs UTI Will treat asa stated above. Urine culture growing ESBL E. coli. (4) Type 2 diabetes mellitus: A1c was 8.7% in 05/2019 & 8.8% this admission. - Continue Lantus 10 units SQ BID - Sliding scale insulin - Sugars better today with highest of 190. (5) Hypertension: BP presently 135/80 which is great for age and comorbidities. - Continue to monitor; not on any home meds (6) CKD (chronic kidney disease), stage III: Baseline Cr. 1.4, eGFR ~35. - At baseline presently. - Avoid nephrotoxic meds as able -> Refused labs this morning. (7) Anxiety and depression: Per prior neurology note, she has a history of depression. - Continue home buspirone, trazodone, & escitalopram (8) Dementia: Possibly Alzheimer's-type dementia, though neuropsychiatric testing was ordered in July and unsure if it was completed given coronavirus. - Had adverse reaction to steroids during the prior admission. Avoid if possible. - Monitor -> Appears she is having a very similar course to prior admission where she became fairly agitated and even aggressive during middle portion of her admission. (9) Hypothyroidism: TSH was 3.9 this admission. - Continue home Synthroid 88 mcg (10) History of pulmonary embolism: In 2014 with DVT as well. - Continue apixaban Total Time Total Time Spent Total Time Spent (In Minutes): 35 Total Time Includes: Examination of the Patient, Discharge Planning and Medication Reconciliation Discharge Plan Discharge Items Patient Disposition: Personal Group Home Reason For Visit: CONFUSION, FALL, PNA Discharge Diagnosis: confusion Condition on Discharge: Good Activity: Resume your previous activity Non-emergency contact: Primary Care Provider Call non-emergency contact if: you have any medication questions Follow-up/Referrals: Eve Weaver DO [Primary Care Provider] - Diet: Carb Consistent or DM2 Addtl Attending Provider Instructions: You have been hospitalized for an acute medical problem. During your stay at [facility], we have made an effort to correct the problem that brought you to the hospital while keeping you as comfortable as possible. Medications were used to bring your condition under control and your discharge instructions will include directions for any medications you should take after leaving the hospital. Please make sure you see your Primary Care Provider as part of your follow up plan. Followup with PCP in 1-2 weeks. Pending Studies at Discharge: No Stand-Alone Forms: My Circadence, Smoking Cessation Skilled Items Patient informed of condition?: No DNR: No Discharge Level of Care: Other Communicable Disease: No Discharge Prognosis: Stable Lines: None Urinary Catheter: No Medications and DC Order Prescriptions: New nitrofurantoin macrocrystal 100 mg capsule 100 mg PO BID 5 Days Qty: 10 RF: 0 Continued thiamine HCl (vitamin B1) [Vitamin B-1] 50 mg tablet 50 mg PO QAM RF: 0 Lantus U-100 Insulin 100 unit/mL solution 28 units subcut QAM RF: 0 Caltrate 600-D Plus Minerals 600 mg calcium- 800 unit-50 mg tablet 1 tab PO BID RF: 0 latanoprost [Xalatan] 0.005 % Drops 1 drp OPB HS RF: 0 trazodone 50 mg Tablet 50 mg PO HS RF: 0 levothyroxine 88 mcg Tablet 88 mcg PO QAM RF: 0 simvastatin 20 mg Tablet 20 mg PO HS RF: 0 folic acid 1 mg Tablet 1 mg PO QAM RF: 0 escitalopram oxalate 10 mg Tablet 10 mg PO QAM RF: 0 acetaminophen [Tylenol Extra Strength] 500 mg tablet 500 mg PO TID RF: 0 Eliquis 2.5 mg Tablet 2.5 mg PO BID RF: 0 ipratropium-albuterol 0.5 mg-3 mg(2.5 mg base)/3 mL Solution For Nebulization 3 ml INHALATION TID RF: 0 Artificial Tears (cmc) 1 % Drops 1 drp OPB QID RF: 0 buspirone 30 mg tablet 30 mg PO BID RF: 0 insulin lispro [Humalog U-100 Insulin] 100 unit/mL solution 1 sliding scale dose subcut AC RF: 0 cetirizine 10 mg Tablet 5 mg PO DAILY RF: 0 diphenhydramine HCl 25 mg Tablet 25 mg PO Q6H PRN (Reason: Itching) RF: 0 benzonatate [Tessalon Perles] 100 mg capsule 100 mg PO TID PRN (Reason: Cough) RF: 0 Discontinued losartan 25 mg tablet 25 mg PO QAM RF: 0 Discharge Orders: Discharge Order (Routine); Ordered 11/02/19 Ordered By: Jorge Aragon/Other Patient Handouts: Diabetes Manage A1C Test Admission Data Admit Date/Time: 10/25/19 23:37 Attending Provider: Jorge Fong Admit Provider: Carlos Mendoza Primary Care Provider: Eve Weaver Other Providers: Adi Munoz Other Interventions: Discharge Summary Assessment (RN) Last Done: 11/02/19 15:18 DC Date/Time DO NOT enter until pt leaves facility: 11/02/19 16:11 Coding Level of Care Code D/C Day Management >30 mins Diagnoses Left lower lobe pneumonia J18.9 Pneumonia type: due to unspecified organism Acute alteration in mental status R41.82 Asymptomatic bacteriuria R82.71 Type 2 diabetes mellitus E11.9; Z79.4 Diabetes mellitus complication status: without complication 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
--- NOTE | 2019-11-08 08:18 | Coding Query ---
To promote full compliance with coding requirements relating to patient care, provider participation is requested in all cases of shoe coverer uncertainty. Please assist us with the question(s) below: Coding Question(s): The diagnosis below was documented in the 10/27/19 Progress Note, then subsequently fell off all further documentation. Please indicate if it is still a possible diagnosis or ruled out. Physician's Response(s): METABOLIC ENCEPHALOPATHY ( x ) Diagnosed and POA ( ) Diagnosed and not POA ( ) Ruled out ( ) Other (please specify) MTDD
--- NOTE | 2019-11-15 06:09 | Coding Query ---
To promote full compliance with coding requirements relating to patient care, provider participation is requested in all cases of stretching machine tender frame uncertainty. Please assist us with the question(s) below: Coding Question(s): The diagnosis(es) below were documented in the 11/01/19 Progress Note and Discharge Summary (the aspiration pneumonia part) with documentation of, "(1) Left lower lobe pneumonia: CXR on 10/24 showed small parenchymal infiltrate left base. - Worse CXR on 10/27. Added azithromycin after confirming with daughter that she is not really allergic. BioFire negative. MRSA swab negative.Covid is negative. - On 10/28, broadened to Unasyn to better cover anaerobic bacteria. -Switched to zosyn to cover aspiration pneumonia as well as urine bacteria." The Left Lower Lobe Pneumonia was documented throughout the record. Please indicate if each is still a possible diagnosis or ruled out. Physician's Response(s): ASPIRATION PNEUMONIA (documented in Progress Note 11/01/19 and Discharge Summary as shown above) ( ) Diagnosed and POA ( ) Diagnosed and not POA ( ) Ruled out ( ) Other (please specify) LEFT LOWER LOBE PNEUMONIA (documented throughout the record) ( x ) Diagnosed and POA ( ) Diagnosed and not POA ( ) Ruled out ( ) Other (please specify) Signed By: OTF
--- NOTE | 2019-11-15 06:26 | Coding Query ---
BMI To promote full compliance with coding requirements relating to patient care, physician participation is requested in all cases of protection officer uncertainty. Please assist us with the question(s) below: Please place an X within the parenthesis (x). If other, please document: BMI 49.4 was documented in this record for this patient. If the BMI is significant, please check the box that provides a more specific associated diagnosis: ( ) Overweight/Obese ( ) Obesity ( ) Morbid obesity ( ) Obesity Hypoventilation Syndrome (OHS) ( ) Heathy weight, not significant ( ) Underweight/Thin ( ) Other, please specify Thank you Cecilia VANESSA
== END 2019-11-02 16:11 | disposition home or self-care (01) | DRG 193 ==
LOC: ED 19:32 → SUATTDRO 23:37 → 2N 23:37 → 2S 10-28 14:17 → 2W 11-01 10:59

== ENCOUNTER 2019-11-04 20:28 | Inpatient (IN) ==
[2019-11-04] MEDS ORDERED: ACETAMINOPHEN 500 MG TAB PO STA (20:38)
[2019-11-04] MEDS ORDERED: SODIUM CHLORIDE 0.9% 500 ML IV ONE (20:38)
--- NOTE | 2019-11-04 20:52 | Emergency Department Note ---
Impression & Plan Pneumonia, Fever, Gall stones, Confusion ED Provider Note NAME: CARL HERRERA AGE: 84 SEX: F : 1935 ARRIVES VIA: Ambulance INFORMANT: Patient, the prehospital personnel as well as the alf documentation. ED PROVIDER(S): Bang Martins DO CHIEF COMPLAINT: Fever. HPI: The patient is an 84-year-old female who presented to the emergency department by ambulance for an evaluation of altered mental status. The patient was recently discharged from our facility 2 days ago for pneumonia. The patient was discharged to a alf placement and has been noted to be lethargic over the last 48 hours. She was sent back to the emergency department today after she was found to have an elevated temperature. The patient herself offers no complaints although when prompted she does complain of difficulty breathing. She denies any abdominal pain or flank pain. She denies any dysuria or frequency. I reviewed the patient's recent visit does state that she went home with an antibiotic for pneumonia. She also had bacteriuria but this was felt to be coincidental and not the cause of the patient's infection previously. Also the patient had a negative COVID swab while she was admitted to the hospital last time. She is had no COVID exposures as far she knows other than her recent hospitalization as well as living in a alf. The patient does not admit to any chest pain. She denies any lower extremity swelling but she does complain of generalized weakness. ROS: See above HPI for pertinent positives & negatives. A total of 10 systems reviewed and were otherwise negative. PAST MEDICAL HISTORY: See Below PAST SURGICAL HISTORY: See Below FAMILY HISTORY: See Below SOCIAL HISTORY: See Below HOME MEDICATIONS: See Below ALLERGIES: See Below VITALS: See Below PHYSICAL EXAMINATION: GENERAL: The patient is listless and slow to respond to questioning. She is awake to verbal commands and follows commands well. EYES: The conjunctivae are clear. The pupils are round and reactive. EARS, NOSE, MOUTH AND THROAT: The nose is without any evidence of any deformity. Mucous membranes are moist. Tongue is midline. NECK: The neck is nontender and supple. RESPIRATORY: Shallow breath sounds are noted. Absent breath sounds are noted at the left base compared to the right. There is no tachypnea. CARDIOVASCULAR: Regular rate and rhythm noted there no murmurs rubs or gallops normal S1 normal S2. GASTROINTESTINAL: The abdomen is moderately distended and diffusely tender to palpation. There is no specific guarding or rigidity. MUSCULOSKELETAL/EXTREMITIES: There is no evidence of gross deformity full range of motion is noted in the hips and shoulders. SKIN: There is no obvious evidence of any rash. Skin is warm and dry. There is pedal edema bilaterally. No calf tenderness was elicited. NEUROLOGIC: Patient is awake and oriented to person place but not time or sit uation. Strength was symmetric but diminished. MEDICAL DECISION MAKING: The patient is an 84-year-old female who presented to the emergency department for an evaluation of altered mental status. The patient was recently discharged from our facility with a diagnosis of pneumonia. She also was found to have asymptomatic bacteriuria. The patient was started on an antibiotic but was discharged to a personal halfway. She presents to the emergency department from her residence this evening because of altered mental status. According to her family member who also helps with some of the history the patient has had ongoing symptoms but also has a history of pneumonia that does not resolve very quickly. I discussed the patient's laboratory and radiographic studies with her. She was treated with IV fluids as well as IV magnesium. Her white blood cell count was not elevated. According to her family member she was found to have hypoxia prior to arrival but at this time she is holding and improved saturation on supplemental oxygen. Because of her ongoing symptoms and her other findings I discussed her case with the on-call [facility] hospitalist. They have agreed to evaluate the patient in the emergency department for further management and disposition. Triage Nursing notes reviewed. Prior medical records reviewed Vital Signs: reviewed and remarkable for a widened pulse pressure. Differential diagnosis: Viral syndrome, otitis, pharyngitis, pneumonia, influenza, meningitis, urinary tract infection, sepsis, bacteremia, as well as other pathologies. ER treatment provided: See below Diagnostics interpreted by me: ECG: EKG was obtained in the emergency department. My interpretation is sinus tachycardia 113 bpm. There is no ectopy. Poor R wave progression was noted. Diffuse ST depressions were noted. This was compared to a tracing from October 28, 2019. There was an increase in the ventricular rate otherwise no specific changes were noted. Cardiac Monitoring: An order was placed for continuous cardiac monitoring. The monitor shows a rate of 110 with sinus tachycardia rhythm. Laboratory studies: As stated above and show below. Imaging studies: See below Consultation(s): 2315: I discussed this case with Dr. Truong. She is agreed to evaluate the patient in the emergency department for further management and disposition. Past Med/Surg History Medical History Allergic rhinitis Anxiety and depression Arthritis Asthma Cardiomyopathy (Chronic) CKD (chronic kidney disease), stage III Dementia Dyslipidemia Endometrioid adenocarcinoma of uterus (Chronic) History of DVT (deep vein thrombosis) (2014) "LLE 2014" History of pulmonary embolism (2014) "2014" Hypertension Hypothyroidism Hypothyroidism Type 2 diabetes mellitus (Chronic) Urinary incontinence Vertigo Vitamin D deficiency Surgical History H/O cataract extraction History of robot-assisted laparoscopic hysterectomy (Resolved 10/2018) 11/10/18 - with BSO with B/L SLN Biopsy and Right pelvic lymph node dissection and cystoscopy (Dr. Buffy Mayo in [place]) S/P appendectomy as a child S/P foot surgery (2004) S/P tonsillectomy and adenoidectomy Family History Mother , Passed in 80s/90's of old age No problems noted. Father , Passed in 70's of black lung complications ([place]) Lung disease Sister , Passed in 80's of unknown No problems noted. Sister , Passed in 60's of unknown No problems noted. Brother , Passed in 60's of unknown (alcoholic) Hypertension Brother , Passed in late 70's of unknown Lung disease Daughter No problems noted. Son No problems noted. Son No problems noted. Son No problems noted. 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 Feels Safe at Home: Yes Smoking Status: Unknown if ever smoked Hx Alcohol Use: No Hx Substance Use: No Childhood Exposure to Second-Hand Smoke: No Diet Comment: well balanced diet caffeine: No during the past year weight has: increased > 10 lbs Dental Care, Regularly: No Physical Activity Frequency: Does not Exercise Seatbelt Use: always Sunscreen Use: No Allergies Allergies Allergy/AdvReac Type Severity Reaction Status Date / Time doxycycline Allergy Mild Rash Verified 11/04/19 22:15 oxybutynin Allergy Mild Rash Verified 11/04/19 22:15 codeine Allergy Unknown Unknown Verified 11/04/19 22:15 fluticasone Allergy Unknown Unknown Verified 11/04/19 22:15 salmeterol Allergy Unknown Unknown Verified 11/04/19 22:15 Sulfa (Sulfonamide Allergy Unknown Unknown Verified 11/04/19 22:15 Antibiotics) troleandomycin Allergy Unknown Unknown Verified 11/04/19 22:15 Macrolide Antibiotics Allergy Unknown Verified 11/04/19 22:15 milk protein extract Allergy Unknown Uncoded 11/04/19 22:15 Home Meds Home Medications Medication Instructions Recorded Confirmed escitalopram oxalate 10 mg PO QAM 08/04/18 11/04/19 folic acid 1 mg PO QAM 08/04/18 11/04/19 latanoprost [Xalatan] 1 drp OPB HS 08/04/18 11/04/19 levothyroxine 88 mcg PO QAM 08/04/18 11/04/19 simvastatin 20 mg PO HS 08/04/18 11/04/19 trazodone 50 mg PO HS 08/04/18 11/04/19 buspirone 30 mg PO BID 12/12/18 11/04/19 acetaminophen 500 mg tablet 500 mg PO TID 12/16/18 11/04/19 calcium 600 mg-D3 800 unit-mag11 1 tab PO BID tab 02/10/19 11/04/19 50 wc-dxoo-glagfw-cristofer-s.borat tablet insulin lispro 100 unit/mL 1 sliding scale dose SUBCUT AC ml 02/10/19 11/04/19 subcutaneous solution Eliquis 2.5 mg PO BID 03/13/19 11/04/19 insulin glargine 100 unit/mL 28 units SUBCUT QAM ml 03/23/19 11/04/19 subcutaneous solution Artificial Tears (cmc) 1 drp OPB QID 06/04/19 11/04/19 ipratropium-albuterol 3 ml INHALATION TID 06/04/19 11/04/19 thiamine HCl (vitamin B1) 50 mg 50 mg PO QAM 08/03/19 11/04/19 tablet benzonatate [Tessalon Perles] 100 mg PO TID PRN 10/25/19 11/04/19 cetirizine 5 mg PO DAILY 10/25/19 11/04/19 diphenhydramine HCl 25 mg PO Q6H PRN 10/25/19 11/04/19 Previous Rx's Medication Instructions Recorded nitrofurantoin macrocrystal 100 mg PO BID 5 Days #10 cap 11/02/19 Results & Data (ED) Vital Signs Vital Signs - 24 hr 11/04/19 20:39 11/04/19 20:40 11/04/19 20:41 Temperature 38.7 C H Temperature Source Oral Pulse Rate 105 H Pulse Rate [Apical] Pulse Rhythm [Apical] Pulse Strength [Apical] Respiratory Rate 24 Respiratory Effort / Characteristics Respiratory Depth Respiratory Pattern Blood Pressure 130/92 Blood Pressure [Right Arm] Blood Pressure Mean 104 Blood Pressure Mean [Right Arm] Blood Pressure Position [Right Arm] Pulse Oximetry 90 90 Oxygen Delivery Method Nasal Cannula Room Air Nasal Cannula Room Air Oxygen Flow Rate 0 Sepsis Recent Fever Within 48 Hours Yes Sepsis New/Unexplained Change in Mental Status Yes Sepsis Action Taken by Nursing Physician Notified Oxygen Flow Rate - Titration 2 Pulse Oximetry Post Tiitration 97 11/04/19 21:10 11/04/19 21:45 11/04/19 22:14 Temperature Temperature Source Pulse Rate Pulse Rate [Apical] 105 H 86 98 H Pulse Rhythm [Apical] Regular Pulse Strength [Apical] Normal Respiratory Rate 28 H 26 H 20 Respiratory Effort / Characteristics Non-Labored Respiratory Depth Normal Respiratory Pattern Regular Blood Pressure Blood Pressure [Right Arm] 120/69 143/72 H 133/70 Blood Pressure Mean Blood Pressure Mean [Right Arm] 86 95 91 Blood Pressure Position [Right Arm] Lying Pulse Oximetry 98 98 99 Oxygen Delivery Method Nasal Cannula Nasal Cannula Nasal Cannula Oxygen Flow Rate 2 2 Sepsis Recent Fever Within 48 Hours Sepsis New/Unexplained Change in Mental Status Sepsis Action Taken by Nursing Oxygen Flow Rate - Titration Pulse Oximetry Post Tiitration 11/04/19 22:18 11/04/19 22:45 11/04/19 23:00 Temperature 37 C Temperature Source Oral Pulse Rate Pulse Rate [Apical] 78 78 Pulse Rhythm [Apical] Pulse Strength [Apical] Respiratory Rate 26 H 23 Respiratory Effort / Characteristics Respiratory Depth Respiratory Pattern Blood Pressure Blood Pressure [Right Arm] 114/73 129/59 L Blood Pressure Mean Blood Pressure Mean [Right Arm] 86 82 Blood Pressure Position [Right Arm] Pulse Oximetry 98 99 Oxygen Delivery Method Nasal Cannula Nasal Cannula Oxygen Flow Rate 2 2 Sepsis Recent Fever Within 48 Hours Sepsis New/Unexplained Change in Mental Status Sepsis Action Taken by Nursing Oxygen Flow Rate - Titration Pulse Oximetry Post Tiitration Home Medications Current Medication List: was personally reviewed by me Laboratory Data Attestation: I reviewed the patient's lab results. Result diagrams: 11/04/19 21:00 11/04/19 21:00 Lab Results 11/04/19 11/04/19 11/04/19 Range/Units 21:00 21:00 21:00 WBC 9.83 (4.8-10.8) K/uL RBC 4.08 L (4.2-5.4) M/uL Hgb 11.6 L (12.0-16.0) g/dL Hct 37.1 (37-47) % MCV 90.9 (80-100) fL MCH 28.4 (25-34) pg MCHC 31.3 L (32-36) g/dL RDW Std Deviation 47.4 H (36.4-46.3) fL RDW Coeff of Beverley 14.3 (11.5-14.5) % Plt Count 184 (130-400) K/uL MPV 10.0 (7.4-10.4) fL Immature Gran % (Auto) 0.6 % Neut % (Auto) 89.0 % Lymph % (Auto) 1.6 % [place] % (Auto) 5.5 % Eos % (Auto) 3.2 % Baso % (Auto) 0.1 % Immature Gran # (Auto) 0.06 H (0.00-0.02) K/uL Neut # (Auto) 8.75 H (1.4-6.5) K/uL Lymph # (Auto) 0.16 L (1.2-3.4) K/uL [place] # (Auto) 0.54 (0.11-0.59) K/uL Eos # (Auto) 0.31 (0-0.5) K/uL Baso # (Auto) 0.01 (0-0.2) K/uL PT 11.8 (9.0-12.0) Seconds INR 1.1 (0.9-1.1) APTT 25.1 (21.0-31.0) Seconds PTT Ratio 0.9 Sodium (136-145) mmol/L Potassium (3.5-5.1) mmol/L Chloride (98-107) mmol/L Carbon Dioxide (21-32) mmol/L Anion Gap (3-11) BUN (7-18) mg/dl Creatinine (0.6-1.2) mg/dl Est Cr Clr Drug Dosing Est GFR ( Amer) Est GFR (Non-Af Amer) BUN/Creatinine Ratio (10-20) Glucose (70-99) mg/dl Lactate (0.4-2.0) mmol/L Calcium (8.5-10.1) mg/dl Magnesium (1.8-2.4) mg/dl Total Bilirubin (0.2-1) mg/dl AST (15-37) U/L ALT (12-78) U/L Alkaline Phosphatase (45-117) U/L Troponin I (0-0.045) ng/ml Total Protein (6.4-8.2) gm/dl Albumin (3.4-5.0) gm/dl Globulin (2.5-4.0) gm/dl Albumin/Globulin Ratio (0.9-2) Procalcitonin 0.20 (0-0.5) ng/ml Urine Color Urine Appearance (Clear) Urine pH (4.5-7.5) Ur Specific [place] (1.000-1.030) Urine Protein (Negative) Urine Glucose (UA) (Negative) Urine Ketones (Negative) Urine Blood (Negative) Urine Nitrite (Negative) Urine Bilirubin (Negative) Urine Urobilinogen (Negative) Ur Leukocyte Esterase (Negative) Urine WBC (Auto) (0-5) /hpf Urine RBC (Auto) (0-4) /hpf U Hyaline Cast (Auto) (0-5) /lpf U Epithel Cells (Auto) (0-5) /lpf Urine Bacteria (Auto) (Negative) 11/04/19 11/04/19 11/04/19 Range/Units 21:00 21:16 21:31 WBC (4.8-10.8) K/uL RBC (4.2-5.4) M/uL Hgb (12.0-16.0) g/dL Hct (37-47) % MCV (80-100) fL MCH (25-34) pg MCHC (32-36) g/dL RDW Std Deviation (36.4-46.3) fL RDW Coeff of Beverley (11.5-14.5) % Plt Count (130-400) K/uL MPV (7.4-10.4) fL Immature Gran % (Auto) % Neut % (Auto) % Lymph % (Auto) % [place] % (Auto) % Eos % (Auto) % Baso % (Auto) % Immature Gran # (Auto) (0.00-0.02) K/uL Neut # (Auto) (1.4-6.5) K/uL Lymph # (Auto) (1.2-3.4) K/uL [place] # (Auto) (0.11-0.59) K/uL Eos # (Auto) (0-0.5) K/uL Baso # (Auto) (0-0.2) K/uL PT (9.0-12.0) Seconds INR (0.9-1.1) APTT (21.0-31.0) Seconds PTT Ratio Sodium 140 (136-145) mmol/L Potassium 3.9 (3.5-5.1) mmol/L Chloride 105 (98-107) mmol/L Carbon Dioxide 31 (21-32) mmol/L Anion Gap 4.0 (3-11) BUN 16 (7-18) mg/dl Creatinine 1.62 H (0.6-1.2) mg/dl Est Cr Clr Drug Dosing Not Reportable Est GFR ( Amer) 33.2 Est GFR (Non-Af Amer) 28.6 BUN/Creatinine Ratio 10.1 (10-20) Glucose 192 H (70-99) mg/dl Lactate 1.6 (0.4-2.0) mmol/L Calcium 8.8 (8.5-10.1) mg/dl Magnesium 1.5 L (1.8-2.4) mg/dl Total Bilirubin 0.4 (0.2-1) mg/dl AST 15 (15-37) U/L ALT 18 (12-78) U/L Alkaline Phosphatase 63 (45-117) U/L Troponin I < 0.015 (0-0.045) ng/ml Total Protein 6.4 (6.4-8.2) gm/dl Albumin 3.1 L (3.4-5.0) gm/dl Globulin 3.3 (2.5-4.0) gm/dl Albumin/Globulin Ratio 0.9 (0.9-2) Procalcitonin (0-0.5) ng/ml Urine Color Yellow Urine Appearance Clear (Clear) Urine pH 6.0 (4.5-7.5) Ur Specific [place] 1.023 (1.000-1.030) Urine Protein 1+ H (Negative) Urine Glucose (UA) Trace H (Negative) Urine Ketones Trace H (Negative) Urine Blood Negative (Negative) Urine Nitrite Negative (Negative) Urine Bilirubin Negative (Negative) Urine Urobilinogen Negative (Negative) Ur Leukocyte Esterase Negative (Negative) Urine WBC (Auto) 1-5 (0-5) /hpf Urine RBC (Auto) 0-4 (0-4) /hpf U Hyaline Cast (Auto) 1-5 (0-5) /lpf U Epithel Cells (Auto) 10-20 H (0-5) /lpf Urine Bacteria (Auto) Negative (Negative) Administered Medications Magnesium Sulfate/Dextrose (Magnesium Sulfate / D5w) 1 gm in 100 mls @ 100 mls/hr IV Q1H LAYO Stop: 11/04/19 23:44 Last Admin: 11/04/19 22:16 Dose: 100 mls/hr Documented by: [id number] Discontinued Medications Acetaminophen (Tylenol) 1,000 mg PO NOW STA Stop: 11/04/19 20:39 Last Admin: 11/04/19 21:08 Dose: 1,000 mg Documented by: [id number] Sodium Chloride (Nss) 500 mls @ 999 mls/hr IV .Q31M ONE Stop: 11/04/19 21:08 Last Infusion: 11/04/19 21:38 Dose: 0 mls/hr Documented by: [id number] Admin: 11/04/19 21:07 Dose: 999 mls/hr Documented by: [id number] Imaging Data Radiologist's Impression: XR chest 1V portable CLINICAL HISTORY: SEPSIS dyspnea COMPARISON STUDY: 11/02/2019 FINDINGS: Mild stable cardiomegaly. Slight increase in density left lung base. Lungs otherwise appear clear. IMPRESSION: 1. Mild stable cardiomegaly. 2. Atelectasis versus minimal infiltrate left base. ACT 112: Negative or not required by law. The above report was generated using voice recognition software. It may contain grammatical, syntax or spelling errors. Electronically signed by: [place] M.D. 11/04/2019 8:49 PM Dictated: 11/04/192047 Transcribed: 11/04/192047 CT abd pelvis wo con CT DOSE: 1523.97 mGy.cm HISTORY: Fever fever TECHNIQUE: Multiaxial CT images of the abdomen and pelvis were performed without contrast. A dose lowering technique was utilized adhering to the principles of ALARA. COMPARISON STUDY: None. FINDINGS: Lung bases are clear. Liver spleen and pancreas are unremarkable. Several gallstones are present within the gallbladder lumen. Possible small stones within the cystic duct. No evidence for dilatation of the biliary ductal system. Nonobstructive bowel pattern. No evidence for abscess or collection. The bladder is midline. IMPRESSION: 1. Gallstones as well as several small stones in the region of the cystic duct. 2. Study of the abdomen and pelvis is otherwise negative. ACT 112: Negative or not required by law. The above report was generated using voice recognition software. It may contain grammatical, syntax or spelling errors. Electronically signed by: [place] M.D. 11/04/2019 10:21 PM Dictated: 11/04/192217 Transcribed: 11/04/192217 Blood Pressure Blood Pressure Findings: Normal blood pressure Discharge Plan Visit Data Chief Complaint: Weakness Stated Complaint: weakness ED Provider: Bang Martins Discharge Problem: Pneumonia, Fever, Gall stones, Confusion Patient Disposition: Being Evaluated by Hospitalist Condition: Good Forms Stand Alone Forms: My [facility] Prescriptions Prescriptions: No Action thiamine HCl (vitamin B1) [Vitamin B-1] 50 mg tablet 50 mg PO QAM RF: 0 Lantus U-100 Insulin 100 unit/mL solution 28 units subcut QAM RF: 0 Caltrate 600-D Plus Minerals 600 mg calcium- 800 unit-50 mg tablet 1 tab PO BID RF: 0 latanoprost [Xalatan] 0.005 % Drops 1 drp OPB HS RF: 0 trazodone 50 mg Tablet 50 mg PO HS RF: 0 levothyroxine 88 mcg Tablet 88 mcg PO QAM RF: 0 simvastatin 20 mg Tablet 20 mg PO HS RF: 0 folic acid 1 mg Tablet 1 mg PO QAM RF: 0 escitalopram oxalate 10 mg Tablet 10 mg PO QAM RF: 0 acetaminophen [Tylenol Extra Strength] 500 mg tablet 500 mg PO TID RF: 0 Eliquis 2.5 mg Tablet 2.5 mg PO BID RF: 0 ipratropium-albuterol 0.5 mg-3 mg(2.5 mg base)/3 mL Solution For Nebulization 3 ml INHALATION TID RF: 0 Artificial Tears (cmc) 1 % Drops 1 drp OPB QID RF: 0 buspirone 30 mg tablet 30 mg PO BID RF: 0 insulin lispro [Humalog U-100 Insulin] 100 unit/mL solution 1 sliding scale dose subcut AC RF: 0 cetirizine 10 mg Tablet 5 mg PO DAILY RF: 0 diphenhydramine HCl 25 mg Tablet 25 mg PO Q6H PRN (Reason: Itching) RF: 0 benzonatate [Tessalon Perles] 100 mg capsule 100 mg PO TID PRN (Reason: Cough) RF: 0 nitrofurantoin macrocrystal 100 mg capsule 100 mg PO BID 5 Days Qty: 10 RF: 0 Referrals Referrals: Eve Weaver DO [Primary Care Provider] -
[2019-11-04 21:19] LABS: Basophils # (auto) 0.01 K/uL (0-0.2); Basophils % (auto) 0.1 %; Eosinophils # (auto) 0.31 K/uL (0-0.5); Eosinophils % (auto) 3.2 %; Hematocrit (blood only) 37.1 % (37-47); Hemoglobin 11.6 g/dL (12.0-16.0); Immature Granulocytes # (auto) 0.06 K/uL (0.00-0.02); Immature Granulocytes % (auto) 0.6 %; Lymphocytes # (auto) 0.16 K/uL (1.2-3.4); Lymphocytes % (auto) 1.6 %; Mean Corpuscular Hemoglobin 28.4 pg (25-34); Mean Corpuscular Hgb Conc 31.3 g/dL (32-36); Mean Corpuscular Volume 90.9 fL (80-100); Monocytes # (auto) 0.54 K/uL (0.11-0.59); Monocytes % (auto) 5.5 %; Neutrophils # (auto) 8.75 K/uL (1.4-6.5); Platelet Count 184 K/uL (130-400); RDW Coefficient of Variation 14.3 % (11.5-14.5); RDW Standard Deviation 47.4 fL (36.4-46.3); Red Blood Count 4.08 M/uL (4.2-5.4); White Blood Count 9.83 K/uL (4.8-10.8)
[2019-11-04 21:28] LABS: INR 1.1 (0.9-1.1); Partial Thromboplastin Ratio 0.9; Partial Thromboplastin Time 25.1 Seconds (21.0-31.0); Prothrombin Time 11.8 Seconds (9.0-12.0)
[2019-11-04 21:35] LABS: Alanine Aminotransferase 18 U/L (12-78); Albumin Level 3.1 gm/dl (3.4-5.0); Aspartate Aminotransferase 15 U/L (15-37); BUN Creatinine Ratio 10.1 (10-20); Blood Urea Nitrogen 16 mg/dl (7-18); Calcium 8.8 mg/dl (8.5-10.1); Carbon Dioxide 31 mmol/L (21-32); Chloride 105 mmol/L (98-107); Est GFR (African American) 33.2; Est GFR (Non-African American) 28.6; Glucose 192 mg/dl (70-99); Magnesium 1.5 mg/dl (1.8-2.4); Potassium 3.9 mmol/L (3.5-5.1); Sodium 140 mmol/L (136-145)
[2019-11-04 21:40] LABS: Albumin Globulin Ratio 0.9 (0.9-2); Alkaline Phosphatase 63 U/L (45-117); Bilirubin,Total 0.4 mg/dl (0.2-1); Globulin 3.3 gm/dl (2.5-4.0); Total Protein 6.4 gm/dl (6.4-8.2); Troponin I < 0.015 ng/ml (0-0.045)
[2019-11-04 21:42] LABS: Appearance Urine Clear (Clear); Bacteria Urine Automated Negative (Negative); Bilirubin Urine Negative (Negative); Blood Urine Negative (Negative); Color Urine Yellow; Glucose Urine UA Trace (Negative); Ketones Urine Trace (Negative); Leukocyte Esterase Urine Negative (Negative); Nitrite Urine Negative (Negative); Protein Urine 1+ (Negative); RBC Urine Automated 0-4 /hpf (0-4); Specific Gravity Urine 1.023 (1.000-1.030); Urobilinogen Urine Negative (Negative)
[2019-11-04] MEDS: MAGNESIUM SULFATE / D5W 1 GM/100 ML BAG IV SCH ×2 (22:16→23:18)
--- NOTE | 2019-11-04 22:22 | CT Scan Report ---
CT abd pelvis wo con CT DOSE: 1523.97 mGy.cm HISTORY: Fever fever TECHNIQUE: Multiaxial CT images of the abdomen and pelvis were performed without contrast. A dose lo wering technique was utilized adhering to the principles of ALARA. COMPARISON STUDY: None. FINDINGS: Lung bases are clear. Liver spleen and pancreas are unremarkable. Several gallstones are present within the gallbladder lumen. Possible small stones within the cystic duct. No evidence for dilatation of the biliary ductal system. Nonobstructive bowel pattern. No evidence for abscess or collection. The bladder is midline. IMPRESSION: 1. Gallstones as well as several small stones in the region of the cystic duct. 2. Study of the abdomen and pelvis is otherwise negative. ACT 112: Negative or not required by law. The above report was generated using voice recognition software. It may contain grammatical, syntax or spelling errors. Electronically signed by: [place] M.D. 11/04/2019 10:21 PM
--- NOTE | 2019-11-05 00:29 | History & Physical Report ---
Date of Service November 05, 2019 Assessment & Plan (1) Fever: Patient febrile, tachycardic and tachypneic on arrival, 90% on room air, improved with 2L NC. Non-toxic in appearance. WBCs are within normal range - differential with increased neutrophils and bands and decreased lymphocytes. Procalcitonin has increased from <0.05 on 11/01/19 to 0.3 today, UA does not suggest infection, LFTs are within normal limits - no obstructive pattern. CXR mentions left lung base density, slightly increased from before. Patient resides in a [facility] - Uncertain if there have been Covid-19 cases there. Suspect recurrence of bacterial PNA as source of fever/cough/hypoxia. Possible abdominal source with tenderness and gallstones present, although imaging and labs do not support cholangitis/cholecystitis. Possible Covid-19 infection although doubtful -Admit to medical floor -Follow cultures sent from ER -Covid-19 test. Maintain Airborne and Contact precautions until results return -Check LDH, CRP, Ferritin and D-dimer -Check sputum culture -Repeat LFTs in AM -Zosyn 3.375gm IV q 8 hours for possible PNA. Negative MRSA Nasal swab on last visit Present on Admission?: Yes (2) Gall stones: No laboratory or imaging evidence of acute cholecystitis. Patient's abdomen is diffusely tender rather than RUQ -Repeat LFTs -Zosyn as above Present on Admission?: Yes (3) Confusion: Most likely acute delirium in setting of infection. Patient became combative with staff during her last hospital stay and required a 1:1 sitter and Haldol on several occasions. At present she is calm, no agitation -Frequent orientation -Avoid delirium inducing agents, avoid steroids -Low threshold for 1:1 Present on Admission?: Yes (4) Type 2 diabetes mellitus: Blood sugar elevated at 192. [id number]=9.8% during recent admission -Lantus 10u BID, ISS, adjust as needed for target blood sugar 100 - 140 Present on Admission?: Yes (5) Anxiety and depression: Chronic -Continue Buspirone 30mg po BID -Continue Trazodone and Escitalopram Present on Admission?: Yes (6) Dementia: Chronic, with high risk for hospital acquired delirium -Frequent orientation Present on Admission?: Yes (7) Asthma: Chronic -Continue Cetirizine -Continue Ipratropium/Albuterol Present on Admission?: Yes (8) Hypertension: Blood pressure stable. Losartan DCd during last hospital stay -Continue to monitor Present on Admission?: Yes (9) CKD (chronic kidney disease), stage III: Baseline Cr of 1.4, numbers have improved from previous hospitalization -Continue to monitor BUN/Cr/electrolytes -Avoid nephrotoxic agents Present on Admission?: Yes (10) History of pulmonary embolism: History of DVT/PE in 2015, anticoagulated with Eliquis -Continue Eliquis Present on Admission?: Yes (11) Dyslipidemia: Chronic. Stable -Continue Simvastatin Present on Admission?: Yes (12) Hypothyroidism: Chronic. Stable TSH -Continue home synthroid F/E/N - IVF, montior electorlytes, CC diet Ppx - Eliquis Code- Full Dispo - Observation to [facility], Covid-19 rule out, tx for presumed PNA Admission and Anticipated Discharge Date Admission Date: 11/05/19 Anticipated date of discharge: 11/07/19 History of Present Illness Chief Complaint: Fever Primary Care Provider: DO Dana Ribeiro Jordon is an 84yo C female with history of DM/HTN/CKD/DVT on Eliquis anticoagulation. She was recently admitted to [facility] on 10/25/19 with concern for LLL PNA, UTI and increased weakness/fall and confusion. She was treated with antibiotics (Ceftriaxone, Azithromycin, Unasyn and Zosyn) for PNA. She had a negative Biofire panel and Covid-19 testing. She was discharged to [facility] on 11/02/19 in stable condition. Her daughter states that she has been improving and was getting back to normal, possibly slightly more lethargic than usual. This evening the patient ate dinner with no issue, however, later in the evening she was found wandering around the halls in the long term. She was febrile to 102, hypoxic with saturations of high 80%s on room air. Her daughter reports that she has been coughing slightly and patient complaining of mild SOB, weakness and fatigue. She offers no additioanal complaints. ER Course: Acetaminophen, Magnesium 1gm, NSS Allergies Allergy/AdvReac Type Severity Reaction Status Date / Time doxycycline Allergy Mild Rash Verified 11/04/19 22:15 oxybutynin Allergy Mild Rash Verified 11/04/19 22:15 codeine Allergy Unknown Unknown Verified 11/04/19 22:15 fluticasone Allergy Unknown Unknown Verified 11/04/19 22:15 salmeterol Allergy Unknown Unknown Verified 11/04/19 22:15 Sulfa (Sulfonamide Allergy Unknown Unknown Verified 11/04/19 22:15 Antibiotics) troleandomycin Allergy Unknown Unknown Verified 11/04/19 22:15 Macrolide Antibiotics Allergy Unknown Verified 11/04/19 22:15 milk protein extract Allergy Unknown Uncoded 11/04/19 22:15 Home Medications Home Medications Medication Instructions Recorded Confirmed Type escitalopram oxalate 10 mg PO QAM 08/04/18 11/04/19 History folic acid 1 mg PO QAM 08/04/18 11/04/19 History latanoprost [Xalatan] 1 drp OPB HS 08/04/18 11/04/19 History levothyroxine 88 mcg PO QAM 08/04/18 11/04/19 History simvastatin 20 mg PO HS 08/04/18 11/04/19 History trazodone 50 mg PO HS 08/04/18 11/04/19 History buspirone 30 mg PO BID 12/12/18 11/04/19 History acetaminophen 500 mg tablet 500 mg PO TID 12/16/18 11/04/19 History calcium 600 mg-D3 800 unit-mag11 1 tab PO BID tab 02/10/19 11/04/19 History 50 by-hzjp-kncpyy-cristofer-s.borat tablet insulin lispro 100 unit/mL 1 sliding scale dose SUBCUT AC ml 02/10/19 11/04/19 History subcutaneous solution Eliquis 2.5 mg PO BID 03/13/19 11/04/19 History insulin glargine 100 unit/mL 28 units SUBCUT QAM ml 03/23/19 11/04/19 History subcutaneous solution Artificial Tears (cmc) 1 drp OPB QID 06/04/19 11/04/19 History ipratropium-albuterol 3 ml INHALATION TID 06/04/19 11/04/19 History thiamine HCl (vitamin B1) 50 mg 50 mg PO QAM 08/03/19 11/04/19 History tablet benzonatate [Tessalon Perles] 100 mg PO TID PRN 10/25/19 11/04/19 History cetirizine 5 mg PO DAILY 10/25/19 11/04/19 History diphenhydramine HCl 25 mg PO Q6H PRN 10/25/19 11/04/19 History nitrofurantoin macrocrystal 100 mg PO BID 5 Days #10 cap 11/02/19 11/04/19 Rx Past Med/Surg History Medical History Allergic rhinitis Anxiety and depression Arthritis Asthma Cardiomyopathy (Chronic) CKD (chronic kidney disease), stage III Dementia Dyslipidemia Endometrioid adenocarcinoma of uterus (Chronic) History of DVT (deep vein thrombosis) (2014) "LLE 2014" History of pulmonary embolism (2014) "2014" Hypertension Hypothyroidism Hypothyroidism Type 2 diabetes mellitus (Chronic) Urinary incontinence Vertigo Vitamin D deficiency Surgical History H/O cataract extraction History of robot-assisted laparoscopic hysterectomy (Resolved 10/2018) 11/10/18 - with BSO with B/L SLN Biopsy and Right pelvic lymph node dissection and cystoscopy (Dr. Buffy Mayo in [place]) S/P appendectomy as a child S/P foot surgery (2004) S/P tonsillectomy and adenoidectomy Family History Mother , Passed in 80s/90's of old age No problems noted. Father , Passed in 70's of black lung complications ([place]) Lung disease Sister , Passed in 80's of unknown No problems noted. Sister , Passed in 60's of unknown No problems noted. Brother , Passed in 60's of unknown (alcoholic) Hypertension Brother , Passed in late 70's of unknown Lung disease Daughter No problems noted. Son No problems noted. Son No problems noted. Son No problems noted. 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 Feels Safe at Home: Yes Smoking Status: Unknown if ever smoked Hx Alcohol Use: No Hx Substance Use: No Childhood Exposure to Second-Hand Smoke: No Diet Comment: well balanced diet caffeine: No during the past year weight has: increased > 10 lbs Dental Care, Regularly: No Physical Activity Frequency: Does not Exercise Seatbelt Use: always Sunscreen Use: No Review of Systems Review of Systems: All systems reviewed & are unremarkable except as noted in HPI & below Physical Exam Physical Exam: General: patient resting comfortably, NAD, non-toxic in ines earance, AA&O to self, patient able to answer most questions appropriately although responds slowly, and follows commands, however she is distractible and goes off on tangents Skin: warm, dry, intact, no rashes or lesions HEENT: NC/AT, PERRL, EOMI, anicteric sclera, conjunctiva without injection, external ear normal to inspection and nontender, nares patent, moist mucus membranes, dentition intact, no oropharyngeal lesions, neck supple, trachea midline, no LAD, no thyromegaly, no JVD Heart: +S1/S2, regular, no m/r/g Lungs: equal air entry bilaterally, no rales/rhonchi/wheezes Abd: +BS, soft, ND, mildly tender with deep palpation, no rebound/guarding/peritoneal signs, no masses/organomegaly/ascites Ext: warm, 2+ pulses in UE/LE bilaterally, no clubbing/cyanosis or edema Neuro: nonfocal, patient AA&O x 1, speech intact, no facial droop, moving all extremities on command with equal strength 5/5 Results & Data Results & Data ([facility]) Vital Signs (Past 12 Hours) Vital Signs Temp Pulse Pulse Resp BP BP Pulse Ox 11/04/19 23:30 94 H 28 H 119/51 L 98 11/04/19 23:15 96 H 21 123/67 98 11/04/19 23:00 78 23 129/59 L 99 11/04/19 22:45 78 26 H 114/73 98 11/04/19 22:18 37 C 11/04/19 22:14 98 H 20 133/70 99 11/04/19 21:45 86 26 H 143/72 H 98 11/04/19 21:10 105 H 28 H 120/69 98 11/04/19 20:41 38.7 C H 105 H 24 130/92 90 11/04/19 20:40 90 Laboratory Results Lab Results 11/04/19 11/04/19 11/04/19 Range/Units 21:00 21:00 21:00 WBC 9.83 (4.8-10.8) K/uL RBC 4.08 L (4.2-5.4) M/uL Hgb 11.6 L (12.0-16.0) g/dL Hct 37.1 (37-47) % MCV 90.9 (80-100) fL MCH 28.4 (25-34) pg MCHC 31.3 L (32-36) g/dL RDW Std Deviation 47.4 H (36.4-46.3) fL RDW Coeff of Beverley 14.3 (11.5-14.5) % Plt Count 184 (130-400) K/uL MPV 10.0 (7.4-10.4) fL Immature Gran % (Auto) 0.6 % Neut % (Auto) 89.0 % Lymph % (Auto) 1.6 % [place] % (Auto) 5.5 % Eos % (Auto) 3.2 % Baso % (Auto) 0.1 % Immature Gran # (Auto) 0.06 H (0.00-0.02) K/uL Neut # (Auto) 8.75 H (1.4-6.5) K/uL Lymph # (Auto) 0.16 L (1.2-3.4) K/uL Sutton # (Auto) 0.54 (0.11-0.59) K/uL Eos # (Auto) 0.31 (0-0.5) K/uL Baso # (Auto) 0.01 (0-0.2) K/uL PT 11.8 (9.0-12.0) Seconds INR 1.1 (0.9-1.1) APTT 25.1 (21.0-31.0) Seconds PTT Ratio 0.9 Sodium (136-145) mmol/L Potassium (3.5-5.1) mmol/L Chloride (98-107) mmol/L Carbon Dioxide (21-32) mmol/L Anion Gap (3-11) BUN (7-18) mg/dl Creatinine (0.6-1.2) mg/dl Est Cr Clr Drug Dosing Est GFR ( Amer) Est GFR (Non-Af Amer) BUN/Creatinine Ratio (10-20) Glucose (70-99) mg/dl Lactate (0.4-2.0) mmol/L Calcium (8.5-10.1) mg/dl Magnesium (1.8-2.4) mg/dl Total Bilirubin (0.2-1) mg/dl AST (15-37) U/L ALT (12-78) U/L Alkaline Phosphatase (45-117) U/L Troponin I (0-0.045) ng/ml Total Protein (6.4-8.2) gm/dl Albumin (3.4-5.0) gm/dl Globulin (2.5-4.0) gm/dl Albumin/Globulin Ratio (0.9-2) Procalcitonin 0.20 (0-0.5) ng/ml Urine Color Urine Appearance (Clear) Urine pH (4.5-7.5) Ur Specific [place] (1.000-1.030) Urine Protein (Negative) Urine Glucose (UA) (Negative) Urine Ketones (Negative) Urine Blood (Negative) Urine Nitrite (Negative) Urine Bilirubin (Negative) Urine Urobilinogen (Negative) Ur Leukocyte Esterase (Negative) Urine WBC (Auto) (0-5) /hpf Urine RBC (Auto) (0-4) /hpf U Hyaline Cast (Auto) (0-5) /lpf U Epithel Cells (Auto) (0-5) /lpf Urine Bacteria (Auto) (Negative) 11/04/19 11/04/19 11/04/19 Range/Units 21:00 21:16 21:31 WBC (4.8-10.8) K/uL RBC (4.2-5.4) M/uL Hgb (12.0-16.0) g/dL Hct (37-47) % MCV (80-100) fL MCH (25-34) pg MCHC (32-36) g/dL RDW Std Deviation (36.4-46.3) fL RDW Coeff of Beverley (11.5-14.5) % Plt Count (130-400) K/uL MPV (7.4-10.4) fL Immature Gran % (Auto) % Neut % (Auto) % Lymph % (Auto) % [place] % (Auto) % Eos % (Auto) % Baso % (Auto) % Immature Gran # (Auto) (0.00-0.02) K/uL Neut # (Auto) (1.4-6.5) K/uL Lymph # (Auto) (1.2-3.4) K/uL [place] # (Auto) (0.11-0.59) K/uL Eos # (Auto) (0-0.5) K/uL Baso # (Auto) (0-0.2) K/uL PT (9.0-12.0) Seconds INR (0.9-1.1) APTT (21.0-31.0) Seconds PTT Ratio Sodium 140 (136-145) mmol/L Potassium 3.9 (3.5-5.1) mmol/L Chloride 105 (98-107) mmol/L Carbon Dioxide 31 (21-32) mmol/L Anion Gap 4.0 (3-11) BUN 16 (7-18) mg/dl Creatinine 1.62 H (0.6-1.2) mg/dl Est Cr Clr Drug Dosing Not Reportable Est GFR ( Amer) 33.2 Est GFR (Non-Af Amer) 28.6 BUN/Creatinine Ratio 10.1 (10-20) Glucose 192 H (70-99) mg/dl Lactate 1.6 (0.4-2.0) mmol/L Calcium 8.8 (8.5-10.1) mg/dl Magnesium 1.5 L (1.8-2.4) mg/dl Total Bilirubin 0.4 (0.2-1) mg/dl AST 15 (15-37) U/L ALT 18 (12-78) U/L Alkaline Phosphatase 63 (45-117) U/L Troponin I < 0.015 (0-0.045) ng/ml Total Protein 6.4 (6.4-8.2) gm/dl Albumin 3.1 L (3.4-5.0) gm/dl Globulin 3.3 (2.5-4.0) gm/dl Albumin/Globulin Ratio 0.9 (0.9-2) Procalcitonin (0-0.5) ng/ml Urine Color Yellow Urine Appearance Clear (Clear) Urine pH 6.0 (4.5-7.5) Ur Specific [place] 1.023 (1.000-1.030) Urine Protein 1+ H (Negative) Urine Glucose (UA) Trace H (Negative) Urine Ketones Trace H (Negative) Urine Blood Negative (Negative) Urine Nitrite Negative (Negative) Urine Bilirubin Negative (Negative) Urine Urobilinogen Negative (Negative) Ur Leukocyte Esterase Negative (Negative) Urine WBC (Auto) 1-5 (0-5) /hpf Urine RBC (Auto) 0-4 (0-4) /hpf U Hyaline Cast (Auto) 1-5 (0-5) /lpf U Epithel Cells (Auto) 10-20 H (0-5) /lpf Urine Bacteria (Auto) Negative (Negative) Diagnostic Findings CT abd pelvis wo con CT DOSE: 1523.97 mGy.cm HISTORY: Fever fever TECHNIQUE: Multiaxial CT images of the abdomen and pelvis were performed without contrast. A dose lowering technique was utilized adhering to the principles of ALARA. COMPARISON STUDY: None. FINDINGS: Lung bases are clear. Liver spleen and pancreas are unremarkable. Several gallstones are present within the gallbladder lumen. Possible small stones within the cystic duct. No evidence for dilatation of the biliary ductal system. Nonobstructive bowel pattern. No evidence for abscess or collection. The bladder is midline. IMPRESSION: 1. Gallstones as well as several small stones in the region of the cystic duct. 2. Study of the abdomen and pelvis is otherwise negative. ACT 112: Negative or not required by law. The above report was generated using voice recognition software. It may contain grammatical, syntax or spelling errors. Electronically signed by: [place] M.D. 11/04/2019 10:21 PM Dictated: 11/04/192217 Transcribed: 11/04/192217 XR chest 1V portable CLINICAL HISTORY: SEPSIS dyspnea COMPARISON STUDY: 11/02/2019 FINDINGS: Mild stable cardiomegaly. Slight increase in density left lung base. Lungs otherwise appear clear. IMPRESSION: 1. Mild stable cardiomegaly. 2. Atelectasis versus minimal infiltrate left base. ACT 112: Negative or not required by law. The above report was generated using voice recognition software. It may contain grammatical, syntax or spelling errors. Electronically signed by: [place] M.D. 11/04/2019 8:49 PM Dictated: 11/04/192047 Transcribed: 11/04/192047 Code Status & VTE Plan Code Status FULL VTE Prophylaxis Plan VTE Prophylaxis will be ordered: Yes PG Care Time/CCT Total # of Minutes Spent Total Time Spent with Patient: Total time spent is greater than 50% in coordination of care (as documented) at patient's floor/unit and/or counseling patient: Coding Level of Care Code 71807 OBS Care - Level 3 Diagnoses Fever R50.9 Fever type: unspecified Gall stones K80.20 Confusion R41.0 Type 2 diabetes mellitus E11.9; Z79.4 Diabetes mellitus terminal carman insulin use: with terminal carman use Diabetes mellitus complication status: without complication Anxiety and depression F41.9; F32.9 Dementia F03.91 Dementia type: unspecified type Dementia behavioral disturbance: with behavioral disturbance Asthma J45.909 Asthma severity: unspecified severity Asthma persistence: unspecified Asthma complication type: uncomplicated Hypertension I10 Hypertension type: essential hypertension CKD (chronic kidney disease), stage III N18.3 History of pulmonary embolism Z86.711 Dyslipidemia E78.5 Hypothyroidism E03.9 Hypothyroidism type: unspecified (1) Fever Fever type: unspecified Qualified Code(s): R50.9 - Fever, unspecified (2) Type 2 diabetes mellitus Diabetes mellitus alf insulin use: with terminal carman use Diabetes mellitus complication status: without complication Qualified Code(s): E11.9 - Type 2 diabetes mellitus without complications; Z79.4 - exterminator helper (current) use of insulin (3) Dementia Dementia type: unspecified type Dementia behavioral disturbance: with behavioral disturbance Qualified Code(s): F03.91 - Unspecified dementia with behavioral disturbance (4) Asthma Asthma severity: unspecified severity Asthma persistence: unspecified Asthma complication type: uncomplicated Qualified Code(s): J45.909 - Unspecified asthma, uncomplicated (5) Hypertension Hypertension type: essential hypertension Qualified Code(s): I10 - Essential (primary) hypertension (6) Hypothyroidism Hypothyroidism type: unspecified Qualified Code(s): E03.9 - Hypothyroidism, unspecified
[2019-11-05] MEDS ORDERED: CARBOHYDRATES FOR HYPOGLYCEMIA PO PRN (02:00)
[2019-11-05] MEDS ORDERED: PIPERACILL/TAZOBAC CONSULT ACTIVE PRN (02:00)
[2019-11-05] MEDS ORDERED: GLUCOSE 10 TABS/TUBE PO PRN (02:00)
[2019-11-05] MEDS ORDERED: GLUCOSE 40% GEL 15 GM TUBE PO PRN (02:00)
[2019-11-05] MEDS ORDERED: BENZONATATE 100 MG CAPSULE PO PRN (02:00)
[2019-11-05] MEDS ORDERED: GLUCAGON FOR INJ 1 MG VIAL SQ PRN (02:00)
[2019-11-05] MEDS ORDERED: DEXTROSE 50% 50 ML SYRINGE IV PRN (02:00)
[2019-11-05] MEDS ORDERED: PIPERACILLIN/TAZOBACTAM 4.5 GM in DEXTROSE 5% 100 ML IV ONE (02:30)
[2019-11-05] MEDS ORDERED: SODIUM CHLORIDE 0.9% 1000ML 1,000 ML IV SCH (02:30)
[2019-11-05] MEDS ORDERED: LEVOTHYROXINE SODIUM 88 MCG TABLET PO SCH (06:30)
[2019-11-05 06:48] LABS: Basophils # (auto) 0.01 K/uL (0-0.2); Basophils % (auto) 0.1 %; Eosinophils # (auto) 0.14 K/uL (0-0.5); Hematocrit (blood only) 34.7 % (37-47); Hemoglobin 10.8 g/dL (12.0-16.0); Immature Granulocytes # (auto) 0.02 K/uL (0.00-0.02); Immature Granulocytes % (auto) 0.3 %; Lymphocytes # (auto) 0.32 K/uL (1.2-3.4); Lymphocytes % (auto) 4.6 %; Mean Corpuscular Hemoglobin 28.1 pg (25-34); Mean Corpuscular Hgb Conc 31.1 g/dL (32-36); Mean Corpuscular Volume 90.1 fL (80-100); Mean Platelet Volume 9.5 fL (7.4-10.4); Monocytes % (auto) 4.3 %; Neutrophils # (auto) 6.14 K/uL (1.4-6.5); Neutrophils % (auto) 88.7 %; Platelet Count 159 K/uL (130-400); RDW Coefficient of Variation 14.4 % (11.5-14.5); RDW Standard Deviation 47.3 fL (36.4-46.3); Red Blood Count 3.85 M/uL (4.2-5.4); White Blood Count 6.93 K/uL (4.8-10.8)
[2019-11-05 06:59] LABS: D Dimer 670 ug/L FEU (0-500)
[2019-11-05 07:13] LABS: Albumin Level 2.8 gm/dl (3.4-5.0); BUN Creatinine Ratio 10.4 (10-20); Bilirubin Direct 0.2 mg/dl (0-0.2); C Reactive Protein 6.69 mg/dl (0-0.29); Calcium 8.6 mg/dl (8.5-10.1); Creatinine Clr Calc Pharmacy 31.8 ml/min; Est GFR (African American) 34.8; Magnesium 2.1 mg/dl (1.8-2.4); Potassium 3.7 mmol/L (3.5-5.1)
[2019-11-05] MEDS: ALBUT/IPRATROP 3MG/0.5MG NEB 3 ML VIAL INH SCH ×3 (07:13→19:04)
[2019-11-05 07:16] LABS: Bilirubin,Total 0.7 mg/dl (0.2-1); Ferritin 31.9 ng/ml (8-388); Phosphorus 2.6 mg/dl (2.5-4.9)
--- NOTE | 2019-11-05 08:11 | Hospitalist Progress Note ---
Date of Service November 05, 2019 Assessment & Plan (1) Fever: Patient febrile, tachycardic and tachypneic on arrival, 90% on room air, improved with 2L NC. Non-toxic in appearance. WBCs are within normal range - differential with increased neutrophils and bands and decreased lymphocytes. Procalcitonin has increased from <0.05 on 11/01/19 to 0.3 today, UA does not suggest infection, LFTs are within normal limits - no obstructive pattern. CXR mentions left lung base density, slightly increased from before. Patient resides in a [facility] - Uncertain if there have been Covid-19 cases there. Suspect recurrence of bacterial PNA as source of fever/cough/hypoxia. Possible abdominal source has been made less likely by imaging and by normalization of LFTs although. Patient is pending results of COVID testing -Covid-19 test. Maintain Airborne and Contact precautions until results return -Check LDH(normal), CRP( elevated), Ferritin(normal) and D-dimer(elevated), lymphocyte count(low) -Check sputum culture -Repeat LFTs in AM are normal which goes against this being cholecystitis or cholangitis -Zosyn 3.375gm IV q 8 hours for possible gram-negative PNA. Negative MRSA Nasal swab on last visit Ct abd/pelvis IMPRESSION: 1. Gallstones as well as several small stones in the region of the cystic duct. 2. Study of the abdomen and pelvis is otherwise negative. (2) Gall stones: No laboratory or imaging evidence of acute cholecystitis. Patient's abdomen is diffusely tender rather than RUQ -Repeat LFTs are continuing normal on 11/04 making cholecystitis or cholangitis much less likely -Zosyn as above (3) Confusion: Most likely acute delirium in setting of infection. Patient became combative with staff during her last hospital stay and required a 1:1 sitter and Haldol on several occasions. At present she is calm, no agitation -Frequent orientation -Avoid delirium inducing agents, avoid steroids -Low threshold for 1:1 (4) Type 2 diabetes mellitus: Blood sugar elevated at 192. RtpL1Q=6.8% during recent admission -Lantus 10u BID, ISS, adjust as needed for target blood sugar 100 - 140 (5) Anxiety and depression: Chronic -Continue Buspirone 30mg po BID -Continue Trazodone and Escitalopram (6) Dementia: Chronic, with high risk for hospital acquired delirium -Frequent orientation, isolation for COVID testing makes a chance of delirium increase (7) Asthma: Chronic -Continue Cetirizine -Continue Ipratropium/Albuterol (8) Hypertension: Blood pressure stable. Losartan DCd during last hospital stay -Continue to monitor (9) CKD (chronic kidney disease), stage III: Baseline Cr of 1.4, numbers have improved from previous hospitalization -Continue to monitor BUN/Cr/electrolytes -Avoid nephrotoxic agents (10) History of pulmonary embolism: History of DVT/PE in 2015, anticoagulated with Eliquis -Continue Eliquis (11) Dyslipidemia: Chronic. Stable -Continue Simvastatin (12) Hypothyroidism: Chronic. Stable TSH -Continue home synthroid F/E/N - IVF, montior electorlytes, CC diet Ppx - Eliquis Code- Full Dispo - Observation to [facility], Covid-19 rule out, tx for presumed PNA Admission and Anticipated Discharge Date Admission Date: November 05, 2019 Subjective Patient is slightly confused about why she is actually here she apparently is feeling better she still having productive cough. COVID testing is currently pending. She does not have her eyeglasses from her nursing facility and they are hopefully on the way with her family otherwise she is got no new complaints or problems Review of Systems Review of Systems: Mild distress and fatigue no headache, patient complains of blurry vision without her khang glasses no speech or swallowing issues no chest pain, pressure or palpitations no shortness of breath, still with mild productive cough but she is having no wheezes no abdominal pain, nausea or vomiting, diarrhea or constipation no dysuria, hematuria or frequency no focal joint pain or swelling no back pain, CVA tenderness or radicular pain no bruising, bleeding or rashes no focal signs of weakness or numbness or altered sensation no complaints or anxiety or depression Physical Exam Physical Exam: The patient appeared well nourished and normally developed. Vital signs as documented. Head exam is normocephalic atraumatic no scleral icterus Neck is without JVD, thyromegaly, or carotid bruits. Lungs are coarse bilaterally with no focal air loss or change in breath sounds Cardiac exam, Rhythm is regular.. Systolic ejection murmurs heard Abdominal exam reveals normal bowel sounds, soft non tender, no masses Extremities are nonedematous and both pedal pulses are normal. Neurologic exam is alert and oriented x2, no focal loss of strength or sensation Skin is without bruises or rashes Psychologically is with concerned for dementia Results & Data Results & Data ([facility]) Vital Signs (Past 12 Hours) Vital Signs Temp Pulse Pulse Resp BP BP Pulse Ox 11/05/19 07:56 98.6 F 80 18 140/61 94 11/05/19 07:15 95 H 18 93 11/05/19 02:10 98.1 F 100 H 20 122/70 94 11/05/19 01:15 75 25 H 113/57 L 98 11/05/19 01:00 92 H 22 113/57 L 98 11/05/19 00:45 99.0 F 95 H 25 H 118/53 L 98 11/05/19 00:30 94 H 21 119/73 98 11/05/19 00:15 91 H 25 H 106/64 98 11/05/19 00:00 76 22 112/51 L 98 11/04/19 23:45 96 H 27 H 115/48 L 98 11/04/19 23:30 95 H 94 H 30 H 119/51 L 119/51 L 99 11/04/19 23:15 96 H 21 123/67 98 11/04/19 23:00 78 23 129/59 L 99 11/04/19 22:45 78 26 H 114/73 98 11/04/19 22:18 98.6 F 11/04/19 22:14 98 H 20 133/70 99 11/04/19 21:45 86 26 H 143/72 H 98 11/04/19 21:10 105 H 28 H 120/69 98 11/04/19 20:41 101.7 F H 105 H 24 130/92 90 11/04/19 20:40 90 PG Care Time/CCT Total # of Minutes Spent Total Time Spent with Patient: Total time spent is greater than 50% in coordination of care (as documented) at patient's floor/unit and/or counseling patient: Coding Level of Care Code 44447 Subseq Hosp Care Lvl 3 Diagnoses Fever R50.9 Fever type: unspecified Gall stones K80.20 Confusion R41.0 Type 2 diabetes mellitus E11.9; Z79.4 Diabetes mellitus complication status: without complication Diabetes mellitus lobsterman insulin use: with correction use Anxiety and depression F41.9; F32.9 Dementia F03.91 Dementia behavioral disturbance: with behavioral disturbance Dementia type: unspecified type Asthma J45.909 Asthma complication type: uncomplicated Asthma persistence: unspecified Asthma severity: unspecified severity Hypertension I10 Hypertension type: essential hypertension CKD (chronic kidney disease), stage III N18.3 History of pulmonary embolism Z86.711 Dyslipidemia E78.5 Hypothyroidism E03.9 Hypothyroidism type: unspecified (1) Fever Fever type: unspecified Qualified Code(s): R50.9 - Fever, unspecified (2) Type 2 diabetes mellitus Diabetes mellitus complication status: without complication Diabetes mellitus lobsterman insulin use: with lobsterman use Qualified Code(s): E11.9 - Type 2 diabetes mellitus without complications; Z79.4 - moth exterminator (current) use of insulin (3) Dementia Dementia behavioral disturbance: with behavioral disturbance Dementia type: unspecified type Qualified Code(s): F03.91 - Unspecified dementia with behavioral disturbance (4) Hypothyroidism Hypothyroidism type: unspecified Qualified Code(s): E03.9 - Hypothyroidism, unspecified (5) Hypertension Hypertension type: essential hypertension Qualified Code(s): I10 - Essential (primary) hypertension (6) Asthma Asthma complication type: uncomplicated Asthma persistence: unspecified Asthma severity: unspecified severity Qualified Code(s): J45.909 - Unspecified asthma, uncomplicated
[2019-11-05] MEDS: PIPERACILLIN/TAZOBACTAM 4.5 GM in DEXTROSE 5% 100 ML IV SCH ×3 (08:17→23:55)
[2019-11-05] MEDS: ARTIFICIAL TEARS OP SCH ×5 (08:29→20:42)
[2019-11-05] MEDS: INSULIN ASPART 100 UNITS/ML 3 ML PEN SC SCH ×4 (08:43→20:46)
[2019-11-05] MEDS ORDERED: ESCITALOPRAM OXALATE 10 MG TAB PO SCH (09:00)
[2019-11-05] MEDS ORDERED: APIXABAN 2.5 MG TAB PO SCH (09:00)
[2019-11-05] MEDS ORDERED: THIAMINE HCL 50 MG TABLET PO SCH (09:00)
[2019-11-05] MEDS ORDERED: CALCIUM 600MG + VIT D 400 IU TAB PO SCH (09:00)
[2019-11-05] MEDS ORDERED: INSULIN GLARGINE SOLOSTAR 100 UNITS/ML 3 ML PEN SC SCH (09:00)
[2019-11-05] MEDS ORDERED: BusPIRone 15 MG TAB PO SCH (09:00)
[2019-11-05] MEDS ORDERED: ACETAMINOPHEN 500 MG TAB PO SCH (09:00)
[2019-11-05] MEDS ORDERED: FOLIC ACID 1 MG TAB PO SCH (09:00)
[2019-11-05] MEDS ORDERED: CETIRIZINE HCL 10 MG TABLET PO SCH (09:00)
[2019-11-05] MEDS: ACETAMINOPHEN 500 MG TAB PO SCH ×2 (15:58→23:52)
[2019-11-05] MEDS: LATANOPROST 0.005% OP SOLN 2.5 ML BTL OPB SCH (20:43)
[2019-11-05] MEDS: BusPIRone 15 MG TAB PO SCH (20:44)
[2019-11-05] MEDS: SIMVASTATIN 20 MG TAB PO SCH (20:44)
[2019-11-05] MEDS: APIXABAN 2.5 MG TAB PO SCH (20:44)
[2019-11-05] MEDS: TRAZODONE HCL 50 MG TAB PO SCH (20:44)
[2019-11-05] MEDS: CALCIUM 600MG + VIT D 400 IU TAB PO SCH (20:45)
[2019-11-05] MEDS: INSULIN GLARGINE SOLOSTAR 100 UNITS/ML 3 ML PEN SC SCH (20:47)
[2019-11-05] MEDS ORDERED: SIMVASTATIN 20 MG TAB PO SCH (21:00)
[2019-11-05] MEDS ORDERED: LATANOPROST 0.005% OP SOLN 2.5 ML BTL OPB SCH (21:00)
[2019-11-05] MEDS ORDERED: TRAZODONE HCL 50 MG TAB PO SCH (21:00)
--- NOTE | 2019-11-05 21:54 | Electrocardiogram Report ---
Test Reason : Blood Pressure : / mmHG Vent. Rate : 113 BPM Atrial Rate : 113 BPM P-R Int : 174 ms QRS Dur : 082 ms QT Int : 342 ms P-R-T Axes : 058 -70 060 degrees QTc Int : 469 ms Sinus tachycardia Left axis deviation Abnormal ECG When compared with ECG of 28-OCT-2019 14:59, Vent. rate has increased BY 41 BPM Confirmed by Juan Manuel Asif ([id number]) on 11/05/2019 9:54:01 PM Referred By: REFERRED SELF Confirmed By:Juan Manuel Asif
[2019-11-06 06:20] LABS: Albumin Level 2.4 gm/dl (3.4-5.0); Bilirubin Direct 0.2 mg/dl (0-0.2); Calcium 8.5 mg/dl (8.5-10.1); Creatinine Clr Calc Pharmacy 30.7 ml/min; Est GFR (African American) 33.2; Est GFR (Non-African American) 28.6; Potassium 3.7 mmol/L (3.5-5.1)
[2019-11-06 06:23] LABS: Bilirubin,Total 0.5 mg/dl (0.2-1); Total Protein 5.7 gm/dl (6.4-8.2)
[2019-11-06] MEDS: ALBUT/IPRATROP 3MG/0.5MG NEB 3 ML VIAL INH SCH ×3 (06:56→18:48)
[2019-11-06] MEDS: CALCIUM 600MG + VIT D 400 IU TAB PO SCH ×2 (07:56→20:42)
[2019-11-06] MEDS: CETIRIZINE HCL 10 MG TABLET PO SCH (07:57)
[2019-11-06] MEDS: ACETAMINOPHEN 500 MG TAB PO SCH ×3 (07:58→23:06)
[2019-11-06] MEDS: APIXABAN 2.5 MG TAB PO SCH ×2 (07:59→20:42)
[2019-11-06] MEDS: THIAMINE HCL 50 MG TABLET PO SCH (07:59)
[2019-11-06] MEDS: FOLIC ACID 1 MG TAB PO SCH (07:59)
[2019-11-06] MEDS: LEVOTHYROXINE SODIUM 88 MCG TABLET PO SCH (08:00)
[2019-11-06] MEDS: ESCITALOPRAM OXALATE 10 MG TAB PO SCH (08:00)
[2019-11-06] MEDS: BusPIRone 15 MG TAB PO SCH ×2 (08:02→20:41)
[2019-11-06] MEDS: ARTIFICIAL TEARS OP SCH ×4 (08:02→20:41)
[2019-11-06] MEDS: INSULIN GLARGINE SOLOSTAR 100 UNITS/ML 3 ML PEN SC SCH ×2 (08:12→20:46)
[2019-11-06] MEDS: INSULIN ASPART 100 UNITS/ML 3 ML PEN SC SCH ×4 (08:45→20:44)
[2019-11-06] MEDS: PIPERACILLIN/TAZOBACTAM 4.5 GM in DEXTROSE 5% 100 ML IV SCH ×3 (10:00→23:09)
--- NOTE | 2019-11-06 13:11 | Hospitalist Progress Note ---
Date of Service November 06, 2019 Assessment & Plan (1) Fever: Patient febrile, tachycardic and tachypneic on arrival, 90% on room air, improved with 2L NC. Non-toxic in appearance. -Covid-19 test. Negative -Zosyn 3.375gm IV q 8 hours for possible gram-negative PNA consider left basilar infiltrate on x-ray. Negative MRSA Nasal swab on last visit Ct abd/pelvis IMPRESSION: 1. Gallstones as well as several small stones in the region of the cystic duct. 2. Study of the abdomen and pelvis is otherwise negative. (2) Gall stones: No laboratory or imaging evidence of acute cholecystitis. Patient's abdomen is diffusely tender rather than RUQ -Repeat LFTs are continuing normal on 11/04 making cholecystitis or cholangitis much less likely -Zosyn as above (3) Confusion: Most likely acute delirium in setting of infection. This is now resolved - (4) Type 2 diabetes mellitus: Blood sugar elevated at 192. OrjH2C=0.8% during recent admission -Lantus 10u BID, ISS, adjust as needed for target blood sugar 100 - 140 (5) Anxiety and depression: -Continues Buspirone 30mg po BID, trazodone and Escitalopram (6) Dementia: Chronic, with high risk for hospital acquired delirium Patient has returned to appropriate mental status for her (7) Asthma: Chronic and stable despite lung changes and treatment of pneumonia -Continue Cetirizine -Continue Ipratropium/Albuterol (8) Hypertension: Blood pressure stable. Losartan DCd during last hospital stay -Continue to monitor (9) CKD (chronic kidney disease), stage III: Baseline Cr of 1.4, numbers have improved from previous hospitalization Also has remained stable -Avoid nephrotoxic agents (10) History of pulmonary embolism: History of DVT/PE in 2015, anticoagulated with Eliquis -Continue Eliquis (11) Dyslipidemia: Chronic. Stable -Continue Simvastatin (12) Hypothyroidism: Chronic. Stable TSH -Continue home synthroid Ppx - Eliquis Code- Full Patient is deconditioning prevents immediate return to when he will snf will have PT OT evaluation and likely return in the next 1 to 2 days Admission and Anticipated Discharge Date Admission Date: November 06, 2019 Subjective this pt is much improved, less coughing now nonproductive, she feels somewhat weakened and deconditioned, she has no new complaints Review of Systems Review of Systems: Mild distress and fatigue no headache, blurry or double vision no speech or swallowing issues no chest pain, pressure or palpitations no shortness of breath, no nonproductive cough has no wheezes no abdominal pain, nausea or vomiting, diarrhea or constipation no dysuria, hematuria or frequency no focal joint pain or swelling no back pain, CVA tenderness or radicular pain no bruising, bleeding or rashes no focal signs of weakness or numbness or altered sensation overall feels weak and somewhat unsteady on her feet no complaints or anxiety or depression Physical Exam Physical Exam: The patient appeared well nourished and normally developed. Vital signs as documented. Head exam is normocephalic atraumatic no scleral icterus Neck is without JVD, thyromegaly, or carotid bruits. Lungs are some coarse breath sounds, more so at the left base, clearing with coughing Cardiac exam, Rhythm is regular.. No murmurs, rubs or gallops. Abdominal exam reveals normal bowel sounds, soft non tender, no masses Extremities are nonedematous and both pedal pulses are normal. Neurologic exam is alert and oriented, no focal loss of strength or sensation generally states she feels weak and tired Skin is without bruises or rashes Psychologically is without concerns for anxiety or depression Results & Data Results & Data ([facility]) Vital Signs (Past 12 Hours) Vital Signs Temp Pulse Pulse Resp BP Pulse Ox 11/06/19 11:30 98.6 F 81 18 99/55 L 93 11/06/19 06:57 72 16 93 PG Care Time/CCT Total # of Minutes Spent Total Time Spent with Patient: Total time spent is greater than 50% in coordination of care (as documented) at patient's floor/unit and/or counseling patient: Coding Level of Care Code 24915 Subseq Hosp Care Lvl 3 Diagnoses Fever R50.9 Fever type: unspecified Gall stones K80.20 Confusion R41.0 Type 2 diabetes mellitus E11.9; Z79.4 Diabetes mellitus terminal worker insulin use: with alf use Diabetes mellitus complication status: without complication Anxiety and depression F41.9; F32.9 Dementia F03.91 Dementia type: unspecified type Dementia behavioral disturbance: with behavioral disturbance Asthma J45.909 Asthma severity: unspecified severity Asthma persistence: unspecified Asthma complication type: uncomplicated Hypertension I10 Hypertension type: essential hypertension CKD (chronic kidney disease), stage III N18.3 History of pulmonary embolism Z86.711 Dyslipidemia E78.5 Hypothyroidism E03.9 Hypothyroidism type: unspecified (1) Fever Fever type: unspecified Qualified Code(s): R50.9 - Fever, unspecified (2) Type 2 diabetes mellitus Diabetes mellitus alf insulin use: with terminal worker use Diabetes mellitus complication status: without complication Qualified Code(s): E11.9 - Type 2 diabetes mellitus without complications; Z79.4 - long term care administrator (current) use of insulin (3) Dementia Dementia type: unspecified type Dementia behavioral disturbance: with behavioral disturbance Qualified Code(s): F03.91 - Unspecified dementia with behavioral disturbance (4) Asthma Asthma severity: unspecified severity Asthma persistence: unspecified Asthma complication type: uncomplicated Qualified Code(s): J45.909 - Unspecified asthma, uncomplicated (5) Hypertension Hypertension type: essential hypertension Qualified Code(s): I10 - Essential (primary) hypertension (6) Hypothyroidism Hypothyroidism type: unspecified Qualified Code(s): E03.9 - Hypothyroidism, unspecified
[2019-11-06] MEDS: LATANOPROST 0.005% OP SOLN 2.5 ML BTL OPB SCH (20:41)
[2019-11-06] MEDS: SIMVASTATIN 20 MG TAB PO SCH (20:43)
[2019-11-06] MEDS: TRAZODONE HCL 50 MG TAB PO SCH (20:49)
[2019-11-07] MEDS: ALBUT/IPRATROP 3MG/0.5MG NEB 3 ML VIAL INH SCH ×3 (07:21→19:10)
[2019-11-07] MEDS: ESCITALOPRAM OXALATE 10 MG TAB PO SCH (08:15)
[2019-11-07] MEDS: ARTIFICIAL TEARS OP SCH ×5 (08:15→20:25)
[2019-11-07] MEDS: CETIRIZINE HCL 10 MG TABLET PO SCH (08:15)
[2019-11-07] MEDS: THIAMINE HCL 50 MG TABLET PO SCH (08:15)
[2019-11-07] MEDS: FOLIC ACID 1 MG TAB PO SCH (08:15)
[2019-11-07] MEDS: CALCIUM 600MG + VIT D 400 IU TAB PO SCH ×2 (08:15→20:11)
[2019-11-07] MEDS: BusPIRone 15 MG TAB PO SCH ×2 (08:15→20:10)
[2019-11-07] MEDS: APIXABAN 2.5 MG TAB PO SCH ×2 (08:15→20:13)
[2019-11-07] MEDS: ACETAMINOPHEN 500 MG TAB PO SCH ×3 (08:15→23:52)
[2019-11-07] MEDS: LEVOTHYROXINE SODIUM 88 MCG TABLET PO SCH (08:16)
[2019-11-07] MEDS: INSULIN ASPART 100 UNITS/ML 3 ML PEN SC SCH ×4 (08:18→20:21)
[2019-11-07] MEDS: INSULIN GLARGINE SOLOSTAR 100 UNITS/ML 3 ML PEN SC SCH ×2 (08:20→20:15)
[2019-11-07] MEDS: PIPERACILLIN/TAZOBACTAM 4.5 GM in DEXTROSE 5% 100 ML IV SCH ×2 (08:47→15:59)
--- NOTE | 2019-11-07 15:07 | Hospitalist Progress Note ---
Date of Service November 07, 2019 Assessment & Plan (1) Pneumonia: Patient is readmitted due to worsening shortness of breath and fevers and mental status. #1 Fever, in setting of tachycardia and tachypneic on arrival, mildly hypoxic. -improved with 2L NC, and now satting well on room air -Covid-19 test is Negative -Improved on Zosyn x 3 days for possible gram-negative PNA with left basilar infiltrate on x-ray. Negative MRSA Nasal swab on last visit. Improving with no real MRSA coverage, therefore suspect pseudomonas may be at play. -will switch to Levauin, renally dosed. #[address] abd/pelvis, + gallstones in gallbladder as well as cystic duct, study of the abdomen and pelvis is otherwise negative. She is asymptomatic. 3 days of zosyn completed. #3 Confusion: acute delirium in setting of PNA. This has resolved. Other chronic conditions (no acute issues): #4 Type 2 diabetes mellitus: Continue Lantus 10u BID, ISS, adjust as needed for target blood sugar 100 - 140. #5 Anxiety and depression:Continues Buspirone 30mg po BID, trazodone and Escitalopram #6 Dementia: Chronic, with high risk for hospital acquired delirium. Patient has returned to appropriate mental status for her. #7 Asthma: Chronic and stable despite lung changes and treatment of pneumonia. Continue home Cetirizine, inhalers Ipratropium/Albuterol. #8 Hypertension: Blood pressure stable. Losartan DCd during last hospital stay. Continue to monitor. #9 CKD (chronic kidney disease), stage III: Baseline Cr of 1.4, numbers have improved from previous hospitalization, no acute issues. Renally dose meds. #10 History of pulmonary embolism: History of DVT/PE in 2014, anticoagulated with Eliquis to continue. #11 Dyslipidemia:Stable, continue Simvastatin #12 Hypothyroidism: Chronic. Stable TSH. continue home synthroid Ppx - Eliquis Code- Full Admission and Anticipated Discharge Date Admission Date: November 06, 2019 Anticipated date of discharge: 11/07/19 Supervising Physician Co-Signing Physician Notes I personally examined the patient and verified all meyers points of history and exam, discussed case, and agree with decision making with Dr Daugherty. feeling better just bored. breathing better overall. would like to get out of hospital (after discussions with case management this will likely take an extra day given her [facility] status) vitals noted nad heent nc at mmm breathing unlabored no accessory muscles good effort skin no rashes no pallor or icterus neuro no focal deficits pneumonia - got better initially last stay - then worse again shortly after dc - given changing abx biggest concern would be gram negative pneumonia such as pseudomonas - so given risks are sending on ongoing IV vs short course PO levaquin - will change to levaquin. concern on aspiration given repeated pneumonias in theory - but when we were in the room she drank effectively from a cup of water with a straw without s/s aspiration - so less likely (ok for speech eval routinely at [facility]). morbid obesity w BMI 41.3 - complicating factor, likely limits mobility and deep breathing metabolic encephalopathy secondary to pneumonia POA now resolved - reassurrance, reorientation, supportive care dispo - likely return to [facility] tomorrow once additional care can be arranged. otherwise as above Subjective Talkative, sitting upright in her chair - expresses that she is feeling better and that she is eating well. Her cough is improved, only an occasional cough, no real sputum production. Feels well. Worked with PT this AM, knows she has to use her walker. Will work with PT again tomorrow, and arrangements are being made for appropriate care. Review of Systems Review of Systems: All systems reviewed & are unremarkable except as noted in HPI & below cough improved denies shortness of breath or pre syncope or weakness Physical Exam Physical Exam: Vitals noted and reviewed, as above GENERAL: no acute distress HEAD: normocephalic atraumatic ENT: sclerae normal, trachea midline RESP: normal work of breathing CV: regular rate and rhythm ABDOMEN: nondistended SKIN: no rashes or jaundice PSYCH: appropriate mood and affect Results & Data Results & Data ([facility]) Vital Signs (Past 12 Hours) Vital Signs Temp Pulse Pulse Resp BP Pulse Ox 11/07/19 13:11 83 16 98 11/07/19 07:33 36.8 C 72 20 164/83 H 95 11/07/19 07:21 69 14 96 Laboratory Results 11/07/19 11/07/19 11/06/19 Range/Units 11:26 07:26 20:00 POC Glucose 219 H 185 H 187 H (70-99) mg/dl 11/06/19 Range/Units 16:52 POC Glucose 165 H (70-99) mg/dl Medications Administered Current Inpatient Medications Acetaminophen (Tylenol) 500 mg PO TID@0000,0800,1600 [facility] Stop: 12/05/19 15:59 Last Admin: 11/07/19 08:15 Dose: 500 mg Documented by: Albuterol (Duoneb) 3 ml INH TIDR [facility] Stop: 12/05/19 06:59 Last Admin: 11/07/19 13:06 Dose: 3 ml Documented by: Apixaban (Eliquis) 2.5 mg PO BID@08,1999 [facility] Stop: 12/05/19 19:59 Last Admin: 11/07/19 08:15 Dose: 2.5 mg Documented by: Artificial Tears (Artificial Tears) 1 drops OP 0800,1200,1599,1999 [facility] Stop: 12/05/19 11:59 Last Admin: 11/07/19 12:39 Dose: Not Given Documented by: Benzonatate (Tessalon Perle) 100 mg PO TID PRN PRN Reason: Cough Stop: 12/05/19 01:59 Buspirone HCl (Buspar) 30 mg PO BID@799,1999 [facility] Stop: 12/05/19 19:59 Last Admin: 11/07/19 08:15 Dose: 30 mg Documented by: Cetirizine HCl (Zyrtec) 5 mg PO DAILY@0800 [facility] Stop: 12/06/19 07:59 Last Admin: 11/07/19 08:15 Dose: 5 mg Documented by: Dextrose (Dextrose 50%) 25 - 50 ml IV UD PRN; Protocol PRN Reason: Hypoglycemia Protocol Stop: 12/05/19 01:59 Diphenhydramine HCl (Benadryl Capsule) 25 mg PO Q6H PRN PRN Reason: Itching Stop: 12/05/19 02:23 Escitalopram Oxalate (Lexapro Tab) 10 mg PO QAM@0800 [facility] Stop: 12/06/19 07:59 Last Admin: 11/07/19 08:15 Dose: 10 mg Documented by: Folic Acid (Folvite) 1 mg PO QAM@0800 [facility] Stop: 12/06/19 07:59 Last Admin: 11/07/19 08:15 Dose: 1 mg Documented by: Glucagon (Glucagen) 1 mg SQ UD PRN; Protocol PRN Reason: Hypoglycemia Protocol Stop: 12/05/19 01:59 Glucose (Dex4 Glucose) 4 - 8 tabs PO UD PRN; Protocol PRN Reason: Hypoglycemia Protocol Stop: 12/05/19 01:59 Glucose (Glucose 40%) 15 - 30 gm PO UD PRN; Protocol PRN Reason: Hypoglycemia Protocol Stop: 12/05/19 01:59 Piperacillin Sod/Tazobactam (Sod 4.5 gm/ Dextrose) 120 mls @ 30 mls/hr IV Q8H [facility]; Protocol Stop: 11/12/19 07:59 Last Infusion: 11/07/19 13:22 Dose: Infused Documented by: Insulin Aspart (Novolog Flexpen) 0 units SC [facility] Stop: 12/05/19 07:29 Last Admin: 11/07/19 12:38 Dose: 9 units Documented by: Insulin Glargine (Lantus Solostar Pen) 10 units SC BID@ [facility] Stop: 12/05/19 19:59 Last Admin: 11/07/19 08:20 Dose: 10 units Documented by: Latanoprost (Xalatan Oph) 1 drops OPB HS@1999 [facility] Stop: 12/05/19 19:59 Last Admin: 11/06/19 20:41 Dose: 1 drops Documented by: Levothyroxine Sodium (Synthroid) 88 mcg PO DAILY@0800 [facility] Stop: 12/06/19 07:59 Last Admin: 11/07/19 08:16 Dose: 88 mcg Documented by: Miscellaneous (Carbohydrates For Hypoglycemia) 15 - 30 gm PO UD PRN PRN Reason: Hypoglycemia Protocol Stop: 12/05/19 01:59 Miscellaneous Information (Consult) 1 ea N/A UD PRN PRN Reason: Consult Stop: 12/05/19 01:59 Multivitamins/Minerals (Caltrate Plus) 1 tab PO BID@ [facility] Stop: 12/05/19 19:59 Last Admin: 11/07/19 08:15 Dose: 1 tab Documented by: Simvastatin (Zocor) 20 mg PO HS@1999 [facility] Stop: 12/05/19 19:59 Last Admin: 11/06/19 20:43 Dose: 20 mg Documented by: Thiamine HCl (Vitamin B-1) 50 mg PO QAM@08 [facility] Stop: 12/06/19 07:59 Last Admin: 11/07/19 08:15 Dose: 50 mg Documented by: Trazodone HCl (Desyrel) 50 mg PO HS@1999 [facility] Stop: 12/05/19 19:59 Last Admin: 11/06/19 20:49 Dose: 50 mg Documented by: Resident Activity Tracking Resident Involvement: Resident Care Provided Care Provided: Adult Hospital Medicine (1) Pneumonia Laterality: left Lung location: lower lobe of lung Pneumonia type: due to unspecified organism Qualified Code(s): J18.9 - Pneumonia, unspecified organism
--- NOTE | 2019-11-07 19:15 | Billing Data ---
Date of Service November 07, 2019 Coding Level of Care Code 15670 Subseq Hosp Care Lvl 3
[2019-11-07] MEDS: TRAZODONE HCL 50 MG TAB PO SCH (20:12)
[2019-11-07] MEDS: SIMVASTATIN 20 MG TAB PO SCH (20:13)
[2019-11-07] MEDS: LATANOPROST 0.005% OP SOLN 2.5 ML BTL OPB SCH ×2 (20:14→20:26)
[2019-11-07 23:18] VITALS: O2SAT 95
[2019-11-08] MEDS ORDERED: PIPERACILLIN/TAZOBACTAM 4.5 GM in DEXTROSE 5% 100 ML IV SCH
[2019-11-08] MEDS ORDERED: levoFLOXacin 750 MG TAB PO SCH ×2 (06:30→08:00)
[2019-11-08 07:04] VITALS: BP 140/78; TEMP 98.1
[2019-11-08] MEDS: ALBUT/IPRATROP 3MG/0.5MG NEB 3 ML VIAL INH SCH ×2 (07:19→13:25)
[2019-11-08] MEDS: APIXABAN 2.5 MG TAB PO SCH (07:53)
[2019-11-08] MEDS: THIAMINE HCL 50 MG TABLET PO SCH (07:53)
[2019-11-08] MEDS: CETIRIZINE HCL 10 MG TABLET PO SCH (07:53)
[2019-11-08] MEDS: BusPIRone 15 MG TAB PO SCH (07:53)
[2019-11-08] MEDS: ESCITALOPRAM OXALATE 10 MG TAB PO SCH (07:53)
[2019-11-08] MEDS: ARTIFICIAL TEARS OP SCH ×2 (07:53→12:04)
[2019-11-08] MEDS: LEVOTHYROXINE SODIUM 88 MCG TABLET PO SCH (07:54)
[2019-11-08] MEDS: INSULIN GLARGINE SOLOSTAR 100 UNITS/ML 3 ML PEN SC SCH (07:54)
[2019-11-08] MEDS: FOLIC ACID 1 MG TAB PO SCH (07:54)
[2019-11-08] MEDS: INSULIN ASPART 100 UNITS/ML 3 ML PEN SC SCH ×2 (07:55→12:05)
[2019-11-08] MEDS: ACETAMINOPHEN 500 MG TAB PO SCH (07:58)
--- NOTE | 2019-11-08 09:24 | Discharge Summary ---
Date of Service November 08, 2019 Admission HPI Per Admitting Provider Dana Ruvalcaba is an 84yo C female with history of DM/HTN/CKD/DVT on Eliquis anticoagulation. She was recently admitted to [facility] on 10/25/19 with concern for LLL PNA, UTI and increased weakness/fall and confusion. She was treated with antibiotics (Ceftriaxone, Azithromycin, Unasyn and Zosyn) for PNA. She had a negative Biofire panel and Covid-19 testing. She was discharged to [facility] on 11/02/19 in stable condition. Her daughter states that she has been improving and was getting back to normal, possibly slightly more lethargic than usual. This evening the patient ate dinner with no issue, however, later in the evening she was found wandering around the halls in the custodial. She was febrile to 102, hypoxic with saturations of high 80%s on room air. Her daughter reports that she has been coughing slightly and patient complaining of mild SOB, weakness and fatigue. She offers no additioanal complaints. ER Course: Acetaminophen, Magnesium 1gm, NSS Principal Diagnosis recurrent (presumably gram negative) pneumonia Discharge Exam Vitals noted and reviewed, as above GENERAL: no acute distress HEAD: normocephalic atraumatic ENT: sclerae normal, trachea midline RESP: normal work of breathing CV: regular rate and rhythm ABDOMEN: nondistended SKIN: no rashes or jaundice PSYCH: appropriate mood and affect Discharge Data Allergies Allergy/AdvReac Type Severity Reaction Status Date / Time doxycycline Allergy Mild Rash Verified 11/04/19 22:15 oxybutynin Allergy Mild Rash Verified 11/04/19 22:15 codeine Allergy Unknown Unknown Verified 11/04/19 22:15 fluticasone Allergy Unknown Unknown Verified 11/04/19 22:15 salmeterol Allergy Unknown Unknown Verified 11/04/19 22:15 Sulfa (Sulfonamide Allergy Unknown Unknown Verified 11/04/19 22:15 Antibiotics) troleandomycin Allergy Unknown Unknown Verified 11/04/19 22:15 Macrolide Antibiotics Allergy Unknown Verified 11/04/19 22:15 milk Allergy noted as Verified 11/05/19 02:13 "milk protein extract" allergy Consultations 11/04/19 23:11 ED Decision to Admit Stat Ordered Studies 11/04/19 20:38 CT abd pelvis wo con Stat Hospital Course (1) Pneumonia: Patient is readmitted due to worsening shortness of breath and fevers and mental status - improving on empiric treatment for pneumonia, possibly pseudomonal. Recommend complete a course of levaquin. #1 Fever, in setting of tachycardia and tachypneic on arrival, mildly hypoxic. -improved with 2L NC, and now satting well on room air -Covid-19 test is Negative x2 (October 27 and November 05, 2019.) -Improved on Zosyn x 3 days for possible gram-negative PNA with left basilar infiltrate on x-ray. Negative MRSA Nasal swab on last visit and was discharged on macrobid. Recommend complete full course of levaquin to cover for appropriate bacteria. Renally dosed. -take 1 tab , , then stop. #[address] abd/pelvis, + gallstones in gallbladder as well as cystic duct, study of the abdomen and pelvis is otherwise negative. She is asymptomatic. 3 days of zosyn completed. #3 Confusion: acute delirium in setting of PNA. This has resolved. Other chronic conditions (no acute issues): #4 Type 2 diabetes mellitus: Continue Lantus 10u BID, ISS, adjust as needed for target blood sugar 100 - 140. #5 Anxiety and depression:Continues Buspirone 30mg po BID, trazodone and Escitalopram #6 Dementia: Chronic, with high risk for hospital acquired delirium. Patient has returned to appropriate mental status for her. #7 Asthma: Chronic and stable despite lung changes and treatment of pneumonia. Continue home Cetirizine, inhalers Ipratropium/Albuterol. #8 Hypertension: Blood pressure stable. Losartan DCd during last hospital stay. Continue to monitor. #9 CKD (chronic kidney disease), stage III: Baseline Cr of 1.4, numbers have improved from previous hospitalization, no acute issues. Renally dose meds. #10 History of pulmonary embolism: History of DVT/PE in 2015, anticoagulated with Eliquis to continue. #11 Dyslipidemia:Stable, continue Simvastatin #12 Hypothyroidism: Chronic. Stable TSH. continue home synthroid Ppx - Eliquis Code- Full Total Time Total Time Spent Total Time Spent (In Minutes): <30 Discharge Plan Discharge Items Patient Disposition: Personal Senior Living Reason For Visit: FEVER,HYPOXIA,COUGH,COVID RULE OUT Discharge Diagnosis: Community acquired Pneumonia Condition on Discharge: Good Activity: Per Instructions section Activity Comment: ad jean pierre/as tolerated Lifting: Gradually increase as tolerated Bathing: No limitations Exercise/Sports: Gradually increase as tolerated Non-emergency contact: Primary Care Provider Call non-emergency contact if: you have any medication questions, your symptoms worsen and your temperature is above 101 Follow-up/Referrals: Eve Weaver, DO [Primary Care Provider] - 11/14/19 2:40 pm (Please, follow up at Dr. Weaver's office with her associate, Marquis CROWLEY, on ThursdayNovember 13 at 2:40 pm. *If you need to change this appointment, call their office at [phone].) Diet: Carb Consistent or DM2 Addtl Attending Provider Instructions: Patient is readmitted due to worsening shortness of breath and fevers and mental status - improving on empiric treatment for pneumonia, possibly pseudomonal. Recommend complete a course of levaquin. #1 Fever, in setting of tachycardia and tachypneic on arrival, mildly hypoxic. -improved with 2L NC, and now satting well on room air -Covid-19 test is Negative x2 (October 27 and November 05, 2019.) -Improved on Zosyn x 3 days for possible gram-negative PNA with left basilar infiltrate on x-ray. Negative MRSA Nasal swab on last visit and was discharged on macrobid. Recommend complete full course of levaquin to cover for appropriate bacteria. Renally dosed. -take 1 tab , , then stop. #[address] abd/pelvis, + gallstones in gallbladder as well as cystic duct, study of the abdomen and pelvis is otherwise negative. She is asymptomatic. 3 days of zosyn completed. #3 Confusion: acute delirium in setting of PNA. This has resolved. Other chronic conditions (no acute issues): #4 Type 2 diabetes mellitus: Continue Lantus 10u BID, ISS, adjust as needed for target blood sugar 100 - 140. #5 Anxiety and depression:Continues Buspirone 30mg po BID, trazodone and Escitalopram #6 Dementia: Chronic, with high risk for hospital acquired delirium. Patient has returned to appropriate mental status for her. #7 Asthma: Chronic and stable despite lung changes and treatment of pneumonia. Continue home Cetirizine, inhalers Ipratropium/Albuterol. #8 Hypertension: Blood pressure stable. Losartan DCd during last hospital stay. Continue to monitor. #9 CKD (chronic kidney disease), stage III: Baseline Cr of 1.4, numbers have improved from previous hospitalization, no acute issues. Renally dose meds. #10 History of pulmonary embolism: History of DVT/PE in 2015, anticoagulated with Eliquis to continue. #11 Dyslipidemia:Stable, continue Simvastatin #12 Hypothyroidism: Chronic. Stable TSH. continue home synthroid Ppx - Eliquis Code- Full Pending Studies at Discharge: No Stand-Alone Forms: TOMODO, Smoking Cessation Skilled Items Patient informed of condition?: Yes DNR: No Discharge Level of Care: Skilled Communicable Disease: No Discharge Prognosis: Stable Lines: None Urinary Catheter: No Medications and DC Order Prescriptions: New levofloxacin 750 mg Tablet 750 mg PO Q2D@0800 6 Days Qty: 3 RF: 0 Continued thiamine HCl (vitamin B1) [Vitamin B-1] 50 mg tablet 50 mg PO QAM RF: 0 Lantus U-100 Insulin 100 unit/mL solution 28 units subcut QAM RF: 0 Caltrate 600-D Plus Minerals 600 mg calcium- 800 unit-50 mg tablet 1 tab PO BID RF: 0 latanoprost [Xalatan] 0.005 % Drops 1 drp OPB HS RF: 0 trazodone 50 mg Tablet 50 mg PO HS RF: 0 levothyroxine 88 mcg Tablet 88 mcg PO QAM RF: 0 simvastatin 20 mg Tablet 20 mg PO HS RF: 0 folic acid 1 mg Tablet 1 mg PO QAM RF: 0 escitalopram oxalate 10 mg Tablet 10 mg PO QAM RF: 0 acetaminophen [Tylenol Extra Strength] 500 mg tablet 500 mg PO TID RF: 0 Eliquis 2.5 mg Tablet 2.5 mg PO BID RF: 0 ipratropium-albuterol 0.5 mg-3 mg(2.5 mg base)/3 mL Solution For Nebulization 3 ml INHALATION TID RF: 0 Artificial Tears (cmc) 1 % Drops 1 drp OPB QID RF: 0 buspirone 30 mg tablet 30 mg PO BID RF: 0 insulin lispro [Humalog U-100 Insulin] 100 unit/mL solution 1 sliding scale dose subcut AC RF: 0 cetirizine 10 mg Tablet 5 mg PO DAILY RF: 0 diphenhydramine HCl 25 mg Tablet 25 mg PO Q6H PRN (Reason: Itching) RF: 0 benzonatate [Tessalon Perles] 100 mg capsule 100 mg PO TID PRN (Reason: Cough) RF: 0 Discontinued nitrofurantoin macrocrystal 100 mg capsule 100 mg PO BID 5 Days Qty: 10 RF: 0 Discharge Orders: Discharge Order (Routine); Ordered 11/08/19 Ordered By: Celia Daugherty Admission Data Admit Date/Time: 11/06/19 11:27 Attending Provider: Simone Pardo Admit Provider: Shari Truong Primary Care Provider: Eve Weaver Other Providers: Shari Truong ; [facility] ; Andrzej Villanueva Other Interventions: Discharge Summary Assessment (RN) Last Done: 11/08/19 11:21 DC Date/Time DO NOT enter until pt leaves facility: 11/08/19 13:44 Supervising Physician Co-Signing Physician Notes I personally examined the patient and verified all meyers points of history and exam, discussed case, and agree with decision making with Dr Daugherty. no complaints, ready to get out of hospital. vitals noted nad heent nc at mmm breathing unlabored no accessory muscles good effort skin no rashes no pallor or icterus neuro no focal deficits pneumonia - got better initially last stay - then worse again shortly after dc - given changing abx biggest concern would be gram negative pneumonia such as pseudomonas - so given risks are sending on ongoing IV vs short course PO levaquin - changed to levaquin. concern on aspiration given repeated pneumonias in theory - but when we were in the room on 11/06 she drank effectively from a cup of water with a straw without s/s aspiration - so less likely (ok for speech eval routinely at [facility]). morbid obesity w BMI 41.3 - complicating factor, likely limits mobility and deep breathing metabolic encephalopathy secondary to pneumonia POA now resolved - reassurrance, reorientation, supportive care dispo - return to [facility] otherwise as above Resident Activity Tracking Resident Involvement: Resident Care Provided Care Provided: Adult Hospital Medicine
[2019-11-08 11:22] VITALS: PULSE 93
[2019-11-08] MEDS: CALCIUM 600MG + VIT D 400 IU TAB PO SCH (12:05)
--- NOTE | 2019-11-08 19:23 | Billing Data ---
Date of Service November 08, 2019 Coding Level of Care Code D/C Day Management <30 mins
--- NOTE | 2019-11-25 06:46 | Coding Query ---
CODING QUERY To promote full compliance with coding requirements relating to patient care, provider participation is requested in all cases of braille coder uncertainty. Please assist us with the question(s) below: Coding Question(s): Please clarify type of pneumonia that was present. Physician's Response(s): see discharge summary -- possible pseudomonal, concern for gram negative, thanks Thank you Saskia Ascencio Principal Diagnosis: "that condition established after study, to be chiefly responsible for occasioning the admission of the patient to the hospital for care." Co-Existing Principal Diagnosis: "when two or more diagnoses equally meet the criteria for principal diagnosis as determined by the circumstances of admission, diagnostic work up, and/or therapy provided, and the Alphabetic Index, Tabular List, or another coding guideline does not provide sequencing direction, any one of the diagnoses may be sequenced first." "When the physician has documented what appears to be a current diagnosis in the body of the record, but has not included the diagnosis in the final diagnostic statement, the physician should be asked whether the diagnosis should be added." (Source [facility] 2 QTR90. p3-4) OTF
== END 2019-11-08 13:44 | disposition home or self-care (01) | DRG 177 ==
LOC: ED 20:28 → 2S 20:28 → SUATTDRO 11-05 00:28 → 2S 11-05 01:12 → 2W 11-05 15:35 → SUATTDRO 11-06 11:27

== ENCOUNTER 2020-03-12 10:53 | Inpatient (IN) ==
[2020-03-12] MEDS ORDERED: ACETAMINOPHEN 500 MG TAB PO STA (11:12)
--- NOTE | 2020-03-12 11:14 | Emergency Department Note ---
Impression & Plan Syncope and collapse, Fall, Right anterior knee pain ED Provider Note INFORMANT: Patient ED PROVIDER(S): Mynor Noonan MD CHIEF COMPLAINT: Fall PLAN: Disposition: Admitted Condition: Good MEDICAL DECISION MAKING: Patient presented because of a fall. Nursing did contact the [facility]dc and verified the history. The patient did not have a syncopal episode. She may have become dizzy or lost her balance and fell. The patient does have a history of this. Her CT imaging did not reveal any acute intracranial process. Chest x-ray was negative. The patient's laboratory studies including a CBC, chemistry panel and troponin were unremarkable except for mildly low magnesium. This was repleted. Her ECG revealed a normal sinus rhythm. Unfortunate patient's urinalysis was grossly abnormal concerning for infection. Record review indicates the patient does have history of ESBL E. coli infection. She just finished Macrobid. Given her renal function being slightly diminished Macrobid would not be a reasonable choice. After discussion with pharmacy IV ertapenem was administered. The patient will need further management in the hospital. Consultation was made with internal medicine, and the patient was admitted for further management. Triage Nursing notes reviewed and agree them. Additional history obtained from family Prior medical records reviewed, history of ESBL E. coli Vital Signs: reviewed and remarkable for no significant abnormalities Differential diagnosis: ICH, subdural hematoma, infection, dehydration, metabolic abnormality, hypo/hyperglycemia, electrolyte disturbance, anemia, hypoxia, cardiac sources, intracerebral event, toxicologic, neurologic, as well as other pathologies. Diagnostics interpreted by me: ECG: Twelve-lead ECG reveals a normal sinus rhythm at 66 bpm. There is a normal QRS duration however low voltage present. Nonspecific ST. No ST elevation or depression. No PVCs. Normal axis. Cardiac Monitoring: Cardiac monitoring ordered by me: The patient was placed on continuous cardiac monitoring and observed. It revealed a normal sinus rhythm at 68 beats per minute without ectopy or evidence of dysrhythmia. Imaging studies: Chest x-ray and CT scan as noted above. I refer you to the EMR for further details. X-ray imaging of the right knee reveals no evidence of fracture or dislocation. Consultation(s): [facility] service, Dr. Rios HPI: The patient is a 84 year old female who presents to the Emergency Room after a syncopal episode at her nursing facility. This started just [employer] per ems. The patient also notes the following associated symptoms, head feels empty and right knee pain. The patient has been given no medication for relieving factors. Unable to rate current pain. The patient reportedly has a history of dementia. She is unsure why she is here in the emergency department. Does not remember falling. Denies neck pain, chest pain, difficulty breathing, abdominal pain, back pain, arm pain, or left leg pain. History is limited secondary to dementia. ROS: See above HPI for pertinent positives & negatives. A total of 10 systems reviewed and were otherwise negative. PAST MEDICAL HISTORY:See Below, diabetes, dementia, CKD PAST SURGICAL HISTORY:See Below, FAMILY HISTORY:See Below SOCIAL HISTORY:See Below, resides in nursing facility HOME MEDICATIONS:See Below ALLERGIES:See Below VITALS:See Below PHYSICAL EXAMINATION: GENERAL: Awake, alert, well-appearing, in no distress HENT: Normocephalic, atraumatic. Oropharynx unremarkable. EYES: Normal conjunctiva. Sclera non-icteric. NECK: Inspection normal. Non-tender. Supple. No nuchal rigidity. FROM. No masses. RESPIRATORY: Clear to auscultation. No wheezes. No rales. Normal respiratory effort. CARDIAC: Normal rate. Normal rhythm. No murmurs. No rubs. Extremities warm and well perfused. Pulses equal. No JVD. GI: Soft, non-distended. No tenderness to palpation. No rebound or guarding. No masses. RECTAL: Deferred. MUSCULOSKELETAL: Atraumatic appearing. Chest examination reveals no tenderness. The back is symmetrical on inspection without obvious abnormality. There is no midline or CVA tenderness to palpation. No joint edema. LOWER EXTREMITIES: Minimal tenderness to the anterior aspect of the right knee. No gross deformities. Calves are equal size bilaterally and non-tender. No edema. No discoloration. NEURO: Normal sensorium. No sensory or motor deficits noted. SKIN: No rash or jaundice noted. Mynor Noonan MD Past Med/Surg History Medical History (Updated 03/12/20 @ 11:14 by Mynor Noonan MD) Allergic rhinitis Anxiety and depression Arthritis Asthma Cardiomyopathy CKD (chronic kidney disease), stage III Dementia Dyslipidemia Endometrioid adenocarcinoma of uterus History of DVT (deep vein thrombosis) (2014) "LLE 2014" History of pulmonary embolism (2014) "2014" Hypertension Hypothyroidism Hypothyroidism Type 2 diabetes mellitus Urinary incontinence Vertigo Vitamin D deficiency Surgical History H/O cataract extraction History of robot-assisted laparoscopic hysterectomy (10/2018) 11/10/18 - with BSO with B/L SLN Biopsy and Right pelvic lymph node dissection and cystoscopy (Dr. Buffy Mayo in [place]) S/P appendectomy as a child S/P foot surgery (2004) S/P tonsillectomy and adenoidectomy Family History Mother , Passed in 80s/90's of old age No problems noted. Father , Passed in 70's of black lung complications ([place]) Lung disease Sister , Passed in 80's of unknown No problems noted. Sister , Passed in 60's of unknown No problems noted. Brother , Passed in 60's of unknown (alcoholic) Hypertension Brother , Passed in late 70's of unknown Lung disease Daughter No problems noted. Son No problems noted. Son No problems noted. Son No problems noted. 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 Feels Safe at Home: Yes Childhood Exposure to Second-Hand Smoke: No Diet Comment: well balanced diet caffeine: No during the past year weight has: increased > 10 lbs Dental Care, Regularly: No Physical Activity Frequency: Does not Exercise Seatbelt Use: always Sunscreen Use: No Allergies Allergies Allergy/AdvReac Type Severity Reaction Status Date / Time doxycycline Allergy Mild Rash Verified 03/12/20 13:18 oxybutynin Allergy Mild Rash Verified 03/12/20 13:18 codeine Allergy Unknown Unknown Verified 03/12/20 13:18 fluticasone Allergy Unknown Unknown Verified 03/12/20 13:18 salmeterol Allergy Unknown Unknown Verified 03/12/20 13:18 Sulfa (Sulfonamide Allergy Unknown Unknown Verified 03/12/20 13:18 Antibiotics) troleandomycin Allergy Unknown Unknown Verified 03/12/20 13:18 Macrolide Antibiotics Allergy Unknown Verified 03/12/20 13:18 milk Allergy noted as Verified 03/12/20 13:18 "milk protein extract" allergy Home Meds Home Medications Medication Instructions Recorded Confirmed escitalopram oxalate 10 mg PO QAM 08/04/18 03/12/20 folic acid 1 mg PO QAM 08/04/18 03/12/20 latanoprost [Xalatan] 1 drp OPB HS 08/04/18 03/12/20 levothyroxine 88 mcg PO QAM 08/04/18 03/12/20 simvastatin 20 mg PO HS 08/04/18 03/12/20 trazodone 50 mg PO HS 08/04/18 03/12/20 acetaminophen 500 mg tablet 500 mg PO TID 12/16/18 03/12/20 calcium 600 mg-D3 800 unit-mag11 1 tab PO BID tab 02/10/19 03/12/20 50 ca-psem-zgcewn-cristofer-s.borat tablet insulin lispro 100 unit/mL 1 sliding scale dose SUBCUT AC ml 02/10/19 03/12/20 subcutaneous solution Eliquis 2.5 mg PO BID 03/13/19 03/12/20 insulin glargine 100 unit/mL 28 units SUBCUT QAM ml 03/23/19 03/12/20 subcutaneous solution Artificial Tears (cmc) 1 drp OPB QID 06/04/19 03/12/20 ipratropium-albuterol 3 ml INHALATION TID 06/04/19 03/12/20 thiamine HCl (vitamin B1) 50 mg 50 mg PO QAM 08/03/19 03/12/20 tablet cetirizine 5 mg PO QAM 10/25/19 03/12/20 benzonatate 100 mg capsule 100 mg PO TID PRN 01/06/20 03/12/20 diphenhydramine HCl 25 mg capsule 25 mg PO Q6 PRN 01/06/20 03/12/20 buspirone [BuSpar] 15 mg PO BID 03/12/20 03/12/20 Previous Rx's Medication Instructions Recorded compr.stocking,knee,long,large #2 ea 02/14/20 furosemide 20 mg tablet 20 mg PO DAILY #15 tab 02/14/20 nitrofurantoin 100 mg PO BID 7 Days #14 cap 02/27/20 monohydrate/macrocrystals 100 mg capsule Results & Data (ED) Vital Signs Vital Signs - 24 hr 03/12/20 11:00 03/12/20 11:03 03/12/20 11:05 Temperature 36.5 C Temperature Source Oral Pulse Rate 62 66 62 Pulse Rate from SpO2 Sensor 63 63 Respiratory Rate 20 16 20 Blood Pressure 165/59 H 165/59 H Blood Pressure Mean 94 94 Pulse Oximetry 94 94 95 Oxygen Delivery Method Room Air Sepsis Recent Fever Within 48 Hours No Sepsis New/Unexplained Change in Mental Status No Sepsis Action Taken by Nursing No Action Required 03/12/20 11:10 03/12/20 11:20 03/12/20 11:31 Temperature Temperature Source Pulse Rate 64 69 65 Pulse Rate from SpO2 Sensor 64 70 64 Respiratory Rate 22 17 17 Blood Pressure Blood Pressure Mean Pulse Oximetry 94 94 96 Oxygen Delivery Method Sepsis Recent Fever Within 48 Hours Sepsis New/Unexplained Change in Mental Status Sepsis Action Taken by Nursing 03/12/20 12:00 03/12/20 12:02 03/12/20 12:03 Temperature Temperature Source Pulse Rate 61 65 64 Pulse Rate from SpO2 Sensor 65 64 Respiratory Rate 19 17 14 Blood Pressure 167/76 H Blood Pressure Mean 93 Pulse Oximetry 93 96 Oxygen Delivery Method Sepsis Recent Fever Within 48 Hours Sepsis New/Unexplained Change in Mental Status Sepsis Action Taken by Nursing 03/12/20 12:11 03/12/20 12:20 03/12/20 12:30 Temperature Temperature Source Pulse Rate 62 64 63 Pulse Rate from SpO2 Sensor 63 64 63 Respiratory Rate 19 21 18 Blood Pressure 167/75 H Blood Pressure Mean 91 Pulse Oximetry 97 96 95 Oxygen Delivery Method Sepsis Recent Fever Within 48 Hours Sepsis New/Unexplained Change in Mental Status Sepsis Action Taken by Nursing 03/12/20 12:41 03/12/20 12:50 03/12/20 13:00 Temperature Temperature Source Pulse Rate 62 61 67 Pulse Rate from SpO2 Sensor 62 61 64 Respiratory Rate 21 19 16 Blood Pressure 145/74 H Blood Pressure Mean 95 Pulse Oximetry 97 96 96 Oxygen Delivery Method Sepsis Recent Fever Within 48 Hours Sepsis New/Unexplained Change in Mental Status Sepsis Action Taken by Nursing 03/12/20 13:11 03/12/20 13:20 03/12/20 13:30 Temperature Temperature Source Pulse Rate Pulse Rate from SpO2 Sensor 68 68 Respiratory Rate Blood Pressure 156/74 H Blood Pressure Mean 99 Pulse Oximetry 96 98 Oxygen Delivery Method Sepsis Recent Fever Within 48 Hours Sepsis New/Unexplained Change in Mental Status Sepsis Action Taken by Nursing 03/12/20 13:35 03/12/20 13:41 03/12/20 13:50 Temperature Temperature Source Pulse Rate 96 H 68 70 Pulse Rate from SpO2 Sensor Respiratory Rate 20 Blood Pressure Blood Pressure Mean Pulse Oximetry Oxygen Delivery Method Sepsis Recent Fever Within 48 Hours Sepsis New/Unexplained Change in Mental Status Sepsis Action Taken by Nursing 03/12/20 14:00 03/12/20 14:10 03/12/20 14:21 Temperature Temperature Source Pulse Rate 63 60 61 Pulse Rate from SpO2 Sensor Respiratory Rate 21 21 21 Blood Pressure 144/73 H Blood Pressure Mean 112 Pulse Oximetry Oxygen Delivery Method Sepsis Recent Fever Within 48 Hours Sepsis New/Unexplained Change in Mental Status Sepsis Action Taken by Nursing 03/12/20 14:30 03/12/20 14:40 03/12/20 14:51 Temperature Temperature Source Pulse Rate 61 68 64 Pulse Rate from SpO2 Sensor Respiratory Rate 19 15 19 Blood Pressure 122/70 Blood Pressure Mean 88 Pulse Oximetry Oxygen Delivery Method Sepsis Recent Fever Within 48 Hours Sepsis New/Unexplained Change in Mental Status Sepsis Action Taken by Nursing 03/12/20 15:00 03/12/20 15:10 03/12/20 15:21 Temperature Temperature Source Pulse Rate 59 L 62 62 Pulse Rate from SpO2 Sensor Respiratory Rate 19 16 18 Blood Pressure 127/66 Blood Pressure Mean 89 Pulse Oximetry Oxygen Delivery Method Sepsis Recent Fever Within 48 Hours Sepsis New/Unexplained Change in Mental Status Sepsis Action Taken by Nursing 03/12/20 15:30 03/12/20 15:40 03/12/20 15:51 Temperature Temperature Source Pulse Rate 64 62 62 Pulse Rate from SpO2 Sensor Respiratory Rate 17 16 19 Blood Pressure 134/71 Blood Pressure Mean 95 Pulse Oximetry Oxygen Delivery Method Sepsis Recent Fever Within 48 Hours Sepsis New/Unexplained Change in Mental Status Sepsis Action Taken by Nursing Laboratory Data Result diagrams: 03/12/20 11:22 03/12/20 11:22 Lab Results 03/12/20 03/12/20 03/12/20 Range/Units 11:22 11:22 13:41 WBC 6.75 (4.8-10.8) K/uL RBC 4.26 (4.2-5.4) M/uL Hgb 11.9 L (12.0-16.0) g/dL Hct 38.1 (37-47) % MCV 89.4 (80-100) fL MCH 27.9 (25-34) pg MCHC 31.2 L (32-36) g/dL RDW Std Deviation 47.4 H (36.4-46.3) fL RDW Coeff of Beverley 14.6 H (11.5-14.5) % Plt Count 232 (130-400) K/uL MPV 9.5 (7.4-10.4) fL Immature Gran % (Auto) 0.7 % Neut % (Auto) 72.8 % Lymph % (Auto) 12.7 % Meriwether % (Auto) 8.4 % Eos % (Auto) 5.3 % Baso % (Auto) 0.1 % Neut # (Auto) 4.90 (1.4-6.5) K/uL Lymph # (Auto) 0.86 L (1.2-3.4) K/uL Mer[place]ether # (Auto) 0.57 (0.11-0.59) K/uL Eos # (Auto) 0.36 (0-0.5) K/uL Baso # (Auto) 0.01 (0-0.2) K/uL Immature Gran # (Auto) 0.05 H (0.00-0.02) K/uL Sodium 141 (136-145) mmol/L Potassium 3.6 (3.5-5.1) mmol/L Chloride 99 (98-107) mmol/L Carbon Dioxide 36 H (21-32) mmol/L Anion Gap 6.0 (3-11) BUN 19 H (7-18) mg/dl Creatinine 1.70 H (0.6-1.2) mg/dl Est Cr Clr Drug Dosing 29.4 ml/min Est GFR ( Amer) 31.3 Est GFR (Non-Af Amer) 27.0 BUN/Creatinine Ratio 11.4 (10-20) Glucose 165 H (70-99) mg/dl Calcium 10.4 H (8.5-10.1) mg/dl Magnesium 1.5 L (1.8-2.4) mg/dl Total Bilirubin 0.5 (0.2-1) mg/dl AST 18 (15-37) U/L ALT 33 (12-78) U/L Alkaline Phosphatase 171 H (45-117) U/L Troponin I < 0.015 (0-0.045) ng/ml Total Protein 6.5 (6.4-8.2) gm/dl Albumin 2.7 L (3.4-5.0) gm/dl Globulin 3.8 (2.5-4.0) gm/dl Albumin/Globulin Ratio 0.7 L (0.9-2) TSH 3.920 (0.300-4.500) uIu/ml Urine Color Yellow Urine Appearance Cloudy A (Clear) Urine pH 7.0 (4.5-7.5) Ur Specific Blunt 1.018 (1.000-1.030) Urine Protein Negative (Negative) Urine Glucose (UA) Negative (Negative) Urine Ketones Negative (Negative) Urine Blood Negative (Negative) Urine Nitrite Positive A (Negative) Urine Bilirubin Negative (Negative) Urine Urobilinogen Negative (Negative) Ur Leukocyte Esterase 2+ H (Negative) Urine WBC (Auto) >30 H (0-5) /hpf Urine RBC (Auto) 0-4 (0-4) /hpf U Hyaline Cast (Auto) 10-30 H (0-5) /lpf U Epithel Cells (Auto) 5-10 H (0-5) /lpf Urine Bacteria (Auto) 4+ H (Negative) Administered Medications Sodium Chloride (Nss 1000ml) 1,000 mls @ 125 mls/hr IV .Q8H [facility] Stop: 03/12/20 19:14 Last Admin: 03/12/20 11:39 Dose: 125 mls/hr Documented by: [id number] Discontinued Medications Acetaminophen (Acetaminophen 500 Mg Tab) 1,000 mg PO NOW STA Stop: 03/12/20 11:13 Last Admin: 03/12/20 11:57 Dose: 1,000 mg Documented by: [id number] Acetaminophen (Acetaminophen 500 Mg Tab) Confirm Administered Dose 1,000 mg .ROUTE .STK-MED ONE Stop: 03/12/20 11:57 Last Admin: 03/12/20 12:22 Dose: Not Given Documented by: [id number] Magnesium Sulfate/Dextrose (Magnesium Sulfate / D5w) 1 gm in 100 mls @ 100 mls/hr IV NOW STA Stop: 03/12/20 14:25 Last Infusion: 03/12/20 15:08 Dose: 0 mls/hr Documented by: [id number] Admin: 03/12/20 14:02 Dose: 100 mls/hr Documented by: [id number] Ertapenem 1,000 mg/ Sodium (Chloride) 60 mls @ 100 mls/hr IV NOW STA Stop: 03/12/20 15:57 Last Admin: 03/12/20 15:51 Dose: 100 mls/hr Documented by: [id number] Discharge Plan Visit Data Chief Complaint: Fall Stated Complaint: syncope/ fall, back pain ED Provider: Mynor Noonan Discharge Problem: Syncope and collapse, Fall, Right anterior knee pain Forms Stand Alone Forms: [facility] [employer] Prescriptions Prescriptions: No Action thiamine HCl (vitamin B1) [Vitamin B-1] 50 mg tablet 50 mg PO QAM RF: 0 Lantus U-100 Insulin 100 unit/mL solution 28 units subcut QAM RF: 0 nitrofurantoin monohyd/m-cryst [Macrobid] 100 mg capsule 100 mg PO BID 7 Days Qty: 14 RF: 0 (DME) compr.stocking,knee,long,large Misc See Rx Instructions .ROUTE .MEDSUPPLY Qty: 2 RF: 0 furosemide 20 mg tablet 20 mg PO DAILY Qty: 15 RF: 2 diphenhydramine HCl [Benadryl] 25 mg capsule 25 mg PO Q6 PRN (Reason: Itching) RF: 0 benzonatate [Tessalon Perles] 100 mg capsule 100 mg PO TID PRN (Reason: Cough) RF: 0 Caltrate 600-D Plus Minerals 600 mg calcium- 800 unit-50 mg tablet 1 tab PO BID RF: 0 latanoprost [Xalatan] 0.005 % Drops 1 drp OPB HS RF: 0 trazodone 50 mg Tablet 50 mg PO HS RF: 0 levothyroxine 88 mcg Tablet 88 mcg PO QAM RF: 0 simvastatin 20 mg Tablet 20 mg PO HS RF: 0 folic acid 1 mg Tablet 1 mg PO QAM RF: 0 escitalopram oxalate 10 mg Tablet 10 mg PO QAM RF: 0 acetaminophen [Tylenol Extra Strength] 500 mg tablet 500 mg PO TID RF: 0 Eliquis 2.5 mg Tablet 2.5 mg PO BID RF: 0 ipratropium-albuterol 0.5 mg-3 mg(2.5 mg base)/3 mL Solution For Nebulization 3 ml INHALATION TID RF: 0 Artificial Tears (cmc) 1 % Drops 1 drp OPB QID RF: 0 buspirone [BuSpar] 15 mg Tablet 15 mg PO BID RF: 0 insulin lispro [Humalog U-100 Insulin] 100 unit/mL solution 1 sliding scale dose subcut AC RF: 0 cetirizine 10 mg Tablet 5 mg PO QAM RF: 0
[2020-03-12] MEDS ORDERED: SODIUM CHLORIDE 0.9% 1000ML 1,000 ML IV SCH (11:15)
[2020-03-12 11:32] LABS: Basophils # (auto) 0.01 K/uL (0-0.2); Basophils % (auto) 0.1 %; Eosinophils # (auto) 0.36 K/uL (0-0.5); Eosinophils % (auto) 5.3 %; Hematocrit (blood only) 38.1 % (37-47); Hemoglobin 11.9 g/dL (12.0-16.0); Immature Granulocytes # (auto) 0.05 K/uL (0.00-0.02); Immature Granulocytes % (auto) 0.7 %; Lymphocytes # (auto) 0.86 K/uL (1.2-3.4); Lymphocytes % (auto) 12.7 %; Mean Corpuscular Hemoglobin 27.9 pg (25-34); Mean Corpuscular Hgb Conc 31.2 g/dL (32-36); Mean Corpuscular Volume 89.4 fL (80-100); Mean Platelet Volume 9.5 fL (7.4-10.4); Monocytes # (auto) 0.57 K/uL (0.11-0.59); Monocytes % (auto) 8.4 %; Neutrophils % (auto) 72.8 %; Platelet Count 232 K/uL (130-400); RDW Coefficient of Variation 14.6 % (11.5-14.5); RDW Standard Deviation 47.4 fL (36.4-46.3); Red Blood Count 4.26 M/uL (4.2-5.4); White Blood Count 6.75 K/uL (4.8-10.8)
[2020-03-12 11:48] LABS: Alanine Aminotransferase 33 U/L (12-78); Albumin Level 2.7 gm/dl (3.4-5.0); Aspartate Aminotransferase 18 U/L (15-37); BUN Creatinine Ratio 11.4 (10-20); Blood Urea Nitrogen 19 mg/dl (7-18); Calcium 10.4 mg/dl (8.5-10.1); Carbon Dioxide 36 mmol/L (21-32); Chloride 99 mmol/L (98-107); Creatinine Clr Calc Pharmacy 29.4 ml/min; Est GFR (African American) 31.3; Glucose 165 mg/dl (70-99); Magnesium 1.5 mg/dl (1.8-2.4); Potassium 3.6 mmol/L (3.5-5.1); Sodium 141 mmol/L (136-145)
[2020-03-12] MEDS ORDERED: ACETAMINOPHEN 500 MG TAB ONE (11:56)
[2020-03-12 11:59] LABS: Albumin Globulin Ratio 0.7 (0.9-2); Alkaline Phosphatase 171 U/L (45-117); Bilirubin,Total 0.5 mg/dl (0.2-1); Globulin 3.8 gm/dl (2.5-4.0); Total Protein 6.5 gm/dl (6.4-8.2); Troponin I < 0.015 ng/ml (0-0.045)
--- NOTE | 2020-03-12 12:14 | CT Scan Report ---
CT SCAN OF THE HEAD NO CONTRAST CLINICAL HISTORY: Syncope. COMPARISON STUDY: 11/20/2019 FINDINGS: No intra or extra-axial mass lesions are visualized. There is no CT evidence of acute cortical infarc tion. There is no evidence of midline shift. There is no evidence of acute hemorrhage. There is basal ganglial mineralization. There are patchy white matter hypodensities likely on a small vessel basis. No calvarial fractures are visualized. There is minor paranasal sinus mucosal thickening. There is n o evidence of acute sinusitis. IMPRESSION: No acute intracranial findings. ACT 112: Negative or not required by law. Electronically signed by: Deuce Hanson M.D. 03/12/2020 11:55 AM
--- NOTE | 2020-03-12 12:15 | XRay Report ---
XR knee RT 2V routine CLINICAL HISTORY: Right knee pain status post trauma COMPARISON: None. DISCUSSION: No acute fractures or dislocations are visualized. There are advanced osteoarthritic de la vega ges present with near total medial joint compartment cartilaginous loss. IMPRESSION: 1. No acute fractures or dislocations 2. Advanced osteoarthritic changes ACT 112: Negative or not required by law. Electronically signed by: Deuce Hanson M.D. 03/12/2020 12:04 PM
--- NOTE | 2020-03-12 12:19 | XRay Report ---
XR chest 1V portable HISTORY: 84 years-old Female syncope chest trauma status post fall COMPARISON: Chest radiograph 11/20/2019 TECHNIQUE: Semierect portable AP view of the chest FINDINGS: Cardiac silhouette is enlarged. Calcified plaque of the thoracic aortic arch. No pneumothorax, pleura l effusion, airspace consolidation or overt pulmonary edema. Degenerative changes of the shoulders an d spine. No acute rib fracture identified. IMPRESSION: Cardiomegaly without acute process. ACT 112: Negative or not required by law. The above report was generated using voice recognition software. It may contain grammatical, syntax o r spelling errors. Electronically signed by: Edilberto Youngblood M.D. 03/12/2020 12:18 PM
--- NOTE | 2020-03-12 12:27 | Electrocardiogram Report ---
Test Reason : Blood Pressure : / mmHG Vent. Rate : 066 BPM Atrial Rate : 064 BPM P-R Int : 000 ms QRS Dur : 098 ms QT Int : 374 ms P-R-T Axes : 000 -13 119 degrees QTc Int : 392 ms Normal sinus rhythm Low voltage QRS Nonspecific T wave abnormality Abnormal ECG When compared with ECG of 20-NOV-2019 07:52, QRS axis Shifted right Confirmed by Bang Chahal ([id number]) on 03/12/2020 12:27:31 PM Referred By: Confirmed By:Bang Chahal
[2020-03-12] MEDS ORDERED: MAGNESIUM SULFATE / D5W 1 GM/100 ML BAG IV STA (13:26)
[2020-03-12 14:09] LABS: Appearance Urine Cloudy (Clear); Bacteria Urine Automated 4+ (Negative); Bilirubin Urine Negative (Negative); Blood Urine Negative (Negative); Color Urine Yellow; Glucose Urine UA Negative (Negative); Ketones Urine Negative (Negative); Leukocyte Esterase Urine 2+ (Negative); Nitrite Urine Positive (Negative); Protein Urine Negative (Negative); RBC Urine Automated 0-4 /hpf (0-4); Specific Gravity Urine 1.018 (1.000-1.030); Urobilinogen Urine Negative (Negative); WBC Urine Automated >30 /hpf (0-5)
[2020-03-12] MEDS ORDERED: cefTRIAXone SODIUM 1,000 MG/50 ML BAG IV STA (15:10)
[2020-03-12] MEDS ORDERED: ERTAPENEM SODIUM 1,000 MG in SODIUM CHLORIDE 0.9% 50 ML IV STA (15:22)
--- NOTE | 2020-03-12 17:48 | History & Physical Report ---
Date of Service March 12, 2020 Assessment & Plan (1) Unwitnessed fall: Suspect secondary to UTI and sedentary state due to lockdown as below. PT/OT evals Monitor for arrhythmia on telemetry given unclear history. Last fall end of October per personal care facility. (2) UTI (urinary tract infection): ?increased frequency although patient history not particularly reliable. Agree with treatment in setting of pre-syncope. Contact isolation precautions due to history of ESBL Continue Rx with ertapenem 1g IV daily (3) Leg swelling: Sage Lee. Suspect secondary to lack of mobility and venous insufficiency. We will not increase Lasix dosing for now as no pulmonary edema to suggest CHF as cause and no proteinuria on UA. (4) Type 2 diabetes mellitus: HbA1c 8.8 in September, repeat with a.m. labs. Home regimen Lantus 28 units SQ every morning with Humalog correction factor. Switch to Lantus 10 units twice daily, NovoLog aim 100-140, correction 30 g/dL/unit, carb ratio 1 unit / 10 g (5) Hypomagnesemia: Magnesium sulfate 1 g IV given in ER. Repeat magnesium level with a.m. labs. (6) Hypercalcemia: Discontinue calcium supplementation. Repeat BMP with a.m. labs (7) Hypothyroidism: TSH WNL Continue levothyroxine 88 mcg p.o. every morning (8) Anxiety and depression: Continue S-Citalopram 10 mg p.o. every morning, buspirone 15 mg p.o. twice daily, trazodone 50 mg p.o. at bedtime (9) History of pulmonary embolism: (10) DVT prophylaxis: Eliquis 2.5 mg p.o. twice daily Admission and Anticipated Discharge Date Admission Date: March 13, 2020 History of Present Illness Chief Complaint: Fall, UTI Primary Care Provider: [facility] Dana Ruvalcaba is an 84 year old female who presents to the ER after an unwitnessed fall at her personal-correction. The patient does not remember much about the event. She thinks she went into the bathroom but does not remember the actual fall. She thinks he lost consciousness and woke up on the floor. She is orientated x3 although has ongoing short-term memory loss and unable to provide much of a history. Her daughter at bedside confirms she is close to her baseline. She does note her mother has been much less mobile due to the lockdown from coronavirus. The patient denies any fevers or chills. She has urge urinary incontinence at baseline but thinks this may be worse than usual. Discussed history with Madai Keen (Personal care medical aid @ [facility]). Was not there at the time but reportedly patient was in the hallway on her way to the bathroom when she called out. Had unwitnessed fall. Not noted to have loss of consciousness. Aid was in the hallway so was close by. Last fall end of October - when she was unwell with pneumonia. She had been complaining of burning, frequent urination and confusion. Urine culture was taken on February 19 which grew ESBL E. coli (notably resistant to Zosyn). Treated with nitrofurantoin from February 28-. Not taken diphenhydramine since beginning of January therefore did not contribute towards fall. Allergies Allergy/AdvReac Type Severity Reaction Status Date / Time doxycycline Allergy Mild Rash Verified 03/12/20 13:18 oxybutynin Allergy Mild Rash Verified 03/12/20 13:18 codeine Allergy Unknown Unknown Verified 03/12/20 13:18 fluticasone Allergy Unknown Unknown Verified 03/12/20 13:18 salmeterol Allergy Unknown Unknown Verified 03/12/20 13:18 Sulfa (Sulfonamide Allergy Unknown Unknown Verified 03/12/20 13:18 Antibiotics) troleandomycin Allergy Unknown Unknown Verified 03/12/20 13:18 Macrolide Antibiotics Allergy Unknown Verified 03/12/20 13:18 milk Allergy noted as Verified 03/12/20 13:18 "milk protein extract" allergy Home Medications Home Medications Medication Instructions Recorded Confirmed Type escitalopram oxalate 10 mg PO QAM 08/04/18 03/12/20 History folic acid 1 mg PO QAM 08/04/18 03/12/20 History latanoprost [Xalatan] 1 drp OPB HS 08/04/18 03/12/20 History levothyroxine 88 mcg PO QAM 08/04/18 03/12/20 History simvastatin 20 mg PO HS 08/04/18 03/12/20 History trazodone 50 mg PO HS 08/04/18 03/12/20 History acetaminophen 500 mg tablet 500 mg PO TID 12/16/18 03/12/20 History calcium 600 mg-D3 800 unit-mag11 1 tab PO BID tab 02/10/19 03/12/20 History 50 hv-cnax-axniac-cristofer-s.borat tablet insulin lispro 100 unit/mL 1 sliding scale dose SUBCUT AC ml 02/10/19 03/12/20 History subcutaneous solution Eliquis 2.5 mg PO BID 03/13/19 03/12/20 History insulin glargine 100 unit/mL 28 units SUBCUT QAM ml 03/23/19 03/12/20 History subcutaneous solution Artificial Tears (cmc) 1 drp OPB QID 06/04/19 03/12/20 History ipratropium-albuterol 3 ml INHALATION TID 06/04/19 03/12/20 History thiamine HCl (vitamin B1) 50 mg 50 mg PO QAM 08/03/19 03/12/20 History tablet cetirizine 5 mg PO QAM 10/25/19 03/12/20 History benzonatate 100 mg capsule 100 mg PO TID PRN 01/06/20 03/12/20 History diphenhydramine HCl 25 mg capsule 25 mg PO Q6 PRN 01/06/20 03/12/20 History compr.stocking,knee,long,large #2 ea 02/14/20 02/14/20 Rx furosemide 20 mg tablet 20 mg PO DAILY #15 tab 02/14/20 03/12/20 Rx nitrofurantoin 100 mg PO BID 7 Days #14 cap 02/27/20 03/12/20 Rx monohydrate/macrocrystals 100 mg capsule buspirone [BuSpar] 15 mg PO BID 03/12/20 03/12/20 History Past Med/Surg History Medical History (Updated 03/13/20 @ 10:13 by Stephane Rios MD) Allergic rhinitis Anxiety and depression Arthritis Asthma Cardiomyopathy CKD (chronic kidney disease), stage III Dementia Dyslipidemia Endometrioid adenocarcinoma of uterus History of DVT (deep vein thrombosis) (2014) "LL2014" History of pulmonary embolism (2014) "2014" Hypertension Hypothyroidism Hypothyroidism Type 2 diabetes mellitus Urinary incontinence Vertigo Vitamin D deficiency Surgical History H/O cataract extraction History of robot-assisted laparoscopic hysterectomy (10/2018) 11/10/18 - with BSO with B/L SLN Biopsy and Right pelvic lymph node dissection and cystoscopy (Dr. Buffy Mayo in [place]) S/P appendectomy as a child S/P foot surgery (2004) S/P tonsillectomy and adenoidectomy Family History Mother , Passed in 80s/90's of old age No problems noted. Father , Passed in 70's of black lung complications ([place]) Lung disease Sister , Passed in 80's of unknown No problems noted. Sister , Passed in 60's of unknown No problems noted. Brother , Passed in 60's of unknown (alcoholic) Hypertension Brother , Passed in late 70's of unknown Lung disease Daughter No problems noted. Son No problems noted. Son No problems noted. Son No problems noted. Denies family history of Ovarian cancer Prostate cancer Breast cancer Lung cancer Colorectal cancer Social History Smoking Status: Never smoker Second Hand Exposure: No; Do You Dip or Chew Tobacco: No; Tobacco Cessation Education Requested by Patient: No Hx Alcohol Use: No Hx Substance Use: No Preferred Language: Jordanian Communication Ability: Effective Visual Impairment: No Limitations Hearing Ability: Normal Crane Chaser Required: No Beliefs That Will Affect Care: None marital status: / Current Living Situation: Personal Care Facility Current Living Situation Comment: [facility] current occupational status: retired 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 She was started on Lasix on February 02 and recently her PCP was contacted and plan was to double her dose to 40mg PO daily. No known heart failure. Physical Exam Constitutional: well developed and well nourished; no acute distress Eyes: + anicteric sclerae; normal pupil size ENMT: external ear and nose normal, oropharynx normal Neck: trachea midline, no thyromegaly Respiratory: normal respiratory effort, lungs clear to auscultation Cardiovascular: Rate/Rhythm: regular rate and regular rhythm Heart Sounds: no murmur Vessels: no JVD Extremities: normal capillary refill and + pedal edema (3+ to mid thighs); no calf tenderness Gastrointestinal (Abdomen): Inspection/Auscultation: + abdomen distended and normal bowel sounds Percussion/Palpation: + abdomen tender (Generalized) and abdomen soft; no guarding and abdomen not rigid Musculoskeletal: no cyanosis or clubbing, extremities motor strength 5/5 Skin: no rashes, warm and dry (No cellulitis) Neurologic: moves all extremities and awake; no focal motor deficits and not confused (short term memory loss at baseline) Psychiatric: A+Ox3, euthymic affect Genitourinary: + CVA tenderness (Bilateral) Lymphatic: no cervical or axillary lymphadenopathy Results & Data Results & Data ([facility]) Vital Signs (Past 12 Hours) Vital Signs Temp Pulse Resp BP Pulse Ox 03/12/20 15:51 62 19 03/12/20 15:40 62 16 03/12/20 15:30 64 17 134/71 03/12/20 15:21 62 18 03/12/20 15:10 62 16 03/12/20 15:00 59 L 19 127/66 03/12/20 14:51 64 19 03/12/20 14:40 68 15 03/12/20 14:30 61 19 122/70 03/12/20 14:21 61 21 03/12/20 14:10 60 21 03/12/20 14:00 63 21 144/73 H 03/12/20 13:50 70 03/12/20 13:41 68 20 03/12/20 13:35 96 H 03/12/20 13:30 156/74 H 03/12/20 13:20 98 03/12/20 13:11 96 03/12/20 13:00 67 16 145/74 H 96 03/12/20 12:50 61 19 96 03/12/20 12:41 62 21 97 03/12/20 12:30 63 18 167/75 H 95 03/12/20 12:20 64 21 96 03/12/20 12:11 62 19 97 03/12/20 12:03 64 14 96 03/12/20 12:02 65 17 167/76 H 93 03/12/20 12:00 61 19 03/12/20 11:31 65 17 96 03/12/20 11:20 69 17 94 03/12/20 11:10 64 22 94 03/12/20 11:05 62 20 95 03/12/20 11:03 36.5 C 66 16 165/59 H 94 03/12/20 11:00 62 20 165/59 H 94 Diagnostic Findings XR chest 1V portable IMPRESSION: Cardiomegaly without acute process. CT SCAN OF THE HEAD NO CONTRAST IMPRESSION: No acute intracranial findings. XR knee RT 2V routine IMPRESSION: 1. No acute fractures or dislocations 2. Advanced osteoarthritic changes ECG Indication: abdominal pain and other (Fall) Rate (beats per minute): 66 Rhythm: normal sinus Findings: no acute ischemic change Comparison ECG Date: from (November 20, 2019) Change: the following changes noted (QRS axis shifted right) Code Status & VTE Plan Code Status DNR. Otherwise all treatment outside of cardiac arrest. VTE Prophylaxis Plan VTE Prophylaxis will be ordered: Yes PG Care Time/CCT Total # of Minutes Spent Total Time Spent with Patient: Total time spent is greater than 50% in coordination of care (as documented) at patient's floor/unit and/or counseling patient: Coding Level of Care Code 60360 OBS Care - Level 3 Diagnoses Unwitnessed fall R29.6 UTI (urinary tract infection) N39.0 Leg swelling M79.89 Type 2 diabetes mellitus E11.9; Z79.4 Diabetes mellitus complication status: without complication Diabetes mellitus intermediate frame tender insulin use: with intermediate frame tender use Hypomagnesemia E83.42 Hypercalcemia E83.52 Hypothyroidism E03.9 Hypothyroidism type: unspecified Anxiety and depression F41.9; F32.9 History of pulmonary embolism Z86.711 DVT prophylaxis Z29.9 (1) Type 2 diabetes mellitus Diabetes mellitus complication status: without complication Diabetes mellitus residential insulin use: with residential use Qualified Code(s): E11.9 - Type 2 diabetes mellitus without complications; Z79.4 - senior living (current) use of insulin (2) Hypothyroidism Hypothyroidism type: unspecified Qualified Code(s): E03.9 - Hypothyroidism, unspecified
[2020-03-12] MEDS ORDERED: GLUCOSE 10 TABS/TUBE PO PRN (19:10)
[2020-03-12] MEDS ORDERED: GLUCAGON FOR INJ 1 MG VIAL SQ PRN (19:10)
[2020-03-12] MEDS ORDERED: GLUCOSE 40% GEL 15 GM TUBE PO PRN (19:10)
[2020-03-12] MEDS ORDERED: ACETAMINOPHEN 325 MG TAB PO PRN (19:10)
[2020-03-12] MEDS ORDERED: DEXTROSE 50% 50 ML SYRINGE IV PRN (19:10)
[2020-03-12] MEDS ORDERED: CARBOHYDRATES FOR HYPOGLYCEMIA PO PRN (19:10)
[2020-03-12] MEDS: ALBUT/IPRATROP 3MG/0.5MG NEB 3 ML VIAL INH SCH (19:42)
[2020-03-12] MEDS ORDERED: CALCIUM 600MG + VIT D 400 IU TAB PO SCH (21:00)
[2020-03-12] MEDS: APIXABAN 2.5 MG TAB PO SCH (21:20)
[2020-03-12] MEDS: BusPIRone 15 MG TAB PO SCH (21:20)
[2020-03-12] MEDS: LATANOPROST 0.005% OP SOLN 2.5 ML BTL OPB SCH (21:23)
[2020-03-12] MEDS: ACETAMINOPHEN 500 MG TAB PO SCH (21:23)
[2020-03-12] MEDS: SIMVASTATIN 20 MG TAB PO SCH (21:24)
[2020-03-12] MEDS: ARTIFICIAL TEARS OP SCH (21:24)
[2020-03-12] MEDS: INSULIN ASPART 100 UNITS/ML 3 ML PEN SC SCH (21:25)
[2020-03-12] MEDS: TRAZODONE HCL 50 MG TAB PO SCH (21:25)
[2020-03-12] MEDS: INSULIN GLARGINE SOLOSTAR 100 UNITS/ML 3 ML PEN SC SCH (21:26)
[2020-03-13] MEDS ORDERED: MICONAZOLE NITRATE POWDER 43 GM EXT PRN (00:14)
[2020-03-13] MEDS: LEVOTHYROXINE SODIUM 88 MCG TABLET PO SCH (05:44)
[2020-03-13] MEDS: ALBUT/IPRATROP 3MG/0.5MG NEB 3 ML VIAL INH SCH ×3 (07:00→19:33)
[2020-03-13 07:23] LABS: Hematocrit (blood only) 36.3 % (37-47); Hemoglobin 11.2 g/dL (12.0-16.0); Mean Corpuscular Hemoglobin 27.5 pg (25-34); Mean Corpuscular Hgb Conc 30.9 g/dL (32-36); Mean Corpuscular Volume 89.2 fL (80-100); Mean Platelet Volume 9.6 fL (7.4-10.4); Platelet Count 244 K/uL (130-400); RDW Coefficient of Variation 14.3 % (11.5-14.5); RDW Standard Deviation 46.9 fL (36.4-46.3); Red Blood Count 4.07 M/uL (4.2-5.4); White Blood Count 7.36 K/uL (4.8-10.8)
[2020-03-13] MEDS: ESCITALOPRAM OXALATE 10 MG TAB PO SCH (07:55)
[2020-03-13] MEDS: CETIRIZINE HCL 10 MG TABLET PO SCH (07:55)
[2020-03-13] MEDS: FUROSEMIDE 20 MG TAB PO SCH (07:55)
[2020-03-13] MEDS: FOLIC ACID 1 MG TAB PO SCH (07:56)
[2020-03-13] MEDS: APIXABAN 2.5 MG TAB PO SCH ×2 (07:56→22:08)
[2020-03-13] MEDS: THIAMINE HCL 50 MG TABLET PO SCH (07:56)
[2020-03-13] MEDS: BusPIRone 15 MG TAB PO SCH ×2 (07:56→22:08)
[2020-03-13 07:57] LABS: Albumin Level 2.4 gm/dl (3.4-5.0); BUN Creatinine Ratio 11.5 (10-20); Calcium 9.7 mg/dl (8.5-10.1); Creatinine Clr Calc Pharmacy 31.8 ml/min; Est GFR (Non-African American) 30.2; Magnesium 1.6 mg/dl (1.8-2.4); Potassium 3.3 mmol/L (3.5-5.1)
[2020-03-13] MEDS: ACETAMINOPHEN 500 MG TAB PO SCH ×3 (07:57→22:11)
[2020-03-13 08:00] LABS: Albumin Globulin Ratio 0.7 (0.9-2); Bilirubin,Total 0.6 mg/dl (0.2-1); Globulin 3.5 gm/dl (2.5-4.0); Total Protein 5.9 gm/dl (6.4-8.2)
[2020-03-13] MEDS: ARTIFICIAL TEARS OP SCH ×4 (08:01→22:07)
[2020-03-13] MEDS: INSULIN GLARGINE SOLOSTAR 100 UNITS/ML 3 ML PEN SC SCH ×2 (08:08→22:09)
[2020-03-13] MEDS: INSULIN ASPART 100 UNITS/ML 3 ML PEN SC SCH ×4 (08:12→22:09)
[2020-03-13 08:40] LABS: Estimated Average Glucose 226 mg/dl; Hemoglobin A1C 9.5 % (4.5-5.6)
--- NOTE | 2020-03-13 15:55 | Hospitalist Progress Note ---
Date of Service March 13, 2020 Assessment & Plan (1) Unwitnessed fall: Suspect secondary to UTI and sedentary state due to lockdown as below. - PT/OT evals - Monitor for arrhythmia on telemetry given unclear history. (2) UTI (urinary tract infection): Agree with treatment in setting of pre-syncope. - Contact isolation precautions due to history of ESBL - Continue ertapenem (3) Leg swelling: Suspect secondary to lack of mobility and venous insufficiency. - RUSSELL anderson, SCDs. - We will not increase Lasix dosing for now as no pulmonary edema to suggest CHF as cause and no proteinuria on UA. (4) Type 2 diabetes mellitus: HbA1c 8.8% in September; 9.5% this admission. Home regimen Lantus 28 units SQ every morning with Humalog correction factor. - Switch to Lantus 10 units twice daily, NovoLog aim 100-140, correction 30 g/dL/unit, carb ratio 1 unit / 10 g. - Sugars good today. (5) Hypothyroidism: TSH was 3.9 this admission. - Continue levothyroxine 88 mcg p.o. every morning (6) Anxiety and depression: Tearful affect today. - Continue escitalopram, buspirone, and trazodone (7) History of pulmonary embolism: On apixaban 2.5 mg PO BID (8) DVT prophylaxis: Eliquis 2.5 mg p.o. twice daily Admission and Anticipated Discharge Date Admission Date: March 12, 2020 Subjective No focal complaints. Very tearful as she does not know how she got to the hospital. Reports no fevers/chills, chest pain, shortness of breath, abdominal pain, nausea, or vomiting. Physical Exam Constitutional: WD/WN, vitals as above Eyes: EOM intact bilaterally; no conjunctival abnormality ENMT: external ear and nose normal, oropharynx normal Neck: trachea midline, no thyromegaly normal visual inspection Respiratory: normal respiratory effort, lungs clear to auscultation no respiratory distress Cardiovascular: RRR, no murmur, no edema Gastrointestinal (Abdomen): Inspection/Auscultation: abdomen normal to inspection; abdomen not distended Musculoskeletal: no cyanosis or clubbing, extremities motor strength 5/5 Skin: no rashes, warm and dry Neurologic: moves all extremities and awake Psychiatric: Orientation: alert, oriented to person and cooperative; + not oriented to place and + not oriented to time Results & Data Results & Data ([facility]) Vital Signs (Past 12 Hours) Vital Signs Temp Pulse Pulse Resp BP BP Pulse Ox 03/13/20 15:47 37.1 C 71 18 145/73 H 90 03/13/20 14:58 73 03/13/20 13:24 66 18 95 03/13/20 11:21 36.8 C 77 18 119/56 L 91 03/13/20 09:26 63 03/13/20 07:20 36.6 C 69 18 137/67 96 03/13/20 07:00 62 18 96 03/13/20 05:14 37.0 C 81 20 140/78 95 PG Care Time/CCT Total # of Minutes Spent Total Time Spent with Patient: Total time spent is greater than 50% in coordination of care (as documented) at patient's floor/unit and/or counseling patient: Coding Level of Care Code 99207 Subseq Hosp Care Lvl 2 Diagnoses Unwitnessed fall R29.6 UTI (urinary tract infection) N39.0 Leg swelling M79.89 Type 2 diabetes mellitus E11.9; Z79.4 Diabetes mellitus long-term insulin use: with long term care social worker use Diabetes mellitus complication status: without complication Hypothyroidism E03.9 Hypothyroidism type: unspecified Anxiety and depression F41.9; F32.9 History of pulmonary embolism Z86.711 DVT prophylaxis Z29.9 (1) Type 2 diabetes mellitus Diabetes mellitus long term care social worker insulin use: with long term care social worker use Diabetes mellitus complication status: without complication Qualified Code(s): E11.9 - Type 2 diabetes mellitus without complications; Z79.4 - marine oil terminal superintendent (current) use of insulin (2) Hypothyroidism Hypothyroidism type: unspecified Qualified Code(s): E03.9 - Hypothyroidism, unspecified
[2020-03-13] MEDS: ERTAPENEM SODIUM 1,000 MG in SODIUM CHLORIDE 0.9% 50 ML IV SCH (16:21)
[2020-03-13] MEDS: TRAZODONE HCL 50 MG TAB PO SCH (22:08)
[2020-03-13] MEDS: SIMVASTATIN 20 MG TAB PO SCH (22:11)
[2020-03-13] MEDS: LATANOPROST 0.005% OP SOLN 2.5 ML BTL OPB SCH (22:11)
[2020-03-14] MEDS: LEVOTHYROXINE SODIUM 88 MCG TABLET PO SCH (05:59)
[2020-03-14 06:49] LABS: Hematocrit (blood only) 36.1 % (37-47); Hemoglobin 11.3 g/dL (12.0-16.0); Mean Corpuscular Hemoglobin 27.6 pg (25-34); Mean Corpuscular Hgb Conc 31.3 g/dL (32-36); Mean Corpuscular Volume 88.3 fL (80-100); Mean Platelet Volume 9.6 fL (7.4-10.4); Platelet Count 251 K/uL (130-400); RDW Coefficient of Variation 14.2 % (11.5-14.5); RDW Standard Deviation 45.8 fL (36.4-46.3); Red Blood Count 4.09 M/uL (4.2-5.4); White Blood Count 6.54 K/uL (4.8-10.8)
[2020-03-14] MEDS: ALBUT/IPRATROP 3MG/0.5MG NEB 3 ML VIAL INH SCH ×3 (07:06→19:36)
[2020-03-14 07:21] LABS: Calcium 9.2 mg/dl (8.5-10.1); Creatinine Clr Calc Pharmacy 33.3 ml/min; Magnesium 1.5 mg/dl (1.8-2.4); Potassium 3.1 mmol/L (3.5-5.1)
[2020-03-14] MEDS: MAGNESIUM SULFATE / D5W 1 GM/100 ML BAG IV SCH ×2 (08:43→11:23)
[2020-03-14] MEDS: POTASSIUM CHLORIDE 10 MEQ TABCR PO SCH ×2 (08:45→20:20)
[2020-03-14] MEDS: THIAMINE HCL 50 MG TABLET PO SCH (08:45)
[2020-03-14] MEDS: ACETAMINOPHEN 500 MG TAB PO SCH ×3 (08:46→20:21)
[2020-03-14] MEDS: CETIRIZINE HCL 10 MG TABLET PO SCH (08:46)
[2020-03-14] MEDS: APIXABAN 2.5 MG TAB PO SCH ×2 (08:46→20:18)
[2020-03-14] MEDS: ESCITALOPRAM OXALATE 10 MG TAB PO SCH (08:47)
[2020-03-14] MEDS: FOLIC ACID 1 MG TAB PO SCH (08:47)
[2020-03-14] MEDS: FUROSEMIDE 20 MG TAB PO SCH (08:48)
[2020-03-14] MEDS: ARTIFICIAL TEARS OP SCH ×4 (08:48→20:21)
[2020-03-14] MEDS: INSULIN GLARGINE SOLOSTAR 100 UNITS/ML 3 ML PEN SC SCH ×2 (08:49→20:34)
[2020-03-14] MEDS: BusPIRone 15 MG TAB PO SCH ×2 (08:49→20:19)
[2020-03-14] MEDS: INSULIN ASPART 100 UNITS/ML 3 ML PEN SC SCH ×4 (08:50→20:34)
[2020-03-14] MEDS: ERTAPENEM SODIUM 1,000 MG in SODIUM CHLORIDE 0.9% 50 ML IV SCH (15:49)
--- NOTE | 2020-03-14 16:29 | Hospitalist Progress Note ---
Date of Service March 14, 2020 Assessment & Plan (1) Unwitnessed fall: Suspect secondary to UTI and sedentary state due to lockdown as below. - Monitor for arrhythmia on telemetry given unclear history. - PT/OT evals -> Recommend rehab. (2) UTI (urinary tract infection): Agree with treatment in setting of pre-syncope. Urine culture from 03/12 grew multi-resistant E. coli; sensitive to ertapenem. - Contact isolation precautions due to history of ESBL - Continue ertapenem x 3 days. (3) Leg swelling: Suspect secondary to lack of mobility and venous insufficiency. - RUSSELL anderson, SCDs. - We will not increase Lasix dosing for now as no pulmonary edema to suggest CHF as cause and no proteinuria on UA. - Stable today. (4) Type 2 diabetes mellitus: HbA1c 8.8% in September; 9.5% this admission. Home regimen Lantus 28 units SQ every morning with Humalog correction factor. - Switch to Lantus 10 units twice daily, NovoLog aim 100-140, correction 30 g/dL/unit, carb ratio 1 unit / 10 g. - Sugars adequate today. (5) CKD (chronic kidney disease), stage III: Baseline Cr ~1.5. - Presently at baseline; monitor given Lasix, abx. (6) Hypothyroidism: TSH was 3.9 this admission. - Continue levothyroxine 88 mcg p.o. every morning (7) Anxiety and depression: Tearful affect today. - Continue escitalopram, buspirone, and trazodone (8) History of pulmonary embolism: On apixaban 2.5 mg PO BID (9) DVT prophylaxis: Eliquis 2.5 mg p.o. twice daily Admission and Anticipated Discharge Date Admission Date: March 12, 2020 Subjective No complaints today. She is aware she's in a hospital, but reports she is not a "patient patient" because she was on a bus tour and the bus broke down, and that it's about time for her to go. Reports no fevers/chills, chest pain, shortness of breath, abdominal pain, nausea, or vomiting. Physical Exam Constitutional: WD/WN, vitals as above Eyes: EOM intact bilaterally; no conjunctival abnormality ENMT: external ear and nose normal, oropharynx normal Neck: trachea midline, no thyromegaly normal visual inspection Respiratory: normal respiratory effort, lungs clear to auscultation no respiratory distress Cardiovascular: RRR, no murmur, no edema Gastrointestinal (Abdomen): Inspection/Auscultation: abdomen normal to inspection; abdomen not distended Musculoskeletal: no cyanosis or clubbing, extremities motor strength 5/5 Skin: no rashes, warm and dry Neurologic: moves all extremities and awake Psychiatric: Orientation: alert, oriented to person and cooperative; + not oriented to place and + not oriented to time Results & Data Results & Data ([facility]) Vital Signs (Past 12 Hours) Vital Signs Temp Pulse Pulse Resp BP Pulse Ox 03/14/20 13:22 85 18 93 03/14/20 11:08 36.6 C 79 20 119/75 92 03/14/20 08:13 36.9 C 65 20 164/68 H 99 03/14/20 07:45 61 03/14/20 07:08 66 16 92 PG Care Time/CCT Total # of Minutes Spent Total Time Spent with Patient: Total time spent is greater than 50% in coordination of care (as documented) at patient's floor/unit and/or counseling patient: Coding Level of Care Code 20079 Subseq Hosp Care Lvl 2 Diagnoses Unwitnessed fall R29.6 UTI (urinary tract infection) N39.0 Leg swelling M79.89 Type 2 diabetes mellitus E11.9; Z79.4 Diabetes mellitus fpc insulin use: with oil heaterman use Diabetes mellitus complication status: without complication CKD (chronic kidney disease), stage III N18.3 Hypothyroidism E03.9 Hypothyroidism type: unspecified Anxiety and depression F41.9; F32.9 History of pulmonary embolism Z86.711 DVT prophylaxis Z29.9 (1) Type 2 diabetes mellitus Diabetes mellitus oil heaterman insulin use: with fpc use Diabetes mellitus complication status: without complication Qualified Code(s): E11.9 - Type 2 diabetes mellitus without complications; Z79.4 - oil heaterman (current) use of insulin (2) Hypothyroidism Hypothyroidism type: unspecified Qualified Code(s): E03.9 - Hypothyroidism, unspecified
[2020-03-14] MEDS: SIMVASTATIN 20 MG TAB PO SCH (20:19)
[2020-03-14] MEDS: TRAZODONE HCL 50 MG TAB PO SCH (20:20)
[2020-03-14] MEDS: LATANOPROST 0.005% OP SOLN 2.5 ML BTL OPB SCH (20:21)
[2020-03-15] MEDS: LEVOTHYROXINE SODIUM 88 MCG TABLET PO SCH (05:26)
[2020-03-15 07:01] LABS: Hematocrit (blood only) 36.3 % (37-47); Hemoglobin 11.2 g/dL (12.0-16.0); Mean Corpuscular Hemoglobin 27.7 pg (25-34); Mean Corpuscular Hgb Conc 30.9 g/dL (32-36); Mean Corpuscular Volume 89.6 fL (80-100); Mean Platelet Volume 9.6 fL (7.4-10.4); Platelet Count 266 K/uL (130-400); RDW Coefficient of Variation 14.7 % (11.5-14.5); RDW Standard Deviation 48.1 fL (36.4-46.3); Red Blood Count 4.05 M/uL (4.2-5.4); White Blood Count 6.58 K/uL (4.8-10.8)
[2020-03-15] MEDS: ALBUT/IPRATROP 3MG/0.5MG NEB 3 ML VIAL INH SCH ×2 (07:02→13:22)
[2020-03-15 07:34] LABS: BUN Creatinine Ratio 14.3 (10-20); Calcium 9.1 mg/dl (8.5-10.1); Creatinine Clr Calc Pharmacy 29.4 ml/min; Est GFR (African American) 32.2; Est GFR (Non-African American) 27.8; Magnesium 1.9 mg/dl (1.8-2.4); Phosphorus 2.8 mg/dl (2.5-4.9); Potassium 3.7 mmol/L (3.5-5.1)
[2020-03-15] MEDS: FUROSEMIDE 20 MG TAB PO SCH (08:36)
[2020-03-15] MEDS: ESCITALOPRAM OXALATE 10 MG TAB PO SCH (08:36)
[2020-03-15] MEDS: APIXABAN 2.5 MG TAB PO SCH (08:36)
[2020-03-15] MEDS: BusPIRone 15 MG TAB PO SCH (08:36)
[2020-03-15] MEDS: FOLIC ACID 1 MG TAB PO SCH (08:36)
[2020-03-15] MEDS: ACETAMINOPHEN 500 MG TAB PO SCH ×2 (08:36→13:41)
[2020-03-15] MEDS: POTASSIUM CHLORIDE 10 MEQ TABCR PO SCH (08:36)
[2020-03-15] MEDS: INSULIN GLARGINE SOLOSTAR 100 UNITS/ML 3 ML PEN SC SCH (08:36)
[2020-03-15] MEDS: CETIRIZINE HCL 10 MG TABLET PO SCH (08:36)
[2020-03-15] MEDS: ARTIFICIAL TEARS OP SCH ×2 (08:36→12:14)
[2020-03-15] MEDS: THIAMINE HCL 50 MG TABLET PO SCH (08:36)
[2020-03-15] MEDS: INSULIN ASPART 100 UNITS/ML 3 ML PEN SC SCH ×2 (08:37→12:14)
[2020-03-15] MEDS ORDERED: ERTAPENEM SODIUM 1,000 MG in SODIUM CHLORIDE 0.9% 50 ML IV SCH (12:15)
[2020-03-15 15:41] VITALS: BP 141/80; PULSE 75; TEMP 98.1; O2SAT 92
--- NOTE | 2020-03-15 15:44 | Discharge Summary ---
Date of Service March 15, 2020 Admission HPI Per Admitting Provider Dana Ruvalcaba is an 84 year old female who presents to the ER after an unwitnessed fall [facility] [facility]. The patient does not remember much about the event. She thinks she went into the bathroom but does not remember the actual fall. She thinks he lost consciousness and woke up on the floor. She is orientated x3 although has ongoing short-term memory loss and unable to provide much of a history. Her daughter at bedside confirms she is close to her baseline. She does note her mother has been much less mobile due to the lockdown from coronavirus. The patient denies any fevers or chills. She has urge urinary incontinence at baseline but thinks this may be worse than usual. Discussed history with Madai Keen (Personal care medical aid @ [facility]). Was not there at the time but reportedly patient was in the hallway on her way to the bathroom when she called out. Had unwitnessed fall. Not noted to have loss of consciousness. Aid was in the hallway so was close by. Last fall end of October - when she was unwell with pneumonia. She had been complaining of burning, frequent urination and confusion. Urine culture was taken on February 19 which grew ESBL E. coli (notably resistant to Zosyn). Treated with nitrofurantoin from February 28-. Not taken diphenhydramine since beginning of January therefore did not contribute towards fall. Principal Diagnosis Fall Possible UTI vs. asymptomatic bacteruria Discharge Exam Constitutional WD/WN, vitals as above Eyes EOM intact bilaterally; no conjunctival abnormality ENMT external ear and nose normal, oropharynx normal Neck trachea midline, no thyromegaly normal visual inspection Respiratory normal respiratory effort, lungs clear to auscultation no respiratory distress Cardiovascular RRR, no murmur, no edema Gastrointestinal (Abdomen) Inspection/Auscultation: abdomen normal to inspection; abdomen not distended Musculoskeletal no cyanosis or clubbing, extremities motor strength 5/5 Skin no rashes, warm and dry Neurologic moves all extremities and awake Psychiatric Orientation: alert, oriented to person and cooperative; + not oriented to place and + not oriented to time Discharge Data Allergies Allergy/AdvReac Type Severity Reaction Status Date / Time doxycycline Allergy Mild Rash Verified 03/12/20 13:18 oxybutynin Allergy Mild Rash Verified 03/12/20 13:18 codeine Allergy Unknown Unknown Verified 03/12/20 13:18 fluticasone Allergy Unknown Unknown Verified 03/12/20 13:18 salmeterol Allergy Unknown Unknown Verified 03/12/20 13:18 Sulfa (Sulfonamide Allergy Unknown Unknown Verified 03/12/20 13:18 Antibiotics) troleandomycin Allergy Unknown Unknown Verified 03/12/20 13:18 Macrolide Antibiotics Allergy Unknown Verified 03/12/20 13:18 milk Allergy noted as Verified 03/12/20 13:18 "milk protein extract" allergy Consultations 03/12/20 15:24 ED Decision to Admit Stat Ordered Studies 03/12/20 11:12 CT head/brain wo con Stat Diabetes Follow up Diabetes Follow-up Needed for HgbA1c >9% Hospital Course (1) Unwitnessed fall: Suspect secondary to UTI and sedentary state due to lockdown as below. - Monitor for arrhythmia on telemetry given unclear history. NONE seen during admission. - PT/OT evals -> Recommend rehab. (2) UTI (urinary tract infection): Agree with treatment in setting of pre-syncope. Urine culture from 03/12 grew multi-resistant E. coli; sensitive to ertapenem. - Contact isolation precautions due to history of ESBL - Continued ertapenem x 3 days. - Given total lack of fever, white count (leukocytosis), or symptoms, I actually believe this was probably asymptomatic bacteruria. Would NOT recheck urine unless she has fever, significant altered mental status, or urinary complaints. (3) Leg swelling: Suspect secondary to lack of mobility and venous insufficiency. - RUSSELL anderson, SCDs. - We will not increase Lasix dosing as no pulmonary edema to suggest CHF as cause and no proteinuria on UA. - Stable today. The edema is not really pitting. Encourage RUSSELL anderson. (4) Type 2 diabetes mellitus: HbA1c 8.8% in September; 9.5% this admission. Home regimen Lantus 28 units SQ every morning with Humalog correction factor. - Tighten insulin regimen outpatient. (5) CKD (chronic kidney disease), stage III: Baseline Cr ~1.5. - Presently at baseline; monitor given Lasix, abx. (6) Hypothyroidism: TSH was 3.9 this admission. - Continue levothyroxine 88 mcg p.o. every morning (7) Anxiety and depression: Tearful affect today. - Continue escitalopram, buspirone, and trazodone (8) History of pulmonary embolism: On apixaban 2.5 mg PO BID (9) DVT prophylaxis: Eliquis 2.5 mg p.o. twice daily Total Time Total Time Spent Total Time Spent (In Minutes): 35 Discharge Plan Discharge Items Patient Disposition: Transfer [facility] Reason For Visit: PRESYNCOPE, UTI Discharge Diagnosis: Fall, UTI Activity: Resume your previous activity Non-emergency contact: Primary Care Provider Call non-emergency contact if: your symptoms worsen Follow-up/Referrals: Shiv Manley [Primary Care Provider] - Diet: Carb Consistent or DM2 and Heart Healthy Addtl Attending Provider Instructions: Ms. Guy was admitted after a fall. It was unwitnessed, but there was no indication that she lost consciousness. Imaging showed no broken bones, and head CT was normal. Her urinalysis showed MDRL E. coli, and she was treated with ertapenem while in the hospital. This was finished prior to discharge. She had a normal white count, no fever, and no symptoms, so I actually think this may have been asymptomatic bacteruria. I would recommend not re-testing her urine without a fairly clear-cut sign of infection, such as fever, changes in mental status (ie lethargy or something significant), change in heart rate or blood pressure. Otherwise, her medical issues were stable. She has chronic lower extremity edema that I DO NOT think is heart failure as the edema is mild and non-pitting. Her Lasix was continued without change. Compressions stockings as able would be good to use. Kidney function remained stable while in the hospital. Blood sugars were well- controlled, and I do not think she needs a change of regimen Pending Studies at Discharge: No Stand-Alone Forms: My [facility] Skilled Items Patient informed of condition?: Yes DNR: No Discharge Level of Care: Skilled Communicable Disease: No Discharge Prognosis: Improving Lines: None Urinary Catheter: No Medications and DC Order Prescriptions: Continued thiamine HCl (vitamin B1) [Vitamin B-1] 50 mg tablet 50 mg PO QAM RF: 0 Lantus U-100 Insulin 100 unit/mL solution 28 units subcut QAM RF: 0 (DME) compr.stocking,knee,long,large Misc See Rx Instructions .ROUTE .MEDSUPPLY Qty: 2 RF: 0 furosemide 20 mg tablet 20 mg PO DAILY Qty: 15 RF: 2 diphenhydramine HCl [Benadryl] 25 mg capsule 25 mg PO Q6 PRN (Reason: Itching) RF: 0 benzonatate [Tessalon Perles] 100 mg capsule 100 mg PO TID PRN (Reason: Cough) RF: 0 Caltrate 600-D Plus Minerals 600 mg calcium- 800 unit-50 mg tablet 1 tab PO BID RF: 0 latanoprost [Xalatan] 0.005 % Drops 1 drp OPB HS RF: 0 trazodone 50 mg Tablet 50 mg PO HS RF: 0 levothyroxine 88 mcg Tablet 88 mcg PO QAM RF: 0 simvastatin 20 mg Tablet 20 mg PO HS RF: 0 folic acid 1 mg Tablet 1 mg PO QAM RF: 0 escitalopram oxalate 10 mg Tablet 10 mg PO QAM RF: 0 acetaminophen [Tylenol Extra Strength] 500 mg tablet 500 mg PO TID RF: 0 Eliquis 2.5 mg Tablet 2.5 mg PO BID RF: 0 ipratropium-albuterol 0.5 mg-3 mg(2.5 mg base)/3 mL Solution For Nebulization 3 ml INHALATION TID RF: 0 Artificial Tears (cmc) 1 % Drops 1 drp OPB QID RF: 0 buspirone 15 mg Tablet 15 mg PO BID RF: 0 insulin lispro [Humalog U-100 Insulin] 100 unit/mL solution 1 sliding scale dose subcut AC RF: 0 cetirizine 10 mg Tablet 5 mg PO QAM RF: 0 Discontinued nitrofurantoin monohyd/m-cryst [Macrobid] 100 mg capsule 100 mg PO BID 7 Days Qty: 14 RF: 0 Discharge Orders: Discharge Order (Routine); Ordered 03/15/20 Ordered By: Adi Munoz Admission Data Admit Date/Time: 03/14/20 16:31 Attending Provider: Adi Munoz Admit Provider: Stephane Rios Primary Care Provider: Shiv Manley Other Providers: Adi Munoz ; Shiv Manley Other Interventions: Discharge Summary Assessment (RN) Last Done: 03/15/20 13:16 Coding Level of Care Code D/C Day Management >30 mins Diagnoses Unwitnessed fall R29.6 UTI (urinary tract infection) N39.0 Leg swelling M79.89 Type 2 diabetes mellitus E11.9; Z79.4 Diabetes mellitus alf insulin use: with bed bug exterminator use Diabetes mellitus complication status: without complication CKD (chronic kidney disease), stage III N18.3 Hypothyroidism E03.9 Hypothyroidism type: unspecified Anxiety and depression F41.9; F32.9 History of pulmonary embolism Z86.711 DVT prophylaxis Z29.9
== END 2020-03-15 16:35 | DRG 690 ==
LOC: 2N 10:53 → ED 10:53 → SUATTDRO 17:34 → 2N 18:30

== ENCOUNTER 2021-09-06 13:57 | Inpatient (IN) ==
--- NOTE | 2021-09-06 14:24 | Emergency Department Note ---
Impression & Plan Fall, Head injury, Bronchitis, Hypoxia, Chronic anticoagulation ED Provider Note NAME: CARL HERRERA AGE: 86 SEX: F : 1935 ARRIVES VIA: Ambulance INFORMANT: Patient, EMS ED PROVIDER(S): Bang Martins DO CHIEF COMPLAINT: Fall HPI: The patient is an 86-year-old female who presented to emergency department for evaluation after fall. The patient lives at a personal fpc. Patient was found on the floor at her personal fpc. It is unclear if the patient had a loss of consciousness. The patient was brought to the emergency department reportedly without any complaints. She denies having any headache or neck pain. She denies having any abdominal pain or chest pain. The patient does take blood thinners. She was noted by EMS to have a low pulse ox and this was confirmed in the emergency department. At this time the patient denies having any cough or chest pain. She denies having any back pain. Reportedly she was able to stand. She denies having any hip or lower extremity pain. The patient states that she has been compliant with her outpatient medications. She does have a history of early dementia according to the nursing staff. ROS: See above HPI for pertinent positives & negatives. A total of 10 systems reviewed and were otherwise negative. PAST MEDICAL HISTORY: See Below PAST SURGICAL HISTORY: See Below FAMILY HISTORY: See Below SOCIAL HISTORY: See Below HOME MEDICATIONS: See Below ALLERGIES: See Below VITALS: See Below PHYSICAL EXAMINATION: GENERAL: The patient is awake and answers questions appropriately. She does not appear to be uncomfortable. EYES: The conjunctivae are clear. The pupils are round and reactive. EARS, NOSE, MOUTH AND THROAT: The nose is without any evidence of any deformity. Mucous membranes are moist. Tongue is midline. NECK: The neck is nontender and supple. RESPIRATORY: Diminished breath sounds are noted throughout. There is no tachypnea or conversational dyspnea. CARDIOVASCULAR: Regular rate and rhythm noted there no murmurs rubs or gallops normal S1 normal S2. GASTROINTESTINAL: The abdomen is soft. Abdomen is nontender. BACK: There is no midline tenderness to palpation MUSCULOSKELETAL/EXTREMITIES: There is no shortening of either lower extremity. There is no deformity. The patient does have pain with palpation over the right leg and the right thigh. Range of motion appears intact in the right hip. SKIN: There was bilateral lower extremity edema. Skin is warm and dry. NEUROLOGIC: Patient is awake and oriented to person place but not time. Strength was symmetric but diminished. MEDICAL DECISION MAKING: The patient is an 86-year-old female who presented to the emergency department after a fall. The patient had a fall at her personal fpc she fell backwards striking her head. She was sent to the emergency department because she takes chronic anticoagulation. The patient is a history of pulmonary embolism in the past. The patient was found to be hypoxic. She did have abnormal lung sounds but she did not appear to have respiratory distress. Further work-up did not reveal definite cause for her hypoxia. Because of her history of CT the chest was then obtained. She was treated with IV fluids and IV antibiotics for presumed early pneumonia versus bronchitis. Her daughter came to be with her in the emergency department. She was very concerned about the patient's wellbeing given her abnormal oxygen saturation. For this reason I discussed her case with the on-call [facility] hospitalist group. They have agreed to evaluate the patient in the emergency department for further management and disposition. Triage Nursing notes reviewed. Prior medical records reviewed Vital Signs: reviewed and remarkable for hypoxia. Differential diagnosis: Infection, hypoglycemia, electrolyte abnormalities, overdose, toxicologic, cardiac sources, intracerebral event, neurologic, trauma, as well as other pathologies. ER treatment provided: See below Diagnostics interpreted by me: ECG: EKG was obtained in the emergency department. My interpretation is normal sinus rhythm at 72 bpm. There is no ectopy. Poor R wave progression was noted. This was compared to a tracing from November 292020. No changes were noted. Cardiac Monitoring: An order was placed for continuous cardiac monitoring. The monitor shows a rate of 82 bpm with sinus rhythm. Laboratory studies: As stated above and show below. Imaging studies: See below Consultation(s): I discussed this case with Eva who is on-call for the [facility] Hospitalist group. Past Med/Surg History Medical History Allergic rhinitis Anxiety and depression Arthritis Arthritis of knee Asthma Cardiomyopathy CKD (chronic kidney disease), stage III Dementia Dyslipidemia Endometrioid adenocarcinoma of uterus History of DVT (deep vein thrombosis) (2014) "LLE 2014" History of pulmonary embolism (2014) "2014" Hypertension Hypothyroidism Hypothyroidism Type 2 diabetes mellitus Urinary incontinence Vertigo Vitamin D deficiency Surgical History H/O cataract extraction History of robot-assisted laparoscopic hysterectomy (10/2018) 11/10/18 - with BSO with B/L SLN Biopsy and Right pelvic lymph node dissection and cystoscopy (Dr. Buffy Mayo in [place]) S/P appendectomy as a child S/P foot surgery (2004) S/P tonsillectomy and adenoidectomy Family History Mother , Passed in 80s/90's of old age No problems noted. Father , Passed in 70's of black lung complications ([place]) Lung disease Sister , Passed in 80's of unknown No problems noted. Sister , Passed in 60's of unknown No problems noted. Brother , Passed in 60's of unknown (alcoholic) Hypertension Brother , Passed in late 70's of unknown Lung disease Daughter No problems noted. Son No problems noted. Son No problems noted. Son No problems noted. 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 Feels Safe at Home: Yes Childhood Exposure to Second-Hand Smoke: No Diet Comment: well balanced diet caffeine: No during the past year weight has: increased > 10 lbs Dental Care, Regularly: No Physical Activity Frequency: Does not Exercise Seatbelt Use: always Sunscreen Use: No Assistive Devices: Walker Allergies Allergies Allergy/AdvReac Type Severity Reaction Status Date / Time doxycycline Allergy Mild Rash Verified 09/06/21 17:02 oxybutynin Allergy Mild Rash Verified 09/06/21 17:02 codeine Allergy Unknown Unknown Verified 09/06/21 17:02 fluticasone Allergy Unknown Unknown Verified 09/06/21 17:02 salmeterol Allergy Unknown Unknown Verified 09/06/21 17:02 Sulfa (Sulfonamide Allergy Unknown Unknown Verified 09/06/21 17:02 Antibiotics) troleandomycin Allergy Unknown Unknown Verified 09/06/21 17:02 Macrolide Antibiotics Allergy Unknown Verified 09/06/21 17:02 milk Allergy noted as Verified 09/06/21 17:02 "milk protein extract" allergy Home Meds Home Medications Medication Instructions Recorded Confirmed folic acid 1 mg tablet 1 mg PO QAM 08/04/18 09/06/21 latanoprost 0.005 % eye drops 1 drp OPB HS 08/04/18 09/06/21 (Xalatan) levothyroxine 88 mcg tablet 88 mcg PO QAM 08/04/18 09/06/21 simvastatin 20 mg tablet 20 mg PO HS 08/04/18 09/06/21 trazodone 50 mg tablet 50 mg PO HS 08/04/18 09/06/21 acetaminophen 500 mg tablet 500 mg PO TID 12/16/18 09/06/21 (Tylenol Extra Strength) apixaban 2.5 mg tablet (Eliquis) 2.5 mg PO BID 03/13/19 09/06/21 carboxymethylcellulose sodium 1 % 1 drp OPB QID 06/04/19 09/06/21 eye drops (Artificial Tears (carboxymethylcellulose)) thiamine HCl (vitamin B1) 50 mg 50 mg PO QAM 08/03/19 09/06/21 tablet (Vitamin B-1) cetirizine 10 mg tablet 5 mg PO QAM 10/25/19 09/06/21 buspirone 15 mg tablet 15 mg PO BID 03/12/20 09/06/21 benzonatate 100 mg capsule 100 mg PO TID PRN 04/16/20 09/06/21 insulin glargine 100 unit/mL 34 unit SUBCUT QAM ml 04/16/20 09/06/21 subcutaneous solution (Lantus U-100 Insulin) calcium carbonate 600 mg-vitamin 1 tab PO BID 11/29/20 09/06/21 D3 10 mcg (400 unit) tablet (Calcium 600 + D(3)) escitalopram oxalate 10 mg tablet 20 mg PO QAM tab 01/08/21 09/06/21 insulin aspart U-100 100 unit/mL 5 unit SUBCUT TIDM 09/06/21 09/06/21 subcutaneous solution (Novolog U-100 Insulin aspart) Previous Rx's Medication Instructions Recorded furosemide 20 mg tablet 20 mg PO DAILY #15 tab 02/14/20 triamcinolone acetonide 0.1 % 1 applic TOPICAL BID PRN #30 g 07/06/20 topical cream walker #1 ea 02/14/21 nystatin 100,000 unit/gram topical 1 applic TOPICAL BID #30 g 03/22/21 cream Results & Data (ED) Vital Signs Vital Signs - 24 hr 09/06/21 14:03 09/06/21 14:45 09/06/21 16:03 Temperature 37.1 C Temperature Source Oral Pulse Rate 86 72 Pulse Rate [Left Radial] 72 82 Pulse Rhythm Regular Regular Pulse Rhythm [Left Radial] Regular Regular Pulse Strength Normal Pulse Strength [Left Radial] Normal Normal Respiratory Rate 20 18 20 Respiratory Effort / Characteristics Non-Labored Non-Labored Respiratory Depth Normal Normal Respiratory Pattern Regular Regular Blood Pressure 116/94 Blood Pressure [Left Arm] 116/94 135/78 Blood Pressure Mean 101 Blood Pressure Mean [Left Arm] 101 97 Blood Pressure Position Lying Blood Pressure Position [Left Arm] Lying Lying Pulse Oximetry 96 95 98 Oxygen Delivery Method Nasal Cannula Nasal Cannula Room Air Oxygen Flow Rate 2 2 Sepsis Recent Fever Within 48 Hours No Sepsis New/Unexplained Change in Mental Status No Sepsis Action Taken by Nursing No Action Required Home Medications Current Medication List: was personally reviewed by me Laboratory Data Attestation: I reviewed the patient's lab results. Result diagrams: 09/06/21 14:10 09/06/21 14:10 Lab Results 09/06/21 09/06/21 09/06/21 Range/Units 14:10 14:10 14:10 WBC 7.58 (4.8-10.8) K/uL RBC 4.58 (4.2-5.4) M/uL Hgb 13.7 (12.0-16.0) g/dL Hct 43.4 (37-47) % MCV 94.8 (80-100) fL MCH 29.9 (25-34) pg MCHC 31.6 L (32-36) g/dL RDW Std Deviation 45.9 (36.4-46.3) fL RDW Coeff of Beverley 13.3 (11.5-14.5) % Plt Count 219 (130-400) K/uL MPV 10.2 (7.4-10.4) fL Immature Gran % (Auto) 0.3 % Neut % (Auto) 74.4 % Lymph % (Auto) 12.5 % [place] % (Auto) 7.0 % Eos % (Auto) 5.5 % Baso % (Auto) 0.3 % Neut # (Auto) 5.64 (1.4-6.5) K/uL Lymph # (Auto) 0.95 L (1.2-3.4) K/uL [place] # (Auto) 0.53 (0.11-0.59) K/uL Eos # (Auto) 0.42 (0-0.5) K/uL Baso # (Auto) 0.02 (0-0.2) K/uL Immature Gran # (Auto) 0.02 (0.00-0.02) K/uL PT 11.9 (9.0-12.0) Seconds INR 1.1 (0.9-1.1) APTT 30.4 (21.0-31.0) Seconds PTT Ratio 1.1 VBG pH (7.36-7.41) VBG pCO2 (38-50) mmHg VBG pO2 mmHg VBG HCO3 mmol/L VBG O2 Saturation % VBG Base Excess mEq/L Barometric Pressure mm/Hg Sodium 141 (136-145) mmol/L Potassium 3.7 (3.5-5.1) mmol/L Chloride 96 L (98-107) mmol/L Carbon Dioxide 38 H (21-32) mmol/L Anion Gap 7 (3-11) BUN 27 H (6-23) mg/dl Creatinine 1.80 H (0.6-1.2) mg/dl Est Cr Clr Drug Dosing Not Reportable Est GFR ( Amer) 28.8 ml/min Est GFR (Non-Af Amer) 24.9 ml/min BUN/Creatinine Ratio 15.0 (10-20) Glucose 186 H (70-99(Fasting)) mg/dl Calcium 9.7 (8.5-10.1) mg/dl Total Bilirubin 0.6 (0.2-1.0) mg/dl AST 14 (13-39) U/L ALT 9 (7-52) U/L Alkaline Phosphatase 63 (34-104) U/L Troponin I < 0.03 (0-0.04) ng/ml Total Protein 6.7 (6.0-8.3) gm/dl Albumin 3.9 (3.4-5.0) gm/dl Globulin 2.8 (2.5-4.0) gm/dl Albumin/Globulin Ratio 1.4 (0.9-2) Lipase 43 (11-82) U/L SARS-CoV-2, RNA, NAAT (NEGATIVE) 09/06/21 09/06/21 Range/Units 14:32 16:50 WBC (4.8-10.8) K/uL RBC (4.2-5.4) M/uL Hgb (12.0-16.0) g/dL Hct (37-47) % MCV (80-100) fL MCH (25-34) pg MCHC (32-36) g/dL RDW Std Deviation (36.4-46.3) fL RDW Coeff of Beverley (11.5-14.5) % Plt Count (130-400) K/uL MPV (7.4-10.4) fL Immature Gran % (Auto) % Neut % (Auto) % Lymph % (Auto) % [place] % (Auto) % Eos % (Auto) % Baso % (Auto) % Neut # (Auto) (1.4-6.5) K/uL Lymph # (Auto) (1.2-3.4) K/uL [place] # (Auto) (0.11-0.59) K/uL Eos # (Auto) (0-0.5) K/uL Baso # (Auto) (0-0.2) K/uL Immature Gran # (Auto) (0.00-0.02) K/uL PT (9.0-12.0) Seconds INR (0.9-1.1) APTT (21.0-31.0) Seconds PTT Ratio VBG pH 7.40 (7.36-7.41) VBG pCO2 64 H (38-50) mmHg VBG pO2 32 mmHg VBG HCO3 39 mmol/L VBG O2 Saturation < 60.0 % VBG Base Excess 11.4 mEq/L Barometric Pressure 728.1 mm/Hg Sodium (136-145) mmol/L Potassium (3.5-5.1) mmol/L Chloride (98-107) mmol/L Carbon Dioxide (21-32) mmol/L Anion Gap (3-11) BUN (6-23) mg/dl Creatinine (0.6-1.2) mg/dl Est Cr Clr Drug Dosing Est GFR ( Amer) ml/min Est GFR (Non-Af Amer) ml/min BUN/Creatinine Ratio (10-20) Glucose (70-99(Fasting)) mg/dl Calcium (8.5-10.1) mg/dl Total Bilirubin (0.2-1.0) mg/dl AST (13-39) U/L ALT (7-52) U/L Alkaline Phosphatase (34-104) U/L Troponin I (0-0.04) ng/ml Total Protein (6.0-8.3) gm/dl Albumin (3.4-5.0) gm/dl Globulin (2.5-4.0) gm/dl Albumin/Globulin Ratio (0.9-2) Lipase (11-82) U/L SARS-CoV-2, RNA, NAAT NEGATIVE (NEGATIVE) Administered Medications Ceftriaxone Sodium (Rocephin) 1,000 mg in 50 mls @ 100 mls/hr IV NOW STA Stop: 09/06/21 18:28 Last Admin: 09/06/21 18:21 Dose: 100 mls/hr Documented by: [id number] Discontinued Medications Sodium Chloride (Nss 1000ml) 500 mls @ 999 mls/hr IV .Q31M ONE Stop: 09/06/21 17:24 Last Infusion: 09/06/21 17:53 Dose: 0 mls/hr Documented by: [id number] Admin: 09/06/21 17:04 Dose: 999 mls/hr Documented by: [id number] Ioversol (Optiray 320 125ml) 120 ml IV ONCE ONE Stop: 09/06/21 17:18 Last Admin: 09/06/21 17:18 Dose: 1 ml Documented by: [id number] Imaging Data Radiologist's Impression: Cervical Spine CT 09/06/21 14:18 CT cervical spine wo con CLINICAL HISTORY: Unwitnessed fall. Neck pain. COMPARISON STUDY: 06/03/2019 CT DOSE: 1555.89 mGy.cm TECHNIQUE: Standard CT of the Cervical Spine was performed without IV contrast. A dose lowering technique was utilized adhering to the principles of ALARA. FINDINGS: Bones: There is no evidence for an acute fracture or malalignment. The heights of the vertebral bodies are maintained. The vertebral bodies are in anatomic alignment. The odontoid is intact and the atlantoaxial articulation is within normal limits. Disc spaces: Moderate to marked disc space narrowing is present from C4 through C7 with minimal endplate sclerosis and osteophyte formation present. Apophyseal joints: Degenerative apophyseal joint disease is also seen throughout the cervical spine. Soft tissues: The prevertebral soft tissues are within normal limits. IMPRESSION: 1. No acute osseous pathology. 2. Degenerative disc and degenerative joint disease are again seen. ACT 112: Negative or not required by law. Electronically signed by: Mainor Acuna M.D. 09/06/2021 3:49 PM Chest X-Ray 09/06/21 14:18 XR chest 1V portable HISTORY: Atypical chest pain. Fall. COMPARISON: Chest 03/12/2020. FINDINGS: The cardiac silhouette remains mildly enlarged. No focal lung consolidations to suggest pneumonia. No evidence for pulmonary edema. No pleural effusions. No pneumothorax. Calcifications again noted within the aortic knob. Advanced degenerative changes within the left shoulder. IMPRESSION: No significant change compared to the prior study. No acute process. ACT 112: Negative or not required by law. Electronically signed by: Ciro Lopez M.D. 09/06/2021 4:34 PM Femur X-Ray 09/06/21 14:18 XR pelvis 1-2V routine, XR femur RT 2V routine, XR tibia fibula RT 2V HISTORY: 86 years-old Female fall acute pain of the pelvis, right hip and femur COMPARISON: CT abdomen and pelvis 11/04/2019, pelvis radiographs 10/25 2019 TECHNIQUE: AP view of the pelvis with 2 views of the right femur, 2 views of the right tibia and fibula. FINDINGS: PELVIS: Demineralized appearance the bones. Moderate osteoarthritis of the hips. No acute fracture, dislocation or avascular necrosis. Unremarkable soft tissues. FEMUR: No acute fracture, dislocation or opaque foreign body. Moderate right knee osteoarthritis. TIBIA/FIBULA: No acute fracture, dislocation or opaque foreign body. IMPRESSION: No acute fracture or dislocation. ACT 112: Negative or not required by law. The above report was generated using voice recognition software. It may contain grammatical, syntax or spelling errors. Electronically signed by: Phu Youngblood M.D. 09/06/2021 4:[address] 09/06/21 14:18 CT head/brain wo con CLINICAL HISTORY: 86 years-old Female with fall. Acute head trauma status post fall TECHNIQUE: Multiple axial CT images of the head were obtained without contrast. A dose lowering technique was utilized adhering to the principles of ALARA. COMPARISON: Head CT 11/29/2020 FINDINGS: No acute intracranial hemorrhage, midline shift, intracranial mass, hydrocephalus, territorial ischemia or abnormal extra-axial collection. Age- related involutional changes. White matter hypodensities suggest chronic microvascular ischemic disease. Cerebral vascular calcifications. Motion degraded exam. There are a few small lipomas noted involving the falx cerebri. The calvarium is intact. Prior bilateral lens repair. The paranasal sinuses, mastoid air cells, and middle ear cavities are clear. IMPRESSION: No acute intracranial abnormality or calvarial fracture. ACT 112: Negative or not required by law. The above report was generated using voice recognition software. It may contain grammatical, syntax or spelling errors. Electronically signed by: Phu Youngblood M.D. 09/06/2021 3:34 PM Pelvis X-Ray 09/06/21 14:18 XR pelvis 1-2V routine, XR femur RT 2V routine, XR tibia fibula RT 2V HISTORY: 86 years-old Female fall acute pain of the pelvis, right hip and femur COMPARISON: CT abdomen and pelvis 11/04/2019, pelvis radiographs 10/25 2019 TECHNIQUE: AP view of the pelvis with 2 views of the right femur, 2 views of the right tibia and fibula. FINDINGS: PELVIS: Demineralized appearance the bones. Moderate osteoarthritis of the hips. No acute fracture, dislocation or avascular necrosis. Unremarkable soft tissues. FEMUR: No acute fracture, dislocation or opaque foreign body. Moderate right knee osteoarthritis. TIBIA/FIBULA: No acute fracture, dislocation or opaque foreign body. IMPRESSION: No acute fracture or dislocation. ACT 112: Negative or not required by law. The above report was generated using voice recognition software. It may contain grammatical, syntax or spelling errors. Electronically signed by: Phu Youngblood M.D. 09/06/2021 4:35 PM Tibia/Fibula X-Ray 09/06/21 14:18 XR pelvis 1-2V routine, XR femur RT 2V routine, XR tibia fibula RT 2V HISTORY: 86 years-old Female fall acute pain of the pelvis, right hip and femur COMPARISON: CT abdomen and pelvis 11/04/2019, pelvis radiographs 10/25 2019 TECHNIQUE: AP view of the pelvis with 2 views of the right femur, 2 views of the right tibia and fibula. FINDINGS: PELVIS: Demineralized appearance the bones. Moderate osteoarthritis of the hips. No acute fracture, dislocation or avascular necrosis. Unremarkable soft tissues. FEMUR: No acute fracture, dislocation or opaque foreign body. Moderate right knee osteoarthritis. TIBIA/FIBULA: No acute fracture, dislocation or opaque foreign body. IMPRESSION: No acute fracture or dislocation. ACT 112: Negative or not required by law. The above report was generated using voice recognition software. It may contain grammatical, syntax or spelling errors. Electronically signed by: Phu Youngblood M.D. 09/06/2021 4:35 PM Chest CTA 09/06/21 16:54 CT angio chest PE protocol CT DOSE: 933.06 mGy.cm HISTORY: 86 years-old Female with PE. Acute shortness of breath with chest pain status post fall TECHNIQUE: Multiple CTA images of the chest were obtained after the intravenous administration of 120 ml Optiray. Coronal and sagittal MIPS were obtained from the axial data set and were submitted for review. All measurements were obtained according to NASCET criteria. A dose lowering technique was utilized adhering to the principles of ALARA. COMPARISON: Head CT 08/15/2017. FINDINGS: CTA: Moderate cardiomegaly. No pericardial effusion. Atherosclerosis of the thoracic aorta without aneurysm or dissection. There is patency of the imaged great vessels. Pulmonary artery is dilated measuring up to 3.7 cm. Respiratory motion artifact limits evaluation of the segmental and subsegmental pulmonary arterial branches. CT CHEST: No thyroid nodule. Mildly prominent mediastinal and hilar lymph nodes are likely reactive. No pneumothorax, pleural effusion or overt pulmonary edema. Respiratory motion artifact dilation lung parenchyma. Bronchial wall thickening with mild bibasilar mucous plugging. Subsegmental bibasilar groundglass densities. 1.6 cm groundglass nodular density of the inferior segment lingula on image 78. On the reformatted images this has a linear morphology and is also likely atelectatic. Decreased AP dimension of the trachea and bronchi. No acute process of the imaged upper abdomen. Unremarkable soft tissues. De generative changes of the shoulders and spine. Chronic left proximal humeral fracture deformity. IMPRESSION: 1. Cardiomegaly without pulmonary emboli. 2. Bronchial wall thickening suggestive of bronchitis or reactive airway disease with mild mucous plugging. 3. No acute fracture. 4. Healed chronic fracture deformity of the proximal left humerus with severe associated glenohumeral osteoarthritis. ACT 112: Negative or not required by law. The above report was generated using voice recognition software. It may contain grammatical, syntax or spelling errors. Electronically signed by: Phu Youngblood M.D. 09/06/2021 5:51 PM Discharge Plan Visit Data Chief Complaint: Fall Stated Complaint: FALL ED Provider: Bang Martins Discharge Problem: Fall, Head injury, Bronchitis, Hypoxia, Chronic anticoagulation Patient Disposition: Being Evaluated by Hospitalist Forms Stand Alone Forms: [facility] Prescriptions Prescriptions: No Action thiamine HCl (vitamin B1) [Vitamin B-1] 50 mg tablet 50 mg PO QAM RF: 0 Lantus U-100 Insulin 100 unit/mL solution 34 unit subcut QAM RF: 0 triamcinolone acetonide 0.1 % cream 1 applic topical BID PRN (Reason: itching) Qty: 30 RF: 0 escitalopram oxalate 10 mg tablet 20 mg PO QAM RF: 0 (DME) walker Misc See Rx Instructions .Route Qty: 1 RF: 0 nystatin 100,000 unit/gram cream 1 applic topical BID Qty: 30 RF: 0 furosemide 20 mg tablet 20 mg PO DAILY Qty: 15 RF: 2 benzonatate 100 mg capsule 100 mg PO TID PRN (Reason: Cough) RF: 0 latanoprost [Xalatan] 0.005 % Drops 1 drp OPB HS RF: 0 trazodone 50 mg Tablet 50 mg PO HS RF: 0 levothyroxine 88 mcg Tablet 88 mcg PO QAM RF: 0 simvastatin 20 mg Tablet 20 mg PO HS RF: 0 folic acid 1 mg Tablet 1 mg PO QAM RF: 0 acetaminophen [Tylenol Extra Strength] 500 mg tablet 500 mg PO TID RF: 0 Eliquis 2.5 mg Tablet 2.5 mg PO BID RF: 0 Artificial Tears (cmc) 1 % Drops 1 drp OPB QID RF: 0 buspirone 15 mg Tablet 15 mg PO BID RF: 0 cetirizine 10 mg Tablet 5 mg PO QAM RF: 0 insulin aspart U-100 [Novolog U-100 Insulin aspart] 100 unit/mL solution 5 unit subcut TIDM RF: 0 calcium carbonate-vitamin D3 [Calcium 600 + D(3)] 600 mg(1,500mg) -400 unit Tablet 1 tab PO BID RF: 0 Referrals Referrals: Shiv Manley [Primary Care Provider] -
[2021-09-06 14:31] LABS: Basophils # (auto) 0.02 K/uL (0-0.2); Basophils % (auto) 0.3 %; Eosinophils # (auto) 0.42 K/uL (0-0.5); Eosinophils % (auto) 5.5 %; Hematocrit (blood only) 43.4 % (37-47); Hemoglobin 13.7 g/dL (12.0-16.0); Immature Granulocytes # (auto) 0.02 K/uL (0.00-0.02); Immature Granulocytes % (auto) 0.3 %; Lymphocytes # (auto) 0.95 K/uL (1.2-3.4); Lymphocytes % (auto) 12.5 %; Mean Corpuscular Hemoglobin 29.9 pg (25-34); Mean Corpuscular Hgb Conc 31.6 g/dL (32-36); Mean Corpuscular Volume 94.8 fL (80-100); Mean Platelet Volume 10.2 fL (7.4-10.4); Monocytes # (auto) 0.53 K/uL (0.11-0.59); Neutrophils # (auto) 5.64 K/uL (1.4-6.5); Neutrophils % (auto) 74.4 %; Platelet Count 219 K/uL (130-400); RDW Coefficient of Variation 13.3 % (11.5-14.5); RDW Standard Deviation 45.9 fL (36.4-46.3); Red Blood Count 4.58 M/uL (4.2-5.4); White Blood Count 7.58 K/uL (4.8-10.8)
[2021-09-06 14:42] LABS: INR 1.1 (0.9-1.1); Partial Thromboplastin Ratio 1.1; Partial Thromboplastin Time 30.4 Seconds (21.0-31.0); Prothrombin Time 11.9 Seconds (9.0-12.0)
[2021-09-06 14:51] LABS: Base Excess VBG 11.4 mEq/L; HCO3 VBG 39 mmol/L; PCO2 VBG 64 mmHg (38-50); PO2 VBG 32 mmHg
[2021-09-06 14:52] LABS: Troponin I < 0.03 ng/ml (0-0.04)
[2021-09-06 14:55] LABS: Alanine Aminotransferase 9 U/L (7-52); Albumin Globulin Ratio 1.4 (0.9-2); Albumin Level 3.9 gm/dl (3.4-5.0); Alkaline Phosphatase 63 U/L (34-104); Anion Gap 7 (3-11); Aspartate Aminotransferase 14 U/L (13-39); Bilirubin,Total 0.6 mg/dl (0.2-1.0); Blood Urea Nitrogen 27 mg/dl (6-23); Calcium 9.7 mg/dl (8.5-10.1); Carbon Dioxide 38 mmol/L (21-32); Chloride 96 mmol/L (98-107); Est GFR (African American) 28.8 ml/min; Est GFR (Non-African American) 24.9 ml/min; Globulin 2.8 gm/dl (2.5-4.0); Glucose 186 mg/dl (70-99(Fasting)); Lipase 43 U/L (11-82); Potassium 3.7 mmol/L (3.5-5.1); Sodium 141 mmol/L (136-145); Total Protein 6.7 gm/dl (6.0-8.3)
[2021-09-06 15:01] LABS: Oxygen Saturation VBG < 60.0 %
--- NOTE | 2021-09-06 15:35 | CT Scan Report ---
CT head/brain wo con CLINICAL HISTORY: 86 years-old Female with fall. Acute head trauma status post fall TECHNIQUE: Multiple axial CT images of the head were obtained without contrast. A dose lowering tech nique was utilized adhering to the principles of ALARA. COMPARISON: Head CT 11/29/2020 FINDINGS: No acute intracranial hemorrhage, midline shift, intracranial mass, hydrocephalus, territorial ischem ia or abnormal extra-axial collection. Age-related involutional changes. White matter hypodensities s uggest chronic microvascular ischemic disease. Cerebral vascular calcifications. Motion degraded exam . There are a few small lipomas noted involving the falx cerebri. The calvarium is intact. Prior bilateral lens repair. The paranasal sinuses, mastoid air cells, and m iddle ear cavities are clear. IMPRESSION: No acute intracranial abnormality or calvarial fracture. ACT 112: Negative or not required by law. The above report was generated using voice recognition software. It may contain grammatical, syntax o r spelling errors. Electronically signed by: Phu Youngblood M.D. 09/06/2021 3:34 PM
--- NOTE | 2021-09-06 15:50 | CT Scan Report ---
CT cervical spine wo con CLINICAL HISTORY: Unwitnessed fall. Neck pain. COMPARISON STUDY: 06/03/2019 CT DOSE: 1555.89 mGy.cm TECHNIQUE: Standard CT of the Cervical Spine was performed without IV contrast. A dose lowering kishore hnique was utilized adhering to the principles of ALARA. FINDINGS: Bones: There is no evidence for an acute fracture or malalignment. The heights of the vertebral hiren s are maintained. The vertebral bodies are in anatomic alignment. The odontoid is intact and the atla ntoaxial articulation is within normal limits. Disc spaces: Moderate to marked disc space narrowing is present from C4 through C7 with minimal endpl ate sclerosis and osteophyte formation present. Apophyseal joints: Degenerative apophyseal joint disease is also seen throughout the cervical spine. Soft tissues: The prevertebral soft tissues are within normal limits. IMPRESSION: 1. No acute osseous pathology. 2. Degenerative disc and degenerative joint disease are again seen. ACT 112: Negative or not required by law. Electronically signed by: Mainor Acuna M.D. 09/06/2021 3:49 PM
--- NOTE | 2021-09-06 16:35 | XRay Report ---
XR chest 1V portable HISTORY: Atypical chest pain. Fall. COMPARISON: Chest 03/12/2020. FINDINGS: The cardiac silhouette remains mildly enlarged. No focal lung consolidations to suggest pne umonia. No evidence for pulmonary edema. No pleural effusions. No pneumothorax. Calcifications again noted within the aortic knob. Advanced degenerative changes within the left shoulder. IMPRESSION: No significant change compared to the prior study. No acute process. ACT 112: Negative or not required by law. Electronically signed by: Ciro Lopez M.D. 09/06/2021 4:34 PM
--- NOTE | 2021-09-06 16:36 | XRay Report ---
XR pelvis 1-2V routine, XR femur RT 2V routine, XR tibia fibula RT 2V HISTORY: 86 years-old Female fall acute pain of the pelvis, right hip and femur COMPARISON: CT abdomen and pelvis 11/04/2019, pelvis radiographs 10/25 2019 TECHNIQUE: AP view of the pelvis with 2 views of the right femur, 2 views of the right tibia and fibu la. FINDINGS: PELVIS: Demineralized appearance the bones. Moderate osteoarthritis of the hips. No acute fracture, dislocati on or avascular necrosis. Unremarkable soft tissues. FEMUR: No acute fracture, dislocation or opaque foreign body. Moderate right knee osteoarthritis. TIBIA/FIBULA: No acute fracture, dislocation or opaque foreign body. IMPRESSION: No acute fracture or dislocation. ACT 112: Negative or not required by law. The above report was generated using voice recognition software. It may contain grammatical, syntax o r spelling errors. Electronically signed by: Phu Youngblood M.D. 09/06/2021 4:35 PM
--- NOTE | 2021-09-06 16:36 | Electrocardiogram Report ---
Test Reason : Blood Pressure : / mmHG Vent. Rate : 072 BPM Atrial Rate : 072 BPM P-R Int : 150 ms QRS Dur : 086 ms QT Int : 426 ms P-R-T Axes : 008 -61 061 degrees QTc Int : 466 ms Normal sinus rhythm Left anterior fascicular block Abnormal ECG When compared with ECG of 29-NOV-2020 01:54, Nonspecific T wave abnormality no longer present Confirmed by Nik Hermosillo ([id number]) on 09/06/2021 4:36:21 PM Referred By: Confirmed By:Nik Hermosillo
[2021-09-06] MEDS ORDERED: SODIUM CHLORIDE 0.9% 1000ML 500 ML IV ONE (16:54)
[2021-09-06] MEDS ORDERED: OPTIRAY 320 125ml IV ONE (17:17)
--- NOTE | 2021-09-06 17:52 | CT Scan Report ---
CT angio chest PE protocol CT DOSE: 933.06 mGy.cm HISTORY: 86 years-old Female with PE. Acute shortness of breath with chest pain status post fall TECHNIQUE: Multiple CTA images of the chest were obtained after the intravenous administration of 120 ml Optiray. Coronal and sagittal MIPS were obtained from the axial data set and were submitted for review. All measurements were obtained according to NASCET criteria. A dose lowering technique was u tilized adhering to the principles of ALARA. COMPARISON: Head CT 08/15/2017. FINDINGS: CTA: Moderate cardiomegaly. No pericardial effusion. Atherosclerosis of the thoracic aorta without aneurys m or dissection. There is patency of the imaged great vessels. Pulmonary artery is dilated measuring up to 3.7 cm. Respiratory motion artifact limits evaluation of the segmental and subsegmental pulmona ry arterial branches. CT CHEST: No thyroid nodule. Mildly prominent mediastinal and hilar lymph nodes are likely reactive. No pneumot horax, pleural effusion or overt pulmonary edema. Respiratory motion artifact dilation lung parenchym a. Bronchial wall thickening with mild bibasilar mucous plugging. Subsegmental bibasilar groundglass densities. 1.6 cm groundglass nodular density of the inferior segment lingula on image 78. On the ref ormatted images this has a linear morphology and is also likely atelectatic. Decreased AP dimension o f the trachea and bronchi. No acute process of the imaged upper abdomen. Unremarkable soft tissues. Degenerative changes of the shoulders and spine. Chronic left proximal humeral fracture deformity. IMPRESSION: 1. Cardiomegaly without pulmonary emboli. 2. Bronchial wall thickening suggestive of bronchitis or reactive airway disease with mild mucous plu gging. 3. No acute fracture. 4. Healed chronic fracture deformity of the proximal left humerus with severe associated glenohumeral osteoarthritis. ACT 112: Negative or not required by law. The above report was generated using voice recognition software. It may contain grammatical, syntax o r spelling errors. Electronically signed by: Phu Youngblood M.D. 09/06/2021 5:51 PM
[2021-09-06] MEDS ORDERED: cefTRIAXone SODIUM 1,000 MG/50 ML BAG IV STA (17:59)
[2021-09-06 18:33] LABS: Appearance Urine Clear (Clear); Bacteria Urine Automated 4+ (Negative); Bilirubin Urine Negative (Negative); Blood Urine Negative (Negative); Color Urine Yellow; Glucose Urine UA Negative (Negative); Ketones Urine Negative (Negative); Leukocyte Esterase Urine 1+ (Negative); Nitrite Urine Positive (Negative); Protein Urine Negative (Negative); RBC Urine Automated 0-4 /hpf (0-4); Specific Gravity Urine 1.031 (1.000-1.030); Urobilinogen Urine Negative (Negative); pH Urine 5.5 (4.5-7.5)
--- NOTE | 2021-09-06 18:55 | History & Physical Report ---
Date of Service September 06, 2021 Assessment & Plan (1) Recurrent falls: Plan: Patient is 86-year-old female with PMH HTN, HLD, DM II, CKD III, hypothyroidism, H/O PE/DVT on chronic Eliquis, lower extremity edema, venous insufficiency, anxiety, depression, dementia, frequent falls presented to ER from [facility] for reported fall today. Reported patient was using her walker and walking down [address] today with aide when she lifted her hands off of her wal ker and fell backwards. Patient reports doesn't remember what happened. Daughter reports patient at baseline mental status. CT head: No acute intracranial abnormality. CT C-spine: No acute fractures. Pelvis x-ray and right femur x-ray no acute fractures Telemetry to monitor for any arrhythmias Fall precautions PT/OT eval (2) Hypoxia: (3) Bronchitis: Plan: Mucous plugging In ER found to be hypoxic 87% on room air up to 96% on 2 L. No leukocytosis. Negative SARS-CoV-2 NAAT CTA chest: 1. Cardiomegaly without pulmonary emboli. 2. Bronchial wall thickening suggestive of bronchitis or reactive airway disease with mild mucous plugging. 3. No acute fracture. 4. Healed chronic fracture deformity of the proximal left humerus with severe associated glenohumeral osteoarthritis. In ER given Rocephin, 500ml NSS Will continue Rocephin Blood cultures pending Continue supplemental oxygen as needed Incentive spirometer, flutter valve Duo nebs (4) Urinary incontinence: Plan: History of chronic urinary incontinence Possible UTI on UA. No urinary symptoms reported Will continue Rocephin Urine culture pending (5) Type 2 diabetes mellitus: Plan: On insulin A1c: 9.5 in 2019 Basal bolus insulin per protocol A1c in a.m. (6) CKD (chronic kidney disease), stage III: Plan: Cr: 1.8. Baseline ~1.6 Monitor renal functions, avoid nephrotoxic agents when possible (7) History of pulmonary embolism: (8) History of DVT (deep vein thrombosis): Plan: On chronic Eliquis Continue Eliquis (9) Dementia: Plan: Daughter reports patient seems around baseline mental status Monitor for delirium Frequent reorientation (10) Hypothyroidism: Plan: Continue levothyroxine (11) Hypertension: Plan: Not on medications at home (12) Dyslipidemia: Plan: Continue simvastatin (13) Extremity edema: Plan: History of chronic BLE edema, venous insufficiency Hold Lasix and reevaluate tomorrow (14) Anxiety and depression: Plan: Continue buspirone, escitalopram DVT Prophylaxis On Eliquis DNR/DNI as per discussion with pt and pt's daughter Follows with Dr Weaver for routine care Pt was seen and care coordinated with Dr Grossman. See addendum. Pt will be transferred to [facility] hospital team tomorrow as PCP is [place] provider. Dr Keller admitting provider today is aware. 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 Limited history obtained from patient secondary to confusion. Patient's daughter assists in history, outpatient chart reviewed. Patient is unsure why she is at ER today. She reports she does not remember fall. Patient's daughter reports patient was using her walker and walking down [address] today. She reports an aide was walking beside patient when it is reported patient lifted her hands off of her walker and fell backwards. Denies any loss of consciousness. Daughter states that patient falls several times a month. She reports at baseline patient has confusion and is typically only alert to person. Reports patient with chronic intermittent cough and uses cough drops with relief. Reports chronic incontinence. Denies any known increased cough, denies any known reported fever, vomiting, diarrhea. Denies chest pain, shortness of breath, abdominal pain, extremity pain, vomiting, diarrhea, GUTIERREZ, dizziness. She is denying any other pain, dysuria. Allergies Allergy/AdvReac Type Severity Reaction Status Date / Time doxycycline Allergy Mild Rash Verified 09/06/21 17:02 oxybutynin Allergy Mild Rash Verified 09/06/21 17:02 codeine Allergy Unknown Unknown Verified 09/06/21 17:02 fluticasone Allergy Unknown Unknown Verified 09/06/21 17:02 salmeterol Allergy Unknown Unknown Verified 09/06/21 17:02 Sulfa (Sulfonamide Allergy Unknown Unknown Verified 09/06/21 17:02 Antibiotics) troleandomycin Allergy Unknown Unknown Verified 09/06/21 17:02 Macrolide Antibiotics Allergy Unknown Verified 09/06/21 17:02 milk Allergy noted as Verified 09/06/21 17:02 "milk protein extract" allergy Home Medications Medication Instructions Recorded Confirmed Type folic acid 1 mg tablet 1 mg PO QAM 08/04/18 09/06/21 History latanoprost 0.005 % eye drops 1 drp OPB HS 08/04/18 09/06/21 History (Xalatan) levothyroxine 88 mcg tablet 88 mcg PO QAM 08/04/18 09/06/21 History simvastatin 20 mg tablet 20 mg PO HS 08/04/18 09/06/21 History trazodone 50 mg tablet 50 mg PO HS 08/04/18 09/06/21 History acetaminophen 500 mg tablet 500 mg PO TID 12/16/18 09/06/21 History (Tylenol Extra Strength) apixaban 2.5 mg tablet (Eliquis) 2.5 mg PO BID 03/13/19 09/06/21 History carboxymethylcellulose sodium 1 % 1 drp OPB QID 06/04/19 09/06/21 History eye drops (Artificial Tears (carboxymethylcellulose)) thiamine HCl (vitamin B1) 50 mg 50 mg PO QAM 08/03/19 09/06/21 History tablet (Vitamin B-1) cetirizine 10 mg tablet 5 mg PO QAM 10/25/19 09/06/21 History furosemide 20 mg tablet 20 mg PO DAILY #15 tab 02/14/20 09/06/21 Rx buspirone 15 mg tablet 15 mg PO BID 03/12/20 09/06/21 History benzonatate 100 mg capsule 100 mg PO TID PRN 04/16/20 09/06/21 History insulin glargine 100 unit/mL 34 unit SUBCUT QAM ml 04/16/20 09/06/21 History subcutaneous solution (Lantus U-100 Insulin) triamcinolone acetonide 0.1 % 1 applic TOPICAL BID PRN #30 g 07/06/20 09/06/21 Rx topical cream calcium carbonate 600 mg-vitamin 1 tab PO BID 11/29/20 09/06/21 History D3 10 mcg (400 unit) tablet (Calcium 600 + D(3)) escitalopram oxalate 10 mg tablet 20 mg PO QAM tab 01/08/21 09/06/21 History walker #1 ea 02/14/21 09/06/21 Rx nystatin 100,000 unit/gram topical 1 applic TOPICAL BID #30 g 03/22/21 09/06/21 Rx cream insulin aspart U-100 100 unit/mL 5 unit SUBCUT TIDM 09/06/21 09/06/21 History subcutaneous solution (Novolog U-100 Insulin aspart) Past Med/Surg History Medical History (Updated 09/06/21 @ 19:29 by Mary Kumari PA-C) Allergic rhinitis Anxiety and depression Arthritis Arthritis of knee Asthma Cardiomyopathy CKD (chronic kidney disease), stage III Dementia Dyslipidemia Endometrioid adenocarcinoma of uterus Extremity edema History of DVT (deep vein thrombosis) (2014) "LLE 2014" History of pulmonary embolism (2014) "2014" Hypertension Hypothyroidism Hypothyroidism Recurrent falls Type 2 diabetes mellitus Urinary incontinence Vertigo Vitamin D deficiency Surgical History H/O cataract extraction History of robot-assisted laparoscopic hysterectomy (10/2018) 11/10/18 - with BSO with B/L SLN Biopsy and Right pelvic lymph node dissection and cystoscopy (Dr. Buffy Mayo in [place]) S/P appendectomy as a child S/P foot surgery (2004) S/P tonsillectomy and adenoidectomy Family History Mother , Passed in 80s/90's of old age No problems noted. Father , Passed in 70's of black lung complications ([facility]) Lung disease Sister , Passed in 80's of unknown No problems noted. Sister , Passed in 60's of unknown No problems noted. Brother , Passed in 60's of unknown (alcoholic) Hypertension Brother , Passed in late 70's of unknown Lung disease Daughter No problems noted. Son No problems noted. Son No problems noted. Son No problems noted. 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 Feels Safe at Home: Yes Childhood Exposure to Second-Hand Smoke: No Diet Comment: well balanced diet caffeine: No during the past year weight has: increased > 10 lbs Dental Care, Regularly: No Physical Activity Frequency: Does not Exercise Seatbelt Use: always Sunscreen Use: No Assistive Devices: Walker Review of Systems Review of Systems: Unobtainable due to cognitive status Physical Exam Physical Exam: General: no distress, obese Head: normocephalic, atraumatic Eyes: PERRL, EOM's intact, conjunctiva non-injected, anicteric ENT: normal inspection external ears, nose, mucous membranes moist Neck: supple, trachea midline, non-tender Lungs: On 2L via NC with sat 98%, no respiratory distress, +scattered wheezing CV: RRR, no murmur, 1+ pretibial edema Abd: protuberant, normal BS, soft, non-tender Ext: no cyanosis, no erythema, no calf tenderness Neuro: Alert, oriented to person only, no focal deficits noted, normal affect Skin: warm, dry Results & Data Results & Data ([facility]) Vital Signs (Past 12 Hours) Vital Signs Temp Pulse Pulse Resp BP BP Pulse Ox 09/06/21 18:00 72 14 132/74 97 09/06/21 16:03 82 20 135/78 98 09/06/21 14:45 72 18 95 09/06/21 14:03 37.1 C 86 72 20 116/94 116/94 96 Laboratory Results Short CBC 09/06/21 09/06/21 Range/Units 14:10 14:10 WBC 7.58 (4.8-10.8) K/uL Hgb 13.7 (12.0-16.0) g/dL Hct 43.4 (37-47) % Plt Count 219 (130-400) K/uL Creatinine 1.80 H (0.6-1.2) mg/dl BMP 09/06/21 14:10 Sodium 141 Potassium 3.7 Chloride 96 L Carbon Dioxide 38 H BUN 27 H Creatinine 1.80 H Glucose 186 H Calcium 9.7 Cardiac Enzymes 09/06/21 Range/Units 14:10 Troponin I < 0.03 (0-0.04) ng/ml Liver Function 09/06/21 Range/Units 14:10 Total Bilirubin 0.6 (0.2-1.0) mg/dl AST 14 (13-39) U/L ALT 9 (7-52) U/L Alkaline Phosphatase 63 (34-104) U/L Albumin 3.9 (3.4-5.0) gm/dl Urine 09/06/21 Range/Units 18:24 Urine Color Yellow Urine Appearance Clear (Clear) Urine pH 5.5 (4.5-7.5) Ur Specific [place] 1.031 H (1.000-1.030) Urine Protein Negative (Negative) Urine Glucose (UA) Negative (Negative) Diagnostic Findings Cervical Spine CT 09/06/21 14:18 CT cervical spine wo con CLINICAL HISTORY: Unwitnessed fall. Neck pain. COMPARISON STUDY: 06/03/2019 CT DOSE: 1555.89 mGy.cm TECHNIQUE: Standard CT of the Cervical Spine was performed without IV contrast. A dose lowering technique was utilized adhering to the principles of ALARA. FINDINGS: Bones: There is no evidence for an acute fracture or malalignment. The heights of the vertebral bodies are maintained. The vertebral bodies are in anatomic alignment. The odontoid is intact and the atlantoaxial articulation is within normal limits. Disc spaces: Moderate to marked disc space narrowing is present from C4 through C7 with minimal endplate sclerosis and osteophyte formation present. Apophyseal joints: Degenerative apophyseal joint disease is also seen throughout the cervical spine. Soft tissues: The prevertebral soft tissues are within normal limits. IMPRESSION: 1. No acute osseous pathology. 2. Degenerative disc and degenerative joint disease are again seen. ACT 112: Negative or not required by law. Electronically signed by: Mainor Acuna M.D. 09/06/2021 3:49 PM Chest X-Ray 09/06/21 14:18 XR chest 1V portable HISTORY: Atypical chest pain. Fall. COMPARISON: Chest 03/12/2020. FINDINGS: The cardiac silhouette remains mildly enlarged. No focal lung consolidations to suggest pneumonia. No evidence for pulmonary edema. No pleural effusions. No pneumothorax. Calcifications again noted within the aortic knob. Advanced degenerative changes within the left shoulder. IMPRESSION: No significant change compared to the prior study. No acute process. ACT 112: Negative or not required by law. Electronically signed by: Ciro Lopez M.D. 09/06/2021 4:34 PM Femur X-Ray 09/06/21 14:18 XR pelvis 1-2V routine, XR femur RT 2V routine, XR tibia fibula RT 2V HISTORY: 86 years-old Female fall acute pain of the pelvis, right hip and femur COMPARISON: CT abdomen and pelvis 11/04/2019, pelvis radiographs 10/25 2019 TECHNIQUE: AP view of the pelvis with 2 views of the right femur, 2 views of the right tibia and fibula. FINDINGS: PELVIS: Demineralized appearance the bones. Moderate osteoarthritis of the hips. No acute fracture, dislocation or avascular necrosis. Unremarkable soft tissues. FEMUR: No acute fracture, dislocation or opaque foreign body. Moderate right knee osteoarthritis. TIBIA/FIBULA: No acute fracture, dislocation or opaque foreign body. IMPRESSION: No acute fracture or dislocation. ACT 112: Negative or not required by law. The above report was generated using voice recognition software. It may contain grammatical, syntax or spelling errors. Electronically signed by: Phu Youngblood M.D. 09/06/2021 4:[address] 09/06/21 14:18 CT head/brain wo con CLINICAL HISTORY: 86 years-old Female with fall. Acute head trauma status post fall TECHNIQUE: Multiple axial CT images of the head were obtained without contrast. A dose lowering technique was utilized adhering to the principles of ALARA. COMPARISON: Head CT 11/29/2020 FINDINGS: No acute intracranial hemorrhage, midline shift, intracranial mass, hydrocephalus, territorial ischemia or abnormal extra-axial collection. Age- related involutional changes. White matter hypodensities suggest chronic microvascular ischemic disease. Cerebral vascular calcifications. Motion degraded exam. There are a few small lipomas noted involving the falx cerebri. The calvarium is intact. Prior bilateral lens repair. The paranasal sinuses, mastoid air cells, and middle ear cavities are clear. IMPRESSION: No acute intracranial abnormality or calvarial fracture. ACT 112: Negative or not required by law. The above report was generated using voice recognition software. It may contain grammatical, syntax or spelling errors. Electronically signed by: Phu Youngblood M.D. 09/06/2021 3:34 PM Pelvis X-Ray 09/06/21 14:18 XR pelvis 1-2V routine, XR femur RT 2V routine, XR tibia fibula RT 2V HISTORY: 86 years-old Female fall acute pain of the pelvis, right hip and femur COMPARISON: CT abdomen and pelvis 11/04/2019, pelvis radiographs 10/25 2019 TECHNIQUE: AP view of the pelvis with 2 views of the right femur, 2 views of the right tibia and fibula. FINDINGS: PELVIS: Demineralized appearance the bones. Moderate osteoarthritis of the hips. No acute fracture, dislocation or avascular necrosis. Unremarkable soft tissues. FEMUR: No acute fracture, dislocation or opaque foreign body. Moderate right knee osteoarthritis. TIBIA/FIBULA: No acute fracture, dislocation or opaque foreign body. IMPRESSION: No acute fracture or dislocation. ACT 112: Negative or not required by law. The above report was generated using voice recognition software. It may contain grammatical, syntax or spelling errors. Electronically signed by: Phu Youngblood M.D. 09/06/2021 4:35 PM Tibia/Fibula X-Ray 09/06/21 14:18 XR pelvis 1-2V routine, XR femur RT 2V routine, XR tibia fibula RT 2V HISTORY: 86 years-old Female fall acute pain of the pelvis, right hip and femur COMPARISON: CT abdomen and pelvis 11/04/2019, pelvis radiographs 10/25 2019 TECHNIQUE: AP view of the pelvis with 2 views of the right femur, 2 views of the right tibia and fibula. FINDINGS: PELVIS: Demineralized appearance the bones. Moderate osteoarthritis of the hips. No acute fracture, dislocation or avascular necrosis. Unremarkable soft tissues. FEMUR: No acute fracture, dislocation or opaque foreign body. Moderate right knee osteoarthritis. TIBIA/FIBULA: No acute fracture, dislocation or opaque foreign body. IMPRESSION: No acute fracture or dislocation. ACT 112: Negative or not required by law. The above report was generated using voice recognition software. It may contain grammatical, syntax or spelling errors. Electronically signed by: Phu Youngblood M.D. 09/06/2021 4:35 PM Chest CTA 09/06/21 16:54 CT angio chest PE protocol CT DOSE: 933.06 mGy.cm HISTORY: 86 years-old Female with PE. Acute shortness of breath with chest pain status post fall TECHNIQUE: Multiple CTA images of the chest were obtained after the intravenous administration of 120 ml Optiray. Coronal and sagittal MIPS were obtained from the axial data set and were submitted for review. All measurements were obtained according to NASCET criteria. A dose lowering technique was utilized adhering to the principles of ALARA. COMPARISON: Head CT 08/15/2017. FINDINGS: CTA: Moderate cardiomegaly. No pericardial effusion. Atherosclerosis of the thoracic aorta without aneurysm or dissection. There is patency of the imaged great vessels. Pulmonary artery is dilated measuring up to 3.7 cm. Respiratory motion artifact limits evaluation of the segmental and subsegmental pulmonary arterial branches. CT CHEST: No thyroid nodule. Mildly prominent mediastinal and hilar lymph nodes are likely reactive. No pneumothorax, pleural effusion or overt pulmonary edema. Respiratory motion artifact dilation lung parenchyma. Bronchial wall thickening with mild bibasilar mucous plugging. Subsegmental bibasilar groundglass densities. 1.6 cm groundglass nodular density of the inferior segment lingula on image 78. On the reformatted images this has a linear morphology and is also likely atelectatic. Decreased AP dimension of the trachea and bronchi. No acute process of the imaged upper abdomen. Unremarkable soft tissues. Degenerative changes of the shoulders and spine. Chronic left proximal humeral fracture deformity. IMPRESSION: 1. Cardiomegaly without pulmonary emboli. 2. Bronchial wall thickening suggestive of bronchitis or reactive airway disease with mild mucous plugging. 3. No acute fracture. 4. Healed chronic fracture deformity of the proximal left humerus with severe associated glenohumeral osteoarthritis. ACT 112: Negative or not required by law. The above report was generated using voice recognition software. It may contain grammatical, syntax or spelling errors. Electronically signed by: Phu Youngblood M.D. 09/06/2021 5:51 PM Code Status & VTE Plan VTE Prophylaxis Plan VTE Prophylaxis will be ordered: Yes Supervising Physician Co-Signing Physician Notes Attending addendum: The patient was seen and examined in the emergency room She is an 86-year-old female with PMH HTN, HLD, DM II, CKD III, hypothyroidism, H/O PE/DVT on chronic Eliquis, lower extremity edema, venous insufficiency, anxiety, depression, dementia, frequent falls presented to ER from [facility] personal care for reported fall today She was walking with her walker and after taking of the hands from the walker she fell backwards Denies any loss of consciousness did not have any warning symptoms before the fall Has been feeling reasonably okay during examination On examination Lying in bed comfortably Hemodynamically stable Chest-decreased breath sounds bilaterally without any crackles Heart-S1-S2 Abdomen-benign Remedies-trace edema bilaterally 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
[2021-09-06] MEDS ORDERED: ACETAMINOPHEN 325 MG TAB PO PRN (20:27)
[2021-09-06] MEDS ORDERED: POLYETHYLENE (MIRALAX) 17 GM PACK PO PRN (20:27)
[2021-09-06] MEDS ORDERED: GLUCOSE 10 TABS/TUBE PO PRN (20:27)
[2021-09-06] MEDS ORDERED: ONDANSETRON INJ 2 MG/ML 2 ML VIAL IV PRN (20:27)
[2021-09-06] MEDS ORDERED: DEXTROSE 50% 50 ML SYRINGE IV PRN (20:27)
[2021-09-06] MEDS ORDERED: GLUCOSE 40% GEL 15 GM TUBE PO PRN (20:27)
[2021-09-06] MEDS ORDERED: CARBOHYDRATES FOR HYPOGLYCEMIA PO PRN (20:27)
[2021-09-06] MEDS ORDERED: GLUCAGON FOR INJ 1 MG VIAL SQ PRN (20:27)
[2021-09-06] MEDS ORDERED: MICONAZOLE NITRATE POWDER 43 GM EXT PRN (20:29)
[2021-09-06] MEDS: busPIRone 15 MG TAB PO SCH (21:58)
[2021-09-06] MEDS: APIXABAN 2.5 MG TAB PO SCH (21:58)
[2021-09-06] MEDS: CALCIUM 600MG + VIT D 400 IU TAB PO SCH (21:59)
[2021-09-06] MEDS: guaiFENesin 600 MG TABCR PO SCH (22:00)
[2021-09-06] MEDS: INSULIN GLARGINE SOLOSTAR 100 UNITS/ML 3 ML PEN SC SCH (22:02)
[2021-09-06] MEDS: LATANOPROST 0.005% OP SOLN 2.5 ML BTL OPB SCH (22:02)
[2021-09-06] MEDS: SIMVASTATIN 20 MG TAB PO SCH (22:03)
[2021-09-06] MEDS: traZODone HCL 50 MG TAB PO SCH (22:04)
[2021-09-06] MEDS: INSULIN ASPART PER UNIT SC SCH (22:09)
[2021-09-06] MEDS: ARTIFICIAL TEARS OP SCH (22:10)
[2021-09-07] MEDS: LEVOTHYROXINE SODIUM 88 MCG TABLET PO SCH (05:30)
[2021-09-07 07:14] LABS: Hematocrit (blood only) 39.5 % (37-47); Hemoglobin 11.9 g/dL (12.0-16.0); Mean Corpuscular Hemoglobin 29.2 pg (25-34); Mean Corpuscular Hgb Conc 30.1 g/dL (32-36); Mean Corpuscular Volume 97.1 fL (80-100); Mean Platelet Volume 10.3 fL (7.4-10.4); Platelet Count 166 K/uL (130-400); RDW Coefficient of Variation 13.4 % (11.5-14.5); RDW Standard Deviation 47.6 fL (36.4-46.3); Red Blood Count 4.07 M/uL (4.2-5.4); White Blood Count 6.55 K/uL (4.8-10.8)
[2021-09-07] MEDS: ALBUT/IPRATROP 3MG/0.5MG NEB 3 ML VIAL NEB SCH ×4 (07:27→19:30)
[2021-09-07 07:39] LABS: Creatinine Clr Calc Pharmacy 32.1 ml/min; Est GFR (African American) 37.7 ml/min; Est GFR (Non-African American) 32.6 ml/min; Potassium 3.6 mmol/L (3.5-5.1)
[2021-09-07] MEDS: CETIRIZINE HCL 10 MG TABLET PO SCH (08:55)
[2021-09-07] MEDS: busPIRone 15 MG TAB PO SCH ×2 (08:56→21:03)
[2021-09-07] MEDS: CALCIUM 600MG + VIT D 400 IU TAB PO SCH ×2 (08:56→21:03)
[2021-09-07] MEDS: ESCITALOPRAM OXALATE 20 MG TAB PO SCH (08:56)
[2021-09-07] MEDS: guaiFENesin 600 MG TABCR PO SCH ×2 (08:57→21:18)
[2021-09-07] MEDS: THIAMINE HCL 50 MG TABLET PO SCH (08:57)
[2021-09-07] MEDS: INSULIN GLARGINE SOLOSTAR 100 UNITS/ML 3 ML PEN SC SCH ×2 (08:57→21:03)
[2021-09-07] MEDS: APIXABAN 2.5 MG TAB PO SCH ×2 (08:57→20:59)
[2021-09-07] MEDS: FOLIC ACID 1 MG TAB PO SCH (08:57)
[2021-09-07] MEDS: INSULIN ASPART PER UNIT SC SCH ×4 (09:05→21:32)
[2021-09-07] MEDS: ARTIFICIAL TEARS OP SCH ×4 (09:14→21:01)
[2021-09-07 09:51] LABS: Estimated Average Glucose 223 mg/dl; Hemoglobin A1C 9.4 % (4.5-5.6)
[2021-09-07] MEDS ORDERED: BENZONATATE 100 MG CAPSULE PO PRN (11:18)
[2021-09-07] MEDS ORDERED: PHARMACY GLYCEMIC MGMT CONSULT PRN (11:20)
--- NOTE | 2021-09-07 11:32 | Hospitalist Progress Note ---
Date of Service September 07, 2021 Assessment & Plan (1) Recurrent falls: Plan: (1) Recurrent falls: - no overt etiology but possible UTI No known angina; Fall precautions PT/OT eval Treat UTI (2) Hypoxia: On room air during roundsfollow clinically (3) Bronchitis with mucous plugging Sputum culture Incentive spirometry, flutter valve and observe; Hold off hypertonic saline nebulization and more aggressive chest therapy for now (3) UTIdifficult to ascertain symptoms given dementia; could well be asymptomatic bacteriuria History of ESBL E. coli However, given history of falls, benefit of doubtertapenem (5) Type 2 diabetes mellitus: Poor control; adjusted Lantus; pharmacy glycemic consult (6) CKD (chronic kidney disease), stage III: Appears at baseline, follow (7) History of pulmonary embolism: (8) History of DVT (deep vein thrombosis): Plan: On chronic Eliquis Continue Eliquis (9) Dementia: Plan: Per nursing and per report of daughter in H&P at baseline mental status Monitor for delirium Frequent reorientation (10) Hypothyroidism: Plan: Continue levothyroxine (12) Dyslipidemia: Plan: Continue simvastatin (13) Anxiety and depression: Plan: Continue buspirone, escitalopram Mild anemia can be followed Admission and Anticipated Discharge Date Admission Date: September 06, 2021 Subjective Follow-up of recurrent falls; dementia, poor history; seems to state that she gets dizzy but no angina (chest pain) Physical Exam Physical Exam: Constitutional and general: No acute distress, looks biologic age Head and face: No puffiness, atraumatic Eyes: No scleral icterus, extraocular movements normal Neck: Supple, no JVD Musculoskeletal: No acute joint swelling, no bony abnormalities Skin/dermatologic/integument: No rash, no purpura Hematologic and lymphatic: pallor +, no petechia Gastrointestinal/abdomen: Nondistended, soft, nonacute Neurologic: Cranial nerves intact, nonfocal Dementia overt Cardiovascular: Heart rhythm regular, no rub, no murmur, no gallop Respiratory: Chest movements equal, no use of accessory muscles, no adventitious sounds Vital Signs Temp Pulse Pulse Pulse Resp BP BP 09/07/21 11:12 67 16 09/07/21 07:28 66 16 09/07/21 07:26 69 09/07/21 07:19 36.8 C 84 18 09/07/21 04:14 36.8 C 82 18 09/06/21 23:25 36.6 C 66 18 09/06/21 22:18 71 09/06/21 21:20 60 09/06/21 20:27 36.7 C 74 18 111/74 09/06/21 20:00 66 22 158/71 H 09/06/21 19:18 78 22 130/93 09/06/21 18:00 72 14 132/74 09/06/21 16:03 82 20 135/78 09/06/21 14:45 72 18 09/06/21 14:03 37.1 C 86 72 20 116/94 116/94 BP Pulse Ox 09/07/21 11:12 90 09/07/21 07:28 99 09/07/21 07:26 09/07/21 07:19 125/87 98 09/07/21 04:14 140/80 100 09/06/21 23:25 140/97 99 09/06/21 22:18 09/06/21 21:20 09/06/21 20:27 98 09/06/21 20:00 99 09/06/21 19:18 100 09/06/21 18:00 97 09/06/21 16:03 98 09/06/21 14:45 95 09/06/21 14:03 96 Intake and Output 09/06/21 09/07/21 09/07/21 22:59 06:59 14:59 Intake Total 750 / 850 100 / 850 Output Total 220 / 220 Balance 750 / 630 -120 / 630 Intake: IV 550 / 550 Sodium Chlorid e 0.9% 1000ML 500 500 / 500 ml @ 999 mls/h r IV .Q31M ONE Rx#:[id number] cefTRIAXone SO DIUM 1,000 mg In 50 / 50 50 ml @ 100 ml s/hr IV NOW STA Rx#:[id number] Oral 200 / 300 100 / 300 Output: Urine Amount (Ca theter) 220 / 220 External 220 / 220 Other: Weight 101.3 kg 102.8 kg Weight Measureme nt Method Built in Bedscale Built in [facility] Results & Data Results & Data ([facility]) Vital Signs (Past 12 Hours) Vital Signs Temp Pulse Pulse Resp BP Pulse Ox 09/07/21 11:12 67 16 90 03/12/22 07:28 66 16 99 09/07/21 07:26 69 09/07/21 07:19 36.8 C 84 18 125/87 98 09/07/21 04:14 36.8 C 82 18 140/80 100 09/06/21 23:25 36.6 C 66 18 140/97 99 Laboratory Results Laboratory Results - last 24 hr 09/06/21 09/06/21 09/06/21 14:10 14:10 14:10 WBC 7.58 RBC 4.58 Hgb 13.7 Hct 43.4 MCV 94.8 MCH 29.9 MCHC 31.6 L RDW Std Deviation 45.9 RDW Coeff of Beverley 13.3 Plt Count 219 MPV 10.2 Immature Gran % (Auto) 0.3 Neut % (Auto) 74.4 Lymph % (Auto) 12.5 [place] % (Auto) 7.0 Eos % (Auto) 5.5 Baso % (Auto) 0.3 Neut # (Auto) 5.64 Lymph # (Auto) 0.95 L [place] # (Auto) 0.53 Eos # (Auto) 0.42 Baso # (Auto) 0.02 Immature Gran # (Auto) 0.02 PT 11.9 INR 1.1 APTT 30.4 PTT Ratio 1.1 VBG pH VBG pCO2 VBG pO2 VBG HCO3 VBG O2 Saturation VBG Base Excess Barometric Pressure Sodium 141 Potassium 3.7 Chloride 96 L Carbon Dioxide 38 H Anion Gap 7 BUN 27 H Creatinine 1.80 H Est Cr Clr Drug Dosing Not Reportable Est GFR ( Amer) 28.8 Est GFR (Non-Af Amer) 24.9 BUN/Creatinine Ratio 15.0 Glucose 186 H POC Glucose Estimat Average Glucose Hemoglobin A1c Calcium 9.7 Total Bilirubin 0.6 AST 14 ALT 9 Alkaline Phosphatase 63 Troponin I < 0.03 Total Protein 6.7 Albumin 3.9 Globulin 2.8 Albumin/Globulin Ratio 1.4 Lipase 43 Urine Color Urine Appearance Urine pH Ur Specific [place] Urine Protein Urine Glucose (UA) Urine Ketones Urine Blood Urine Nitrite Urine Bilirubin Urine Urobilinogen Ur Leukocyte Esterase Urine WBC (Auto) Urine RBC (Auto) U Hyaline Cast (Auto) U Epithel Cells (Auto) Urine Bacteria (Auto) SARS-CoV-2, RNA, NAAT 03/11/22 03/11/22 03/11/22 14:32 16:50 18:24 WBC RBC Hgb Hct MCV MCH MCHC RDW Std Deviation RDW Coeff of Beverley Plt Count MPV Immature Gran % (Auto) Neut % (Auto) Lymph % (Auto) [place] % (Auto) Eos % (Auto) Baso % (Auto) Neut # (Auto) Lymph # (Auto) [place] # (Auto) Eos # (Auto) Baso # (Auto) Immature Gran # (Auto) PT INR APTT PTT Ratio VBG pH 7.40 VBG pCO2 64 H VBG pO2 32 VBG HCO3 39 VBG O2 Saturation < 60.0 VBG Base Excess 11.4 Barometric Pressure 728.1 Sodium Potassium Chloride Carbon Dioxide Anion Gap BUN Creatinine Est Cr Clr Drug Dosing Est GFR ( Amer) Est GFR (Non-Af Amer) BUN/Creatinine Ratio Glucose POC Glucose Estimat Average Glucose Hemoglobin A1c Calcium Total Bilirubin AST ALT Alkaline Phosphatase Troponin I Total Protein Albumin Globulin Albumin/Globulin Ratio Lipase Urine Color Yellow Urine Appearance Clear Urine pH 5.5 Ur Specific [place] 1.031 H Urine Protein Negative Urine Glucose (UA) Negative Urine Ketones Negative Urine Blood Negative Urine Nitrite Positive A Urine Bilirubin Negative Urine Urobilinogen Negative Ur Leukocyte Esterase 1+ H Urine WBC (Auto) 10-30 H Urine RBC (Auto) 0-4 U Hyaline Cast (Auto) 1-5 U Epithel Cells (Auto) 5-10 H Urine Bacteria (Auto) 4+ H SARS-CoV-2, RNA, NAAT NEGATIVE 09/06/21 09/07/21 09/07/21 20:50 06:42 06:42 WBC 6.55 RBC 4.07 L Hgb 11.9 L Hct 39.5 MCV 97.1 MCH 29.2 MCHC 30.1 L RDW Std Deviation 47.6 H RDW Coeff of Beverley 13.4 Plt Count 166 MPV 10.3 Immature Gran % (Auto) Neut % (Auto) Lymph % (Auto) [place] % (Auto) Eos % (Auto) Baso % (Auto) Neut # (Auto) Lymph # (Auto) [place] # (Auto) Eos # (Auto) Baso # (Auto) Immature Gran # (Auto) PT INR APTT PTT Ratio VBG pH VBG pCO2 VBG pO2 VBG HCO3 VBG O2 Saturation VBG Base Excess Barometric Pressure Sodium 141 Potassium 3.6 Chloride 99 Carbon Dioxide 37 H Anion Gap 5 BUN 23 Creatinine 1.44 H D Est Cr Clr Drug Dosing 32.1 Est GFR ( Amer) 37.7 Est GFR (Non-Af Amer) 32.6 BUN/Creatinine Ratio 16.0 Glucose 114 H POC Glucose 190 H Estimat Average Glucose Hemoglobin A1c Calcium 9.0 Total Bilirubin AST ALT Alkaline Phosphatase Troponin I Total Protein Albumin Globulin Albumin/Globulin Ratio Lipase Urine Color Urine Appearance Urine pH Ur Specific [place] Urine Protein Urine Glucose (UA) Urine Ketones Urine Blood Urine Nitrite Urine Bilirubin Urine Urobilinogen Ur Leukocyte Esterase Urine WBC (Auto) Urine RBC (Auto) U Hyaline Cast (Auto) U Epithel Cells (Auto) Urine Bacteria (Auto) SARS-CoV-2, RNA, NAAT 09/07/21 09/07/21 06:42 07:16 WBC RBC Hgb Hct MCV MCH MCHC RDW Std Deviation RDW Coeff of Beverley Plt Count MPV Immature Gran % (Auto) Neut % (Auto) Lymph % (Auto) [place] % (Auto) Eos % (Auto) Baso % (Auto) Neut # (Auto) Lymph # (Auto) [place] # (Auto) Eos # (Auto) Baso # (Auto) Immature Gran # (Auto) PT INR APTT PTT Ratio VBG pH VBG pCO2 VBG pO2 VBG HCO3 VBG O2 Saturation VBG Base Excess Barometric Pressure Sodium Potassium Chloride Carbon Dioxide Anion Gap BUN Creatinine Est Cr Clr Drug Dosing Est GFR ( Amer) Est GFR (Non-Af Amer) BUN/Creatinine Ratio Glucose POC Glucose 129 H Estimat Average Glucose 223 Hemoglobin A1c 9.4 H Calcium Total Bilirubin AST ALT Alkaline Phosphatase Troponin I Total Protein Albumin Globulin Albumin/Globulin Ratio Lipase Urine Color Urine Appearance Urine pH Ur Specific [place] Urine Protein Urine Glucose (UA) Urine Ketones Urine Blood Urine Nitrite Urine Bilirubin Urine Urobilinogen Ur Leukocyte Esterase Urine WBC (Auto) Urine RBC (Auto) U Hyaline Cast (Auto) U Epithel Cells (Auto) Urine Bacteria (Auto) SARS-CoV-2, RNA, NAAT PG Care Time/CCT Total # of Minutes Spent Total Time Spent with Patient: Total time spent is greater than 50% in coordination of care (as documented) at patient's floor/unit and/or counseling patient: Coding Level of Care Code 95697 Subseq Hosp Care Lvl 2 Diagnoses Recurrent falls R29.6
[2021-09-07] MEDS ORDERED: ERTAPENEM SODIUM 1,000 MG in SYRINGE 0 ML IV SCH (11:45)
--- NOTE | 2021-09-07 13:04 | Pharmacy Report ---
Pharmacy Glycemic Short Note 2 - Date of Service September 07, 2021 - Glycemic Short BSG Results (Last 24 hours): 09/06/21 09/06/21 09/07/21 14:10 20:50 06:42 Glucose 186 H 114 H POC Glucose 190 H 09/07/21 09/07/21 07:16 11:38 Glucose POC Glucose 129 H 81 OUTPATIENT ANTIDIABETIC REGIMEN: * Lantus 34 units SQ AM * Novolog 5 units TID meals * A1c 9.4% 09/07/21 ASSESSMENT: * 86 year old male type 2 diabetic admitted for recurrent falls, possible UTI, IV Ertapenem * Blood sugars uncontrolled at home, BSG 81mg/dl pre lunch today, decrease Lantus and loosen CF/CR to prevent hypoglycemia * Tighten CF/CR back tomorrow after reduced dose of Lantus started tonight * Slightly higher goal range for patient's age, and recurrent falls PLAN FOR INPATIENT GLYCEMIC CONTROL: * Basal insulin -decrease * Lantus 10 units SQ BID * Bolus insulin -loosen CF/CR * NovoLog per scale ACHS or Q6hrs while NPO * Goal Range: Low 120 mg/dL - High 160 mg/dL * Correction Factor: 30 mg/dL/unit * Nutritional / Prandial insulin per carb ratio of 1 unit per 15 grams CHO consumed
[2021-09-07] MEDS ORDERED: cefTRIAXone SODIUM 2,000 MG in DEXTROSE 5% 50 ML IV SCH (18:00)
[2021-09-07] MEDS ORDERED: INSULIN GLARGINE SOLOSTAR 100 UNITS/ML 3 ML PEN SC SCH (21:00)
[2021-09-07] MEDS: SIMVASTATIN 20 MG TAB PO SCH (21:06)
[2021-09-07] MEDS: traZODone HCL 50 MG TAB PO SCH (21:07)
[2021-09-07] MEDS: LATANOPROST 0.005% OP SOLN 2.5 ML BTL OPB SCH (21:08)
[2021-09-08] MEDS: LEVOTHYROXINE SODIUM 88 MCG TABLET PO SCH (05:35)
[2021-09-08 07:14] LABS: Basophils # (auto) 0.02 K/uL (0-0.2); Basophils % (auto) 0.4 %; Eosinophils # (auto) 0.47 K/uL (0-0.5); Eosinophils % (auto) 8.5 %; Hematocrit (blood only) 35.9 % (37-47); Hemoglobin 11.1 g/dL (12.0-16.0); Immature Granulocytes # (auto) 0.03 K/uL (0.00-0.02); Immature Granulocytes % (auto) 0.5 %; Lymphocytes # (auto) 0.74 K/uL (1.2-3.4); Lymphocytes % (auto) 13.3 %; Mean Corpuscular Hemoglobin 29.7 pg (25-34); Mean Corpuscular Hgb Conc 30.9 g/dL (32-36); Mean Platelet Volume 9.9 fL (7.4-10.4); Monocytes # (auto) 0.71 K/uL (0.11-0.59); Monocytes % (auto) 12.8 %; Neutrophils # (auto) 3.59 K/uL (1.4-6.5); Neutrophils % (auto) 64.5 %; Platelet Count 148 K/uL (130-400); RDW Coefficient of Variation 13.3 % (11.5-14.5); RDW Standard Deviation 46.5 fL (36.4-46.3); Red Blood Count 3.74 M/uL (4.2-5.4); White Blood Count 5.56 K/uL (4.8-10.8)
[2021-09-08] MEDS: ALBUT/IPRATROP 3MG/0.5MG NEB 3 ML VIAL NEB SCH ×4 (07:18→19:26)
[2021-09-08 07:42] LABS: Albumin Globulin Ratio 1.5 (0.9-2); Albumin Level 3.2 gm/dl (3.4-5.0); BUN Creatinine Ratio 14.3 (10-20); Bilirubin,Total 0.4 mg/dl (0.2-1.0); Calcium 8.8 mg/dl (8.5-10.1); Creatinine Clr Calc Pharmacy 31.6 ml/min; Est GFR (African American) 36.8 ml/min; Est GFR (Non-African American) 31.8 ml/min; Globulin 2.1 gm/dl (2.5-4.0); Potassium 3.7 mmol/L (3.5-5.1); Total Protein 5.3 gm/dl (6.0-8.3)
[2021-09-08] MEDS ORDERED: MEROPENEM CONSULT ACTIVE PRN (08:16)
--- NOTE | 2021-09-08 08:33 | Hospitalist Progress Note ---
Date of Service September 08, 2021 Assessment & Plan (1) Recurrent falls: Plan: (1) Recurrent falls: - no overt etiology but possible UTI Given chills infective etiology in the differentialreculture, broadened to meropenem (worth covering Pseudomonas since institutional residence); sputum culture pending; de-escalate quickly if nothing declares itself No known angina; Fall precautions PT/OT eval Treat possible UTI (2) Acute hypoxic respiratory failureback on oxygen Mucus plugging with findings suggestive of reactive airway disease on CTA Add scheduled bronchodilation with ipratropiumsome question of side effect to salmeterol though not sure how well validated; hold off hypertonic saline Speech therapy eval pending Nasal MRSA CO2 noted on BMP-VBG ordered and noted, pH noted; inclined to follow at present, pulmonary follow-up at some point Respiratory panelother viral studies (3) Bronchitis with mucous plugging In addition to incentive spirometry, flutter valve and observe; As noted, for now, hold off hypertonic saline nebulization and more aggressive chest therapy for now (3) UTIdifficult to ascertain symptoms given dementia; could well be asymptomatic bacteriuria ESBL E. coli in urine culture However, given history of falls, benefit of doubtbroadened to meropenem as above (5) Type 2 diabetes mellitus: sugars better; pharmacy following (6) CKD (chronic kidney disease), stage III: Appears at baseline, follow (7) History of pulmonary embolism: (8) History of DVT (deep vein thrombosis): Plan: On chronic Eliquis Continue Eliquis (9) Dementia: Plan: Per nursing and per report of daughter in H&P at baseline mental status Monitor for delirium Frequent reorientation (10) Hypothyroidism: Plan: Continue levothyroxine (11) Dyslipidemia: Plan: Continue simvastatin (12) Anxiety and depression: Plan: Continue buspirone, escitalopram Mild anemia can be followed Admission and Anticipated Discharge Date Admission Date: September 06, 2021 Subjective Follow-up of recurrent falls; dementia, poor history; does not feel and look well this morning; chills as I was seeing her Physical Exam Physical Exam: Constitutional and general: Mild distress, looks unwell, looks biologic age Head and face: No puffiness, atraumatic Eyes: No scleral icterus, extraocular movements normal Neck: Supple, no JVD Musculoskeletal: No acute joint swelling, no bony abnormalities Skin/dermatologic/integument: No rash, no purpura Hematologic and lymphatic: pallor +, no petechia Gastrointestinal/abdomen: Nondistended, soft, nonacute Neurologic: Cranial nerves intact, nonfocal Dementia overt Cardiovascular: Heart rhythm regular, no rub, no murmur, no gallop Respiratory: Chest movements equal, no use of accessory muscles, no adventitious sounds Extremities: No edema, no cyanosis Results & Data Results & Data ([facility]) Vital Signs (Past 12 Hours) Vital Signs Temp Pulse Pulse Resp BP Pulse Ox 09/08/21 07:19 86 16 100 09/08/21 07:08 62 09/08/21 06:41 36.6 C 80 16 133/75 100 09/08/21 03:00 36.7 C 77 16 124/65 100 09/07/21 23:08 36.9 C 79 16 110/69 98 09/07/21 22:18 76 09/07/21 19:38 37.9 C H 88 16 119/63 90 09/07/21 19:32 90 20 90 Laboratory Results Laboratory Results - last 24 hr 09/07/21 09/07/21 09/07/21 06:42 06:42 11:38 WBC RBC Hgb Hct MCV MCH MCHC RDW Std Deviation RDW Coeff of Beverley Plt Count MPV Immature Gran % (Auto) Neut % (Auto) Lymph % (Auto) [place] % (Auto) Eos % (Auto) Baso % (Auto) Neut # (Auto) Lymph # (Auto) [place] # (Auto) Eos # (Auto) Baso # (Auto) Immature Gran # (Auto) Sodium 141 Potassium 3.6 Chloride 99 Carbon Dioxide 37 H Anion Gap 5 BUN 23 Creatinine 1.44 H D Est Cr Clr Drug Dosing 32.1 Est GFR ( Amer) 37.7 Est GFR (Non-Af Amer) 32.6 BUN/Creatinine Ratio 16.0 Glucose 114 H POC Glucose 81 Estimat Average Glucose 223 Hemoglobin A1c 9.4 H Calcium 9.0 Total Bilirubin AST ALT Alkaline Phosphatase Total Protein Albumin Globulin Albumin/Globulin Ratio 09/07/21 09/07/21 09/08/21 16:33 20:11 06:55 WBC 5.56 RBC 3.74 L Hgb 11.1 L Hct 35.9 L MCV 96.0 MCH 29.7 MCHC 30.9 L RDW Std Deviation 46.5 H RDW Coeff of Beverley 13.3 Plt Count 148 MPV 9.9 Immature Gran % (Auto) 0.5 Neut % (Auto) 64.5 Lymph % (Auto) 13.3 [place] % (Auto) 12.8 Eos % (Auto) 8.5 Baso % (Auto) 0.4 Neut # (Auto) 3.59 Lymph # (Auto) 0.74 L [place] # (Auto) 0.71 H Eos # (Auto) 0.47 Baso # (Auto) 0.02 Immature Gran # (Auto) 0.03 H Sodium Potassium Chloride Carbon Dioxide Anion Gap BUN Creatinine Est Cr Clr Drug Dosing Est GFR ( Amer) Est GFR (Non-Af Amer) BUN/Creatinine Ratio Glucose POC Glucose 164 H 136 H Estimat Average Glucose Hemoglobin A1c Calcium Total Bilirubin AST ALT Alkaline Phosphatase Total Protein Albumin Globulin Albumin/Globulin Ratio 09/08/21 09/08/21 06:55 07:31 WBC RBC Hgb Hct MCV MCH MCHC RDW Std Deviation RDW Coeff of Beverley Plt Count MPV Immature Gran % (Auto) Neut % (Auto) Lymph % (Auto) [place] % (Auto) Eos % (Auto) Baso % (Auto) Neut # (Auto) Lymph # (Auto) [place] # (Auto) Eos # (Auto) Baso # (Auto) Immature Gran # (Auto) Sodium 141 Potassium 3.7 Chloride 99 Carbon Dioxide 40 H Anion Gap 2 L BUN 21 Creatinine 1.47 H Est Cr Clr Drug Dosing 31.6 Est GFR ( Amer) 36.8 Est GFR (Non-Af Amer) 31.8 BUN/Creatinine Ratio 14.3 Glucose 121 H POC Glucose 130 H Estimat Average Glucose Hemoglobin A1c Calcium 8.8 Total Bilirubin 0.4 AST 10 L ALT 7 Alkaline Phosphatase 50 Total Protein 5.3 L D Albumin 3.2 L Globulin 2.1 L Albumin/Globulin Ratio 1.5 PG Care Time/CCT Total # of Minutes Spent Total Time Spent with Patient: Total time spent is greater than 50% in coordination of care (as documented) at patient's floor/unit and/or counseling patient: Coding Level of Care Code 26410 Subseq Hosp Care Lvl 2 Diagnoses Recurrent falls R29.6
[2021-09-08] MEDS: MEROPENEM 500 MG in SYRINGE 0 ML IV SCH ×3 (08:59→20:17)
[2021-09-08] MEDS: guaiFENesin 600 MG TABCR PO SCH ×2 (09:00→20:29)
[2021-09-08] MEDS: CETIRIZINE HCL 10 MG TABLET PO SCH (09:00)
[2021-09-08] MEDS: FOLIC ACID 1 MG TAB PO SCH (09:00)
[2021-09-08] MEDS: APIXABAN 2.5 MG TAB PO SCH ×2 (09:00→20:25)
[2021-09-08] MEDS: busPIRone 15 MG TAB PO SCH ×2 (09:00→20:28)
[2021-09-08] MEDS: THIAMINE HCL 50 MG TABLET PO SCH (09:00)
[2021-09-08] MEDS: ARTIFICIAL TEARS OP SCH ×4 (09:00→20:27)
[2021-09-08] MEDS: CALCIUM 600MG + VIT D 400 IU TAB PO SCH ×2 (09:00→20:28)
[2021-09-08] MEDS: ESCITALOPRAM OXALATE 20 MG TAB PO SCH (09:00)
[2021-09-08 09:01] LABS: Base Excess VBG 9.3 mEq/L; HCO3 VBG 37 mmol/L; PCO2 VBG 69 mmHg (38-50); PO2 VBG 26 mmHg; pH VBG 7.35 (7.36-7.41)
[2021-09-08 09:02] LABS: Oxygen Saturation VBG < 60.0 %
[2021-09-08] MEDS: INSULIN ASPART PER UNIT SC SCH ×4 (09:14→21:11)
[2021-09-08] MEDS: INSULIN GLARGINE SOLOSTAR 100 UNITS/ML 3 ML PEN SC SCH ×2 (09:14→20:32)
[2021-09-08] MEDS ORDERED: IPRATROPIUM BROMIDE NEB SOLN 0.02% 2.5 ML VIAL NEB SCH (15:00)
[2021-09-08 16:28] LABS: Adenovirus PCR Not Detected (NotDetected); Bordetella parapertussis PCR Not Detected (NotDetected); Bordetella pertussis PCR Not Detected (NotDetected); Chlamydia pneumoniae PCR Not Detected (NotDetected); Coronavirus 229E PCR Not Detected (NotDetected); Coronavirus CoV-2 (COVID19)PCR Not Detected (NotDetected); Coronavirus HKU1 PCR Not Detected (NotDetected); Coronavirus NL63 PCR Not Detected (NotDetected); Coronavirus OC43PCR Not Detected (NotDetected); Human Metapneumovirus PCR Not Detected (NotDetected); Influenza A PCR Not Detected (NotDetected); Influenza B PCR Not Detected (NotDetected); Mycoplasma pneumoniae PCR Not Detected (NotDetected); Parainfluenza Virus 1 PCR Not Detected (NotDetected); Parainfluenza Virus 2 PCR Not Detected (NotDetected); Parainfluenza Virus 3 PCR Not Detected (NotDetected); Parainfluenza Virus 4 PCR Not Detected (NotDetected); Respiratory Syncytial VirusPCR Not Detected (NotDetected); Rhinovirus/Enterovirus PCR Not Detected (NotDetected)
[2021-09-08] MEDS: LATANOPROST 0.005% OP SOLN 2.5 ML BTL OPB SCH (20:32)
[2021-09-08] MEDS: SIMVASTATIN 20 MG TAB PO SCH (20:33)
[2021-09-08] MEDS: traZODone HCL 50 MG TAB PO SCH (20:33)
[2021-09-09] MEDS: MEROPENEM 500 MG in SYRINGE 0 ML IV SCH ×2 (01:53→08:27)
[2021-09-09] MEDS: LEVOTHYROXINE SODIUM 88 MCG TABLET PO SCH (05:34)
[2021-09-09] MEDS: ALBUT/IPRATROP 3MG/0.5MG NEB 3 ML VIAL NEB SCH ×4 (07:34→19:16)
[2021-09-09 07:59] LABS: Basophils # (auto) 0.03 K/uL (0-0.2); Basophils % (auto) 0.5 %; Eosinophils # (auto) 0.46 K/uL (0-0.5); Hematocrit (blood only) 38.1 % (37-47); Hemoglobin 11.8 g/dL (12.0-16.0); Immature Granulocytes # (auto) 0.03 K/uL (0.00-0.02); Immature Granulocytes % (auto) 0.5 %; Lymphocytes # (auto) 0.65 K/uL (1.2-3.4); Lymphocytes % (auto) 9.8 %; Mean Corpuscular Hemoglobin 29.9 pg (25-34); Mean Corpuscular Volume 96.5 fL (80-100); Mean Platelet Volume 10.2 fL (7.4-10.4); Monocytes # (auto) 0.76 K/uL (0.11-0.59); Monocytes % (auto) 11.5 %; Neutrophils # (auto) 4.67 K/uL (1.4-6.5); Neutrophils % (auto) 70.7 %; Platelet Count 153 K/uL (130-400); RDW Coefficient of Variation 13.3 % (11.5-14.5); RDW Standard Deviation 46.8 fL (36.4-46.3); Red Blood Count 3.95 M/uL (4.2-5.4)
[2021-09-09] MEDS: CETIRIZINE HCL 10 MG TABLET PO SCH (08:27)
[2021-09-09] MEDS: THIAMINE HCL 50 MG TABLET PO SCH (08:28)
[2021-09-09] MEDS: ESCITALOPRAM OXALATE 20 MG TAB PO SCH (08:28)
[2021-09-09] MEDS: FOLIC ACID 1 MG TAB PO SCH (08:28)
[2021-09-09] MEDS: CALCIUM 600MG + VIT D 400 IU TAB PO SCH ×2 (08:28→22:19)
[2021-09-09 08:29] LABS: Albumin Globulin Ratio 1.4 (0.9-2); Albumin Level 3.3 gm/dl (3.4-5.0); BUN Creatinine Ratio 13.8 (10-20); Bilirubin,Total 0.5 mg/dl (0.2-1.0); Calcium 8.7 mg/dl (8.5-10.1); Creatinine Clr Calc Pharmacy 37.6 ml/min; Est GFR (African American) 45.7 ml/min; Est GFR (Non-African American) 39.4 ml/min; Globulin 2.4 gm/dl (2.5-4.0); Potassium 4.1 mmol/L (3.5-5.1); Total Protein 5.7 gm/dl (6.0-8.3)
[2021-09-09] MEDS: ARTIFICIAL TEARS OP SCH ×4 (08:29→22:18)
[2021-09-09] MEDS: busPIRone 15 MG TAB PO SCH ×2 (08:29→22:18)
[2021-09-09] MEDS: guaiFENesin 600 MG TABCR PO SCH ×2 (08:29→22:19)
[2021-09-09] MEDS: APIXABAN 2.5 MG TAB PO SCH ×2 (08:29→22:18)
[2021-09-09] MEDS: INSULIN ASPART PER UNIT SC SCH ×4 (08:35→22:30)
[2021-09-09] MEDS: INSULIN GLARGINE SOLOSTAR 100 UNITS/ML 3 ML PEN SC SCH ×2 (08:38→22:29)
--- NOTE | 2021-09-09 12:16 | Pharmacy Report ---
Pharmacy Glycemic Short Note 2 - Date of Service September 09, 2021 - Glycemic Short BSG Results (Last 24 hours): 09/08/21 09/08/21 09/09/21 16:19 20:35 07:23 Glucose POC Glucose 245 H 101 H 149 H 09/09/21 09/09/21 07:26 11:39 Glucose 131 H POC Glucose 160 H OUTPATIENT ANTIDIABETIC REGIMEN: * Lantus 34 units SQ AM * Novolog 5 units TID meals * A1c 9.4% 09/07/21 ASSESSMENT: 09/09/21 * Patient's BSGs yesterday were 130- (unable to obtain)- 245-101 mg/dL. * Patient received 28 units of insulin (20 units of basal and 8 units of bolus). * Fasting today was 149 mg/dL. * Increase basal slightly to 24 units as fasting trending upwards. * Continue Novolog. Baseline * 86 year old male type 2 diabetic admitted for recurrent falls, possible UTI, IV Ertapenem * Blood sugars uncontrolled at home, BSG 81mg/dl pre lunch today, decrease Lantus and loosen CF/CR to prevent hypoglycemia * Tighten CF/CR back tomorrow after reduced dose of Lantus started tonight * Slightly higher goal range for patient's age, and recurrent falls PLAN FOR INPATIENT GLYCEMIC CONTROL: * Basal insulin * Lantus 12 units SQ BID * Bolus insulin * NovoLog per scale ACHS or Q6hrs while NPO * Goal Range: Low 120 mg/dL - High 160 mg/dL * Correction Factor: 30 mg/dL/unit * Nutritional / Prandial insulin per carb ratio of 1 unit per 10 grams CHO consumed
[2021-09-09] MEDS: ERTAPENEM SODIUM 1,000 MG in SYRINGE 0 ML IV SCH (12:44)
--- NOTE | 2021-09-09 14:26 | Hospitalist Progress Note ---
Date of Service September 09, 2021 Assessment & Plan (1) Recurrent falls: Plan: Recurrent falls Suspect deconditioning exacerbated by UTI UC positive for ESBL E. coli, ertapenem/meropenem sensitive Patient was broadened to meropenem and recultured, no evidence of pseudomonal infection so narrowed back to ertapenem If chills recur or clinical worsening then would reinstitute Pseudomonas coverage with meropenem Anticipate 5-day course of antibiotics through 09/11 PT/OT recommending SNF, discussed with patient and family. CM to assist Due to ESBL E. coli patient would require complete antibiotics as inpatient or temporary US guided peripheral IV to complete if otherwise stable for discharge prior to completion (2) Acute respiratory failure with hypoxia: Plan: Acute hypoxic respiratory failure -Mucus plugging with findings suggestive of reactive airway disease on CTA -Continue nitro program to 8 hours Nasal MRSA colonized, but no lobar pneumonia on CTA and pro-Cesar negative. VBG with mild respiratory acidosis Respiratory panel negative Improving 09/09, satting 99% on 2 L, wean oxygen to goal greater than 90% and follow Continue chest therapy, incentive spirometry, flutter valve - Allergic to macrolides (3) UTI (urinary tract infection): Plan: As above, ESBL E. coli (4) Type 2 diabetes mellitus: Plan: Goal BSG [id number] Basal bolus, currently on glargine 12 units twice daily Aspart SSIglucose checks AC/at bedtime BMP daily (5) History of pulmonary embolism: Plan: Continue apixaban (6) Anxiety and depression: Plan: Continue BuSpar 15 mg p.o. twice daily Continue Escitalopram 20 mg p.o. every morning Trazodone 50 mg p.o. nightly Plan: DVT prophylaxis: Anticoagulated CODE STATUS: DNR/DNI Disposition: Will require SNF at discharge, currently improving but unresolved oxygen requirements and treatment of UTI as above Admission and Anticipated Discharge Date Admission Date: September 06, 2021 Subjective "[place] "seen in the bedside this morning. No fever/chills/sweats overnight, still feels tired and somewhat weak. Endorses some dysuria with cath. Feels fatigued. Endorses intermittent dry cough, nonproductive. Denies wheezing. Denies abdominal pain, nausea, vomiting. Review of Systems Review of Systems: All systems reviewed & are unremarkable except as noted in Subjective Physical Exam Physical Exam: General: Appears fatigued, ill but nontoxic. NAD. Cooperative. HEENT: Atraumatic, normocephalic. Visual acuity and hearing grossly intact. Pulm: Diminished, trace bibasilar crackles, no wheezes/rales/rhonchi. Symmetrical chest rise. No increase in work of breathing. No respiratory distress. Cardiac: RRR, -mrg. Radial pulses intact and symmetrical. Abdominal: Nontender, nondistended, soft. BS present. Extremities: Warm, dry, moves extremities equally Results & Data Results & Data ([facility]) Vital Signs (Past 12 Hours) Vital Signs Temp Pulse Pulse Resp BP Pulse Ox 09/09/21 11:30 80 20 99 09/09/21 11:13 99 09/09/21 11:03 37.3 C 84 21 132/82 87 L 09/09/21 07:46 37.0 C 80 17 146/72 H 90 09/09/21 03:28 37 C 88 18 149/71 H 95 PG Care Time/CCT Total # of Minutes Spent Total Time Spent with Patient: Total time spent is greater than 50% in coordination of care (as documented) at patient's floor/unit and/or counseling patient: Coding Level of Care Code 76876 Subseq Hosp Care Lvl 2 Diagnoses Recurrent falls R29.6 Acute respiratory failure with hypoxia J96.01 UTI (urinary tract infection) N39.0 Type 2 diabetes mellitus E11.9; Z79.4 Diabetes mellitus exterminator helper termite insulin use: with exterminator helper termite use Diabetes mellitus complication status: without complication History of pulmonary embolism Z86.711 Anxiety and depression F41.9; F32.9 (1) Type 2 diabetes mellitus Diabetes mellitus fdc insulin use: with exterminator helper termite use Diabetes mellitus complication status: without complication Qualified Code(s): E11.9 - Type 2 diabetes mellitus without complications; Z79.4 - termite treater helper (current) use of insulin
[2021-09-09] MEDS ORDERED: MEROPENEM 500 MG in SYRINGE 0 ML IV SCH (15:00)
[2021-09-09] MEDS: LATANOPROST 0.005% OP SOLN 2.5 ML BTL OPB SCH (22:20)
[2021-09-09] MEDS: SIMVASTATIN 20 MG TAB PO SCH (22:20)
[2021-09-09] MEDS: traZODone HCL 50 MG TAB PO SCH (22:20)
[2021-09-10] MEDS: LEVOTHYROXINE SODIUM 88 MCG TABLET PO SCH (05:46)
[2021-09-10] MEDS: ALBUT/IPRATROP 3MG/0.5MG NEB 3 ML VIAL NEB SCH ×3 (07:33→15:26)
[2021-09-10] MEDS: APIXABAN 2.5 MG TAB PO SCH ×2 (08:01→20:59)
[2021-09-10] MEDS: ARTIFICIAL TEARS OP SCH ×4 (08:01→21:00)
[2021-09-10 08:02] LABS: Basophils # (auto) 0.02 K/uL (0-0.2); Basophils % (auto) 0.3 %; Eosinophils # (auto) 0.43 K/uL (0-0.5); Eosinophils % (auto) 7.2 %; Hematocrit (blood only) 37.7 % (37-47); Hemoglobin 11.5 g/dL (12.0-16.0); Immature Granulocytes # (auto) 0.03 K/uL (0.00-0.02); Immature Granulocytes % (auto) 0.5 %; Lymphocytes # (auto) 0.79 K/uL (1.2-3.4); Lymphocytes % (auto) 13.2 %; Mean Corpuscular Hemoglobin 29.3 pg (25-34); Mean Corpuscular Hgb Conc 30.5 g/dL (32-36); Mean Corpuscular Volume 95.9 fL (80-100); Mean Platelet Volume 10.4 fL (7.4-10.4); Monocytes # (auto) 0.49 K/uL (0.11-0.59); Monocytes % (auto) 8.2 %; Neutrophils # (auto) 4.23 K/uL (1.4-6.5); Neutrophils % (auto) 70.6 %; Platelet Count 160 K/uL (130-400); RDW Coefficient of Variation 13.2 % (11.5-14.5); RDW Standard Deviation 46.4 fL (36.4-46.3); Red Blood Count 3.93 M/uL (4.2-5.4); White Blood Count 5.99 K/uL (4.8-10.8)
[2021-09-10] MEDS: CALCIUM 600MG + VIT D 400 IU TAB PO SCH ×2 (08:02→21:00)
[2021-09-10] MEDS: CETIRIZINE HCL 10 MG TABLET PO SCH (08:02)
[2021-09-10] MEDS: busPIRone 15 MG TAB PO SCH ×2 (08:02→21:00)
[2021-09-10] MEDS: ESCITALOPRAM OXALATE 20 MG TAB PO SCH (08:03)
[2021-09-10] MEDS: guaiFENesin 600 MG TABCR PO SCH ×2 (08:03→21:00)
[2021-09-10] MEDS: FOLIC ACID 1 MG TAB PO SCH (08:03)
[2021-09-10] MEDS: INSULIN GLARGINE SOLOSTAR 100 UNITS/ML 3 ML PEN SC SCH ×2 (08:04→21:11)
[2021-09-10] MEDS: THIAMINE HCL 50 MG TABLET PO SCH (08:04)
[2021-09-10 08:25] LABS: Albumin Globulin Ratio 1.3 (0.9-2); Albumin Level 3.3 gm/dl (3.4-5.0); Bilirubin,Total 0.4 mg/dl (0.2-1.0); Calcium 9.2 mg/dl (8.5-10.1); Creatinine Clr Calc Pharmacy 32.9 ml/min; Est GFR (African American) 39.1 ml/min; Est GFR (Non-African American) 33.7 ml/min; Globulin 2.6 gm/dl (2.5-4.0); Potassium 4.2 mmol/L (3.5-5.1); Total Protein 5.9 gm/dl (6.0-8.3)
[2021-09-10] MEDS: INSULIN ASPART PER UNIT SC SCH ×4 (09:00→21:10)
--- NOTE | 2021-09-10 09:17 | Pharmacy Report ---
Pharmacy Glycemic Short Note 2 - Date of Service September 10, 2021 - Glycemic Short BSG Results (Last 24 hours): 09/09/21 09/09/21 09/09/21 11:39 16:36 19:55 Glucose POC Glucose 160 H 237 H 188 H 09/10/21 09/10/21 07:43 07:44 Glucose 153 H POC Glucose 167 H OUTPATIENT ANTIDIABETIC REGIMEN: * Lantus 34 units SQ AM * Novolog 5 units TID meals * A1c 9.4% 09/07/21 ASSESSMENT: 09/10/21: * Dana received 32 units of SQ insulin yesterday (24 units Lantus + 8 units novolog) with majority of BSGs being above goal. * Fasting BSG of 167 mg/dL this morning. Lantus was increased 20% yesterday. Wi ll slightly increase again today. * Carb coverage will be tightened for post prandial hyperglycemia 09/09/21 * Patient's BSGs yesterday were 130- (unable to obtain)- 245-101 mg/dL. * Patient received 28 units of insulin (20 units of basal and 8 units of bolus). * Fasting today was 149 mg/dL. * Increase basal slightly to 24 units as fasting trending upwards. * Continue Novolog. Baseline * 86 year old male type 2 diabetic admitted for recurrent falls, possible UTI, IV Ertapenem * Blood sugars uncontrolled at home, BSG 81mg/dl pre lunch today, decrease Lantus and loosen CF/CR to prevent hypoglycemia * Tighten CF/CR back tomorrow after reduced dose of Lantus started tonight * Slightly higher goal range for patient's age, and recurrent falls PLAN FOR INPATIENT GLYCEMIC CONTROL: * Basal insulin * Continue Lantus 12 units SQ BID * Extra 4 units SQ given with lunch * Bolus insulin * NovoLog per scale ACHS or Q6hrs while NPO * Goal Range: Low 120 mg/dL - High 160 mg/dL * Correction Factor: 30 mg/dL/unit * Nutritional / Prandial insulin per carb ratio of 1 unit per 8 grams CHO consumed
[2021-09-10] MEDS ORDERED: INSULIN GLARGINE SOLOSTAR 100 UNITS/ML 3 ML PEN SC ONE (12:00)
[2021-09-10] MEDS: ERTAPENEM SODIUM 1,000 MG in SYRINGE 0 ML IV SCH (14:20)
[2021-09-10] MEDS ORDERED: ALBUT/IPRATROP 3MG/0.5MG NEB 3 ML VIAL NEB PRN (15:59)
--- NOTE | 2021-09-10 18:09 | Hospitalist Progress Note ---
Date of Service September 10, 2021 Assessment & Plan (1) Recurrent falls: Plan: Recurrent falls Suspect deconditioning exacerbated by UTI UC positive for ESBL E. coli, ertapenem/meropenem sensitive Patient was broadened to meropenem and recultured, no evidence of pseudomonal infection so narrowed back to ertapenem If chills recur or clinical worsening then would reinstitute Pseudomonas coverage with meropenem Anticipate 5-7-day course of antibiotics PT/OT recommending SNF, discussed with patient and family. CM to assist Due to ESBL E. coli patient would require complete antibiotics as inpatient or temporary US guided peripheral IV to complete if otherwise stable for discharge prior to completion -ordered US guided peripheral IV line. (2) Acute respiratory failure with hypoxia: Plan: Acute hypoxic respiratory failure -Mucus plugging with findings suggestive of reactive airway disease on CTA -Continue nitro program to 8 hours Nasal MRSA colonized, but no lobar pneumonia on CTA and pro-Cesar negative. VBG with mild respiratory acidosis Respiratory panel negative Improving 09/09, satting 99% on 2 L, wean oxygen to goal greater than 90% and follow Continue chest therapy, incentive spirometry, flutter valve - Allergic to macrolides (3) UTI (urinary tract infection): Plan: As above, ESBL E. coli (4) Type 2 diabetes mellitus: Plan: Goal BSG 537318 Basal bolus, currently on glargine 12 units twice daily Aspart SSIglucose checks AC/at bedtime BMP daily (5) History of pulmonary embolism: Plan: Continue apixaban (6) Anxiety and depression: Plan: Continue BuSpar 15 mg p.o. twice daily Continue Escitalopram 20 mg p.o. every morning Trazodone 50 mg p.o. nightly Plan: DVT prophylaxis: Anticoagulated CODE STATUS: DNR/DNI Disposition: Will require SNF at discharge, currently improving but unresolved oxygen requirements and treatment of UTI as above Admission and Anticipated Discharge Date Admission Date: September 06, 2021 Subjective 86 yo female reports no new symptoms. Review of Systems Review of Systems: All systems reviewed & are unremarkable except as noted in HPI & below Physical Exam Physical Exam: General: Appears fatigued, ill but nontoxic. NAD. Cooperative. HEENT: Atraumatic, normocephalic. Visual acuity and hearing grossly intact. Pulm: Diminished, trace bibasilar crackles, no wheezes/rales/rhonchi. Symmetrical chest rise. No increase in work of breathing. No respiratory distress. Cardiac: RRR, -mrg. Radial pulses intact and symmetrical. Abdominal: Nontender, nondistended, soft. BS present. Extremities: Warm, dry, moves extremities equally Results & Data Results & Data ([facility]) Vital Signs (Past 12 Hours) Vital Signs Temp Pulse Pulse Resp BP BP Pulse Ox 09/10/21 15:51 37.2 C 75 16 107/62 97 09/10/21 14:51 81 09/10/21 12:35 37.2 C 97 H 20 104/66 97 09/10/21 11:19 90 16 98 09/10/21 07:57 36.9 C 78 16 122/76 98 09/10/21 07:35 70 09/10/21 07:34 77 16 98 PG Care Time/CCT Total # of Minutes Spent Total Time Spent with Patient: Total time spent is greater than 50% in coordination of care (as documented) at patient's floor/unit and/or counseling patient: Coding Level of Care Code 11831 Subseq Hosp Care Lvl 3 Diagnoses Recurrent falls R29.6 Acute respiratory failure with hypoxia J96.01 UTI (urinary tract infection) N39.0 Type 2 diabetes mellitus E11.9; Z79.4 Diabetes mellitus assisted insulin use: with watermelon inspector use Diabetes mellitus complication status: without complication History of pulmonary embolism Z86.711 Anxiety and depression F41.9; F32.9 (1) Type 2 diabetes mellitus Diabetes mellitus assisted insulin use: with watermelon inspector use Diabetes mellitus complication status: without complication Qualified Code(s): E11.9 - Type 2 diabetes mellitus without complications; Z79.4 - superintendent terminal (current) use of insulin
[2021-09-10] MEDS: SIMVASTATIN 20 MG TAB PO SCH (21:01)
[2021-09-10] MEDS: LATANOPROST 0.005% OP SOLN 2.5 ML BTL OPB SCH (21:01)
[2021-09-10] MEDS: traZODone HCL 50 MG TAB PO SCH (21:01)
[2021-09-11] MEDS: LEVOTHYROXINE SODIUM 88 MCG TABLET PO SCH (06:05)
[2021-09-11 06:20] LABS: Basophils # (auto) 0.01 K/uL (0-0.2); Basophils % (auto) 0.1 %; Eosinophils # (auto) 0.64 K/uL (0-0.5); Eosinophils % (auto) 8.7 %; Hematocrit (blood only) 37.2 % (37-47); Hemoglobin 11.4 g/dL (12.0-16.0); Immature Granulocytes # (auto) 0.02 K/uL (0.00-0.02); Immature Granulocytes % (auto) 0.3 %; Lymphocytes # (auto) 0.67 K/uL (1.2-3.4); Lymphocytes % (auto) 9.1 %; Mean Corpuscular Hemoglobin 29.6 pg (25-34); Mean Corpuscular Hgb Conc 30.6 g/dL (32-36); Mean Corpuscular Volume 96.6 fL (80-100); Mean Platelet Volume 10.7 fL (7.4-10.4); Monocytes # (auto) 0.79 K/uL (0.11-0.59); Monocytes % (auto) 10.8 %; Neutrophils # (auto) 5.21 K/uL (1.4-6.5); Platelet Count 172 K/uL (130-400); RDW Coefficient of Variation 13.2 % (11.5-14.5); RDW Standard Deviation 46.8 fL (36.4-46.3); Red Blood Count 3.85 M/uL (4.2-5.4); White Blood Count 7.34 K/uL (4.8-10.8)
[2021-09-11 06:55] LABS: Albumin Globulin Ratio 1.2 (0.9-2); Albumin Level 3.1 gm/dl (3.4-5.0); BUN Creatinine Ratio 19.2 (10-20); Bilirubin,Total 0.3 mg/dl (0.2-1.0); Calcium 9.4 mg/dl (8.5-10.1); Creatinine Clr Calc Pharmacy 36.8 ml/min; Est GFR (African American) 44.8 ml/min; Est GFR (Non-African American) 38.6 ml/min; Globulin 2.5 gm/dl (2.5-4.0); Total Protein 5.6 gm/dl (6.0-8.3)
[2021-09-11 07:49] VITALS: TEMP 98.8; O2SAT 98
[2021-09-11] MEDS: INSULIN ASPART PER UNIT SC SCH (08:57)
[2021-09-11] MEDS ORDERED: INSULIN GLARGINE SOLOSTAR 100 UNITS/ML 3 ML PEN SC SCH (09:00)
[2021-09-11] MEDS: busPIRone 15 MG TAB PO SCH (09:06)
[2021-09-11] MEDS: APIXABAN 2.5 MG TAB PO SCH (09:06)
[2021-09-11] MEDS: CETIRIZINE HCL 10 MG TABLET PO SCH (09:07)
[2021-09-11] MEDS: ESCITALOPRAM OXALATE 20 MG TAB PO SCH (09:07)
[2021-09-11] MEDS: ARTIFICIAL TEARS OP SCH (09:07)
[2021-09-11] MEDS: CALCIUM 600MG + VIT D 400 IU TAB PO SCH (09:07)
[2021-09-11] MEDS: FOLIC ACID 1 MG TAB PO SCH (09:07)
[2021-09-11] MEDS: THIAMINE HCL 50 MG TABLET PO SCH (09:07)
[2021-09-11] MEDS: guaiFENesin 600 MG TABCR PO SCH (09:07)
[2021-09-11] MEDS: ERTAPENEM SODIUM 1,000 MG in SYRINGE 0 ML IV SCH (09:37)
--- NOTE | 2021-09-11 09:44 | Discharge Summary ---
Date of Service September 11, 2021 Admission HPI Per Admitting Provider Patient is 86-year-old female with PMH HTN, HLD, DM II, CKD III, hypothyroidism, H/O PE/DVT on chronic Eliquis, lower extremity edema, venous insufficiency, anxiety, depression, dementia, frequent falls presented to ER from [facility] for reported fall today. Limited history obtained from patient secondary to confusion. Patient's daughter assists in history, outpatient chart reviewed. Patient is unsure why she is at ER today. She reports she does not remember fall. Patient's daughter reports patient was using her walker and walking down [address] today. She reports an aide was walking beside patient when it is reported patient lifted her hands off of her walker and fell backwards. Denies any loss of consciousness. Daughter states that patient falls several times a month. She reports at baseline patient has confusion and is typically only alert to person. Reports patient with chronic intermittent cough and uses cough drops with relief. Reports chronic incontinence. Denies any known incre ased cough, denies any known reported fever, vomiting, diarrhea. Denies chest pain, shortness of breath, abdominal pain, extremity pain, vomiting, diarrhea, GUTIERREZ, dizziness. She is denying any other pain, dysuria. Principal Diagnosis recurrent falls likely from deconditioning complicated by UTI. Discharge Exam General: Appears fatigued, ill but nontoxic. NAD. Cooperative. HEENT: Atraumatic, normocephalic. Visual acuity and hearing grossly intact. Pulm: Diminished, trace bibasilar crackles, no wheezes/rales/rhonchi. Symmetrical chest rise. No increase in work of breathing. No respiratory distress. Cardiac: RRR, -mrg. Radial pulses intact and symmetrical. Abdominal: Nontender, nondistended, soft. BS present. Extremities: Warm, dry, moves extremities equally Discharge Data Allergies Allergy/AdvReac Type Severity Reaction Status Date / Time doxycycline Allergy Mild Rash Verified 09/06/21 17:02 oxybutynin Allergy Mild Rash Verified 09/06/21 17:02 codeine Allergy Unknown Unknown Verified 09/06/21 17:02 fluticasone Allergy Unknown Unknown Verified 09/06/21 17:02 salmeterol Allergy Unknown Unknown Verified 09/06/21 17:02 Sulfa (Sulfonamide Allergy Unknown Unknown Verified 09/06/21 17:02 Antibiotics) troleandomycin Allergy Unknown Unknown Verified 09/06/21 17:02 Macrolide Antibiotics Allergy Unknown Verified 09/06/21 17:02 milk Allergy noted as Verified 09/06/21 17:02 "milk protein extract" allergy Consultations 09/06/21 18:14 ED Decision to Admit Stat Ordered Studies 09/06/21 14:18 CT cervical spine wo con Stat CT head/brain wo con Stat 09/06/21 16:54 CT angio chest PE protocol Stat 09/10/21 11:24 US guide vascular access Routine Diabetes Follow up Diabetes Follow-up Needed for HgbA1c >9% Hospital Course (1) Recurrent falls: Recurrent falls Suspect deconditioning exacerbated by UTI UC positive for ESBL E. coli, ertapenem/meropenem sensitive Patient was broadened to meropenem and recultured, no evidence of pseudomonal infection so narrowed back to ertapenem If chills recur or clinical worsening then would reinstitute Pseudomonas coverage with meropenem will complete 7-day course of antibiotics PT/OT recommending SNF, discussed with patient and family. CM to assist. -Patient agreeable. Due to ESBL E. coli patient would require complete antibiotics as inpatient or temporary US guided peripheral IV to complete if otherwise stable for discharge prior to completion. -Peripheral ultrasound guided line was placed. -Patient agreeable to discharge. (2) Acute respiratory failure with hypoxia: Acute hypoxic respiratory failure -Mucus plugging with findings suggestive of reactive airway disease on CTA -Continue nitro program to 8 hours Nasal MRSA colonized, but no lobar pneumonia on CTA and pro-Cesar negative. VBG with mild respiratory acidosis Respiratory panel negative Improving 09/09, satting 99% on 2 L, wean oxygen to goal greater than 90% and follow Continue chest therapy, incentive spirometry, flutter valve - Allergic to macrolides (3) UTI (urinary tract infection): As above, ESBL E. coli (4) Type 2 diabetes mellitus: Goal BSG [id number] Basal bolus, currently on glargine 12 units twice daily Aspart SSIglucose checks AC/at bedtime BMP daily (5) History of pulmonary embolism: Continue apixaban (6) Anxiety and depression: Continue BuSpar 15 mg p.o. twice daily Continue Escitalopram 20 mg p.o. every morning Trazodone 50 mg p.o. nightly DVT prophylaxis: Anticoagulated CODE STATUS: DNR/DNI Total Time Total Time Spent Total Time Spent (In Minutes): 32 Discharge Plan Discharge Items Patient Disposition: Transfer Long Term Fac Reason For Visit: FALL, HYPOXIA Discharge Diagnosis: Fall Activity: As commented below Activity Comment: as per Physical therapy recommendation/ increase as tolerated Non-emergency contact: Primary Care Provider Call non-emergency contact if: you have any medication questions Follow-up/Referrals: Shiv Manley [Primary Care Provider] - Diet: Carb Consistent or DM2, Heart Healthy and Lactose Intolerant Addtl Attending Provider Instructions: You have been hospitalized for an acute medical problem. During your stay at [facility], we have made an effort to correct the problem that brought you to the hospital while keeping you as comfortable as possible. Medications were used to bring your condition under control and your discharge instructions will include directions for any medications you should take after leaving the hospital. Please make sure you see your Primary Care Provider as part of your follow up plan. Will require antibiotics for an additional 2 more days. Next dose tomorrow at 9:30 am Pending Studies at Discharge: No Stand-Alone Forms: [facility] Skilled Items Patient informed of condition?: Yes DNR: Yes (DNR/DNI) Discharge Level of Care: Skilled Communicable Disease: No Discharge Prognosis: Stable Lines: None and US Guided Peripheral IV Urinary Catheter: No Medications and DC Order Prescriptions: New ertapenem 1 gram recon soln 1 g IV DAILY Qty: 2 RF: 0 Continued thiamine HCl (vitamin B1) [Vitamin B-1] 50 mg tablet 50 mg PO QAM RF: 0 Lantus U-100 Insulin 100 unit/mL solution 34 unit subcut QAM RF: 0 triamcinolone acetonide 0.1 % cream 1 applic topical BID PRN (Reason: itching) Qty: 30 RF: 0 escitalopram oxalate 10 mg tablet 20 mg PO QAM RF: 0 (DME) walker Misc See Rx Instructions .Route Qty: 1 RF: 0 nystatin 100,000 unit/gram cream 1 applic topical BID Qty: 30 RF: 0 furosemide 20 mg tablet 20 mg PO DAILY Qty: 15 RF: 2 benzonatate 100 mg capsule 100 mg PO TID PRN (Reason: Cough) RF: 0 latanoprost [Xalatan] 0.005 % Drops 1 drp OPB HS RF: 0 trazodone 50 mg Tablet 50 mg PO HS RF: 0 levothyroxine 88 mcg Tablet 88 mcg PO QAM RF: 0 simvastatin 20 mg Tablet 20 mg PO HS RF: 0 folic acid 1 mg Tablet 1 mg PO QAM RF: 0 acetaminophen [Tylenol Extra Strength] 500 mg tablet 500 mg PO TID RF: 0 Eliquis 2.5 mg Tablet 2.5 mg PO BID RF: 0 Artificial Tears (cmc) 1 % Drops 1 drp OPB QID RF: 0 buspirone 15 mg Tablet 15 mg PO BID RF: 0 cetirizine 10 mg Tablet 5 mg PO QAM RF: 0 insulin aspart U-100 [Novolog U-100 Insulin aspart] 100 unit/mL solution 5 unit subcut TIDM RF: 0 calcium carbonate-vitamin D3 [Calcium 600 + D(3)] 600 mg(1,500mg) -400 unit Tablet 1 tab PO BID RF: 0 Discharge Orders: Discharge Order (Routine); Ordered 09/11/21 Ordered By: Jorge Fong Admission Data Admit Date/Time: 09/06/21 18:29 Attending Provider: Jorge Fong Admit Provider: Ceferino Grossman Primary Care Provider: Shiv Manley Other Providers: Keanu Evans ; uYe Keller Other Interventions: Discharge Summary Assessment (RN) Last Done: 09/11/21 10:15 Coding Level of Care Code D/C DAY MANAGEMENT >30 MINS Diagnoses Recurrent falls R29.6 Acute respiratory failure with hypoxia J96.01 UTI (urinary tract infection) N39.0 Type 2 diabetes mellitus E11.9; Z79.4 Diabetes mellitus complication status: without complication Diabetes mellitus care home insulin use: with care home use History of pulmonary embolism Z86.711 Anxiety and depression F41.9; F32.9
[2021-09-11 10:22] VITALS: BP 104/66; PULSE 84
== END 2021-09-11 11:09 | DRG 689 ==
LOC: ED 13:57 → 2W 18:29 → SUATTDRO 18:29 → 2W 19:59